=== PATIENT | female | born 1950 ===

== ENCOUNTER → 2020-07-04 12:29 | Outpatient (BNVA) | payer MEDICARE, SELFPAY | PROVIDERS: PCP Family Medicine; Visit Provider Internal Medicine Cardiovascular Disease | DX: I10 Essential (primary) hypertension (principal); Z79.899 Other long term (current) drug therapy | CPT/HCPCS: 99212 ==

== ENCOUNTER 2020-10-15 10:47 | Outpatient (REF) | payer MEDICARE, SELFPAY ==
--- NOTE | ~2020-10-15 | US_ITS ---
EXAMINATION: PELVIC ULTRASOUND CLINICAL INFORMATION: Pelvic pain COMPARISON: Previous CT of the abdomen and pelvis most recent March 2019 TECHNIQUE: Transabdominal and transvaginal pelvic ultrasound was performed. Transvaginal exam was performed for better visualization of the uterus and ovaries. FINDINGS: The uterus is anteverted and measures 5.1 x 2.7 x 3.9 cm in dimension. No focal uterine lesion is seen. There is fluid in the endometrial cavity and endocervical canal. The endometrium does not appear thickened. Endometrial thickness measures 0.2 cm. No focal uterine lesion is seen. The ovaries are not seen. There is no fluid in the pelvis. US/US transvaginal IMPRESSION: Fluid in the endometrial and endocervical canal. The endometrium does not appear thickened. The ovaries are not seen.
--- NOTE | ~2020-10-15 | US_ITS ---
EXAMINATION: PELVIC ULTRASOUND CLINICAL INFORMATION: Pelvic pain COMPARISON: Previous CT of the abdomen and pelvis most recent March 2019 TECHNIQUE: Transabdominal and transvaginal pelvic ultrasound was performed. Transvaginal exam was performed for better visualization of the uterus and ovaries. FINDINGS: The uterus is anteverted and measures 5.1 x 2.7 x 3.9 cm in dimension. No focal uterine lesion is seen. There is fluid in the endometrial cavity and endocervical canal. The endometrium does not appear thickened. Endometrial thickness measures 0.2 cm. No focal uterine lesion is seen. The ovaries are not seen. There is no fluid in the pelvis. US/US pelvic complete IMPRESSION: Fluid in the endometrial and endocervical canal. The endometrium does not appear thickened. The ovaries are not seen.
== END 2020-10-15 10:48 | disposition home or self-care (01) ==
LOC: HO.US 10:47
PROVIDERS: PCP Family Medicine; Visit Provider Family Medicine
DX: R10.2 Pelvic and perineal pain (principal)
CPT/HCPCS: 76830; 76856

== ENCOUNTER 2021-01-08 07:06 | Emergency (ER) | payer MEDICARE, SELFPAY ==
--- NOTE | ~2021-01-08 | CT_ITS ---
EXAMINATION: CT FACIAL BONES WITHOUT CONTRAST CLINICAL INFORMATION: Dental infection. COMPARISON: None TECHNIQUE: 3 mm thin axial and reformatted 1.5 mm thin sagittal and coronal images of facial bones were obtained. This CT examination was performed using dose optimization techniques as appropriate, variously including the following: *Automated exposure control *Adjustment of mA and/or kV according to patient size (this includes techniques or standardized protocols for targeted exams where dose is matched to indication/reason for exam; i.e. extremities or head) *Use of iterative reconstruction technique DLP: 407 mGy-cm FINDINGS: Patient is rotated to the right. There is no acute maxillofacial fracture. The pterygoid plates are intact. The zygomatic arches are intact. The lamina papyracea are intact. The orbital rims are intact. The paranasal sinuses are well-aerated. No air-fluid levels are seen. There is no deviation of the nasal septum. The ostiomeatal complexes are clear. The lamina papyracea are intact. The ethmoid roofs are symmetric. The carotid canals are normally covered by bone. There are no visible maxillary tooth visualized. Most of the mandibular teeth are visualized. There is minimal periapical cyst left proximal premolar teeth. No additional bony abnormality seen involving the mandible. Minimal left anterior buccal soft tissue swelling is suspected. This best visualized on axial image 19/4. The orbits are normal. The TMJs are unremarkable. The imaged portions of the brain demonstrate no acute abnormality. CT/CT facial bones wo con IMPRESSION: Small left mandibular premolar periapical cyst but no evidence of dental abscess or bony abnormality involving the maxilla and mandible. Minimal soft tissue swelling left mandibular buccal space is suspected. No gas visualized to suspect an abscess.
--- NOTE | 2021-01-08 07:13 | PC.NURSE ---
called for financial systems manager
[2021-01-08 07:26] VITALS: BP 148/80; BP 152/75; PULSE 110; PULSE 112; RESP 18; TEMP 36.6; O2SAT 96; BMI 32.8
--- NOTE | 2021-01-08 07:31 | ED.DENTAL ---
HPI - Dental/Oral General Chief complaint: Dental/Oral Stated complaint: facial pain Time Seen by Provider: 01/08/21 07:31 Source: patient Mode of arrival: EMS Limitations: language barrier History of Present Illness HPI Narrative: patient with dental infection and facial swelling. Patient states that she broke a tooth 2 weeks ago. Last night she started to develop swelling. No fever or chills Onset (ago): day(s) Duration: constant Severity: moderate Related Data Home Medications Medication Instructions Recorded Confirmed aspirin 81 mg chewable tablet 1 tab PO DAILY 07/04/20 07/04/20 atorvastatin 40 mg tablet mg PO 07/04/20 07/04/20 cholecalciferol (vitamin D3) 50 50 mcg PO DAILY 07/04/20 07/04/20 mcg (2,000 unit) capsule hydrochlorothiazide 25 mg tablet 25 mg PO DAILY 07/04/20 07/04/20 lorazepam 1 mg tablet 1 mg PO BID PRN 07/04/20 07/04/20 losartan 100 mg tablet 100 mg PO DAILY 07/04/20 07/04/20 metformin 500 mg tablet,extended 500 mg PO DAILY 07/04/20 07/04/20 release 24 hr metoprolol tartrate 50 mg tablet 50 mg PO BID 07/04/20 07/04/20 ranitidine HCl 150 mg tablet 150 mg PO BID PRN 07/04/20 07/04/20 Previous Rx's Medication Instructions Recorded amlodipine 10 mg tablet 10 mg PO DAILY #60 tab 07/04/20 amoxicillin-pot clavulanate 1 tab PO BID #20 tab 01/08/21 [Augmentin] Allergies Allergy/AdvReac Type Severity Reaction Status Date / Time codeine Allergy Unknown rash Verified 02/29/20 00:00 hydrocodone [HYDROCODONE] Allergy Unknown UNKNOWN Unverified 05/23/20 16:23 levofloxacin [LEVOFLOXACIN] Allergy Unknown UNKNOWN, Unverified 05/23/20 16:23 rash metronidazole [METRONIDAZOLE] Allergy Unknown UNK Unverified 05/23/20 16:23 promethazine [PROMETHAZINE] Allergy Unknown UNKNOWN, Unverified 05/23/20 16:23 rash Codeine Allergy Unknown swelling/ Uncoded 12/13/18 00:00 itching/ hives dye contrast Allergy Unknown red skin Uncoded 02/29/20 00:00 Hydrocodone-Acetaminophen Allergy Unknown rash Uncoded 02/29/20 00:00 [facility]LY [facility] Past Medical History Medical History (Updated 01/08/21 @ 09:50 by Doron Villalba MD) Hypertension Surgical History (Updated 07/04/20 @ 12:48 by DAVONTE Cast) H/O section Family History Family History (Updated 07/04/20 @ 12:48 by DAVONTE Cast) Father No problems noted. Mother CVD (cardiovascular disease) Social History Social History (Updated 07/04/20 @ 12:48 by DAVONTE Cast) Smoking Status: Never smoker Advance Directives: Yes Advance Directives Information Provided: Yes Advance Directives on File: No Physical Exam Vital Signs: Vital Signs: Last Vital Signs Temp 97.8 F 01/08/21 08:51 Pulse 95 01/08/21 08:51 Resp 19 01/08/21 08:51 BP 139/64 01/08/21 08:51 Pulse Ox 98 01/08/21 08:51 Body Mass Index 32.8 MDM - Dental/Oral MDM Narrative Medical decision making narrative: no evidence of deeper space infection. Will dc on augmentin Lab Data Result diagrams: 01/08/21 08:02 01/08/21 08:02 Labs: Lab Results 01/08/21 01/08/21 Range/Units 08:02 08:02 WBC 15.2 H (4.8-10.8) X10*3/uL RBC 4.19 L (4.20-5.50) X10*6/uL Hgb 13.2 (12.0-16.0) g/dl Hct 38.4 (37-47) % MCV 91.6 (80-98) fL MCH 31.5 (27.0-33.0) pg MCHC 34.4 (31.0-35.0) g/dl RDW 12.3 (11.0-16.0) % Plt Count 229 (160-400) X10*3/uL MPV 10.6 (9.4-12.3) fL Immature Gran % (Auto) 0.4 (0.0-0.4) % Neut % (Auto) 85.7 H (45-73) % Lymph % (Auto) 6.1 L (20-40) % [place] % (Auto) 7.5 (2-11) % Eos % (Auto) 0.1 (0-4) % Baso % (Auto) 0.2 (0-2) % Lymph # (Auto) 0.9 L (1.2-4.9) X10*3/uL [place] # (Auto) 1.1 (0.1-1.2) X10*3/uL Eos # (Auto) 0.0 (0.0-0.4) X10*3/uL Baso # (Auto) 0.0 (0.0-0.2) X10*3/uL Abs Immat Gran (auto) 0.06 H (0.00-0.03) X10*3/uL Absolute Neuts (auto) 13.0 H (2.0-8.3) X10*3/uL Absolute Nucleated RBC 0.000 (0.0-0.012) X10*3/uL Nucleated RBC % (auto) 0.0 (0.0-0.2) /100WBC Sodium 138 (135-145) mmol/L Potassium 3.6 (3.3-5.1) mmol/L Chloride 100 (96-108) mmol/L Carbon Dioxide 28 (22-29) mmol/L Anion Gap 14 (12-20) BUN 10 (9-16) mg/dL Creatinine 0.73 (0.5-1.4) mg/dL Estim Creat Clear Calc 69.1 Estimated GFR > 60 Random Glucose 162 H (60-115) mg/dL Calcium 9.4 (8.4-10.2) mg/dL Imaging Data facial CT: Radiologist's impression: IMPRESSION: Small left mandibular premolar periapical cyst but no evidence of dental abscess or bony abnormality involving the maxilla and mandible. Minimal soft tissue swelling left mandibular buccal space is suspected. No gas visualized to suspect an abscess. Discharge Plan Discharge Clinical Impression: Dental abscess, Dental caries Patient Disposition: Home, Self-Care Instructions: Dental Abscess (ED), Mouth Care (ED) Prescriptions: New amoxicillin-pot clavulanate [Augmentin] 875-125 mg tablet 1 tab PO BID Qty: 20 RF: 0 No Action ranitidine HCl 150 mg tablet 150 mg PO BID PRN (Reason: gas) RF: 0 metformin 500 mg tablet extended release 24 hr 500 mg PO DAILY RF: 0 metoprolol tartrate 50 mg tablet 50 mg PO BID RF: 0 losartan 100 mg tablet 100 mg PO DAILY RF: 0 lorazepam 1 mg tablet 1 mg PO BID PRN (Reason: anxiety) RF: 0 cholecalciferol (vitamin D3) 50 mcg (2,000 unit) capsule 50 mcg PO DAILY RF: 0 atorvastatin 40 mg tablet PO RF: 0 hydrochlorothiazide 25 mg tablet 25 mg PO DAILY RF: 0 aspirin 81 mg tablet,chewable 1 tab PO DAILY RF: 0 amlodipine 10 mg tablet 10 mg PO DAILY Qty: 60 RF: 3 Referrals: Physician,Unknown [Primary Care Provider] - 2 days
--- NOTE | 2021-01-08 07:36 | PC.NURSE ---
dr snow at bedside waiting for nursing staff development coordinator
[2021-01-08] MEDS: Ampicillin Sodium/Sulbactam Na 3 GM in 0.9 % Sodium Chloride 100 ML IV (08:16)
[2021-01-08 08:32] LABS: MANUAL DIFF FLAG NO
[2021-01-08 08:41] LABS: Basophils Percent Auto 0.2 % (0-2); Eosinophils Percent Auto 0.1 % (0-4); Hematocrit 38.4 % (37-47); Hemoglobin 13.2 g/dl (12.0-16.0); Imm Gran Abs Auto 0.06 X10*3/uL (0.00-0.03); Imm Gran Pct Auto 0.4 % (0.0-0.4); Lymphocytes Absolute Auto 0.9 X10*3/uL (1.2-4.9); Lymphocytes Percent Auto 6.1 % (20-40); Mean Corpuscular HGB Conc 34.4 g/dl (31.0-35.0); Mean Corpuscular Hemoglobin 31.5 pg (27.0-33.0); Mean Corpuscular Volume 91.6 fL (80-98); Mean Platelet Volume 10.6 fL (9.4-12.3); Monocytes Absolute Auto 1.1 X10*3/uL (0.1-1.2); Monocytes Percent Auto 7.5 % (2-11); Neutrophils Percent Auto 85.7 % (45-73); Platelet Count 229 X10*3/uL (160-400); Red Blood Count 4.19 X10*6/uL (4.20-5.50); Red Cell Distribution Width 12.3 % (11.0-16.0); White Blood Count 15.2 X10*3/uL (4.8-10.8)
[2021-01-08 08:51] VITALS: BP 139/64; PULSE 95; RESP 19; TEMP 36.6; O2SAT 98
[2021-01-08 09:03] LABS: Anion Gap 14 (12-20); Blood Urea Nitrogen 10 mg/dL (9-16); Calcium 9.4 mg/dL (8.4-10.2); Carbon Dioxide 28 mmol/L (22-29); Chloride 100 mmol/L (96-108); Creatinine Clr Calc Pharmacy 69.1; Estimated Glomerular Filt Rate > 60; Glucose Random 162 mg/dL (60-115); Potassium 3.6 mmol/L (3.3-5.1); Sodium 138 mmol/L (135-145)
[2021-01-08 10:07] VITALS: BP 151/63; PULSE 119; RESP 19; TEMP 36.9; O2SAT 98
== END 2021-01-08 10:20 | disposition home or self-care (01) ==
PROVIDERS: Emergency Provider Emergency Medicine
DX: K04.7 Periapical abscess without sinus (principal); K02.9 Dental caries, unspecified; K03.81 Cracked tooth; Z79.899 Other long term (current) drug therapy
CPT/HCPCS: 36415; 70486; 80048; 85025; 87040; 99284; J0295

== ENCOUNTER 2021-02-19 14:39 | Emergency (ER) | payer MEDICARE, SELFPAY ==
--- NOTE | ~2021-02-19 | XR_ITS ---
EXAMINATION: CHEST AND RIGHT RIB X-RAYS CLINICAL INFORMATION: Right posterior rib pain COMPARISON: Previous chest x-ray most recent June 2010 TECHNIQUE: 2 views of the chest and 3 views of the right ribs FINDINGS: Chest: The cardiac silhouette is upper normal in size. Hilar and mediastinal contours are stable. The lungs are clear. There is no pleural effusion or pneumothorax. There are degenerative changes of the thoracic spine. No rib fracture or bone lesion is seen. There are soft tissue calcifications adjacent to the right and tortuosity arthritis at the acromioclavicular joint. XR/XR ribs RT 2V IMPRESSION: No evidence for acute disease in the chest. Upper normal-size cardiac silhouette. No rib fracture.
--- NOTE | ~2021-02-19 | XR_ITS ---
EXAMINATION: CHEST AND RIGHT RIB X-RAYS CLINICAL INFORMATION: Right posterior rib pain COMPARISON: Previous chest x-ray most recent June 2010 TECHNIQUE: 2 views of the chest and 3 views of the right ribs FINDINGS: Chest: The cardiac silhouette is upper normal in size. Hilar and mediastinal contours are stable. The lungs are clear. There is no pleural effusion or pneumothorax. There are degenerative changes of the thoracic spine. No rib fracture or bone lesion is seen. There are soft tissue calcifications adjacent to the right and tortuosity arthritis at the acromioclavicular joint. XR/XR chest 2V IMPRESSION: No evidence for acute disease in the chest. Upper normal-size cardiac silhouette. No rib fracture.
[2021-02-19 14:53] VITALS: BP 186/83; PULSE 86; RESP 18; TEMP 36.6; O2SAT 97; BMI 33.7
--- NOTE | 2021-02-19 15:11 | ECG_ITS ---
Test Reason : R UPPER RIB PAIN Blood Pressure : / mmHG Vent. Rate : 079 BPM Atrial Rate : 079 BPM P-R Int : 150 ms QRS Dur : 102 ms QT Int : 396 ms P-R-T Axes : 062 014 056 degrees QTc Int : 454 ms Normal sinus rhythm Possible Left atrial enlargement Non-specific intra-ventricular conduction block Borderline ECG When compared with ECG of 02-DEC-2019 00:55, No significant changes seen Referred By: Uriel Cunningham Electronically Signed By:LAWANAD KEEN
--- NOTE | 2021-02-19 15:18 | ED_ITS ---
HPI - General Adult General Chief complaint: General Medical Stated complaint: back pain Time Seen by Provider: 02/19/21 15:10 Source: patient Mode of arrival: ambulatory Limitations: no limitations History of Present Illness HPI narrative: Patient presents to the ED for right posterior upper back/rib pain for the past 5 days. Patient denies any trauma. Patient states pain on range of motion. Patient denies any abdominal pain, nausea, vomiting, fever, chills, dysuria, hematuria, or any recent trauma. Related Data Home Medications Medication Instructions Recorded Confirmed aspirin 81 mg chewable tablet 1 tab PO DAILY 07/04/20 07/04/20 atorvastatin 40 mg tablet mg PO 07/04/20 07/04/20 cholecalciferol (vitamin D3) 50 50 mcg PO DAILY 07/04/20 07/04/20 mcg (2,000 unit) capsule hydrochlorothiazide 25 mg tablet 25 mg PO DAILY 07/04/20 07/04/20 lorazepam 1 mg tablet 1 mg PO BID PRN 07/04/20 07/04/20 losartan 100 mg tablet 100 mg PO DAILY 07/04/20 07/04/20 metformin 500 mg tablet,extended 500 mg PO DAILY 07/04/20 07/04/20 release 24 hr metoprolol tartrate 50 mg tablet 50 mg PO BID 07/04/20 07/04/20 ranitidine HCl 150 mg tablet 150 mg PO BID PRN 07/04/20 07/04/20 Previous Rx's Medication Instructions Recorded amlodipine 10 mg tablet 10 mg PO DAILY #60 tab 07/04/20 amoxicillin-pot clavulanate 1 tab PO BID #20 tab 01/08/21 [Augmentin] cyclobenzaprine 10 mg PO TID PRN #18 tab 02/19/21 naproxen 500 mg PO BID PRN #20 tab 02/19/21 Allergies Allergy/AdvReac Type Severity Reaction Status Date / Time codeine Allergy Unknown rash Verified 02/19/21 15:00 hydrocodone [HYDROCODONE] Allergy Unknown UNKNOWN Verified 02/19/21 15:00 levofloxacin [LEVOFLOXACIN] Allergy Unknown UNKNOWN, Verified 02/19/21 15:00 rash metronidazole [METRONIDAZOLE] Allergy Unknown UNK Verified 02/19/21 15:00 promethazine [PROMETHAZINE] Allergy Unknown UNKNOWN, Verified 02/19/21 15:00 rash Codeine Allergy Unknown swelling/ Uncoded 12/13/18 00:00 itching/ hives dye contrast Allergy Unknown red skin Uncoded 02/29/20 00:00 Hydrocodone-Acetaminophen Allergy Unknown rash Uncoded 02/29/20 00:00 Review of Systems Review of Systems: Yes all other systems are reviewed and are negative Constitutional: Constitutional: Reports as per HPI and Reports no additional constitutional complaints Eyes: Eyes: Reports as per HPI and Reports no additional eye complaints ENT: Reports system reviewed and no additional complaints, except as documented and Reports as per HPI Cardiovascular: Cardiovascular: Reports as per HPI, Reports no additional cardiovascular complaints, Denies dyspnea and Denies dyspnea on exertion Comments: Right posterior rib pain Respiratory: Respiratory: Reports as per HPI, Reports no additional respiratory complaints, Reports pain on inspiration, Denies dyspnea and Denies dyspnea on exertion Gastrointestinal: Gastrointestinal: Reports as per HPI, Reports no additional gastrointestinal complaints, Denies abdominal pain, Denies nausea and Denies vomiting Genitourinary: Genitourinary: Reports no additional female genitourinary complaints and Reports as per HPI Musculoskeletal: Musculoskeletal: Reports no additional musculoskeletal complaints and Reports as per HPI Neurologic: Reports system reviewed and no additional complaints, except as documented and Reports as per HPI Psychiatric: Psychiatric: Reports no additional psychiatric complaints and Reports as per HPI [facility] Past Medical History Medical History (Updated 02/19/21 @ 17:27 by CAM Jimenez) Hypertension Surgical History (Updated 07/04/20 @ 12:48 by DAVONTE Cast) H/O section Family History Family History (Updated 07/04/20 @ 12:48 by DAVONTE Cast) Father No problems noted. Mother CVD (cardiovascular disease) Social History Social History (Updated 07/04/20 @ 12:48 by DAVONTE Cast) Advance Directives: No Advance Directives Information Provided: Yes Physical Exam Vital Signs: Vital Signs: Last Vital Signs Temp 97.8 F 02/19/21 17:56 Pulse 81 02/19/21 17:56 Resp 16 02/19/21 17:56 BP 168/78 H 02/19/21 17:56 Pulse Ox 97 02/19/21 17:56 Body Mass Index 33.7 Const: General: cooperative, healthy appearing and acute distress Orientation/consciousness: patient oriented x3 HENMT: Head: Yes normal to inspection, Yes No palpable skull fracture present, Yes normocephalic and Yes atraumatic Eyes: General: appearance normal, both eyes and all related structures Neck: Neck: Yes normal visual inspection, Yes full ROM, Yes no lymphadenopathy, Yes no meningeal signs, Yes trachea midline, Yes supple and No tender Chest: Other: Positive for right posterior rib tenderness on palpation. Chest palpation & inspection: normal inspection of the chest Resp: Effort & Inspection: normal respiratory effort and able to speak in complete sentences Auscultation: clear to auscultation bilaterally Cardio: Jugular venous distension: no JVD Heart sounds: S1 normal heart sound present and S2 normal heart sound present GI: Inspection: Yes normal to inspection and No abdominal wall ecchymosis Palpation (GI): Soft to palpation, not firm, nontender, no guarding and not rigid : General: No CVA tenderness and Yes no CVA tenderness Back/Spine/Pelvis: Back: no CVA tenderness, No CVA tenderness and No back tenderness Skin: General skin exam: no rashes or lesions noted and elasticity normal Neuro: General: patient oriented x3, gait normal, no meningeal signs and CN's II-XI intact bilaterally Cranial nerves: Yes CN's II-XII intact bilaterally Extrem: Other: Lower extremities negative for swelling, pitting edema, calf tenderness Psych: Appearance: grossly normal, well kempt and not disheveled Course Course Course Narrative: And seems muscular but due to ag will do labs, EKG, and D- dimer. Toradol and Flexeril ordered. Reevaluation(s) Reevaluation #1: EKG negative STEMI. Troponin negative. Checks and rib x-ray negative for any fractures or pneumonia. D-dimer negative. Wells score criteria 0. Once again right upper posterior rib pain worse only on movement. UA normal. Negative for CVA of flanks or flank pain. Patient is safe for discharge. Patient feeling better after meds Time: 17:24 Medical Decision Making [facility] Narrative Medical decision making narrative: Back strain/sprain Lab Data Result diagrams: 02/19/21 15:52 02/19/21 15:52 Labs: Lab Results 02/19/21 02/19/21 02/19/21 Range/Units 15:38 15:51 15:52 WBC 7.5 (4.8-10.8) X10*3/uL RBC 3.97 L (4.20-5.50) X10*6/uL Hgb 12.5 (12.0-16.0) g/dl Hct 36.5 L (37-47) % MCV 91.9 (80-98) fL MCH 31.5 (27.0-33.0) pg MCHC 34.2 (31.0-35.0) g/dl RDW 12.7 (11.0-16.0) % Plt Count 221 (160-400) X10*3/uL MPV 10.5 (9.4-12.3) fL Immature Gran % (Auto) 0.3 (0.0-0.4) % Neut % (Auto) 74.1 H (45-73) % Lymph % (Auto) 15.7 L (20-40) % [place] % (Auto) 7.6 (2-11) % Eos % (Auto) 1.9 (0-4) % Baso % (Auto) 0.4 (0-2) % Lymph # (Auto) 1.2 (1.2-4.9) X10*3/uL [place] # (Auto) 0.6 (0.1-1.2) X10*3/uL Eos # (Auto) 0.1 (0.0-0.4) X10*3/uL Baso # (Auto) 0.0 (0.0-0.2) X10*3/uL Abs Immat Gran (auto) 0.02 (0.00-0.03) X10*3/uL Absolute Neuts (auto) 5.6 (2.0-8.3) X10*3/uL Absolute Nucleated RBC 0.000 (0.0-0.012) X10*3/uL Nucleated RBC % (auto) 0.0 (0.0-0.2) /100WBC PT (10.8-13.0) SEC INR (0.9-1.1) APTT (24.1-38.0) SEC D-Dimer NG/ML Sodium (135-145) mmol/L Potassium (3.3-5.1) mmol/L Chloride (96-108) mmol/L Carbon Dioxide (22-29) mmol/L Anion Gap (12-20) BUN (9-16) mg/dL Creatinine (0.5-1.4) mg/dL Estim Creat Clear Calc Estimated GFR Random Glucose (60-115) mg/dL Calcium (8.4-10.2) mg/dL Total Bilirubin (0.0-1.0) mg/dL AST (5-31) U/L ALT (0-31) U/L Alkaline Phosphatase (39-117) U/L Troponin I High Sens < 3.5 (<3.5-17.0) ng/L Total Protein (6.5-8.0) g/dL Albumin (3.5-5.0) g/dL Urine Color YELLOW Urine Appearance HAZY Urine pH 5.5 (5.0-8.0) Ur Specific [place] 1.025 (1.005-1.025) Urine Protein NEG (NEG-TRACE) MG/DL Urine Glucose (UA) NEG (NEG) MG/DL Urine Ketones NEG (NEG) MG/DL Urine Blood TRACE (NEG) Urine Nitrite NEG (NEG) Ur Leukocyte Esterase NEG (NEG) Urine RBC 1-4 (0) /HPF Urine WBC 0-2 (0-4) /HPF Ur Squamous Epith Cells 2+ /LPF Urine Bacteria 1+ /LPF 02/19/21 02/19/21 02/19/21 Range/Units 15:52 15:52 16:47 WBC (4.8-10.8) X10*3/uL RBC (4.20-5.50) X10*6/uL Hgb (12.0-16.0) g/dl Hct (37-47) % MCV (80-98) fL MCH (27.0-33.0) pg MCHC (31.0-35.0) g/dl RDW (11.0-16.0) % Plt Count (160-400) X10*3/uL MPV (9.4-12.3) fL Immature Gran % (Auto) (0.0-0.4) % Neut % (Auto) (45-73) % Lymph % (Auto) (20-40) % [place] % (Auto) (2-11) % Eos % (Auto) (0-4) % Baso % (Auto) (0-2) % Lymph # (Auto) (1.2-4.9) X10*3/uL [place] # (Auto) (0.1-1.2) X10*3/uL Eos # (Auto) (0.0-0.4) X10*3/uL Baso # (Auto) (0.0-0.2) X10*3/uL Abs Immat Gran (auto) (0.00-0.03) X10*3/uL Absolute Neuts (auto) (2.0-8.3) X10*3/uL Absolute Nucleated RBC (0.0-0.012) X10*3/uL Nucleated RBC % (auto) (0.0-0.2) /100WBC PT 12.0 (10.8-13.0) SEC INR 1.0 (0.9-1.1) APTT 32.4 (24.1-38.0) SEC D-Dimer < 200 NG/ML Sodium 137 (135-145) mmol/L Potassium 4.4 D (3.3-5.1) mmol/L Chloride 101 (96-108) mmol/L Carbon Dioxide 25 (22-29) mmol/L Anion Gap 15 (12-20) BUN 19 H D (9-16) mg/dL Creatinine 0.94 (0.5-1.4) mg/dL Estim Creat Clear Calc 54.4 Estimated GFR 59 Random Glucose 147 H (60-115) mg/dL Calcium 9.3 (8.4-10.2) mg/dL Total Bilirubin 0.5 (0.0-1.0) mg/dL AST 30 (5-31) U/L ALT 28 (0-31) U/L Alkaline Phosphatase 57 (39-117) U/L Troponin I High Sens (<3.5-17.0) ng/L Total Protein 7.0 (6.5-8.0) g/dL Albumin 4.4 (3.5-5.0) g/dL Urine Color Urine Appearance Urine pH (5.0-8.0) Ur Specific [place] (1.005-1.025) Urine Protein (NEG-TRACE) MG/DL Urine Glucose (UA) (NEG) MG/DL Urine Ketones (NEG) MG/DL Urine Blood (NEG) Urine Nitrite (NEG) Ur Leukocyte Esterase (NEG) Urine RBC (0) /HPF Urine WBC (0-4) /HPF Ur Squamous Epith Cells /LPF Urine Bacteria /LPF ECG Data Interpretation: Normal sinus rhythm. Possible left atrial enlargement. Ventricular rate 79. Pr interval 150. QRS 102. QTC 454. Negative STEMI Discharge Plan Discharge Clinical Impression: Muscle strain Patient Disposition: Home, Self-Care Instructions: Muscle Strain (ED), Thoracic Back Strain (ED) Additional Instructions: [place] an?lisis de miller result? negativo para un ataque card?aco o riesgo de co?gulos de miller. La radiograf?a de t?rax y la radiograf?a de costillas resultaron negativas para fracturas. [place] an?lisis de miller mostr? un recuento normal de c?lulas sangu?neas, electrolitos normales, funci?n renal normal. An?lisis de orina negativo para UTI. Regrese al servicio de urgencias de inmediato si tiene dolor de pecho, dificultad para respirar, fiebre, escalofr?os, tos con miller, dolor de pantorrilla, hinchaz?n de las piernas, dolor de columna, par?lisis de las extremidades inferiores, incontinencia urinaria / intestinal o cualquier otro s?ntoma preocupante. Prescriptions: New naproxen 500 mg tablet 500 mg PO BID PRN (Reason: pain) Qty: 20 RF: 0 cyclobenzaprine 10 mg tablet 10 mg PO TID PRN (Reason: pain) Qty: 18 RF: 0 No Action amoxicillin-pot clavulanate [Augmentin] 875-125 mg tablet 1 tab PO BID Qty: 20 RF: 0 ranitidine HCl 150 mg tablet 150 mg PO BID PRN (Reason: gas) RF: 0 metformin 500 mg tablet extended release 24 hr 500 mg PO DAILY RF: 0 metoprolol tartrate 50 mg tablet 50 mg PO BID RF: 0 losartan 100 mg tablet 100 mg PO DAILY RF: 0 lorazepam 1 mg tablet 1 mg PO BID PRN (Reason: anxiety) RF: 0 cholecalciferol (vitamin D3) 50 mcg (2,000 unit) capsule 50 mcg PO DAILY RF: 0 atorvastatin 40 mg tablet PO RF: 0 hydrochlorothiazide 25 mg tablet 25 mg PO DAILY RF: 0 aspirin 81 mg tablet,chewable 1 tab PO DAILY RF: 0 amlodipine 10 mg tablet 10 mg PO DAILY Qty: 60 RF: 3 Referrals: Xuan Mckeon MD [Primary Care Provider] - 2 days (See the ED for right posterior rib chest pain that is worse on movement. Rib and chest x-ray negative for pneumonia or fracture. D-dimer negative. Troponin negative. Labs were normal. EKG negative for STEMI. Urine clean.) Interventions: ED Discharge Assessment Last Done: 02/19/21 17:40 Discharge Date/Time: 02/19/21 17:45 Print Language: [place]
[2021-02-19] MEDS: Cyclobenzaprine HCl 10 MG TABLET PO (15:19)
[2021-02-19] MEDS: Ketorolac Tromethamine 30 MG/ML VIAL IM (15:56)
[2021-02-19 15:58] LABS: MANUAL DIFF FLAG NO
[2021-02-19 16:01] LABS: Basophils Percent Auto 0.4 % (0-2); Eosinophils Absolute Auto 0.1 X10*3/uL (0.0-0.4); Eosinophils Percent Auto 1.9 % (0-4); Hematocrit 36.5 % (37-47); Hemoglobin 12.5 g/dl (12.0-16.0); Imm Gran Abs Auto 0.02 X10*3/uL (0.00-0.03); Imm Gran Pct Auto 0.3 % (0.0-0.4); Lymphocytes Absolute Auto 1.2 X10*3/uL (1.2-4.9); Lymphocytes Percent Auto 15.7 % (20-40); Mean Corpuscular HGB Conc 34.2 g/dl (31.0-35.0); Mean Corpuscular Hemoglobin 31.5 pg (27.0-33.0); Mean Corpuscular Volume 91.9 fL (80-98); Mean Platelet Volume 10.5 fL (9.4-12.3); Monocytes Absolute Auto 0.6 X10*3/uL (0.1-1.2); Monocytes Percent Auto 7.6 % (2-11); Neutrophils Absolute Auto 5.6 X10*3/uL (2.0-8.3); Neutrophils Percent Auto 74.1 % (45-73); Platelet Count 221 X10*3/uL (160-400); Red Blood Count 3.97 X10*6/uL (4.20-5.50); Red Cell Distribution Width 12.7 % (11.0-16.0); White Blood Count 7.5 X10*3/uL (4.8-10.8)
[2021-02-19 16:12] LABS: Glucose Urine UA NEG (NEG); Leukocyte Esterase Urine NEG (NEG); Nitrite Urine NEG (NEG); PH 5.5 (5.0-8.0); Specific Gravity - Urine 1.025 (1.005-1.025); Urine Blood TRACE (NEG); Urine Ketones NEG (NEG); Urine Protein NEG (NEG-TRACE)
[2021-02-19 16:26] LABS: Partial Thromboplastin Time 32.4 SEC (24.1-38.0)
[2021-02-19 16:33] LABS: Troponin-I High Sensitivity < 3.5 ng/L (<3.5-17.0)
[2021-02-19 16:35] LABS: Alanine Aminotransferase 28 U/L (0-31); Albumin Level 4.4 g/dL (3.5-5.0); Alkaline Phosphatase 57 U/L (39-117); Anion Gap 15 (12-20); Aspartate Amino Transferase 30 U/L (5-31); Bilirubin Total 0.5 mg/dL (0.0-1.0); Blood Urea Nitrogen 19 mg/dL (9-16); Calcium 9.3 mg/dL (8.4-10.2); Carbon Dioxide 25 mmol/L (22-29); Chloride 101 mmol/L (96-108); Creatinine Clr Calc Pharmacy 54.4; Estimated Glomerular Filt Rate 59; Glucose Random 147 mg/dL (60-115); Potassium 4.4 mmol/L (3.3-5.1); Sodium 137 mmol/L (135-145)
[2021-02-19 16:36] LABS: Color Urine YELLOW
[2021-02-19 16:37] LABS: Appearance Urine HAZY
[2021-02-19 16:59] LABS: WBC Urine 0-2 /HPF (0-4)
[2021-02-19 17:00] LABS: Bacteria Urine 1+ /LPF; Squamous Epithelial Cell Urine 2+ /LPF
[2021-02-19 17:06] LABS: D Dimer < 200 NG/ML
[2021-02-19 17:56] VITALS: BP 168/78; PULSE 81; RESP 16; TEMP 36.6; O2SAT 97
== END 2021-02-19 17:45 | disposition home or self-care (01) ==
PROVIDERS: Physician Assistant; Emergency Provider Emergency Medicine Emergency Medical Services; PCP Family Medicine
DX: S29.012A Strain of muscle and tendon of back wall of thorax, initial encounter (principal); I10 Essential (primary) hypertension; X58.XXXA Exposure to other specified factors, initial encounter; Y93.9 Activity, unspecified; Y92.9 Unspecified place or not applicable; Y99.9 Unspecified external cause status; Z79.899 Other long term (current) drug therapy
CPT/HCPCS: 36415; 71046; 71100; 80053; 81001; 81003; 84484; 85025; 85379; 85610; 85730; 93005; 96372; 99284; 99285; J1885

== ENCOUNTER → 2021-06-18 12:39 | Outpatient (BNVA) | payer MEDICARE, SELFPAY | PROVIDERS: PCP Family Medicine; Referring Provider Family Medicine; Visit Provider Nurse Practitioner Family | DX: R00.2 Palpitations (principal); R06.02 Shortness of breath; I10 Essential (primary) hypertension | CPT/HCPCS: 99212 ==

== ENCOUNTER 2021-10-17 12:24 | Emergency (ER) | payer MEDICARE, SELFPAY ==
[2021-10-17 14:20] VITALS: BP 140/56; PULSE 72; RESP 16; TEMP 36.7; O2SAT 98; BMI 33.5
[2021-10-17 14:45] LABS: MANUAL DIFF FLAG NO
[2021-10-17 14:46] LABS: Basophils Percent Auto 0.5 % (0-2); Eosinophils Absolute Auto 0.1 X10*3/uL (0.0-0.4); Eosinophils Percent Auto 0.9 % (0-4); Hematocrit 37.5 % (37.0-47.0); Hemoglobin 12.9 g/dl (12.0-16.0); Imm Gran Abs Auto 0.03 X10*3/uL (0.00-0.03); Imm Gran Pct Auto 0.4 % (0.0-0.4); Lymphocytes Absolute Auto 1.6 X10*3/uL (1.2-4.9); Lymphocytes Percent Auto 19.5 % (20-40); Mean Corpuscular HGB Conc 34.4 g/dl (31.0-35.0); Mean Corpuscular Hemoglobin 30.8 pg (27.0-33.0); Mean Corpuscular Volume 89.5 fL (80.0-98.0); Monocytes Absolute Auto 0.9 X10*3/uL (0.1-1.2); Monocytes Percent Auto 10.2 % (2-11); Neutrophils Absolute Auto 5.8 x10*3/uL (2.0-8.3); Neutrophils Percent Auto 68.5 % (45-73); Platelet Count 244 X10*3/uL (160-400); Red Blood Count 4.19 X10*6/uL (4.20-5.50); Red Cell Distribution Width 12.3 % (11.0-16.0); White Blood Count 8.4 X10*3/uL (4.8-10.8)
[2021-10-17 15:05] LABS: Alanine Aminotransferase 20 U/L (0-31); Albumin Level 4.5 g/dL (3.5-5.0); Alkaline Phosphatase 61 U/L (39-117); Anion Gap 10 (12-20); Aspartate Amino Transferase 18 U/L (5-31); Bilirubin Total 0.6 mg/dL (0.0-1.0); Blood Urea Nitrogen 13 mg/dL (9-16); Carbon Dioxide 32 mmol/L (22-29); Chloride 96 mmol/L (96-108); Creatinine Clr Calc Pharmacy 66.2; Estimated Glomerular Filt Rate > 60; Glucose Random 101 mg/dL (60-115); Potassium 4.1 mmol/L (3.3-5.1); Sodium 134 mmol/L (135-145); Total Protein 6.9 g/dL (6.5-8.0)
[2021-10-17 15:39] LABS: Appearance Urine CLEAR; Color Urine YELLOW; Glucose Urine UA NEG (NEG); Leukocyte Esterase Urine NEG (NEG); Nitrite Urine NEG (NEG); PH 6.5 (5.0-8.0); Specific Gravity - Urine <= 1.005 (1.005-1.025); Urine Blood NEG (NEG); Urine Ketones NEG (NEG); Urine Protein NEG (NEG-TRACE)
[2021-10-17 18:20] VITALS: BP 186/72; PULSE 96; RESP 16; O2SAT 99
[2021-10-17 21:06] LABS: Glucose, Whole Blood 141 mg/dL (60-115)
== END 2021-10-17 22:16 | disposition left against medical advice (07) ==
PROVIDERS: Emergency Provider Emergency Medicine
DX: R10.9 Unspecified abdominal pain (principal)
CPT/HCPCS: 36415; 80053; 81003; 82947; 85025; 99283

== ENCOUNTER 2021-11-27 10:57 | Outpatient (REF) | payer OTHER, SELFPAY ==
--- NOTE | ~2021-11-27 | MM_ITS ---
EXAMINATION: MM SCREENING DIGITAL BREAST TOMOSYNTHESIS, BILATERAL CLINICAL INFORMATION: Screening. Asymptomatic. The lifetime risk of breast cancer based on the Tyrer-Cuzick Model is 4.0%. COMPARISON: Mammography: May 18, 2019 and studies dating back to March 20, 2008 TECHNIQUE: Digital breast tomosynthesis is performed in both the craniocaudal and mediolateral oblique views along with computer-aided detection (CAD). Synthesized 2D images are generated from the tomosynthesis. FINDINGS: There are scattered areas of fibroglandular density (ACR BI-RADS breast composition Category b). There are no significant masses, abnormal calcifications, or other abnormalities. MM/MM tomosynthesis screening BI IMPRESSION: There are no significant changes from prior study. ASSESSMENT: BI-RADS 1: Negative RECOMMENDATION: Routine annual mammography screening. This patient's information was entered into a reminder system with a target due date for their next mammogram.
== END 2021-11-27 10:58 | disposition home or self-care (01) ==
LOC: HO.MAMMO 10:57
PROVIDERS: PCP Family Medicine; Visit Provider Emergency Medicine
DX: Z12.31 Encounter for screening mammogram for malignant neoplasm of breast (principal)
CPT/HCPCS: 77063; 77067

== ENCOUNTER → 2021-12-17 14:07 | Outpatient (BNVA) | payer OTHER, SELFPAY | PROVIDERS: PCP Family Medicine; Referring Provider Family Medicine; Visit Provider Nurse Practitioner Family | DX: I10 Essential (primary) hypertension (principal); R00.2 Palpitations; R06.02 Shortness of breath; R07.89 Other chest pain; M79.7 Fibromyalgia; Z88.8 Allergy status to other drugs, medicaments and biological substances; Z88.6 Allergy status to analgesic agent; Z88.1 Allergy status to other antibiotic agents; Z91.041 Radiographic dye allergy status; Z79.82 Long term (current) use of aspirin; Z79.84 Long term (current) use of oral hypoglycemic drugs; Z79.899 Other long term (current) drug therapy | CPT/HCPCS: 93005; 99212 ==

== ENCOUNTER 2022-01-22 08:49 | Outpatient (REF) | payer OTHER, SELFPAY ==
--- NOTE | ~2022-01-22 | US_ITS ---
EXAMINATION: US ABDOMEN COMPLETE CLINICAL INFORMATION: Right upper quadrant pain. COMPARISON: CT abdomen and pelvis 03/07/2019. TECHNIQUE: Real-time imaging of the abdominal viscera. FINDINGS: PANCREAS: Normal. ABDOMINAL AORTA: The proximal, mid, and distal segments are normal in caliber. INFERIOR VENA CAVA: Visualized portions are normal. LIVER: The liver is normal in size. The liver contour is normal. There is increased liver echogenicity. There is an anechoic left hepatic lobe cyst measuring 1.4 x 1.1 x 1.3 cm. There is no intrahepatic biliary duct dilatation seen. GALLBLADDER: Surgically absent. COMMON BILE DUCT: Normal in caliber measuring 0.4 cm in diameter. RIGHT KIDNEY: No renal calculi or focal parenchymal lesions. The kidney measures 10.0 cm in maximum dimension. There is mild right hydronephrosis. LEFT KIDNEY: There is an anechoic cyst measuring 2.9 x 2.1 x 2.1 cm in the midpole. There is mild renal pelvic fullness. No echogenic stones or solid mass is seen. The kidney measures 12.1 cm in maximum dimension. SPLEEN: Normal. The spleen measures 8.6 cm in maximum dimension. FREE FLUID: None. US/US abdomen complete IMPRESSION: Left hepatic lobe cyst. Mild hepatic steatosis. Mild right hydronephrosis with no obstructive etiology seen. Small midpole left renal cyst with mild pelvic fullness.
== END 2022-01-22 08:50 | disposition home or self-care (01) ==
LOC: HO.US 08:49
PROVIDERS: Visit Provider Family Medicine
DX: R10.11 Right upper quadrant pain (principal); Z90.49 Acquired absence of other specified parts of digestive tract
CPT/HCPCS: 76700

== ENCOUNTER 2022-03-03 08:12 | Emergency (ER) | payer OTHER, SELFPAY ==
--- NOTE | ~2022-03-03 | CT_ITS ---
EXAMINATION: CT ABDOMEN AND PELVIS WITHOUT CONTRAST CLINICAL INFORMATION: Lower back/right flank/right hip pain. COMPARISON: Ultrasound abdomen 01/22/2022 TECHNIQUE: Multidetector volumetric imaging was performed from the superior aspect of the liver through the pubic symphysis. Sagittal and coronal reformatted images were obtained on the technologist's workstation. This CT examination was performed using dose optimization techniques as appropriate, variously including the following: *Automated exposure control *Adjustment of mA and/or kV according to patient size (this includes techniques or standardized protocols for targeted exams where dose is matched to indication/reason for exam; i.e. extremities or head) *Use of iterative reconstruction technique DLP: 592 mGy-cm FINDINGS: LUNG BASES: The heart size is enlarged. There is lingular atelectasis. LIVER, GALLBLADDER, AND BILIARY TREE: The liver is normal in size, shape, and attenuation. There is a 1.1 cm hypodensity left hepatic lobe axial image 20/3. No additional lesions seen. There is no intrahepatic ductal dilatation.. The gallbladder has been surgically removed. PANCREAS: Unremarkable. SPLEEN: Unremarkable. ADRENAL GLANDS: There is a left adrenal nodule measuring 1.5 x 1.2 cm. It measures 10 Hounsfield units and likely benign. The right adrenal gland is normal. KIDNEYS AND URETERS: Both kidneys are normal size, shape and position. No radiopaque renal calculi seen. There are bilateral extrarenal kidney pelvises with bilateral perinephric stranding. BLADDER: Unremarkable. GASTROINTESTINAL TRACT: There is scattered stool, gas and diverticuli seen throughout the colon without distention.. The small bowel loops are normal caliber. Appendix is normal caliber. No free air or free fluid is seen. ABDOMINAL WALL: No significant hernia is appreciated. LYMPH NODES: Normal. VASCULAR: Bilateral sclerotic calcification abdominal aorta is noted without aneurysmal dilatation. PELVIC VISCERA: The uterus is anteverted and appears unremarkable. No adnexal mass or free fluid seen. OSSEOUS STRUCTURES: Mild degenerative disc changes with vacuum disc phenomena is seen virtually at every lumbar disc levels with spondylosis. No aggressive lytic or sclerotic process seen. There is posterior spondylosis resulting in mild canal narrowing at L1-L2 disc level. The hip joints are symmetrical and unremarkable. The pelvic bones are unremarkable. CT/CT abdomen pelvis wo con IMPRESSION: No acute intra-abdominal process seen. Moderate constipation with colonic diverticulosis but no diverticulitis. Bilateral extrarenal kidney pelvises and bilateral perinephric stranding but no obstructive radiopaque calculi seen. Benign left adrenal lesion. Left hepatic lobe cyst. Fleischner guidelines were followed.
[2022-03-03 08:45] VITALS: BP 166/63; PULSE 88; RESP 18; TEMP 36.9; O2SAT 96; BMI 32.5
--- NOTE | 2022-03-03 09:50 | ED.GENADULT ---
HPI - General Adult General Chief complaint: General Medical Stated complaint: Fall 1 month ago/R hip pain Time Seen by Provider: 03/03/22 09:05 Source: patient Mode of arrival: ambulatory Limitations: language barrier ([place]i-speaking) History of Present Illness HPI narrative: 71-year-old female with a past medical history of type 2 diabetes, vitamin B12 deficiency, diverticulosis, chronic gastritis, adrenal incidentaloma, heart palpitations, fibromyalgia, dyslipidemia, arthritis of bilateral knees, cirrhosis, varicose veins, obstructive sleep apnea and glaucoma presenting to the ED with complaints of right back/flank/right hip pain intermittent for the past month after she had a near fall in her house although she was able to grab onto the washing machine and she did not actually fall. She denies any other injuries, fevers, dizziness, headaches, neck pain/stiffness/injury, chest pain or shortness of breath, dyspnea on exertion, nausea/vomiting/diarrhea, urinary bowel incontinence or retention, constipation, black or bloody stools, dysuria, hematuria, abnormal vaginal discharge, rashes, recent travel or sick contacts, history of IV drug use, history of cancer, paresthesias or palpitations at this time or any other symptoms complaints or concerns at this time. MD complaint: Right back/flank/hip pain Onset (ago): month(s) (1) Location: back, right and lower extremity (hip) Radiation: non-radiation Severity: mild Quality: aching Pain Consistency: intermittent Relieving factors: none Exacerbating factors: none (Patient reports it just comes on suddenly) Associated symptoms: denies other symptoms Treatments prior to arrival: none Related Data Home Medications Medication Instructions Recorded Confirmed aspirin 81 mg chewable tablet 1 tab PO DAILY 07/04/20 12/18/21 atorvastatin 40 mg tablet mg PO 07/04/20 12/18/21 cholecalciferol (vitamin D3) 50 50 mcg PO DAILY 07/04/20 12/18/21 mcg (2,000 unit) capsule hydrochlorothiazide 25 mg tablet 25 mg PO DAILY 07/04/20 12/18/21 lorazepam 1 mg tablet 1 mg PO BID PRN anxiety 07/04/20 12/18/21 losartan 100 mg tablet 100 mg PO DAILY 07/04/20 12/18/21 metformin 500 mg tablet,extended 500 mg PO DAILY 07/04/20 12/18/21 release 24 hr metoprolol tartrate 50 mg tablet 50 mg PO BID 07/04/20 12/18/21 ranitidine HCl 150 mg tablet 150 mg PO BID PRN gas 07/04/20 12/18/21 omeprazole 20 mg capsule,delayed 20 mg PO DAILY 12/17/21 12/18/21 release tizanidine 4 mg tablet 4 mg PO BEDTIME 12/17/21 12/18/21 Previous Rx's Medication Instructions Recorded amoxicillin 875 mg-potassium 1 tab PO BID #20 tabs 01/08/21 clavulanate 125 mg tablet (Augmentin) cyclobenzaprine 10 mg tablet 10 mg PO TID PRN pain #18 tabs 02/19/21 naproxen 500 mg tablet 500 mg PO BID PRN pain #20 tabs 02/19/21 amlodipine 10 mg tablet 10 mg PO DAILY 30 days #30 tabs 03/18/21 cyclobenzaprine 10 mg tablet 10 mg PO Q8H PRN Muscle spasm #14 03/03/22 tabs docusate sodium 100 mg capsule 100 mg PO BID PRN Constipation #14 03/03/22 (Colace) caps naproxen 500 mg tablet 500 mg PO BID PRN pain #14 tabs 03/03/22 Allergies Allergy/AdvReac Type Severity Reaction Status Date / Time codeine Allergy Unknown rash Verified 12/17/21 14:23 hydrocodone [HYDROCODONE] Allergy Unknown UNKNOWN Verified 12/17/21 14:23 levofloxacin [LEVOFLOXACIN] Allergy Unknown UNKNOWN, Verified 12/17/21 14:23 rash metronidazole [METRONIDAZOLE] Allergy Unknown UNK Verified 12/17/21 14:23 promethazine [PROMETHAZINE] Allergy Unknown UNKNOWN, Verified 12/17/21 14:23 rash Codeine Allergy Unknown swelling/ Uncoded 12/17/21 14:23 itching/ hives dye contrast Allergy Unknown red skin Uncoded 12/17/21 14:23 Hydrocodone-Acetaminophen Allergy Unknown rash Uncoded 12/17/21 14:23 Review of Systems Review of Systems: Constitutional : No trauma, No Weight loss, No Fever, No Chills, ENT/Mouth : No Hearing loss, No Ear Pain, No Nasal Congestion, No Sinus Pain, No Hoarseness, No sore throat, No Rhinorrhea, No Swallowing Difficulty Cardiovascular : No Chest Pain, No SOB Respiratory : No Cough, No Dyspnea Gastrointestinal : No Nausea, No Vomiting, No Diarrhea, No abdominal Pain, No Hematochezia, No Melena Genitourinary : + Right flank pain, No Dysuria, No Urinary Frequency, No Hematuria, No Urinary or Bowel Incontinence/retention Musculoskeletal : + right Back/hip pain, No neck pain, No joint stiffness, No joint swelling Skin : No Skin Lesions, No rash or signs of infection Neuro : No Weakness, No radiation, No Numbness, No Paresthesias, No headache, no loss of bowel or bladder incontinence, no saddle anesthesia, Focal weakness, No radiation Denies history of IV drug usage. Yes all other systems are reviewed and are negative PMFSH Past Medical History Attestation statement: The following information was validated with the patient. Source: old records reviewed, obtained from family and nursing notes reviewed Medical History (Updated 03/03/22 @ 11:31 by CAM Mitchell) Diverticulitis Surgical History H/O section Family History Family History Father No problems noted. Mother CVD (cardiovascular disease) Social History Social History Advance Directives: No Advance Directives Information Provided: Yes Physical Exam ED Vital Signs: Vital Signs - 24 hr 03/03/22 08:45 Temperature 98.5 F Pulse Rate 88 Respiratory Rate 18 Blood Pressure 166/63 H Pulse Oximetry 96 Oxygen Delivery Method Room Air BMI result Body Mass Index 32.5 vital signs have been reviewed as normal and appeared to be correct. Blood pressure 166/63. Heart rate normal. Respiration rate normal. Temperature normal. Oxygen saturation normal. Appearance: Alert. Oriented X3. No acute distress. Head: Normal external exam. Normocephalic. Atraumatic. Eyes: PERRLA. EOMI. Conjunctiva and sclera normal. Eyelids normal. ENT: Pharynx normal. Uvula midline. Moist mucous membranes. Normal voice. No trismus noted. No drooling noted. No muffled voice noted. Neck: Normal inspection. Neck supple. FROM. No adenopathy. Thyroid Normal. No meningeal signs. CVS: Normal heart rate and rhythm. Heart sound normal. Pulses normal throughout. No murmurs/rales/gallops. Respiratory: No respiratory distress. Painless inspiration. Breath sounds normal. No wheezes/rales/rhonchi noted. Chest nontender. No crepitus is noted. No signs of trauma noted. No accessory muscle usage noted or decreased air movement noted. No signs of trauma. Abdomen: Soft and nontender. Bowel sounds normal in all 4 quadrants. No distention noted. No organomegaly noted. No visible injury noted. Back: + right CVA tenderness. No left CVA tenderness noted. Full range of motion noted. Patient mild tenderness palpation to bilateral air musculature to the lumbar region. No mid lumbar tenderness step-offs or deformities noted. No signs of trauma. Patient neuro intact bilaterally and distally on all 4 extremities. Patient's reflexes intact bilaterally and distally on all 4 extremities. No rashes/lesion/induration/fluctuance or signs of infection noted. Skin: Skin warm and dry. Normal skin color. Normal skin turgor. No rashes/lesions/lacerations noted. Extremities: No lower extremity edema. No calf tenderness is noted. Extremities exhibit normal range of motion and nontender. Neuro: Oriented X 3. No motor deficit. No sensory deficit. Reflexes normal. Normal steady gait. No focal neuro deficits noted. CN's II-XII intact bilaterally? Vascular: + radial pulses/+ 2 distal pedal pulses/+2 dorsalis pedis b/l. Normal cap refill. No cyanosis noted to upper extremity nails and lower extremity toes nails. Course Course Course Narrative: 9:15am - Pt c likely muscular pain, but could be herniated disc. Neuro exam shows no deficits. Not c/w AAA/epidural abscess/dissection.No high risk Hx (Incont, fever, immunosupp, recent surgery/LP, coag, signif trauma, wt loss, puls mass, hx/o Ca, TB, or IVDU) to warrant MRI today. Not c/w Pyelospinal fx. Not cauda equina syndrome. Although due to patient having right flank pain will obtain a UA and a CT scan abdomen pelvis without IV contrast to evaluate for possible UTI versus kidney stones and re-evaluate. Reevaluation(s) Reevaluation #1: UA within normal limits no evidence of UTI. CT scan abdomen pelvis revealed mild constipation with colonic diverticulosis no acute diverticulitis and other chronic changes no acute processes. Will DC home with treatment for musculoskeletal treatment and instructions return if any new or worsening symptoms follow up with primary care provider. Patient understands agrees with this plan. Time: 11:29 Medical Decision Making Medical Records Medical records reviewed: Yes I reviewed the patient's medical records. Lab Data Lab results reviewed: Yes I reviewed the patient's lab results. Labs: Lab Results 03/03/22 Range/Units 09:45 Urine Color YELLOW Urine Appearance CLEAR Urine pH 6.5 (5.0-8.0) Ur Specific [place] 1.015 (1.005-1.025) Urine Protein NEG (NEG-TRACE) MG/DL Urine Glucose (UA) NEG (NEG) MG/DL Urine Ketones NEG (NEG) MG/DL Urine Blood NEG (NEG) Urine Nitrite NEG (NEG) Ur Leukocyte Esterase NEG (NEG) Imaging Data CT scan of lumbar spine without contrast: Attestation: I personally reviewed and interpreted this imaging study as follows: Radiologist's impression: FINDINGS: LUNG BASES: The heart size is enlarged. There is lingular atelectasis. LIVER, GALLBLADDER, AND BILIARY TREE: The liver is normal in size, shape, and attenuation. There is a 1.1 cm hypodensity left hepatic lobe axial image 20/3. No additional lesions seen. There is no intrahepatic ductal dilatation.. The gallbladder has been surgically removed.? PANCREAS: Unremarkable.? SPLEEN: Unremarkable.? ADRENAL GLANDS: There is a left adrenal nodule measuring 1.5 x 1.2 cm. It measures 10 Hounsfield units and likely benign. The right adrenal gland is normal. KIDNEYS AND URETERS: Both kidneys are normal size, shape and position. No radiopaque renal calculi seen. There are bilateral extrarenal kidney pelvises with bilateral perinephric stranding.? BLADDER: Unremarkable.? GASTROINTESTINAL TRACT: There is scattered stool, gas and diverticuli seen throughout the colon without distention.. The small bowel loops are normal caliber. Appendix is normal caliber. No free air or free fluid is seen.? ABDOMINAL WALL: No significant hernia is appreciated.? LYMPH NODES: Normal. VASCULAR: Bilateral sclerotic calcification abdominal aorta is noted without aneurysmal dilatation. PELVIC VISCERA: The uterus is anteverted and appears unremarkable. No adnexal mass or free fluid seen.? OSSEOUS STRUCTURES: Mild degenerative disc changes with vacuum disc phenomena is seen virtually at every lumbar disc levels with spondylosis. No aggressive lytic or sclerotic process seen. There is posterior spondylosis resulting in mild canal narrowing at L1-L2 disc level.? The hip joints are symmetrical and unremarkable. The pelvic bones are unremarkable. CT/CT abdomen pelvis wo con IMPRESSION: No acute intra-abdominal process seen. ? Moderate constipation with colonic diverticulosis but no diverticulitis. ? Bilateral extrarenal kidney pelvises and bilateral perinephric stranding but no obstructive radiopaque calculi seen. ? ? Benign left adrenal lesion. ? Left hepatic lobe cyst. ? Fleischner guidelines were followed. Discharge Plan Discharge Clinical Impression: Lumbar strain, Strain of muscle of right hip, Constipation, Benign liver cyst Patient Disposition: Home, Self-Care Instructions: Constipation (ED), Muscle Strain (ED) Prescriptions: New naproxen 500 mg tablet 500 mg PO BID PRN (Reason: pain) Qty: 14 0RF cyclobenzaprine 10 mg tablet 10 mg PO Q8H PRN (Reason: Muscle spasm) Qty: 14 0RF docusate sodium [Colace] 100 mg capsule 100 mg PO BID PRN (Reason: Constipation) Qty: 14 0RF No Action amlodipine 10 mg tablet 10 mg PO DAILY 30 Days Qty: 30 1RF Rx Instructions: Please call and schedule a cardiology appointment - overdue naproxen 500 mg tablet 500 mg PO BID PRN (Reason: pain) Qty: 20 0RF cyclobenzaprine 10 mg tablet 10 mg PO TID PRN (Reason: pain) Qty: 18 0RF Rx Instructions: El efecto secundario es la somnolencia. No lo tome en el trabajo o mientras conduce. amoxicillin-pot clavulanate [Augmentin] 875-125 mg tablet 1 tab PO BID Qty: 20 0RF ranitidine HCl 150 mg tablet 150 mg PO BID PRN (Reason: gas) metformin 500 mg tablet extended release 24 hr 500 mg PO DAILY metoprolol tartrate 50 mg tablet 50 mg PO BID losartan 100 mg tablet 100 mg PO DAILY lorazepam 1 mg tablet 1 mg PO BID PRN (Reason: anxiety) cholecalciferol (vitamin D3) 50 mcg (2,000 unit) capsule 50 mcg PO DAILY atorvastatin 40 mg tablet PO hydrochlorothiazide 25 mg tablet 25 mg PO DAILY aspirin 81 mg tablet,chewable 1 tab PO DAILY tizanidine 4 mg tablet 4 mg PO BEDTIME omeprazole 20 mg capsule,delayed release(DR/EC) 20 mg PO DAILY Referrals: Xuan Mckeon MD [Primary Care Provider] - 2 days Print Language: [place]i
[2022-03-03 09:57] LABS: Appearance Urine CLEAR; Color Urine YELLOW; Glucose Urine UA NEG (NEG); Leukocyte Esterase Urine NEG (NEG); Nitrite Urine NEG (NEG); PH 6.5 (5.0-8.0); Specific Gravity - Urine 1.015 (1.005-1.025); Urine Blood NEG (NEG); Urine Ketones NEG (NEG); Urine Protein NEG (NEG-TRACE)
== END 2022-03-03 11:39 | disposition home or self-care (01) ==
PROVIDERS: Physician Assistant Medical; Emergency Provider Emergency Medicine; PCP Family Medicine
DX: S39.012A Strain of muscle, fascia and tendon of lower back, initial encounter (principal); S76.011A Strain of muscle, fascia and tendon of right hip, initial encounter; K59.00 Constipation, unspecified; K76.89 Other specified diseases of liver; E11.9 Type 2 diabetes mellitus without complications; X58.XXXA Exposure to other specified factors, initial encounter; Y93.9 Activity, unspecified; Y92.009 Unspecified place in unspecified non-institutional (private) residence as the place of occurrence of the external cause; Y99.9 Unspecified external cause status
CPT/HCPCS: 74176; 81003; 99283; 99284

== ENCOUNTER 2022-03-16 08:48 | Outpatient (REF) | payer OTHER, SELFPAY ==
--- NOTE | ~2022-03-16 | XR_ITS ---
EXAMINATION: XR HIP, RIGHT CLINICAL INFORMATION: Right hip pain. COMPARISON: None TECHNIQUE: AP and frog-leg lateral views of the right hip. FINDINGS: Bony alignment and mineralization are normal. The right acetabular joint space is well-maintained. There is mild subchondral sclerosis and peripheral osteophyte formation of the right acetabular roof. The right femoral head appears smooth. There is no fracture or dislocation. No soft tissue calcifications are seen. XR/XR hip RT min 2V IMPRESSION: There is mild osteoarthritic change of the right hip. No fracture or dislocation is seen.
== END 2022-03-16 08:49 | disposition home or self-care (01) ==
LOC: HO.XRAY 08:48
PROVIDERS: PCP Family Medicine; Visit Provider Family Medicine
DX: M25.551 Pain in right hip (principal)
CPT/HCPCS: 73502

== ENCOUNTER 2022-04-22 10:00 | Outpatient (RCR) | payer OTHER, SELFPAY | END 2022-05-08 15:00 | disposition home or self-care (01) | LOC: HO.PT 10:00 | PROVIDERS: PCP Family Medicine; Visit Provider Family Medicine | DX: M54.50 Low back pain, unspecified (principal) | CPT/HCPCS: 97110; 97162 ==

== ENCOUNTER 2022-05-05 09:32 | Emergency (ER) | payer OTHER, SELFPAY ==
[2022-05-05 09:44] VITALS: BP 143/82; PULSE 101; RESP 18; TEMP 36.4; O2SAT 97
--- NOTE | 2022-05-05 10:08 | ED.EXTPRO ---
HPI - Extremity Problem General Chief complaint: Extremity Injury, Upper Stated complaint: L side arm pain Time Seen by Provider: 05/05/22 10:00 Source: patient Mode of arrival: ambulatory Limitations: no limitations History of Present Illness HPI Narrative: 71-year-old female with history of fibromyalgia, arthritis, depression, anxiety, psoriasis, diabetes, KRIS, and HTN who presents to the ER for evaluation of 4 days of left upper back and left arm pain. She states she woke up with the pain. She denies any injury or trauma. She states she has a history of chronic neck pain and neck issues, she reports having a CT scan and x-ray 2 months ago. She reports shooting pain coming from the neck and down into the left arm that comes and goes. She reports upper left back pain with muscle spasms. She has been using topical lidocaine patches in taking Flexeril without improvement in her pain. She denies any chest pain or shortness of breath. MD Complaint: extremity pain and other (Back pain and neck pain) Onset (ago): day(s) (4) Pain Consistency: constant Location: left and upper extremity Severity scale (1-10): 7 Quality: aching and sharp Radiation: distal Relieving factors: nothing Exacerbating factors: range of motion and palpation Associated symptoms: myalgias and arthralgias Related Data Home Medications Medication Instructions Recorded Confirmed aspirin 81 mg chewable tablet 1 tab PO DAILY 07/04/20 12/18/21 atorvastatin 40 mg tablet mg PO 07/04/20 12/18/21 cholecalciferol (vitamin D3) 50 50 mcg PO DAILY 07/04/20 12/18/21 mcg (2,000 unit) capsule hydrochlorothiazide 25 mg tablet 25 mg PO DAILY 07/04/20 12/18/21 lorazepam 1 mg tablet 1 mg PO BID PRN anxiety 07/04/20 12/18/21 losartan 100 mg tablet 100 mg PO DAILY 07/04/20 12/18/21 metformin 500 mg tablet,extended 500 mg PO DAILY 07/04/20 12/18/21 release 24 hr metoprolol tartrate 50 mg tablet 50 mg PO BID 07/04/20 12/18/21 ranitidine HCl 150 mg tablet 150 mg PO BID PRN gas 07/04/20 12/18/21 omeprazole 20 mg capsule,delayed 20 mg PO DAILY 12/17/21 12/18/21 release tizanidine 4 mg tablet 4 mg PO BEDTIME 12/17/21 12/18/21 Previous Rx's Medication Instructions Recorded amoxicillin 875 mg-potassium 1 tab PO BID #20 tabs 01/08/21 clavulanate 125 mg tablet (Augmentin) cyclobenzaprine 10 mg tablet 10 mg PO TID PRN pain #18 tabs 02/19/21 naproxen 500 mg tablet 500 mg PO BID PRN pain #20 tabs 02/19/21 amlodipine 10 mg tablet 10 mg PO DAILY 30 days #30 tabs 03/18/21 cyclobenzaprine 10 mg tablet 10 mg PO Q8H PRN Muscle spasm #14 03/03/22 tabs docusate sodium 100 mg capsule 100 mg PO BID PRN Constipation #14 03/03/22 (Colace) caps naproxen 500 mg tablet 500 mg PO BID PRN pain #14 tabs 03/03/22 ibuprofen 600 mg tablet 600 mg PO Q8H PRN pain #14 tabs 05/05/22 tramadol 50 mg tablet 50 mg PO BID PRN severe pain 05/05/22 (scale score 7-10) #6 tabs Allergies Allergy/AdvReac Type Severity Reaction Status Date / Time codeine Allergy Unknown rash Verified 12/17/21 14:23 hydrocodone [HYDROCODONE] Allergy Unknown UNKNOWN Verified 12/17/21 14:23 levofloxacin [LEVOFLOXACIN] Allergy Unknown UNKNOWN, Verified 12/17/21 14:23 rash metronidazole [METRONIDAZOLE] Allergy Unknown UNK Verified 12/17/21 14:23 promethazine [PROMETHAZINE] Allergy Unknown UNKNOWN, Verified 12/17/21 14:23 rash Codeine Allergy Unknown swelling/ Uncoded 12/17/21 14:23 itching/ hives dye contrast Allergy Unknown red skin Uncoded 12/17/21 14:23 Hydrocodone-Acetaminophen Allergy Unknown rash Uncoded 12/17/21 14:23 Review of Systems Review of Systems: Constitutional: No Fever, No Chills ENT/Mouth: No sore throat, No Rhinorrhea, No Swallowing Difficulty Cardiovascular: No Chest Pain, No SOB, No Orthopnea, No Edema Respiratory: No Cough, No Sputum Gastrointestinal: No Nausea, No Vomiting, No Diarrhea, No abdominal Pain Musculoskeletal: + joint pain, + Myalgias Skin: No Skin Lesions, No rash Neuro: No Weakness, No Numbness, No Dizziness, No Headache Psych: No Anxiety/Panic, No Depression Heme/Lymph: No Bruising, No Lymphadenopathy PMFSH Past Medical History Medical History (Updated 05/05/22 @ 12:08 by CAM Lee) Diverticulitis Hypertension Surgical History H/O section Family History Family History Father No problems noted. Mother CVD (cardiovascular disease) Social History Social History Advance Directives: No Advance Directives Information Provided: Yes Physical Exam Vital Signs: Vital Signs: Last Vital Signs Temp 97.5 F 05/05/22 09:44 Pulse 80 05/05/22 11:16 Resp 14 05/05/22 11:16 BP 141/60 H 05/05/22 11:16 Pulse Ox 98 05/05/22 11:16 O2 Del Method 05/05/22 11:16 BMI result Body Mass Index 0.0 Appearance: Alert. Oriented X3. No acute distress. HEENT: normal inspection Neck: normal inspection, no midline tenderness. normal ROM with discomfort with rotation to the right CVS: Normal heart rate and rhythm. Pulses normal. Respiratory: No respiratory distress. Lungs clear throughout. Back: lidocaine patch on left upper back. soft tissue tenderness and palpable spasm of the upper trapezius. no midline tenderness. Skin: Skin warm and dry. Normal skin color. Normal skin turgor. No rashes. Extremities: normal inspection. normal ROM x4. Neuro: Oriented X 3. No motor deficit. No sensory deficit. CN II-XII intact. 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 Course Course Course Narrative: 8-year-old female with history of fibromyalgia, chronic neck issues, diabetes, HTN who presents to the ER for evaluation of 4 days of left upper back, neck and arm pain, nontraumatic. No known injury. She has some soft tissue tenderness and spasm in her left upper back. She has shooting pains down the left arm. This could be consistent with cervical radiculopathy. No imaging in our system but she reports a recent CT scan with disc problems. She last saw her PCP earlier this month, but they did not discuss her neck pain. No emergent need for imaging today. Her exam reveals she is neurologically intact. Will treat with anti-inflammatory and pain medication and re-evaluate. Reevaluation(s) Reevaluation #1: Patient reports significant improvement in her pain. She feels much better. At this time she is stable for discharge home with short course of tramadol as well as follow-up with her outpatient provider. She agrees with plan. Stable for DC. Discharge Plan Discharge Clinical Impression: Cervical radiculopathy, Muscle spasm Patient Disposition: Home, Self-Care Instructions: Cervical Radiculopathy (ED), Muscle Spasm (ED) Additional Instructions: No bending, lifting or twisting. Use ice several times per day for 20 minutes at a time for the next 48 hours and then change to heat. Take medications as prescribed to help with pain and discomfort. Follow up with your Primary Care Doctor this week. If you develop new or worsening symptoms call 911 or come back to the ER for further evaluation. Prescriptions: New tramadol 50 mg tablet 50 mg PO BID PRN (Reason: severe pain (scale score 7-10)) Qty: 6 0RF Rx Instructions: partial fill upon patient request ibuprofen 600 mg tablet 600 mg PO Q8H PRN (Reason: pain) Qty: 14 0RF No Action amlodipine 10 mg tablet 10 mg PO DAILY 30 Days Qty: 30 1RF Rx Instructions: Please call and schedule a cardiology appointment - overdue naproxen 500 mg tablet 500 mg PO BID PRN (Reason: pain) Qty: 20 0RF cyclobenzaprine 10 mg tablet 10 mg PO TID PRN (Reason: pain) Qty: 18 0RF Rx Instructions: El efecto secundario es la somnolencia. No lo tome en el trabajo o mientras conduce. amoxicillin-pot clavulanate [Augmentin] 875-125 mg tablet 1 tab PO BID Qty: 20 0RF naproxen 500 mg tablet 500 mg PO BID PRN (Reason: pain) Qty: 14 0RF cyclobenzaprine 10 mg tablet 10 mg PO Q8H PRN (Reason: Muscle spasm) Qty: 14 0RF docusate sodium [Colace] 100 mg capsule 100 mg PO BID PRN (Reason: Constipation) Qty: 14 0RF ranitidine HCl 150 mg tablet 150 mg PO BID PRN (Reason: gas) metformin 500 mg tablet extended release 24 hr 500 mg PO DAILY metoprolol tartrate 50 mg tablet 50 mg PO BID losartan 100 mg tablet 100 mg PO DAILY lorazepam 1 mg tablet 1 mg PO BID PRN (Reason: anxiety) cholecalciferol (vitamin D3) 50 mcg (2,000 unit) capsule 50 mcg PO DAILY atorvastatin 40 mg tablet PO hydrochlorothiazide 25 mg tablet 25 mg PO DAILY aspirin 81 mg tablet,chewable 1 tab PO DAILY tizanidine 4 mg tablet 4 mg PO BEDTIME omeprazole 20 mg capsule,delayed release(DR/EC) 20 mg PO DAILY Print Language: Micronesian
[2022-05-05 11:16] VITALS: BP 141/60; PULSE 80; RESP 14; O2SAT 98
[2022-05-05] MEDS: Ketorolac Tromethamine 30 MG/ML VIAL IM (11:27)
[2022-05-05] MEDS: traMADoL HCL 50 MG TABLET 25 MG PO (11:28)
== END 2022-05-05 12:36 | disposition home or self-care (01) ==
PROVIDERS: Emergency Provider Emergency Medicine; PCP Family Medicine
DX: M54.12 Radiculopathy, cervical region (principal); M62.830 Muscle spasm of back; E11.9 Type 2 diabetes mellitus without complications; I10 Essential (primary) hypertension; Z79.82 Long term (current) use of aspirin; Z79.02 Long term (current) use of antithrombotics/antiplatelets; Z79.84 Long term (current) use of oral hypoglycemic drugs; Z79.899 Other long term (current) drug therapy
CPT/HCPCS: 96372; 99283; 99284; J1885

== ENCOUNTER 2022-07-03 23:27 | Emergency (ER) | payer OTHER, SELFPAY ==
--- NOTE | ~2022-07-03 | CT_ITS ---
EXAMINATION: CT HEAD WITHOUT CONTRAST CLINICAL INFORMATION: Left-sided paresthesia COMPARISON: 07/03/2010 TECHNIQUE: Contiguous axial imaging was performed from the skull base to vertex without intravenous contrast. This CT examination was performed using dose optimization techniques as appropriate, variously including the following: * Automated exposure control * Adjustment of mA and/or kV according to patient size (this includes techniques or standardized protocols for targeted exams where dose is matched to indication/reason for exam; i.e. extremities or head) Use of iterative reconstruction technique DLP: 623 mGy-cm. FINDINGS: There is no evidence of acute intracranial hemorrhage or territorial infarction. No abnormal mass effect or midline shift is seen. Cheek to white matter differentiation is well preserved. No extra-axial fluid collections are identified. No hydrocephalus. No significant volume loss. There is no abnormal attenuation within the brain parenchyma. Empty sella. The osseous structures and soft tissues are normal. The mastoid air cells and visualized portions of the paranasal sinuses are well aerated. CT/CT head/brain wo IV con IMPRESSION: No acute intracranial pathology. This critical result was discussed with Jose Villa MD by telephone at 07/03/2022 11:50 PM and it was ascertained that the content and urgency of the report was understood at the time of direct communication.
[2022-07-03 23:30] VITALS: BP 155/98; PULSE 88; RESP 17; TEMP 36.8; O2SAT 97; BMI 29.9
[2022-07-03 23:34] VITALS: BP 184/83; PULSE 79; O2SAT 97
--- NOTE | 2022-07-03 23:50 | PC.NURSE ---
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
--- NOTE | 2022-07-03 23:55 | ECG_ITS ---
Test Reason : STROKE Blood Pressure : / mmHG Vent. Rate : 072 BPM Atrial Rate : 072 BPM P-R Int : 154 ms QRS Dur : 106 ms QT Int : 410 ms P-R-T Axes : 058 007 048 degrees QTc Int : 448 ms Sinus rhythm with Premature atrial complexes Possible Left atrial enlargement Intra-ventricular conduction delay Abnormal ECG When compared with ECG of 19-FEB-2021 15:45, Premature atrial complexes are now Present Referred By: Jose Villa Electronically Signed By:CARRINGTON PARHAM MD
[2022-07-03 23:57] VITALS: BP 150/72; PULSE 74; RESP 17; TEMP 36.7; O2SAT 99
[2022-07-04 00:04] LABS: Glucose, Whole Blood 160 mg/dL (60-115)
--- OUTSIDE RECORDS SUMMARY | 2022-07-04 00:09 | XMS_ITS ---
:1950 Author Organization [facility] Address [address] [place] [address] Care Team Providers Name Role Phone Clayton Casanova Jr Unavailable Unavailable PROBLEMS Type Condition ICD9-CM [id number] Onset Condition SNOMED Cod e Code Code Dates Status Problem intermediate Z79.82 Active [id number] (current) use of aspirin Problem Colon cancer Z12.11 Active 3452042 04 screening Problem intermediate Z79.84 Active 507306112 (current) use of oral hypoglycemic drugs ALLERGIES Substance Reaction Event Type Date Status Levofloxacin Unknown Drug Allergy Jun, Active Promethazine HCl Unknown Drug Allergy Jun, Active Metronidazole Unknown Drug Allergy Jun, Active Codeine Sulfate Unknown Drug Allergy Jun, Active Hydrocodone-Acetaminophen Unknown Drug Allergy Jun, Ac tive ENCOUNTERS Encounter Location Date Diagnosis [place] [address] [facility] [address] [address] [place] [address] [facility] [address] [phone] [place] [address], [place] cancer screening [facility] [address] Z12.11 [place] [id number] (current) use of aspirin Z79.82 and termite inspector (current) use of oral hypoglycemic philip gs Z79.84 [place] [address] Sep, [place] term (current) use [facility] [address] of aspirin Z79.8 2 ; Colon [id number] cancer screening Z12.11 and intermediate (c urrent) use of oral hypo glycemic drugs Z79.84 [facility] ER [address] Apr, [place] [id number] [facility] Outpatient [address] [facility] Aug, [place] [id number] [facility] ER [address] January, [place] [id number] IMMUNIZATIONS Vaccine Route Administration Date Status Influenza Unknown Jun 02, 2022 Administered Influenza Unknown Jun 21, 2018 Administered SOCIAL HISTORY Qualifiers Date Never Smoker REASON FOR REFERRAL FUNCTIONAL STATUS PLAN OF CARE Activity Details Follow Up prn Reason: Future/Pending Procedure COLONOSCOPY [id number] Future/Pending Procedure COLONOSCOPY [id number] VITAL SIGNS Weight 172 lbs 2022-06-04 Weight 161 lbs 2018-09-07 Height 61 in 2022-06-04 Height 61 in 2018-09-07 BMI 32.50 kg/m2 2022-06-04 BMI 30.42 kg/m2 2018-09-07 Heart Rate 68 /min 2018-09-07 Temperature 98.1 degrees Fahrenheit 2022-06-04 Blood pressure systolic 000 mm Hg 2022-06-04 Blood pressure diastolic 00 mm Hg 2022-06-04 MEDICATIONS Medication Instructions Dosage Frequency Start End Duration Statu s Date Date Metoprolol Tartrate Orally Twice a 1 tablet 12h 30 d ay(s) Active 50 MG day with food Losartan Potassium Orally Once a 1 tablet 24h 30 day (s) Active 100 MG day Acetaminophen ER 650 Orally every 6 1 tablets Active MG hrs/prn as needed MiraLax (colon prep) Orally begin mixed with May, d ay Active 17 GM/SCOOP at 5:00 p.m. Gatorade 2021 the day before or Crystal the procedure Light LORazepam 1 MG Orally Once a 1 tablet 24h Ac tive day at bedtime as needed Colyte with Flavor Orally Over As Sep, day(s) Active Packs 240 GM the specified directed 2018 time. hydroCHLOROthiazide Orally Once a 1 tablet 24h 30 da y(s) Active 25 MG day in the morning metFORMIN HCl 500 MG Orally Once a 1 tablet 24h 30 d ay(s) Active day with a meal Vitamin D3 2000 UNIT Orally Once a 1 capsule 24h 30 day(s) Active day Ranitidine HCl 150 MG Orally Once a 1 capsule 24h 30 day(s) Active day at bedtime Aspir-81 81 MG Orally Once a 1 tablet 24h 30 day(s) Active day Atorvastatin Calcium Orally Once a 1 tablet 24h 30 d ay(s) Active 20 MG day PROCEDURES Procedure Date Ordered Result Body Site DOC MEDS VERIFIED W/PT OR RE Sep 07, 2018 BMI >=30 CALCUATE W/FOLLOWUP Sep 07, 2018 PATIENT NOT ELIG D/T ACTIVE DX HTN Jun 04, 2022 COLORECTAL CA SCREEN DOC REV Sep 07, 2018 Pt scrn tbco id as non user Jun 04, 2022 FLU IMMUNIZE ORDER/ADMIN Sep 07, 2018 DOC MEDS VERIFIED W/PT OR RE Jun 04, 2022 COLORECTAL CA SCREEN DOC REV Jun 04, 2022 BP SCR PRFRM RCMDD DEFIND SCR INTVL Sep 07, 2018 PRES/ABSN URINE INCON ASSESS Sep 07, 2018 TOBACCO NON-USER Sep 07, 2018 RESULTS No Results REASON FOR VISIT colonoscopy, screening, Please lock 06-04-2022 office note, Patient presents today for a colon screening, screening colonoscopy, Patient presents today for screening colonoscopy Insurance Providers [facility] Health Member Patient Patient Patient Patient Patient Subscriber Subscriber Subscriber Group Insurance Plan Plan Plan Plan ID Relationship Address Phone Name Date of ID Name Date of No Type Insurance Insurance Insurance Coverage to Subscriber Address Phone Name Dates [employer] [phone] [employer] self FRANCISC [id number] [facility] [address] [facility] [place] [facility] [id number] [phone] MEDICAID self FRANCISC [id number] [place] [id number] [facility] [address] [facility] [id number]
--- NOTE | 2022-07-04 00:10 | ED.NEUROSD ---
HPI - Neuro Symptoms/Deficit General Chief Complaint: Stroke Stated Complaint: Stroke Alert Time Seen by Provider: 07/03/22 23:34 Source: patient and EMS Mode of arrival: EMS Limitations: no limitations History of Present Illness HPI Narrative: Patient has history of fibromyalgia ,arthritis ,depression ,anxiety, hypertension took a lorazepam 1 mg and other p.m. medications noticed around 1999 feels tongue is heavy and left arm and left leg tingling no weakness noticed by the time patient came to the ER tingling in the left leg was better speech was normal normal comprehension and articulation no headache no nausea no vomiting no chest pain . Related Data Home Medications Medication Instructions Recorded Confirmed aspirin 81 mg chewable tablet 1 tab PO DAILY 07/04/20 12/18/21 atorvastatin 40 mg tablet mg PO 07/04/20 12/18/21 cholecalciferol (vitamin D3) 50 50 mcg PO DAILY 07/04/20 12/18/21 mcg (2,000 unit) capsule hydrochlorothiazide 25 mg tablet 25 mg PO DAILY 07/04/20 12/18/21 lorazepam 1 mg tablet 1 mg PO BID PRN anxiety 07/04/20 12/18/21 losartan 100 mg tablet 100 mg PO DAILY 07/04/20 12/18/21 metformin 500 mg tablet,extended 500 mg PO DAILY 07/04/20 12/18/21 release 24 hr metoprolol tartrate 50 mg tablet 50 mg PO BID 07/04/20 12/18/21 ranitidine HCl 150 mg tablet 150 mg PO BID PRN gas 07/04/20 12/18/21 omeprazole 20 mg capsule,delayed 20 mg PO DAILY 12/17/21 12/18/21 release tizanidine 4 mg tablet 4 mg PO BEDTIME 12/17/21 12/18/21 Previous Rx's Medication Instructions Recorded amoxicillin 875 mg-potassium 1 tab PO BID #20 tabs 01/08/21 clavulanate 125 mg tablet (Augmentin) cyclobenzaprine 10 mg tablet 10 mg PO TID PRN pain #18 tabs 02/19/21 naproxen 500 mg tablet 500 mg PO BID PRN pain #20 tabs 02/19/21 amlodipine 10 mg tablet 10 mg PO DAILY 30 days #30 tabs 03/18/21 cyclobenzaprine 10 mg tablet 10 mg PO Q8H PRN Muscle spasm #14 03/03/22 tabs docusate sodium 100 mg capsule 100 mg PO BID PRN Constipation #14 03/03/22 (Colace) caps naproxen 500 mg tablet 500 mg PO BID PRN pain #14 tabs 03/03/22 ibuprofen 600 mg tablet 600 mg PO Q8H PRN pain #14 tabs 05/05/22 tramadol 50 mg tablet 50 mg PO BID PRN severe pain 05/05/22 (scale score 7-10) #6 tabs Allergies Allergy/AdvReac Type Severity Reaction Status Date / Time hydrocodone [HYDROCODONE] Allergy Unknown UNKNOWN Verified 12/17/21 14:23 levofloxacin [LEVOFLOXACIN] Allergy Unknown Rash Verified 06/18/22 09:19 metronidazole [METRONIDAZOLE] Allergy Unknown UNK Verified 12/17/21 14:23 promethazine [PROMETHAZINE] Allergy Unknown Rash Verified 06/18/22 09:19 Codeine Allergy Unknown swelling/ Uncoded 12/17/21 14:23 itching/ hives dye contrast Allergy Unknown red skin Uncoded 12/17/21 14:23 Hydrocodone-Acetaminophen Allergy Unknown rash Uncoded 12/17/21 14:23 Review of Systems Review of Systems: Yes all other systems are reviewed and are negative PMFSH Past Medical History Medical History Diverticulitis Hypertension Surgical History H/O section Family History Family History Father No problems noted. Mother CVD (cardiovascular disease) Social History Social History Alcohol intake: never Patient Tobacco Use Status: Never used Tobacco Use of substances other than those prescribed or required for medical reasons: No Advance Directives: No Advance Directives Information Provided: Yes Physical Exam Vital Signs: Vital Signs: Last Vital Signs Temp 98.1 F 07/04/22 04:00 Pulse 86 07/04/22 06:00 Resp 16 07/04/22 06:00 BP 142/74 H 07/04/22 06:00 Pulse Ox 96 07/04/22 06:00 O2 Del Method 07/04/22 06:00 BMI result Body Mass Index 29.9 Appearance: Alert. Oriented X3. No acute distress. Eyes: PERRLA, No Nystagmus ENT: Pharynx normal. Oral Mucosa moist Neck: Normal inspection. Neck supple. CVS: Normal heart rate and rhythm. Pulses normal. Respiratory: No respiratory distress. Equal air entry bilateral, no wheezing/rales/rhonchi Abdomen: Soft and nontender. Bowel sounds are present, no mass palpable, no CVA tenderness Skin: Skin warm and dry. Normal skin color. Normal skin turgor. Extremities: No lower extremity edema. No calf tenderness Neuro: Oriented X 3. No motor deficit. No sensory deficit.No cerebellar signs , cranial nerves II-XII intact NIHSS score 0 MDM - Neuro Symptoms/Deficit MDM Narrative Medical decision making narrative: Patient nonspecific numbness no focal deficit CT head negative patient took lorazepam prior to that likely with history of fibromyalgia likely the cause patient back to normal discharge patient home patient on aspirin which will continue Differential Diagnosis Differential diagnosis: Likely peripheral neuropathy and cerebrovascular accident Medical Records Attestation: I reviewed the patient's medical records. Lab Data Attestation: I reviewed the patient's lab results. Result diagrams: 07/04/22 00:08 07/04/22 00:08 Labs: Lab Results 07/03/22 07/04/22 07/04/22 Range/Units 23:57 00:03 00:08 WBC 8.2 (4.8-10.8) X10*3/uL RBC 3.95 L (4.20-5.50) X10*6/uL Hgb 12.2 (12.0-16.0) g/dl Hct 35.3 L (37.0-47.0) % MCV 89.4 (80.0-98.0) fL MCH 30.9 (27.0-33.0) pg MCHC 34.6 (31.0-35.0) g/dl RDW 12.4 (11.0-16.0) % Plt Count 219 (160-400) X10*3/uL MPV 9.9 (9.4-12.3) fL Immature Gran % (Auto) 0.2 (0.0-0.4) % Neut % (Auto) 75.9 H (45-73) % Lymph % (Auto) 13.9 L (20-40) % Sherman % (Auto) 7.9 (2-11) % Eos % (Auto) 1.6 (0-4) % Baso % (Auto) 0.5 (0-2) % Lymph # (Auto) 1.1 L (1.2-4.9) X10*3/uL Sherman # (Auto) 0.7 (0.1-1.2) X10*3/uL Eos # (Auto) 0.1 (0.0-0.4) X10*3/uL Baso # (Auto) 0.0 (0.0-0.2) X10*3/uL Abs Immat Gran (auto) 0.02 (0.00-0.03) X10*3/uL Absolute Neuts (auto) 6.2 (2.0-8.3) x10*3/uL Absolute Nucleated RBC 0.000 (0.0-0.012) X10*3/uL Nucleated RBC % (auto) 0.0 (0.0-0.2) /100WBC Sodium (135-145) mmol/L Potassium (3.3-5.1) mmol/L Chloride (96-108) mmol/L Carbon Dioxide (22-29) mmol/L Anion Gap (12-20) BUN (9-16) mg/dL Creatinine (0.5-1.4) mg/dL Estim Creat Clear Calc Estimated GFR POC Glucose 160 H (60-115) mg/dL Random Glucose (60-115) mg/dL Calcium (8.4-10.2) mg/dL Magnesium (1.6-2.6) mg/dL Total Bilirubin (0.0-1.0) mg/dL AST (5-31) U/L ALT (0-31) U/L Alkaline Phosphatase (39-117) U/L Total Protein (6.5-8.0) g/dL Albumin (3.5-5.0) g/dL COVID-19 (CON[facility]) Negative (Negative) COVID-19 Clin Com See Note 07/04/22 Range/Units 00:08 WBC (4.8-10.8) X10*3/uL RBC (4.20-5.50) X10*6/uL Hgb (12.0-16.0) g/dl Hct (37.0-47.0) % MCV (80.0-98.0) fL MCH (27.0-33.0) pg MCHC (31.0-35.0) g/dl RDW (11.0-16.0) % Plt Count (160-400) X10*3/uL MPV (9.4-12.3) fL Immature Gran % (Auto) (0.0-0.4) % Neut % (Auto) (45-73) % Lymph % (Auto) (20-40) % Sherman % (Auto) (2-11) % Eos % (Auto) (0-4) % Baso % (Auto) (0-2) % Lymph # (Auto) (1.2-4.9) X10*3/uL Sherman # (Auto) (0.1-1.2) X10*3/uL Eos # (Auto) (0.0-0.4) X10*3/uL Baso # (Auto) (0.0-0.2) X10*3/uL Abs Immat Gran (auto) (0.00-0.03) X10*3/uL Absolute Neuts (auto) (2.0-8.3) x10*3/uL Absolute Nucleated RBC (0.0-0.012) X10*3/uL Nucleated RBC % (auto) (0.0-0.2) /100WBC Sodium 137 (135-145) mmol/L Potassium 3.3 (3.3-5.1) mmol/L Chloride 98 (96-108) mmol/L Carbon Dioxide 28 (22-29) mmol/L Anion Gap 14 (12-20) BUN 17 H (9-16) mg/dL Creatinine 0.76 (0.5-1.4) mg/dL Estim Creat Clear Calc TNP Estimated GFR > 60 POC Glucose (60-115) mg/dL Random Glucose 169 H (60-115) mg/dL Calcium 9.2 D (8.4-10.2) mg/dL Magnesium 1.7 (1.6-2.6) mg/dL Total Bilirubin 0.5 (0.0-1.0) mg/dL AST 18 (5-31) U/L ALT 21 (0-31) U/L Alkaline Phosphatase 53 (39-117) U/L Total Protein 6.4 L (6.5-8.0) g/dL Albumin 4.2 (3.5-5.0) g/dL COVID-19 ([facility]) (Negative) COVID-19 Clin Com ECG Data Attestation: I personally reviewed and interpreted this ECG as follows: Interpretation: Normal sinus rhythm heart rate 72 beats per minute PACs no acute ST-T changes no acute ischemia NIH Stroke Scale Internal: Initial- Upon Arrival Time: 23:30 Level of Consciousness: Alert Level of Consciousness Questions: Answers both questions correctly Level of Consciousness Commands: Performs both tasks correctly Visual: No visual loss Facial Palsy: Normal Motor Arm (Right): No drift Motor Arm (Left): No drift Motor Leg (Right): No drift Motor Leg (Left): No drift Limb Ataxia: Absent Sensory: Normal Best Language: No aphasia Dysarthia: Normal Extinction and Inattention: No abnormality Discharge Plan Discharge Clinical Impression: Fibromyalgia, Paresthesia Patient Disposition: Home, Self-Care Instructions: Fibromyalgia (ED), Paresthesia (ED) Additional Instructions: Follow with PCP if any concern paresthesia is likely from the fibromyalgia/pinched nerve Prescriptions: No Action amlodipine 10 mg tablet 10 mg PO DAILY 30 Days Qty: 30 1RF Rx Instructions: Please call and schedule a cardiology appointment - overdue naproxen 500 mg tablet 500 mg PO BID PRN (Reason: pain) Qty: 20 0RF cyclobenzaprine 10 mg tablet 10 mg PO TID PRN (Reason: pain) Qty: 18 0RF Rx Instructions: El efecto secundario es la somnolencia. No lo tome en el trabajo o mientras conduce. amoxicillin-pot clavulanate [Augmentin] 875-125 mg tablet 1 tab PO BID Qty: 20 0RF naproxen 500 mg tablet 500 mg PO BID PRN (Reason: pain) Qty: 14 0RF cyclobenzaprine 10 mg tablet 10 mg PO Q8H PRN (Reason: Muscle spasm) Qty: 14 0RF docusate sodium [Colace] 100 mg capsule 100 mg PO BID PRN (Reason: Constipation) Qty: 14 0RF tramadol 50 mg tablet 50 mg PO BID PRN (Reason: severe pain (scale score 7-10)) Qty: 6 0RF Rx Instructions: partial fill upon patient request ibuprofen 600 mg tablet 600 mg PO Q8H PRN (Reason: pain) Qty: 14 0RF ranitidine HCl 150 mg tablet 150 mg PO BID PRN (Reason: gas) metformin 500 mg tablet extended release 24 hr 500 mg PO DAILY metoprolol tartrate 50 mg tablet 50 mg PO BID losartan 100 mg tablet 100 mg PO DAILY lorazepam 1 mg tablet 1 mg PO BID PRN (Reason: anxiety) cholecalciferol (vitamin D3) 50 mcg (2,000 unit) capsule 50 mcg PO DAILY atorvastatin 40 mg tablet PO hydrochlorothiazide 25 mg tablet 25 mg PO DAILY aspirin 81 mg tablet,chewable 1 tab PO DAILY tizanidine 4 mg tablet 4 mg PO BEDTIME omeprazole 20 mg capsule,delayed release(DR/EC) 20 mg PO DAILY Print Language: Indonesian
[2022-07-04 00:12] LABS: MANUAL DIFF FLAG NO
--- NOTE | 2022-07-04 00:12 | PC.NURSE ---
COVID swab and labs collected and sent as ordered
[2022-07-04 00:13] LABS: Basophils Percent Auto 0.5 % (0-2); Eosinophils Absolute Auto 0.1 X10*3/uL (0.0-0.4); Eosinophils Percent Auto 1.6 % (0-4); Hematocrit 35.3 % (37.0-47.0); Hemoglobin 12.2 g/dl (12.0-16.0); Imm Gran Abs Auto 0.02 X10*3/uL (0.00-0.03); Imm Gran Pct Auto 0.2 % (0.0-0.4); Lymphocytes Absolute Auto 1.1 X10*3/uL (1.2-4.9); Lymphocytes Percent Auto 13.9 % (20-40); Mean Corpuscular HGB Conc 34.6 g/dl (31.0-35.0); Mean Corpuscular Hemoglobin 30.9 pg (27.0-33.0); Mean Corpuscular Volume 89.4 fL (80.0-98.0); Mean Platelet Volume 9.9 fL (9.4-12.3); Monocytes Absolute Auto 0.7 X10*3/uL (0.1-1.2); Monocytes Percent Auto 7.9 % (2-11); Neutrophils Absolute Auto 6.2 x10*3/uL (2.0-8.3); Neutrophils Percent Auto 75.9 % (45-73); Platelet Count 219 X10*3/uL (160-400); Red Blood Count 3.95 X10*6/uL (4.20-5.50); Red Cell Distribution Width 12.4 % (11.0-16.0); White Blood Count 8.2 X10*3/uL (4.8-10.8)
[2022-07-04 00:14] VITALS: BP 157/73; PULSE 76; RESP 20; TEMP 36.7; O2SAT 97
[2022-07-04 00:27] LABS: COVID-19 Test Negative (Negative)
[2022-07-04 00:30] LABS: Alanine Aminotransferase 21 U/L (0-31); Albumin Level 4.2 g/dL (3.5-5.0); Alkaline Phosphatase 53 U/L (39-117); Anion Gap 14 (12-20); Aspartate Amino Transferase 18 U/L (5-31); Bilirubin Total 0.5 mg/dL (0.0-1.0); Blood Urea Nitrogen 17 mg/dL (9-16); Calcium 9.2 mg/dL (8.4-10.2); Carbon Dioxide 28 mmol/L (22-29); Chloride 98 mmol/L (96-108); Estimated Glomerular Filt Rate > 60; Glucose Random 169 mg/dL (60-115); Magnesium 1.7 mg/dL (1.6-2.6); Potassium 3.3 mmol/L (3.3-5.1); Sodium 137 mmol/L (135-145); Total Protein 6.4 g/dL (6.5-8.0)
[2022-07-04 04:00] VITALS: BP 119/61; PULSE 78; RESP 16; TEMP 36.7; O2SAT 97
--- NOTE | 2022-07-04 05:53 | PC.NURSE ---
Awaiting machine overhauler for discharge
[2022-07-04 06:00] VITALS: BP 142/74; PULSE 86; RESP 16; O2SAT 96
[2022-07-04 06:55] LABS: Glucose, Whole Blood 152 mg/dL (60-115)
== END 2022-07-04 07:44 | disposition home or self-care (01) ==
PROVIDERS: Emergency Provider Internal Medicine
DX: R42 Dizziness and giddiness (principal); M79.7 Fibromyalgia; R20.2 Paresthesia of skin; Z20.822 Contact with and (suspected) exposure to COVID-19; Z79.899 Other long term (current) drug therapy
CPT/HCPCS: 70450; 80053; 82947; 83735; 85025; 87635; 93005; 99284; 99285

== ENCOUNTER → 2022-07-06 13:01 | Outpatient (BNVA) | payer OTHER, SELFPAY | PROVIDERS: PCP Family Medicine; Referring Provider Family Medicine; Visit Provider Internal Medicine Cardiovascular Disease | DX: R00.2 Palpitations (principal); G45.9 Transient cerebral ischemic attack, unspecified; I10 Essential (primary) hypertension; R06.02 Shortness of breath | CPT/HCPCS: 99212 ==

== ENCOUNTER → 2022-11-26 14:35 | Outpatient (BNVA) | payer OTHER, SELFPAY | PROVIDERS: PCP Family Medicine; Referring Provider Family Medicine; Visit Provider Internal Medicine Cardiovascular Disease | DX: R07.9 Chest pain, unspecified (principal); I10 Essential (primary) hypertension; M79.7 Fibromyalgia; R20.2 Paresthesia of skin | CPT/HCPCS: 99212 ==

== ENCOUNTER → 2022-12-31 08:36 | Outpatient (REF) | payer OTHER, SELFPAY ==
--- NOTE | ~2022-12-31 | NM_ITS ---
Lexiscan Myocardial perfusion study Indication: Chest pain, assess for coronary disease and ischemia Technique: The patient was brought in for a Lexiscan perfusion study on 12/31/2022 and was injected 0.4 mg of Lexiscan intravenously. Within a minute of this injection 25 mCi of sestamibi was given intravenously. Images were obtained using the SPECT gamma camera interlaced with the gating device. Images were obtained in supine position. Resting perfusion study was performed on 01/06/2023. Patient was administered 25 mCi of sestamibi intravenously at rest. Images were then obtained in supine position. Images were processed with the software and compared side to side in short axis, horizontal long axis and vertical long axis views. Total DLP 162mGy-cm. Findings: Raw acquisition reviewed. The stress perfusion study showed diminished tracer uptake along the mid to distal inferolateral wall. There is significant improvement with CT attenuation correction suggestive of diaphragmatic attenuation artifact. The gated study shows normal LV systolic function with calculated LVEF of 65%. LV cavity is normal in size. The gated study shows reduced contractility in the distal part of inferolateral wall. Resting study shows tracer uptake in the distal part of inferolateral wall. There is improvement with CT attenuation correction suggestive of diaphragmatic attenuation artifact. Gating at rest reveals normal wall motion with ejection fraction at 74%. The findings are consistent with mid to distal inferolateral defect with reversible and fixed components but normalizing with CT attenuation correction. Probably diaphragmatic attenuation artifact, NM/NM cardiolite stress test Impression: 1. Myocardial perfusion imaging study shows probably normal perfusion. Suspected diaphragmatic attenuation artifact causing inferolateral perfusion defect. Less likely circumflex/RCA territory ischemia/infarct. 2. Gated LVEF is 62% during stress and 74% during rest. 3. Transient ischemic dilatation not present. EKG component of the test reported separately.
--- NOTE | 2022-12-31 08:40 | CA_ITS ---
Acquisition Time: 2022-12-31 09:18:51 Total Exercise Time: 00:02:00 Test Indications: CP, SOB Medications: SEE H Protocol: LEXISCAN Max HR: 098 BPM 65% of Pred: 149 BPM Max BP: 132/074 mmHG Max Work Load: 1.0 METS Pharmacoloigcal stress test with Lexiscan injection while sitting and kicking her legs, without anginal symptoms, without arrythmia, with normotensive response to injection, without EKG changes. Aminophylline 75mg IVP given to reverse Lexiscan. Nuclear images pending. Test reviewed with Dr. Karimi. Note: Patient ambulated with cane and reported inability to walk on treadmill. Test order changed from exercise nuclear to pharmacological nuclear stress test. Referred By: Hieu Karimi Overread By: MATT ORTA
== END ==
LOC: HO.CARD 08:36
PROVIDERS: PCP Family Medicine; Visit Provider Internal Medicine Cardiovascular Disease
DX: R07.89 Other chest pain (principal)
CPT/HCPCS: 78452; 93017; A9500; J0280; J2785

== ENCOUNTER → 2023-01-18 15:41 | Outpatient (BNVA) | payer OTHER, SELFPAY | PROVIDERS: PCP Family Medicine; Referring Provider Family Medicine; Visit Provider Nurse Practitioner Family | DX: R07.9 Chest pain, unspecified (principal); I10 Essential (primary) hypertension; M79.7 Fibromyalgia; G45.9 Transient cerebral ischemic attack, unspecified | CPT/HCPCS: 99212 ==

== ENCOUNTER 2023-05-07 09:24 | Outpatient (REF) | payer OTHER, SELFPAY ==
[2023-05-07 12:17] LABS: Anion Gap 14 (12-20); Blood Urea Nitrogen 15 mg/dL (9-16); Calcium 9.9 mg/dL (8.4-10.2); Carbon Dioxide 28 mmol/L (22-29); Chloride 97 mmol/L (96-108); Estimated Glomerular Filt Rate > 60; Glucose Random 126 mg/dL (60-115); Potassium 3.8 mmol/L (3.3-5.1); Sodium 135 mmol/L (135-145)
== END 2023-05-07 09:25 | disposition home or self-care (01) ==
LOC: HO.HHCL 09:24
PROVIDERS: Visit Provider Family Medicine
DX: I10 Essential (primary) hypertension (principal)
CPT/HCPCS: 36415; 80048

== ENCOUNTER 2023-06-16 09:18 | Outpatient (REF) | payer OTHER, SELFPAY ==
[2023-06-16 12:19] LABS: Alanine Aminotransferase 25 U/L (0-31); Albumin Level 4.3 g/dL (3.5-5.0); Alkaline Phosphatase 47 U/L (39-117); Anion Gap 15 (12-20); Aspartate Amino Transferase 20 U/L (5-31); Bilirubin Total 0.6 mg/dL (0.0-1.0); Blood Urea Nitrogen 11 mg/dL (9-16); Calcium 9.5 mg/dL (8.4-10.2); Carbon Dioxide 26 mmol/L (22-29); Chloride 100 mmol/L (96-108); Estimated Glomerular Filt Rate > 60; Glucose Random 187 mg/dL (60-115); Potassium 3.5 mmol/L (3.3-5.1); Sodium 137 mmol/L (135-145); Total Protein 6.8 g/dL (6.5-8.0)
[2023-06-16 12:36] LABS: TSH reflex Free T4 1.46 uIU/mL (0.32-4.0)
== END 2023-06-16 09:19 | disposition home or self-care (01) ==
LOC: HO.HHCL 09:18
PROVIDERS: Visit Provider Family Medicine
DX: E11.9 Type 2 diabetes mellitus without complications (principal)
CPT/HCPCS: 36415; 80053; 80061; 82043; 82570; 82607; 82746; 84443

== ENCOUNTER 2023-06-23 09:41 | Outpatient (AMB) | payer OTHER, SELFPAY ==
[2023-06-23 09:49] VITALS: BP 140/80; BMI 28.8
--- NOTE | 2023-06-23 09:49 | A.OFFVIS_ITS ---
Intake Vital Signs 06/23/23 09:49 Height 5 ft 4 in Weight 167 lb 8.821 oz BMI 28.8 BP 140/80 H Blood Pressure Location Lt brachial Position Sitting Intake Visit Reasons: follow up Intake Note: follow-up with ekg feeling good Industrial Engineering Technician Required: Yes Industrial Engineering Technician Name: Elroy yanez Renewable Energy Consultant: Renewable Energy Consultant Present Accompanied by: Family/Other Allergies hydrocodone [HYDROCODONE] Allergy (Unknown, Verified 01/18/23 15:49) UNKNOWN levofloxacin [LEVOFLOXACIN] Allergy (Unknown, Verified 01/18/23 15:49) Rash metronidazole [METRONIDAZOLE] Allergy (Unknown, Verified 01/18/23 15:49) UNK promethazine [PROMETHAZINE] Allergy (Unknown, Verified 01/18/23 15:49) Rash Codeine Allergy (Unknown, Uncoded 11/26/22 14:53) swelling/ itching/ hives dye contrast Allergy (Unknown, Uncoded 11/26/22 14:53) red skin Hydrocodone-Acetaminophen Allergy (Unknown, Uncoded 11/26/22 14:53) rash Medication List - Last Reconciled 06/23/23 by Hieu Karimi MD atorvastatin 40 mg PO DAILY chlorthalidone 25 mg PO DAILY cholecalciferol (vitamin D3) 50 mcg PO DAILY clopidogrel 75 mg PO DAILY cyanocobalamin (vitamin B-12) 500 mcg PO DAILY cyclobenzaprine 10 mg PO TID PRN lorazepam 1 mg PO BID PRN losartan 100 mg PO DAILY metformin ER 500 mg PO DAILY metoprolol tartrate 50 mg PO BID omeprazole 20 mg PO DAILY pantoprazole (Protonix) 40 mg PO DAILY HPI HPI Comments History of Present Illness Details Pleasant 72-year-old lady here for follow-up. She is accompa nikia by her DAIRY FEED WORKER who acted as the translator and interpreter. Patient was originally seen for dyspnea and palpitations. She underwent echocardiography which showed grade 1 diastolic dysfunction but did not show any significant valvular issues or LV or RV dysfunction. She underwent cardiac event monitoring which was unremarkable and did not show any significant arrhythmia. She returns for follow-up today. She was in the emergency department on 07/04/2022 with left-sided paresthesias as well as numbness of her tongue. She was unable to speak. She was sent home with a diagnosis of fibromyalgia and paresthesia. She is saying she has been doing well since then. She has been taking baby aspirin before and no changes in medications were made. Denying any chest discomfort or palpitations. Blood pressure control is good currently. Her aspirin was stopped and she was started on Plavix. Today she returns for follow-up and is complaining of chest discomfort which has been happening for the last few weeks. This happens when she does activities and improves that she rest. Pattern is concerning for angina. Her blood pressure control is good. Do not have any ischemic evaluation recently. 06/23/23: She returns for follow-up. S he is denying any chest discomfort. She previously had Lexiscan performed because she could not exercise on treadmill. Lexiscan showed probably normal perfusion with suspected diaphragmatic attenuation artifact causing inferolateral perfusion defect. This was felt to be more likely to be artifact than ischemia. As mentioned she is denying any symptoms on follow-up. Her blood pressure is elevated and had a discussion with her that we should titrate medications or add amlodipine 2.5 mg once a day. She is saying that her blood pressure is elevated due to anxiety and whenever she gets it checked at her pharmacy does normal. I had long discussion with her and we have decided to keep a log of blood pressure for 2 weeks and bring it on follow-up next time. [facility] Medical History Diverticulitis Hypertension Surgical History H/O section Family History Father No problems noted. Mother CVD (cardiovascular disease) Social History Alcohol intake: never Patient Tobacco Use Status: Never used Tobacco Review of Systems Const Denies chills, Denies fatigue, Denies fever(s), Denies frequent falls, Denies weakness, Denies weight gain and Denies weight loss ENT Denies dizziness Card Denies chest pain, Denies leg edema, Denies lightheadedness, Denies palpitations, Denies dyspnea, Denies dyspnea on exertion, Denies orthopnea and Denies other (loss of consciousness) Resp Denies cough, Denies dyspnea and Denies dyspnea on exertion GI Denies hematochezia and Denies change in stool character Musc Denies abnormal gait, Denies muscle weakness, Denies numbness, Denies radiating pain into limb and Denies tingling Neuro Denies abnormal gait, Denies dizziness, Denies frequent falls, Denies numbness, Denies tingling and Denies weakness Endo Denies fatigue and Denies palpitations Physical Exam Vital Signs: Last Vital Signs BP 140/80 H 06/23/23 09:49 BMI result Body Mass Index 28.8 GENERAL APPEARANCE: in no acute distress, well developed, well nourished. NECK/THYROID: no carotid bruit, no jugular venous distention. SKIN: normal, no rashes. HEART: no murmurs, regular rate and rhythm, S1, S2 normal. LUNGS: clear to auscultation bilaterally. ABDOMEN: normal, bowel sounds present, soft, nontender, nondistended. EXTREMITIES: no edema. PERIPHERAL PULSES: equal. NEUROLOGIC: nonfocal, motor strength normal upper and lower extremities, sensory exam intact. PSYCH: mood/affect full range. Office Procedures EKG Details: Sinus rhythm 76 beats per minute, normal axis, normal ECG, QTC 441 milliseconds. [id number], Complete Assessment & Plan Assessment & Plan (1) Chest pain: Code(s): R07.9 - Chest pain, unspecified (2) Hypertension: Code(s): I10 - Essential (primary) hypertension Plan [age] year female who is here for follow-up. She was complaining of chest pain previously and had Lexiscan performed. This showed inferolateral perfusion defect which was felt to be at admission artifact from diaphragm. On follow-up she is denying chest discomfort. I think currently we do not need to further testing. It appears she also has a contrast dye allergy. Her blood pressure is elevated but she is saying this is due to anxiety. Her blood pressure previously was also elevated on 01/18/2023 visit. I have advised her to start low-dose amlodipine. She is reluctant and after long discussion we have decided to give a blood pressure log at home and bring it next time. She will follow-up with us in 2-3 months. Coding Level of Care Code Est Pt Level 3 (54542) Diagnoses Chest pain R07.9 Hypertension I10 CPT Codes EKG - CPT: 64000-[id number], Complete ([id number])
== END 2023-06-23 10:39 | disposition home or self-care (01) ==
PROVIDERS: PCP Family Medicine; Visit Provider Internal Medicine Cardiovascular Disease
DX: R07.9 Chest pain, unspecified (principal); I10 Essential (primary) hypertension
CPT/HCPCS: 93010; 99213

== ENCOUNTER → 2023-06-23 09:41 | Outpatient (BNVA) | payer OTHER, SELFPAY | PROVIDERS: PCP Family Medicine; Visit Provider Internal Medicine Cardiovascular Disease | DX: R07.9 Chest pain, unspecified (principal); I10 Essential (primary) hypertension | CPT/HCPCS: 93005; 99212 ==

== ENCOUNTER 2023-07-14 08:56 | Outpatient (REF) | payer OTHER, SELFPAY ==
--- NOTE | ~2023-07-14 | US_ITS ---
EXAMINATION: US ABDOMEN COMPLETE CLINICAL INFORMATION: Hepatic cyst, left adrenal cyst, hydronephrosis. COMPARISON: CT abdomen and pelvis without contrast 03/03/2022. Ultrasound abdomen complete 01/22/2022. TECHNIQUE: Real-time imaging of the abdominal viscera. FINDINGS: PANCREAS: Mostly obscured. ABDOMINAL AORTA: The proximal, mid, and distal segments are normal in caliber. INFERIOR VENA CAVA: Visualized portions are normal. LIVER: The liver is normal in size. The liver contour is normal. There is diffuse increased liver parenchymal echogenicity, consistent with hepatic steatosis. Stable left hepatic cyst measures 1.2 x 1.2 x 1.2 cm. There is no intrahepatic biliary duct dilatation seen. GALLBLADDER: Surgically absent. COMMON BILE DUCT: Normal in caliber measuring 0.6 cm in diameter. RIGHT KIDNEY: No hydronephrosis. No renal calculi or focal parenchymal lesions. The kidney measures 9.5 cm in maximum dimension. LEFT KIDNEY: Parapelvic cyst measures 2.9 x 2.7 x 3.3 cm. No further imaging follow-up is needed. No hydronephrosis or renal calculi. The kidney measures 11.5 cm in maximum dimension. SPLEEN: The spleen measures 8.6 cm in maximum dimension. FREE FLUID: None. US/US abdomen complete IMPRESSION: Hepatic steatosis. No hydronephrosis.
== END 2023-07-14 08:57 | disposition home or self-care (01) ==
LOC: HO.US 08:56
PROVIDERS: PCP Family Medicine; Visit Provider Family Medicine
DX: K76.89 Other specified diseases of liver (principal)
CPT/HCPCS: 76700

== ENCOUNTER 2023-10-07 09:12 | Outpatient (AMB) | payer OTHER, SELFPAY ==
--- NOTE | 2023-10-07 09:13 | MHC.OFFVIS ---
Intake Vital Signs 10/07/23 09:14 Height 5 ft 4 in Weight 172 lb 13.478 oz BMI 29.7 BP 140/82 H Blood Pressure Location Lt brachial Position Sitting Pulse 80 Pulse Source Pulse Oximeter Intake Visit Reasons: 2 month f/u KM Dry Cans Operator Required: Yes Allergies hydrocodone [HYDROCODONE] Allergy (Unknown, Verified 10/07/23 09:19) UNKNOWN levofloxacin [LEVOFLOXACIN] Allergy (Unknown, Verified 10/07/23 09:19) Rash metronidazole [METRONIDAZOLE] Allergy (Unknown, Verified 10/07/23 09:19) UNK promethazine [PROMETHAZINE] Allergy (Unknown, Verified 10/07/23 09:19) Rash Codeine Allergy (Unknown, Uncoded 11/26/22 14:53) swelling/ itching/ hives dye contrast Allergy (Unknown, Uncoded 11/26/22 14:53) red skin Hydrocodone-Acetaminophen Allergy (Unknown, Uncoded 11/26/22 14:53) rash Medication List - Last Reconciled 10/07/23 by ALISIA Lynn atorvastatin 40 mg PO DAILY chlorthalidone 25 mg PO DAILY cholecalciferol (vitamin D3) 50 mcg PO DAILY clopidogrel 75 mg PO DAILY cyanocobalamin (vitamin B-12) 500 mcg PO DAILY cyclobenzaprine 10 mg PO TID PRN lorazepam 1 mg PO BID PRN losartan 100 mg PO DAILY metformin ER 500 mg PO DAILY metoprolol tartrate 50 mg PO BID omeprazole 20 mg PO DAILY pantoprazole (Protonix) 40 mg PO DAILY HPI 2 month f/u KM HPI Details Che is a 73-year-old female past medical history of hypertension, diabetes, fibromyalgia, possible TIA in the past who was previously evaluated for shortness of breath and heart palpitations without significant findings. Last spring she reported chest discomfort and underwent nuclear stress test which was normal. On last visit she had elevated blood pressure readings and now presents for follow-up. Today she reports that she does notice intermittent lightheadedness at times. She has not had any presyncope, syncope, falls. She has been checking her blood pressure at home but does not recall the readings. No recent chest discomfort at rest or with activity. She does have some shortness of breath with activity which is not new or worsening. No PND, orthopnea. She does get trace ankle edema. She takes all meds as directed. Family member is present. Certified bilingual interpreter used. [facility] Medical History Diverticulitis Hypertension Surgical History H/O section Family History Father No problems noted. Mother CVD (cardiovascular disease) Social History Alcohol intake: never Patient Tobacco Use Status: Never used Tobacco Review of Systems Const All systems reviewed & are unremarkable except as noted in HPI and below ENT Reports dizziness Card Denies chest pain, Denies chest pain at rest, Denies chest pain with activity, Denies rapid heart rate, Denies pedal edema, Denies edema, Denies leg edema, Denies lightheadedness, Denies palpitations, Denies dyspnea, Denies dyspnea on exertion and Denies orthopnea Resp Denies cough, Denies dyspnea and Denies dyspnea on exertion GI Denies hematochezia and Denies change in stool character Musc Denies abnormal gait, Denies limited range of motion, Denies muscle cramps, Denies muscle weakness, Denies numbness, Denies radiating pain into limb, Denies stiffness and Denies tingling Neuro Denies abnormal gait, Reports dizziness, Denies numbness and Denies tingling Endo Denies palpitations Physical Exam Vital Signs: Last Vital Signs Pulse 80 10/07/23 09:14 BP 140/82 H 10/07/23 09:14 BMI result Body Mass Index 29.7 Const General: cooperative, healthy appearing, comfortable and no acute distress Orientation/consciousness: patient oriented x3 Neck Neck: Yes normal visual inspection and Yes no JVD Resp Effort & Inspection: normal respiratory effort Auscultation: clear to auscultation bilaterally, no crackles, no rales, no rhonchi and no wheezes Cardio Jugular venous distension: no JVD Rate: regular rate Rhythm: regular rhythm Heart sounds: S1 normal heart sound present, S2 normal heart sound present, no murmurs and no rubs Neuro General: patient oriented x3 Extrem General: Yes normal to inspection Psych Appearance: grossly normal Mental Status: mental status grossly normal Speech and movement: Normal speech and movement present Assessment & Plan Assessment & Plan (1) Chest pain: Code(s): R07.9 - Chest pain, unspecified Plan: Prior reports of chest discomfort. Cardiac risk factors of hypertension, diabetes, age, mild obesity. Nuclear stress test done on 12/31/2022 showed probable normal, inferior lateral defect most likely related to diaphragm attenuation, less likely to be circumflex or RCA ischemia. A diagnostic cardiac catheterization was considered on her however she declined. At this time she is denying any concerning chest discomfort. She does have some shortness of breath with activity which is unchanged recently. Spent time reviewing signs and symptoms of angina in detail. At this time will have her continue on metoprolol and atorvastatin. She is on Plavix due to prior concerns for TIA. Cardiology follow-up in 6 months, sooner if needed (2) TIA (transient ischemic attack): Code(s): G45.9 - Transient cerebral ischemic attack, unspecified Plan: ER visit 07/04/2022 with report of tingling in her left arm and left leg and numbness along the left side of her tongue. They documented no weakness or speech disturbance. CT scan of the head at that time showed no acute findings. She believe she has followed up with Neurology since then. She had previously been on aspirin and is now on Plavix. She has had no recurrent neurological events. Pulse is very regular on examination. She denies issues with heart palpitations at this visit. (3) Dizziness: Code(s): R42 - Dizziness and giddiness Plan: Reports of intermittent dizziness, no falls, presyncope, syncope. She has not orthostatic on blood pressure check today. Reviewed need for good hydration, use caution with position changes, especially sitting to standing. If she has ongoing symptoms can further discuss with PCP. (4) Hypertension: Code(s): I10 - Essential (primary) hypertension Plan: Mild elevation today initially, improved on recheck. Has been elevated in the past. She does check home blood pressures but is not able to tell me the numbers. Recheck blood pressure done by me, 112/56 sitting. Current meds include chlorthalidone, losartan and metoprolol. Labs done 06/16/2023 showed potassium 3.5, creatinine 0.76. Continue current meds without change. Plan Time spent on chart review, documentation, interview and assessment Coding Level of Care Code Est Pt Level 4 (94533) Diagnoses Chest pain R07.9 TIA (transient ischemic attack) G45.9 Dizziness R42 Hypertension I10 Time Spent (min) 28
[2023-10-07 09:14] VITALS: BP 140/82; PULSE 80; BMI 29.7
== END 2023-10-07 09:42 | disposition home or self-care (01) ==
PROVIDERS: PCP Family Medicine; Visit Provider Nurse Practitioner Family
DX: R07.9 Chest pain, unspecified (principal); G45.9 Transient cerebral ischemic attack, unspecified; R42 Dizziness and giddiness; I10 Essential (primary) hypertension
CPT/HCPCS: 99214

== ENCOUNTER → 2023-10-07 09:12 | Outpatient (BNVA) | payer OTHER, SELFPAY | PROVIDERS: PCP Family Medicine; Visit Provider Nurse Practitioner Family | DX: R07.9 Chest pain, unspecified (principal); G45.9 Transient cerebral ischemic attack, unspecified; R42 Dizziness and giddiness; I10 Essential (primary) hypertension | CPT/HCPCS: 99212 ==

== ENCOUNTER 2023-11-30 09:50 | Outpatient (REF) | payer OTHER, SELFPAY ==
--- NOTE | ~2023-11-30 | XR_ITS ---
EXAMINATION: XR FINGER, LEFT CLINICAL INFORMATION: Left thumb pain of one week's duration. COMPARISON: None available. TECHNIQUE: Frontal, oblique and lateral views of the left thumb are submitted. FINDINGS: Bony alignment and mineralization are normal. There is a neutral ulnar variance. There is degenerative change of the interphalangeal joint of the thumb, with exuberant peripheral osteophyte formation. In particular, a large exuberant osteophyte is seen at the dorsal aspect of the interphalangeal joint, possibly avulsed. This can be correlated clinically. Mild degenerative change is seen of the second through fifth distal interphalangeal joints and of the third metacarpophalangeal joint. There is mild osteoarthritic change of the first carpometacarpal joint. The proximal and distal carpal rows are intact. No abnormal bone erosion is seen. There is no focal soft tissue swelling, gas or foreign body. XR/XR finger LT min 2V IMPRESSION: There are degenerative changes of the hand and wrist, as detailed. In particular, there are exuberant osteophytes at the interphalangeal joint of the thumb, one particularly pronounced dorsally, which may be avulsed. Please correlate clinically.
== END 2023-11-30 09:51 | disposition home or self-care (01) ==
LOC: HO.HHCX 09:50
PROVIDERS: Visit Provider Family Medicine
DX: M79.645 Pain in left finger(s) (principal); G89.29 Other chronic pain
CPT/HCPCS: 73140

== ENCOUNTER 2024-01-05 14:32 | Outpatient (AMB) | payer OTHER, SELFPAY ==
[2024-01-05 14:38] VITALS: BP 128/8; PULSE 83; O2SAT 97
--- NOTE | 2024-01-05 14:38 | HO.NEPHOV_ITS ---
Vital Signs 01/05/24 14:38 01/05/24 15:00 Height 5 ft 4 in BP 128/8 L 120/80 Blood Pressure Location Rt brachial Lt brachial Position Sitting Left Lateral Pulse 83 Pulse Source Pulse Oximeter Pulse Oximetry (%) 97 Oxygen Delivery Method Room Air Intake Visit Reasons: Hypertension/ Confirmed Application Penetration Tester Required: Yes Application Penetration Tester Name: Debora [id number] Accompanied by: Self / Same As Patient Allergies hydrocodone [HYDROCODONE] Allergy (Unknown, Verified 01/05/24 14:42) UNKNOWN levofloxacin [LEVOFLOXACIN] Allergy (Unknown, Verified 01/05/24 14:42) Rash metronidazole [METRONIDAZOLE] Allergy (Unknown, Verified 01/05/24 14:42) UNK promethazine [PROMETHAZINE] Allergy (Unknown, Verified 01/05/24 14:42) Rash Codeine Allergy (Unknown, Uncoded 11/26/22 14:53) swelling/ itching/ hives dye contrast Allergy (Unknown, Uncoded 11/26/22 14:53) red skin Hydrocodone-Acetaminophen Allergy (Unknown, Uncoded 11/26/22 14:53) rash HPI Comments Details: Che is a pleasant 73-year-old woman with a history of hypertension requiring 3 antihypertensive agents. She has a left adrenal adenoma. She was seen by Dr. Flores in 2020 for the same issue. As per records ,MRI of the abdomen 03/31/2005 showed: MRI of the abdomen is consistent with 1.5 cm left adrenal cortical adenoma probably nonhyperfunctioning adenoma. CT abdomen from 04/18/2007 revealed: 1.5 cm left adrenal mass. She tells me that initially the adenoma was noted in 1995 in [place]. This size has been holding steady, over the past 25 years. It is unclear if she underwent any biochemical workup. Today she has no new complaints. She has generalized body pain which she attributes to fibromyalgia. No shortness of breath. No palpitations. No unexplained sweating. No weight loss or weight gain. No urinary symptoms. All other systems were reviewed [facility] Medical History Diverticulitis Hypertension Surgical History H/O section Family History Father No problems noted. Mother CVD (cardiovascular disease) Social History Alcohol intake: never Patient Tobacco Use Status: Never used Tobacco Physical Exam Vital Signs: Last Vital Signs Pulse 83 01/05/24 14:38 BP 120/80 01/05/24 15:00 Pulse Ox 97 01/05/24 14:38 Oxygen Delivery Method Room Air 01/05/24 14:38 Const General: comfortable Nutritional Appearance: well nourished Orientation/consciousness: patient oriented x3 HEENT Head: No normal to inspection Mouth: moist mucous membranes Neck Neck: Yes supple and Yes no JVD Resp Auscultation: clear to auscultation bilaterally, no rales and rub present Cardio Jugular venous distension: no JVD Palpation: no palpable S3 and no palpable S4 Heart sounds: no rubs GI Palpation (GI): Soft to palpation and nontender Percussion: No Fluid wave present General: Yes no CVA tenderness Back/Spine/Pelvis Back: no CVA tenderness Skin General skin exam: no rashes or lesions noted Neuro General: patient oriented x3 Extrem General: Yes no pedal edema and No clubbing Results Reviewed Nephrology Results: Sodium 137 mmol/L (135-145) 06/16/23 Potassium 3.5 mmol/L (3.3-5.1) 06/16/23 Chloride 100 mmol/L (96-108) 06/16/23 Carbon Dioxide 26 mmol/L (22-29) 06/16/23 BUN 11 mg/dL (9-16) 06/16/23 Creatinine 0.76 mg/dL (0.5-1.4) 06/16/23 Calcium 9.5 mg/dL (8.4-10.2) 06/16/23 Urine Creatinine 190.10 mg/dL 06/16/23 Assessment & Plan Assessment & Plan (1) Hypertension: Code(s): I10 - Essential (primary) hypertension Category: Medical (2) 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 Based on the prior imaging studies it appears that this cyst has been reasonably stable. No biochemical workup has been done from what I can see. The blood pressure is well controlled this time. Renal function is stable. She has no significant alkalosis or hypokalemia. I will order biochemical panel including plasma aldosterone plasma renin activity and catecholamines. If these results remain normal and if the blood pressure continues to remain well controlled I do not think she requires any further workup. We discussed importance of weight loss. She should stay on low-sodium diet. No changes were made to medication today. Application Penetration Tester service was used. Orders: Orders Total Protein Urine Random Today D35.02 - Benign neoplasm of left adrenal gland, E27.8 - Other specified disorders of adrenal gland, I10 - Essential (primary) hypertension Aldost/Renin Today D35.02 - Benign neoplasm of left adrenal gland, E27.8 - Other specified disorders of adrenal gland, I10 - Essential (primary) hypertension Aldosterone Today D35.02 - Benign neoplasm of left adrenal gland, E27.8 - Other specified disorders of adrenal gland, I10 - Essential (primary) hypertension Renin Today D35.02 - Benign neoplasm of left adrenal gland, E27.8 - Other specified disorders of adrenal gland, I10 - Essential (primary) hypertension Catecholamines, Frac., Plasma Today D35.02 - Benign neoplasm of left adrenal gland, E27.8 - Other specified disorders of adrenal gland, I10 - Essential (primary) hypertension Cortisol, Free Today I10 - Essential (primary) hypertension Coding Level of Care Code New Pt Level 4 (73214) Diagnoses Hypertension I10 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
[2024-01-05 15:00] VITALS: BP 120/80
== END 2024-01-05 15:18 | disposition home or self-care (01) ==
LOC: HO.HKAM 14:32
PROVIDERS: PCP Family Medicine; Referring Provider Family Medicine; Visit Provider Internal Medicine Hypertension Specialist
DX: I10 Essential (primary) hypertension (principal); D35.02 Benign neoplasm of left adrenal gland
CPT/HCPCS: 99204

== ENCOUNTER → 2024-01-05 14:32 | Outpatient (BNVA) | payer OTHER, SELFPAY | PROVIDERS: PCP Family Medicine; Referring Provider Family Medicine; Visit Provider Internal Medicine Hypertension Specialist | DX: I10 Essential (primary) hypertension (principal); D35.02 Benign neoplasm of left adrenal gland | CPT/HCPCS: 99202 ==

== ENCOUNTER 2024-01-10 09:47 | Outpatient (REF) | payer OTHER, SELFPAY ==
[2024-01-14 13:44] LABS: Renin 0.79 ng/mL/h (0.25-5.82)
[2024-01-14 17:48] LABS: Plasma Renin Activity 0.75 ng/mL/h (0.25-5.82)
[2024-01-17 03:49] LABS: Cortisol, Free 0.51 mcg/dL
== END 2024-01-10 09:48 | disposition home or self-care (01) ==
LOC: HO.HHCL 09:47
PROVIDERS: Visit Provider Internal Medicine Hypertension Specialist
DX: E27.8 Other specified disorders of adrenal gland (principal); D35.02 Benign neoplasm of left adrenal gland; I10 Essential (primary) hypertension
CPT/HCPCS: 36415; 82088; 82530; 84244

== ENCOUNTER 2024-01-11 07:55 | Outpatient (REF) | payer OTHER, SELFPAY ==
[2024-01-11 09:57] LABS: Total Protein Urine Random 10 mg/dL (<12)
[2024-02-01 16:09] LABS: Catecholamine Frac, Total 736 pg/mL
== END 2024-01-11 07:56 | disposition home or self-care (01) ==
LOC: HO.LAB 07:55
PROVIDERS: PCP Family Medicine; Visit Provider Internal Medicine Hypertension Specialist
DX: E27.8 Other specified disorders of adrenal gland (principal); D35.02 Benign neoplasm of left adrenal gland; I10 Essential (primary) hypertension
CPT/HCPCS: 36415; 82384; 84156

== ENCOUNTER 2024-02-09 14:16 | Outpatient (AMB) | payer OTHER, SELFPAY ==
[2024-02-09 14:18] VITALS: BP 126/86; PULSE 94; O2SAT 98
--- NOTE | 2024-02-09 14:18 | HO.NEPHOV_ITS ---
Vital Signs 02/09/24 14:18 Height 5 ft 4 in BP 126/86 Blood Pressure Location Lt brachial Position Sitting Pulse 94 Pulse Source Pulse Oximeter Pulse Oximetry (%) 98 Oxygen Delivery Method Room Air Intake Visit Reasons: 5w f/u labs/ Confirmed Glass Lined Tank Repairer Required: Yes Glass Lined Tank Repairer Name: Aniceto [id number] Accompanied by: Self / Same As Patient Allergies hydrocodone [HYDROCODONE] Allergy (Unknown, Verified 02/09/24 14:26) UNKNOWN levofloxacin [LEVOFLOXACIN] Allergy (Unknown, Verified 02/09/24 14:26) Rash metronidazole [METRONIDAZOLE] Allergy (Unknown, Verified 02/09/24 14:26) UNK promethazine [PROMETHAZINE] Allergy (Unknown, Verified 02/09/24 14:26) Rash Codeine Allergy (Unknown, Uncoded 11/26/22 14:53) swelling/ itching/ hives dye contrast Allergy (Unknown, Uncoded 11/26/22 14:53) red skin Hydrocodone-Acetaminophen Allergy (Unknown, Uncoded 11/26/22 14:53) rash HPI Comments Details: Che is a pleasant 73-year-old woman with a history of hypertension requiring 3 antihypertensive agents. She has a left adrenal adenoma. She was seen by Dr. Flores in 2020 for the same issue. As per records ,MRI of the abdomen 03/31/2005 showed: MRI of the abdomen is consistent with 1.5 cm left adrenal cortical adenoma probably nonhyperfunctioning adenoma. CT abdomen from 04/18/2007 revealed: 1.5 cm left adrenal mass. She tells me that initially the adenoma was noted in 1995 in [place]. This size has been holding steady, over the past 25 years. It is unclear if she underwent any biochemical workup. Today she has no new complaints. She has generalized body pain which she attributes to fibromyalgia. No shortness of breath. No palpitations. No unexplained sweating. No weight loss or weight gain. No urinary symptoms. All other systems were reviewed 02/09/2024. She underwent workup as outlined. She is having burning sensation in her epigastric region on and off. She is waiting to see oil well fishing tool operator [facility] Medical History Diverticulitis Hypertension Surgical History H/O section Family History Father No problems noted. Mother CVD (cardiovascular disease) Social History Alcohol intake: never Patient Tobacco Use Status: Never used Tobacco Physical Exam Vital Signs: Last Vital Signs Pulse 94 02/09/24 14:18 BP 126/86 02/09/24 14:18 Pulse Ox 98 02/09/24 14:18 Oxygen Delivery Method Room Air 02/09/24 14:18 Const General: comfortable Nutritional Appearance: well nourished Orientation/consciousness: patient oriented x3 HEENT Head: No normal to inspection Mouth: moist mucous membranes Neck Neck: Yes supple and Yes no JVD Resp Auscultation: clear to auscultation bilaterally, no rales and No rub present Cardio Jugular venous distension: no JVD Palpation: no palpable S3 and no palpable S4 Heart sounds: no rubs GI Palpation (GI): Soft to palpation and nontender Percussion: No Fluid wave present General: Yes no CVA tenderness Back/Spine/Pelvis Back: no CVA tenderness Skin General skin exam: no rashes or lesions noted Neuro General: patient oriented x3 Extrem General: Yes no pedal edema and No clubbing Results Reviewed Results Reviewed: . 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 Based on the prior imaging studies it appears that this cyst has been reasonably stable. Biochemical workup - including plasma renin activity, aldosterone, dopamine, total catecholamines, epinephrine and norepinephrine are in the normal range. The blood pressure is well controlled this time. Renal function is stable. She has no significant alkalosis or hypokalemia. We will continue to monitor the adrenal adenoma. Follow-up CT scan I ordered prior to next visit. We discussed importance of weight loss. She should stay on low-sodium diet. No changes were made to medication today. Encouraged to follow up with her oil well fishing tool operator. Glass Lined Tank Repairer service was used. 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
== END 2024-02-09 14:57 | disposition home or self-care (01) ==
LOC: HO.HKAM 14:16
PROVIDERS: PCP Family Medicine; Visit Provider Internal Medicine Hypertension Specialist
DX: I10 Essential (primary) hypertension (principal); D35.02 Benign neoplasm of left adrenal gland
CPT/HCPCS: 99214

== ENCOUNTER → 2024-02-09 14:16 | Outpatient (BNVA) | payer OTHER, SELFPAY | PROVIDERS: PCP Family Medicine; Visit Provider Internal Medicine Hypertension Specialist | DX: D35.02 Benign neoplasm of left adrenal gland (principal); I10 Essential (primary) hypertension | CPT/HCPCS: 99212 ==

== ENCOUNTER 2024-04-10 10:22 | Outpatient (AMB) | payer OTHER, SELFPAY ==
[2024-04-10 10:37] VITALS: BP 130/70; PULSE 73; BMI 29.2
--- NOTE | 2024-04-10 10:37 | MHC.OFFVIS ---
Vital Signs 04/10/24 10:37 Height 5 ft 4 in Weight 170 lb BMI 29.2 BP 130/70 Blood Pressure Location Lt brachial Position Sitting Pulse 73 Pulse Source Pulse Oximeter Intake Visit Reasons: 6 mo f/u Intake Note: 6 mth f/up Chemical Analytical Sampler Required: Yes Chemical Analytical Sampler Name: Raúl/renata/turkmen Accompanied by: Self / Same As Patient Allergies hydrocodone [HYDROCODONE] Allergy (Unknown, Verified 02/09/24 14:26) UNKNOWN levofloxacin [LEVOFLOXACIN] Allergy (Unknown, Verified 02/09/24 14:26) Rash metronidazole [METRONIDAZOLE] Allergy (Unknown, Verified 02/09/24 14:26) UNK promethazine [PROMETHAZINE] Allergy (Unknown, Verified 02/09/24 14:26) Rash Codeine Allergy (Unknown, Uncoded 11/26/22 14:53) swelling/ itching/ hives dye contrast Allergy (Unknown, Uncoded 11/26/22 14:53) red skin Hydrocodone-Acetaminophen Allergy (Unknown, Uncoded 11/26/22 14:53) rash Medication List - Last Reconciled 04/10/24 by Hieu Karimi MD atorvastatin 40 mg PO DAILY chlorthalidone 25 mg PO DAILY clopidogrel 75 mg PO DAILY cyanocobalamin (vitamin B-12) 500 mcg PO DAILY cyclobenzaprine 10 mg PO TID PRN lorazepam 1 mg PO BID PRN losartan 100 mg PO DAILY metformin ER 500 mg PO DAILY metoprolol tartrate 50 mg PO BID pantoprazole (Protonix) 40 mg PO DAILY HPI Comments Details: Pleasant 73-year-old lady here for follow-up. She is accompanied by her FEED CRUSHER OPERATOR who acted as the patient access director. Patient was originally seen for dyspnea and palpitations. She underwent echocardiography which showed grade 1 diastolic dysfunction but did not show any significant valvular issues or LV or RV dysfunction. She underwent cardiac event monitoring which was unremarkable and did not show any significant arrhythmia. She returns for follow-up today. She was in the emergency department on 07/04/2022 with left-sided paresthesias as well as numbness of her tongue. She was unable to speak. She was sent home with a diagnosis of fibromyalgia and paresthesia. She is saying she has been doing well since then. She has been taking baby aspirin before and no changes in medications were made. Denying any chest discomfort or palpitations. Blood pressure control is good currently. Her aspirin was stopped and she was started on Plavix. Today she returns for follow-up and is complaining of chest discomfort which has been happening for the last few weeks. This happens when she does activities and improves that she rest. Pattern is concerning for angina. Her blood pressure control is good. Do not have any ischemic evaluation recently. 06/23/23: She returns for follow-up. She is denying any chest discomfort. She previously had Lexiscan performed because she could not exercise on treadmill. Lexiscan showed probably normal perfusion with suspected diaphragmatic attenuation artifact causing inferolateral perfusion defect. This was felt to be more likely to be artifact than ischemia. As mentioned she is denying any symptoms on follow-up. Her blood pressure is elevated and had a discussion with her that we should titrate medications or add amlodipine 2.5 mg once a day. She is saying that her blood pressure is elevated due to anxiety and whenever she gets it checked at her pharmacy does normal. I had long discussion with her and we have decided to keep a log of blood pressure for 2 weeks and bring it on follow-up next time. 04/10/2024: She is here for follow-up. Blood pressure is well controlled on follow-up. She is getting some atypical chest pains. She has not been physically active. Taking medications regularly. [facility] Medical History Diverticulitis Hypertension Surgical History H/O section Family History Father No problems noted. Mother CVD (cardiovascular disease) Social History Alcohol intake: never Patient Tobacco Use Status: Never used Tobacco Physical Exam Vital Signs: Last Vital Signs Pulse 73 04/10/24 10:37 BP 130/70 04/10/24 10:37 BMI result Body Mass Index 29.2 GENERAL APPEARANCE: in no acute distress, well developed, well nourished. NECK/THYROID: no carotid bruit, no jugular venous distention. SKIN: normal, no rashes. HEART: no murmurs, regular rate and rhythm, S1, S2 normal. LUNGS: clear to auscultation bilaterally. ABDOMEN: normal, bowel sounds present, soft, nontender, nondistended. EXTREMITIES: no edema. PERIPHERAL PULSES: equal. NEUROLOGIC: nonfocal, motor strength normal upper and lower extremities, sensory exam intact. PSYCH: mood/affect full range. Assessment & Plan Assessment & Plan (1) Hypertension: Code(s): I10 - Essential (primary) hypertension Category: Medical Plan [age] year female who is here for follow-up. She was complaining of chest pain previously and had Lexiscan performed. This showed inferolateral perfusion defect which was felt to be attenuation artifact from diaphragm. She continues to have off and on chest discomfort but clinical story is quite atypical. I have advised her to increase her physical activity. Obviously with activity for chest discomfort is more frequent then we may have to do further testing and in that case I will pursue a coronary CTA. She does have a contrast dye allergy and will need preparation in that situation. Blood pressure is well controlled. She has see us back in few months. Thank you for allowing me to participate in the care of your patient. Please feel free to contact me if you have any questions. Coding Level of Care Code Est Pt Level 4 (04821) Diagnoses Hypertension I10
== END 2024-04-10 11:08 | disposition home or self-care (01) ==
PROVIDERS: PCP Family Medicine; Visit Provider Internal Medicine Cardiovascular Disease
DX: I10 Essential (primary) hypertension (principal)
CPT/HCPCS: 99214

== ENCOUNTER → 2024-04-10 10:22 | Outpatient (BNVA) | payer OTHER, SELFPAY | PROVIDERS: PCP Family Medicine; Visit Provider Internal Medicine Cardiovascular Disease | DX: I10 Essential (primary) hypertension (principal); R07.89 Other chest pain | CPT/HCPCS: 99212 ==

== ENCOUNTER → 2024-05-16 10:59 | Outpatient (RCR) | payer MEDICARE, SELFPAY ==
[2021-06-05 10:26] LABS: MANUAL DIFF FLAG NO
--- NOTE | 2021-06-05 10:27 | PM.HEMONCPN ---
Medical Summary - Medical Summary Date of Service: 06/05/21 Chief complaint: Follow-up for: Left adrenal adenoma. Medical Summary: DIAGNOSIS: LEFT ADRENAL ADENOMA. Interval History Interval history: This is a pleasant 70 year-old lady, here for a follow-up visit, after a long hiatus. She said she did not come in because of COVID epidemic. Energy level is up and down. She denies headache no dizziness. No chest pain or trouble breathing. She has noted some discomfort on the right side of her trunk. It is not even a pain she says. It occurs when she is moving getting up from the toilet etc. She has been using local cream and Tylenol. These take the edge off. Denies abdominal pain nausea vomiting heartburn indigestion. Her bowels are working without any gross blood in it. She enjoys a good appetite. She has lost some weight. She will be scheduled for a colonoscopy with Dr. Casanova in the near future. She denies any other major complaints. She is in good spirits. Rest of the review of systems is unremarkable. Review of Systems - Constitutional Reports system reviewed and no additional complaints, except as documented, Reports lack of energy, Reports malaise, Reports weakness, Reports weight loss - Eyes Reports system reviewed and no additional complaints, except as documented - ENT Reports system reviewed and no additional complaints, except as documented - Cardiovascular Reports system reviewed and no additional complaints, except as documented - Respiratory Reports no additional respiratory complaints - Gastrointestinal Reports system reviewed and no additional complaints, except as documented - Genitourinary Reports no additional female genitourinary complaints - Musculoskeletal Reports system reviewed and no additional complaints, except as documented Comments: Pain right side of trunk - Integumentary/Breasts Skin/Breast: Reports no additional skin complaints - Neurologic Reports system reviewed and no additional complaints, except as documented - Psychiatric Reports system reviewed and no additional complaints, except as documented - Endocrine Reports no additional endocrine complaints - Hematologic/Lymphatic Reports system reviewed and no additional complaints, except as documented - Allergic/Immunologic Reports system reviewed and no additional complaints, except as documented PMFSH Medical History: Medical History (Last Reviewed 06/05/21 @ 10:32 by Kirill Wellington) Hypertension Functional capacity: independent ambulation Patient : No Family History: Family History (Last Reviewed 06/05/21 @ 10:32 by Kirill Wellington) Father No problems noted. Mother CVD (cardiovascular disease) Surgical History: Surgical History (Last Reviewed 06/05/21 @ 10:32 by Kirill Wellington) H/O section Social History: Social History (Last Updated 07/04/20 @ 12:48 by Shannon Frey [facility]) Nutrition Assessment: Patient : No Oncology Screenings - ECOG Performance Status ECOG Performance Status: 0 Home Medications and Allergies Home Medications Medication Instructions Recorded Confirmed Type aspirin 81 mg chewable tablet 1 tab PO DAILY 07/04/20 07/04/20 History atorvastatin 40 mg tablet mg PO 07/04/20 07/04/20 History cholecalciferol (vitamin D3) 50 50 mcg PO DAILY 07/04/20 07/04/20 History mcg (2,000 unit) capsule hydrochlorothiazide 25 mg tablet 25 mg PO DAILY 07/04/20 07/04/20 History lorazepam 1 mg tablet 1 mg PO BID PRN 07/04/20 07/04/20 History losartan 100 mg tablet 100 mg PO DAILY 07/04/20 07/04/20 History metformin 500 mg tablet,extended 500 mg PO DAILY 07/04/20 07/04/20 History release 24 hr metoprolol tartrate 50 mg tablet 50 mg PO BID 07/04/20 07/04/20 History ranitidine HCl 150 mg tablet 150 mg PO BID PRN 07/04/20 07/04/20 History Allergies Allergy/AdvReac Type Severity Reaction Status Date / Time codeine Allergy Unknown rash Verified 02/19/21 15:00 hydrocodone [HYDROCODONE] Allergy Unknown UNKNOWN Verified 02/19/21 15:00 levofloxacin [LEVOFLOXACIN] Allergy Unknown UNKNOWN, Verified 02/19/21 15:00 rash metronidazole [METRONIDAZOLE] Allergy Unknown UNK Verified 02/19/21 15:00 promethazine [PROMETHAZINE] Allergy Unknown UNKNOWN, Verified 02/19/21 15:00 rash Codeine Allergy Unknown swelling/ Uncoded 12/13/18 00:00 itching/ hives dye contrast Allergy Unknown red skin Uncoded 02/29/20 00:00 Hydrocodone-Acetaminophen Allergy Unknown rash Uncoded 02/29/20 00:00 Exam - Constitutional Present: no acute distress - Routine HEENT Exam Head: Present: normal inspection Eye: Present: normal appearance ENT: Present: mucous membranes moist - Routine Neck Exam Present: full ROM - Routine Respiratory Exam Present: CTAB - Routine Cardiovascular Exam Cardiovascular: Present: RRR, S1, S2 - Routine Abdominal Exam Present: soft, nontender - Routine Rectal Exam Patient deferred: digital exam - Routine Extremities Exam Present: nontender - Routine Back/Spine/Pelvis Exam Back/Spine: Present: full ROM - Routine Skin Exam Present: intact - Routine Neurological Exam Present: alert, oriented X3 - Routine Psychiatric Exam Present: normal affect Data - Labs CBC & Chem 7: 06/05/21 10:15 06/05/21 10:15 Assessment and Plan Patient Active problem list reviewed?: Yes (1) 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 This was noted in November. It was noted to be stable in March. Actually, review of previous imaging in the computer revealed: MRI of the abdomen 03/31/2005 showed: MRI of the abdomen is consistent with 1.5 cm left adrenal cortical adenoma probably nonhyperfunctioning adenoma. CT abdomen from 04/18/2007 revealed: 1.5 cm left adrenal mass. Comparison to prior studies, if available, would be recommended. An MRI may be helpful in determining whether this is an adenoma. She tells me that initially the adenoma was noted in 1995 in [place]. All this is reassuring. This size has been holding steady, over the past 25 years. She does not have any symptoms suggestive of secreting adenoma. I reviewed the imaging with the radiologist, to confirm. She was lost to follow-up but is now here. She said she had in come due to COVID. She has pain in her right side. Likely muscular. She was advised to call her primary. PLAN: The patient does not need to undergo any further evaluation. I would continue to monitor her, clinically. She will actually continue to follow-up with her primary doctor. If she has any symptoms or complaints, the daughter will get back in touch with us. Thank you, CC: Dr. Mckeon. - Time Spent With Patient Time Spent with Patient (in minutes): 25
[2021-06-05 10:31] VITALS: BP 155/81; PULSE 93; RESP 18; TEMP 36.8; O2SAT 98; BMI 32.7
[2021-06-05 10:31] LABS: Basophils Percent Auto 0.4 % (0-2); Eosinophils Absolute Auto 0.1 X10*3/uL (0.0-0.4); Eosinophils Percent Auto 1.5 % (0-4); Hematocrit 37.4 % (37-47); Hemoglobin 12.8 g/dl (12.0-16.0); Imm Gran Abs Auto 0.02 X10*3/uL (0.00-0.03); Imm Gran Pct Auto 0.4 % (0.0-0.4); Lymphocytes Absolute Auto 1.1 X10*3/uL (1.2-4.9); Mean Corpuscular HGB Conc 34.2 g/dl (31.0-35.0); Mean Corpuscular Hemoglobin 31.2 pg (27.0-33.0); Mean Corpuscular Volume 91.2 fL (80-98); Mean Platelet Volume 10.1 fL (9.4-12.3); Monocytes Absolute Auto 0.6 X10*3/uL (0.1-1.2); Monocytes Percent Auto 11.4 % (2-11); Neutrophils Absolute Auto 3.3 X10*3/uL (2.0-8.3); Neutrophils Percent Auto 64.3 % (45-73); Platelet Count 215 X10*3/uL (160-400); Red Cell Distribution Width 12.4 % (11.0-16.0); White Blood Count 5.2 X10*3/uL (4.8-10.8)
[2021-06-05 10:51] LABS: Alanine Aminotransferase 23 U/L (0-31); Albumin Level 4.4 g/dL (3.5-5.0); Alkaline Phosphatase 54 U/L (39-117); Anion Gap 10 (12-20); Aspartate Amino Transferase 17 U/L (5-31); Bilirubin Total 0.5 mg/dL (0.0-1.0); Blood Urea Nitrogen 10 mg/dL (9-16); Calcium 9.2 mg/dL (8.4-10.2); Carbon Dioxide 27 mmol/L (22-29); Chloride 102 mmol/L (96-108); Creatinine Clr Calc Pharmacy 66.3; Estimated Glomerular Filt Rate > 60; Glucose Random 148 mg/dL (60-115); Potassium 4.1 mmol/L (3.3-5.1); Sodium 135 mmol/L (135-145); Total Protein 6.6 g/dL (6.5-8.0)
== END | disposition home or self-care (01) ==
LOC: HO.ONC 06-05 09:53
PROVIDERS: Visit Provider Internal Medicine Medical Oncology
DX: D35.02 Benign neoplasm of left adrenal gland (principal)
CPT/HCPCS: 36415; 80053; 85025; 99213

== ENCOUNTER 2024-06-05 | Outpatient (REF) | payer OTHER, SELFPAY ==
--- NOTE | ~2024-06-05 | XR_ITS ---
EXAMINATION: XR ANKLE, LEFT CLINICAL INFORMATION: Left ankle pain and swelling. No injury. COMPARISON: None available. TECHNIQUE: AP, lateral, and mortise views of the left ankle. FINDINGS: No fracture identified. Alignment is anatomic. Plantar and Achilles calcaneal spurs. No erosions appreciated. Joint spaces appear maintained. Mild diffuse soft tissue swelling about the left ankle, nonspecific. XR/XR ankle LT min 3V IMPRESSION: Findings as above. Electronically signed by: Mason Jolley MD 06/05/2024 10:55 AM EDT
== END 2024-06-05 00:01 | disposition home or self-care (01) ==
LOC: HO.XRAY
PROVIDERS: PCP Family Medicine; Visit Provider Family Medicine
DX: M25.472 Effusion, left ankle (principal)
CPT/HCPCS: 73610

== ENCOUNTER 2024-06-06 08:59 | Outpatient (REF) | payer OTHER, SELFPAY ==
--- NOTE | ~2024-06-06 | MM_ITS ---
EXAMINATION: MM SCREENING DIGITAL BREAST TOMOSYNTHESIS, BILATERAL CLINICAL INFORMATION: Screening. Asymptomatic. COMPARISON: Mammography: Comparison is made with available priors TECHNIQUE: Digital breast mammography with tomosynthesis is performed in both the craniocaudal and mediolateral oblique views along with computer-aided detection (CAD). FINDINGS: There are scattered areas of fibroglandular density (ACR BI-RADS breast composition Category b). There are no significant masses, abnormal calcifications, or other abnormalities. MM/MM tomosynthesis screening BI IMPRESSION: No mammographic evidence of malignancy. ASSESSMENT: BI-RADS BI-RADS 1 - Negative RECOMMENDATION: Routine annual mammography screening. 1 year F/U This examination should not preclude the clinical evaluation of a suspicious palpable abnormality. This patient's information was entered into a reminder system with a target due date for their next mammogram. Electronically signed by: Urvashi Blanton DO 06/15/2024 07:10 PM EDT
== END 2024-06-06 09:00 | disposition home or self-care (01) ==
LOC: HO.MAMMO 08:59
PROVIDERS: PCP Family Medicine; Visit Provider Family Medicine
DX: Z12.31 Encounter for screening mammogram for malignant neoplasm of breast (principal)
CPT/HCPCS: 77063; 77067

== ENCOUNTER → 2024-06-06 09:15 | Outpatient (BNV) | payer OTHER, SELFPAY | PROVIDERS: PCP Family Medicine; Visit Provider Internal Medicine | DX: Z12.31 Encounter for screening mammogram for malignant neoplasm of breast (principal) | CPT/HCPCS: 77063; 77067 ==

== ENCOUNTER 2024-06-08 06:50 | Outpatient (REF) | payer OTHER, SELFPAY ==
[2024-06-08 07:11] LABS: MANUAL DIFF FLAG NO
[2024-06-08 07:38] LABS: Basophils Percent Auto 0.6 % (0-2); Eosinophils Absolute Auto 0.1 X10*3/uL (0.0-0.4); Eosinophils Percent Auto 1.8 % (0-4); Hematocrit 36.7 % (37.0-47.0); Hemoglobin 12.9 g/dl (12.0-16.0); Imm Gran Abs Auto 0.04 X10*3/uL (0.00-0.03); Imm Gran Pct Auto 0.6 % (0.0-0.4); Lymphocytes Absolute Auto 1.4 X10*3/uL (1.2-4.9); Lymphocytes Percent Auto 20.1 % (20-40); Mean Corpuscular HGB Conc 35.1 g/dl (31.0-35.0); Mean Corpuscular Hemoglobin 31.6 pg (27.0-33.0); Mean Platelet Volume 10.4 fL (9.4-12.3); Monocytes Absolute Auto 0.6 X10*3/uL (0.1-1.2); Neutrophils Absolute Auto 4.9 x10*3/uL (2.0-8.3); Neutrophils Percent Auto 67.9 % (45-73); Platelet Count 226 X10*3/uL (160-400); Red Blood Count 4.08 X10*6/uL (4.20-5.50); Red Cell Distribution Width 12.6 % (11.0-16.0); White Blood Count 7.2 X10*3/uL (4.8-10.8)
[2024-06-08 08:11] LABS: Creatinine Urine 105.61 mg/dL; Microalbumin Urine < 5.0 mg/L
[2024-06-08 08:20] LABS: Alanine Aminotransferase 19 U/L (0-31); Albumin Level 4.3 g/dL (3.5-5.0); Alkaline Phosphatase 53 U/L (39-117); Anion Gap 12 (12-20); Aspartate Amino Transferase 15 U/L (5-31); Bilirubin Total 0.6 mg/dL (0.0-1.0); Blood Urea Nitrogen 12 mg/dL (9-16); C Reactive Protein 0.72 mg/dL (< or = 0.50); Calcium 9.8 mg/dL (8.4-10.2); Carbon Dioxide 29 mmol/L (22-29); Chloride 100 mmol/L (96-108); Cholesterol 166 mg/dL (<200); Estimated Glomerular Filt Rate > 60; Glucose Random 161 mg/dL (60-115); HDL Cholesterol 38 mg/dL (>40); LDL Cholesterol Calculated 74 mg/dL (<100); Potassium 3.8 mmol/L (3.3-5.1); Sodium 137 mmol/L (135-145); Total Protein 6.8 g/dL (6.5-8.0); Triglycerides 273 mg/dL (<150); Uric Acid 5.2 mg/dL (2.4-5.7)
[2024-06-08 08:28] LABS: Erythrocyte Sedimentation Rate 13 MM/HR (0-20); TSH reflex Free T4 2.09 uIU/mL (0.32-4.0)
[2024-06-08 08:43] LABS: Folate 12.6 ng/mL (> or = 4.0); Vitamin B12 730 pg/mL (200-900)
[2024-06-08 10:38] LABS: Reflex LDLD? No
== END 2024-06-08 06:51 | disposition home or self-care (01) ==
LOC: HO.LAB 06:50
PROVIDERS: PCP Family Medicine; Visit Provider Internal Medicine Hypertension Specialist
DX: E11.9 Type 2 diabetes mellitus without complications (principal); M25.472 Effusion, left ankle; E78.5 Hyperlipidemia, unspecified; I10 Essential (primary) hypertension; D35.02 Benign neoplasm of left adrenal gland; M25.742 Osteophyte, left hand
CPT/HCPCS: 36415; 80053; 80061; 82043; 82570; 82607; 82746; 84443; 84550; 85025; 85027; 85652; 86140

== ENCOUNTER 2024-06-13 09:49 | Outpatient (REF) | payer OTHER, SELFPAY | END 2024-06-13 09:50 | disposition home or self-care (01) | LOC: HO.CT 09:49 | PROVIDERS: PCP Family Medicine; Visit Provider Internal Medicine Hypertension Specialist | DX: Z13.89 Encounter for screening for other disorder (principal) ==

== ENCOUNTER 2024-06-14 12:14 | Emergency (ER) | payer OTHER, SELFPAY ==
--- NOTE | ~2024-06-14 | CT_ITS ---
EXAMINATION: CT ABDOMEN AND PELVIS WITHOUT CONTRAST CLINICAL INFORMATION: Left lower quadrant pain. History of diverticulitis. COMPARISON: CT scan abdomen and pelvis March 03, 2022 TECHNIQUE: Multidetector volumetric imaging was performed from the superior aspect of the liver through the pubic symphysis. Sagittal and coronal reformatted images were obtained on the technologist's workstation. This CT examination was performed using dose optimization techniques as appropriate, variously including the following: *Automated exposure control *Adjustment of mA and/or kV according to patient size (this includes techniques or standardized protocols for targeted exams where dose is matched to indication/reason for exam; i.e. extremities or head) *Use of iterative reconstruction technique DLP: 537 mGy-cm FINDINGS: LUNG BASES: The visualized lung bases are unremarkable. LIVER, GALLBLADDER, AND BILIARY TREE: The liver is normal in size, shape, and attenuation. No suspicious focal hepatic lesion or biliary ductal dilatation is present. Stable hepatic cyst left lobe of liver. Status post cholecystectomy PANCREAS: Unremarkable. SPLEEN: Unremarkable. ADRENAL GLANDS: Unremarkable. KIDNEYS AND URETERS: Fullness of the right and left renal pelvis without hydroureter. This is similar to the prior CAT scan March 03, 2022. No renal or ureteral calculi. BLADDER: Unremarkable. GASTROINTESTINAL TRACT: Numerous diverticula of the colon. Focal diverticulitis in the descending colon distally. There is edema in the pericolonic fat. No perforation or abscess. No bowel obstruction. Moderate to large volume of stool throughout the colon. The appendix is normal. Small bowel loops and stomach are unremarkable. ABDOMINAL WALL: No significant hernia is appreciated. LYMPH NODES: Normal. VASCULAR: Small volume of scattered vascular wall calcifications of aorta and iliac arteries. There is no aneurysm. PELVIC VISCERA: Unremarkable. OSSEOUS STRUCTURES: Multilevel degenerative spondylosis spine. CT/CT abdomen pelvis wo IV con IMPRESSION: Diverticulitis of the descending colon. No perforation or abscess. Fleischner guidelines were followed. Electronically signed by: David Magaña MD 06/14/2024 11:20 PM EDT
[2024-06-14 12:56] VITALS: BP 127/76; PULSE 123; RESP 16; TEMP 37.3; O2SAT 97; BMI 32.9
--- NOTE | 2024-06-14 13:08 | ED.GENADULT ---
HPI - General Adult General Chief complaint: Abdominal Pain Stated complaint: ABd pain-hx diverticulitis Time Seen by Provider: 06/14/24 18:07 Source: patient Mode of arrival: ambulatory Limitations: no limitations History of Present Illness ED Provider: francisco j VOSS narrative: Patient with history of remote diverticulitis comes here for pain in left lower abdomen for last 2 days no nausea no vomiting no diarrhea no blood in his stool no fever patient feels hungry no urinary complaints no history of kidney stone no fever or chills Related Data Home Medications ?Medication ?Instructions ?Recorded ?Confirmed lorazepam 1 mg tablet 1 mg PO BID PRN anxiety 07/04/20 04/10/24 losartan 100 mg tablet 100 mg PO DAILY 07/04/20 04/10/24 metformin 500 mg tablet,extended 500 mg PO DAILY 07/04/20 04/10/24 release 24 hr metoprolol tartrate 50 mg tablet 50 mg PO BID 07/04/20 04/10/24 atorvastatin 40 mg tablet 40 mg PO DAILY 07/06/22 04/10/24 cyanocobalamin (vitamin B-12) 500 500 mcg PO DAILY 07/06/22 04/10/24 mcg tablet chlorthalidone 25 mg tablet 25 mg PO DAILY 07/17/22 04/10/24 pantoprazole 40 mg tablet,delayed 40 mg PO DAILY 07/17/22 04/10/24 release (Protonix) Previous Rx's ?Medication ?Instructions ?Recorded cyclobenzaprine 10 mg tablet 10 mg PO TID PRN pain #18 tabs 02/19/21 clopidogrel 75 mg tablet 75 mg PO DAILY #90 tabs 05/01/24 amoxicillin 875 mg-potassium 1 tab PO BID #20 tabs 06/14/24 clavulanate 125 mg tablet tramadol 50 mg tablet 50 mg PO Q6H PRN pain #20 tabs 06/14/24 Allergies Allergy/AdvReac Type Severity Reaction Status Date / Time hydrocodone [HYDROCODONE] Allergy Unknown UNKNOWN Verified 06/14/24 12:59 levofloxacin [LEVOFLOXACIN] Allergy Unknown Rash Verified 06/14/24 12:59 metronidazole [METRONIDAZOLE] Allergy Unknown UNK Verified 06/14/24 12:59 promethazine [PROMETHAZINE] Allergy Unknown Rash Verified 06/14/24 12:59 Codeine Allergy Unknown swelling/ Uncoded 11/26/22 14:53 itching/ hives dye contrast Allergy Unknown red skin Uncoded 11/26/22 14:53 Hydrocodone-Acetaminophen Allergy Unknown rash Uncoded 11/26/22 14:53 Review of Systems Review of Systems: Yes all other systems are reviewed and are negative [facility] Past Medical History Medical History Diverticulitis Hypertension Surgical History H/O section Family History Family History Father No problems noted. Mother CVD (cardiovascular disease) Social History Social History Alcohol intake: never Patient Tobacco Use Status: Never used Tobacco Use of substances other than those prescribed or required for medical reasons: No Advance Directives: No Advance Directives Information Provided: No Do you have a plan to hurt others: No Plan Physical Exam ED Vital Signs: Vital Signs - 24 hr 06/14/24 12:56 06/14/24 18:16 06/14/24 21:26 Temperature 99.1 F 98.4 F Pulse Rate 123 H 105 H 77 Respiratory Rate 16 18 18 Blood Pressure 127/76 156/72 H 126/54 L Pulse Oximetry 97 97 98 Oxygen Delivery Method Room Air Room Air Room Air 06/14/24 23:48 06/15/24 00:03 Temperature 98.4 F 98.4 F Pulse Rate 84 84 Respiratory Rate 16 16 Blood Pressure 147/70 H 147/70 H Pulse Oximetry 99 99 Oxygen Delivery Method Room Air Room Air BMI result Body Mass Index 32.9 Appearance: Alert. Oriented X3. No acute distress. Eyes: No pallor or icterus ENT: Pharynx normal. Oral Mucosa moist Neck: Normal inspection. Neck supple. CVS: Normal heart rate and rhythm. Pulses normal. Respiratory: No respiratory distress. Equal air entry bilateral, no wheezing/rales/rhonchi Abdomen: Soft and deep tenderness LLQ Bowel sounds are present, no mass palpable, no CVA tenderness Skin: Skin warm and dry. Normal skin color. Normal skin turgor. Extremities: No lower extremity edema. No calf tenderness Neuro: Oriented X 3. No motor deficit. Course Course Course Narrative: RME: Done by CAM Bucio. 74-year-old female presents to ED for left lower quadrant abdominal pain with history of diverticulitis. Patient denies any nausea vomiting. Patient states pain radiating to the umbilicus. Patient states positive for diverticulitis in the past. Positive for left lower quadrant tenderness on palpation. Patient has tacky. Medications Administered Discontinued Medications Generic Name Dose Route Start Last Admin Trade Name Freq PRN Reason Stop Dose Admin Amoxicillin/Clavulanate Potassium 875 mg 06/14/24 23:28 06/14/24 23:47 Amoxicillin/Potassium Clav 875 Mg Tablet PO 06/14/24 23:29 875 mg ONCE ONE Administration Tramadol HCl 50 mg 06/14/24 23:30 06/14/24 23:47 Tramadol Hcl 50 Mg Tablet PO 06/14/24 23:31 Not Given ONCE ONE Medical Decision Making Medical Decision Making MDM Narrative: Patient's uncomplicated diverticulitis with lower abdominal pain vitals stable will discharge patient home on Augmentin and tramadol for pain Differential Diagnosis Differential Diagnoses: The differential diagnosis associated with the presentation includes Diverticulitis/constipation/colitis Admission/Observation Consideration of admission/observation: Escalation of care including admission/observation considered Lab Data [facility] Lab Attestation statement: I reviewed the patient's lab results. 06/14/24 14:45 06/14/24 14:45 Labs: Lab Results 06/14/24 06/14/24 06/14/24 Range/Units 14:45 14:50 23:16 WBC 11.4 H (4.8-10.8) X10*3/uL RBC 4.12 L (4.20-5.50) X10*6/uL Hgb 12.9 (12.0-16.0) g/dl Hct 36.9 L (37.0-47.0) % MCV 89.6 (80.0-98.0) fL MCH 31.3 (27.0-33.0) pg MCHC 35.0 (31.0-35.0) g/dl RDW 12.5 (11.0-16.0) % Plt Count 213 (160-400) X10*3/uL MPV 10.2 (9.4-12.3) fL Immature Gran % (Auto) 0.4 (0.0-0.4) % Neut % (Auto) 72.4 (45-73) % Lymph % (Auto) 14.8 L (20-40) % [place] % (Auto) 11.4 H (2-11) % Eos % (Auto) 0.6 (0-4) % Baso % (Auto) 0.4 (0-2) % Lymph # (Auto) 1.7 (1.2-4.9) X10*3/uL [place] # (Auto) 1.3 H (0.1-1.2) X10*3/uL Eos # (Auto) 0.1 (0.0-0.4) X10*3/uL Baso # (Auto) 0.0 (0.0-0.2) X10*3/uL Abs Immat Gran (auto) 0.04 H (0.00-0.03) X10*3/uL Absolute Neuts (auto) 8.3 (2.0-8.3) x10*3/uL Absolute Nucleated RBC 0.000 (0.0-0.012) X10*3/uL Nucleated RBC % (auto) 0.0 (0.0-0.2) /100WBC PT 12.6 H (10.9-12.4) SEC INR 1.1 (0.9-1.1) APTT 29.8 (26.0-36.8) SEC Sodium 138 (135-145) mmol/L Potassium 3.3 (3.3-5.1) mmol/L Chloride 100 (96-108) mmol/L Carbon Dioxide 32 H (22-29) mmol/L Anion Gap 9 L (12-20) BUN 10 (9-16) mg/dL Creatinine 0.71 (0.5-1.4) mg/dL Estim Creat Clear Calc 67.1 Estimated GFR > 60 POC Glucose 126 H (60-115) mg/dL Random Glucose 106 (60-115) mg/dL Calcium 9.6 (8.4-10.2) mg/dL Total Bilirubin 0.8 (0.0-1.0) mg/dL AST 13 (5-31) U/L ALT 14 (0-31) U/L Alkaline Phosphatase 59 (39-117) U/L Total Protein 7.2 (6.5-8.0) g/dL Albumin 4.4 (3.5-5.0) g/dL Urine Color Yellow Urine Appearance Clear Urine pH 8.0 (5.0-9.0) Ur Specific Bypro <= 1.005 (1.005-1.025) Urine Protein Negative (Neg-Trace) mg/dL Urine Glucose (UA) Negative (Negative) mg/dL Urine Ketones Negative (Negative) mg/dL Urine Blood Negative (Negative) Urine Nitrite Negative (Negative) Ur Leukocyte Esterase Negative (Negative) Discharge Plan Discharge Clinical Impression: Diverticulitis Patient Disposition: Home, Self-Care Instructions: Diverticulitis (ED), Diverticulitis Diet (ED) Additional Instructions: Take antibiotics as prescribed Clear liquids advanced slowly as tolerated Pain medication as prescribed Report to ER if increased pain/fever/vomiting/blood in stool Prescriptions: New tramadol 50 mg tablet 50 mg PO Q6H PRN (Reason: pain) Qty: 20 0RF amoxicillin-pot clavulanate 875-125 mg tablet 1 tab PO BID Qty: 20 0RF No Action pantoprazole [Protonix] 40 mg tablet,delayed release (DR/EC) 40 mg PO DAILY chlorthalidone 25 mg tablet 25 mg PO DAILY clopidogrel 75 mg tablet 75 mg PO DAILY Qty: 90 3RF cyclobenzaprine 10 mg tablet 10 mg PO TID PRN (Reason: pain) Qty: 18 0RF Rx Instructions: El efecto secundario es la somnolencia. No lo tome en el trabajo o mientras conduce. metformin 500 mg tablet extended release 24 hr 500 mg PO DAILY metoprolol tartrate 50 mg tablet 50 mg PO BID losartan 100 mg tablet 100 mg PO DAILY lorazepam 1 mg tablet 1 mg PO BID PRN (Reason: anxiety) atorvastatin 40 mg tablet 40 mg PO DAILY cyanocobalamin (vitamin B-12) 500 mcg tablet 500 mcg PO DAILY Interventions: ED Discharge Assessment Last Done: 06/15/24 00:03 Discharge Date/Time: 06/15/24 00:06 Print Language: Turkmen
[2024-06-14 14:55] LABS: MANUAL DIFF FLAG NO
[2024-06-14 14:58] LABS: Appearance Urine Clear; Color Urine Yellow; Glucose Urine UA Negative (Negative); Leukocyte Esterase Urine Negative (Negative); Nitrite Urine Negative (Negative); Specific Gravity - Urine <= 1.005 (1.005-1.025); Urine Blood Negative (Negative); Urine Ketones Negative (Negative); Urine Protein Negative (Neg-Trace)
[2024-06-14 14:59] LABS: Basophils Percent Auto 0.4 % (0-2); Eosinophils Absolute Auto 0.1 X10*3/uL (0.0-0.4); Eosinophils Percent Auto 0.6 % (0-4); Hematocrit 36.9 % (37.0-47.0); Hemoglobin 12.9 g/dl (12.0-16.0); Imm Gran Abs Auto 0.04 X10*3/uL (0.00-0.03); Imm Gran Pct Auto 0.4 % (0.0-0.4); Lymphocytes Absolute Auto 1.7 X10*3/uL (1.2-4.9); Lymphocytes Percent Auto 14.8 % (20-40); Mean Corpuscular Hemoglobin 31.3 pg (27.0-33.0); Mean Corpuscular Volume 89.6 fL (80.0-98.0); Mean Platelet Volume 10.2 fL (9.4-12.3); Monocytes Absolute Auto 1.3 X10*3/uL (0.1-1.2); Monocytes Percent Auto 11.4 % (2-11); Neutrophils Absolute Auto 8.3 x10*3/uL (2.0-8.3); Neutrophils Percent Auto 72.4 % (45-73); Platelet Count 213 X10*3/uL (160-400); Red Blood Count 4.12 X10*6/uL (4.20-5.50); Red Cell Distribution Width 12.5 % (11.0-16.0); White Blood Count 11.4 X10*3/uL (4.8-10.8)
[2024-06-14 15:04] LABS: INTERNATIONAL NORM RATIO 1.1 (0.9-1.1); Prothrombin Time 12.6 SEC (10.9-12.4)
[2024-06-14 15:06] LABS: Partial Thromboplastin Time 29.8 SEC (26.0-36.8)
[2024-06-14 15:09] LABS: Alanine Aminotransferase 14 U/L (0-31); Albumin Level 4.4 g/dL (3.5-5.0); Alkaline Phosphatase 59 U/L (39-117); Anion Gap 9 (12-20); Aspartate Amino Transferase 13 U/L (5-31); Bilirubin Total 0.8 mg/dL (0.0-1.0); Blood Urea Nitrogen 10 mg/dL (9-16); Calcium 9.6 mg/dL (8.4-10.2); Carbon Dioxide 32 mmol/L (22-29); Chloride 100 mmol/L (96-108); Creatinine Clr Calc Pharmacy 67.1; Estimated Glomerular Filt Rate > 60; Glucose Random 106 mg/dL (60-115); Potassium 3.3 mmol/L (3.3-5.1); Sodium 138 mmol/L (135-145); Total Protein 7.2 g/dL (6.5-8.0)
[2024-06-14 18:16] VITALS: BP 156/72; PULSE 105; RESP 18; O2SAT 97
[2024-06-14 21:26] VITALS: BP 126/54; PULSE 77; RESP 18; TEMP 36.9; O2SAT 98
[2024-06-14 23:21] LABS: Glucose, Whole Blood 126 mg/dL (60-115)
[2024-06-14] MEDS: Amoxicillin/Potassium Clav 875 MG TABLET PO (23:47)
[2024-06-14 23:48] VITALS: BP 147/70; PULSE 84; RESP 16; TEMP 36.9; O2SAT 99
--- NOTE | 2024-06-15 00:02 | PC.NURSE ---
tramadol held as pt denies pain at this time. educated meds were sent to pharmacy if pt develops pain.
[2024-06-15 00:03] VITALS: BP 147/70; PULSE 84; RESP 16; TEMP 36.9; O2SAT 99
== END 2024-06-15 00:06 | disposition home or self-care (01) ==
PROVIDERS: Physician Assistant; Emergency Provider Internal Medicine; PCP Family Medicine
DX: K57.32 Diverticulitis of large intestine without perforation or abscess without bleeding (principal); R10.32 Left lower quadrant pain; E11.9 Type 2 diabetes mellitus without complications; I10 Essential (primary) hypertension; Z79.84 Long term (current) use of oral hypoglycemic drugs; Z79.899 Other long term (current) drug therapy
CPT/HCPCS: 36415; 74176; 80053; 81003; 82947; 85025; 85610; 85730; 99284; 99285

== ENCOUNTER 2024-06-23 10:06 | Outpatient (REF) | payer OTHER, SELFPAY ==
[2024-06-23 12:48] LABS: Anion Gap 11 (12-20); Blood Urea Nitrogen 13 mg/dL (9-16); Calcium 9.4 mg/dL (8.4-10.2); Carbon Dioxide 28 mmol/L (22-29); Chloride 100 mmol/L (96-108); Estimated Glomerular Filt Rate > 60; Glucose Random 193 mg/dL (60-115); Sodium 135 mmol/L (135-145)
== END 2024-06-23 10:07 | disposition home or self-care (01) ==
LOC: HO.HHCL 10:06
PROVIDERS: Visit Provider Internal Medicine Hypertension Specialist
DX: I10 Essential (primary) hypertension (principal); D35.02 Benign neoplasm of left adrenal gland
CPT/HCPCS: 36415; 80048

== ENCOUNTER 2024-07-25 11:20 | Outpatient (AMB) | payer OTHER, SELFPAY ==
[2024-07-25 11:25] VITALS: BP 152/92; PULSE 97; O2SAT 97; BMI 31.9
--- NOTE | 2024-07-25 11:25 | HO.NEPHOV_ITS ---
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 Ground Equipment Mechanic Required: Yes Ground Equipment Mechanic Name: Andrzej [id number] Accompanied by: ABLE BODIED WATCHMAN Allergies hydrocodone [HYDROCODONE] Allergy (Unknown, Verified 07/25/24 11:28) UNKNOWN levofloxacin [LEVOFLOXACIN] Allergy (Unknown, Verified 07/25/24 11:28) Rash metronidazole [METRONIDAZOLE] Allergy (Unknown, Verified 07/25/24 11:28) UNK promethazine [PROMETHAZINE] Allergy (Unknown, Verified 07/25/24 11:28) Rash Codeine Allergy (Unknown, Uncoded 11/26/22 14:53) swelling/ itching/ hives dye contrast Allergy (Unknown, Uncoded 11/26/22 14:53) red skin Hydrocodone-Acetaminophen Allergy (Unknown, Uncoded 11/26/22 14:53) rash Medication List - Last Reconciled 07/25/24 by Tate Gracia MD amoxicillin-pot clavulanate 875-125 mg 1 tab PO BID atorvastatin 40 mg PO DAILY chlorthalidone 25 mg PO DAILY clopidogrel 75 mg PO DAILY cyanocobalamin (vitamin B-12) 500 mcg PO DAILY cyclobenzaprine 10 mg PO TID PRN hydroxyzine pamoate 25 mg PO DAILY PRN lorazepam 1 mg PO BID PRN losartan 100 mg PO DAILY metformin ER 500 mg PO DAILY metoprolol succinate ER 100 mg PO DAILY pantoprazole (Protonix) 40 mg PO DAILY tramadol 50 mg PO Q6H PRN HPI Comments Details: Che is a pleasant 73-year-old woman with a history of hypertension requiring 3 antihypertensive agents. She has a left adrenal adenoma. She was seen by Dr. Flores in 2020 for the same issue. As per records ,MRI of the abdomen 03/31/2005 showed: MRI of the abdomen is consistent with 1.5 cm left adrenal cortical adenoma probably nonhyperfunctioning adenoma. CT abdomen from 04/18/2007 revealed: 1.5 cm left adrenal mass. She tells me that initially the adenoma was noted in 1995 in [place]. This size has been holding steady, over the past 25 years. It is unclear if she underwent any biochemical workup. Today she has no new complaints. She has generalized body pain which she attributes to fibromyalgia. No shortness of breath. No palpitations. No unexplained sweating. No weight loss or weight gain. No urinary symptoms. All other systems were reviewed 02/09/2024. She underwent workup as outlined. She is having burning sensation in her epigastric region on and off. She is waiting to see ip/mosaic technician [facility] Medical History Diverticulitis Hypertension Surgical History H/O section Family History Father No problems noted. Mother CVD (cardiovascular disease) Social History Alcohol intake: never Patient Tobacco Use Status: Never used Tobacco Physical Exam Vital Signs: Last Vital Signs Pulse 97 07/25/24 11:25 BP 152/92 H 07/25/24 11:25 Pulse Ox 97 07/25/24 11:25 Oxygen Delivery Method Room Air 07/25/24 11:25 BMI result Body Mass Index 31.9 Results Reviewed Nephrology Results: Hgb 12.9 g/dl (12.0-16.0) 06/14/24 WBC 11.4 X10*3/uL (4.8-10.8) H 06/14/24 Plt Count 213 X10*3/uL (160-400) 06/14/24 Sodium 135 mmol/L (135-145) 06/23/24 Potassium 4.0 mmol/L (3.3-5.1) 06/23/24 Chloride 100 mmol/L (96-108) 06/23/24 Carbon Dioxide 28 mmol/L (22-29) 06/23/24 BUN 13 mg/dL (9-16) 06/23/24 Creatinine 0.80 mg/dL (0.5-1.4) 06/23/24 Calcium 9.4 mg/dL (8.4-10.2) 06/23/24 Urine Protein Negative mg/dL (Neg-Trace) 06/14/24 Urine Creatinine 105.61 mg/dL 06/08/24 Assessment & Plan Assessment & Plan (1) Hypertension: Code(s): I10 - Essential (primary) hypertension Category: Medical (2) 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 Based on the prior imaging studies it appears that this cyst has been reasonably stable. Biochemical workup - including plasma renin activity, aldosterone, dopamine, total catecholamines, epinephrine and norepinephrine are in the normal range. The blood pressure is well controlled this time. Renal function is stable. She has no significant alkalosis or hypokalemia. We will continue to monitor the adrenal adenoma. Follow-up CT scan was done on 06/24/24 But radiologist has reported as Normal Adrenals' Need to have the images re-read again We discussed importance of weight loss. She should stay on low-sodium diet. No changes were made to medication today. Encouraged to follow up with her ip/mosaic technician. Ground Equipment Mechanic service was used. 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
[2024-07-25 11:39] VITALS: BP 140/80
== END 2024-07-25 11:45 | disposition home or self-care (01) ==
PROVIDERS: PCP Family Medicine; Visit Provider Internal Medicine Hypertension Specialist
DX: I10 Essential (primary) hypertension (principal); D35.02 Benign neoplasm of left adrenal gland
CPT/HCPCS: 99214

== ENCOUNTER 2024-07-25 12:02 | Outpatient (REF) | payer OTHER, SELFPAY ==
[2024-07-25 13:59] LABS: Appearance Urine Cloudy; Color Urine Yellow; Glucose Urine UA Negative (Negative); Leukocyte Esterase Urine Large (3+) (Negative); Nitrite Urine Negative (Negative); Specific Gravity - Urine <= 1.005 (1.005-1.025); UMIC TRIGGER UA YES; Urine Blood Trace (Negative); Urine Ketones Negative (Negative); Urine Protein Negative (Neg-Trace)
[2024-07-25 14:04] LABS: Bacteria Urine Trace (None Seen); Hyaline Casts Urine 0-2 /LPF (0-2); RBC Urine 0-2 /HPF (0-2); Squamous Epithelial Cell Urine 0-2 /HPF (0-2); WBC Urine >50 /HPF (0-5)
== END 2024-07-25 12:03 | disposition home or self-care (01) ==
LOC: HO.10HDLNP 12:02
PROVIDERS: Visit Provider Internal Medicine Hypertension Specialist
DX: R30.0 Dysuria (principal); I10 Essential (primary) hypertension; D35.02 Benign neoplasm of left adrenal gland; R82.79 Other abnormal findings on microbiological examination of urine
CPT/HCPCS: 81001; 87086; 87088; 87186; 99212

== ENCOUNTER → 2024-09-14 07:26 | Outpatient (BNV) | payer OTHER, SELFPAY | PROVIDERS: Emergency Provider Emergency Medicine; Visit Provider Internal Medicine | DX: R00.2 Palpitations (principal); R94.31 Abnormal electrocardiogram [ECG] [EKG] | CPT/HCPCS: 93010 ==

== ENCOUNTER 2024-11-08 09:09 | Outpatient (REF) | payer OTHER, SELFPAY ==
--- OUTSIDE RECORDS SUMMARY | 2024-11-08 10:04 | XMS_ITS | Encounter Summary ---
Author Organization [facility] Address [address] [place] [address] Care Team Providers Care Diesel Bus Mechanic Name Role Phone Xuan Mckeon MD Primary Care Provider [phone] Yariel Schmid PharmD Unavailable [phone] Encounter Details Date Type Department Care Team (Latest Contact Info) Description 10/10/2024 11:30 AM EST Office Visit [facility] [address], [place] [phone] Xuan Mckeon MD [address], [place] [phone] Primary hypertension (Primary Dx); Type 2 diabetes mellitus without complication, without long-term current use of insulin ([facility]); Dietary counseling; Exercise counseling; Class 1 obesity due to excess calories with serious comorbidity and body mass index (BMI) of 31.0 to 31.9 in adult; Hypokalemia; Anxiety; Dyslipidemia; Allergic reaction, subsequent encounter; History of diverticulitis Social History Tobacco Use Types Packs/Day Years Used Date Smoking Tobacco: Never Passive Smoke Exposure: Never Smokeless Tobacco: Never Alcohol Use Standard Drinks/Week Comments Never 0 (1 standard drink = 0.6 oz pur e alcohol) Depression Answer Date Recorded Patient Health Questionnaire-9 Score 11 05/30/2024 Patient Health Questionnaire-9 Score 11 05/30/2024 Last PHQ-9: Questionnaire Data Not on file 0 05/30/2024 Housing Stability Answer Date Recorded What is your housing situation today? I have jennifer yao 05/30/[address] you li ve. Do you have problems with any of the following? None of the above 05/30/2024 Food Insecurity Answer Date Recorded Within the past 12 months, y ou worried that your food would run out before you got money to buy more: Never True 05/30/2024 Within the past 12 months,th e food you bought just didn't last and you didn't have enough money to get more: Never True Transportation Answer Date Recorded In the past 12 months, has l ack of transportation kept you from medical appts, meetings, work or from getting things needed for daily living? No 05/30/2024 Utilities Answer Date Recorded In the past 12 months, has t he electric, gas, oil or water company threatened to shut off services in your home? No 05/30/2024 Depression Answer Date Recorded Patient Health Questionnaire-2 Score 2 05/30/2024 Internet Access Answer Date Recorded Internet Access Q1 Yes 05/30/2024 Internet Access Q2 Not on file 05/30/2024 Comments Unknown Sex and Gender Information Value Date Recorded Sex Assigned at Female 07/06/2022 10:14 AM EDT Legal Sex Female 10:14 AM EDT Gender Identity Female 07/06/2022 10:14 AM EDT Sexual Orientation Choose not to disclose 2021 10:14 AM EDT documented as of this encounter Last Filed Vital Signs Vital Sign Reading Time Taken Comments Blood Pressure 156/90 10/10/2024 11:57 AM EST Pulse 113 10/10/2024 11:45 AM EST Temperature 36.4 ??C (97.5 ??F) 10/10/2024 11:[address] Respiratory Rate 22 10/10/2024 11:45 AM EST Oxygen Saturation 98% 10/10/2024 11:45 AM EST Inhaled Oxygen Concentration - - Weight 76 kg (167 lb 9.6 oz) 10/10/2024 11:45 AM EST Height - - Body Mass Index 31.67 06/27/2024 11:20 AM EDT documented in this encounter Progress Notes * Xuan Mckeon MD - 10/10/2024 11:30 AM EST Subjective Che Weaver is a 74 y.o. female who has diabetes mellitus type 2, hypertension, and hypersensitivity, and patient presents for follow up of chronic conditions. Background: Our last encounter was 09/18/2024. Follow up of ED visit. Patient had nausea, vomiting, and diarrhea. Hypokalemia with K 2.3 mmol/L. Rx KCl 20 mEq bid upon discharge. Patient developed urticaria during the visit, which she attributed to BP monitor cuff. Follow up in 2 days, the urticaria had resolved. Today: Pt reports she took her BP medication this morning. She reports her BP is usually between 140 to sometimes 119. Pt has been experiencing a lot of stress due to taking care of young kids. Pt's A1c was6.9 this morning. She believes she has lost control of her BP due to the anxiety of taking care of her grand kids. Pt rash has not been itching but her hands become discolored. Pt saw an clean out driller and they gave heran EpiPen because she is allergic to maple syrup. Pt notes she does not eat much salt or sugar, butlast night she ate half a migue. The most sugar she gets is from fruits. 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 Pt has been taking potassium supplements. Patient is here with her CHEMICAL TREATMENT OPERATOR. Patient ad her CHEMICAL TREATMENT OPERATOR are discussing about V-care enrollment. Review of Systems Constitutional: Negative for activity change, appetite change and fever. Respiratory: Negative for shortness of breath. Cardiovascular: Negative for chest pain. Objective Vitals: 10/10/24 1145 10/10/24 1157 BP: (!) 163/88 (!) 156/90 Pulse: (!) 113 Resp: 22 Temp: 97.5 ??F (36.4 ??C) TempSrc: Temporal SpO2: 98% Weight: 167 lb 9.6 oz (76 kg) Physical Exam Constitutional: General: She is not in acute distress. Appearance: Normal appearance. She is not ill-appearing. HENT: Head: Normocephalic and atraumatic. Mouth/Throat: Mouth: Mucous membranes are moist. Eyes: Extraocular Movements: Extraocular movements intact. Pupils: Pupils are equal, round, and reactive to light. Cardiovascular: Rate and Rhythm: Normal rate and regular rhythm. Heart sounds: No murmur heard. Pulmonary: Effort: Pulmonary effort is normal. No respiratory distress. Breath sounds: Normal breath sounds. No wheezing or rhonchi. Skin: General: Skin is warm. Neurological: Mental Status: She is alert. Mental status is at baseline. Psychiatric: Mood and Affect: Mood normal. Results: Lab Results Component Value Date NA 135 09/21/2024 K 3.9 09/21/2024 CL 101 09/21/2024 CO2 25 09/21/2024 BUN 10 09/21/2024 CREATININE 0.74 09/21/2024 CRCLCALCPH 67.1 06/14/2024 EGFR >60 09/21/2024 GLUCOSE 205 (H) 09/21/2024 TOTALBILIRUB 0.8 06/14/2024 AST 13 06/14/2024 ALT 14 06/14/2024 TOTPROTEIN 7.2 06/14/2024 ALB 4.4 06/14/2024 ALP 59 06/14/2024 Lab Results Component Value Date TRIG 273 (H) 06/08/2024 CHOL 166 06/08/2024 LDLCHOLCAL 74 06/08/2024 HDL 38 (L) 06/08/2024 Lab Results Component Value Date HGBA1C 6.9 (A) 10/10/2024 MICROALBUR <5.0 06/08/2024 CREATUR 105.61 06/08/2024 MICROALBCREU TNP 06/08/2024 Lab Results Component Value Date WBC 6.2 09/21/2024 HGB 12.4 09/21/2024 HCT 36.3 (L) 09/21/2024 PLT 288 09/21/2024 MCV 91.0 09/21/2024 The 10-year ASCVD risk score (Homer CEBALLOS, et al., 2019) is: 41.7% Values used to calculate the score: Age: 74 years Sex: Female Is Non- : No Diabetic: Yes Tobacco smoker: No Systolic Blood Pressure: 156 mmHg Is BP treated: Yes HDL Cholesterol: 38 mg/dL Total Cholesterol: 166 mg/dL Screening and Health Care Maintenance: PHQ-2/9 Score: Patient Health Questionnaire-9 Score: 11 (05/30/2024 10:30 AM) Patient Health Questionnaire-2 Score: 2 (05/30/2024 10:30 AM) Thoughts that you would be better off or hurting yourself in some way: Not at all (05/30/2024 10:30 AM) TIERA-7 Score: No data recorded Health Maintenance Due Topic Date Due Hepatitis A Vaccines (1 of 2 - Risk 2-dose series) Never done Zoster Vaccines (1 of 2) Never done RSV Patients and Patients Aged 60 years or older (1 - Risk 60-74 years 1-dose series) Never done Hepatitis B Vaccines (1 of 3 - Risk 3-dose series) Never done DTaP/Tdap/Td Vaccines (2 - Td or Tdap) 09/25/2023 COVID-19 Vaccine (3 - 2023- season) 2024 Depression Monitoring (PHQ-9) 11/27/2024 Assessment/Plan Problem List Items Addressed This Visit Anxiety - continue judicious use of lorazepam Dyslipidemia Current medication: Atorvastatin 40 mg at bedtime Last lipid profile: 06/08/24 Pt is recommended to be on high-intensity statin therapy according to guideline. Pt is hesitant to increasing its dose because of its potential side effect. Continue working on lifestyle modifications Check lipid profile and liver function test at least once a year Type 2 diabetes mellitus (CMS/[facility]) - A1C 6.9% on 10/10/24 -continue metformin ER 500 mg daily, consider increasing if glycemic control does not improve with lifestyle modifications. -continue working on lifestyle modifications -Last lipid profile: 06/08/24 -Last microalbumin test: 06/08/24, no microalbuminuria -Last foot exam: 05/30/24 -Last comprehensive eye exam: -IZ: due for COVID booster & Influenza for the season - Ordered Lipid Panel with Reflex to Direct LDL - Ordered Albumin, Random Urine W/Creatinine Relevant Orders POCT glucose manually resulted (Completed) POCT glycosylated hemoglobin (Hgb A1c) (Completed) Lipid Panel with Reflex to Direct LDL Albumin, Random Urine W/Creatinine Primary hypertension - Primary -Goal BP <140/90 per JNC-8, < 130/80 per ACC/AHA -BP not at goal today -Co-managed with property field inspector and PharmD. -pt advised to continue checking BP at home -property field inspector: Dr. Karimi, last visit in 11/26/22; exertional CP. Stress test scheduled -normal Holter monitor and echo -continue working on lifestyle modifications -continue losartan 100 mg daily -continue chlorthalidone 25mg. Consider lowering its dose if recurrent hypokalemia. Or consider KClsupplementation. -continue metoprolol succinate 100 mg daily Previous Treatment: -discontinued HCTZ and replaced chlorthalidone. -d/c Amlodipine d/t leg swelling -Followed by CDTM Program w/ Pharmacist -Will consider 24hr BP monitoring if fluctuating BP -Will check BP in 2 days at the clinic -Pt was advised to monitor her BP at home Obesity Hypokalemia - in a setting of nausea, vomiting, and diarrhea on 09/28/24. K 2.3 mmol/L - on chlorthalidone - completed replacement in Sep 2024 - most recent K was normal Relevant Orders Basic Metabolic Panel Magnesium Allergic reaction -Pt had history of multiple allergies -Pt developed left arm redness, swelling, itchiness, and urticarial rash on her neck and chest on 09/18/24 after her BP was checked with a machine -Pt described itchiness and most likely allergic reaction -Offending agent is unknown -Pt takes benadryl as she usually does for allergic reactions -Patient likely has chronic urticaria. Patient has already been seen and treated by emergency management program specialist. She states she could not complete immunotherapy due to severe allergic reaction. History of diverticulitis - recurrent - most recent episode in Jun 2024. Presented with LLQ pain. CT showed diverticulitis of descending colon. - continue maintaining a good, protective gut microbiome Other Visit Diagnoses Dietary counseling Exercise counseling Allergies Allergen Reactions Ioversol Anaphylaxis Bactrim [Sulfamethoxazole-Trimethoprim] Fluconazole Metronidazole Penicillin G Current Outpatient Medications Medication Instructions Alcohol Swabs (Alcohol Prep) 70 % pads USE TWICE DAILY atorvastatin (Lipitor) 40 MG tablet TAKE 1 TABLET BY MOUTH AT BEDTIME Blood Glucose Monitoring Suppl (ONE TOUCH ULTRA 2) w/Device kit TEST BLOOD SUGAR TWICE DAILY chlorthalidone (HYGROTON) 25 mg, Oral, Every morning clopidogrel (PLAVIX) 75 mg, Oral, Daily cyanocobalamin (Vitamin B-12) 500 MCG tablet TAKE 1 TABLET BY MOUTH EVERY MORNING cyclobenzaprine (Flexeril) 10 MG tablet TAKE 1 TABLET BY MOUTH ONE OR TWO TIMES DAILY DAILY NEEDED FOR MUSCLE SPASMS D3 Super Strength 50 MCG (2000 UT) capsule TAKE 1 CAPSULE BY MOUTH EVERY MORNING fexofenadine (Tanisha) 180 MG tablet TAKE 1 TABLET BY MOUTH EVERY DAY NEEDED FOR ALLERGIES FREESTYLE LITE test strip TEST BLOOD SUGAR TWICE DAILY hydrOXYzine pamoate (Vistaril) 25 MG capsule TAKE 1 CAPSULE BY MOUTH AT BEDTIME NEEDED FOR ITCHING LORazepam (Ativan) 1 MG tablet TAKE 1 TABLET BY MOUTH TWICE DAILY NEEDED FOR ANXIETY losartan (Cozaar) 100 MG tablet TAKE 1 TABLET BY MOUTH EVERY MORNING metFORMIN XR (GLUCOPHAGE-XR) 500 mg, Oral, Every morning metoprolol succinate XL (Toprol XL) 100 MG 24 hr tablet Take 1 tablet by mouth once daily at bedtime pantoprazole (PROTONIX) 40 mg, Oral, Daily Systane 0.4-0.3 % solution INSTILL 1 DROP IN EACH EYE NEEDED TRUEplus Lancets 33G misc TEST BLOOD SUGAR TWICE DAILY Follow-up: 3 months or sooner if any problem arises. Scribe Attestation: IShannon, am serving as a scribe to document services personally performed by Xuan Mckeon MD, based on the patient's response to questions by provider and provides statements to me. documented in this encounter Miscellaneous Notes * Assessment & Plan Note - Xuan Mckeon MD - 10/17/2024 10:47 AM ESTAssociated Problem(s): History of diverticulitis - recurrent - most recent episode in Jun 2024. Presented with LLQ pain. CT showed diverticulitis of descending colon. - continue maintaining a good, protective gut microbiome * Assessment & Plan Note - Xuan Mckeon MD - 10/17/2024 10:44 AM ESTAssociated Problem(s): Allergic reaction -Pt had history of multiple allergies -Pt developed left arm redness, swelling, itchiness, and urticarial rash on her neck and chest on 09/18/24 after her BP was checked with a machine -Pt described itchiness and most likely allergic reaction -Offending agent is unknown -Pt takes benadryl as she usually does for allergic reactions -Patient likely has chronic urticaria. Patient has already been seen and treated by emergency management program specialist. She states she could not complete immunotherapy due to severe allergic reaction. * Assessment & Plan Note - Xuan Mckeon MD - 10/17/2024 10:41 AM ESTAssociated Problem(s): Dyslipidemia Current medication: Atorvastatin 40 mg at bedtime Last lipid profile: 06/08/24 Pt is recommended to be on high-intensity statin therapy according to guideline. Pt is hesitant to increasing its dose because of its potential side effect. Continue working on lifestyle modifications Check lipid profile and liver function test at least once a year * Assessment & Plan Note - Xuan Mckeon MD - 10/17/2024 10:37 AM ESTAssociated Problem(s): Anxiety - continue judicious use of lorazepam * Assessment & Plan Note - Shannon Lambert MA - 10/10/2024 7:01 PM ESTAssociated Problem(s): Hypokalemia - in a setting of nausea, vomiting, and diarrhea on 09/28/24. K 2.3 mmol/L - on chlorthalidone - completed replacement in Sep 2024 - most recent K was normal * Assessment & Plan Note - Shannon Lambert MA - 10/10/2024 7:00 PM ESTAssociated Problem(s): Primary hypertension -Goal BP <140/90 per JNC-8, < 130/80 per ACC/AHA -BP not at goal today -Co-managed with property field inspector and PharmD. -pt advised to continue checking BP at home -property field inspector: Dr. Karimi, last visit in 11/26/22; exertional CP. Stress test scheduled -normal Holter monitor and echo -continue working on lifestyle modifications -continue losartan 100 mg daily -continue chlorthalidone 25mg. Consider lowering its dose if recurrent hypokalemia. Or consider KClsupplementation. -continue metoprolol succinate 100 mg daily Previous Treatment: -discontinued HCTZ and replaced chlorthalidone. -d/c Amlodipine d/t leg swelling -Followed by CDTM Program w/ Pharmacist -Will consider 24hr BP monitoring if fluctuating BP -Will check BP in 2 days at the clinic -Pt was advised to monitor her BP at home * Assessment & Plan Note - Shannon Lambert MA - 10/10/2024 7:00 PM ESTAssociated Problem(s): Type 2 diabetes mellitus ([facility]) - A1C 6.9% on 10/10/24 -continue metformin ER 500 mg daily, consider increasing if glycemic control does not improve with lifestyle modifications. -continue working on lifestyle modifications -Last lipid profile: 06/08/24 -Last microalbumin test: 06/08/24, no microalbuminuria -Last foot exam: 05/30/24 -Last comprehensive eye exam: -IZ: due for COVID booster & Influenza for the season - Ordered Lipid Panel with Reflex to Direct LDL - Ordered Albumin, Random Urine W/Creatinine documented in this encounter Plan of Treatment Upcoming Encounters Date Type Department Care Team (Late st Contact Info) Description 12/05/2024 1:30 PM EDT Office Visit [facility] [address] [place] [address] Rodrigo Perez DDS [address] [place] [address] 01/11/2025 10:15 AM EDT Office Visit [facility] [address] [place] [address] Xuan Mckeon MD [address] [place] [address] 02/02/2025 11:30 AM EDT Medication Management [facility] [address] [place] [address] Yariel Schmid PharmD [address] [place] [address] Scheduled Orders Name Type Priority Associated Diagnoses Orde r Schedule Basic Metabolic Panel Lab Routine Hypokalemia Expected: 10/10/2024 (Approximate), Expires: 10/10/2025 Magnesium Lab Routine Hypokalemia Expected: 10/10/2024 (Approximate), Expires: 10/10/2025 Lipid Panel with Reflex to Direct LDL Lab Routine Type 2 diabetes mellitus without complication, without long-term current use of insulin ([facility]) Ordered: 10/10/2024 Albumin, Random Urine W/Creatinine Lab Routine Type 2 diabetes mellitus without complication, without long-term current use of insulin (CMS/HCC) Expected: 10/10/2024 (Approximate), Expires: 10/10/2025 documented as of this encounter Goals Goal Patient Goal Type Associated Problems Recent Progress Patient-Stated? Author Blood Pressure < 140/90 Blood Pressure 156/90( 025 11:57 AM EST) No Yariel Schmid, Leelee documented as of this encounter Procedures Procedure Name Priority Date/Time Associated Diagnosis Comments POCT GLYCOSYLATED HEMOGLOBIN (HGB A1C) Routine 10/10/2024 11:58 AM EST Type 2 diabetes mellitus without complication, without long-term current use of insulin ([facility]) POCT GLUCOSE Routine 10/10/2024 11:46 AM EST Type 2 diabetes mellitus without complication, without long-term current use of insulin ([facility]) documented in this encounter Results * (ABNORMAL) POCT glycosylated hemoglobin (Hgb A1c) (10/10/2024 11:58 AM EST) Hemoglobin A1C 6.9(A) 4.0 - 6.0 % QC Media Lot # [id number] Lot# Expiration Date , 6 Blood Capillary blood specimen / Unknown 10/10/2024 11:58 AM EST Xuan Mckeon MD POINT OF CARE TEST ENTER/EDIT OR DERABLES Final Result * POCT glucose manually resulted (10/10/2024 11:46 AM EST) Glucose Blood, POC 158 60 - 200 mg/dL QC Media Lot # [id number] Lot# Expiration Date Blood Capillary blood specimen / Unknown 10/10/2024 11:46 AM EST Xuan Mckeon MD POINT OF CARE TEST ENTER/EDIT OR DERABLES Final Result documented in this encounter Visit Diagnoses Diagnosis Primary hypertension- Primary Unspecified essential hypertension Type 2 diabetes mellitus without complication, without long-term current use of insulin ([facility]) Dietary counseling Dietary surveillance and counseling Exercise counseling Class 1 obesity due to excess calories with serious comorbidity and body mass index (BMI) of 31.0 to 31.9 in adult Hypokalemia Hypopotassemia Anxiety Anxiety state, unspecified Dyslipidemia Other and unspecified hyperlipidemia Allergic reaction, subsequent encounter History of diverticulitis documented in this encounter Additional Health Concerns Assessment Noted Time PHQ-9 Depression Total Score: 11 024 10:30 AM EDT documented as of this encounter Care Teams Diesel Bus Mechanic Relationship Specialty Start Date End Date Xuan Mckeon MD [address] [place] [address] PCP - General Family Medicine 09/20/20 Yariel Schmid, CristóbalD [address] [place] [address] Pharmacist Internal Medicine 11/23/22 documented as of this encounter
--- OUTSIDE RECORDS SUMMARY | 2024-11-08 10:04 | XMS_ITS | Encounter Summary ---
Author Organization [facility] Address [address] [facility] [place] [address] Care Team Providers Care Abalone Sheller Name Role Phone Xuan Mckeon MD Primary Care Provider [phone] Yariel Schmid PharmD Unavailable [phone] Reason for Referral * Consultation (Routine) - Closed Specialty Diagnoses / Procedures Referred By Contac t Referred To Contact Family Medicine Diagnoses Dermatitis Xuan Mckeon MD [address] [place] [address] Phone: tel: fax: Referral ID Status Reason Start Date Expiration Date V isits Requested Visits Authorized [id number] Closed Specialty Services Required 12/24/2023 12/23/2024 1 1 Encounter Details Date Type Department Care Team (Late st Contact Info) Description 12/24/2023 Orders Only [facility] [address] [place], [place] [phone] Xuan Mckeon MD [address] [place], [place] [phone] Dermatitis (Primary Dx) Social History Tobacco Use Types Packs/Day Years Used Date Smoking Tobacco: Never Passive Smoke Exposure: Never Smokeless Tobacco: Never Alcohol Use Standard Drinks/Week Comments Never 0 (1 standard drink = 0.6 oz pur e alcohol) Depression Answer Date Recorded Patient Health Questionnaire-9 Score 4 12/17/2022 Housing Stability Answer Date Recorded What is your housing situation today? I have jennifer yao 06/23/[address] you li ve. Do you have problems with any of the following? None of the above 06/23/2023 Food Insecurity Answer Date Recorded Within the past 12 months, y ou worried that your food would run out before you got money to buy more: Never True 06/23/2023 Within the past 12 months,th e food you bought just didn't last and you didn't have enough money to get more: Never True Transportation Answer Date Recorded In the past 12 months, has l ack of transportation kept you from medical appts, meetings, work or from getting things needed for daily living? No 06/23/2023 Utilities Answer Date Recorded In the past 12 months, has t he electric, gas, oil or water company threatened to shut off services in your home? No 06/23/2023 Depression Answer Date Recorded Patient Health Questionnaire-2 Score 2 12/17/2022 Comments Unknown Sex and Gender Information Value Date Recorded Sex Assigned at Female 07/06/2022 10:14 AM EDT Legal Sex Female 10:14 AM EDT Gender Identity Female 07/06/2022 10:14 AM EDT Sexual Orientation Choose not to disclose 2021 10:14 AM EDT documented as of this encounter Plan of Treatment Upcoming Encounters Date Type Department Care Team (Late st Contact Info) Description 12/05/2024 1:30 PM EDT Office Visit [facility] [address] [place] [phone] Rodrigo Perez DDS [address] [place] [phone] 01/11/2025 10:15 AM EDT Office Visit [facility] [address] [place] [phone] Xuan Mckeon MD [address] [place] [phone] 02/02/2025 11:30 AM EDT Medication Management [facility] [address] [place] [phone] Yariel Schmid, PharmD [address] [place] [phone] Scheduled Referrals Name Type Priority Associated Diagnoses Orde r Schedule Referral to [facility] Adult Outpatient Referral Routine Dermatitis Expected: 12/24/2023 (Approximate), Expires: 12/23/2024 documented as of this encounter Goals Goal Patient Goal Type Associated Problems Recent Progress Patient-Stated? Author Blood Pressure < 140/90 Blood Pressure 156/90( 025 11:57 AM EST) No Yariel Schmid, PharmD documented as of this encounter Visit Diagnoses Diagnosis Dermatitis- Primary Contact dermatitis and other eczema, due to unspecified cause documented in this encounter Additional Health Concerns Assessment Noted Time PHQ-9 Depression Total Score: 4 12/18/19 23 10:48 AM EDT documented as of this encounter Care Teams Abalone Sheller Relationship Specialty Start Date End Date Xuan Mckeon MD [address] [place] [address] PCP - General Family Medicine 09/20/20 Yariel Schmid, PharmD [address] [place] [address] Pharmacist Internal Medicine 11/23/22 documented as of this encounter
--- OUTSIDE RECORDS SUMMARY | 2024-11-08 10:04 | XMS_ITS | Encounter Summary ---
Author Organization [employer] Address [address] [place] [address] Care Team Providers Care Dipper And Baker Name Role Phone Xuan Mckeon MD Primary Care Provider [phone] Yariel Schmid PharmD Unavailable [phone] Encounter Details Date Type Department Care Team (Late st Contact Info) Description 12/06/2023 Orders Only [facility] [address] [place], [place] [phone] Xuan Mckeon MD [address] [place], [place] [phone] Social History Tobacco Use Types Packs/Day Years [...] Description 12/05/2024 1:30 PM EDT Office Visit [facility] [address] [place] [phone] Rodrigo Perez DDS [address] [place] [phone] 01/11/2025 10:15 AM EDT Office Visit [facility] [address] [place] [phone] Xuan Mckeon MD [address] [place] [phone] 02/02/2025 11:30 AM EDT Medication Management [facility] [address] [place] [phone] Yariel Schmid PharmD [address] [place] [phone] documented as of this encounter Goals Goal Patient Goal Type Associated Problems Recent Progress Patient-Stated? Author Blood Pressure < 140/90 Blood Pressure 156/90( 025 11:57 AM EST) No Yariel Schmid PharmSydnee documented as of this encounter Visit Diagnoses Not on filedocumented in this encounter Additional Health Concerns Assessment Noted Time PHQ-9 Depression Total Score: 4 12/18/19 23 10:48 AM EDT documented as of this encounter Care Teams Dipper And Baker Relationship Specialty Start Date End Date Xuan Mckeon MD [address] [place] [phone] PCP - General Family Medicine 09/20/20 Yariel Schmid, CristóbalD [address] [place] [phone] Pharmacist Internal Medicine 11/23/22 documented as of this encounter
--- OUTSIDE RECORDS SUMMARY | 2024-11-08 10:04 | XMS_ITS | Clinical Summary ---
Author Organization [employer] Address [address] [facility] [address] [place] [address] Care Team Providers Care Infection Prevention Specialist Name Role Phone Xuan Mckeon MD Primary Care Provider [phone] Yariel Schmid PharmD Unavailable [phone] Allergies Active Allergy Reactions Criticality Noted Date Comments Sulfamethoxazole-Trimethoprim 2022 Fluconazole 12/29/2018 Ioversol Anaphylaxis High 07/15/2022 Metronidazole 12/30/2018 Penicillin G 01/15/2021 Medications Blood Glucose Monitoring Suppl (ONE TOUCH ULTRA 2) w/Device kit TEST BLOOD SUGAR TWICE DAILY 01/03/20 22 Active clopidogrel (Plavix) 75 MG tablet Take 75 mg by mouth in the morning. 07/07/20 22 Active Systane 0.4-0.3 % solution INSTILL 1 DROP IN EACH EYE NEEDED 03/29/20 23 Active Alcohol Swabs (Alcohol Prep) 70 % padsIndications: Type 2 diabetes mellitus without complication, without long-term current use of insulin ([facility]) USE TWICE DAILY 100 each 11 10/18/19 24 Active losartan (Cozaar) 100 MG tablet TAKE 1 TABLET BY MOUTH EVERY MORNING 90 tablet 3 11/25/19 24 Active metFORMIN XR (Glucophage-XR) 500 MG 24 hr tablet TAKE 1 TABLET BY MOUTH EVERY MORNING 90 tablet 3 06/05/20 24 Active metoprolol succinate XL (Toprol XL) 100 MG 24 hr tabletIndication s:Primary hypertension Take 1 tablet by mouth once daily at bedtime 90 tablet 3 06/28/20 24 Active pantoprazole (ProtoNix) 40 MG EC tablet TAKE 1 TABLET BY MOUTH EVERY DAY 90 tablet 07/04/20 24 Active fexofenadine (Tanisha) 180 MG tabletIndication s:Urticaria TAKE 1 TABLET BY MOUTH EVERY DAY NEEDED FOR ALLERGIES 90 tablet 07/06/20 24 Active chlorthalidone (Hygroton) 25 MG tabletIndication s:Primary hypertension TAKE 1 TABLET BY MOUTH EVERY MORNING 90 tablet 3 08/28/20 24 Active FREESTYLE LITE test stripIndications :Type 2 diabetes mellitus without complication, without long-term current use of insulin ([facility]) TEST BLOOD SUGAR TWICE DAILY 100 strip 11 08/29/20 24 Active LORazepam (Ativan) 1 MG tabletIndication s:Other specified anxiety disorders TAKE 1 TABLET BY MOUTH TWICE DAILY NEEDED FOR ANXIETY Do not start before September 11, 2024. 56 tablet 5 09/11/19 25 Active TRUEplus Lancets 33G misc TEST BLOOD SUGAR TWICE DAILY 100 each 11 09/15/19 25 Active cyclobenzaprine (Flexeril) 10 MG tabletIndication s:Fibromyalgia TAKE 1 TABLET BY MOUTH ONE OR TWO TIMES DAILY DAILY NEEDED FOR MUSCLE SPASMS 30 tablet 1 09/18/19 25 Active cyanocobalamin (Vitamin B-12) 500 MCG tabletIndication s:Vitamin B12 deficiency TAKE 1 TABLET BY MOUTH EVERY MORNING 90 tablet 3 09/26/19 25 Active atorvastatin (Lipitor) 40 MG tabletIndication s:Dyslipidemia TAKE 1 TABLET BY MOUTH AT BEDTIME 90 tablet 3 10/24/19 25 Active D3 Super Strength 50 MCG (2000 UT) capsuleIndicatio ns:Vitamin deficiency TAKE 1 CAPSULE BY MOUTH EVERY MORNING 90 capsule 3 10/24/19 25 Active hydrOXYzine pamoate (Vistaril) 25 MG capsuleIndicatio ns:Urticaria TAKE 1 CAPSULE BY MOUTH AT BEDTIME NEEDED FOR ITCHING 30 capsule 1 11/03/19 25 Active atorvastatin (Lipitor) 40 MG tabletIndication s:Dyslipidemia TAKE 1 TABLET BY MOUTH AT BEDTIME 90 tablet 3 10/01/19 24 025 Discontinued D3 Super Strength 50 MCG (2000 UT) capsuleIndicatio ns:Vitamin deficiency TAKE 1 CAPSULE BY MOUTH EVERY MORNING 90 capsule 3 10/28/19 24 025 Discontinued hydrOXYzine pamoate (Vistaril) 25 MG capsuleIndicatio ns:Urticaria TAKE 1 CAPSULE BY MOUTH AT BEDTIME NEEDED FOR ITCHING 30 capsule 1 08/28/20 24 025 Discontinued azithromycin (Zithromax) 250 MG tablet Take two tablets on day one followed by one tablet from day two until gone. 6 tablet 10/31/19 25 025 Active Problems Problem Noted Date Diagnosed Date Stroke 10/31/2024 Hypokalemia 09/18/2024 Assessment & Plan (10/17/2024 10:40 AM EST): - in a setting of nausea, vomiting, and diarrhea on 09/28/24. K 2.3 mmol/L - on chlorthalidone - completed replacement in Sep 2024 - most recent K was normal Assessment & Plan (09/18/2024 4:52 PM EST): -Pt has not been taking medication as prescribed -We reviewed the correct instruction -After she completes Potassium Chloride, we will check lab Allergic reaction 09/18/2024 Assessment & Plan (10/17/2024 10:44 AM EST): -Pt had history of multiple allergies -Pt [...] has already been seen and treated by automotive parts specialist. She states she could not complete immunotherapy due to severe allergic reaction. 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 - 07/14/23 Abdominal US hepatic steatosis, stable left hepatic cyst 1.2 x. 1.2 x 1.2 cm. Assessment & Plan (06/14/2023 3:14 PM EDT): - last CT scan in January 2023 showed: No acute intra-abdominal process seen; Moderate constipation with colonic diverticulosis but no diverticulitis; Bilateral extrarenal kidney pelvises and bilateral perinephric stranding but no obstructive radiopaque calculi seen; Benign left adrenal lesion; Left hepatic lobe cyst. - Will repeat US Other hydronephrosis 06/14/2023 Assessment & Plan (11/30/2023 5:12 AM EDT): Abdominal US in January 2022 showed: Left hepatic lobe cyst; Mild hepatic steatosis; Mild right hydronephrosis with no obstructive etiology seen; Small midpole left renal cyst with mild pelvic fullness. Abd/pelvis CT in February 2022 showed: Moderate constipation with colonic diverticulosis but no diverticulitis; Bilateral extrarenal kidney pelvises and bilateral perinephric stranding but no obstructive radiopaque calculi seen; Benign left adrenal lesion; Left hepatic lobe cyst. 07/14/23 Abdominal US hepatic steatosis, stable left hepatic cyst 1.2 x. 1.2 x 1.2 cm. Assessment & Plan (06/14/2023 3:19 PM EDT): Abdominal US in January 2022 showed: Left hepatic lobe cyst; Mild hepatic steatosis; Mild right hydronephrosis with no obstructive etiology seen; Small midpole left renal cyst with mild pelvic fullness. Abd/pelvis CT in February 2023 showed: Moderate constipation with colonic diverticulosis but no diverticulitis; Bilateral extrarenal kidney pelvises and bilateral perinephric stranding but no obstructive radiopaque calculi seen; Benign left adrenal lesion; Left hepatic lobe cyst. Will repeat US to clarify pt's confusion Obesity 06/14/2023 Exertional chest pain 12/17/2022 Assessment & Plan (12/17/2022 11:27 AM EDT): Seen by Medical [employer]ation Professional, Dr. Karimi, on 11/26/22. Reported exertional Cheat Pain Stress Test was ordered -will check status Chronic low back pain 10/04/2022 Assessment & Plan (10/04/2022 5:48 AM EST): Continue judicious use of APAP and cyclobenzaprine Strain of trapezius muscle 09/29/2022 Primary hypertension 09/29/2022 Assessment & Plan (10/10/2024 7:00 PM EST): -Goal BP <140/90 per JNC-8, < 130/80 per ACC/AHA -BP not at goal today -Co-managed with supervisory it specialist and PharmD. -pt advised to continue checking BP at home -supervisory it specialist: Dr. Karimi, last visit in 11/26/22; exertional CP. Stress test scheduled -normal Holter monitor and echo -continue working on lifestyle modifications -continue losartan 100 mg daily -continue chlorthalidone 25mg. Consider lowering its dose if recurrent hypokalemia. Or consider KCl supplementation. -continue metoprolol succinate 100 mg daily Previous Treatment: -discontinued HCTZ and replaced chlorthalidone. -d/c Amlodipine d/t leg swelling -Followed by [facility] w/ Pharmacist -Will consider 24hr BP monitoring if fluctuating BP -Will check BP in 2 days at the clinic -Pt was advised to monitor her BP at home Assessment & Plan (09/19/2024 5:45 PM EST): -Goal BP <140/90 per JNC-8, < 130/80 per ACC/AHA -BP not at goal today -Co-managed with supervisory it specialist and PharmD. -pt advised to continue checking BP at home -supervisory it specialist: Dr. Karimi, last visit in 11/26/22; exertional CP. Stress test scheduled -normal Holter monitor and echo -continue working on lifestyle modifications -continue losartan 100 mg daily -continue chlorthalidone 25mg. Consider lowering its dose if recurrent hypokalemia. Or consider KCl supplementation. -continue metoprolol succinate 100 mg daily Previous Treatment: -discontinued HCTZ and replaced chlorthalidone. -d/c Amlodipine d/t leg swelling -Followed by [facility] Program w/ Pharmacist -Will consider 24hr BP monitoring if fluctuating BP -Will check BP in 2 days at the clinic -Pt was advised to monitor her BP at home Assessment & Plan (05/30/2024 11:02 AM EDT): -Goal BP <140/90 per JNC-8, < 130/80 per ACC/AHA -BP not at goal today -Co-managed with supervisory it specialist and PharmD. -pt advised to continue checking BP at home -supervisory it specialist: Dr. Karimi, last visit in 11/26/22; exertional CP. Stress test scheduled -normal Holter monitor and echo -continue working on lifestyle modifications -continue losartan 100 mg daily -cont chlorthalidone 25mg. -continue metoprolol tartrate 50 mg bid, recommended to switch to succinate if BP is still elevated. Patient home BP is seemingly normal. Will not change at this time. -continue Plavix 75 mg daily Prev Treatment: -discontinued HCTZ and replaced chlorthalidone. -d/c Amlodipine d/t leg swelling -Followed by [facility] Program w/ Pharmacist -Will consider 24hr BP monitoring if fluctuating BP Assessment & Plan (11/30/2023 4:38 AM EDT): - Goal BP <140/90 per JNC-8, < 130/80 per ACC/AHA - co-managed with supervisory it specialist and PharmD. -pt advised to continue checking BP at home -supervisory it specialist: Dr. Karimi, last visit in 11/26/22; exertional CP. Stress test scheduled -normal Holter monitor and echo -continue working on lifestyle modifications -continue losartan 100 mg daily -cont chlorthalidone 25mg. -continue metoprolol tartrate 50 mg bid -continue Plavix 75 mg daily Prev Treatment: -discontinued HCTZ and replaced chlorthalidone. -d/c Amlodipine d/t leg swelling -Followed by [facility] Program w/ Pharmacist -Will consider 24hr BP monitoring if fluctuating BP Assessment & Plan (06/14/2023 3:30 PM EDT): - Goal BP <140/90 per JNC-8, < 130/80 per ACC/AHA - co-managed with supervisory it specialist and PharmD. -pt advised to continue checking BP at home -supervisory it specialist: Dr. Karimi, last visit in 11/26/22; exertional CP. Stress test scheduled -normal Holter monitor and echo -continue working on lifestyle modifications -continue losartan 100 mg daily -cont chlorthalidone 25mg. -continue metoprolol tartrate 50 mg bid -continue Plavix 75 mg daily ?? Prev Treatment: -discontinued HCTZ and replaced chlorthalidone. -d/c Amlodipine d/t leg swelling ?? -Followed by [facility] Program w/ Pharmacist -Will consider 24hr BP monitoring if fluctuating BP Assessment & Plan (12/17/2022 1:58 PM EDT): - Goal BP <140/90 per JNC-8, < 130/80 per ACC/AHA Attributes elevated BP reading to waiting in clinic for a long-period of time -pt advised to continue checking BP at home -supervisory it specialist: Dr. Karimi, last visit in 11/26/22; exertional CP. Stress test scheduled -normal Holter monitor and echo -continue working on lifestyle modifications -continue losartan 100 mg daily -cont chlorthalidone 25mg. -continue metoprolol tartrate 50 mg bid -continue Plavix 75 mg daily Prev Treatment: -discontinued HCTZ and replaced chlorthalidone. -d/c Amlodipine d/t leg swelling -Followed by [facility] Program w/ Pharmacist -Will consider 24hr BP monitoring if fluctuating BP Assessment & Plan (10/04/2022 5:53 AM EST): - Goal BP <140/90 per JNC-8, < 130/80 per ACC/AHA -pt advised to continue checking BP at home -supervisory it specialist: Dr. Karimi, last visit in 07/06/22; concerns for TIA. Prescribed Plavix -normal Holter monitor and echo -continue working on lifestyle modifications -continue losartan 100 mg daily -cont chlorthalidone 25mg. -continue metoprolol tartrate 50 mg bid -continue Plavix 75 mg daily Prev Treatment: -discontinued HCTZ and replaced chlorthalidone. -d/c Amlodipine d/t leg swelling -Followed by [facility] Program w/ Pharmacist -Will consider 24hr BP monitoring if fluctuating BP TIA (transient ischemic attack) 09/29/2022 Assessment & Plan (05/30/2024 11:03 AM EDT): - seen in ED on 07/03/22 - Started on Plavix by supervisory it specialist; ASA was discontinued due to GI bleed - Continue statin, clopidogrel, and losartan - Continue working on lifestyle modification / risk factor management Assessment & Plan (11/30/2023 4:38 AM EDT): - seen in ED on 07/03/22 - Started on Plavix by supervisory it specialist; ASA was discontinued due to GI bleed - Continue statin, clopidogrel, and losartan - Continue working on lifestyle modification / risk factor management Assessment & Plan (12/17/2022 11:23 AM EDT): - seen in ED on 07/03/22 - Started on Plavix by supervisory it specialist; ASA was discontinued due to GI bleed - Continue statin, clopidogrel, and losartan - Continue working on lifestyle modification / risk factor management Assessment & Plan (10/04/2022 5:51 AM EST): - seen in ED on 07/03/22 - Started on Plavix by supervisory it specialist; ASA was discontinued due to GI bleed - Continue statin, clopidogrel, and losartan - Continue working on lifestyle modification / risk factor management Type 2 diabetes mellitus 03/28/2020 Assessment & Plan (10/10/2024 7:00 PM EST): - A1C 6.9% on 10/10/24 -continue metformin [...] LDL - Ordered Albumin, Random Urine W/Creatinine Assessment & Plan (09/19/2024 5:49 PM EST): - A1C 6.9% on 09/18/24 -continue metformin ER 500 mg daily, consider increasing if glycemic control does not improve with lifestyle modifications. -continue working on lifestyle modifications -Last lipid profile: 06/08/24 -Last microalbumin test: 06/08/24, no microalbuminuria -Last foot exam: 05/30/24 -Last comprehensive eye exam: -IZ: due for COVID booster & Influenza for the season Assessment & Plan (05/30/2024 10:49 AM EDT): - A1C 6.9% on 04/26/24 -continue metformin ER 500 mg daily, consider increasing if glycemic control does not improve with lifestyle modifications. -continue working on lifestyle modifications -Last lipid profile: 06/16/23 TC 134; TG 196; HDL 41; LDL 54 -Last microalbumin test: 06/16/23 UACR 5.2 -Last foot exam: 05/30/24 -Last comprehensive eye exam: 07/21/22 No diabetic retinopathy -IZ: due for COVID booster & Influenza for the season Assessment & Plan (11/30/2023 4:43 AM EDT): - A1C 6.5% on 09/29/22,6.9% today, trending up. -continue metformin ER 500 mg daily, consider increasing if glycemic control does not improve with lifestyle modifications. -continue working on lifestyle modifications -Last lipid profile: 06/16/23 TC 134; TG 196; HDL 41; LDL 54 -Last microalbumin test: 06/16/23 UACR 5.2 -Last foot exam: 11/19/21 -Last comprehensive eye exam: 07/21/22 No diabetic retinopathy -IZ: due for COVID booster & Influenza for the season Assessment & Plan (06/14/2023 3:27 PM EDT): - A1C 6.5% on 09/29/22,6.9% today, trending up. -continue metformin ER 500 mg daily, consider increasing if glycemic control does not improve with lifestyle modifications. -continue working on lifestyle modifications ?? -Last lipid profile: 07/13/22 TC 156; TG 241; HDL 41; LDL 82 -Last microalbumin test: 07/13/22 UACR 3 -Last foot exam: 11/19/21 -Last comprehensive eye exam: 07/21/22 No diabetic retinopathy -IZ: due for COVID booster & Influenza for the season Assessment & Plan (12/17/2022 11:23 AM EDT): A1C 6.5% on 09/29/22, improving from 6.8% on 06/29/22 -continue metformin ER 500 mg daily -continue working on lifestyle modifications -Last lipid profile: 07/13/22 TC 156; TG 241; HDL 41; LDL 82 -Last microalbumin test: 07/13/22 UACR 3 -Last foot exam: 11/19/21 -Last comprehensive eye exam: 07/21/22 No diabetic retinopathy -IZ: due for COVID booster & Influenza for the season Assessment & Plan (10/04/2022 5:45 AM EST): A1C 6.5% on 09/29/22, improving from 6.8% on 06/29/22 -continue metformin ER 500 mg daily -continue working on lifestyle modifications -Last lipid profile: 07/13/22 TC 156; TG 241; HDL 41; LDL 82 -Last microalbumin test: 07/13/22 UACR 3 -Last foot exam: 11/19/21 -Last comprehensive eye exam: 07/21/22 No diabetic retinopathy -IZ: due for COVID booster & Influenza for the season Vitamin B12 deficiency (non anemic) 03/28/2020 Varicose veins of both lower extremities 020 Seborrheic psoriasis 09/17/2019 Adrenal incidentaloma 12/28/2018 Assessment & Plan (06/14/2023 3:20 PM EDT): - most recent imaging in February 2023 - benign-appearing left adrenal cyst Glaucoma 11/18/2018 Arthritis of knee 09/01/2018 Assessment & Plan (05/30/2024 11:04 AM EDT): - patient received synvisc x3 to each knee - patient was evaluated by orthopedist and was informed that she is not a surgical candidate Obstructive sleep apnea syndrome 06/16/2018 Anxiety 05/06/2018 Assessment & Plan (10/17/2024 10:37 AM EST): - continue judicious use of lorazepam Assessment & Plan (05/30/2024 10:37 AM EDT): - continue judicious use of lorazepam- continue judicious use of lorazepam Assessment & Plan (11/30/2023 4:45 AM EDT): - continue judicious use of lorazepam- continue judicious use of lorazepam Assessment & Plan (06/14/2023 3:29 PM EDT): - continue judicious use of lorazepam Dyslipidemia 05/06/2018 Assessment & Plan (10/17/2024 10:41 AM EST): Current medication: Atorvastatin 40 mg at bedtime Last lipid profile: 06/08/24 Pt is recommended to be on high-intensity statin therapy according to guideline. Pt is hesitant to increasing its dose because of its potential side effect. Continue working on lifestyle modifications Check lipid profile and liver function test at least once a year Assessment & Plan (05/30/2024 10:37 AM EDT): Current medication: Atorvastatin 40 mg at bedtime Last lipid profile: 06/16/23 TC 134; TG 196; HDL 41; LDL 54 Pt is recommended to be on high-intensity statin therapy according to guideline. Pt is hesitant to increasing its dose because of its potential side effect. Continue working on lifestyle modifications Check lipid profile and liver function test at least once a year Assessment & Plan (11/30/2023 4:44 AM EDT): Current medication: Atorvastatin 40 mg at bedtime Last lipid profile: 06/16/23 TC 134; TG 196; HDL 41; LDL 54 Pt is recommended to be on high-intensity statin therapy according to guideline. Pt is hesitant to increasing its dose because of its potential side effect. Continue working on lifestyle modifications Check lipid profile and liver function test at least once a year Assessment & Plan (06/14/2023 3:28 PM EDT): Current medication: Atorvastatin 40 mg at bedtime Last lipid profile: 07/13/22 TC 156; TG 241; HDL 41; LDL 82 Pt is recommended to be on high-intensity statin therapy according to guideline. Pt is hesitant to increasing its dose because of its potential side effect. Continue working on lifestyle modifications Check lipid profile and liver function test at least once a year Assessment & Plan (01/04/2023 7:13 PM EDT): Current medication: Atorvastatin 40 mg at bedtime Last lipid profile: 07/13/22 TC 156; TG 241; HDL 41; LDL 82 On high-intensity statin therapy Continue working on lifestyle modifications Check lipid profile and liver function test at least once a year Assessment & Plan (10/04/2022 5:47 AM EST): Current medication: Atorvastatin 40 mg at bedtime Last lipid profile: 07/13/22 TC 156; TG 241; HDL 41; LDL 82 On high-intensity statin therapy Continue working on lifestyle modifications Check lipid profile and liver function test at least once a year Fibromyalgia 05/06/2018 Assessment & Plan (05/30/2024 10:37 AM EDT): continue judicious use of cyclobenzaprine -continue diclofenac gel -encourage trying home exercise program Assessment & Plan (11/30/2023 4:42 AM EDT): continue judicious use of cyclobenzaprine -continue diclofenac gel -encourage trying home exercise program Assessment & Plan (06/14/2023 3:21 PM EDT): continue judicious use of cyclobenzaprine -continue diclofenac gel -encourage trying home exercise program Assessment & Plan (12/17/2022 11:22 AM EDT): -continue judicious use of cyclobenzaprine -continue diclofenac gel -encourage trying home exercise program Assessment & Plan (10/04/2022 5:49 AM EST): -continue judicious use of cyclobenzaprine -continue diclofenac gel -encourage trying home exercise program GERD (gastroesophageal reflux disease) 8 Assessment & Plan (10/04/2022 5:55 AM EST): - continue pantoprazole - pt is on Plavix, and omeprazole has a drug interaction. History of diverticulitis 06/22/2011 Overview (10/17/2024): Patient describes 3 episodes, last on treated at [facility] on 04/2012 Assessment & Plan (10/17/2024 10:49 AM EST): - recurrent - most recent episode in Jun 2024. Presented with LLQ pain. CT showed diverticulitis of descending colon. - continue maintaining a good, protective gut microbiome Resolved Problems Problem Noted Date Diagnosed Date Resolved Date History of kidney stones 06/14/202305/2023 Pruritus 12/17/2022 11/30/2023 Assessment & Plan (12/17/2022 1:59 PM EDT): Patient attributes change in the Vitamin B12 tablets -will ask Pharmacist if other B12 tablets is available. Palpitations 05/06/2018 11/30/2023 Encounters Date Type Department Care Team Description 11/02/2024 Refill [facility] [address] [place] [address] Xuan Mckeon MD Urticaria 11/01/2024 Telephone [facility] [address] [facility] [place] [address] Meliza Cleveland RN Paperwork/Forms 10/31/2024 1:00 PM EST Office Visit [facility] [address] [place] [id number] Rodrigo Perez DDS Cerebrovascular accident (CVA), unspecified mechanism (CMS/HCC) (Primary Dx) 10/24/2024 Refill [facility] [address] [place] [address] Xuan Mckeon MD Dyslipidemia; Vitamin deficiency 10/18/2024 Refill [facility] [address] [facility] [place] [address] Xuan Mckeon MD Fibromyalgia 10/10/2024 11:30 AM EST Office Visit [facility] [address] [facility] [place] [address] Xuan Mckeon MD Primary hypertension (Primary Dx); Type 2 diabetes mellitus without complication, without long-term current use of insulin (CMS/HCC); Dietary counseling; Exercise counseling; Class 1 obesity due to excess calories with serious comorbidity and body mass index (BMI) of 31.0 to 31.9 in adult; Hypokalemia; Anxiety; Dyslipidemia; Allergic reaction, subsequent encounter; History of diverticulitis 10/10/2024 Travel 10/05/2024 Telephone [facility] [place] [address] Carla Judge MA chart prep 09/25/2024 Refill [facility] [address] [facility] [place] [address] Xuan Mckeon MD Vitamin B12 deficiency 09/21/2024 Telephone [facility] [place] [address] Nydia Bartlett RN Results 09/20/2024 2:30 PM EST Clinical Support [facility] [address] [facility] [place] [address] Jocelyn Guthrie RN Primary hypertension 09/20/2024 Orders Only [facility] [address] [facility] [place] [address] Xuan Mckeon MD Left lower quadrant abdominal pain (Primary Dx); Diverticulitis 09/20/2024 Travel 09/20/2024 Telephone [facility] [address] [facility] [place] [address] Jocelyn Guthrie, NILDA Appointment Request 09/18/2024 3:30 PM EST Office Visit [facility] [place] [address] Xuan Mckeon MD Primary hypertension (Primary Dx); Hypokalemia; Type 2 diabetes mellitus without complication, without long-term current use of insulin (CMS/HCC); Allergic reaction, initial encounter; Fibromyalgia 09/18/2024 Travel 09/18/2024 Telephone [facility] [place] [address] Meliza Cleveland, RETAIL ADVERTISING ACCOUNT EXECUTIVE Follow-up 09/15/2024 Refill [facility] [address], [place] [address] Xuan Mckeon MD 09/04/2024 Refill [facility] [address], [place] [address] Xuan Mckeon MD Other specified anxiety disorders 09/04/2024 Refill [facility] [address], [place] [address] Xuan Mckeon MD Other specified anxiety disorders 08/28/2024 Refill [facility] [address], [place] [address] Xuan Mckeon MD Type 2 diabetes mellitus without complication, without long-term current use of insulin ([facility]) 08/28/2024 Travel 08/28/2024 Refill [facility] [address] [place] [address] Xuan Mckeon MD Primary hypertension 08/25/2024 Refill [facility] [address] [place] [address] Xuan Mckeon MD Urticaria 08/23/2024 Telephone [facility] [address] [place] [address] Xuan Mckeon MD Appointment Request 08/16/2024 10:00 AM EST Office Visit [facility] [address], [place] [address] Abraham Ferrera DDS Edentulous maxilla (Primary Dx) 08/15/2024 10:30 AM EST Office Visit [facility] [address] [place] [address] Abraham Ferrera DDS Edentulous maxilla (Primary Dx) 08/14/2024 Telephone [facility] [address], [place] [address] Charity Pierce MD No Show 08/10/2024 Telephone [facility] [address] [place] [address] Clotilde Richardson MA DME from [facility] from Last 3 Months Immunizations Name Administration Dates Next Due Influenza High-dose Quadriva lent Preservative Free 06/25/2023,06/01/2022,06/02/2021,05/31 Influenza injectable quadriv alent IIV4 with preservative 06/13/2019,06/01/2018 Influenza, High Dose Seasona l, Preservative Free 05/30/2024 Influenza, IIV3, injectable 07/26/2015,1 09/24/2013,05/19/2013,05/12,08/24/2011 Pneumococcal Conjugate PCV 13 05/04/2019, 016 Pneumococcal Polysaccharide PPSV23 05/31/2020, TD (adult), 2 Lf tetanus tox oid, preservative free, adsorbed 11/05/2001 Tdap 09/25/2013 Social History Tobacco Use Types Packs/Day Years Used Date Smoking Tobacco: Never Passive Smoke Exposure: Never Smokeless Tobacco: Never Tobacco Cessation:Counseling Given: Not Answered Alcohol Use Standard Drinks/Week Comments Never 0 [...] not to disclose 2021 10:14 AM EDT Last Filed Vital Signs Vital Sign Reading [...] 9.6 oz) 10/10/2024 11:45 AM EST Height 154.9 cm (5' 1 ) 06/27/2024 11:20 AM EDT Body Mass Index 31.67 06/27/2024 11:20 AM EDT Plan of Treatment Upcoming Encounters Date Type Department Care Team (Late st Contact Info) Description 12/05/2024 1:30 PM EDT Office Visit [facility] [address] [place] [phone] Rodrigo Perez DDS [address] [place] [address] 01/11/2025 10:15 AM EDT Office Visit [facility] [address] [place] [address] Xuan Mckeon MD [address] [place] [address] 02/02/2025 11:30 AM EDT Medication Management [facility] [address] [place] [address] Yariel Schmid, PharmD [address] [place] [address] Health Maintenance Due Date Last Done Comments CT Colonography 1950 Colonoscopy 1950 Dental X-Ray: Bitewings 1950 FIT 1950 Sigmoidoscopy 1950 Hepatitis A Vaccines (1 of 2 - Risk 2-dose series) 1970 Zoster Vaccines (1 of 2) 2001 Hepatitis B Vaccines (1 of 3 - Risk 3-dose series) 2011 RSV Patients and Patients Aged 60 years or older (1 - Risk 60-74 years 1-dose series) 2011 Dental Oral Exam 07/18/2022 01/14/2022 Dental Prophylaxis 07/27/2022 01/23/2022 DTaP/Tdap/Td Vaccines (2 - Td or Tdap) 09/25/2023 09/25/2013, 11/05/2001 Dental X-Ray: Full Mouth 01/11/2024 01/09/2021 COVID-19 Vaccine ( season) 2024 07/23/2021, 12/18/2020 Depression Monitoring (PHQ-9) 11/27/2024 05/30/2024, 05/30/2024 FOBT 01/11/2025 01/12/2024 Eye Exam 02/23/2025 02/23/2023 Diabetes: Hemoglobin A1C 04/09/2025 0204 025, 09/18/2024, 04/26/2024, Additional history exists Depression Screening 05/30/2025 05/30/2024, 05/30/20 Diabetes: Foot Exam 05/30/2025 05/30/2024, 05/30/2024, 05/30/2024, Additional history exists SDOH Screening 05/30/2025 05/30/2024 Diabetes: Urine Protein Screening 06/08/2025 06/08/2024, 06/16/2023, 07/13/2022, Additional history exists Lipid Panel 06/08/2025 06/08/2024, 06/06, 07/13/2022, Additional history exists Alcohol/Substance Use Screening 09/18/2025 09/18/2024 Tobacco Screening 10/10/2025 10/10/2024 Mammogram 2026 2024, 03/2 12/2021, 05/19/2019, Additional history exists Colorectal Cancer Screening 01/11/2027 FIT DNA/Cologuard 01/11/2027 01/12/2024, 01/03/2024 Pneumococcal Vaccine: 50+ Years Completed 05/31/2020, 05/04/2019, 06/23/2016, Additional history exists Hepatitis C Screening Completed 10/23/2020 Influenza Vaccine Completed 05/30/2024, , 06/01/2022, Additional history exists HIB Vaccines Aged Out No longer eligi ble based on patient's age to complete this topic HPV Vaccines Aged Out No longer eligi ble based on patient's age to complete this topic IPV Vaccines Aged Out No longer eligi ble based on patient's age to complete this topic Meningococcal Vaccine Aged Out No jacqueline natalya eligible based on patient's age to complete this topic RSV under 20 months Aged Out No longe r eligible based on patient's age to complete this topic Rotavirus Vaccines Aged Out No longer eligible based on patient's age to complete this topic Goals Goal Patient Goal Type Associated Problems Recent Progress Patient-Stated? Author Blood Pressure < 140/90 Blood Pressure 156/90( 025 11:57 AM EST) No Yariel Schmid, Leelee Procedures Procedure Name Priority Date/Time Associated Diagnosis Comments CASE PRESENTATION, DETAILED AND EXTENSIVE TREATMENT PLANNING Routine 10/31/2024 1:00 PM EST INTRAORAL - PERIAPICAL FIRST RADIOGRAPHIC IMAGE Routine 10/31/2024 1:00 PM EST PALLIATIVE (EMERGENCY) TREATMENT OF DENTAL PAIN - MINOR PROCEDURE Routine 10/31/2024 1:00 PM EST POCT GLYCOSYLATED HEMOGLOBIN (HGB A1C) Routine 10/10/2024 11:58 AM EST Type 2 diabetes mellitus without complication, without long-term current use of insulin (CMS/HCC) POCT GLUCOSE Routine 10/10/2024 11:46 AM EST Type 2 diabetes mellitus without complication, without long-term current use of insulin (CMS/HCC) SED RATE BY MODIFIED WESTERGREN Routine 09/21/2024 9:16 AM EST Left lower quadrant abdominal pain Diverticulitis C-REACTIVE PROTEIN Routine 09/21/2024 9: 16 AM EST Left lower quadrant abdominal pain Diverticulitis CBC WITH AUTO DIFFERENTIAL Routine 09/21/2024 9:16 AM EST Left lower quadrant abdominal pain Diverticulitis MAGNESIUM Routine 09/21/2024 9:16 AM EST Hypokalemia BASIC METABOLIC PANEL Routine 09/21/2024 9:16 AM EST Hypokalemia POCT GLYCOSYLATED HEMOGLOBIN (HGB A1C) Routine 09/18/2024 4:09 PM EST Type 2 diabetes mellitus without complication, without long-term current use of insulin (CMS/HCC) POCT GLUCOSE Routine 09/18/2024 4:08 PM EST Type 2 diabetes mellitus without complication, without long-term current use of insulin (CMS/HCC) CASE PRESENTATION, DETAILED AND EXTENSIVE TREATMENT PLANNING Routine 08/16/2024 10:00 AM EST 9 REPLACE MISSING OR BROKEN TEETH - COMPLETE DENTURE (EACH TOOTH) Routine 08/16/2024 10:00 AM EST NO CHARGE VISIT Routine 08/15/2024 10:30 AM EST LIPID PANEL WITH REFLEX TO DIRECT LDL Routine 06/08/2024 7:10 AM EDT Dyslipidemia ALBUMIN, RANDOM URINE W/CREATININE Routine 06/08/2024 6:58 AM EDT Type 2 diabetes mellitus without complication, without long-term current use of insulin (CMS/HCC) BI MAMMOGRAM SCREENING TOMOSYNTHESIS BILATERAL Routine 2024 9:15 AM EDT HM FIT DNA/COLOGUARD CANCER SCREENING Routine 01/12/2024 DIABETES EYE EXAM Routine 02/23/2023 PROPHYLAXIS - ADULT Routine 01/23/2022 1 2:00 AM EDT COMPREHENSIVE ORAL EVALUATION - NEW OR ESTABLISHED PATIENT Routine 01/14/2022 12:00 AM EDT PANORAMIC RADIOGRAPHIC IMAGE Routine 01/09/2021 12:00 AM EDT ZZZ HISTORICAL HEPATITIS C AB W/REFL TO HCV RNA, QN, PCR Routine 10/23/2020 8:55 AM EST from Last 3 Months or Most Recently Relevant to Health Maintenance Results * (ABNORMAL) POCT glycosylated hemoglobin (Hgb A1c) (10/10/2024 11:58 AM EST) Only the most recent of2 resultswithin the time period is included. Hemoglobin A1C 6.9(A) 4.0 - 6.0 % QC Media Lot # [id number] Lot# Expiration Date , 6 Blood Capillary blood specimen / Unknown 10/10/2024 11:58 AM EST Xuan Mckeon MD POINT OF CARE TEST ENTER/EDIT OR DERABLES Final Result * POCT glucose manually resulted (10/10/2024 11:46 AM EST) Only the most recent of2 resultswithin the time period is included. Glucose Blood, POC 158 60 - 200 mg/dL QC Media Lot # [id number] Lot# Expiration Date Blood Capillary blood specimen / Unknown 10/10/2024 11:46 AM EST us Xuan Mckeon MD POINT OF CARE TEST ENTER/EDIT OR DERABLES Final Result * (ABNORMAL) CBC auto differential (09/21/2024 9:16 AM EST) White Blood Count 6.2 4.8 - 10.8 X10*3/uL [facility] Red Blood Count 3.99(L) 4.20 - 5.50 X10*6/uL [facility] Hemoglobin 12.4 12.0 - 16.0 g/dl [facility] Hematocrit 36.3(L) 37.0 - 47.0 % [facility] Mean Corpuscular Volume 91.0 80.0 - 98.0 fL [facility] Mean Corpuscular Hemoglobin 31.1 27.0 - 33.0 pg [facility] Mean Corpuscular HGB Conc 34.2 31.0 - 35.0 g/dl [facility] Red Cell Distribution Width 12.5 11.0 - 16.0 % [facility] Platelet Count 288 160 - 400 X10*3/uL [facility] Mean Platelet Volume 10.5 9.4 - 12.3 fL [facility] Neutrophils Percent Auto 70.5 45 - 73 % [facility] Imm Gran Pct Auto 0.3 0.0 - 0.4 % [facility] Lymphocytes Percent Auto 20.0 20 - 40 % [facility] Monocytes Percent Auto 7.1 2 - 11 % [facility] Eosinophils Percent Auto 1.6 0 - 4 % [facility] Basophils Percent Auto 0.5 0 - 2 % [facility] NRBC Pct Auto 0.0 0.0 - 0.2 /100WBC [facility] Neutrophils Absolute Auto 4.3 2.0 - 8.3 x10*3/uL [facility] Imm Gran Abs Auto 0.02 0.00 - 0.03 X10*3/uL [facility] Lymphocytes Absolute Auto 1.2 1.2 - 4.9 X10*3/uL [facility] Monocytes Absolute Auto 0.4 0.1 - 1.2 X10*3/uL [facility] Eosinophils Absolute Auto 0.1 0.0 - 0.4 X10*3/uL [facility] Basophils Absolute Auto 0.0 0.0 - 0.2 X10*3/uL [facility] NRBC Abs Auto 0.000 0.0 - 0.012 X10*3/uL [facility] Blood Venous blood specimen / Unknown 09/21/2024 9:16 AM EST 09/21/2024 11:12 AM EST us Xuan Mckeon MD LAB BLOOD ORDERABLES Final Resul t [facility] [address] [place] [phone] [phone] * (ABNORMAL) Sed Rate by Modified Westergren (09/21/2024 9:16 AM EST) Erythrocyte Sedimentation Rate 25(H) 0 - 20 MM/HR [facility] Comment:Patients with polycy themia and many hemoglobin abnormalitiesmay have depressed sed rates whereas patients with anemiamay have elevated sed rates. Blood Venous blood specimen / Unknown 09/21/2024 9:16 AM EST 09/21/2024 11:12 AM EST us Xuan Mckeon MD LAB BLOOD ORDERABLES Final Resul t Performing Organization Address [facility] Co de Phone Number [facility] [address] [place] [phone] * (ABNORMAL) C-reactive Protein (09/21/2024 9:16 AM EST) C Reactive Protein 0.96(H) < or = 0.50 mg/dL [facility] Blood Venous blood specimen / Unknown 09/21/2024 9:16 AM EST 09/21/2024 11:12 AM EST us Xuan Mckeon MD LAB BLOOD ORDERABLES Final Resul t Performing Organization Address City/[facility] Co de Phone Number [facility] [address] [place] [phone] [phone] * Magnesium (09/21/2024 9:16 AM EST) Magnesium 1.7 1.6 - 2.6 mg/dL [facility] Blood Venous blood specimen / Unknown 09/21/2024 9:16 AM EST 09/21/2024 11:12 AM EST us Xuan Mckeon MD LAB BLOOD ORDERABLES Final Resul t [facility] [address] [place] [phone] * (ABNORMAL) Basic Metabolic Panel (09/21/2024 9:16 AM EST) Sodium 135 135 - 145 mmol/L [facility] Potassium 3.9 3.3 - 5.1 mmol/L [facility] Chloride 101 96 - 108 mmol/L [facility] Carbon Dioxide 25 22 - 29 mmol/L [facility] Anion Gap 13 12 - 20 [facility] Urea Nitrogen (BUN) 10 9 - 16 mg/dL [facility] Creatinine, Serum 0.74 0.5 - 1.4 mg/dL [facility] Estimated Glomerular Filt Rate >60 [facility] Comment:Chronic Kidney Disea se: Estimated GFR < 60 mL/min/[id number] Kidney Disease: Estimated GFR < 15 mL/min/1.73m2 Glucose 205(H) 60 - 115 mg/dL [facility] Calcium 9.3 8.4 - 10.2 mg/dL [facility] Blood Venous blood specimen / Unknown 09/21/2024 9:16 AM EST 09/21/2024 11:12 AM EST us Xuan Mckeon MD LAB BLOOD ORDERABLES Final Resul t [facility] [address] [place] [phone] * (ABNORMAL) Lipid Panel with Reflex to Direct LDL (06/08/2024 7:10 AM EDT) Triglycerides 273(H) <150 mg/dL [facility] Comment:Desirable Triglyceri de: less than 150 mg/dLBorderline High Triglyceride 150-199 mg/dLHigh Triglyceride: 200-499 mg/dLVery High Triglyceride: greater than or equal to 5OO mg/dL Cholesterol 166 <200 mg/dL [facility] Comment:Desirable Cholestero l: less than 200 mg/dLBorderline High Cholesterol: 200-239 mg/dLHigh Cholesterol: greater than 239 mg/dL LDL Cholesterol Calculated 74 <100 mg/dL [facility] Comment:Desirable LDL: less than 100 mg/dLNear Optimal/Above Optimal LDL: 110- 129 mg/dLBorderline High LDL: 130-159 mg/dLHigh LDL: 160-189 mg/dLVery High LDL: greater than or equal to 190 mg/dL HDL Cholesterol 38(L) >40 mg/dL [facility] Comment:Desirable HDL: great er than 40 mg/dL Note: This HDL assay may give artificially low results in patients with liver disease. Blood 06/08/2024 7:10 AM EDT 06/08/2024 7:10 AM EDT Xuan Mckeon MD LAB BLOOD ORDERABLES Final Resul t Performing Organization Address [facility] de Phone Number [facility] [address] [place] [phone] * Albumin, Random Urine W/Creatinine (06/08/2024 6:58 AM EDT) Creatinine, Urine 105.61 mg/dL [facility] Microalbumin Urine <5.0 mg/L [facility] Microalbum Creatinine Ratio Ur TNP <30 ug/mg cr [facility] Comment:Unable to calculate albumin/creatinine ratio due to lowmicroalbumin or creatinine result. Urine 06/08/2024 6:58 AM EDT 06/08/2024 7:29 AM EDT Xuan Mckeon MD LAB URINE ORDERABLES Final Resul t Performing Organization Address [facility] Co de Phone Number [facility] [address] [place] [address] [phone] * BI Mammogram Screening Tomosynthesis Bilateral (2024 9:15 AM EDT) Anatomical Region Laterality Modality Breast Bilateral Mammography 2024 9:15 AM EDT Narrative 06/15/2024 7:13 PM EDT ? [facility] ? [address] ?[place] [address] ? Mammography Report ? Signed ? Patient: Gabyerica Weaver,Che ?MR ?? #: [id number] ? : 1950 ?Acct:[id number] ? Age/Sex: 74 / F ?ADM Date: 06/06/24 ? Loc: HO.MAMMO ? Attending Dr: Xuan Mckeon MD ? Ordering Physician: Xuan Mckeon MD ?Results: 1Negative ? Date of Service: 06/06/24 ?Follow Up: 1 Year From Orig ?? inal Mammogram ? Procedure(s): MM tomosynthesis screening BI ?? Accession Number(s): [id number] ? cc: Xuan Mckeon MD ? EXAMINATION: ?? MM SCREENING DIGITAL BREAST TOMOSYNTHESIS, BILATERAL ? CLINICAL INFORMATION: ? Screening. Asymptomatic. ? COMPARISON: ?? Mammography: Comparison is made with available priors ? TECHNIQUE: ?? Digital breast mammography with tomosynthesis is performed in both the ?? craniocaudal and mediolateral oblique views along with computer-aided ?? detection (CAD). ? FINDINGS: ?? There are scattered areas of fibroglandular density (ACR BI-RADS breast ?? composition Category b). ? There are no significant masses, abnormal calcifications, or other ?? abnormalities. ? MM/MM tomosynthesis screening BI ?? IMPRESSION: ?? No mammographic evidence of malignancy. ? ASSESSMENT: ? BI-RADS BI-RADS 1 - Negative ? RECOMMENDATION: ?? Routine annual mammography screening. ? 1 year F/U ? This examination should not preclude the clinical evaluation of a ?? suspicious palpable abnormality. ? This patient's information was entered into a reminder system with a ?? target due date for their next mammogram. ? Electronically signed by: ??Urvashi Blanton DO ??06/15/2024 07:10 PM EDT ? Dictated By: ?Urvashi Blanton DO ? Signed By: ?<Electronically signed by Urvashi Blanton, DO in OV> ? /06/290 ? DD/ 4 ? TD/TT: 06/06/24919 ? Junior Sales Assistant: ? Procedure Note Yuri, Image - 06/15/2024 [facility] [address] [place] [address] Mammography Report Signed Patient: Jamal PersoncaMR #: [id number] : 1950cct:[id number] Age/Sex: 74 / FADM Date: 06/06/24 Loc: [facility] Attending Dr: Xuan Mckeon MD Ordering Physician: Xuan Mckeon MDResults: 1Negative Date of Service: 06/06/24Follow Up: 1 Year From Orig inal Mammogram Procedure(s): MM tomosynthesis screening BI Accession Number(s): [id number] cc: Xuan Mckeon MD EXAMINATION: MM SCREENING DIGITAL BREAST TOMOSYNTHESIS, BILATERAL CLINICAL INFORMATION: Screening. Asymptomatic. COMPARISON: Mammography: Comparison is made with available priors TECHNIQUE: Digital breast mammography with tomosynthesis is performed in both the craniocaudal and mediolateral oblique views along with computer-aided detection (CAD). FINDINGS: There are scattered areas of fibroglandular density (ACR BI-RADS breast composition Category b). There are no significant masses, abnormal calcifications, or other abnormalities. MM/MM tomosynthesis screening BI IMPRESSION: No mammographic evidence of malignancy. ASSESSMENT: BI-RADS BI-RADS 1 - Negative RECOMMENDATION: Routine annual mammography screening. 1 year F/U This examination should not preclude the clinical evaluation of a suspicious palpable abnormality. This patient's information was entered into a reminder system with a target due date for their next mammogram. Electronically signed by: Urvashi Blanton DO 06/15/2024 07:10 PM EDT Dictated By: Urvashi Blanton DO Signed By: <Electronically signed by Urvashi Blanton DO in OV> 06/15/241909 DD/ 4 TD/TT: 06/06/24919 Junior Sales Assistant: Xuan Mckeon MD IM BI PROCEDURES Edited Result - Final * FIT DNA/Cologuard Cancer Screening (01/12/2024) Cologuard Cancer Screen Negative Stool Historical Provider HEALTH MAINTENANCE Final Result * Hm Diabetes Eye Exam (02/23/2023) Pathologist [facility] Eye Exam Normal Normal, BIRADS 0 , BIRADS 1 , BIRADS 2, BIRADS 3 , BIRADS 4+ 02/23/2023 Historical Provider HEALTH MAINTENANCE Final Result * HEPATITIS C AB W/REFL TO HCV RNA, QN, PCR (10/23/2020 8:55 AM EST) HEPATITIS C ANTIBODY NON-REACT ADAMA NON-REACT ADAMA [facility] INDEX 0.01 <1.00 [facility] Comment: ?? HCV antibody was non-reactive. There is no laboratory ?? evidence of HCV infection. ?? In most cases, no further action is required. However, if recent HCV exposure is suspected, a test for HCV RNA (test code 24483) is suggested. ?? For additional information please refer to http://education.Aureliant/faq/CCN20s8 (This link is being provided for informational/ educational purposes only.) ?? 10/23/2020 8:55 AM EST us Xuan Mckeon MD HISTORICAL/NON ORDERABLE LABS Fi nal Result [facility] [address] from Last 3 Months or Most Recently Relevant to Health Maintenance Insurance [facility] - [facility] Care Teams Infection Prevention Specialist Relationship Specialty Start Date End Date Xuan Mckeon MD [address] [place] [phone] PCP - General Family Medicine 09/20/20 Yariel Schmid, PharmD [address] [place] [phone] Pharmacist Internal Medicine 11/23/22
--- OUTSIDE RECORDS SUMMARY | 2024-11-08 10:04 | XMS_ITS | Encounter Summary ---
Author Organization [employer] Address [address] [place] [address] Care Team Providers Care Preschool Assistant Director Name Role Phone Xuan Mckeon MD Primary Care Provider Yariel Schmid PharmD Unavailable [phone] Reason for Visit * Reason Comments Med Refill Encounter Details Date Type Department Care Team ([facility] st Contact Info) Description 09/08/2023 Refill [facility] [address] [place], [place] [phone] Xuan Mckeon MD [address] [place], [place] [phone] Other specified anxiety disorders Social History Tobacco Use Types Packs/Day Years [...] Description 12/05/2024 1:30 PM EDT Office Visit [facility] [address] [place] [phone] Rodrigo Perez DDS [address] [place] [phone] 01/11/2025 10:15 AM EDT Office Visit [facility] [address] [place] [phone] Xuan Mckeon MD [address] [place] [phone] 02/02/2025 11:30 AM EDT Medication Management [facility] [address] [place] [phone] Yariel Schmid PharmD [address] [place] [phone] documented as of this encounter Goals Goal Patient Goal Type Associated Problems Recent Progress Patient-Stated? Author Blood Pressure < 140/90 Blood Pressure 156/90( 025 11:57 AM EST) No Yariel Schmid, Leelee documented as of this encounter Visit Diagnoses Diagnosis Other specified anxiety disorders documented in this encounter Additional Health Concerns Assessment Noted Time PHQ-9 Depression Total Score: 4 12/18/19 23 10:48 AM EDT documented as of this encounter Care Teams Preschool Assistant Director Relationship Specialty Start Date End Date Xuan Mckeon MD [address] [place] [address] PCP - General Family Medicine 09/20/20 Yariel Schmid, CristóbalD [address] [place] [address] Pharmacist Internal Medicine 11/23/22 documented as of this encounter
--- OUTSIDE RECORDS SUMMARY | 2024-11-08 10:04 | XMS_ITS | Encounter Summary ---
Author Organization [email or web address] Address [address] 7t [place] [address] Care Team Providers Care Bar Supervisor Name Role Phone Xuan Mckeon MD Primary Care Provider [phone] Yariel Schmid PharmD Unavailable [phone] Reason for Visit * Reason Comments Med Refill Encounter Details Date Type Department Care Team ([facility] st Contact Info) Description 03/06/2024 Refill [facility] [address] [place], [place] [phone] Ofelia Akhtar ANP [address] [place], [place] [phone] Other specified anxiety disorders Social History Tobacco [...] Description 12/05/2024 1:30 PM EDT Office Visit [facility] ADULT [facility] [address] [place] [address] Rodrigo Perez DDS 230 [place] [address] 01/11/2025 10:15 AM EDT Office Visit [facility] [address] [place] [address] Xuan Mckeon MD [address] [place] [address] 02/02/2025 11:30 AM EDT Medication Management [facility] [address] [place] [address] Yariel Schmid PharmD [address] [place] [address] documented as of this encounter Goals Goal Patient Goal Type Associated Problems Recent Progress Patient-Stated? Author Blood Pressure < 140/90 Blood Pressure 156/90( 025 11:57 AM EST) No Yariel Schmid, PharmSydnee documented as of this encounter Visit Diagnoses Diagnosis Other specified anxiety disorders documented in this encounter Additional Health Concerns Assessment Noted Time PHQ-9 Depression Total Score: 4 12/18/19 23 10:48 AM EDT documented as of this encounter Care Teams Bar Supervisor Relationship Specialty Start Date End Date Xuan Mckeon MD 230 [place] [address] PCP - General Family Medicine 09/20/20 Yariel Schmid, CristóbalD 230 [place] [address] Pharmacist Internal Medicine 11/23/22 documented as of this encounter
--- OUTSIDE RECORDS SUMMARY | 2024-11-08 10:04 | XMS_ITS | Encounter Summary ---
Author Organization [employer] Address [address] 7[address] [place] [address] Care Team Providers Care Layaway Clerk Name Role Phone Xuan Mckeon MD Primary Care Provider [phone] Yariel Schmid PharmD Unavailable [phone] Reason for Visit * Reason Onset Date Comments Paperwork/Forms 11/01/2024 Encounter Details Date Type Department Care Team ([facility] st Contact Info) Description 11/01/2024 Telephone [facility] 230 [place] [address] Meliza Cleveland, RN 230 [place] [address] Paperwork/Forms Social History Tobacco Use Types Packs/Day Years [...] is your housing situation today? I have jenniferregulo yao 05/30/[address] you [...] AM EDT documented as of this encounter Miscellaneous Notes * Telephone Encounter - Meliza Cleveland RN - 11/01/2024 12:52 PM EST Received form from pt's dental office requesting PCP consult on POC and signature for dental procedures. Placed on PCP's desk, pending signature. documented in this encounter Plan of Treatment Upcoming Encounters Date Type Department Care Team (Late st Contact Info) Description 12/05/2024 1:30 PM EDT Office Visit [facility] ADULT [facility] [address] [place] [address] Rodrigo Perez DDS [address] [place] [address] 01/11/2025 10:15 AM EDT Office Visit [facility] [address] [place] [address] Xuan Mckeon MD [address] [place] [address] 02/02/2025 11:30 AM EDT Medication Management [facility] [address] [place] [address] Yariel Schmid, Leelee [address] [place] [address] documented as of this encounter Goals Goal [...] documented as of this encounter Care Teams Layaway Clerk Relationship Specialty Start Date End Date Xuan Mckeon MD [address] [place] [address] PCP - General Family Medicine 09/20/20 Yariel Schmid, PharmD [address] [place] [address] Pharmacist Internal Medicine 11/23/22 documented as of this encounter
--- OUTSIDE RECORDS SUMMARY | 2024-11-08 10:04 | XMS_ITS | Encounter Summary ---
Author Organization [employer] Address [address] 7[address] [place] [address] Care Team Providers Care Labeling Specialist Name Role Phone Xuan Mckeon MD Primary Care Provider [phone] Yariel Schmid PharmD Unavailable [phone] Encounter Details Date Type Department Care Team (Late st Contact Info) Description 10/22/2023 Orders Only [facility] 230 [place], [place] [phone] Xuan Mckeon MD 230 [place], [place] [phone] Social History Tobacco Use Types Packs/Day Years [...] Description 12/05/2024 1:30 PM EDT Office Visit [facility]ULT [facility] [address] [place] [address] Rodrigo Perez DDS [address] [place] [address] 01/11/2025 10:15 AM EDT Office Visit [facility] [address] [place] [address] Xuan Mckeon MD [address] [place] [address] 02/02/2025 11:30 AM EDT Medication Management [facility] [address] [place] [address] Yariel Schmid PharmD [address] [place] [address] documented as of this encounter Goals Goal [...] documented as of this encounter Care Teams Labeling Specialist Relationship Specialty Start Date End Date Xuan Mckeon MD 230 [place] [address] PCP - General Family Medicine 09/20/20 Yariel Schmid, CristóbalD 230 [place] [address] Pharmacist Internal Medicine 11/23/22 documented as of this encounter
--- OUTSIDE RECORDS SUMMARY | 2024-11-08 10:04 | XMS_ITS | Encounter Summary ---
Author Organization [employer] Address [address] 7[address] [place] [address] Care Team Providers Care Hog Confinement System Manager Name Role Phone Xuan Mckeon MD Primary Care Provider [phone] Yariel Schmid PharmD Unavailable [phone] Reason for Visit * Reason Comments Dental Pain Lower left Encounter Details Date Type Department Care Team (Latest Contact Info) Description 10/31/2024 1:00 PM EST Office Visit [facility] ADULT D[facility] 230 [place] [address] Rodrigo Perez DDS [address] [place], [place] [phone] Cerebrovascular accident (CVA), unspecified mechanism (CMS/HCC) (Primary Dx) Social History Tobacco Use Types [...] AM EDT documented as of this encounter Progress Notes * Rodrigo Perez DDS - 10/31/2024 1:00 PM EST Dental procedures in this visit D9110 - PALLIATIVE (EMERGENCY) TREATMENT OF DENTAL PAIN - MINOR PROCEDURE (Completed) Service provider: Rodrigo Perez DDS Billing provider: Rodrigo Perez DDS [id number] - INTRAORAL - PERIAPICAL FIRST RADIOGRAPHIC IMAGE (Completed) Service provider: Rodrigo Perez DDS Billing provider: Rodrigo Perez DDS [id number] - CASE PRESENTATION, DETAILED AND EXTENSIVE TREATMENT PLANNING (Completed) Service provider: Rodrigo Perez DDS Billing provider: Rodrigo Perez DDS Patient ID: Che Weaver is a 74 y.o. female. Time Out: No data recorded Location: [facility] Tooth: #22 Procedure: Exam Verified the above with patient, pediatric physician assistant, and provider. Confirmed via patient's chart, intraorally and by radiographs. Retail Pos Specialist: not applicable Chief Complaint Patient presents with Dental Pain Lower left Medical Hx: Vitals: There were no vitals taken for this visit. Past Medical History: Diagnosis Date Diabetes mellitus ([facility]/HCC) Exertional chest pain 12/17/2022 Hypertension Palpitations 05/06/2018 Pruritus 12/17/2022 Medications: Outpatient Encounter Medications as of 10/31/2024 Medication Sig Dispense Refill Alcohol Swabs (Alcohol Prep) 70 % pads USE TWICE DAILY 100 each 11 atorvastatin (Lipitor) 40 MG tablet TAKE 1 TABLET BY MOUTH AT BEDTIME 90 tablet 3 Blood Glucose Monitoring Suppl (ONE TOUCH ULTRA 2) w/Device kit TEST BLOOD SUGAR TWICE DAILY cyanocobalamin (Vitamin B-12) 500 MCG tablet TAKE 1 TABLET BY MOUTH EVERY MORNING 90 tablet 3 cyclobenzaprine (Flexeril) 10 MG tablet TAKE 1 TABLET BY MOUTH ONE OR TWO TIMES DAILY DAILY NEEDED FOR MUSCLE SPASMS 30 tablet 1 D3 Super Strength 50 MCG (2000 UT) capsule TAKE 1 CAPSULE BY MOUTH EVERY MORNING 90 capsule 3 fexofenadine (Tanisha) 180 MG tablet TAKE 1 TABLET BY MOUTH EVERY DAY NEEDED FOR ALLERGIES 90 tablet 0 FREESTYLE LITE test strip TEST BLOOD SUGAR TWICE DAILY 100 strip 11 hydrOXYzine pamoate (Vistaril) 25 MG capsule TAKE 1 CAPSULE BY MOUTH AT BEDTIME NEEDED FOR ITCHING 30 capsule 1 LORazepam (Ativan) 1 MG tablet TAKE 1 TABLET BY MOUTH TWICE DAILY NEEDED FOR ANXIETY Do not start before September 11, 2024. 56 tablet 5 Systane 0.4-0.3 % solution INSTILL 1 DROP IN EACH EYE NEEDED azithromycin (Zithromax) 250 MG tablet Take two tablets on day one followed by one tablet from day two until gone. 6 tablet 0 chlorthalidone (Hygroton) 25 MG tablet TAKE 1 TABLET BY MOUTH EVERY MORNING 90 tablet 3 clopidogrel (Plavix) 75 MG tablet Take 75 mg by mouth in the morning. losartan (Cozaar) 100 MG tablet TAKE 1 TABLET BY MOUTH EVERY MORNING 90 tablet 3 metFORMIN XR (Glucophage-XR) 500 MG 24 hr tablet TAKE 1 TABLET BY MOUTH EVERY MORNING 90 tablet 3 metoprolol succinate XL (Toprol XL) 100 MG 24 hr tablet Take 1 tablet by mouth once daily at bedtime 90 tablet 3 pantoprazole (ProtoNix) 40 MG EC tablet TAKE 1 TABLET BY MOUTH EVERY DAY 90 tablet 0 TRUEplus Lancets 33G misc TEST BLOOD SUGAR TWICE DAILY 100 each 11 No facility-administered encounter medications on file as of 10/31/2024. Subjective: Pain: mild Duration: 3 days Objective: Tooth: #22 Radiographs Taken: PA(s) Radiographic Findings: Decay, Fractured/Broken Tooth, and Fractured/Missing Filling Clinical Findings: Deep distal caries extending sub-gingivally #22 Swelling: No swelling Endo Testing: N/A Perio: N/A Other Findings: N/A Diagnosis: Asymptomatic apical periodontitis Assessment/Plan: Patient is on Plavix (she was placed on it when she suffered a mild stroke). Requested medical clearance. Prescriptions: Zithromax 250mg Pt tolerated procedure well, all questions answered. Dismissed in good condition. NV: Extraction after receiving medical clearance Casino Gaming Worker: Zunilda Miller Dentist: Rodrigo Perez DDS documented in this encounter Plan of Treatment Upcoming Encounters Date Type Department Care Team (Late st Contact Info) Description 12/05/2024 1:30 PM EDT Office Visit [facility] D[facility] [address] [place] [address] Rodrigo Perez DDS 230 [place] [address] 01/11/2025 10:15 AM EDT Office Visit [facility] [address] [place] [address] Xuan Mckeon MD 230 [place] [address] 02/02/2025 11:30 AM EDT Medication Management [facility] [address] [place] [address] Yariel Schmid, PharmD [address] [place] [address] Scheduled Orders Name Type Priority Associated Diagnoses Orde r Schedule 22 22 EXTRACTION, ERUPTED TOOTH OR EXPOSED ROOT (ELEVATION/FORCEPS REMOVAL) Dental Routine [address] arting 10/31/2024 documented as of this encounter Goals Goal Patient Goal Type Associated Problems Recent Progress Patient-Stated? Author Blood Pressure < 140/90 Blood Pressure 156/90( 025 11:57 AM EST) No Yariel Schmid, Leelee documented as of this encounter Procedures Procedure Name Priority Date/Time Associated Diagnosis Comments PALLIATIVE (EMERGENCY) TREATMENT OF DENTAL PAIN - MINOR PROCEDURE Routine 10/31/2024 1:00 PM EST INTRAORAL - PERIAPICAL FIRST RADIOGRAPHIC IMAGE Routine 10/31/2024 1:00 PM EST CASE PRESENTATION, DETAILED AND EXTENSIVE TREATMENT PLANNING Routine 10/31/2024 1:00 PM EST documented in this encounter Visit Diagnoses Diagnosis Cerebrovascular accident (CVA), unspecified mechanism (CMS/HCC)- Primary documented in this encounter Additional Health Concerns Assessment Noted Time PHQ-9 Depression Total Score: 11 024 10:30 AM EDT documented as of this encounter Care Teams Hog Confinement System Manager Relationship Specialty Start Date End Date Xuan Mckeon MD [address] [place] [address] PCP - General Family Medicine 09/20/20 Yariel Schmid, CristóbalD [address] [place] [address] Pharmacist Internal Medicine 11/23/22 documented as of this encounter
--- OUTSIDE RECORDS SUMMARY | 2024-11-08 10:04 | XMS_ITS | Clinical Summary ---
Author Organization [facility] Address [address] [place] [address] Care Team Providers Care Barrer And Tacker Name Role Phone Unavailable Primary Care Provider Unavailabl e Social History Tobacco Use Types Packs/Day Years Used Date Smoking Tobacco: Never Assessed Comments Unknown Sex and Gender Information Value Date Recorded Sex Assigned at Not on file Legal Sex Female 9:37 AM EST Gender Identity Not on file Sexual Orientation Not on file Last Filed Vital Signs Vital Sign Reading Time Taken Comments Blood Pressure - - Pulse 76 05/29/2022 8:22 AM EDT Temperature - - Respiratory Rate - - Oxygen Saturation - - Inhaled Oxygen Concentration - - Weight 78.5 kg (173 lb 1.6 oz) 05/29/2022 8:22 A M EDT Height 154.9 cm (5' 1 ) 05/29/2022 8:22 AM EDT Body Mass Index 32.71 05/29/2022 8:22 AM EDT Plan of Treatment Health Maintenance Due Date Last Done Comments Breast Cancer Screening 1951 Diabetes: Annual GFR (Glomerular Filtration Rate) 1951 Diabetes: Annual Foot Exam 1961 Diabetes: Annual Retina Eye Exam 1961 Hepatitis A Vaccines (1 of 2 - Risk 2-dose series) 1970 Zoster Vaccines (1 of 2) 2001 Hepatitis B Vaccines (1 of 3 - Risk 3-dose series) 2011 RSV Immunization Patients 60+ Years Old (1 - Risk 60-74 years 1-dose series) 2011 Pneumococcal Vaccine: 50+ Years (3 of 3 - PCV20 or PCV21) 06/23/2021 06/23/2016, 07/03/2010 Cholesterol Screening (Lipid Panel) 08/04/2022 Colorectal Cancer Screening: Colonoscopy 08/04/2022 Depression Screening 08/04/2022 Falls Risk Assessment 08/04/2022 Hepatitis C Screening 08/04/2022 Osteoporosis Screening (Bone Density Screening) 08/04/2022 Social Influencers of Health Screening 08/04/2022 Diabetes: Annual Urine Albumin-Creatinine Ratio (uACR) 08/21/2022 Diabetes: Blood Sugar Control Test (HGBA1C) 08/21/2022 Hypertension/CHF/CAD Annual BMP Blood Test 08/21/2022 DTaP,Tdap,and Td Vaccines (3 - Td or Tdap) 09/25/2023 09/25/2013, 11/05/2001 COVID-19 Vaccine (1 - season) 2024 Influenza Vaccine (#1) 2024 5, 07/25/2014, 05/19/2013, Additional history exists HIB Vaccines Aged Out No longer eligi ble based on patient's age to complete this topic HPV Vaccines Aged Out No longer eligi ble based on patient's age to complete this topic IPV Vaccines Aged Out No longer eligi ble based on patient's age to complete this topic MMR Vaccines Aged Out No longer eligi ble based on patient's age to complete this topic Meningococcal ACWY Vaccine Aged Out N o longer eligible based on patient's age to complete this topic Meningococcal B Vacine Aged Out No lo nger eligible based on patient's age to complete this topic RSV Immunization Patients Under 20 months Aged Out No longer eligible based on patient's age to complete this topic Varicella Vaccines Aged Out No longer eligible based on patient's age to complete this topic
--- OUTSIDE RECORDS SUMMARY | 2024-11-08 10:04 | XMS_ITS | Encounter Summary ---
Author Organization [employer] Address [address] 7t [place] [address] Care Team Providers Care Transportation Job Titles Name Role Phone Xuan Mckeon MD Primary Care Provider [phone] Yariel Schmid PharmD Unavailable Reason for Visit * Reason Onset Date Comments Appointment Request 08/23/2024 Encounter Details Date Type Department Care Team ([facility] st Contact Info) Description 08/23/2024 Telephone [facility] 230 [place] [address] Xuan Mckeon MD 230 [place] [address] Appointment Request Social History Tobacco Use Types Packs/Day Years [...] your housing situation today? I have jennifer maximilian 05/30/[address] you li [...] encounter Miscellaneous Notes * Telephone Encounter - Orville Sweeney - 08/23/2024 8:48 AM EST Tc from pt requesting to reschedule today's CDTM visit. Please contact pt at [phone]. (Vietnamese Speaker) documented in this encounter Plan of Treatment Upcoming Encounters Date Type Department Care Team ([facility] st Contact Info) Description 12/05/2024 1:30 PM EDT Office Visit [facility] ADULT DENTAL [address] [place] [address] Rodrigo Perez DDS 230 [place] [address] 01/11/2025 10:15 AM EDT Office Visit [facility] [address] [place] [address] Xuan Mckeon MD 230 [place] [address] 02/02/2025 11:30 AM EDT Medication Management [facility] [address] [place] [address] Yariel Schmid, Leelee [address] [place] [address] documented as of this encounter Goals Goal [...] documented as of this encounter Care Teams Transportation Job Titles Relationship Specialty Start Date End Date Xuan Mckeon MD [address] [place] [address] PCP - General Family Medicine 09/20/20 Yariel Schmid, PharmD [address] [place] [address] Pharmacist Internal Medicine 11/23/22 documented as of this encounter
--- OUTSIDE RECORDS SUMMARY | 2024-11-08 10:04 | XMS_ITS | Encounter Summary ---
Author Organization [employer] Address [address] 7[address] [place] [address] Care Team Providers Care Cost Control Analyst Name Role Phone Xuan Mckeon MD Primary Care Provider [phone] Yariel Schmid PharmD Unavailable [phone] Reason for Visit * Reason Comments Med Refill Encounter Details Date Type Department Care Team ([facility] st Contact Info) Description 10/05/2023 Refill [facility] 230 [place], [place] [phone] Xuan Mckeon MD [address] [place], [place] [phone] Vitamin B12 deficiency Social History Tobacco Use Types Packs/Day Years [...] Description 12/05/2024 1:30 PM EDT Office Visit [facility] ADULT DENTAL [address] [place] [address] Rodrigo Perez DDS [address] [place] [address] 01/11/2025 10:15 AM EDT Office Visit [facility] [address] [place] [address] Xuan Mckeon MD [address] [place] [address] 02/02/2025 11:30 AM EDT Medication Management [facility] [address] [place] [address] Yariel Schmid, CristóbalD [address] [place] [address] documented as of this encounter Goals Goal Patient Goal Type Associated Problems Recent Progress Patient-Stated? Author Blood Pressure < 140/90 Blood Pressure 156/90( 025 11:57 AM EST) No Yariel Schmid, PharmD documented as of this encounter Visit Diagnoses Diagnosis Vitamin B12 deficiency Other B-complex deficiencies documented in this encounter Additional Health Concerns Assessment Noted Time PHQ-9 Depression Total Score: 4 12/18/19 23 10:48 AM EDT documented as of this encounter Care Teams Cost Control Analyst Relationship Specialty Start Date End Date Xuan Mckeon MD [address] [place], [place] [phone] PCP - General Family Medicine 09/20/20 Yariel Schmid, CristóbalD [address] [place] [address] Pharmacist Internal Medicine 11/23/22 documented as of this encounter
--- OUTSIDE RECORDS SUMMARY | 2024-11-08 10:04 | XMS_ITS | Encounter Summary ---
Author Organization [employer] Address [address] 7t [place] [address] Care Team Providers Care Pipe Organ Mechanic Apprentice Name Role Phone Xuan Mckeon MD Primary Care Provider [phone] Yariel Schmid PharmD Unavailable [phone] Reason for Visit * Reason Comments Med Refill Encounter Details Date Type Department Care Team ([facility] st Contact Info) Description 10/24/2024 Refill [facility] 230 [place], [place] [phone] Xuan Mckeon MD [address] [place], [place] [phone] Dyslipidemia; Vitamin deficiency Social History Tobacco Use Types Packs/Day [...] Description 12/05/2024 1:30 PM EDT Office Visit [facility] ADULT DENTAL [address] [place] [address] Rodrigo Perez DDS [address] [place] [address] 01/11/2025 10:15 AM EDT Office Visit [facility] [address] [place] [address] uXan Mckeon MD [address] [place] [address] 02/02/2025 11:30 AM EDT Medication Management [facility] [address] [place] [address] Yariel Schmid, Leelee [address] [place] [address] documented as of this encounter Goals Goal Patient Goal Type Associated Problems Recent Progress Patient-Stated? Author Blood Pressure < 140/90 Blood Pressure 156/90( 025 11:57 AM EST) No Yariel Schmid, Leelee documented as of this encounter Visit Diagnoses Diagnosis Dyslipidemia Other and unspecified hyperlipidemia Vitamin deficiency Unspecified vitamin deficiency documented in this encounter Additional Health Concerns Assessment Noted Time PHQ-9 Depression Total Score: 11 024 10:30 AM EDT documented as of this encounter Care Teams Pipe Organ Mechanic Apprentice Relationship Specialty Start Date End Date Xuan Mckeon MD [address] [place] [address] PCP - General Family Medicine 09/20/20 Yariel Schmid, Leelee [address] [place] [address] Pharmacist Internal Medicine 11/23/22 documented as of this encounter
--- OUTSIDE RECORDS SUMMARY | 2024-11-08 10:04 | XMS_ITS | Encounter Summary ---
Author Organization [employer] Address [address] [facility] [address] 7t [place] [address] Care Team Providers Care Spinneret Person Name Role Phone Xuan Mckeon MD Primary Care Provider [phone] Yariel Schmid PharmD Unavailable [phone] Encounter Details Date Type Department Care Team (Late st Contact Info) Description 09/20/2024 Orders Only [facility] MEDICINE [address] [place], [place] [phone] Xuan Mckeon MD [address] [place], [place] [phone] Left lower quadrant abdominal pain (Primary Dx); Diverticulitis Social History Tobacco Use Types Packs/Day Years [...] Description 12/05/2024 1:30 PM EDT Office Visit [facility] ADULT DENTAL [address] [place] [phone] Rodrigo Perez DDS [address] [place] [address] 01/11/2025 10:15 AM EDT Office Visit [facility] MEDICINE [address] [place] [address] Xuan Mckeon MD [address] [place] [address] 02/02/2025 11:30 AM EDT Medication Management [facility] MEDICINE [address] [place] [address] Yariel Schmid, Leelee [address] [place] [address] documented as of this encounter Goals Goal Patient Goal Type Associated Problems Recent Progress Patient-Stated? Author Blood Pressure < 140/90 Blood Pressure 156/90( 025 11:57 AM EST) No Yariel Schmid, Leelee documented as of this encounter Procedures Procedure Name Priority Date/Time Associated Diagnosis Comments CBC WITH AUTO DIFFERENTIAL Routine 09/21/2024 9:16 AM EST Left lower quadrant abdominal pain Diverticulitis SED RATE BY MODIFIED WESTERGREN Routine 09/21/2024 9:16 AM EST Left lower quadrant abdominal pain Diverticulitis C-REACTIVE PROTEIN Routine 09/21/2024 9: 16 AM EST Left lower quadrant abdominal pain Diverticulitis documented in this encounter Results * (ABNORMAL) Sed Rate by Modified Westergren (09/21/2024 9:16 AM EST) Erythrocyte Sedimentation Rate 25(H) 0 - 20 MM/HR [facility] Comment:Patients with polycy themia and many hemoglobin abnormalitiesmay have depressed sed rates whereas patients with anemiamay have elevated sed rates. Blood Venous blood specimen / Unknown 09/21/2024 9:16 AM EST 09/21/2024 11:12 AM EST us Xuan Mckeon MD LAB BLOOD ORDERABLES Final Resul t Performing Organization Address City/[facility]/ZIP Co de Phone Number [facility] [address] [place] [phone] * (ABNORMAL) C-reactive Protein (09/21/2024 9:16 AM EST) C Reactive Protein 0.96(H) < or = 0.50 mg/dL [facility] Blood Venous blood specimen / Unknown 09/21/2024 9:16 AM EST 09/21/2024 11:12 AM EST us Xuan Mckeon MD LAB BLOOD ORDERABLES Final Resul t Performing Organization Address City/[facility]/ZIP Co de Phone Number [facility] [address] [place] [phone] * (ABNORMAL) CBC auto differential (09/21/2024 9:16 AM EST) White Blood Count 6.2 4.8 - 10.8 X10*3/uL [facility] Red Blood Count 3.99(L) 4.20 - 5.50 X10*6/uL [facility] Hemoglobin 12.4 12.0 - 16.0 g/dl [facility] Hematocrit 36.3(L) 37.0 - 47.0 % [facility] Mean Corpuscular Volume 91.0 80.0 - 98.0 fL [facility] Mean Corpuscular Hemoglobin 31.1 27.0 - 33.0 pg [facility] Mean Corpuscular HGB Conc 34.2 31.0 - 35.0 g/dl [facility] Red Cell Distribution Width 12.5 11.0 - 16.0 % [facility] Platelet Count 288 160 - 400 X10*3/uL [facility] Mean Platelet Volume 10.5 9.4 - 12.3 fL [facility] Neutrophils Percent Auto 70.5 45 - 73 % [facility] Imm Gran Pct Auto 0.3 0.0 - 0.4 % [facility] Lymphocytes Percent Auto 20.0 20 - 40 % [facility] Monocytes Percent Auto 7.1 2 - 11 % [facility] Eosinophils Percent Auto 1.6 0 - 4 % [facility] Basophils Percent Auto 0.5 0 - 2 % [facility] NRBC Pct Auto 0.0 0.0 - 0.2 /100WBC [facility] Neutrophils Absolute Auto 4.3 2.0 - 8.3 x10*3/uL [facility] Imm Gran Abs Auto 0.02 0.00 - 0.03 X10*3/uL [facility] Lymphocytes Absolute Auto 1.2 1.2 - 4.9 X10*3/uL [facility] Monocytes Absolute Auto 0.4 0.1 - 1.2 X10*3/uL [facility] Eosinophils Absolute Auto 0.1 0.0 - 0.4 X10*3/uL [facility] Basophils Absolute Auto 0.0 0.0 - 0.2 X10*3/uL [facility] NRBC Abs Auto 0.000 0.0 - 0.012 X10*3/uL [facility] Blood Venous blood specimen / Unknown 09/21/2024 9:16 AM EST 09/21/2024 11:12 AM EST Xuan Mckeon MD LAB BLOOD ORDERABLES Final Resul t [facility] [address] [place] [phone] documented in this encounter Visit Diagnoses Diagnosis Left lower quadrant abdominal pain- Primary Diverticulitis Diverticulitis of colon (without mention of hemorrhage) documented in this encounter Additional Health Concerns Assessment Noted Time PHQ-9 Depression Total Score: 11 024 10:30 AM EDT documented as of this encounter Care Teams Spinneret Person Relationship Specialty Start Date End Date Xuan Mckeon MD [address] [place] [address] PCP - General Family Medicine 09/20/20 Yariel Schmid, PharmD [address] [place] [address] Pharmacist Internal Medicine 11/23/22 documented as of this encounter
--- OUTSIDE RECORDS SUMMARY | 2024-11-08 10:04 | XMS_ITS | Encounter Summary ---
Author Organization [employer] [facility] Address [address] [facility] 7t [place] [address] Care Team Providers Care Gem Technician Name Role Phone Xuan Mckeon MD Primary Care Provider [phone] Yariel Schmid PharmD Unavailable [phone] Reason for Referral * Consultation (Routine) - Authorized Specialty Diagnoses / Procedures Referred By Contac t Referred To Contact Pharmacy Diagnoses Primary hypertension Type 2 diabetes mellitus without complication, without long-term current use of insulin (CMS/HCC) Xuan Mckeon MD [address] [place] [address] Phone: tel: fax: Referral ID Status Reason Start Date Expiration Date Visits Requested Visits Authorized [id number] Authorized Consult and Treat 07/18/2024 07/18/2025 6 6 Encounter Details Date Type Department Care Team (Late st Contact Info) Description 07/18/2024 Orders Only [facility] MEDICINE [address] [place] [address] [phone] Xuan Mckeon MD [address] [place], [place] [phone] Primary hypertension (Primary Dx); Type 2 diabetes mellitus without complication, without long-term current use of insulin (CMS/HCC) Social History Tobacco Use Types Packs/Day Years [...] Description 12/05/2024 1:30 PM EDT Office Visit [facility] ADULT DENTAL [address] [place] [address] Rodrigo Perez DDS [address] [place] [address] 01/11/2025 10:15 AM EDT Office Visit [facility] MEDICINE [address] [place] [address] Xuan Mckeon MD [address] [place] [address] 02/02/2025 11:30 AM EDT Medication Management [facility] MEDICINE [address] [place] [address] Yariel Schmid, Leelee [address] [place] [address] Scheduled Referrals Name Type Priority Associated Diagnoses Orde r Schedule Referral to Pharmacy CDTM Outpatient Referral Routine Primary hypertension Type 2 diabetes mellitus without complication, without long-term current use of insulin ([facility]) Ordered: 07/18/2024 documented as of this encounter Goals Goal Patient Goal Type Associated Problems Recent Progress Patient-Stated? Author Blood Pressure < 140/90 Blood Pressure 156/90( 025 11:57 AM EST) No Yariel Schmid PharmD documented as of this encounter Visit Diagnoses Diagnosis Primary hypertension- Primary Unspecified essential hypertension Type 2 diabetes mellitus without complication, without long-term current use of insulin ([facility]) documented in this encounter Additional Health Concerns Assessment Noted Time PHQ-9 Depression Total Score: 11 024 10:30 AM EDT documented as of this encounter Care Teams Gem Technician Relationship Specialty Start Date End Date Xuan Mckeno MD [address] [place] [address] PCP - General Family Medicine 09/20/20 Yariel Schmid, Leelee [address] [place] [address] Pharmacist Internal Medicine 11/23/22 documented as of this encounter
--- OUTSIDE RECORDS SUMMARY | 2024-11-08 10:04 | XMS_ITS | Encounter Summary ---
Author Organization [employer] Address [address] [facility] [address] 7t [place] [address] Care Team Providers Care Sales Account Executive Name Role Phone Xuan Mckeon MD Primary Care Provider [phone] Yariel Schmid PharmD Unavailable [phone] Reason for Visit * Reason Comments Med Refill Encounter Details Date Type Department Care Team ([facility] st Contact Info) Description 10/18/2024 Refill [facility] MEDICINE [address] [place], [place] [phone] Xuan Mckeon MD [address] [place], [place] [phone] Fibromyalgia Social History Tobacco Use Types Packs/Day Years [...] Description 12/05/2024 1:30 PM EDT Office Visit [facility] ADULT DENTAL [address] [place] [address] Rodrigo Perez DDS [address] [place] [address] 01/11/2025 10:15 AM EDT Office Visit [facility] MEDICINE [address] [place] [address] Xuan Mckeon MD [address] [place] [address] 02/02/2025 11:30 AM EDT Medication Management [facility] MED[facility] [address] [place] [address] Yariel Schmid PharmD [address] [place] [address] documented as of this encounter Goals Goal Patient Goal Type Associated Problems Recent Progress Patient-Stated? Author Blood Pressure < 140/90 Blood Pressure 156/90( 025 11:57 AM EST) No Schmid, Yariel, PharmD documented as of this encounter Visit Diagnoses Diagnosis Fibromyalgia Unspecified myalgia and myositis documented in this encounter Additional Health Concerns Assessment Noted Time PHQ-9 Depression Total Score: 11 024 10:30 AM EDT documented as of this encounter Care Teams Sales Account Executive Relationship Specialty Start Date End Date Xuan Mckeon MD [address] [place] [address] PCP - General Family Medicine 09/20/20 Yariel Schmid, CristóbalD [address] [place] [address] Pharmacist Internal Medicine 11/23/22 documented as of this encounter
--- OUTSIDE RECORDS SUMMARY | 2024-11-08 10:04 | XMS_ITS | Encounter Summary ---
Author Organization [employer] Address [address] [facility] [address] [facility] [address] 7t [place] [address] Care Team Providers Care Poultry Inspector Name Role Phone Xuan Mckeon MD Primary Care Provider [phone] Yariel Schmid PharmD Unavailable [phone] Reason for Visit * Reason Comments Med Refill Encounter Details Date Type Department Care Team ([facility] Contact Info) Description 10/06/2022 Refill [facility] CHC MED & PEDS [address] [place], [place] [phone] Ofelia Akhtar ANP [address] [place], [place] [phone] Other specified anxiety disorders Social History Tobacco Use Types Packs/Day Years Used Date Smoking Tobacco: Never Assessed Comments Unknown Sex and Gender Information Value Date Recorded Sex Assigned at Female 07/06/2022 10:14 AM EDT Legal Sex Female 10:14 AM EDT Gender Identity Female 07/06/2022 10:14 AM EDT Sexual Orientation Choose not to disclose 2021 10:14 AM EDT COVID-19 Exposure Response Date Recorded In the last 10 days, have yo u been in contact with someone who was confirmed or suspected to have Coronavirus/COVID-19? No / Unsure 10/02/2022 11:34 AM EST documented as of this encounter Plan of Treatment Upcoming Encounters Date Type Department Care Team ([facility] Contact Info) Description 12/05/2024 1:30 PM EDT Office Visit [facility] ADULT DENTAL [address] [place], [place] [phone] Rodrigo Perez DDS 230 [place] [address] 01/11/2025 10:15 AM EDT Office Visit [facility] MEDICINE [address] [place] [address] [place] [address] Xuan Mckeon MD Olivia [facility] [place] 02/02/2025 11:30 AM EDT Medication Management [address] [address] Yariel Schmid, [place] [address] documented as of this encounter Visit Diagnoses Diagnosis Other specified anxiety disorders documented in this encounter Care Teams Poultry Inspector Relationship Specialty Start Date End Date Xuan Mckeon MD [address] [place], [place] [phone] PCP - General Family Medicine 09/20/20 Yariel Schmid, PharmD [address] [place] [address] [phone] Pharmacist Internal Medicine 11/23/22 documented as of this encounter
--- OUTSIDE RECORDS SUMMARY | 2024-11-08 10:04 | XMS_ITS | Encounter Summary ---
Author Organization [employer] [facility] Address [address] [facility] 7t [place] [address] Care Team Providers Care Methods Specialist Name Role Phone Xuan Mckeon MD Primary Care Provider [phone] Yariel Schmid PharmD Unavailable [phone] Encounter Details Date Type Department Care Team (Latest Contact Info) Description 01/23/2022 Abstract [facility] CONVERSIONS Dental, Provider, DDS Social History Tobacco Use Types Packs/Day Years [...] Description 12/05/2024 1:30 PM EDT Office Visit [facility] ADULT DENTAL [address] [place] [address] Rodrigo Perez DDS [address] [place] [address] 01/11/2025 10:15 AM EDT Office Visit [facility] MEDICINE [address] [place] [address] Xuan Mckeon MD [address] [place] [address] 02/02/2025 11:30 AM EDT Medication Management [facility] MEDICINE [address] [place] [address] Yariel Schmid, PharmD [address] [place] [address] documented as of this encounter Visit Diagnoses Not on filedocumented in this encounter Care Teams Methods Specialist Relationship Specialty Start Date End Date Xuan Mckeon MD [address] [place] [address] PCP - General Family Medicine 09/20/20 Yariel Schmid, PharmD [address] [place] [address] Pharmacist Internal Medicine 11/23/22 documented as of this encounter
--- OUTSIDE RECORDS SUMMARY | 2024-11-08 10:04 | XMS_ITS | Encounter Summary ---
Author Organization [employer] Address [address] [facility] [address] 7t [place] [address] Care Team Providers Care Gardening Instructor Name Role Phone Xuan Mckeon MD Primary Care Provider [phone] Yariel Schmid PharmD Unavailable [phone] Reason for Visit * Reason Comments Med Refill Encounter Details Date Type Department Care Team ([facility] st Contact Info) Description 11/02/2024 Refill [facility] MEDICINE 230 [place], [place] [phone] Xuan Mckeon MD [address] [place], [place] [phone] Urticaria Social History Tobacco Use Types Packs/Day Years [...] 12/05/2024 1:30 PM EDT Office Visit [facility] ADULT DENTAL [address] [place] [address] Rodrigo Perez DDS [address] [place] [address] 01/11/2025 10:15 AM EDT Office Visit [facility] MEDICINE [address] [place] [address] Xuan Mckeon MD [address] [place] [address] 02/02/2025 11:30 AM EDT Medication Management [facility] MEDICINE [address] [place] [address] Yariel Schmid PharmD [address] [place] [address] documented as of this encounter Goals Goal Patient Goal Type Associated Problems Recent Progress Patient-Stated? Author Blood Pressure < 140/90 Blood Pressure 156/90( 025 11:57 AM EST) No Yariel SchmidLeelee documented as of this encounter Visit Diagnoses Diagnosis Urticaria Unspecified urticaria documented in this encounter Additional Health Concerns Assessment Noted Time PHQ-9 Depression Total Score: 11 024 10:30 AM EDT documented as of this encounter Care Teams Gardening Instructor Relationship Specialty Start Date End Date Xuan Mckeon MD [address] [place] [address] PCP - General Family Medicine 09/20/20 Yariel Schmid, CristóbalD 230 [place] [address] Pharmacist Internal Medicine 11/23/22 documented as of this encounter
--- OUTSIDE RECORDS SUMMARY | 2024-11-08 10:04 | XMS_ITS | Encounter Summary ---
Author Organization [employer] Address [address] [facility] [address] 7t [place] [address] Care Team Providers Care Drug Safety Specialist Name Role Phone Xuan Mckeon MD Primary Care Provider [phone] Yariel Schmid PharmD Unavailable [phone] Encounter Details Date Type Department Care Team (Late st Contact Info) Description 09/23/2022 Orders Only [facility] CHC MED & PEDS [address] [place] [address] Shannon Rich LPN Social History Tobacco Use Types Packs/Day Years [...] Description 12/05/2024 1:30 PM EDT Office Visit [facility] ADULT DENTAL [address] [place] [address] Rodrigo Perez DDS [address] [place], [place] [phone] 01/11/2025 10:15 AM EDT Office Visit [facility] MEDICINE [address] [place] [address] Xuan Mckeon MD 230 [place], [place] [phone] 02/02/2025 11:30 AM EDT Medication Management [facility] MEDICINE [address] [place], [place] [phone] Yariel Schmid, PharmSydnee [address] [place] [address] documented as of this encounter Visit Diagnoses Not on filedocumented in this encounter Care Teams Drug Safety Specialist Relationship Specialty Start Date End Date Xuan Mckeon MD [address] [place] [address] [phone] PCP - General Family Medicine 09/20/20 Yariel Schmid, CristóbalD [address] [place] [address] [phone] Pharmacist Internal Medicine 11/23/22 documented as of this encounter
--- OUTSIDE RECORDS SUMMARY | 2024-11-08 10:04 | XMS_ITS | Encounter Summary ---
Author Organization [employer] Address [address] [facility] [facility] [address] 7t [place] [address] Care Team Providers Care Asphalt Roller Operator Name Role Phone Xuan Mckeon MD Primary Care Provider [phone] Yariel Schmid PharmD Unavailable [phone] Reason for Visit * Reason Comments Med Refill Encounter Details Date Type Department Care Team ([facility] st Contact Info) Description 10/05/2023 Refill [facility] MEDICINE 230 [place], [place] [phone] Xuan Mckeon MD [address] [place], [place] [phone] Vitamin B12 deficiency Social History Tobacco Use [...] Description 12/05/2024 1:30 PM EDT Office Visit [facility] ADULT DENTAL [address] [place] [address] Rodrigo Perez DDS [address] [place] [address] 01/11/2025 10:15 AM EDT Office Visit [facility] MEDICINE [address] [place] [address] Xuan Mckeon MD [address] [place] [address] 02/02/2025 11:30 AM EDT Medication Management [facility] MEDICINE [address] [place] [address] Yariel Schmid, CristóbalD [address] [place] [address] documented as of this encounter Goals Goal [...] documented as of this encounter Care Teams Asphalt Roller Operator Relationship Specialty Start Date End Date Xuan Mckeon MD [address] [place], [place] [phone] PCP - General Family Medicine 09/20/20 Yariel Schmid, CristóbalD 230 [place] [address] Pharmacist Internal Medicine 11/23/22 documented as of this encounter
--- OUTSIDE RECORDS SUMMARY | 2024-11-08 10:04 | XMS_ITS | Encounter Summary ---
Author Organization [employer] Address [address] [facility] [facility] [address] 7t [place] [address] Care Team Providers Care Test Puller Name Role Phone Xuan Mckeon MD Primary Care Provider [phone] Yariel cShmid PharmD Unavailable [phone] Encounter Details Date Type Department Care Team (Latest Contact Info) Description 10/10/2024 Travel Social History Tobacco Use Types Packs/Day Years [...] your housing situation today? I have jennifer sing 05/30/[address] you li [...] Description 12/05/2024 1:30 PM EDT Office Visit [facility] ADULT DENTAL [address] [place] [address] Rodrigo Perez DDS [address] [place] [address] 01/11/2025 10:15 AM EDT Office Visit [facility] MEDICINE [address] [place] [address] Xuan Mckeon MD [address] [place] [address] 02/02/2025 11:30 AM EDT Medication Management [facility] MEDICINE [address] [place] [address] Yariel Schmid PharmD [address] [place] [address] documented as of this encounter Goals Goal [...] documented as of this encounter Care Teams Test Puller Relationship Specialty Start Date End Date Xuan Mckeon MD 230 [place] [address] PCP - General Family Medicine 09/20/20 Yariel Schmid, CristóbalD [address] [place] [address] Pharmacist Internal Medicine 11/23/22 documented as of this encounter
--- OUTSIDE RECORDS SUMMARY | 2024-11-08 10:05 | XMS_ITS | Encounter Summary ---
Author Organization [employer] Address [address] [facility] 7t [place] [address] Care Team Providers Care Brush Cutter Name Role Phone Xuan Mckeon MD Primary Care Provider [phone] Yariel Schmid PharmD Unavailable [phone] Reason for Visit * Reason Comments Med Refill Encounter Details Date Type Department Care Team (Late Contact Info) Description 03/18/2023 Refill [facility] CHC MED & PEDS [address] [place], [place] [phone] Xuan Mckeon MD [address] [place] [address] Other specified anxiety disorders Social History Tobacco Use Types Packs/Day Years Used Date Smoking Tobacco: Never Passive Smoke Exposure: Never Smokeless Tobacco: Never Depression Answer Date Recorded Patient Health Questionnaire-9 Score 4 12/17/2022 Depression Answer Date Recorded Patient Health Questionnaire-2 [...] Encounters Date Type Department Care Team (Late Contact Info) Description 12/05/2024 1:30 PM EDT Office Visit [facility] ADULT DENTAL 230 [place], [place] [phone] Rodrigo Perez DDS 230 [place] [address] 01/11/2025 10:15 AM EDT Office Visit [address] [address] Xuan Mckeon MD [place] 02/02/2025 11:30 AM EDT Medication Management [address] [address] Yariel Schmid, Leelee [address] [place] [address] documented as of this encounter Goals Goal [...] documented as of this encounter Care Teams Brush Cutter Relationship Specialty Start Date End Date Xuan Mckeon MD [address] [place], [place] [phone] PCP - General Family Medicine 09/20/20 Yariel Schmid PharmD [address] [place] [address] [phone] Pharmacist Internal Medicine 11/23/22 documented as of this encounter
--- OUTSIDE RECORDS SUMMARY | 2024-11-08 10:05 | XMS_ITS | Encounter Summary ---
Author Organization [facility] Address [address] [facility] [address] [place] [address] Care Team Providers Care Automotive Upholsterer Name Role Phone Xuan Mckeon MD Primary Care Provider [phone] Yariel Schmid PharmD Unavailable [phone] Reason for Visit * Reason Comments Med Refill Encounter Details Date Type Department Care Team (Late st Contact Info) Description 04/07/2023 Refill [facility] MEDICINE [address] [place] [address] Xuan Mckeon MD [address] [place], [place] [phone] Vitamin B12 deficiency Social History Tobacco Use [...] Description 12/05/2024 1:30 PM EDT Office Visit [facility] ADULT DENTAL [address] [place], [place] [phone] Rodrigo Perez DDS [address] [place] [address] 01/11/2025 10:15 AM EDT Office Visit [address] [address] Xuan Mckeon MD [address] [place] [phone] 02/02/2025 11:30 AM EDT Medication Management [address] [address] Yariel Schmid, Leelee [address] [place] [phone] documented as of this encounter Goals Goal Patient Goal Type Associated Problems Recent Progress Patient-Stated? Author Blood Pressure < 140/90 Blood Pressure 156/90( 025 11:57 AM EST) No Yariel Schmid, Leelee documented as of this encounter Visit Diagnoses Diagnosis Vitamin B12 deficiency Other B-complex deficiencies documented in this encounter Additional Health Concerns Assessment Noted Time PHQ-9 Depression Total Score: 4 12/18/19 10:48 AM EDT documented as of this encounter Care Teams Automotive Upholsterer Relationship Specialty Start Date End Date Xuan Mckeon MD [address] [place] [phone] PCP - General Family Medicine 09/20/20 Yariel Schmid PharmD [address] [place] [phone] Pharmacist Internal Medicine 11/23/22 documented as of this encounter
[2024-11-08 11:37] LABS: Appearance Urine Clear; Color Urine Yellow; Glucose Urine UA Negative (Negative); Leukocyte Esterase Urine Trace (Negative); Nitrite Urine Negative (Negative); UMIC TRIGGER UA YES; Urine Blood Negative (Negative); Urine Ketones Negative (Negative); Urine Protein Negative (Neg-Trace)
[2024-11-08 11:40] LABS: Bacteria Urine 3+ (None Seen); Hyaline Casts Urine 0-2 /LPF (0-2); RBC Urine 0-2 /HPF (0-2); Squamous Epithelial Cell Urine 0-2 /HPF (0-2)
[2024-11-08 12:15] LABS: Creatinine Urine 161.01 mg/dL; Microalbum/Creatinine Ratio Ur 3.7 ug/mg cr (<30)
[2024-11-08 12:20] LABS: Anion Gap 9 (12-20); Blood Urea Nitrogen 12 mg/dL (9-16); Calcium 9.4 mg/dL (8.4-10.2); Carbon Dioxide 31 mmol/L (22-29); Chloride 102 mmol/L (96-108); Cholesterol 166 mg/dL (<200); Estimated Glomerular Filt Rate > 60; Glucose Random 111 mg/dL (60-115); HDL Cholesterol 38 mg/dL (>40); LDL Cholesterol Calculated 83 mg/dL (<100); Potassium 3.9 mmol/L (3.3-5.1); Sodium 138 mmol/L (135-145); Triglycerides 229 mg/dL (<150)
[2024-11-08 12:21] LABS: Anion Gap 9 (12-20); Blood Urea Nitrogen 12 mg/dL (9-16); Calcium 9.3 mg/dL (8.4-10.2); Carbon Dioxide 31 mmol/L (22-29); Chloride 103 mmol/L (96-108); Estimated Glomerular Filt Rate > 60; Glucose Random 112 mg/dL (60-115); Magnesium 1.8 mg/dL (1.6-2.6); Potassium 3.8 mmol/L (3.3-5.1); Sodium 139 mmol/L (135-145)
[2024-11-08 12:47] LABS: Reflex LDLD? No
== END 2024-11-08 09:10 | disposition home or self-care (01) ==
LOC: HO.HHCL 09:09
PROVIDERS: Internal Medicine Hypertension Specialist; Visit Provider Family Medicine
DX: I10 Essential (primary) hypertension (principal); E87.6 Hypokalemia; E11.9 Type 2 diabetes mellitus without complications
CPT/HCPCS: 36415; 80048; 80061; 81001; 82043; 82570; 83735

== ENCOUNTER 2024-12-06 09:38 | Outpatient (AMB) | payer OTHER, SELFPAY ==
--- NOTE | 2024-12-06 09:42 | A.OFFVIS_ITS ---
Vital Signs 12/06/24 09:45 Height 5 ft 1 in Weight 166 lb 10.711 oz BMI 31.5 BP 132/64 Blood Pressure Location Lt brachial Position Sitting Pulse 77 Pulse Source Monitor Intake Visit Reasons: r/s /8-5 mth f/up Intake Note: r/s 5 mth f/up Supervisor Yard Required: Yes Supervisor Yard Language: Operating Room Manager Name: [id number] Accompanied by: Employee Allergies hydrocodone [HYDROCODONE] Allergy (Unknown, Verified 09/14/24 03:00) UNKNOWN levofloxacin [LEVOFLOXACIN] Allergy (Unknown, Verified 09/14/24 03:00) Rash metronidazole [METRONIDAZOLE] Allergy (Unknown, Verified 09/14/24 03:00) UNK promethazine [PROMETHAZINE] Allergy (Unknown, Verified 09/14/24 03:00) Rash Codeine Allergy (Unknown, Uncoded 09/14/24 03:00) swelling/ itching/ hives dye contrast Allergy (Unknown, Uncoded 09/14/24 03:00) red skin Hydrocodone-Acetaminophen Allergy (Unknown, Uncoded 09/14/24 03:00) rash Medication List - Last Reconciled 12/06/24 by Hieu Karimi MD atorvastatin 40 mg PO DAILY chlorthalidone 25 mg PO DAILY clopidogrel 75 mg PO DAILY cyanocobalamin (vitamin B-12) 500 mcg PO DAILY cyclobenzaprine 10 mg PO TID PRN hydroxyzine pamoate 25 mg PO DAILY PRN lorazepam 1 mg PO BID PRN losartan 100 mg PO DAILY metformin ER 500 mg PO DAILY metoprolol succinate ER 100 mg PO DAILY ondansetron 4 mg PO Q6H PRN pantoprazole (Protonix) 40 mg PO DAILY potassium chloride ER 20 mEq (2 x 10 mEq) PO BID 7 days tramadol 50 mg PO Q6H PRN HPI Comments Details: Pleasant 74-year-old lady here for follow-up. She is accompanied by her [employer] who acted as the agriculturist. Patient was originally seen for dyspnea and palpitations. She underwent echocardiography which showed grade 1 diastolic dysfunction but did not show any significant valvular issues or LV or RV dysfunction. She underwent cardiac event monitoring which was unremarkable and did not show any significant arrhythmia. She returns for follow-up today. She was in the emergency department on 07/04/2022 with left-sided paresthesias as well as numbness of her tongue. She was unable to speak. She was sent home with a diagnosis of fibromyalgia and paresthesia. She is saying she has been doing well since then. She has been taking baby aspirin before and no changes in medications were made. Denying any chest discomfort or palpitations. Blood pressure control is good currently. Her aspirin was stopped and she was started on Plavix. Today she returns for follow-up and is complaining of chest discomfort which has been happening for the last few weeks. This happens when she does activities and improves that she rest. Pattern is concerning for angina. Her blood pressure control is good. Do not have any ischemic evaluation recently. 06/23/23: She returns for follow-up. She is denying any chest discomfort. She previously had Lexiscan performed because she could not exercise on treadmill. Lexiscan showed probably normal perfusion with suspected diaphragmatic attenuation artifact causing inferolateral perfusion defect. This was felt to be more likely to be artifact than ischemia. As mentioned she is denying any symptoms on follow-up. Her blood pressure is elevated and had a discussion with her that we should titrate medications or add amlodipine 2.5 mg once a day. [place] is saying that her blood pressure is elevated due to anxiety and whenever she gets it checked at her pharmacy does normal. I had long discussion with her and we have decided to keep a log of blood pressure for 2 weeks and bring it on follow-up next time. 04/10/2024: She is here for follow-up. Blood pressure is well controlled on follow-up. She is getting some atypical chest pains. She has not been physically active. Taking medications regularly. 12/06/2024: She is here for follow-up. Blood pressure is well controlled. She is denying any chest pressure. Left-sided breast tenderness and pain. Previously was getting some pressure-like feeling but denying that now. She has some dyspnea with exertion but has not been physically active more recently. I have advised her to start exercising regularly as the weather is changing. [facility] Medical History Diverticulitis Hypertension Surgical History H/O section Family History Father No problems noted. Mother CVD (cardiovascular disease) Social History Alcohol intake: never Patient Tobacco Use Status: Never used Tobacco Review of Systems Const Denies chills, Denies fatigue, Denies fever(s), Denies frequent falls, Denies weakness, Denies weight gain and Denies weight loss ENT Denies dizziness Card Denies chest pain, Denies leg edema, Denies lightheadedness, Denies palpitations, Denies dyspnea and Denies dyspnea on exertion Resp Denies cough, Denies dyspnea and Denies dyspnea on exertion GI Denies hematochezia Musc Denies abnormal gait, Denies muscle weakness, Denies numbness, Denies radiating pain into limb and Denies tingling Neuro Denies abnormal gait, Denies dizziness, Denies frequent falls, Denies numbness, Denies tingling and Denies weakness Endo Denies fatigue and Denies palpitations Physical Exam Vital Signs: Last Vital Signs Pulse 77 12/06/24 09:45 BP 132/64 12/06/24 09:45 BMI result Body Mass Index 31.5 GENERAL APPEARANCE: in no acute distress, well developed, well nourished. NECK/THYROID: no carotid bruit, no jugular venous distention. SKIN: normal, no rashes. HEART: no murmurs, regular rate and rhythm, S1, S2 normal. LUNGS: clear to auscultation bilaterally. ABDOMEN: normal, bowel sounds present, soft, nontender, nondistended. EXTREMITIES: no edema. PERIPHERAL PULSES: equal. NEUROLOGIC: nonfocal, motor strength normal upper and lower extremities, sensory exam intact. PSYCH: mood/affect full range. Office Procedures EKG Details: Sinus rhythm 77 beats per minute, normal axis, poor R-wave progression and can not rule out anterior infarct, QTC 426 milliseconds. [id number], Complete Assessment & Plan Assessment & Plan (1) Chest pain: Code(s): R07.9 - Chest pain, unspecified Category: Medical (2) TIA (transient ischemic attack): Code(s): G45.9 - Transient cerebral ischemic attack, unspecified Category: Medical (3) Hypertension: Code(s): I10 - Essential (primary) hypertension Category: Medical Plan [age] year female who is here for follow-up. She has background history of abnormal Lexiscan which showed inferolateral perfusion defect. She was complaining of some chest discomfort but is denying any pressure-like feeling anymore. She has left-sided breast tenderness and is saying that she had mammography done. In terms of her breathing she has dyspnea on exertion but has not been exercising regularly. I have advised her to start exercising again. We discuss ed in detail that if she continues to get symptoms then we will do further testing. She does have contrast dye allergy and any further testing we will require contrast exposure whether it was CTA or coronary angiography. She will see us back in few months. Thank you for allowing me to participate in the care of your patient. Please feel free to contact me if you have any questions. Coding Level of Care Code Est Pt Level 4 (05816) Complex EM visit Add On G2211 Diagnoses Chest pain R07.9 TIA (transient ischemic attack) G45.9 Hypertension I10 CPT Codes EKG - CPT: 20701-[id number], Complete ([id number])
[2024-12-06 09:45] VITALS: BP 132/64; PULSE 77; BMI 31.5
--- OUTSIDE RECORDS SUMMARY | 2024-12-06 10:51 | XMS_ITS | Encounter Summary ---
Author Organization [employer] Address [address] [facility] [place] [address] Care Team Providers Care Academic Records Specialist Name Role Phone Xuan Mckeon MD Primary Care Provider Yariel Schmid PharmD Unavailable [phone] Reason for Visit * Reason Comments Med Refill Encounter Details Date Type Department Care Team ([facility] st Contact Info) Description 10/05/[address] [facility] MEDICINE [address] [place], [place] [phone] Xuna Mckeon MD [address] [place], [place] [phone] Vitamin B12 deficiency Social History Tobacco Use [...] Care Team (Late st Contact Info) Description 01/11/2025 10:15 AM EDT Office Visit [facility] MEDICINE [address] [place] [phone] Xuan Mckeon MD [address] [place] [phone] 02/02/2025 11:30 AM EDT Medication Management [facility] MED[facility]INE [address] [place] [phone] Yariel Schmid PharmD [address] [place] [phone] documented as of this encounter Goals Goal [...] documented as of this encounter Care Teams Academic Records Specialist Relationship Specialty Start Date End Date Xuan Mckeon MD [address] [place] [phone] PCP - General Family Medicine 09/20/20 Yariel Schmid, PharmD [address] [place] [phone] Pharmacist Internal Medicine 11/23/22 documented as of this encounter
--- OUTSIDE RECORDS SUMMARY | 2024-12-06 10:52 | XMS_ITS | Clinical Summary ---
Author Organization [employer] Address [address] [facility] [address] [place] [address] Care Team Providers Care Piano Professor Name Role Phone Xuan Mckeon MD Primary Care Provider [phone] Yariel Schmid PharmD Unavailable [phone] Allergies Active Allergy Reactions Criticality Noted Date [...] complication, without long-term current use of insulin ([facility]) USE TWICE DAILY 100 each 11 10/18/19 24 Active metFORMIN XR (Glucophage-XR) 500 MG [...] complication, without long-term current use of insulin ([facility]) TEST BLOOD SUGAR TWICE DAILY 100 strip 11 08/29/20 24 Active LORazepam (Ativan) 1 MG tabletIndication s:Other specified anxiety disorders TAKE 1 TABLET BY MOUTH TWICE DAILY NEEDED FOR ANXIETY Do not start before September 11, 2024. 56 tablet 5 09/11/19 25 Active TRUEplus Lancets 33G misc TEST BLOOD SUGAR TWICE DAILY 100 each 11 09/15/19 25 Active cyanocobalamin (Vitamin B-12) 500 MCG tabletIndication s:Vitamin B12 deficiency TAKE 1 TABLET BY MOUTH EVERY MORNING 90 tablet 3 09/26/19 25 Active atorvastatin (Lipitor) 40 MG tabletIndication s:Dyslipidemia TAKE 1 TABLET BY MOUTH AT BEDTIME 90 tablet 3 10/24/19 25 Active D3 Super Strength 50 MCG (1999 UT) capsuleIndicatio ns:Vitamin deficiency TAKE 1 CAPSULE BY MOUTH EVERY MORNING 90 capsule 3 10/24/19 25 Active hydrOXYzine pamoate (Vistaril) 25 MG capsuleIndicatio ns:Urticaria TAKE 1 CAPSULE BY MOUTH AT BEDTIME NEEDED FOR ITCHING 30 capsule 1 11/03/19 25 Active cyclobenzaprine (Flexeril) 10 MG tabletIndication s:Fibromyalgia TAKE 1 TABLET BY MOUTH ONE OR TWO TIMES DAILY NEEDED FOR MUSCLE SPASMS 30 tablet 1 11/16/19 25 Active losartan (Cozaar) 100 MG tablet TAKE 1 TABLET BY MOUTH EVERY MORNING 90 tablet 3 11/24/19 25 Active losartan (Cozaar) 100 MG tablet TAKE 1 TABLET BY MOUTH EVERY MORNING 90 tablet 3 11/25/19 24 025 Discontinued cyclobenzaprine (Flexeril) 10 MG tabletIndication s:Fibromyalgia TAKE 1 TABLET BY MOUTH ONE OR TWO TIMES DAILY DAILY NEEDED FOR MUSCLE SPASMS 30 tablet 1 09/18/19 25 025 Discontinued Active Problems Problem Noted Date Diagnosed Date [...] has already been seen and treated by clinic specialist. She states she could not complete [...] Plan (12/17/2022 11:27 AM EDT): Seen by Supervisor [employer], Dr. Karimi, on 11/26/22. Reported exertional Cheat [...] -BP not at goal today -Co-managed with liquid loader and PharmD. -pt advised to continue checking BP at home -liquid loader: Dr. Karimi, last visit in 11/26/22; exertional [...] -BP not at goal today -Co-managed with liquid loader and PharmD. -pt advised to continue checking BP at home -liquid loader: Dr. Karimi, last visit in 11/26/22; exertional [...] -BP not at goal today -Co-managed with liquid loader and PharmD. -pt advised to continue checking BP at home -liquid loader: Dr. Karimi, last visit in 11/26/22; exertional [...] < 130/80 per ACC/AHA - co-managed with liquid loader and PharmD. -pt advised to continue checking BP at home -liquid loader: Dr. Karimi, last visit in 11/26/22; exertional [...] < 130/80 per ACC/AHA - co-managed with liquid loader and PharmD. -pt advised to continue checking BP at home -liquid loader: Dr. Karimi, last visit in 11/26/22; exertional [...] advised to continue checking BP at home -liquid loader: Dr. Karimi, last visit in 11/26/22; exertional [...] advised to continue checking BP at home -liquid loader: Dr. Karimi, last visit in 07/06/22; concerns [...] on 07/03/22 - Started on Plavix by liquid loader; ASA was discontinued due to GI bleed - Continue statin, clopidogrel, and losartan - Continue working on lifestyle modification / risk factor management Assessment & Plan (11/30/2023 4:38 AM EDT): - seen in ED on 07/03/22 - Started on Plavix by liquid loader; ASA was discontinued due to GI bleed - Continue statin, clopidogrel, and losartan - Continue working on lifestyle modification / risk factor management Assessment & Plan (12/17/2022 11:23 AM EDT): - seen in ED on 07/03/22 - Started on Plavix by liquid loader; ASA was discontinued due to GI bleed - Continue statin, clopidogrel, and losartan - Continue working on lifestyle modification / risk factor management Assessment & Plan (10/04/2022 5:51 AM EST): - seen in ED on 07/03/22 - Started on Plavix by liquid loader; ASA was discontinued due to GI bleed [...] describes 3 episodes, last on treated at [facility] on 04/2012 Assessment & Plan (10/17/2024 10:49 [...] Encounters Date Type Department Care Team Description 12/05/2024 1:30 PM EDT Office Visit [facility] [address] [facility] [place] [address] Rodrigo Perez DDS 12/05/2024 Telephone [facility] [address] [facility] [place] [address] Xuan Mckeon MD medical clearance for dental question 11/23/2024 Refill [facility] [address] [facility] [place] [address] Xuan Mckeon MD 11/14/2024 Refill [facility] MED[facility] [address] [facility] [place] [address] Xuan Mckoen MD Fibromyalgia 11/09/2024 Telephone [facility] [address] [facility] [place] [address] Nydia Bartlett RN Results 11/08/2024 Orders Only GENERIC EXTERNAL DATA DEPARTMENT Provider, Generic External Data 11/02/2024 Refill [facility] [address] [facility] [place] [address] Xuan Mckeon MD Urticaria 11/01/2024 Telephone [facility] MEDICINE [address] [place] [address] Meliza Cleveland, NILDA Paperwork/Forms 10/31/2024 1:00 PM EST Office Visit [facility] ADULT [facility] [address] [facility] [place] [address] Chris Rodrgio, SUNIL Cerebrovascular accident (CVA), unspecified mechanism (CMS/HCC) (Primary Dx) 10/24/2024 Refill [facility] [address] [facility] [place] [address] Xuan Mckeon MD Dyslipidemia; Vitamin deficiency 10/18/2024 Refill [facility] MED[facility] [address] [place] [address] Xuan Mckeon MD Fibromyalgia 10/10/2024 11:30 AM EST Office Visit [facility] [address] [place] [address] Xuan Mckeon MD Primary hypertension (Primary Dx); Type 2 diabetes mellitus without complication, without long-term current use of insulin (CMS/HCC); Dietary counseling; Exercise counseling; Class 1 obesity due to excess calories with serious comorbidity and body mass index (BMI) of 31.0 to 31.9 in adult; Hypokalemia; Anxiety; Dyslipidemia; Allergic reaction, subsequent encounter; History of diverticulitis 10/10/2024 Travel 10/05/2024 Telephone [facility] MEDICINE [address] [place] [phone] Carla Judge MA chart prep 09/25/2024 Refill [facility] [place] [address] Xuan Mckeon MD Vitamin B12 deficiency 09/21/[address] [address] Nydia Bartlett RN Results 09/20/2024 2:30 PM EST Clinical Support [facility] [place] [address] Jocelyn Chung, NILDA Primary hypertension 09/20/2024 Orders Only [address] [address] Xuan Mckeon MD Left lower quadrant abdominal pain (Primary Dx); Diverticulitis 09/20/2024 Travel 09/20/[address] [address] Jocelyn Chung, RN Appointment Request 09/18/2024 3:30 PM EST Office Visit [facility] MED[facility]INE [address] [place] [address] Xuan Mckeon MD Primary hypertension (Primary Dx); Hypokalemia; Type 2 diabetes mellitus without complication, without long-term current use of insulin ([facility]); Allergic reaction, initial encounter; Fibromyalgia 09/18/2024 Travel 09/18/2024 Telephone [facility] MEDICINE [address] [place] [address] Meliza Cleveland RN ER Follow-up 09/15/2024 Refill [facility] MED[facility]INE [address] [place], [place] [phone] Xuan Mckeon MD from Last 3 Months Immunizations Name Administration [...] Description 01/11/2025 10:15 AM EDT Office Visit [facility] MEDICINE [address] [place] [address] Xuan Mckeon MD [address] [place], [place] [phone] 02/02/2025 11:30 AM EDT Medication Management [facility] MEDICINE [address] [place], [place] [phone] Yariel Schmid, PharmD [address] [place], [place] [phone] Health Maintenance Due Date Last Done Comments [...] Exam 02/23/2025 02/23/2023 Diabetes: Hemoglobin A1C 04/09/2025 02/04/2 025, 09/18/2024, 04/26/2024, Additional history exists Depression Screening 05/30/2025 05/30/2024, 05/30/20 Diabetes: Foot Exam 05/30/2025 05/30/2024, 05/30/2024, 05/30/2024, Additional history exists SDOH Screening 05/30/2025 05/30/2024 Alcohol/Substance Use Screening 09/18/2025 09/18/2024 Tobacco Screening 10/10/2025 10/10/2024 Diabetes: Urine Protein Screening 11/08/2025 11/08/2024, 06/08/2024, 06/16/2023, Additional history exists Lipid Panel 11/08/2025 11/08/2024, 11/2023, 06/16/2023, Additional history exists Mammogram 2026 2024, 11/05, 05/19/2019, Additional history exists Colorectal Cancer Screening [...] Blood Pressure 156/90( 025 11:57 AM EST) Yariel Campa, Leelee Procedures Procedure Name Priority Date/Time Associated Diagnosis Comments NO CHARGE VISIT Routine 12/05/2024 1:30 PM EDT BASIC METABOLIC PANEL Routine 11/08/2024 9:12 AM EST URINALYSIS, COMPLETE Routine 11/08/2024 9:12 AM EST ALBUMIN, RANDOM URINE W/CREATININE Routine 11/08/2024 9:12 AM EST Type 2 diabetes mellitus without complication, without long-term current use of insulin (CMS/HCC) LIPID PANEL WITH REFLEX TO DIRECT LDL Routine 11/08/2024 9:12 AM EST Type 2 diabetes mellitus without complication, without long-term current use of insulin (CMS/HCC) MAGNESIUM Routine 11/08/2024 9:12 AM EST Hypokalemia BASIC METABOLIC PANEL Routine 11/08/2024 9:12 AM EST Hypokalemia CASE PRESENTATION, DETAILED AND EXTENSIVE TREATMENT PLANNING Routine 10/31/2024 1:00 PM EST INTRAORAL - PERIAPICAL FIRST RADIOGRAPHIC IMAGE Routine 10/31/2024 1:00 PM EST PALLIATIVE (EMERGENCY) TREATMENT OF DENTAL PAIN - MINOR PROCEDURE Routine 10/31/2024 1:00 PM EST POCT GLYCOSYLATED HEMOGLOBIN (HGB A1C) Routine 10/10/2024 11:58 AM EST Type 2 diabetes mellitus without complication, without long-term current use of insulin ([facility]) POCT GLUCOSE Routine 10/10/2024 11:46 AM EST [...] TOMOSYNTHESIS BILATERAL Routine 2024 9:15 AM EDT FIT DNA/COLOGUARD CANCER SCREENING Routine 01/12/2024 DIABETES [...] Relevant to Health Maintenance Results * (ABNORMAL) Lipid Panel with Reflex to Direct LDL (11/08/2024 9:12 AM EST) Triglycerides 229(H) <150 mg/dL [facility] Comment:Desirable Triglyceri de: less than 150 mg/dLBorderline High Triglyceride 150-199 mg/dLHigh Triglyceride: 200-499 mg/dLVery High Triglyceride: greater than or equal to 5OO mg/dL Cholesterol 166 <200 mg/dL [facility] Comment:Desirable Cholestero l: less than 200 mg/dLBorderline High Cholesterol: 200-239 mg/dLHigh Cholesterol: greater than 239 mg/dL LDL Cholesterol Calculated 83 <100 mg/dL [facility] Comment:Desirable LDL: less than 100 mg/dLNear Optimal/Above Optimal LDL: 110- 129 mg/dLBorderline High LDL: 130-159 mg/dLHigh LDL: 160-189 mg/dLVery High LDL: greater than or equal to 190 mg/dL HDL Cholesterol 38(L) >40 mg/dL [facility] Comment:Desirable HDL: great er than 40 mg/dL Note: This HDL assay may give artificially low results in patients with liver disease. Blood 11/08/2024 9:12 AM EST 11/08/2024 11:25 AM EST Xuan Mckeon MD LAB BLOOD ORDERABLES Final Resul t Performing Organization Address [facility] de Phone Number [facility] [address] [place] [phone] * Albumin, Random Urine W/Creatinine (11/08/2024 9:12 AM EST) Creatinine, Urine 161.01 mg/dL [facility] Microalbumin Urine 6.0 mg/L [facility] Microalbum Creatinine Ratio Ur 3.7 <30 ug/mg cr [facility] Comment:Albumin/Creatinine R atio Reference Ranges: Normal: < 30 ug/mg creatinine Microalbuminuria: 30 - 300 ug/mg creatinineClinical Albuminuria: > 300 ug/mg creatinine Urine 11/08/2024 9:12 AM EST 11/08/2024 11:25 AM EST us Xuan Mckeon MD LAB URINE ORDERABLES Final Resul t Performing Organization Address [facility] de Phone Number [facility] [address] [place] [phone] * (ABNORMAL) Urinalysis Complete (11/08/2024 9:12 AM EST) Color Urine Yellow [facility] Appearance Urine Clear [facility] PH 6.0 5.0 - 9.0 [facility] Glucose Urine UA Negative Negative mg/dL [facility] Urine Blood Negative Negative [facility] Specific [place] - Urine 1.020 1.005 - 1.025 [facility] Urine Protein Negative Neg-Trace mg/dL [facility] Urine Ketones Negative Negative mg/dL [facility] Nitrite Urine Negative Negative [facility] Leukocyte Esterase Urine Trace(A) Negative [facility] RBC Urine 0-2 0 - 2 /HPF [facility] Urine WBC 11-20(A) 0 - 5 /HPF [facility] Urine Squamous Epithelial Cell 0-2 0 - 2 /HPF [facility] Urine Bacteria 3+ None Seen [facility] Hyaline Casts, Urine 0-2 0 - 2 /LPF [facility] 11/08/2024 9:12 AM EST 11/08/2024 11:25 AM EST us Generic External Data Provider LAB URINE ORDERAB LES Final Result Performing Organization Address [facility] de Phone Number [facility] [address] [place] [phone] * Magnesium (11/08/2024 9:12 AM EST) Only the most recent of2 resultswithin the time period is included. Magnesium 1.8 1.6 - 2.6 mg/dL [facility] Blood Venous blood specimen / Unknown 11/08/2024 9:12 AM EST 11/08/2024 11:25 AM EST us Xuan Mckeon MD LAB BLOOD ORDERABLES Final Resul t Performing Organization Address [facility] Co de Phone Number [facility] [address] [place] [phone] * (ABNORMAL) Basic Metabolic Panel (11/08/2024 9:12 AM EST) Only the most recent of3 resultswithin the time period is included. Sodium 139 135 - 145 mmol/L [facility] Potassium 3.8 3.3 - 5.1 mmol/L [facility] Chloride 103 96 - 108 mmol/L [facility] Carbon Dioxide 31(H) 22 - 29 mmol/L [facility] Anion Gap 9(L) 12 - 20 [facility] Urea Nitrogen (BUN) 12 9 - 16 mg/dL [facility] Creatinine, Serum 0.73 0.5 - 1.4 mg/dL [facility] Estimated Glomerular Filt Rate >60 [facility] Comment:Chronic Kidney Disea se: Estimated GFR < 60 mL/min/1.20w4Pahsms Kidney Disease: Estimated GFR < 15 mL/min/1.73m2 Glucose 112 60 - 115 mg/dL [facility] Calcium 9.3 8.4 - 10.2 mg/dL [facility] 11/08/2024 9:12 AM EST 11/08/2024 11:25 AM EST Generic External Data Provider LAB BLOOD ORDERAB LES Final Result [facility] [address] [place] [phone] * (ABNORMAL) POCT glycosylated hemoglobin (Hgb A1c) (10/10/2024 11:58 AM EST) Only the most recent of2 resultswithin the time period is included. Hemoglobin A1C 6.9(A) 4.0 - 6.0 % QC Media Lot # [id number] Lot# Expiration Date 101182,02 6 Blood Capillary blood specimen / Unknown 10/10/2024 11:58 AM EST Xuan Mckeon MD POINT OF CARE TEST ENTER/EDIT OR DERABLES Final Result * POCT glucose manually resulted (10/10/2024 11:46 AM EST) Only the most recent of2 resultswithin the time period is included. Glucose Blood, POC 158 60 - 200 mg/dL [employer] Media Lot # [id number] Lot# Expiration Date ,025 Blood Capillary blood specimen / Unknown 10/10/2024 11:46 AM EST Xuan Mckeon MD POINT OF CARE TEST ENTER/EDIT OR DERABLES Final Result * (ABNORMAL) CBC auto differential (09/21/2024 9:16 AM EST) White Blood Count 6.2 4.8 - 10.8 X10*3/uL [facility] Red Blood Count 3.99(L) 4.20 - 5.50 X10*6/uL [facility] Hemoglobin 12.4 12.0 - 16.0 g/dl [facility] Hematocrit 36.3(L) 37.0 - 47.0 % [facility] Mean Corpuscular Volume 91.0 80.0 - 98.0 fL [facility] Mean Corpuscular Hemoglobin 31.1 27.0 - 33.0 pg [facility] Mean Corpuscular HGB Conc 34.2 31.0 - 35.0 g/dl [facility] Red Cell Distribution Width 12.5 11.0 - 16.0 % [facility] Platelet Count 288 160 - 400 X10*3/uL [facility] Mean Platelet Volume 10.5 9.4 - 12.3 fL [facility] Neutrophils Percent Auto 70.5 45 - 73 % [facility] Imm Gran Pct Auto 0.3 0.0 - 0.4 % [facility] Lymphocytes Percent Auto 20.0 20 - 40 % [facility] Monocytes Percent Auto 7.1 2 - 11 % [facility] Eosinophils Percent Auto 1.6 0 - 4 % [facility] Basophils Percent Auto 0.5 0 - 2 % [facility] NRBC Pct Auto 0.0 0.0 - 0.2 /100WBC [facility] Neutrophils Absolute Auto 4.3 2.0 - 8.3 x10*3/uL [facility] Imm Gran Abs Auto 0.02 0.00 - 0.03 X10*3/uL [facility] Lymphocytes Absolute Auto 1.2 1.2 - 4.9 X10*3/uL [facility] Monocytes Absolute Auto 0.4 0.1 - 1.2 X10*3/uL [facility] Eosinophils Absolute Auto 0.1 0.0 - 0.4 X10*3/uL [facility] Basophils Absolute Auto 0.0 0.0 - 0.2 X10*3/uL [facility] NRBC Abs Auto 0.000 0.0 - 0.012 X10*3/uL [facility] Blood Venous blood specimen / Unknown 09/21/2024 9:16 AM EST 09/21/2024 11:12 AM EST us Xuan Mckeon MD LAB BLOOD ORDERABLES Final Resul t Performing Organization Address [facility] Co de Phone Number [facility] [address] [place] [phone] * (ABNORMAL) Sed Rate by Modified Westergren (09/21/2024 9:16 AM EST) Erythrocyte Sedimentation Rate 25(H) 0 - 20 MM/HR [facility] Comment:Patients with polycy themia and many hemoglobin abnormalitiesmay have depressed sed rates whereas patients with anemiamay have elevated sed rates. Blood Venous blood specimen / Unknown 09/21/2024 9:16 AM EST 09/21/2024 11:12 AM EST us Xuan Mckeon MD LAB BLOOD ORDERABLES Final Resul t Performing Organization Address [facility] Co de Phone Number [facility] [address] [place] [phone] * (ABNORMAL) C-reactive Protein (09/21/2024 9:16 AM EST) C Reactive Protein 0.96(H) < or = 0.50 mg/dL [facility] Blood Venous blood specimen / Unknown 09/21/2024 9:16 AM EST 09/21/2024 11:12 AM EST us Xuan Mckeon MD LAB BLOOD ORDERABLES Final Resul t Performing Organization Address [facility] Co de Phone Number [facility] [address] [place] [phone] * BI Mammogram Screening Tomosynthesis Bilateral (2024 9:15 AM EDT) Anatomical Region Laterality Modality Breast Bilateral Mammography 2024 9:15 AM EDT Narrative 06/15/2024 7:13 PM EDT ? [facility] [place] ? [address] ?[place] [address] ? Mammography Report ? Signed ? Patient: Che Person ?MR ?? #: [id number] ? : 1950 ?Acct:[id number] ? Age/Sex: 74 / F ?ADM Date: 06/06/24 ? Loc: HO.MAMMO ? Attending Dr: Xuan Mckeon MD ? Ordering Physician: Xuan Mckeon MD ?Results: 1Negative ? Date of Service: 06/06/24 ?Follow Up: 1 Year From Orig ?? inal Mammogram ? Procedure(s): MM tomosynthesis screening BI ?? Accession Number(s): [id number] ? cc: Xuan Mckeon MD ? EXAMINATION: [...] by Urvashi Blanton, DO in OV> ? 06/15/24 1910 ? DD/ ? TD/TT: 06/06/24919 ? Trucking Manager: ? Procedure Note Joeyalesiakathrynmary, Image - 06/15/2024 [facility] [address] [place] [address] Mammography Report Signed Patient: Gaby WeaverJamalBridgette #: [id number] : 1950cct:[id number] Age/Sex: 74 / FADM Date: 06/06/24 Loc: [facility] Attending Dr: Xuan Mckeon MD Ordering Physician: Xuan Mckeon MDResults: 1Negative Date of Service: 06/06/24Follow Up: 1 Year From Orig inal Mammogram Procedure(s): MM tomosynthesis screening BI Accession Number(s): [id number] cc: Xuan Mckeon MD EXAMINATION: MM SCREENING [...] Urvashi Blanton DO 06/15/2024 07:10 PM EDT RP Dictated By: Urvashi Blanton DO Signed By: <Electronically signed by Urvashi Blanton DO in OV> 06/15/24 1910 DD/ 4 TD/TT: 06/06/24919 Trucking Manager: Xuan Mckeon MD IMG BI PROCEDURES Edited Result - Final * FIT DNA/Cologuard Cancer Screening (01/12/2024) Pathologist [facility] Cologuard Cancer Screen Negative Stool Historical Provider HEALTH MAINTENANCE Final Result * Hm Diabetes Eye Exam (02/23/2023) Pathologist [facility] Eye Exam Normal Normal, BIRADS 0 , BIRADS 1 , BIRADS 2, BIRADS 3 , BIRADS 4+ 02/23/2023 Historical Provider HEALTH MAINTENANCE Final Result * HEPATITIS C AB W/REFL TO HCV RNA, QN, PCR (10/23/2020 8:55 AM EST) Pathologist [facility] HEPATITIS C ANTIBODY NON-REACT ADAMA NON-REACT ADAMA [facility] INDEX 0.01 <1.00 [facility] Comment: ?? HCV antibody was non-reactive. There is no laboratory ?? evidence of HCV infection. ?? In most cases, no further action is required. However, if recent HCV exposure is suspected, a test for HCV RNA (test code 63762) is suggested. ?? For additional information please refer to [email or web address]/[email or web address] (This link is being provided for informational/ educational purposes only.) ?? 10/23/2020 8:55 AM EST us Xuan Mckeon MD HISTORICAL/NON ORDERABLE LABS Fi nal Result [facility] [address] from Last 3 Months or Most Recently Relevant to Health Maintenance Insurance [facility] - [facility] Care Teams Piano Professor Relationship Specialty Start Date End Date Xuan Mckeon MD [address] [place] [address] PCP - General Family Medicine 09/20/20 Yariel Schmid, CristóbalD [address] [place] [address] Pharmacist Internal Medicine 11/23/22
--- OUTSIDE RECORDS SUMMARY | 2024-12-06 10:52 | XMS_ITS | Encounter Summary ---
Author Organization [employer] Address 75 [facility] 7t [place] [address] Care Team Providers Care Escapement Matcher Name Role Phone Xuan Mckeon MD Primary Care Provider [phone] Yariel Schmid PharmD Unavailable [phone] Reason for Referral * Consultation (Routine) - Closed Specialty Diagnoses / Procedures Referred By Contac t Referred To Contact Family Medicine Diagnoses Dermatitis Xuan Mckeon MD 230 [place] [address] Phone: tel: fax: Referral ID Status Reason Start Date Expiration Date V isits Requested Visits Authorized [id number] Closed Specialty Services Required 12/24/2023 12/23/2024 1 1 Encounter Details Date Type Department Care Team (Late st Contact Info) Description 12/24/2023 Orders Only [facility] MEDICINE [address] [place], [place] [phone] Xuan Mckeon MD [address] [place], [place] [phone] Dermatitis (Primary Dx) Social History Tobacco Use [...] Description 01/11/2025 10:15 AM EDT Office Visit [facility] MEDICINE [address] [place] [address] Xuan Mckeon MD [address] [place] [address] 02/02/2025 11:30 AM EDT Medication Management [facility] MEDICINE [address] [place] [address] Yariel Schmid, CristóbalD [address] [place] [address] Scheduled Referrals Name Type Priority Associated Diagnoses Orde r Schedule Referral to [facility] Derm Skin Adult Outpatient Referral Routine Dermatitis [...] documented as of this encounter Care Teams Escapement Matcher Relationship Specialty Start Date End Date Xuan Mckeon MD [address] [place] [address] PCP - General Family Medicine 09/20/20 Yariel Schmid, PharmD [address] [place] [address] Pharmacist Internal Medicine 11/23/22 documented as of this encounter
--- OUTSIDE RECORDS SUMMARY | 2024-12-06 10:52 | XMS_ITS | Encounter Summary ---
Author Organization [email or web address] Address [address] [facility] [address] 7t [place] [address] Care Team Providers Care Environmental Science Instructor Name Role Phone Xuan Mckeon MD Primary Care Provider [phone] Yariel Schmid PharmD Unavailable [phone] Reason for Visit * Reason Onset Date Comments Appointment Request 08/23/2024 Encounter Details Date Type Department Care Team ([facility] st Contact Info) Description 08/23/2024 Telephone [facility] MEDICINE 230 [place] [address] Xuan Mckeon MD [address] [place] [address] Appointment Request Social History Tobacco Use Types [...] today's CDTM visit. Please contact pt at [phone]. (Czech Speaker) documented in this encounter Plan of Treatment Upcoming Encounters Date Type Department Care Team ([facility] st Contact Info) Description 01/11/2025 10:15 AM EDT Office Visit [facility] MEDICINE [address] [place] [address] Xuan Mckeon MD [address] [place] [address] 02/02/2025 11:30 AM EDT Medication Management [facility] MEDICINE [address] [place] [address] Yariel Schmid, PharmD [address] [place] [address] documented as of this encounter Goals Goal [...] documented as of this encounter Care Teams Environmental Science Instructor Relationship Specialty Start Date End Date Xuan Mckeon MD [address] [place] [address] PCP - General Family Medicine 09/20/20 Yariel Schmid, PharmD [address] [place] [address] Pharmacist Internal Medicine 11/23/22 documented as of this encounter
--- OUTSIDE RECORDS SUMMARY | 2024-12-06 10:52 | XMS_ITS | Encounter Summary ---
Author Organization [employer] Address [address] [facility] [address] 7t [place] [address] Care Team Providers Care Driver'S License Examiner Name Role Phone Xuan Mckeon MD Primary Care Provider [phone] Yariel Schmid PharmD Unavailable [phone] Reason for Visit * Reason Comments Med Refill Encounter Details Date Type Department Care Team ([facility] st Contact Info) Description 10/05/2023 Refill [facility] MEDICINE 230 [place], [place] [phone] Xuan Mckeon MD 230 [place], [place] [phone] Vitamin B12 deficiency Social History Tobacco Use [...] [facility] [address] [place] [address] Xuan Mckeon MD [address] [place] [address] 02/02/2025 11:30 AM EDT Medication Management [facility] MEDICINE [address] [place] [address] Yariel Schmid PharmD [address] [place] [address] documented as of this encounter Goals Goal [...] documented as of this encounter Care Teams Driver'S License Examiner Relationship Specialty Start Date End Date Xuan Mckeon MD [address] [place] [address] PCP - General Family Medicine 09/20/20 Yariel Schmid, PharmD [address] [place] [address] Pharmacist Internal Medicine 11/23/22 documented as of this encounter
--- OUTSIDE RECORDS SUMMARY | 2024-12-06 10:52 | XMS_ITS | Encounter Summary ---
Author Organization [employer] [facility] Address 75 [facility] 7t [place] [address] Care Team Providers Care Bar Assistant Name Role Phone Xuan Mckeon MD Primary Care Provider [phone] Yariel Schmid PharmD Unavailable [phone] Encounter Details Date Type Department Care Team (Latest Contact Info) Description 01/23/2022 Abstract [facility] CONVERSIONS Dental, Provider, DDS Social History Tobacco [...] Upcoming Encounters Date Type Department Care Team ( st Contact Info) Description 01/11/2025 10:15 AM EDT Office Visit [facility] MEDICINE [address] [place] [address] Xuan Mckeon MD 230 [place] [address] 02/02/2025 11:30 AM EDT Medication Management [facility] MEDICINE [address] [place] [address] Yariel Schmid, PharmD 230 [place] [address] documented as of this encounter Visit Diagnoses Not on filedocumented in this encounter Care Teams Bar Assistant Relationship Specialty Start Date End Date Xuan Mckeon MD 230 [place] [address] PCP - General Family Medicine 09/20/20 Yariel Schmid, CristóbalD 230 [place] [address] Pharmacist Internal Medicine 11/23/22 documented as of this encounter
--- OUTSIDE RECORDS SUMMARY | 2024-12-06 10:52 | XMS_ITS | Encounter Summary ---
Author Organization [employer] Address [address] [facility] [address] 7t [place] [address] Care Team Providers Care Drilling Engineering Manager Name Role Phone Xuan Mckeon MD Primary Care Provider [phone] Yariel Schmid PharmD Unavailable [phone] Encounter Details Date Type Department Care Team (Late st Contact Info) Description 10/22/2023 Orders Only [facility] MEDICINE 230 [place], [place] [phone] Xuan Mckeon MD 230 [place], [place] [phone] Social History Tobacco Use Types Packs/Day Years [...] Description 01/11/2025 10:15 AM EDT Office Visit [facility] MEDICINE [address] [place] [address] Xuan Mckeon MD [address] [place] [address] 02/02/2025 11:30 AM EDT Medication Management [address] [address] Yariel Schmid, PharmD [address] [place] [address] documented as of this encounter Goals Goal [...] documented as of this encounter Care Teams Drilling Engineering Manager Relationship Specialty Start Date End Date Xuan Mckeon MD [address] [place] [address] [phone] PCP - General Family Medicine 09/20/20 Yariel Schmid PharmD [address] [place] [address] [phone] Pharmacist Internal Medicine 11/23/22 documented as of this encounter
--- OUTSIDE RECORDS SUMMARY | 2024-12-06 10:52 | XMS_ITS | Encounter Summary ---
Author Organization [employer] Address [address] [facility] [address] 7t [place] [address] Care Team Providers Care Correctional Substance Abuse Counselor Name Role Phone Xuan Mckeon MD Primary Care Provider [phone] Yariel Schmid PharmD Unavailable [phone] Reason for Visit * Reason Comments Med Refill Encounter Details Date Type Department Care Team ([facility] st Contact Info) Description 10/18/2024 Refill [facility] MEDICINE 230 [place], [place] [phone] Xuan Mckeon MD 230 [place], [place] [phone] Fibromyalgia Social History Tobacco Use Types Packs/Day [...] Description 01/11/2025 10:15 AM EDT Office Visit [address] [address] Xuan Mckeon MD [address] [place] [address] 02/02/2025 11:30 AM EDT Medication Management [address] [address] Yariel Schmid PharmD [address] [place] [address] documented as of this encounter Goals Goal [...] documented as of this encounter Care Teams Correctional Substance Abuse Counselor Relationship Specialty Start Date End Date Xuan Mckeon MD [address] [place] [address] PCP - General Family Medicine 09/20/20 Yariel Schmid, Leelee [address] [place] [address] Pharmacist Internal Medicine 11/23/22 documented as of this encounter
--- OUTSIDE RECORDS SUMMARY | 2024-12-06 10:52 | XMS_ITS | Encounter Summary ---
Author Organization [employer] Address 75 [facility] 7t [place] [address] Care Team Providers Care Senior Bi Developer Name Role Phone Xuan Mckeon MD Primary Care Provider [phone] Yariel Schmid PharmD Unavailable [phone] Reason for Visit * Reason Comments Med Refill Encounter Details Date Type Department Care Team ([facility] Contact Info) Description 10/06/2022 Refill [facility] MED & PEDS [address] [place], [place] [phone] Ofelia Akhtar ANP 230 [place] [address] Other specified anxiety disorders Social History Tobacco [...] Upcoming Encounters Date Type Department Care Team ([facility] Contact Info) Description 01/11/2025 10:15 AM EDT Office Visit [facility] MEDICINE 230 [place], [place] [phone] Xuan Mckeon MD 230 [place] [address] 02/02/2025 11:30 AM EDT Medication Management [facility] MEDICINE [address] [place], [place] [phone] Yariel Schmid, PharmD 230 [place] [address] documented as of this encounter Visit Diagnoses Diagnosis Other specified anxiety disorders documented in this encounter Care Teams Senior Bi Developer Relationship Specialty Start Date End Date Xuan Mckeon MD [address] [place] [address] [phone] PCP - General Family Medicine 09/20/20 Yariel Schmid, PharmD [address] [place] [address] [phone] Pharmacist Internal Medicine 11/23/22 documented as of this encounter
--- OUTSIDE RECORDS SUMMARY | 2024-12-06 10:52 | XMS_ITS | Encounter Summary ---
Author Organization [employer] Address [address] [facility] [address] 7t [place] [address] Care Team Providers Care Lap Hand Tool Name Role Phone Xuan Mckeon MD Primary Care Provider [phone] Yariel Schmid PharmD Unavailable [phone] Reason for Visit * Reason Comments Dental Pain Encounter Details Date Type Department Care Team (Late st Contact Info) Description 12/05/2024 1:30 PM EDT Office Visit [facility] D[facility]AL 230 [place] [address] Rodrigo Perez DDS [address] [place], [place] [phone] Social History Tobacco Use Types Packs/Day Years [...] Progress Notes * Rodrigo Perez DDS - 12/05/2024 1:30 PM EDT Patient presented for the extraction of #22. Medical clearance was reviewed with the patient. Her physician advised that medication should be discontinued five days in advance if a complex surgical procedure with significant bleeding is planned. Since only a single tooth (#22) is scheduled for extraction today, the patient was informed that discontinuation of her medication is not necessary. However, she reported a history of prolonged bleeding even from minor skin injuries and expressed a desire to speak with her physician for reassurance before proceeding. She is currently asymptomatic and will contact our office after consulting with her doctor. documented in this encounter Plan of Treatment Upcoming Encounters Date Type Department Care Team (Late st Contact Info) Description 01/11/2025 10:15 AM EDT Office Visit [facility] MEDICINE [address] [place] [address] Xuan Mckeon MD [address] [place] [address] 02/02/2025 11:30 AM EDT Medication Management [facility] MEDICINE 230 [place] [address] Yariel Schmid, PharmD 230 [place] [address] Scheduled Orders Name Type Priority Associated Diagnoses Orde r Schedule 22 22 EXTRACTION, ERUPTED TOOTH OR EXPOSED ROOT (ELEVATION/FORCEPS REMOVAL) Dental Routine [address] arting 12/05/2024 documented as of this encounter Goals Goal Patient Goal Type Associated Problems Recent Progress Patient-Stated? Author Blood Pressure < 140/90 Blood Pressure 156/90( 025 11:57 AM EST) No Yariel Schmid, rCistóbalD documented as of this encounter Procedures Procedure Name Priority Date/Time Associated Diagnosis Comments NO CHARGE VISIT Routine 12/05/2024 1:30 PM EDT documented in this encounter Visit Diagnoses Not on filedocumented in this encounter Additional Health Concerns Assessment Noted Time PHQ-9 Depression Total Score: 11 024 10:30 AM EDT documented as of this encounter Care Teams Lap Hand Tool Relationship Specialty Start Date End Date Xuan Mckeon MD [address] [place] [address] PCP - General Family Medicine 09/20/20 Yariel Schmid, CristóbalD [address] [place] [address] Pharmacist Internal Medicine 11/23/22 documented as of this encounter
--- OUTSIDE RECORDS SUMMARY | 2024-12-06 10:52 | XMS_ITS | Encounter Summary ---
Author Organization [employer] Address [address] [facility] [address] 7t [place] [address] Care Team Providers Care Warp Clamper Name Role Phone Xuan Mckeon MD Primary Care Provider [phone] Yariel Schmid PharmD Unavailable [phone] Reason for Visit * Reason Comments Med Refill Encounter Details Date Type Department Care Team ([facility] st Contact Info) Description 09/08/2023 Refill [facility] MEDICINE 230 [place], [place] [phone] Xuan Mckeon MD 230 [place], [place] [phone] Other specified anxiety disorders Social History Tobacco [...] Description 01/11/2025 10:15 AM EDT Office Visit [facility] MEDICINE [address] [place] [address] Xuan Mckeon MD [address] [place] [address] 02/02/2025 11:30 AM EDT Medication Management [facility] MEDICINE [address] [place] [address] Yariel Schmid PharmD [address] [place] [address] documented as of this encounter Goals Goal [...] documented as of this encounter Care Teams Warp Clamper Relationship Specialty Start Date End Date Xuan Mckeon MD [address] [place] [address] PCP - General Family Medicine 09/20/20 Yariel Schmid PharmD [address] [place] [address] Pharmacist Internal Medicine 11/23/22 documented as of this encounter
--- OUTSIDE RECORDS SUMMARY | 2024-12-06 10:52 | XMS_ITS | Encounter Summary ---
Author Organization [employer] Address 75 [facility] 7t [place] [address] Care Team Providers Care Supervisor Screen Printing Name Role Phone Xuan Mckeon MD Primary Care Provider [phone] Yariel Schmid PharmD Unavailable [phone] Reason for Visit * Reason Comments Med Refill Encounter Details Date Type Department Care Team (Late Contact Info) Description 03/18/2023 Refill [facility] MED [facility] PEDS 505 [place], [place] [phone] Xuan Mckeon MD 230 [place], [place] [phone] Other specified anxiety disorders Social History Tobacco [...] Department Care Team (Late Contact Info) Description 01/11/2025 10:15 AM EDT Office Visit [facility] MEDICINE 230 [place], [place] [phone] Xuan Mckeon MD [address] [place], [place] [phone] 02/02/2025 11:30 AM EDT Medication Management [facility] MEDICINE 230 [place] [address] Yariel Schmid, PharmD [address] [place] [address] documented as of this encounter Goals Goal [...] documented as of this encounter Care Teams Supervisor Screen Printing Relationship Specialty Start Date End Date Xuan Mckeon MD [address] [place] [address] PCP - General Family Medicine 09/20/20 Yariel Schmid, PharmD [address] [place] [address] Pharmacist Internal Medicine 11/23/22 documented as of this encounter
--- OUTSIDE RECORDS SUMMARY | 2024-12-06 10:52 | XMS_ITS | Encounter Summary ---
Author Organization [employer] Address [address] [facility] [address] 7t [place] [address] Care Team Providers Care Failure Analysis Technician Name Role Phone Xuan Mckeon MD Primary Care Provider [phone] Yariel Schmid PharmD Unavailable [phone] Encounter Details Date Type Department Care Team (Late st Contact Info) Description 12/06/2023 Orders Only [facility] MEDICINE 230 [place], [place] [phone] Xuan Mckeon MD 230 [place], [place] [phone] Social History Tobacco Use Types Packs/Day Years [...] Description 01/11/2025 10:15 AM EDT Office Visit [facility] MEDICINE [address] [place] [address] Xuan Mckeon MD [address] [place] [address] 02/02/2025 11:30 AM EDT Medication Management [address] [address] Yariel Schmid, PharmD [address] [place] [address] documented as of this encounter Goals Goal [...] documented as of this encounter Care Teams Failure Analysis Technician Relationship Specialty Start Date End Date Xuan Mckeon MD [address] [place] [address] [phone] PCP - General Family Medicine 09/20/20 Yariel Schmid PharmD [address] [place] [address] [phone] Pharmacist Internal Medicine 11/23/22 documented as of this encounter
--- OUTSIDE RECORDS SUMMARY | 2024-12-06 10:52 | XMS_ITS | Encounter Summary ---
Author Organization [employer] [facility] Address 75 [facility] 7t [place] [address] Care Team Providers Care Grain Grader Name Role Phone Xuan Mckeon MD Primary Care Provider [phone] Yariel Schmid PharmD Unavailable [phone] Reason for Referral * Consultation (Routine) - Authorized Specialty Diagnoses / Procedures Referred By Contac t Referred To Contact Pharmacy Diagnoses Primary hypertension Type 2 diabetes mellitus without complication, without long-term current use of insulin (CMS/HCC) Xuan Mckeon MD 230 [place] [address] Phone: tel: fax: Referral ID Status Reason Start Date Expiration Date Visits Requested Visits Authorized [id number] Authorized Consult and Treat 07/18/2024 07/18/2025 6 6 Encounter Details Date Type Department Care Team (Late st Contact Info) Description 07/18/2024 Orders Only [facility] [facility] MEDICINE [address] [place] [address] [phone] Xuan Mckeon MD [address] [place], [place] [phone] Primary hypertension (Primary Dx); Type 2 diabetes [...] is your housing situation today? I have jennifre yao 05/30/[address] you [...] Description 01/11/2025 10:15 AM EDT Office Visit [facility] MEDICINE [address] [place] [address] Xuan Mckeon MD [address] [place] [address] 02/02/2025 11:30 AM EDT Medication Management [facility] MEDICINE [address] [place] [address] Yariel Schmid, PharmD [address] [place] [address] Scheduled Referrals Name Type Priority Associated Diagnoses Orde r Schedule Referral to Pharmacy CDTM Outpatient Referral Routine Primary hypertension Type 2 diabetes mellitus without complication, without long-term current use of insulin ([facility]) Ordered: 07/18/2024 documented as of this encounter Goals Goal Patient Goal Type Associated Problems Recent Progress Patient-Stated? Author Blood Pressure < 140/90 Blood Pressure 156/90( 025 11:57 AM EST) No Yariel Schmid, Leelee documented as of this encounter Visit Diagnoses Diagnosis Primary hypertension- Primary Unspecified essential hypertension Type 2 diabetes mellitus without complication, without long-term current use of insulin ([facility]) documented in this encounter Additional Health Concerns Assessment Noted Time PHQ-9 Depression Total Score: 11 024 10:30 AM EDT documented as of this encounter Care Teams Grain Grader Relationship Specialty Start Date End Date Xuan Mckeon MD 230 [place] [address] PCP - General Family Medicine 09/20/20 Yariel Schmid, CristóbalD [address] [place] [address] Pharmacist Internal Medicine 11/23/22 documented as of this encounter
--- OUTSIDE RECORDS SUMMARY | 2024-12-06 10:52 | XMS_ITS | Encounter Summary ---
Author Organization [employer] Address [address] [facility] [address] 7t [place] [address] Care Team Providers Care Air Defense Control Officer Name Role Phone Xuan Mckeon MD Primary Care Provider [phone] Yariel Schmid PharmD Unavailable [phone] Reason for Visit * Reason Onset Date Comments medical clearance for dental question 12/05/2024 Encounter Details Date Type Department Care Team (Late st Contact Info) Description 12/05/2024 Telephone [facility] MEDICINE 230 [place], [place] [phone] Xuan Mckeon MD 230 [place], [place] [phone] medical clearance for dental question Social History Tobacco Use Types Packs/Day Years [...] encounter Miscellaneous Notes * Telephone Encounter - Jagruti Rios - 12/05/2024 2:53 PM EDT Patient walked in requesting call back, said PCP fill out a medical clearance for dental (is havingan extraction) and on the document PCP put that she should stop one of her medications for at least5 days. Patient question is why? And if she really needs to wait the 5 day...(Patient asking if itsa blood thinner?) Patient unsure of medication name. documented in this encounter Plan of Treatment Upcoming Encounters Date Type Department Care Team (Late st Contact Info) Description 01/11/2025 10:15 AM EDT Office Visit [facility] MED[facility]INE [address] [place] [address] Xuan Mckeon MD 230 [place] [address] 02/02/2025 11:30 AM EDT Medication Management [facility] MEDICINE [address] [place] [address] Yariel Schmid, CristóbalD 230 [place] [address] documented as of this encounter Goals Goal [...] documented as of this encounter Care Teams Air Defense Control Officer Relationship Specialty Start Date End Date Xuan Mckeon MD 230 [place] [address] PCP - General Family Medicine 09/20/20 Yariel Schmid, PharmD 230 [place] [address] Pharmacist Internal Medicine 11/23/22 documented as of this encounter
--- OUTSIDE RECORDS SUMMARY | 2024-12-06 10:52 | XMS_ITS | Encounter Summary ---
Author Organization [employer] Address [address] [facility] [address] [place] [address] Care Team Providers Care Server Name Role Phone Xuan Mckeon MD Primary Care Provider [phone] Yariel Schmid PharmD Unavailable [phone] Reason for Visit * Reason Comments Med Refill Encounter Details Date Type Department Care Team ([facility] st Contact Info) Description 03/06/2024 Refill [facility] [address] [place], [place] [phone] Ofelia Akhtar ANP [address] [place], [place] [phone] Other specified anxiety disorders Social History Tobacco [...] Description 01/11/2025 10:15 AM EDT Office Visit [facility] [address] [place] [address] Xuan Mckeon MD [address] [place] [address] 02/02/2025 11:30 AM EDT Medication Management [facility] [address] [place] [address] Yariel Schmid PharmD [address] [place] [address] documented as of this encounter Goals Goal [...] documented as of this encounter Care Teams Server Relationship Specialty Start Date End Date Xuan Mckeon MD [address] [place] [phone] PCP - General Family Medicine 09/20/20 Yariel Schmid PharmD [address] [place] [phone] Pharmacist Internal Medicine 11/23/22 documented as of this encounter
--- OUTSIDE RECORDS SUMMARY | 2024-12-06 10:52 | XMS_ITS | Clinical Summary ---
Author Organization [facility] Address [id number] [place] [id number] Care Team Providers Care Hadoop Architect Name Role Phone Unavailable Primary Care Provider [...] - Risk 3-dose series) 2011 RSV Immunization Adult Patients (1 - Risk 60-74 years 1-dose series) [...] or Tdap) 09/25/2023 09/25/2013, 11/05/2001 COVID-19 Vaccine ( season) 2024 Influenza Vaccine (Season Ended) 2025 07/26/2015, 07/25/2014, 05/19/2013, Additional history exists HIB Vaccines [...]
--- OUTSIDE RECORDS SUMMARY | 2024-12-06 10:52 | XMS_ITS | Encounter Summary ---
Author Organization [employer] Address 75 [facility] [address] [place] [address] Care Team Providers Care Extracorporeal Technician Name Role Phone Xuan Mckeon MD Primary Care Provider [phone] Yariel Schmid PharmD Unavailable [phone] Encounter Details Date Type Department Care Team (Late st Contact Info) Description 09/20/2024 Orders Only [facility] 230 [place], [place] [phone] Xuan Mckeon MD [address] [place], [place] [phone] Left lower quadrant abdominal pain (Primary Dx); [...] Description 01/11/2025 10:15 AM EDT Office Visit [facility] [address] [place] [address] Xuan Mckeon MD [address] [place] [address] 02/02/2025 11:30 AM EDT Medication Management [facility] [address] [place] [address] Yariel Schmid PharmD [address] [place] [address] documented as of this encounter Goals Goal Patient Goal Type Associated Problems Recent Progress Patient-Stated? Author Blood Pressure < 140/90 Blood Pressure 156/90( 025 11:57 AM EST) No Yariel cShmid, Leelee documented as of this encounter Procedures [...] Results * (ABNORMAL) Sed Rate by Modified [place] (09/21/2024 9:16 AM EST) Erythrocyte Sedimentation Rate 25(H) 0 - 20 MM/HR [facility] Comment:Patients with polycy themia and many hemoglobin abnormalitiesmay have depressed sed rates whereas patients with anemiamay have elevated sed rates. Blood Venous blood specimen / Unknown 09/21/2024 9:16 AM EST 09/21/2024 11:12 AM EST Xuan Mckeon MD LAB BLOOD ORDERABLES Final Resul t Performing Organization Address [facility]/ZIP Co de Phone Number [facility] [address] [place] [phone] * (ABNORMAL) C-reactive Protein (09/21/2024 9:16 AM EST) Pathologist [facility] C Reactive Protein 0.96(H) < or = 0.50 mg/dL [facility] Blood Venous blood specimen / Unknown 09/21/2024 9:16 AM EST 09/21/2024 11:12 AM EST Xuan Mckeon MD LAB BLOOD ORDERABLES Final Resul t [facility] [address] [place] [address] [phone] * (ABNORMAL) CBC auto differential (09/21/2024 9:16 AM EST) White Blood Count 6.2 4.8 - 10.8 X10*3/uL [facility] Red Blood Count 3.99(L) 4.20 - 5.50 X10*6/uL [facility] Hemoglobin 12.4 12.0 - 16.0 g/dl [facility] Hematocrit 36.3(L) 37.0 - 47.0 % [facility] Mean Corpuscular Volume 91.0 80.0 - 98.0 fL [facility] Mean Corpuscular Hemoglobin 31.1 27.0 - 33.0 pg [facility] Mean Corpuscular HGB Conc 34.2 31.0 - 35.0 g/dl [facility] Red Cell Distribution Width 12.5 11.0 - 16.0 % [facility] Platelet Count 288 160 - 400 X10*3/uL [facility] Mean Platelet Volume 10.5 9.4 - 12.3 fL [facility] Neutrophils Percent Auto 70.5 45 - 73 % [facility] Imm Gran Pct Auto 0.3 0.0 - 0.4 % [facility] Lymphocytes Percent Auto 20.0 20 - 40 % [facility] Monocytes Percent Auto 7.1 2 - 11 % [facility] Eosinophils Percent Auto 1.6 0 - 4 % [facility] Basophils Percent Auto 0.5 0 - 2 % [facility] NRBC Pct Auto 0.0 0.0 - 0.2 /100WBC [facility] Neutrophils Absolute Auto 4.3 2.0 - 8.3 x10*3/uL [facility] Imm Gran Abs Auto 0.02 0.00 - 0.03 X10*3/uL [facility] Lymphocytes Absolute Auto 1.2 1.2 - 4.9 X10*3/uL [facility] Monocytes Absolute Auto 0.4 0.1 - 1.2 X10*3/uL [facility] Eosinophils Absolute Auto 0.1 0.0 - 0.4 X10*3/uL [facility] Basophils Absolute Auto 0.0 0.0 - 0.2 X10*3/uL [facility] NRBC Abs Auto 0.000 0.0 - 0.012 X10*3/uL [facility] Blood Venous blood specimen / Unknown 09/21/2024 9:16 AM EST 09/21/2024 11:12 AM EST Xuan Mckeon MD LAB BLOOD ORDERABLES Final Resul t [facility] [address] [place] [phone] documented in this encounter Visit Diagnoses Diagnosis Left lower quadrant abdominal pain- Primary Diverticulitis Diverticulitis of colon (without mention of hemorrhage) documented in this encounter Additional Health Concerns Assessment Noted Time PHQ-9 Depression Total Score: 11 024 10:30 AM EDT documented as of this encounter Care Teams Extracorporeal Technician Relationship Specialty Start Date End Date uXan Mckeon MD [address] [place] [address] PCP - General Family Medicine 09/20/20 Yariel Schmid, CristóbalD [address] [place] [address] Pharmacist Internal Medicine 11/23/22 documented as of this encounter
--- OUTSIDE RECORDS SUMMARY | 2024-12-06 10:52 | XMS_ITS | Encounter Summary ---
Author Organization [employer] Address 75 [facility] 7t [place] [address] Care Team Providers Care Customs Port Director Name Role Phone Xuan Mckeon MD Primary Care Provider [phone] Yariel Schmid PharmD Unavailable [phone] Encounter Details Date Type Department Care Team (Late st Contact Info) Description 09/23/2022 Orders Only [facility] [address] [place] [address] Shannon Rich LPN Social History Tobacco Use [...] Description 01/11/2025 10:15 AM EDT Office Visit [facility] [address] [place] [address] 20526 Xuan Mckeon MD [address] [place] [address] [phone] 02/02/2025 11:30 AM EDT Medication Management [facility] [address] [place] [address] [phone] Yariel Schmid, PharmD [address] [place], [place] [phone] documented as of this encounter Visit Diagnoses Not on filedocumented in this encounter Care Teams Customs Port Director Relationship Specialty Start Date End Date Xuan Mckeon MD [address] [place], [place] [phone] PCP - General Family Medicine 09/20/20 Yariel Schmid, Leelee [address] [place] [address] Pharmacist Internal Medicine 11/23/22 documented as of this encounter
--- OUTSIDE RECORDS SUMMARY | 2024-12-06 10:52 | XMS_ITS | Encounter Summary ---
Author Organization [employer] [facility] Address [address] [facility] 7t [place] [address] Care Team Providers Care Director Account Management Name Role Phone Xuan Mckeon MD Primary Care Provider [phone] Yariel Schmid PharmD Unavailable [phone] Reason for Visit * Reason Comments Med Refill Encounter Details Date Type Department Care Team (Late st Contact Info) Description 04/07/2023 Refill [facility] [address] [place] [address] [phone] Xuan Mckeon MD [address] [place] [address] [phone] Vitamin B12 deficiency Social History Tobacco Use [...] 10:15 AM EDT Office Visit [facility] [address] [place] [address] [phone] Xuan Mckeon MD [address] [place] [address] [phone] 02/02/2025 11:30 AM EDT Medication Management [facility] 230 [place] [address] Yariel Schmid, PharmD [address] [place] [address] documented as of this encounter Goals Goal [...] documented as of this encounter Care Teams Director Account Management Relationship Specialty Start Date End Date Xuan Mckeon MD [address] [place] [address] PCP - General Family Medicine 09/20/20 Yariel Schmid, PharmD [address] [place] [phone] Pharmacist Internal Medicine 11/23/22 documented as of this encounter
== END 2024-12-06 10:22 | disposition home or self-care (01) ==
LOC: HO.HCS 09:39
PROVIDERS: PCP Family Medicine; Visit Provider Internal Medicine Cardiovascular Disease
DX: R07.9 Chest pain, unspecified (principal); G45.9 Transient cerebral ischemic attack, unspecified; I10 Essential (primary) hypertension
CPT/HCPCS: 93010; 99214; G2211

== ENCOUNTER → 2024-12-06 09:38 | Outpatient (BNVA) | payer OTHER, SELFPAY | PROVIDERS: PCP Family Medicine; Visit Provider Internal Medicine Cardiovascular Disease | DX: R07.9 Chest pain, unspecified (principal); I10 Essential (primary) hypertension; Z86.73 Personal history of transient ischemic attack (TIA), and cerebral infarction without residual deficits | CPT/HCPCS: 93005; 99212 ==

== ENCOUNTER 2024-12-28 01:32 | Emergency (ER) | payer OTHER, SELFPAY ==
--- NOTE | 2024-12-28 | ECG_ITS ---
Test Reason : palpatations Blood Pressure : */* mmHG Vent. Rate : 109 BPM Atrial Rate : 109 BPM P-R Int : 182 ms QRS Dur : 92 ms QT Int : 342 ms P-R-T Axes : 59 4 46 degrees QTcB Int : 460 ms Sinus tachycardia Low voltage QRS Inferior infarct (cited on or before 03-Jul-2022) Cannot rule out Anterior infarct (cited on or before 14-Sep-2024) Abnormal ECG When compared with ECG of 14-Sep-2024 08:14, No significant changes seen Referred By: Generic ED Physician Electronically Signed By: LAWANDA KEEN
[2024-12-28 01:43] VITALS: BP 159/84; PULSE 116; RESP 16; TEMP 36.3; O2SAT 98; BMI 31.6
[2024-12-28 02:14] LABS: Basophils Percent Auto 0.4 % (0-2); Eosinophils Absolute Auto 0.1 X10*3/uL (0.0-0.4); Eosinophils Percent Auto 1.9 % (0-4); Hematocrit 39.1 % (37.0-47.0); Hemoglobin 14.1 g/dl (12.0-16.0); Imm Gran Abs Auto 0.01 X10*3/uL (0.00-0.03); Imm Gran Pct Auto 0.1 % (0.0-0.4); Lymphocytes Absolute Auto 2.2 X10*3/uL (1.2-4.9); Lymphocytes Percent Auto 31.5 % (20-40); MANUAL DIFF FLAG NO; Mean Corpuscular HGB Conc 36.1 g/dl (31.0-35.0); Mean Corpuscular Hemoglobin 31.8 pg (27.0-33.0); Mean Corpuscular Volume 88.1 fL (80.0-98.0); Mean Platelet Volume 9.5 fL (9.4-12.3); Monocytes Absolute Auto 0.6 X10*3/uL (0.1-1.2); Monocytes Percent Auto 8.1 % (2-11); Platelet Count 232 X10*3/uL (160-400); Red Blood Count 4.44 X10*6/uL (4.20-5.50); Red Cell Distribution Width 12.7 % (11.0-16.0); White Blood Count 6.9 X10*3/uL (4.8-10.8)
[2024-12-28 02:15] VITALS: BP 155/82; PULSE 80; RESP 12; TEMP 36.8; O2SAT 99
--- OUTSIDE RECORDS SUMMARY | 2024-12-28 02:16 | XMS_ITS | Encounter Summary ---
Author Organization [facility] Address 75 [facility] 7t [place] [address] Care Team Providers Care Rn Disease Management Name Role Phone Xuan Mckeon MD Primary Care Provider [phone] Yariel Schmid PharmD Unavailable [phone] Reason for Referral * Consultation (Routine) - Authorized Specialty Diagnoses / Procedures Referred By Contac t Referred To Contact Pharmacy Diagnoses Primary hypertension Type 2 diabetes mellitus without complication, without long-term current use of insulin (CMS/HCC) Xuan Mckeon MD [address] [place] [address] Phone: tel: fax: Referral ID Status Reason Start Date Expiration Date Visits Requested Visits Authorized [id number] Authorized Consult and Treat 07/18/2024 07/18/2025 6 6 Encounter Details Date Type Department Care Team (Late st Contact Info) Description 07/18/2024 Orders Only [facility] [address] [place] [address] [phone] Xuan Mckeon MD [address] [place], [place] [phone] Primary hypertension (Primary Dx); Type 2 diabetes [...] 01/11/2025 10:15 AM EDT Office Visit [facility] [address] [place] [phone] Xuan Mckeon MD [address] [place] [address] 02/02/2025 11:30 AM EDT Medication Management [facility] [address] [place] [address] [phone] Yariel Schmid, PharmD 230 [place] [address] Scheduled Referrals Name Type Priority Associated Diagnoses Orde r Schedule Referral to Pharmacy CDTM Outpatient Referral Routine Primary hypertension Type 2 diabetes mellitus without complication, without long-term current use of insulin ([facility]) Ordered: 07/18/2024 documented as of this encounter Goals Goal Patient Goal Type Associated Problems Recent Progress Patient-Stated? Author Blood Pressure < 140/90 Blood Pressure 156/90( 025 11:57 AM EST) No Yariel Schmid, Leelee documented as of this encounter Visit Diagnoses Diagnosis Primary hypertension- Primary Unspecified essential hypertension Type 2 diabetes mellitus without complication, without long-term current use of insulin ([facility]) documented in this encounter Additional Health Concerns Assessment Noted Time PHQ-9 Depression Total Score: 11 024 10:30 AM EDT documented as of this encounter Care Teams Rn Disease Management Relationship Specialty Start Date End Date Xuan Mckeon MD 230 [place] [address] PCP - General Family Medicine 09/20/20 Yairel Schmid, CristóbalD [address] [place] [phone] Pharmacist Internal Medicine 11/23/22 documented as of this encounter
--- OUTSIDE RECORDS SUMMARY | 2024-12-28 02:16 | XMS_ITS | Encounter Summary ---
Author Organization [employer] Address [address] [facility] [address] 7t [place] [address] Care Team Providers Care Structural Test Engineer Name Role Phone Xuan Mckeon MD Primary Care Provider [phone] Yariel Schmid PharmD Unavailable [phone] Reason for Visit * Reason Comments Med Refill Encounter Details Date Type Department Care Team ([facility] st Contact Info) Description 09/08/2023 Refill [facility]INE 230 [place], [place] [phone] Xuan Mckeon MD 230 [place], [place] [phone] Other specified anxiety disorders Social History Tobacco [...] Description 01/11/2025 10:15 AM EDT Office Visit [facility] MEDICINE [address] [place] [address] 27965 Xuan Mckeon MD [address] [place] [address] 02/02/2025 11:30 AM EDT Medication Management [facility] [address] [place] [address] Yariel Schmid PharmD [address] [place] [phone] documented as of this encounter Goals Goal [...] documented as of this encounter Care Teams Structural Test Engineer Relationship Specialty Start Date End Date Xuan Mckeon MD [address] [place] [phone] PCP - General Family Medicine 09/20/20 Yariel Schmid PharmD [address] [place] [address] Pharmacist Internal Medicine 11/23/22 documented as of this encounter
--- OUTSIDE RECORDS SUMMARY | 2024-12-28 02:16 | XMS_ITS | Encounter Summary ---
Author Organization [employer] Address [address] [facility] [address] 7[address] [place] [address] Care Team Providers Care Ice Cream Truck Driver Name Role Phone Xuan Mckeon MD Primary Care Provider [phone] Yariel Schmid PharmD Unavailable [phone] Reason for Visit * Reason Onset Date Comments Appointment Request 08/23/2024 Encounter Details Date Type Department Care Team ([facility] st Contact Info) Description 08/23/2024 Telephone [facility] MED[facility]INE 230 [place] [address] Xuan Mckeon MD [address] [place] [address] Appointment Request Social History Tobacco Use Types [...] today's CDTM visit. Please contact pt at [phone]. (Beninese Speaker) documented in this encounter Plan of Treatment Upcoming Encounters Date Type Department Care Team ([facility] st Contact Info) Description 01/11/2025 10:15 AM EDT Office Visit [facility] MED[facility] [address] [place] [phone] Xuan Mckeon MD [address] [place] [address] 02/02/2025 11:30 AM EDT Medication Management [facility] [address] [place] [phone] Yariel Schmid, PharmD [address] [place] [phone] documented as of this encounter Goals Goal [...] documented as of this encounter Care Teams Ice Cream Truck Driver Relationship Specialty Start Date End Date Xuan Mckeon MD [address] [place] [address] PCP - General Family Medicine 09/20/20 Yariel Schmid, PharmD [address] [place] [address] Pharmacist Internal Medicine 11/23/22 documented as of this encounter
--- OUTSIDE RECORDS SUMMARY | 2024-12-28 02:16 | XMS_ITS | Encounter Summary ---
Author Organization [employer] Address 75 [facility] 7t [place] [address] Care Team Providers Care Medical Collections Name Role Phone Xaun Mckeon MD Primary Care Provider [phone] Yariel Schmid PharmD Unavailable Reason for Referral * Consultation (Routine) - Closed Specialty Diagnoses / Procedures Referred By Contac t Referred To Contact Family Medicine Diagnoses Dermatitis Xuan Mckeon MD [address] [place] [address] Phone: tel: fax: Referral ID Status Reason Start Date Expiration Date V isits Requested Visits Authorized [id number] Closed Specialty Services Required 12/24/2023 12/23/2024 1 1 Encounter Details Date Type Department Care Team (Late st Contact Info) Description 12/24/2023 Orders Only [facility] MED[facility] 230 [place], [place] [phone] Xuan Mckeon MD [address] [place], [place] [phone] Dermatitis (Primary Dx) Social History Tobacco Use [...] EDT Office Visit [facility] MED[facility]INE [address] [place] [address] Xuan Mckeon MD [address] [place] [address] 02/02/2025 11:30 AM EDT Medication Management [facility] [address] [place] [place] [address] Yariel Schmid, CristóbalD [address] [place] [address] Scheduled Referrals Name Type Priority Associated Diagnoses Orde r Schedule Referral to [facility] Derm Skin Adult Outpatient Referral Routine Dermatitis [...] documented as of this encounter Care Teams Medical Collections Relationship Specialty Start Date End Date Xuan Mckeon MD [address] [place] [address] PCP - General Family Medicine 09/20/20 Yariel Schmid, PharmD [address] [place] [address] Pharmacist Internal Medicine 11/23/22 documented as of this encounter
--- OUTSIDE RECORDS SUMMARY | 2024-12-28 02:16 | XMS_ITS | Clinical Summary ---
Author Organization [facility] Address [id number] [place] [phone] Care Team Providers Care Sole Scraper Name Role Phone Unavailable Primary Care Provider [...] age to complete this topic Meningococcal B Vaccine Aged Out No l onger eligible based on patient's age to complete this topic RSV Immunization Patients Under 20 months Aged Out No longer eligible based on patient's age to complete this topic Varicella Vaccines Aged Out No longer eligible based on patient's age to complete this topic
--- OUTSIDE RECORDS SUMMARY | 2024-12-28 02:16 | XMS_ITS | Clinical Summary ---
Author Organization [employer] Address [address] [facility] 7t [place] [address] Care Team Providers Care Charge Aide Name Role Phone Xuan Mckeon MD Primary Care Provider [phone] Yariel Schmid PharmD Unavailable [phone] Allergies Active Allergy Reactions Criticality Noted Date [...] complication, without long-term current use of insulin ([facility]) USE TWICE DAILY 100 each 11 [...] complication, without long-term current use of insulin ([facility]) TEST BLOOD SUGAR TWICE DAILY 100 [...] ITCHING 30 capsule 1 11/03/19 25 Active losartan (Cozaar) 100 MG tablet TAKE 1 TABLET BY MOUTH EVERY MORNING 90 tablet 3 11/24/19 25 Active cyclobenzaprine (Flexeril) 10 MG tabletIndication s:Fibromyalgia TAKE 1 TABLET BY MOUTH ONE OR TWO TIMES DAILY NEEDED FOR MUSCLE SPASMS 30 tablet 1 12/21/19 25 Active cyclobenzaprine (Flexeril) 10 MG tabletIndication s:Fibromyalgia TAKE 1 TABLET BY MOUTH ONE OR TWO TIMES DAILY NEEDED FOR MUSCLE SPASMS 30 tablet 1 11/16/19 25 025 Discontinued Active Problems Problem Noted [...] has already been seen and treated by extension specialist. She states she could not complete [...] Plan (12/17/2022 11:27 AM EDT): Seen by Flight Deck Officer, Dr. Karimi, on 11/26/22. Reported exertional Cheat [...] -BP not at goal today -Co-managed with pharmacy manager and PharmD. -pt advised to continue checking BP at home -pharmacy manager: Dr. Karimi, last visit in 11/26/22; exertional [...] -BP not at goal today -Co-managed with pharmacy manager and PharmD. -pt advised to continue checking BP at home -pharmacy manager: Dr. Karimi, last visit in 11/26/22; exertional [...] -BP not at goal today -Co-managed with pharmacy manager and PharmD. -pt advised to continue checking BP at home -pharmacy manager: Dr. Karimi, last visit in 11/26/22; exertional [...] < 130/80 per ACC/AHA - co-managed with pharmacy manager and PharmD. -pt advised to continue checking BP at home -pharmacy manager: Dr. Karimi, last visit in 11/26/22; exertional [...] < 130/80 per ACC/AHA - co-managed with pharmacy manager and PharmD. -pt advised to continue checking BP at home -pharmacy manager: Dr. Karimi, last visit in 11/26/22; exertional [...] advised to continue checking BP at home -pharmacy manager: Dr. Karimi, last visit in 11/26/22; exertional [...] advised to continue checking BP at home -pharmacy manager: Dr. Karimi, last visit in 07/06/22; concerns [...] on 07/03/22 - Started on Plavix by pharmacy manager; ASA was discontinued due to GI bleed - Continue statin, clopidogrel, and losartan - Continue working on lifestyle modification / risk factor management Assessment & Plan (11/30/2023 4:38 AM EDT): - seen in ED on 07/03/22 - Started on Plavix by pharmacy manager; ASA was discontinued due to GI bleed - Continue statin, clopidogrel, and losartan - Continue working on lifestyle modification / risk factor management Assessment & Plan (12/17/2022 11:23 AM EDT): - seen in ED on 07/03/22 - Started on Plavix by pharmacy manager; ASA was discontinued due to GI bleed - Continue statin, clopidogrel, and losartan - Continue working on lifestyle modification / risk factor management Assessment & Plan (10/04/2022 5:51 AM EST): - seen in ED on 07/03/22 - Started on Plavix by pharmacy manager; ASA was discontinued due to GI bleed [...] describes 3 episodes, last on treated at [facility] on 04/2012 Assessment & Plan [...] Encounters Date Type Department Care Team Description 12/20/2024 Refill [facility] [address] [facility] [place] [address] Xuan Mckeon MD Fibromyalgia 12/13/2024 Telephone [facility] MEDICINE [address] [facility] [address] Xuan Mckeon MD Prior Authorization ([facility]: cyclobenzaprine (Flexeril) 10 MG tablet) 12/13/2024 Telephone [facility] MED[facility] [address] [facility] [place] [address] Xuan Mckeon MD Prior Authorization ([facility] Request: hydrOXYzine Pamoate 25MG capsules) 12/05/2024 1:30 PM EDT Office Visit [facility] ADULT DENTAL [address] [place] [address] Rodrigo Perez DDS 12/05/2024 Telephone [facility] MEDICINE [address] [place] [address] Xuan Mckeon MD medical clearance for dental question 11/23/2024 Refill [facility] [address] [facility] [place] [address] Xuan Mckeon MD 11/14/2024 Refill [facility] MEDICINE 230 [facility] [address] Xuan Mckeon MD Fibromyalgia 11/09/2024 Telephone [facility] MEDICINE [address] [facility] [address] Nydia Bartlett NILDA Results 11/08/2024 Orders Only GENERIC EXTERNAL DATA DEPARTMENT Provider, Generic External Data 11/02/2024 Refill [facility] MEDICINE [address] [place] [address] Xuan Mckeon MD Urticaria 11/01/[address] [address] Meliza Cleveland RN Paperwork/Forms 10/31/2024 1:00 PM EST Office Visit [facility] ADULT DENTAL [address] [place] [address] Rodrigo Perez, SUNIL Cerebrovascular accident (CVA), unspecified mechanism (CMS/HCC) (Primary Dx) 10/24/2024 Refill [facility] MEDICINE [address] [place] [address] Xuan Mckeon MD Dyslipidemia; Vitamin deficiency 10/18/2024 Refill [facility] MEDICINE [address] [place] [address] Xuan Mckeon MD Fibromyalgia 10/10/2024 11:30 AM EST Office Visit [facility] MEDICINE [address] [place] [address] Xuan Mckeon MD Primary hypertension (Primary Dx); Type 2 diabetes mellitus without complication, without long-term current use of insulin (CMS/HCC); Dietary counseling; Exercise counseling; Class 1 obesity due to excess calories with serious comorbidity and body mass index (BMI) of 31.0 to 31.9 in adult; Hypokalemia; Anxiety; Dyslipidemia; Allergic reaction, subsequent encounter; History of diverticulitis 10/10/2024 Travel 10/05/2024 Telephone [facility] MEDICINE [address] [place] [address] [phone] Carla Judge MA chart prep from Last 3 Months Immunizations Name Administration [...] Description 01/11/2025 10:15 AM EDT Office Visit [facility] MEDICINE [address] [place] [address] Xuan Mckeon MD 230 [place] [address] 02/02/2025 11:30 AM EDT Medication Management [address] [address] Yariel Schmid, PharmD [address] [place] [address] Health Maintenance Due Date Last Done Comments [...] ( season) 2024 07/23/2021, 12/18/2020 Depression Monitoring 11/27/2024 05/30/2024, 024 FOBT 01/11/2025 01/12/2024 Eye Exam 02/23/2025 02/23/2023 Diabetes: Hemoglobin A1C 04/09/2025 025, 09/18/2024, 04/26/2024, Additional history exists Depression Screening 05/30/2025 05/30/2024, 05/30/20 Diabetes: Foot Exam 05/30/2025 05/30/2024, 05/30/2024, 05/30/2024, Additional history exists SDOH Screening 05/30/2025 05/30/2024 Alcohol/Substance Use Screening 09/18/2025 09/18/2024 Tobacco Screening 10/10/2025 10/10/2024 Diabetes: Urine Protein Screening 11/08/2025 11/08/2024, 06/08/2024, 06/16/2023, Additional history exists Lipid Panel 11/08/2025 11/08/2024, 1011/2023, 06/16/2023, Additional history exists Mammogram 2026 2024, [...] complication, without long-term current use of insulin ([facility]) LIPID PANEL WITH REFLEX TO DIRECT LDL Routine 11/08/2024 9:12 AM EST Type 2 diabetes mellitus without complication, without long-term current use of insulin ([facility]) MAGNESIUM Routine 11/08/2024 9:12 AM EST Hypokalemia [...] complication, without long-term current use of insulin ([facility]) POCT GLUCOSE Routine 10/10/2024 11:46 [...] 9:12 AM EST) Triglycerides 229(H) <150 mg/dL [facility] Comment:Desirable Triglyceri de: less than 150 mg/dLBorderline High Triglyceride 150-199 mg/dLHigh Triglyceride: 200-499 mg/dLVery High Triglyceride: greater than or equal to 5OO mg/dL Cholesterol 166 <200 mg/dL [facility] Comment:Desirable Cholestero l: less than 200 mg/dLBorderline High Cholesterol: 200-239 mg/dLHigh Cholesterol: greater than 239 mg/dL LDL Cholesterol Calculated 83 <100 mg/dL [facility] Comment:Desirable LDL: less than 100 mg/dLNear Optimal/Above Optimal LDL: 110- 129 mg/dLBorderline High LDL: 130-159 mg/dLHigh LDL: 160-189 mg/dLVery High LDL: greater than or equal to 190 mg/dL HDL Cholesterol 38(L) >40 mg/dL [facility] Comment:Desirable HDL: great er than 40 mg/dL Note: This HDL assay may give artificially low results in patients with liver disease. Blood 11/08/2024 9:12 AM EST 11/08/2024 11:25 AM EST us Xuan Mckeon MD LAB BLOOD ORDERABLES Final Resul t Performing Organization Address [facility] de Phone Number [facility] [address] [place] [phone] * Albumin, Random Urine W/Creatinine (11/08/2024 9:12 AM EST) Creatinine, Urine 161.01 mg/dL [facility] Microalbumin Urine 6.0 mg/L [facility] Microalbum Creatinine Ratio Ur 3.7 <30 ug/mg cr [facility] Comment:Albumin/Creatinine R atio Reference Ranges: Normal: < 30 ug/mg creatinine Microalbuminuria: 30 - 300 ug/mg creatinineClinical Albuminuria: > 300 ug/mg creatinine Urine 11/08/2024 9:12 AM EST 11/08/2024 11:25 AM EST us Xuan Mckeon MD LAB URINE ORDERABLES Final Resul t Performing Organization Address [facility] Co de Phone Number [facility] [address] [place] [phone] * (ABNORMAL) Urinalysis Complete (11/08/2024 9:12 AM EST) Color Urine Yellow [facility] Appearance Urine Clear [facility] PH 6.0 5.0 - 9.0 [facility] Glucose Urine UA Negative Negative mg/dL [facility] Urine Blood Negative Negative [facility] Specific [place] - Urine 1.020 1.005 - 1.025 [facility] Urine Protein Negative Neg-Trace mg/dL [facility] Urine Ketones Negative Negative mg/dL [facility] Nitrite Urine Negative Negative [facility] Leukocyte Esterase Urine Trace(A) Negative [facility] RBC Urine 0-2 0 - 2 /HPF [facility] Urine WBC 11-20(A) 0 - 5 /HPF [facility] Urine Squamous Epithelial Cell 0-2 0 - 2 /HPF [facility] Urine Bacteria 3+ None Seen [facility] Hyaline Casts, Urine 0-2 0 - 2 /LPF [facility] 11/08/2024 9:12 AM EST 11/08/2024 11:25 AM EST us Generic External Data Provider LAB URINE ORDERAB LES Final Result Performing Organization Address [facility]/ZIP Co de Phone Number [facility] [address] [place] [phone] * Magnesium (11/08/2024 9:12 AM EST) Pathologist [facility] Magnesium 1.8 1.6 - 2.6 mg/dL [facility] Blood Venous blood specimen / Unknown 11/08/2024 9:12 AM EST 11/08/2024 11:25 AM EST us Xuan Mckeon MD LAB BLOOD ORDERABLES Final Resul t Performing Organization Address [facility] Co de Phone Number [facility] [address] [place] [phone] * (ABNORMAL) Basic Metabolic Panel (11/08/2024 9:12 AM EST) Only the most recent of2 resultswithin the time period is included. Sodium 139 135 - 145 mmol/L [facility] Potassium 3.8 3.3 - 5.1 mmol/L [facility] Chloride 103 96 - 108 mmol/L [facility] Carbon Dioxide 31(H) 22 - 29 mmol/L [facility] Anion Gap 9(L) 12 - 20 [facility] Urea Nitrogen (BUN) 12 9 - 16 mg/dL [facility] Creatinine, Serum 0.73 0.5 - 1.4 mg/dL [facility] Estimated Glomerular Filt Rate >60 [facility] Comment:Chronic Kidney Disea se: Estimated GFR < 60 mL/min/1.55n3Afgngt Kidney Disease: Estimated GFR < 15 mL/min/1.73m2 Glucose 112 60 - 115 mg/dL [facility] Calcium 9.3 8.4 - 10.2 mg/dL [facility] 11/08/2024 9:12 AM EST 11/08/2024 11:25 AM EST Generic External Data Provider LAB BLOOD ORDERAB LES Final Result [facility] [address] [place] [phone] * (ABNORMAL) POCT glycosylated hemoglobin (Hgb A1c) [...] TEST ENTER/EDIT OR DERABLES Final Result * BI Mammogram Screening Tomosynthesis Bilateral (2024 9:15 AM EDT) Anatomical Region Laterality Modality Breast Bilateral Mammography 2024 9:15 AM EDT Narrative 06/15/2024 7:13 PM EDT ? [facility] ? [address] ?[place] [address] ? Mammography Report ? Signed ? Patient: Gaby Owen,Che ?MR ?? #: [id number] ? : 1950 ?Acct:[id number] ? Age/Sex: 74 / F ?ADM Date: 06/06/24 ? Loc: HO.MAMMO ? Attending Dr: Xuan Mckeon MD ? Ordering Physician: Xuan Mckeon MD ?Results: 1Negative ? Date of Service: 06/06/24 ?Follow Up: 1 Year From Orig ?? inal Mammogram ? Procedure(s): MM tomosynthesis screening BI ?? Accession Number(s): [id number] ? cc: Xuan Mckeon MD ? EXAMINATION: [...] by Urvashi Blanton, DO in OV> ? /06/29 1910 ? DD/ ? TD/TT: 06/06/24919 ? Core Inserter: ? Procedure Note Donarmidater, Image - 06/15/2024 [facility] [address] [place], [place] [address] Mammography Report Signed Patient: Jamal PersoncaMR #: [id number] : 1950cct:[id number] Age/Sex: 74 / FADM Date: 06/06/24 Loc: [facility] Attending Dr: Xuan Mckeon MD Ordering Physician: Xuan Mckeon MDResults: 1Negative Date of Service: 06/06/24Follow Up: 1 Year From Orig inal Mammogram Procedure(s): MM tomosynthesis screening BI Accession Number(s): [id number] cc: Xuan Mckeon MD EXAMINATION: MM SCREENING [...] in OV> 06/15/241909 DD/ 4 TD/TT: 06/06/24919 Core Inserter: Xuan Mckeon MD IM BI PROCEDURES Edited Result - Final * FIT DNA/Cologuard Cancer Screening (01/12/2024) Cologuard Cancer Screen Negative Stool Historical Provider HEALTH MAINTENANCE Final Result * Hm Diabetes Eye Exam (02/23/2023) Pathologist [facility] Eye Exam Normal Normal, BIRADS 0 , BIRADS 1 , BIRADS 2, BIRADS 3 , BIRADS 4+ 02/23/2023 Historical Provider HEALTH MAINTENANCE Final Result * HEPATITIS C AB W/REFL TO HCV RNA, QN, PCR (10/23/2020 8:55 AM EST) HEPATITIS C ANTIBODY NON-REACT [facility] NON-REACT [facility] INDEX 0.01 <1.00 [facility] Comment: ?? HCV antibody was non-reactive. There is no laboratory ?? evidence of HCV infection. ?? In most cases, no further action is required. However, if recent HCV exposure is suspected, a test for HCV RNA (test code 41462) is suggested. ?? For additional information please refer to http://education.Fixetude/faq/ZMT93j4 (This link is being provided for informational/ educational purposes only.) ?? 10/23/2020 8:55 AM EST us Xuan Mckeon MD HISTORICAL/NON ORDERABLE LABS Fi nal Result [facility] [address] [place] [address], from Last 3 Months or Most Recently Relevant to Health Maintenance Insurance [facility] Member Subscriber Plan / Payer (Ef fective 2018-Present) Name:Che Person Relation to Subscriber:Self Name:Che Person Payer ID:Not on file Group ID:[id number] Type:Not on file Address: [place] [id number] DENTAL - [facility] Care Teams Charge Aide Relationship Specialty Start Date End Date Xuan Mckeon MD [address] [place] [phone] PCP - General Family Medicine 09/20/20 Yariel Schmid, PharmD [address] [place] [phone] Pharmacist Internal Medicine 11/23/22
--- OUTSIDE RECORDS SUMMARY | 2024-12-28 02:16 | XMS_ITS | Encounter Summary ---
Author Organization [employer] Address [address] 7[address] [place] [address] Care Team Providers Care Environmental Field Team Member Name Role Phone Xuan Mckeon MD Primary Care Provider [phone] Yariel Schmid PharmD Unavailable [phone] Encounter Details Date Type Department Care Team (Late st Contact Info) Description 10/22/2023 Orders Only [facility] MEDICINE [address] [place], [place] [phone] Xuan Mckeon MD 230 [place], [place] [phone] Social History Tobacco Use Types Packs/Day Years [...] Description 01/11/2025 10:15 AM EDT Office Visit [facility] MEDICINE [address] [place] [phone] Xuan Mckeon MD [address] [place] [phone] 02/02/2025 11:30 AM EDT Medication Management [address] [address] Yariel Schmid, PharmD [address] [place] [phone] documented as of this encounter Goals Goal [...] as of this encounter Care Teams Environmental Field Team Member Relationship Specialty Start Date End Date Xuan Mckeon MD [address] [place] [address] [phone] PCP - General Family Medicine 09/20/20 Yariel Schmid PharmD [address] [place] [address] [phone] Pharmacist Internal Medicine 11/23/22 documented as of this encounter
--- OUTSIDE RECORDS SUMMARY | 2024-12-28 02:16 | XMS_ITS | Encounter Summary ---
Author Organization [employer] Address [address] 7[address] [place] [address] Care Team Providers Care Client Insights Consultant Name Role Phone Xuan Mckeon MD Primary Care Provider [phone] Yariel Schmid PharmD Unavailable [phone] Reason for Visit * Reason Comments Med Refill Encounter Details Date Type Department Care Team ([facility] st Contact Info) Description 10/18/2024 Refill [facility] MEDICINE 230 [place], [place] [phone] Xuan Mckeon MD 230 [place], [place] [phone] Fibromyalgia Social History Tobacco Use Types Packs/Day [...] Description 01/11/2025 10:15 AM EDT Office Visit [address] [address] Xuan Mckeon MD [address] [place] [phone] 02/02/2025 11:30 AM EDT Medication Management [address] [address] Yariel Schmid PharmD [address] [place] [phone] documented as of this encounter Goals Goal [...] documented as of this encounter Care Teams Client Insights Consultant Relationship Specialty Start Date End Date Xuan Mckeon MD [address] [place] [phone] PCP - General Family Medicine 09/20/20 Yariel Schmid, Leelee [address] [place] [phone] Pharmacist Internal Medicine 11/23/22 documented as of this encounter
--- OUTSIDE RECORDS SUMMARY | 2024-12-28 02:16 | XMS_ITS | Encounter Summary ---
Author Organization [employer] Address [address] [place] [address] Care Team Providers Care Service Inspector Name Role Phone Xuan Mckeon MD Primary Care Provider [phone] Yariel Schmid PharmD Unavailable [phone] Encounter Details Date Type Department Care Team (Late st Contact Info) Description 12/06/[address] [facility] MEDICINE 230 [place], [place] [phone] Xuan Mckeon MD 230 [place], [place] [phone] Social History Tobacco Use Types Packs/Day Years [...] Description 01/11/2025 10:15 AM EDT Office [address] [facility] MED[facility] [address] [place] [phone] Xuan Mckeon MD [address] [place] [phone] 02/02/2025 11:30 AM EDT Medication Management [address] [address] Yariel Schmid, PharmD [address] [place] [phone] documented as of this encounter Goals Goal [...] documented as of this encounter Care Teams Service Inspector Relationship Specialty Start Date End Date Xuan Mckeon MD [address] [place] [address] [phone] PCP - General Family Medicine 09/20/20 Yariel Schmid PharmD [address] [place] [address] [phone] Pharmacist Internal Medicine 11/23/22 documented as of this encounter
--- OUTSIDE RECORDS SUMMARY | 2024-12-28 02:16 | XMS_ITS | Encounter Summary ---
Author Organization [employer] [facility] Address [address] [facility] 7t [place] [address] Care Team Providers Care [employer] Name Role Phone Xuan Mckeon MD Primary Care Provider [phone] Yariel Schmid PharmD Unavailable [phone] Reason for Visit * Reason Comments Med Refill Encounter Details Date Type Department Care Team (Late st Contact Info) Description 04/07/2023 Refill [facility] MEDICINE [address] [place] [address] [phone] Xuan Mckeon MD [address] [place] [address] [phone] Vitamin B12 deficiency Social History Tobacco Use [...] 10:15 AM EDT Office Visit [facility] [address] [place] [address] [phone] Xuan Mckeon MD [address] [place] [address] [phone] 02/02/2025 11:30 AM EDT Medication Management [facility] [address] [place] [address] Yariel Schmid, PharmD 230 [place] [address] documented as of this encounter Goals Goal [...] documented as of this encounter Care Teams [employer] Relationship Specialty Start Date End Date Xuan Mckeon MD 230 [place] [address] PCP - General Family Medicine 09/20/20 Yariel Schmid, PharmD [address] [place] [phone] Pharmacist Internal Medicine 11/23/22 documented as of this encounter
--- OUTSIDE RECORDS SUMMARY | 2024-12-28 02:16 | XMS_ITS | Encounter Summary ---
Author Organization [employer] Address [address] [facility] 7t [place] [address] Care Team Providers Care Marker Delivery Name Role Phone Xuan Mckeon MD Primary Care Provider [phone] Yariel Schmid PharmD Unavailable [phone] Reason for Visit * Reason Comments Med Refill Encounter Details Date Type Department Care Team ([facility] Contact Info) Description 10/06/2022 Refill [facility] MED & PEDS [address] [place], [place] [phone] Ofelia Akhtar ANP [address] [place] [address] Other specified anxiety disorders Social History Tobacco [...] Upcoming Encounters Date Type Department Care Team ([facility] Contact Info) Description 01/11/2025 10:15 AM EDT Office Visit [facility] MEDICINE 230 [place], [place] [phone] Xuan Mckeon MD [address] [place] [address] 02/02/2025 11:30 AM EDT Medication Management [facility] MEDICINE 230 [place], [place] [phone] Yariel Schmid, PharmD [address] [place] [address] documented as of this encounter Visit Diagnoses Diagnosis Other specified anxiety disorders documented in this encounter Care Teams Marker Delivery Relationship Specialty Start Date End Date Xuan Mckeon MD [address] [place] [address] [phone] PCP - General Family Medicine 09/20/20 Yariel Schmid, PharmD [address] [place] [address] [phone] Pharmacist Internal Medicine 11/23/22 documented as of this encounter
--- OUTSIDE RECORDS SUMMARY | 2024-12-28 02:16 | XMS_ITS | Encounter Summary ---
Author Organization [employer] Address [address] 7[address] [place] [address] Care Team Providers Care Automatic Print Developer Name Role Phone Xuan Mckeon MD Primary Care Provider [phone] Yariel Schmid PharmD Unavailable [phone] Reason for Visit * Reason Comments Med Refill Encounter Details Date Type Department Care Team ([facility] st Contact Info) Description 10/05/2023 Refill [facility] [address] [place], [place] [phone] Xuan Mckeon MD [address] [place], [place] [phone] Vitamin B12 deficiency Social History Tobacco Use [...] Description 01/11/2025 10:15 AM EDT Office Visit [facility] [address] [place] [phone] Xuan Mckeon MD [address] [place] [address] 02/02/2025 11:30 AM EDT Medication Management [facility] [address] [place] [phone] Yariel Schmid PharmD [address] [place] [phone] documented as of this encounter Goals Goal [...] documented as of this encounter Care Teams Automatic Print Developer Relationship Specialty Start Date End Date Xuan Mckeon MD [address] [place] [phone] PCP - General Family Medicine 09/20/20 Yariel Schmid, PharmD [address] [place] [phone] Pharmacist Internal Medicine 11/23/22 documented as of this encounter
--- OUTSIDE RECORDS SUMMARY | 2024-12-28 02:16 | XMS_ITS | Encounter Summary ---
Author Organization [employer] Address [address] [facility] 7t [place] [address] Care Team Providers Care White [employer]wall T[employer] Buffer Name Role Phone Xuan Mckeon MD Primary Care Provider [phone] Yariel Schmid PharmD Unavailable [phone] Reason for Visit * Reason Comments Med Refill Encounter Details Date Type Department Care Team (Late Contact Info) Description 03/18/2023 Refill [facility] [address] [place], [place] [phone] Xuan Mckeon MD [address] [place], [place] [phone] Other specified anxiety disorders Social History Tobacco [...] Description 01/11/2025 10:15 AM EDT Office Visit [facility] [address] [place], [place] [phone] Xuan Mckeon MD [address] [place], [place] [phone] 02/02/2025 11:30 AM EDT Medication Management [facility] [address] [place] [address] Yariel Schmid, PharmD [address] [place] [address] documented as of this encounter Goals Goal [...] documented as of this encounter Care Teams [employer] Buffer Relationship Specialty Start Date End Date Xuan Mckeon MD [address] [place] [address] PCP - General Family Medicine 09/20/20 Yariel Schmid, PharmD [address] [place] [phone] Pharmacist Internal Medicine 11/23/22 documented as of this encounter
--- OUTSIDE RECORDS SUMMARY | 2024-12-28 02:16 | XMS_ITS | Encounter Summary ---
Author Organization [employer] [facility] Address [address] [facility] 7t [place] [address] Care Team Providers Care Senior Rd Engineer Name Role Phone Xuan Mckeon MD Primary Care Provider [phone] Yariel Schmid PharmD Unavailable [phone] Encounter Details Date Type Department Care Team (Latest Contact Info) Description 01/23/2022 Abstract [facility] Dental, Provider, DDS Social History [...] Description 01/11/2025 10:15 AM EDT Office Visit [facility] [address] [place] [phone] Xuan Mckeon MD [address] [place] [address] 02/02/2025 11:30 AM EDT Medication Management [facility] [address] [place] [phone] Yariel Schmid, PharmD [address] [place] [address] documented as of this encounter Visit Diagnoses Not on filedocumented in this encounter Care Teams Senior Rd Engineer Relationship Specialty Start Date End Date Xuan Mckeon MD [address] [place] [phone] PCP - General Family Medicine 09/20/20 Yariel Schmid, CristóbalD [address] [place] [phone] Pharmacist Internal Medicine 11/23/22 documented as of this encounter
--- OUTSIDE RECORDS SUMMARY | 2024-12-28 02:16 | XMS_ITS | Encounter Summary ---
Author Organization [employer] Address [address] [facility] [address] 7[address] [place] [address] Care Team Providers Care Credit Advisor Name Role Phone Xuan Mckeon MD Primary Care Provider [phone] Yariel Schmid PharmD Unavailable [phone] Encounter Details Date Type Department Care Team (Late st Contact Info) Description 09/20/2024 Orders Only [facility] [address] [place], [place] [phone] Xuan Mckeon MD [address] [place], [place] [phone] Left lower quadrant abdominal pain (Primary Dx); [...] Office Visit [facility] [address] [place] [phone] Xuan Mckeon MD [address] [place] [address] 26[address] 02/02/2025 11:30 AM EDT Medication Management [facility] [address] [place] [phone] Yariel Schmid PharmD [address] [place] [address] [phone] documented as of this encounter Goals Goal [...] Sedimentation Rate 25(H) 0 - 20 MM/HR [facility] Comment:Patients with polycy themia and many hemoglobin abnormalitiesmay have depressed sed rates whereas patients with anemiamay have elevated sed rates. Blood Venous blood specimen / Unknown 09/21/2024 9:16 AM EST 09/21/2024 11:12 AM EST Xuan Mckeon MD LAB BLOOD ORDERABLES Final Resul t Performing Organization Address [facility]/ZIP Co de Phone Number [facility] [address] [place] [phone] * (ABNORMAL) C-reactive Protein (09/21/2024 9:16 AM EST) Pathologist [facility] C Reactive Protein 0.96(H) < or = 0.50 mg/dL [facility] Blood Venous blood specimen / Unknown 09/21/2024 9:16 AM EST 09/21/2024 11:12 AM EST Xuan Mckeon MD LAB BLOOD ORDERABLES Final Resul t [facility] [address] [place] [phone] * (ABNORMAL) CBC auto differential (09/21/2024 9:16 AM EST) White Blood Count 6.2 4.8 - 10.8 X10*3/uL [facility] Red Blood Count 3.99(L) 4.20 - 5.50 X10*6/uL [facility] Hemoglobin 12.4 12.0 - 16.0 g/dl [facility] Hematocrit 36.3(L) 37.0 - 47.0 % [facility] Mean Corpuscular Volume 91.0 80.0 - 98.0 fL [facility] Mean Corpuscular Hemoglobin 31.1 27.0 - 33.0 pg [facility] Mean Corpuscular HGB Conc 34.2 31.0 - 35.0 g/dl [facility] Red Cell Distribution Width 12.5 11.0 - 16.0 % [facility] Platelet Count 288 160 - 400 X10*3/uL [facility] Mean Platelet Volume 10.5 9.4 - 12.3 fL [facility] Neutrophils Percent Auto 70.5 45 - 73 % [facility] Imm Gran Pct Auto 0.3 0.0 - 0.4 % [facility] Lymphocytes Percent Auto 20.0 20 - 40 % [facility] Monocytes Percent Auto 7.1 2 - 11 % [facility] Eosinophils Percent Auto 1.6 0 - 4 % [facility] Basophils Percent Auto 0.5 0 - 2 % [facility] NRBC Pct Auto 0.0 0.0 - 0.2 /100WBC [facility] Neutrophils Absolute Auto 4.3 2.0 - 8.3 x10*3/uL [facility] Imm Gran Abs Auto 0.02 0.00 - 0.03 X10*3/uL [facility] Lymphocytes Absolute Auto 1.2 1.2 - 4.9 X10*3/uL [facility] Monocytes Absolute Auto 0.4 0.1 - 1.2 X10*3/uL [facility] Eosinophils Absolute Auto 0.1 0.0 - 0.4 X10*3/uL [facility] Basophils Absolute Auto 0.0 0.0 - 0.2 X10*3/uL [facility] NRBC Abs Auto 0.000 0.0 - 0.012 X10*3/uL [facility] Blood Venous blood specimen / Unknown 09/21/2024 9:16 AM EST 09/21/2024 11:12 AM EST Xuan Mckeon MD LAB BLOOD ORDERABLES Final Resul t [facility] [address] [place] [phone] documented in this encounter Visit Diagnoses Diagnosis Left lower quadrant abdominal pain- Primary Diverticulitis Diverticulitis of colon (without mention of hemorrhage) documented in this encounter Additional Health Concerns Assessment Noted Time PHQ-9 Depression Total Score: 11 024 10:30 AM EDT documented as of this encounter Care Teams Credit Advisor Relationship Specialty Start Date End Date Xuan Mckeon MD [address] [place] [address] PCP - General Family Medicine 09/20/20 Yariel Schmid, CristóbalD [address] [place] [phone] Pharmacist Internal Medicine 11/23/22 documented as of this encounter
--- OUTSIDE RECORDS SUMMARY | 2024-12-28 02:16 | XMS_ITS | Encounter Summary ---
Author Organization [employer] Address [address] [facility] 7t [place] [address] Care Team Providers Care Protein Chemist Name Role Phone Xuan Mckeon MD Primary Care Provider [phone] Yariel Schmid PharmD Unavailable [phone] Encounter Details Date Type Department Care Team (Late st Contact Info) Description 09/23/2022 Orders Only [facility] [address] [place] [address] Shannon Rich LPN Social History Tobacco Use [...] Description 01/11/2025 10:15 AM EDT Office Visit [facility] [address] [place] [address] [phone] Xuan Mckeon MD [address] [place] [address] [phone] 02/02/2025 11:30 AM EDT Medication Management [facility] [address] [place] [address] [phone] Yariel Schmid, PharmD [address] [place], [place] [phone] documented as of this encounter Visit Diagnoses Not on filedocumented in this encounter Care Teams Protein Chemist Relationship Specialty Start Date End Date Xuan Mckeon MD [address] [place], [place] [phone] PCP - General Family Medicine 09/20/20 Yariel Schmid, Leelee [address] [place] [phone] Pharmacist Internal Medicine 11/23/22 documented as of this encounter
--- OUTSIDE RECORDS SUMMARY | 2024-12-28 02:16 | XMS_ITS | Encounter Summary ---
Author Organization [employer] Address [address] 7[address] [place] [address] Care Team Providers Care Shredder Tender Name Role Phone Xuan Mckeon MD Primary Care Provider [phone] Yariel Schmid PharmD Unavailable [phone] Reason for Visit * Reason Comments Med Refill Encounter Details Date Type Department Care Team ([facility] st Contact Info) Description 03/06/2024 Refill [facility] [address] [place], [place] [phone] Ofelia Akhtar ANP [address] [place], [place] [phone] Other specified anxiety disorders Social History Tobacco [...] 10:15 AM EDT Office Visit [facility] [address] [place] [address] [phone] Xuan Mckeon MD [address] [place] [address] 02/02/2025 11:30 AM EDT Medication Management [facility] [address] [place] [address] [phone] Yariel Schmid PharmD [address] [place] [address] [phone] documented as of this encounter Goals Goal [...] documented as of this encounter Care Teams Shredder Tender Relationship Specialty Start Date End Date Xuan Mckeon MD [address] [place] [address] [phone] PCP - General Family Medicine 09/20/20 Yariel Schmid PharmD [address] [place] [address] [phone] Pharmacist Internal Medicine 11/23/22 documented as of this encounter
[2024-12-28 02:33] LABS: Troponin-I High Sensitivity 7.1 ng/L (<3.5-17.0)
[2024-12-28 02:35] LABS: Alanine Aminotransferase 16 U/L (0-31); Albumin Level 4.2 g/dL (3.5-5.0); Alkaline Phosphatase 47 U/L (39-117); Anion Gap 16 (12-20); Aspartate Amino Transferase 22 U/L (5-31); Bilirubin Total 0.4 mg/dL (0.0-1.0); Blood Urea Nitrogen 16 mg/dL (9-16); Calcium 9.4 mg/dL (8.4-10.2); Carbon Dioxide 25 mmol/L (22-29); Chloride 100 mmol/L (96-108); Creatinine Clr Calc Pharmacy 61.4; Estimated Glomerular Filt Rate > 60; Glucose Random 154 mg/dL (60-115); Potassium 3.5 mmol/L (3.3-5.1); Sodium 137 mmol/L (135-145); Total Protein 6.5 g/dL (6.5-8.0)
[2024-12-28 02:52] LABS: Influenza A PCR NEGATIVE (Negative); Influenza B PCR NEGATIVE (Negative); Resp Syncy Virus RNA Qual PCR NEGATIVE (Negative); SARS COV2 PCR INHOUSE NEGATIVE (Negative)
--- NOTE | 2024-12-28 03:09 | ED_ITS ---
HPI - General Adult General Chief complaint: Arrhythmia/Palpitations Stated complaint: Rash All Over Body Time Seen by Provider: 12/28/24 02:32 Source: patient, RN notes reviewed and old records reviewed Mode of arrival: ambulatory Limitations: no limitations History of Present Illness ED Provider: Luisito HPI narrative: 74-year-old female past medical history significant for diabetes, palpitations, hypertension, gastritis, presents for evaluation of multiple complaints. Patient reports that she woke up around 1:00 a.m. and she ?felt hot all over her my arms up into my face. ? She reports that she looked in the mirror and she had a red rash to her arms, face and back When she had looking in the mirror and saw the rash she reports that she started to feel palpitations and some shortness of breath She reports that she took Plavix, Benadryl, and Ativan and her symptoms resolved She did not have any chest pain takes Denied any slurred speech or weakness She has no symptoms Related Data Home Medications ?Medication ?Instructions ?Recorded ?Confirmed lorazepam 1 mg tablet 1 mg PO BID PRN anxiety 07/04/20 12/06/24 losartan 100 mg tablet 100 mg PO DAILY 07/04/20 12/06/24 metformin 500 mg tablet,extended 500 mg PO DAILY 07/04/20 12/06/24 release 24 hr atorvastatin 40 mg tablet 40 mg PO DAILY 07/06/22 12/06/24 cyanocobalamin (vitamin B-12) 500 500 mcg PO DAILY 07/06/22 12/06/24 mcg tablet chlorthalidone 25 mg tablet 25 mg PO DAILY 07/17/22 12/06/24 pantoprazole 40 mg tablet,delayed 40 mg PO DAILY 07/17/22 12/06/24 release (Protonix) hydroxyzine pamoate 25 mg capsule 25 mg PO DAILY PRN 07/25/24 12/06/24 metoprolol succinate 100 mg 100 mg PO DAILY 07/25/24 12/06/24 tablet,extended release 24 hr Previous Rx's ?Medication ?Instructions ?Recorded cyclobenzaprine 10 mg tablet 10 mg PO TID PRN pain #18 tabs 02/19/21 clopidogrel 75 mg tablet 75 mg PO DAILY #90 tabs 05/01/24 tramadol 50 mg tablet 50 mg PO Q6H PRN pain #20 tabs 10/09/24 ondansetron 4 mg disintegrating 4 mg PO Q6H PRN nausea and 09/14/24 tablet vomiting #10 tabs potassium chloride 10 mEq 20 meq (2 x 10 mEq) PO BID 7 days 09/14/24 capsule,extended release #28 caps Allergies Allergy/AdvReac Type Severity Reaction Status Date / Time hydrocodone [HYDROCODONE] Allergy Unknown UNKNOWN Verified 12/28/24 01:49 levofloxacin [LEVOFLOXACIN] Allergy Unknown Rash Verified 12/28/24 01:49 metronidazole [METRONIDAZOLE] Allergy Unknown UNK Verified 12/28/24 01:49 promethazine [PROMETHAZINE] Allergy Unknown Rash Verified 12/28/24 01:49 Codeine Allergy Unknown swelling/ Uncoded 12/28/24 01:49 itching/ hives dye contrast Allergy Unknown red skin Uncoded 12/28/24 01:49 Hydrocodone-Acetaminophen Allergy Unknown rash Uncoded 12/28/24 01:49 Review of Systems 2 Constitutional: Constitutional: Denies body ache(s), Denies chills, Denies fever(s) and Denies headache(s) Eyes: Eyes: Denies blurry vision ENT: Denies vertigo, Denies dizziness and Denies headache(s) Cardiovascular: Cardiovascular: Denies chest pain, Reports rapid heart rate, Reports palpitations and Reports dyspnea Respiratory: Respiratory: Denies cough and Reports dyspnea Gastrointestinal: Gastrointestinal: Denies abdominal pain, Denies nausea and Denies vomiting Musculoskeletal: Musculoskeletal: Denies back pain Integumentary/Breasts: Skin/Breast: Denies rash Neurologic: Denies vertigo, Denies dizziness and Denies headache(s) Psychiatric: Psychiatric: Reports anxiety Endocrine: Endocrine: Reports flushing and Reports palpitations PMFSH Past Medical History Medical History Diverticulitis Hypertension Surgical History H/O section Family History Family History Father No problems noted. Mother CVD (cardiovascular disease) Social History Social History Alcohol intake: never Patient Tobacco Use Status: Never used Tobacco Smoked in Last 30 Days: No Use of substances other than those prescribed or required for medical reasons: No Advance Directives: No Advance Directives Information Provided: Yes Do you have a plan to hurt others: No Plan Physical Exam ED Vital Signs: Vital Signs - 24 hr 12/28/24 01:43 12/28/24 02:15 12/28/24 03:15 Temperature 97.4 F 98.2 F 98.2 F Pulse Rate 116 H 80 80 Respiratory Rate 16 12 12 Blood Pressure 159/84 H 155/82 H 155/82 H Pulse Oximetry 98 99 99 Oxygen Delivery Method Room Air Room Air Room Air BMI result Body Mass Index 31.6 Const General: healthy appearing, comfortable, no acute distress, alert and awake Nutritional Appearance: well nourished Orientation/consciousness: patient oriented x3 HENMT Head: Yes normocephalic and Yes atraumatic Eyes Eyelids: Yes eyelids normal Conjunctivae: conjunctivae normal Sclerae: sclerae normal Corneas: corneas normal Pupils: Equal, round and reactive pupils present EOM: EOMs intact bilaterally Neck Neck: Yes full ROM Resp Effort & Inspection: normal respiratory effort, able to speak in complete sentences, no audible wheezes and not labored Auscultation: clear to auscultation bilaterally Cardio Rate: regular rate Rhythm: regular rhythm GI Inspection: No distended Palpation (GI): Soft to palpation, not firm, nontender, no guarding and not rigid Skin General skin exam: no rashes or lesions noted and elasticity normal Neuro General: patient oriented x3 Cranial nerves: Yes CN's II-XII intact bilaterally, Yes Equal, round and reactive pupils present and Yes Bilaterally intact EOM present Cognition (Neuro): normal cognition Extrem Other: Moving all extremities well without any obvious deformities Medical Decision Making Medical Decision Making MDM Narrative: 74-year-old female with a past medical history as above presents for evaluation of a flushing sensation, palpitations and a reported rash. On exam, she currently has no rash. It was unclear if this improved due to the Benadryl that she took pre-hospital. She never had any chest pain, she was her EKG was initially sinus tachycardia at [address] segment elevation HI. troponin within normal limits. Heart score of 3. Tachycardia has resolved, she would not hypoxic or tachypneic, less likely PE. She had a CT scan about 5 months ago that did not show any abnormality to the adrenal glands bilaterally, less likely pheochromocytoma. I feel that her symptoms are most consistent with anxiety as they improve he was Benadryl and Ativan. The patient will be discharged to follow up with her outpatient providers. She was encouraged to take a picture of any rash that this happens again in the future Differential Diagnosis Differential Diagnoses: The differential diagnosis associated with the presentation includes Anxiety Palpitations ACS Pheochromocytoma Arrhythmia SVT Admission/Observation Consideration of admission/observation: Escalation of care including admission/observation considered Lab Data MDM Lab Attestation statement: I reviewed the patient's lab results. Accepted the patient leukocytosis or anemia. Normal platelet count. No electrolyte abnormalities. Troponin Within normal limits. 12/28/24 02:06 12/28/24 02:06 Labs: Lab Results 12/28/24 Range/Units 02:06 WBC 6.9 (4.8-10.8) X10*3/uL RBC 4.44 (4.20-5.50) X10*6/uL Hgb 14.1 (12.0-16.0) g/dl Hct 39.1 (37.0-47.0) % MCV 88.1 (80.0-98.0) fL MCH 31.8 (27.0-33.0) pg MCHC 36.1 H (31.0-35.0) g/dl RDW 12.7 (11.0-16.0) % Plt Count 232 (160-400) X10*3/uL MPV 9.5 (9.4-12.3) fL Immature Gran % (Auto) 0.1 (0.0-0.4) % Neut % (Auto) 58.0 (45-73) % Lymph % (Auto) 31.5 (20-40) % [place] % (Auto) 8.1 (2-11) % Eos % (Auto) 1.9 (0-4) % Baso % (Auto) 0.4 (0-2) % Lymph # (Auto) 2.2 (1.2-4.9) X10*3/uL [place] # (Auto) 0.6 (0.1-1.2) X10*3/uL Eos # (Auto) 0.1 (0.0-0.4) X10*3/uL Baso # (Auto) 0.0 (0.0-0.2) X10*3/uL Abs Immat Gran (auto) 0.01 (0.00-0.03) X10*3/uL Absolute Neuts (auto) 4.0 (2.0-8.3) x10*3/uL Absolute Nucleated RBC 0.000 (0.0-0.012) X10*3/uL Nucleated RBC % (auto) 0.0 (0.0-0.2) /100WBC Sodium 137 (135-145) mmol/L Potassium 3.5 (3.3-5.1) mmol/L Chloride 100 (96-108) mmol/L Carbon Dioxide 25 (22-29) mmol/L Anion Gap 16 (12-20) BUN 16 (9-16) mg/dL Creatinine 0.76 (0.5-1.4) mg/dL Estim Creat Clear Calc 61.4 Estimated GFR > 60 Random Glucose 154 H (60-115) mg/dL Calcium 9.4 (8.4-10.2) mg/dL Total Bilirubin 0.4 (0.0-1.0) mg/dL AST 22 (5-31) U/L ALT 16 (0-31) U/L Alkaline Phosphatase 47 (39-117) U/L Troponin I High Sens 7.1 (<3.5-17.0) ng/L Total Protein 6.5 (6.5-8.0) g/dL Albumin 4.2 (3.5-5.0) g/dL Influenza Type A (PCR) NEGATIVE (Negative) Influenza Type B (PCR) NEGATIVE (Negative) RSV RNA Qual (PCR) NEGATIVE (Negative) SARS-CoV-2 RNA (RT-PCR) NEGATIVE (Negative) Independent Interpretation I performed an independent interpretation of an: EKG (Sinus tachycardia rate 109 beats per minute.) Tests considered The following testing was considered but not selected: Consider chest x-ray, but the patient's oxygen saturation is stable, lungs are clear to auscultation, she was not having any shortness of breath currently. Discharge Plan Discharge Clinical Impression: Anxiety, Palpitations Patient Disposition: Home, Self-Care Instructions: Heart Palpitations (ED), Anxiety (ED) Additional Instructions: Your workup in the ER today was reassuring. This includes your blood work, EKG and viral swabs. If you have a rash again, try to take a picture to show us what it looks like Follow-up with your primary doctor Return for new or worsening symptoms Prescriptions: No Action pantoprazole [Protonix] 40 mg tablet,delayed release (DR/EC) 40 mg PO DAILY chlorthalidone 25 mg tablet 25 mg PO DAILY clopidogrel 75 mg tablet 75 mg PO DAILY Qty: 90 3RF cyclobenzaprine 10 mg tablet 10 mg PO TID PRN (Reason: pain) Qty: 18 0RF Rx Instructions: El efecto secundario es la somnolencia. No lo tome en el trabajo o mientras conduce. tramadol 50 mg tablet 50 mg PO Q6H PRN (Reason: pain) Qty: 20 0RF potassium chloride 10 mEq capsule, extended release 20 meq PO BID 7 Days Qty: 28 0RF ondansetron 4 mg tablet,disintegrating 4 mg PO Q6H PRN (Reason: nausea and vomiting) Qty: 10 0RF metformin 500 mg tablet extended release 24 hr 500 mg PO DAILY losartan 100 mg tablet 100 mg PO DAILY lorazepam 1 mg tablet 1 mg PO BID PRN (Reason: anxiety) atorvastatin 40 mg tablet 40 mg PO DAILY cyanocobalamin (vitamin B-12) 500 mcg tablet 500 mcg PO DAILY hydroxyzine pamoate 25 mg capsule 25 mg PO DAILY PRN metoprolol succinate 100 mg tablet extended release 24 hr 100 mg PO DAILY Interventions: ED Discharge Assessment Last Done: 12/28/24 03:15 Print Language: Slovak
[2024-12-28 03:15] VITALS: BP 155/82; PULSE 80; RESP 12; TEMP 36.8; O2SAT 99
== END 2024-12-28 03:35 | disposition home or self-care (01) ==
PROVIDERS: Emergency Provider Emergency Medicine; PCP Family Medicine
DX: R00.2 Palpitations (principal); F41.9 Anxiety disorder, unspecified; R21 Rash and other nonspecific skin eruption; E11.9 Type 2 diabetes mellitus without complications; I10 Essential (primary) hypertension; Z03.818 Encounter for observation for suspected exposure to other biological agents ruled out; Z79.899 Other long term (current) drug therapy
CPT/HCPCS: 0241U; 80053; 84484; 85025; 93005; 99283; 99284

== ENCOUNTER → 2024-12-28 01:57 | Outpatient (BNV) | payer OTHER, SELFPAY | PROVIDERS: Emergency Provider Emergency Medicine; PCP Family Medicine; Visit Provider Internal Medicine | DX: I25.2 Old myocardial infarction (principal); R00.0 Tachycardia, unspecified | CPT/HCPCS: 93010 ==

== ENCOUNTER 2025-01-08 11:48 | Outpatient (AMB) | payer OTHER, SELFPAY ==
[2025-01-08 11:51] VITALS: BP 160/74; PULSE 75; O2SAT 96; BMI 31.8
--- NOTE | 2025-01-08 11:51 | HO.NEPHOV_ITS ---
Vital Signs 01/08/25 11:51 Height 5 ft 1 in Weight 168 lb 2 oz BMI 31.8 BP 160/74 H Blood Pressure Location Lt brachial Position Sitting Pulse 75 Pulse Source Pulse Oximeter Pulse Oximetry (%) 96 Oxygen Delivery Method Room Air Intake Visit Reasons: Rscng Mailroom Courier Required: Yes Mailroom Courier Language: Robotype Operator Name: [id number] Angelika Accompanied by: Other Relationship Allergies hydrocodone [HYDROCODONE] Allergy (Unknown, Verified 01/08/25 11:54) UNKNOWN levofloxacin [LEVOFLOXACIN] Allergy (Unknown, Verified 01/08/25 11:54) Rash metronidazole [METRONIDAZOLE] Allergy (Unknown, Verified 01/08/25 11:54) UNK promethazine [PROMETHAZINE] Allergy (Unknown, Verified 01/08/25 11:54) Rash Codeine Allergy (Unknown, Uncoded 12/28/24 01:49) swelling/ itching/ hives dye contrast Allergy (Unknown, Uncoded 12/28/24 01:49) red skin Hydrocodone-Acetaminophen Allergy (Unknown, Uncoded 12/28/24 01:49) rash Medication List - Last Reconciled 01/08/25 by Tate Gracia MD atorvastatin 40 mg PO DAILY chlorthalidone 25 mg PO DAILY clopidogrel 75 mg PO DAILY cyanocobalamin (vitamin B-12) 500 mcg PO DAILY cyclobenzaprine 10 mg PO TID PRN hydroxyzine pamoate 25 mg PO DAILY PRN lorazepam 1 mg PO BID PRN losartan 100 mg PO DAILY metformin ER 500 mg PO DAILY metoprolol succinate ER 100 mg PO DAILY ondansetron 4 mg PO Q6H PRN pantoprazole (Protonix) 40 mg PO DAILY potassium chloride ER 20 mEq (2 x 10 mEq) PO BID 7 days tramadol 50 mg PO Q6H PRN Do you need a note to return to daycare/school/sports/work: No HPI Comments Details: Che is a pleasant 73-year-old woman with a history of hypertension requiring 3 antihypertensive agents. She has a left adrenal adenoma. She was seen by Dr. Flores in 2020 for the same issue. As per records ,MRI of the abdomen 03/31/2005 showed: MRI of the abdomen is consistent with 1.5 cm left adrenal cortical adenoma probably nonhyperfunctioning adenoma. CT abdomen from 04/18/2007 revealed: 1.5 cm left adrenal mass. She tells me that initially the adenoma was noted in 1995 in [place]. This size has been holding steady, over the past 25 years. It is unclear if she underwent any biochemical workup. Today she has no new complaints. She has generalized body pain which she attributes to fibromyalgia. No shortness of breath. No palpitations. No unexplained sweating. No weight loss or weight gain. No urinary symptoms. All other systems were reviewed 02/09/2024. She underwent workup as outlined. She is having burning sensation in her epigastric region on and off. She is waiting to see unemployment benefits claims taker 01/08/25 Interpretor service was used Overall she is doing well. No new issues. Seen by cardiology BP is sub optimal [facility] Medical History Diverticulitis Hypertension Surgical History H/O section Family History Father No problems noted. Mother CVD (cardiovascular disease) Social History Alcohol intake: never Patient Tobacco Use Status: Never used Tobacco Physical Exam Vital Signs: Last Vital Signs Pulse 75 01/08/25 11:51 BP 160/74 H 01/08/25 11:51 Pulse Ox 96 01/08/25 11:51 Oxygen Delivery Method Room Air 01/08/25 11:51 BMI result Body Mass Index 31.8 Const General: comfortable Nutritional Appearance: well nourished Orientation/consciousness: patient oriented x3 HEENT Head: No normal to inspection Mouth: moist mucous membranes Neck Neck: Yes supple and Yes no JVD Resp Auscultation: clear to auscultation bilaterally, no rales and No rub present Cardio Jugular venous distension: no JVD Palpation: no palpable S3 and no palpable S4 Heart sounds: no rubs GI Palpation (GI): Soft to palpation and nontender Percussion: No Fluid wave present General: Yes no CVA tenderness Back/Spine/Pelvis Back: no CVA tenderness Skin General skin exam: no rashes or lesions noted Neuro General: patient oriented x3 Extrem General: Yes no pedal edema and No clubbing Results Reviewed Nephrology Results: Hgb 14.1 g/dl (12.0-16.0) 12/28/24 WBC 6.9 X10*3/uL (4.8-10.8) 12/28/24 Plt Count 232 X10*3/uL (160-400) 12/28/24 Sodium 137 mmol/L (135-145) 12/28/24 Potassium 3.5 mmol/L (3.3-5.1) 12/28/24 Chloride 100 mmol/L (96-108) 12/28/24 Carbon Dioxide 25 mmol/L (22-29) 12/28/24 BUN 16 mg/dL (9-16) 12/28/24 Creatinine 0.76 mg/dL (0.5-1.4) 12/28/24 Calcium 9.4 mg/dL (8.4-10.2) 12/28/24 Urine Protein Negative mg/dL (Neg-Trace) 11/08/24 Urine Creatinine 161.01 mg/dL 11/08/24 Assessment & Plan Assessment & Plan (1) Hypertension: Code(s): I10 - Essential (primary) hypertension Category: Medical (2) 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 Based on the prior imaging studies it appears that this cyst has been reasonably stable. Biochemical workup - including plasma renin activity, aldosterone, dopamine, total catecholamines, epinephrine and norepinephrine are in the normal range. The blood pressure is Sub optimal. Renal function is stable. She has no significant alkalosis or hypokalemia. DC CHlrothalidone Start Aldactazide QD ( 01/08/25) We will continue to monitor the adrenal adenoma. Follow-up CT scan was done on 06/24/24 But radiologist has reported as Normal Adrenals' In 2022, it was reported as benign. Follow up CT ordered We discussed importance of weight loss. She should stay on low-sodium diet. No changes were made to medication today. Encouraged to follow up with her unemployment benefits claims taker. Mailroom Courier service was used. 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
--- OUTSIDE RECORDS SUMMARY | 2025-01-08 13:33 | XMS_ITS | Encounter Summary ---
Author Organization [facility] Address [address] [facility] 7t [place] [address] Care Team Providers Care Pet Counselor Name Role Phone Xuan Mckeon MD Primary Care Provider [phone] Yariel Schmid PharmD Unavailable [phone] Reason for Referral * Consultation (Routine) - Authorized Specialty Diagnoses / Procedures Referred By Contac t Referred To Contact Pharmacy Diagnoses Primary hypertension Type 2 diabetes mellitus without complication, without long-term current use of insulin (CMS/HCC) Xuan Mckeon MD [address] [place] [address] Phone: tel: fax: Referral ID Status Reason Start Date Expiration Date Visits Requested Visits Authorized [id number] Authorized Consult and Treat 07/18/2024 07/18/2025 6 6 Encounter Details Date Type Department Care Team (Late st Contact Info) Description 07/18/2024 Orders Only [facility] [address] [place] [address] [phone] Xuan Mckeon MD [address] [place], [place] [phone] Primary hypertension (Primary Dx); Type 2 diabetes [...] Description 01/11/2025 10:15 AM EDT Office Visit [facility] [address] [place] [phone] Xuan Mckeon MD [address] [place] [phone] 02/02/2025 11:30 AM EDT Medication Management [facility] [address] [place] [phone] Yariel Schmid, PharmD [address] [place] [address] Scheduled Referrals Name Type Priority Associated Diagnoses Orde r Schedule Referral to Pharmacy CDTM Outpatient Referral Routine Primary hypertension Type 2 diabetes mellitus without complication, without long-term current use of insulin ([facility]) Ordered: 07/18/2024 documented as of this encounter Goals Goal Patient Goal Type Associated Problems Recent Progress Patient-Stated? Author Blood Pressure < 140/90 Blood Pressure 156/90( 025 11:57 AM EST) No Yariel Schmid, Leelee documented as of this encounter Visit Diagnoses Diagnosis Primary hypertension- Primary Unspecified essential hypertension Type 2 diabetes mellitus without complication, without long-term current use of insulin ([facility]) documented in this encounter Additional Health Concerns Assessment Noted Time PHQ-9 Depression Total Score: 11 024 10:30 AM EDT documented as of this encounter Care Teams Pet Counselor Relationship Specialty Start Date End Date Xuan Mckeon MD [address] [place] [address] PCP - General Family Medicine 09/20/20 Yariel Schmid, CristóbalD [address] [place] [phone] Pharmacist Internal Medicine 11/23/22 documented as of this encounter
--- OUTSIDE RECORDS SUMMARY | 2025-01-08 13:33 | XMS_ITS | Clinical Summary ---
Author Organization [facility] Address [id number] [place] [id number] Care Team Providers Care Sugar Grinder Name Role Phone Unavailable Primary Care Provider [...]
--- OUTSIDE RECORDS SUMMARY | 2025-01-08 13:33 | XMS_ITS | Encounter Summary ---
Author Organization [employer] Address [address] [facility] [address] 7t [place] [address] Care Team Providers Care Chiropractic Doctor Name Role Phone Xuan Mckeon MD Primary Care Provider [phone] Yariel Schmid PharmD Unavailable [phone] Reason for Visit * Reason Comments Med Refill Encounter Details Date Type Department Care Team ([facility] st Contact Info) Description 10/18/2024 Refill [facility] [address] [place], [place] [phone] Xuan Mckeon MD [address] [place], [place] [phone] Fibromyalgia Social History Tobacco Use Types Packs/Day [...] Description 01/11/2025 10:15 AM EDT Office Visit [address] [address] Xuan Mckeon MD [address] [place] [address] 02/02/2025 11:30 AM EDT Medication Management [address] [address] Yariel Schmid PharmD [address] [place] [address] documented as of this encounter Goals Goal [...] documented as of this encounter Care Teams Chiropractic Doctor Relationship Specialty Start Date End Date Xuan Mckeon MD [address] [place] [address] PCP - General Family Medicine 09/20/20 Yariel Schmid, Leelee [address] [place] [address] Pharmacist Internal Medicine 11/23/22 documented as of this encounter
--- OUTSIDE RECORDS SUMMARY | 2025-01-08 13:33 | XMS_ITS | Encounter Summary ---
Author Organization [facility] Address [address] [facility] 7t [place] [address] Care Team Providers Care Mobile Home Laborer Name Role Phone Xuan Mckeon MD Primary Care Provider [phone] Yariel Schmid PharmD Unavailable [phone] Reason for Visit * Reason Comments Med Refill Encounter Details Date Type Department Care Team (Late st Contact Info) Description 04/07/2023 Refill [facility] [address] [place] [address] [phone] Xuan Mckeon MD [address] [place] [address] [phone] Vitamin B12 deficiency Social History Tobacco Use [...] 01/11/2025 10:15 AM EDT Office Visit [facility] [address] [place] [address] [phone] Xuan Mckeon MD [address] [place] [address] [phone] 02/02/2025 11:30 AM EDT Medication Management [facility] [address] [place] [address] Yariel Schmid, PharmD [address] [place] [address] documented as of this encounter Goals Goal [...] documented as of this encounter Care Teams Mobile Home Laborer Relationship Specialty Start Date End Date Xuan Mckeon MD [address] [place] [address] PCP - General Family Medicine 09/20/20 Yariel Schmid, PharmD [address] [place] [phone] Pharmacist Internal Medicine 11/23/22 documented as of this encounter
--- OUTSIDE RECORDS SUMMARY | 2025-01-08 13:33 | XMS_ITS | Encounter Summary ---
Author Organization [employer] Address [address] [facility] 7t [place] [address] Care Team Providers Care Bolt Man Name Role Phone Xuan Mckeon MD Primary Care Provider [phone] Yariel Schmid PharmD Unavailable [phone] Encounter Details Date Type Department Care Team (Late st Contact Info) Description 09/23/2022 Orders Only [facility] [address] [place] [address] Shannon Rich LPN Social History Tobacco Use [...] Description 01/11/2025 10:15 AM EDT Office Visit [facility] [address] [place] [address] Xuan Mckeon MD [address] [place] [address] [phone] 02/02/2025 11:30 AM EDT Medication Management [facility] [address] [place] [address] [phone] Yariel Schmid, PharmD [address] [place], [place] [phone] documented as of this encounter Visit Diagnoses Not on filedocumented in this encounter Care Teams Bolt Man Relationship Specialty Start Date End Date Xuan Mckeon MD [address] [place], [place] [phone] PCP - General Family Medicine 09/20/20 Yariel Schmid, Leelee [address] [place] [phone] Pharmacist Internal Medicine 11/23/22 documented as of this encounter
--- OUTSIDE RECORDS SUMMARY | 2025-01-08 13:33 | XMS_ITS | Encounter Summary ---
Author Organization [employer] Address [address] [facility] 7t [place] [address] Care Team Providers Care Publishing Editor Name Role Phone Xuan Mckeon MD Primary Care Provider [phone] Yariel Schmid PharmD Unavailable [phone] Reason for Visit * Reason Comments Med Refill Encounter Details Date Type Department Care Team ([facility] Contact Info) Description 10/06/2022 Refill [facility] [address] [place], [place] [phone] Ofelia Akhtar ANP [address] [place] [address] Other specified anxiety disorders Social History Tobacco [...] Upcoming Encounters Date Type Department Care Team ([facility] Contact Info) Description 01/11/2025 10:15 AM EDT Office Visit [facility] [address] [place], [place] [phone] Xuan Mckeon MD [address] [place] [address] 02/02/2025 11:30 AM EDT Medication Management [facility] [address] [place], [place] [phone] Yariel Schmid, PharmD [address] [place] [address] documented as of this encounter Visit Diagnoses Diagnosis Other specified anxiety disorders documented in this encounter Care Teams Publishing Editor Relationship Specialty Start Date End Date Xuan Mckeon MD [address] [place] [address] [phone] PCP - General Family Medicine 09/20/20 Yariel Schmid, PharmD [address] [place] [address] [phone] Pharmacist Internal Medicine 11/23/22 documented as of this encounter
--- OUTSIDE RECORDS SUMMARY | 2025-01-08 13:33 | XMS_ITS | Encounter Summary ---
Author Organization [employer] Address [address] [facility] 7t [place] [address] Care Team Providers Care Clinical Resource Director Name Role Phone Xuan Mckeon MD Primary Care Provider [phone] Yariel Schmid PharmD Unavailable [phone] Reason for Visit * Reason Comments Med Refill Encounter Details Date Type Department Care Team (Late Contact Info) Description 03/18/2023 Refill [facility] [address] [place], [place] [phone] Xuan Mckeon MD [address] [place], [place] [phone] Other specified anxiety disorders Social History Tobacco [...] Description 01/11/2025 10:15 AM EDT Office Visit [facility] [address] [place], [place] [phone] Xuan Mckeon MD [address] [place], [place] [phone] 02/02/2025 11:30 AM EDT Medication Management [facility] [address] [place] [address] Yariel Schmid, PharmD [address] [place] [address] documented as of this encounter Goals Goal [...] documented as of this encounter Care Teams Clinical Resource Director Relationship Specialty Start Date End Date Xuan Mckeon MD [address] [place] [address] PCP - General Family Medicine 09/20/20 Yariel Schmid, PharmD [address] [place] [phone] Pharmacist Internal Medicine 11/23/22 documented as of this encounter
--- OUTSIDE RECORDS SUMMARY | 2025-01-08 13:33 | XMS_ITS | Encounter Summary ---
Author Organization [employer] Address [address] [facility] [address] 7[address] [place] [address] Care Team Providers Care Tea Room Manager Name Role Phone Xuan Mckeon MD Primary Care Provider [phone] Yariel Schmid PharmD Unavailable [phone] Reason for Visit * Reason Onset Date Comments Appointment Request 08/23/2024 Encounter Details Date Type Department Care Team ([facility] st Contact Info) Description 08/23/2024 Telephone [facility] [address] [place] [address] Xuan Mckeon MD [address] [place] [address] Appointment Request Social History Tobacco Use Types [...] today's CDTM visit. Please contact pt at [phone]. ([place] Islander Speaker) documented in this encounter Plan of Treatment Upcoming Encounters Date Type Department Care Team ([facility] st Contact Info) Description 01/11/2025 10:15 AM EDT Office Visit [facility] [address] [place] [phone] Xuan Mckeon MD [address] [place] [address] 02/02/2025 11:30 AM EDT Medication Management [facility] [address] [place] [address] Yariel Schmid, PharmD [address] [place] [address] documented as of this encounter Goals Goal [...] documented as of this encounter Care Teams Tea Room Manager Relationship Specialty Start Date End Date Xuan Mckeon MD [address] [place] [address] PCP - General Family Medicine 09/20/20 Yariel Schmid, PharmD [address] [place] [address] Pharmacist Internal Medicine 11/23/22 documented as of this encounter
--- OUTSIDE RECORDS SUMMARY | 2025-01-08 13:33 | XMS_ITS | Encounter Summary ---
Author Organization [employer] [facility] Address [address] [facility] 7t [place] [address] Care Team Providers Care Igniter Capper Name Role Phone Xuan Mckeon MD Primary Care Provider [phone] Yariel Schmid PharmD Unavailable [phone] Encounter Details Date Type Department Care Team (Latest Contact Info) Description 01/23/2022 Abstract [facility] CONVERSIONS Dental, Provider, DDS Social History Tobacco [...] 10:15 AM EDT Office Visit [facility] [address] [place] [phone] Xuan Mckeon MD [address] [place] [address] 02/02/2025 11:30 AM EDT Medication Management [facility] [address] [place] [phone] Yariel Schmid, PharmD [address] [place] [address] documented as of this encounter Visit Diagnoses Not on filedocumented in this encounter Care Teams Igniter Capper Relationship Specialty Start Date End Date Xuan Mckeon MD [address] [place] [address] PCP - General Family Medicine 09/20/20 Yariel Schmid, CristóbalD [address] [place] [address] Pharmacist Internal Medicine 11/23/22 documented as of this encounter
--- OUTSIDE RECORDS SUMMARY | 2025-01-08 13:33 | XMS_ITS | Encounter Summary ---
Author Organization [employer] Address [address] [place] [facility] [address] 7[address] [place] [address] Care Team Providers Care Adjunct Political Science Instructor Name Role Phone Xuan Mckeon MD Primary Care Provider [phone] Yariel Schmid PharmD Unavailable [phone] Encounter Details Date Type Department Care Team (Late st Contact Info) Description 12/06/2023 Orders Only [facility] [address] [place], [place] [phone] Xuan Mckeon MD [address] [place], [place] [phone] Social History Tobacco Use Types Packs/Day Years [...] AM EDT Office Visit [facility] [address] [place] [address] Xuan Mckeon MD [address] [place] [address] 02/02/2025 11:30 AM EDT Medication Management [address] [address] Yariel Schmid, PharmD [address] [place] [address] documented as of this encounter Goals Goal [...] documented as of this encounter Care Teams Adjunct Political Science Instructor Relationship Specialty Start Date End Date Xuan Mckeon MD [address] [place] [address] [phone] PCP - General Family Medicine 09/20/20 Yariel Schmid PharmD [address] [place] [address] [phone] Pharmacist Internal Medicine 11/23/22 documented as of this encounter
--- OUTSIDE RECORDS SUMMARY | 2025-01-08 13:33 | XMS_ITS | Encounter Summary ---
Author Organization [employer] Address [address] [facility] [address] 7t [place] [address] Care Team Providers Care Pipelines Superintendent Name Role Phone Xuan Mckeon MD Primary Care Provider [phone] Yariel Schmid PharmD Unavailable [phone] Encounter Details Date Type Department Care Team (Late st Contact Info) Description 10/22/2023 Orders Only [facility] [address] [place], [place] [phone] Xuan Mckeon MD [address] [place], [place] [phone] Social History Tobacco Use Types Packs/Day Years [...] EDT Office Visit [facility] [address] [place] [address] Xuan Mckeon MD [address] [place] [address] 02/02/2025 11:30 AM EDT Medication Management [address] [address] Yariel Schmid, PharmD [address] [place] [address] documented as of this encounter Goals Goal [...] documented as of this encounter Care Teams Pipelines Superintendent Relationship Specialty Start Date End Date Xuan Mckeon MD [address] [place] [address] [phone] PCP - General Family Medicine 09/20/20 Yariel Schmid PharmD [address] [place] [address] [phone] Pharmacist Internal Medicine 11/23/22 documented as of this encounter
--- OUTSIDE RECORDS SUMMARY | 2025-01-08 13:33 | XMS_ITS | Encounter Summary ---
Author Organization [employer] Address [address] [place] [address] Care Team Providers Care Commercial Banker Name Role Phone Xuan Mckeon MD Primary Care Provider [phone] Yariel Schmid PharmD Unavailable [phone] Encounter Details Date Type Department Care Team (Late st Contact Info) Description 09/20/2024 Orders Only [facility] [address] [place], [place] [phone] Xuan Mckeon MD [address] [place], [place] [phone] Left lower quadrant abdominal pain (Primary Dx); [...] Description 01/11/2025 10:15 AM EDT Office Visit [facility] [address] [place] [phone] Xuan Mckeon MD [address] [place] [address] 02/02/2025 11:30 AM EDT Medication Management [facility] [address] [place] [phone] Yariel Schmid PharmD [address] [place] [phone] documented as of this encounter Goals Goal [...] Sedimentation Rate 25(H) 0 - 20 MM/HR [facility] Comment:Patients with polycy themia and many hemoglobin abnormalitiesmay have depressed sed rates whereas patients with anemiamay have elevated sed rates. Blood Venous blood specimen / Unknown 09/21/2024 9:16 AM EST 09/21/2024 11:12 AM EST Xuan Mckeon MD LAB BLOOD ORDERABLES Final Resul t Performing Organization Address [facility]/ZIP Co de Phone Number [facility] [address] [place] [phone] * (ABNORMAL) C-reactive Protein (09/21/2024 9:16 AM EST) Pathologist [facility] C Reactive Protein 0.96(H) < or = 0.50 mg/dL [facility] Blood Venous blood specimen / Unknown 09/21/2024 9:16 AM EST 09/21/2024 11:12 AM EST Xuan Mckeon MD LAB BLOOD ORDERABLES Final Resul t [facility] [address] [place] [phone] * (ABNORMAL) CBC auto differential (09/21/2024 9:16 AM EST) White Blood Count 6.2 4.8 - 10.8 X10*3/uL [facility] Red Blood Count 3.99(L) 4.20 - 5.50 X10*6/uL [facility] Hemoglobin 12.4 12.0 - 16.0 g/dl [facility] Hematocrit 36.3(L) 37.0 - 47.0 % [facility] Mean Corpuscular Volume 91.0 80.0 - 98.0 fL [facility] Mean Corpuscular Hemoglobin 31.1 27.0 - 33.0 pg [facility] Mean Corpuscular HGB Conc 34.2 31.0 - 35.0 g/dl [facility] Red Cell Distribution Width 12.5 11.0 - 16.0 % [facility] Platelet Count 288 160 - 400 X10*3/uL [facility] Mean Platelet Volume 10.5 9.4 - 12.3 fL [facility] Neutrophils Percent Auto 70.5 45 - 73 % [facility] Imm Gran Pct Auto 0.3 0.0 - 0.4 % [facility] Lymphocytes Percent Auto 20.0 20 - 40 % [facility] Monocytes Percent Auto 7.1 2 - 11 % [facility] Eosinophils Percent Auto 1.6 0 - 4 % [facility] Basophils Percent Auto 0.5 0 - 2 % [facility] NRBC Pct Auto 0.0 0.0 - 0.2 /100WBC [facility] Neutrophils Absolute Auto 4.3 2.0 - 8.3 x10*3/uL [facility] Imm Gran Abs Auto 0.02 0.00 - 0.03 X10*3/uL [facility] Lymphocytes Absolute Auto 1.2 1.2 - 4.9 X10*3/uL [facility] Monocytes Absolute Auto 0.4 0.1 - 1.2 X10*3/uL [facility] Eosinophils Absolute Auto 0.1 0.0 - 0.4 X10*3/uL [facility] Basophils Absolute Auto 0.0 0.0 - 0.2 X10*3/uL [facility] NRBC Abs Auto 0.000 0.0 - 0.012 X10*3/uL [facility] Blood Venous blood specimen / Unknown 09/21/2024 9:16 AM EST 09/21/2024 11:12 AM EST Xuan Mckeon MD LAB BLOOD ORDERABLES Final Resul t [facility] [address] [place] [phone] documented in this encounter Visit Diagnoses Diagnosis Left lower quadrant abdominal pain- Primary Diverticulitis Diverticulitis of colon (without mention of hemorrhage) documented in this encounter Additional Health Concerns Assessment Noted Time PHQ-9 Depression Total Score: 11 024 10:30 AM EDT documented as of this encounter Care Teams Commercial Banker Relationship Specialty Start Date End Date Xuan Mckeon MD [address] [place] [phone] PCP - General Family Medicine 09/20/20 Yariel Schmid, CristóbalD [address] [place] [phone] Pharmacist Internal Medicine 11/23/22 documented as of this encounter
--- OUTSIDE RECORDS SUMMARY | 2025-01-08 13:33 | XMS_ITS | Encounter Summary ---
Author Organization [employer] Address [address] [place] [address] Care Team Providers Care Wet Process Miller Head Assistant Name Role Phone Xuan Mckeon MD Primary Care Provider [phone] Yariel Schmid PharmD Unavailable [phone] Encounter Details Date Type Department Care Team (Late st Contact Info) Description 12/24/2023 Orders Only [facility] [address] [place], [place] [phone] Xuan Mckeon MD [address] [place], [place] [phone] Dermatitis (Primary Dx) Social History Tobacco Use [...] Upcoming Encounters Date Type Department Care Team ([facility] st Contact Info) Description 01/11/2025 10:15 AM EDT Office Visit [facility] [address] [place] [phone] Xuan Mckeon MD [address] [place] [phone] 02/02/2025 11:30 AM EDT Medication Management [facility] [address] [place] [phone] Yariel Schmid PharmD [address] [place] [phone] documented as of this encounter Goals Goal Patient Goal Type Associated Problems Recent Progress Patient-Stated? Author Blood Pressure < 140/90 Blood Pressure 156/90( 025 11:57 AM EST) No Yariel Schmid, CristóbalD documented as of this encounter Visit Diagnoses Diagnosis Dermatitis- Primary Contact dermatitis and other eczema, due to unspecified cause documented in this encounter Additional Health Concerns Assessment Noted Time PHQ-9 Depression Total Score: 4 12/18/19 23 10:48 AM EDT documented as of this encounter Care Teams Wet Process Miller Head Assistant Relationship Specialty Start Date End Date Xuan Mckeon MD [address] [place] [phone] PCP - General Family Medicine 09/20/20 Yariel Schmid, PharmD [address] [place] [phone] Pharmacist Internal Medicine 11/23/22 documented as of this encounter
--- OUTSIDE RECORDS SUMMARY | 2025-01-08 13:33 | XMS_ITS | Encounter Summary ---
Author Organization [employer] Address [address] [place] [address] Care Team Providers Care Turpentine Distiller Name Role Phone Xuan Mckeon MD Primary Care Provider [phone] Yariel Schmid PharmD Unavailable [phone] Reason for Visit * Reason Comments Med Refill Encounter Details Date Type Department Care Team ([facility] st Contact Info) Description 10/05/2023 Refill [facility] [address] [place], [place] [phone] Xuan Mckeon MD [address] [place], [place] [phone] Vitamin B12 deficiency Social History Tobacco Use [...] 10:15 AM EDT Office Visit [facility] [address] [place] [phone] Xuan Mckeon MD [address] [place] [phone] 02/02/2025 11:30 AM EDT Medication Management [facility] [address] [place] [phone] Yariel Schmid PharmD [address] [place] [phone] documented as of this encounter Goals Goal [...] documented as of this encounter Care Teams Turpentine Distiller Relationship Specialty Start Date End Date Xuan Mckeon MD [address] [place] [phone] PCP - General Family Medicine 09/20/20 Yariel Schmid, PharmD [address] [place] [phone] Pharmacist Internal Medicine 11/23/22 documented as of this encounter
--- OUTSIDE RECORDS SUMMARY | 2025-01-08 13:33 | XMS_ITS | Clinical Summary ---
Author Organization [employer] Address [address] [facility] [address] [facility] [address] [place] [address] Care Team Providers Care Pattern Changer Name Role Phone Xuan Mckeon MD Primary Care Provider [phone] Yariel Schmid PharmD Unavailable [phone] Allergies Active Allergy Reactions Criticality Noted Date [...] complication, without long-term current use of insulin ([facility]) USE TWICE DAILY 100 each [...] complication, without long-term current use of insulin ([facility]) TEST BLOOD SUGAR TWICE DAILY [...] has already been seen and treated by design engineering specialist. She states she could not complete [...] Plan (12/17/2022 11:27 AM EDT): Seen by [place] Burner Operator, Dr. Karimi, on 11/26/22. Reported exertional Cheat [...] -BP not at goal today -Co-managed with food service driver and PharmD. -pt advised to continue checking BP at home -food service driver: Dr. Karimi, last visit in 11/26/22; exertional [...] -BP not at goal today -Co-managed with food service driver and PharmD. -pt advised to continue checking BP at home -food service driver: Dr. Karimi, last visit in 11/26/22; exertional [...] -BP not at goal today -Co-managed with food service driver and PharmD. -pt advised to continue checking BP at home -food service driver: Dr. Karimi, last visit in 11/26/22; exertional [...] < 130/80 per ACC/AHA - co-managed with food service driver and PharmD. -pt advised to continue checking BP at home -food service driver: Dr. Karimi, last visit in 11/26/22; exertional [...] < 130/80 per ACC/AHA - co-managed with food service driver and PharmD. -pt advised to continue checking BP at home -food service driver: Dr. Karimi, last visit in 11/26/22; exertional [...] advised to continue checking BP at home -food service driver: Dr. Karimi, last visit in 11/26/22; exertional [...] advised to continue checking BP at home -food service driver: Dr. Karimi, last visit in 07/06/22; concerns [...] on 07/03/22 - Started on Plavix by food service driver; ASA was discontinued due to GI bleed - Continue statin, clopidogrel, and losartan - Continue working on lifestyle modification / risk factor management Assessment & Plan (11/30/2023 4:38 AM EDT): - seen in ED on 07/03/22 - Started on Plavix by food service driver; ASA was discontinued due to GI bleed - Continue statin, clopidogrel, and losartan - Continue working on lifestyle modification / risk factor management Assessment & Plan (12/17/2022 11:23 AM EDT): - seen in ED on 07/03/22 - Started on Plavix by food service driver; ASA was discontinued due to GI bleed - Continue statin, clopidogrel, and losartan - Continue working on lifestyle modification / risk factor management Assessment & Plan (10/04/2022 5:51 AM EST): - seen in ED on 07/03/22 - Started on Plavix by food service driver; ASA was discontinued due to GI bleed [...] describes 3 episodes, last on treated at [facility] on 04/2012 Assessment & Plan (10/17/2024 [...] Encounters Date Type Department Care Team Description 12/28/2024 Orders Only GENERIC EXTERNAL DATA DEPARTMENT Provider, Generic External Data 12/20/2024 Refill [facility] [address] [place] [address] Xuan Mckeon MD Fibromyalgia 12/13/2024 Telephone [facility] [address] [place] [address] Xuan Mckeon MD Prior Authorization ([employer] [facility]: cyclobenzaprine (Flexeril) 10 MG tablet) 12/13/2024 Telephone [facility] [address] [place] [place] [address] Xuan Mckeon MD Prior Authorization ([facility] Request: hydrOXYzine Pamoate 25MG capsules) 12/05/2024 1:30 PM EDT Office Visit [facility] [address] [place] [address] Rodrigo Perez DDS 12/05/2024 Telephone [facility] [address] [place] [phone] Xuan Mckeon MD medical clearance for dental question 11/23/2024 Refill [facility] [address] [place] [address] Xuan Mckeon MD 11/14/2024 Refill [facility] [address] [facility] [place] [address] Xuan Mckeon MD Fibromyalgia 11/09/2024 Telephone [facility] [address] [place] [address] Nydia Bartlett, NILDA Results 11/08/2024 Orders Only GENERIC EXTERNAL DATA DEPARTMENT Provider, Generic External Data 11/02/2024 Refill [facility] [address] [place] [address] Xuan Mckeon MD Urticaria 11/01/2024 Telephone [facility] [address] [place], [place] [phone] Meliza Cleveland, NILDA Paperwork/Forms 10/31/2024 1:00 PM EST Office Visit [facility] ADULT DENTAL [address] [place] [address] Rodrigo Perez DDS Cerebrovascular accident (CVA), unspecified mechanism (CMS/HCC) (Primary Dx) 10/24/2024 Refill [facility] [address] [place], [place] [phone] Xuan Mckeon MD Dyslipidemia; Vitamin deficiency 10/18/2024 Refill [facility] [address] [place], [place] [phone] Xuan Mckeon MD Fibromyalgia from Last 3 Months Immunizations Name Administration [...] 10:15 AM EDT Office Visit [facility] [address] [place] [address] Xuan Mckeon MD [address] [place], [place] [phone] 02/02/2025 11:30 AM EDT Medication Management [facility] [address] [place], [place] [phone] Yariel Schmid, CristóbalD [address] [place], [place] [phone] Health Maintenance Due Date Last Done Comments [...] COVID-19 Vaccine ( season) 2024 07/23/2021, 12/18/2020 FOBT 01/11/2025 01/12/2024 Eye Exam 02/23/2025 02/23/2023 Diabetes: Hemoglobin A1C 04/09/202510/10/ 025, 09/18/2024, 04/26/2024, Additional history exists Depression [...] 11:57 AM EST) No Yariel Schmid, PharmD Procedures Procedure Name Priority Date/Time Associated Diagnosis Comments COMPREHENSIVE METABOLIC PANEL Routine 12/28/2024 2:06 AM EDT HIGH SENSITIVITY TROPONIN I Routine 12/28/2024 2:06 AM EDT CBC WITH AUTO DIFFERENTIAL Routine 12/28/2024 2:06 AM EDT SARS COV2/INFLUENZA A/B AND RSV RNA QL NAAT Routine 12/28/2024 2:06 AM EDT NO CHARGE VISIT Routine 12/05/2024 1:30 PM [...] HM FIT DNA/COLOGUARD CANCER SCREENING Routine 01/12/2024 HM DIABETES EYE EXAM Routine 02/23/2023 PROPHYLAXIS - [...] Recently Relevant to Health Maintenance Results * High Sensitivity Troponin I (12/28/2024 2:06 AM EDT) Pathologist [facility] TROPONIN I HIGH SENSITIVITY 7.1 <3.5 - 17.0 ng/L [facility] Comment:The [place] high sens itivity Troponin-I results should beused in conjunction with other diagnostic information suchas ECG, clinical observations and information, and patientsymptoms to aid in the diagnosis of [place]. 12/28/2024 2:06 AM EDT 12/28/2024 2:13 AM EDT us Generic External Data Provider LAB BLOOD ORDERAB LES Final Result [facility] [address] [place] [phone] * SARS-CoV-2 RNA, Influenza A/B, and RSV RNA, Ql NAAT (12/28/2024 2:06 AM EDT) Pathologist [facility] Influenza A PCR NEGATIVE Negative [facility] Influenza B PCR NEGATIVE Negative [facility] Resp Syncy Virus RNA Qual PCR NEGATIVE Negative [facility] SARS COV2 PCR NEGATIVE Negative [facility] Comment:All test results mus t be correlated with clinical findings.Negative results do not preclude SARS-CoV2, influenza Avirus, influenza B virus and/or RSV infectionand should not be used as the sole basis for treatment orother patient management decisions. Negative results must becombined with clinical observations, patient history, andepidemiological information.This test has not been evaluated for monitoring treatment ofinfection.This test has been authorized by the FDA under an EmergencyUse Authorization (EUA) for use by authorized laboratories.Testing performed on the [employer] GeneXpert utilizingreal-time RT-PCR.All SARS CoV2 and positive influenza A/B results arereported to [facility]. 12/28/2024 2:06 AM EDT 12/28/2024 2:13 AM EDT us Generic External Data Provider LAB MICROBIOLOGY - GENERAL ORDERABLES Final Result [facility] [address] [place] [phone] * (ABNORMAL) CBC auto differential (12/28/2024 2:06 AM EDT) White Blood Count 6.9 4.8 - 10.8 X10*3/uL [facility] Red Blood Count 4.44 4.20 - 5.50 X10*6/uL [facility] Hemoglobin 14.1 12.0 - 16.0 g/dl [facility] Hematocrit 39.1 37.0 - 47.0 % [facility] Mean Corpuscular Volume 88.1 80.0 - 98.0 fL [facility] Mean Corpuscular Hemoglobin 31.8 27.0 - 33.0 pg [facility] Mean Corpuscular HGB Conc 36.1(H) 31.0 - 35.0 g/dl [facility] Red Cell Distribution Width 12.7 11.0 - 16.0 % [facility] Platelet Count 232 160 - 400 X10*3/uL [facility] Mean Platelet Volume 9.5 9.4 - 12.3 fL [facility] Neutrophils Percent Auto 58.0 45 - 73 % [facility] Imm Gran Pct Auto 0.1 0.0 - 0.4 % [facility] Lymphocytes Percent Auto 31.5 20 - 40 % [facility] Monocytes Percent Auto 8.1 2 - 11 % [facility] Eosinophils Percent Auto 1.9 0 - 4 % [facility] Basophils Percent Auto 0.4 0 - 2 % [facility] NRBC Pct Auto 0.0 0.0 - 0.2 /100WBC [facility] Neutrophils Absolute Auto 4.0 2.0 - 8.3 x10*3/uL [facility] Imm Gran Abs Auto 0.01 0.00 - 0.03 X10*3/uL [facility] Lymphocytes Absolute Auto 2.2 1.2 - 4.9 X10*3/uL [facility] Monocytes Absolute Auto 0.6 0.1 - 1.2 X10*3/uL [facility] Eosinophils Absolute Auto 0.1 0.0 - 0.4 X10*3/uL [facility] Basophils Absolute Auto 0.0 0.0 - 0.2 X10*3/uL [facility] NRBC Abs Auto 0.000 0.0 - 0.012 X10*3/uL [facility] 12/28/2024 2:06 AM EDT 12/28/2024 2:13 AM EDT us Generic External Data Provider LAB BLOOD ORDERAB LES Final Result [facility] [address] [place], [place] [phone] * (ABNORMAL) Comprehensive Metabolic Panel (12/28/2024 2:06 AM EDT) Sodium 137 135 - 145 mmol/L [facility] Potassium 3.5 3.3 - 5.1 mmol/L [facility] Chloride 100 96 - 108 mmol/L [facility] Carbon Dioxide 25 22 - 29 mmol/L [facility] Anion Gap 16 12 - 20 [facility] Urea Nitrogen (BUN) 16 9 - 16 mg/dL [facility] Creatinine, Serum 0.76 0.5 - 1.4 mg/dL [facility] Creatinine Clr Calc Pharmacy 61.4 [facility] Comment:Provided height and weight: 154.94 cm,75.8 kg.eGFR (calculated from the MDRD study equation) and eCrCl(calculated from the Cockcroft-Gault equation) are based ondifferent parameters and may not yield comparable results.If eCrCl result is absurd, please check patient'sheight/weight. Estimated Glomerular Filt Rate >60 [facility] Comment:Chronic Kidney Disea se: Estimated GFR < 60 mL/min/1.83r7Mlufag Kidney Disease: Estimated GFR < 15 mL/min/1.73m2 Glucose 154(H) 60 - 115 mg/dL [facility] Calcium 9.4 8.4 - 10.2 mg/dL [facility] Bilirubin, Total 0.4 0.0 - 1.0 mg/dL [facility] Aspartate Amino Transferase 22 5 - 31 U/L [facility] Alanine Aminotransferase 16 0 - 31 U/L [facility] Total Protein 6.5 6.5 - 8.0 g/dL [facility] Albumin Level 4.2 3.5 - 5.0 g/dL [facility] Alkaline Phosphatase 47 39 - 117 U/L [facility] 12/28/2024 2:06 AM EDT 12/28/2024 2:13 AM EDT us Generic External Data Provider LAB BLOOD ORDERAB LES Final Result [facility] [address] [place] [phone] * (ABNORMAL) Lipid Panel with Reflex to Direct LDL (11/08/2024 9:12 AM EST) Triglycerides 229(H) <150 mg/dL [facility] Comment:Desirable Triglyceri de: less than 150 mg/dLBorderline High Triglyceride 150-199 mg/dLHigh Triglyceride: 200-499 mg/dLVery High Triglyceride: greater than or equal to 5OO mg/dL Cholesterol 166 <200 mg/dL [facility] Comment:Desirable Cholestero l: less than 200 mg/dLBorderline High Cholesterol: 200-239 mg/dLHigh Cholesterol: greater than 239 mg/dL LDL Cholesterol Calculated 83 <100 mg/dL [facility] Comment:Desirable LDL: less than 100 mg/dLNear Optimal/Above Optimal LDL: 110- 129 mg/dLBorderline High LDL: 130-159 mg/dLHigh LDL: 160-189 mg/dLVery High LDL: greater than or equal to 190 mg/dL HDL Cholesterol 38(L) >40 mg/dL [facility] Comment:Desirable HDL: great er than 40 mg/dL Note: This HDL assay may give artificially low results in patients with liver disease. Blood 11/08/2024 9:12 AM EST 11/08/2024 11:25 AM EST us Xuan Mckeon MD LAB BLOOD ORDERABLES Final Resul t Performing Organization Address [facility] Co de Phone Number [facility] [address] [place] [phone] * Albumin, Random Urine W/Creatinine (11/08/2024 9:12 AM EST) Creatinine, Urine 161.01 mg/dL [facility] Microalbumin Urine 6.0 mg/L [facility] Microalbum Creatinine Ratio Ur 3.7 <30 ug/mg cr [facility] Comment:Albumin/Creatinine R atio Reference Ranges: Normal: < 30 ug/mg creatinine Microalbuminuria: 30 - 300 ug/mg creatinineClinical Albuminuria: > 300 ug/mg creatinine Urine 11/08/2024 9:12 AM EST 11/08/2024 11:25 AM EST us Xuan Mckeon MD LAB URINE ORDERABLES Final Resul t Performing Organization Address [facility] Co de Phone Number [facility] [address] [place] [phone] * (ABNORMAL) Urinalysis Complete (11/08/2024 9:12 AM EST) Color Urine Yellow [facility] Appearance Urine Clear [facility] PH 6.0 5.0 - 9.0 [facility] Glucose Urine UA Negative Negative mg/dL [facility] Urine Blood Negative Negative [facility] Specific [place] - Urine 1.020 1.005 - 1.025 [facility] Urine Protein Negative Neg-Trace mg/dL [facility] Urine Ketones Negative Negative mg/dL [facility] Nitrite Urine Negative Negative [facility] Leukocyte Esterase Urine Trace(A) Negative [facility] RBC Urine 0-2 0 - 2 /HPF [facility] Urine WBC 11-20(A) 0 - 5 /HPF [facility] Urine Squamous Epithelial Cell 0-2 0 - 2 /HPF [facility] Urine Bacteria 3+ None Seen [facility] Hyaline Casts, Urine 0-2 0 - 2 /LPF [facility] 11/08/2024 9:12 AM EST 11/08/2024 11:25 AM EST us Generic External Data Provider LAB URINE ORDERAB LES Final Result Performing Organization Address [facility]/ZIP Co de Phone Number [facility] [address] [place] [phone] * Magnesium (11/08/2024 9:12 AM EST) Magnesium 1.8 1.6 - 2.6 mg/dL [facility] Blood Venous blood specimen / Unknown 11/08/2024 9:12 AM EST 11/08/2024 11:25 AM EST us Xuan Mckeon MD LAB BLOOD ORDERABLES Final Resul t Performing Organization Address [facility] Co de Phone Number [facility] [address] [place] [address] [phone] * (ABNORMAL) Basic Metabolic Panel (11/08/2024 9:12 AM EST) Only the most recent of2 resultswithin the time period is included. Sodium 139 135 - 145 mmol/L [facility] Potassium 3.8 3.3 - 5.1 mmol/L [facility] Chloride 103 96 - 108 mmol/L [facility] Carbon Dioxide 31(H) 22 - 29 mmol/L [facility] Anion Gap 9(L) 12 - 20 [facility] Urea Nitrogen (BUN) 12 9 - 16 mg/dL [facility] Creatinine, Serum 0.73 0.5 - 1.4 mg/dL [facility] Estimated Glomerular Filt Rate >60 [facility] Comment:Chronic Kidney Disea se: Estimated GFR < 60 mL/min/1.95a3Qskckn Kidney Disease: Estimated GFR < 15 mL/min/1.73m2 Glucose 112 60 - 115 mg/dL [facility] Calcium 9.3 8.4 - 10.2 mg/dL [facility] 11/08/2024 9:12 AM EST 11/08/2024 11:25 AM EST us Generic External Data Provider LAB BLOOD ORDERAB LES Final Result Performing Organization Address City/State/[facility] Co de Phone Number [facility] [address] [place] [phone] * (ABNORMAL) POCT glycosylated hemoglobin (Hgb A1c) (10/10/2024 11:58 AM EST) Hemoglobin A1C 6.9(A) 4.0 - 6.0 % QC Media Lot # [id number] Lot# Expiration Date ,02 6 Blood Capillary blood specimen / Unknown 10/10/2024 11:58 AM EST Xuan Mckeon MD POINT OF CARE TEST ENTER/EDIT OR DERABLES Final Result * BI Mammogram Screening Tomosynthesis Bilateral (2024 9:15 AM EDT) Anatomical Region Laterality Modality Breast Bilateral Mammography 2024 9:15 AM EDT Narrative 06/15/2024 7:13 PM EDT ? [facility] ? [address] ?[place] [address] ? Mammography Report ? Signed ? Patient: Gaby Owen,Che ?MR ?? #: [id number] ? : 1950 ?Acct:[id number] ? Age/Sex: 74 / F ?ADM Date: 06/06/24 ? Loc: HO.MAMMO ? Attending Dr: Xuan Mckeon MD ? Ordering Physician: Xuan Mckeon MD ?Results: 1Negative ? Date of Service: 06/06/24 ?Follow Up: 1 Year From Orig ?? inal Mammogram ? Procedure(s): MM tomosynthesis screening BI ?? Accession Number(s): [id number] ? cc: Xuan Mckeon MD ? EXAMINATION: [...] by Urvashi Blanton, DO in OV> ? 06/15/241909 ? DD/ 4 ? TD/TT: 06/06/24919 ? Specialist Physicians: ? Procedure Note Yuri, Cheo - 06/15/2024 Boris [facility] [address] [place], [place] [address] Mammography Report Signed Patient: Alexis Person #: [id number] : 1950cct:[id number] Age/Sex: 74 / FADM Date: 06/06/24 Loc: [facility] Attending Dr: Xuan Mckeon MD Ordering Physician: Xuan Mckeon MDResults: 1Negative Date of Service: 06/06/24Follow Up: 1 Year From Orig inal Mammogram Procedure(s): MM tomosynthesis screening BI Accession Number(s): [id number] cc: Xuan Mckeon MD EXAMINATION: MM SCREENING [...] in OV> 06/15/241909 DD/ 4 TD/TT: 06/06/24919 Specialist Physicians: Xuan Mckeon MD IM BI PROCEDURES Edited Result - Final * FIT DNA/Cologuard Cancer Screening (01/12/2024) Pathologist [facility] Cologuard Cancer Screen Negative Stool Historical Provider HEALTH MAINTENANCE Final Result * Hm Diabetes Eye Exam (02/23/2023) Pathologist [facility] Eye Exam Normal Normal, BIRADS 0 , BIRADS 1 , BIRADS 2, BIRADS 3 , BIRADS 4+ 02/23/2023 Historical Provider HEALTH MAINTENANCE Final Result * HEPATITIS C AB W/REFL TO HCV RNA, QN, PCR (10/23/2020 8:55 AM EST) HEPATITIS C ANTIBODY NON-REACT [facility] NON-REACT [facility] INDEX 0.01 <1.00 [facility] Comment: ?? HCV antibody was non-reactive. There is no laboratory ?? evidence of HCV infection. ?? In most cases, no further action is required. However, if recent HCV exposure is suspected, a test for HCV RNA (test code 46013) is suggested. ?? For additional information please refer to http://education.[employer]/faq/AEO92v3 (This link is being provided for informational/ educational purposes only.) ?? 10/23/2020 8:55 AM EST us uXan Mckeon MD HISTORICAL/NON ORDERABLE LABS Fi nal Result [facility] [address] from Last 3 Months or Most Recently Relevant to Health Maintenance Insurance [facility] [employer] (O D-SNP) [address] [place] [address] [facility] [address] [place] [phone] Care Teams Pattern Changer Relationship Specialty Start Date End Date Xuan Mckeon MD [address] [place] [address] PCP - General Family Medicine 09/20/20 Yariel Schmid, CristóbalD [address] [place] [phone] Pharmacist Internal Medicine 11/23/22
--- OUTSIDE RECORDS SUMMARY | 2025-01-08 13:33 | XMS_ITS | Encounter Summary ---
Author Organization [employer] Address [address] [address] [facility] [facility] [address] [place] [address] Care Team Providers Care Carpenter Helper Maintenance Name Role Phone Xuan Mckeon MD Primary Care Provider [phone] Yariel Schmid PharmD Unavailable [phone] Reason for Visit * Reason Comments Med Refill Encounter Details Date Type Department Care Team ([facility] st Contact Info) Description 10/05/2023 Refill [facility] MEDICINE [address] [place], [place] [phone] Xuan Mckeon MD [address] [place], [place] [phone] Vitamin B12 deficiency Social History Tobacco Use [...] 01/11/2025 10:15 AM EDT Office Visit [facility] MEDICINE [address] [place] [phone] Xuan Mckeon MD [address] [place] [phone] 02/02/2025 11:30 AM EDT Medication Management [facility] [address] [place] [phone] Yariel Schmid PharmD [address] [place] [phone] documented as of this encounter Goals Goal [...] documented as of this encounter Care Teams Carpenter Helper Maintenance Relationship Specialty Start Date End Date Xuan Mckeon MD [address] [place] [phone] PCP - General Family Medicine 09/20/20 Yariel Schmid, PharmD [address] [place] [phone] Pharmacist Internal Medicine 11/23/22 documented as of this encounter
--- OUTSIDE RECORDS SUMMARY | 2025-01-08 13:33 | XMS_ITS | Encounter Summary ---
Author Organization [employer] Address [address] [facility] [address] [place] [address] Care Team Providers Care Center Director Lead Teacher Name Role Phone Xuan Mckeon MD Primary Care Provider [phone] Yariel Schmid PharmD Unavailable [phone] Reason for Visit * Reason Comments Med Refill Encounter Details Date Type Department Care Team ([facility] st Contact Info) Description 09/08/2023 Refill [facility] MEDICINE [address] [place], [place] [phone] Xuan Mckeon MD [address] [place], [place] [phone] Other specified anxiety disorders Social History Tobacco [...] 10:15 AM EDT Office Visit [facility] MEDICINE [address] [place] [phone] Xuan Mckeon MD [address] [place] [phone] 02/02/2025 11:30 AM EDT Medication Management [facility] [address] [place] [phone] Yariel Schmid PharmD [address] [place] [phone] documented as of this encounter Goals Goal [...] documented as of this encounter Care Teams Center Director Lead Teacher Relationship Specialty Start Date End Date Xuan Mckeon MD [address] [place] [phone] PCP - General Family Medicine 09/20/20 Yariel Schmid PharmD [address] [place] [address] [phone] Pharmacist Internal Medicine 11/23/22 documented as of this encounter
--- OUTSIDE RECORDS SUMMARY | 2025-01-08 13:33 | XMS_ITS | Encounter Summary ---
Author Organization [employer] Address [address] [facility] [address] [place] [address] Care Team Providers Care Remelter Name Role Phone Xuan Mckeon MD Primary Care Provider [phone] Yariel Schmid PharmD Unavailable [phone] Reason for Visit * Reason Comments Med Refill Encounter Details Date Type Department Care Team ([facility] st Contact Info) Description 03/06/2024 Refill [facility] [address] [place], [place] [phone] Ofelia kAhtar ANP [address] [place], [place] [phone] Other specified anxiety disorders Social History Tobacco [...] Description 01/11/2025 10:15 AM EDT Office Visit [facility] [address] [place] [phone] Xuan Mckeon MD [address] [place] [phone] 02/02/2025 11:30 AM EDT Medication Management [facility] [address] [place] [phone] Yariel Schmid PharmD [address] [place] [phone] documented as of this encounter Goals Goal [...] documented as of this encounter Care Teams Remelter Relationship Specialty Start Date End Date Xuan Mckeon MD [address] [place] [phone] PCP - General Family Medicine 09/20/20 Yariel Schmid PharmD [address] [place] [phone] Pharmacist Internal Medicine 11/23/22 documented as of this encounter
== END 2025-01-08 12:16 | disposition home or self-care (01) ==
LOC: HO.HKA 11:48
PROVIDERS: PCP Family Medicine; Visit Provider Internal Medicine Hypertension Specialist
DX: I10 Essential (primary) hypertension (principal); D35.02 Benign neoplasm of left adrenal gland
CPT/HCPCS: 99214

== ENCOUNTER → 2025-01-08 11:48 | Outpatient (BNVA) | payer OTHER, SELFPAY | PROVIDERS: PCP Family Medicine; Visit Provider Internal Medicine Hypertension Specialist | DX: I10 Essential (primary) hypertension (principal); D35.02 Benign neoplasm of left adrenal gland; Z79.899 Other long term (current) drug therapy | CPT/HCPCS: 99212 ==

== ENCOUNTER 2025-02-06 08:24 | Outpatient (REF) | payer OTHER, SELFPAY ==
--- OUTSIDE RECORDS SUMMARY | 2025-02-06 08:39 | XMS_ITS | Encounter Summary ---
Author Organization [employer] Address [address] [facility] 7t [place] [address] Care Team Providers Care Intake Rn Name Role Phone Xuan Mckeon MD Primary Care Provider [phone] Yariel Schmid PharmD Unavailable [phone] Reason for Visit * Reason Comments Med Refill Encounter Details Date Type Department Care Team ([facility] st Contact Info) Description 10/05/2023 Refill [facility] [address] [place], [place] [phone] Xuan Mckeon MD [address] [place], [place] [phone] Vitamin B12 deficiency Social History Tobacco Use [...] Care Team (Late st Contact Info) Description 05/04/2025 11:30 AM EDT Medication Management [facility] [address] [place] [address] Yariel Schmid, Leelee [address] [place] [address] documented as of this encounter Goals Goal Patient Goal Type Associated Problems Recent Progress Patient-Stated? Author Blood Pressure < 140/90 Blood Pressure 138/84( 025 11:48 AM EDT) No Yariel Schmid, Leelee documented as of this encounter Visit Diagnoses Diagnosis Vitamin B12 deficiency Other B-complex deficiencies documented in this encounter Additional Health Concerns Assessment Noted Time PHQ-9 Depression Total Score: 4 12/18/19 23 10:48 AM EDT documented as of this encounter Care Teams Intake Rn Relationship Specialty Start Date End Date Xuan Mckeon MD [address] [place] [phone] PCP - General Family Medicine 09/20/20 Yariel Schmid, CristóbalD [address] [place] [address] [phone] Pharmacist Internal Medicine 11/23/22 documented as of this encounter
[2025-02-06 08:48] LABS: Appearance Urine Cloudy; Color Urine Yellow; Glucose Urine UA Negative (Negative); Leukocyte Esterase Urine Moderate (2+) (Negative); Nitrite Urine Positive (Negative); UMIC TRIGGER UA YES; Urine Blood Negative (Negative); Urine Ketones Negative (Negative); Urine Protein Negative (Neg-Trace)
[2025-02-06 08:52] LABS: Bacteria Urine 4+ (None Seen); Hyaline Casts Urine 0-2 /LPF (0-2); RBC Urine 0-2 /HPF (0-2); WBC Urine 21-50 /HPF (0-5)
[2025-02-06 09:08] LABS: Anion Gap 10 (12-20); Blood Urea Nitrogen 19 mg/dL (9-16); Calcium 9.4 mg/dL (8.4-10.2); Carbon Dioxide 31 mmol/L (22-29); Chloride 102 mmol/L (96-108); Estimated Glomerular Filt Rate > 60; Glucose Random 133 mg/dL (60-115); Potassium 4.6 mmol/L (3.3-5.1); Sodium 138 mmol/L (135-145)
== END 2025-02-06 08:25 | disposition home or self-care (01) ==
LOC: HO.LAB 08:24
PROVIDERS: PCP Family Medicine; Visit Provider Internal Medicine Hypertension Specialist
DX: D35.02 Benign neoplasm of left adrenal gland (principal); I10 Essential (primary) hypertension
CPT/HCPCS: 36415; 80048; 81001

== ENCOUNTER 2025-03-08 12:15 | Outpatient (REF) | payer OTHER, SELFPAY ==
--- NOTE | ~2025-03-08 | CT_ITS ---
EXAMINATION: CT ABDOMEN WITHOUT IV CONTRAST HISTORY: D35.02 - Benign neoplasm of left adrenal gland COMPARISON: Comparison is made with prior examinations dated 06/14/2024 and 02/23/2022. TECHNIQUE: CT scan of the abdomen was performed without contrast using standard departmental protocol. Coronal and sagittal reformatted images were generated and reviewed. Oral contrast material was not administered per department protocol. This CT exam was performed with one or more of the following dose reduction techniques: automated exposure control, adjustment of the mA and/or kV according to patient size, use of iterative reconstruction technique. DLP: 293 mGy-cm FINDINGS: LOWER CHEST: The visualized lung bases are clear. There is no pleural effusion. CARDIOVASCULATURE: The heart is normal in size. There is no pericardial effusion. LIVER: The liver is normal in size and contour. Again seen is a 1.4 cm hypodensity in the left lobe which likely represents a cyst or hemangioma. GALLBLADDER / BILE DUCTS: The gallbladder is surgically absent. There is no intra or extrahepatic biliary ductal dilatation. SPLEEN: The spleen is normal in size and has an unremarkable unenhanced appearance. PANCREAS: The pancreas has an unremarkable unenhanced appearance. ADRENAL GLANDS: The right adrenal gland is unremarkable. Again seen is a left adrenal nodule measuring 1.5 cm in size. This measures 8 8 Hathaway density, compatible with an adenoma. KIDNEYS/RETROPERITONEUM: No renal calculi are identified. There are bilateral extrarenal pelves without change. There is no hydronephrosis. LYMPH NODES: No retroperitoneal lymphadenopathy is identified in the abdomen or pelvis. VASCULATURE: The abdominal aorta demonstrates atherosclerotic calcification, but is normal in caliber. MESENTERY/PERITONEUM: No free fluid. No masses. There is no free intraperitoneal gas. STOMACH: The stomach is collapsed, limiting evaluation. SMALL BOWEL: The visualized small bowel is normal in caliber. COLON: The visualized portion of the colon is unremarkable. APPENDIX: Normal. BONES / SOFT TISSUES: There is degenerative disc disease of the spine. CT/CT abdomen wo IV con IMPRESSION: 1.5 cm left adrenal adenoma without change. Electronically signed by: Teddy Corona MD 03/08/2025 01:54 PM EDT
--- OUTSIDE RECORDS SUMMARY | 2025-03-08 12:38 | XMS_ITS | Encounter Summary ---
Author Organization [employer] Address 75 [facility] 7t [place] [address] Care Team Providers Care Printer Assistant Name Role Phone Xuan Mckeon MD Primary Care Provider [phone] Yariel Schmid PharmD Unavailable [phone] Reason for Visit * Reason Comments Med Refill Encounter Details Date Type Department Care Team ([facility] st Contact Info) Description 10/05/2023 Refill [facility] 230 [place], [place] [phone] Xuan Mckeon MD [address] [place], [place] [phone] Vitamin B12 deficiency Social History Tobacco Use [...] Description 05/04/2025 11:30 AM EDT Medication Management [facility] [address] [place] [address] Yariel Schmid, Leelee [address] [place] [address] documented as of this encounter Goals Goal [...] documented as of this encounter Care Teams Printer Assistant Relationship Specialty Start Date End Date Xuan Mckeon MD [address] [place] [phone] PCP - General Family Medicine 09/20/20 Yariel Schmid, CristóbalD [address] [place] [address] [phone] Pharmacist Internal Medicine 11/23/22 documented as of this encounter
--- OUTSIDE RECORDS SUMMARY | 2025-03-08 12:38 | XMS_ITS | Clinical Summary ---
Author Organization [facility] Address [address] [place] [phone] Care Team Providers Care Reinforcing Steel Placer Name Role Phone Unavailable Primary Care Provider [...]
== END 2025-03-08 12:16 | disposition home or self-care (01) ==
LOC: HO.CT 12:15
PROVIDERS: PCP Family Medicine; Visit Provider Internal Medicine Hypertension Specialist
DX: D35.02 Benign neoplasm of left adrenal gland (principal)
CPT/HCPCS: 74150

== ENCOUNTER → 2025-03-08 12:22 | Outpatient (BNV) | payer OTHER, SELFPAY | PROVIDERS: PCP Family Medicine; Visit Provider Radiology Diagnostic Radiology | DX: D35.02 Benign neoplasm of left adrenal gland (principal) | CPT/HCPCS: 74150 ==

== ENCOUNTER 2025-04-02 11:21 | Outpatient (AMB) | payer OTHER, SELFPAY ==
--- NOTE | 2025-04-02 11:23 | HO.NEPHOV ---
Vital Signs 04/02/25 11:24 04/02/25 11:37 Height 5 ft 1 in Weight 171 lb BMI 32.3 BP 148/80 H 140/80 H Blood Pressure Location Rt brachial Rt brachial Position Sitting Sitting Pulse 85 Pulse Source Pulse Oximeter Pulse Oximetry (%) 97 Oxygen Delivery Method Room Air Intake Visit Reasons: FU-Conf Turn Down Attendant Required: Yes Turn Down Attendant Name: [email or web address] [id number] Allergies hydrocodone (HYDROCODONE) Allergy (Unknown, Verified 04/02/25 11:27) UNKNOWN levofloxacin (LEVOFLOXACIN) Allergy (Unknown, Verified 04/02/25 11:27) Rash metronidazole (METRONIDAZOLE) Allergy (Unknown, Verified 04/02/25 11:27) UNK promethazine (PROMETHAZINE) Allergy (Unknown, Verified 04/02/25 11:27) Rash Codeine Allergy (Unknown, Uncoded 12/28/24 01:49) swelling/ itching/ hives dye contrast Allergy (Unknown, Uncoded 12/28/24 01:49) red skin Hydrocodone-Acetaminophen Allergy (Unknown, Uncoded 12/28/24 01:49) rash Medication List - Last Reconciled 04/02/25 by Tate Gracia MD atorvastatin 40 mg PO DAILY cetirizine 10 mg PO DAILY PRN clopidogrel 75 mg PO DAILY cyanocobalamin (vitamin B-12) 500 mcg PO DAILY cyclobenzaprine 10 mg PO TID PRN hydroxyzine pamoate 25 mg PO DAILY PRN lorazepam 1 mg PO BID PRN losartan 100 mg PO DAILY metformin ER 500 mg PO DAILY metoprolol succinate ER 100 mg PO DAILY ondansetron 4 mg PO Q6H PRN pantoprazole (Protonix) 40 mg PO DAILY spironolacton-hydrochlorothiaz 25-25 mg 1 tab PO DAILY tramadol 50 mg PO Q6H PRN HPI Comments Details: Che is a pleasant 74-year-old woman with a history of hypertension requiring 3 antihypertensive agents. She has a left adrenal adenoma. She was seen by Dr. Flores in 2020 for the same issue. As per records ,MRI of the abdomen 03/31/2005 showed: MRI of the abdomen is consistent with 1.5 cm left adrenal cortical adenoma probably nonhyperfunctioning adenoma. CT abdomen from 04/18/2007 revealed: 1.5 cm left adrenal mass. She tells me that initially the adenoma was noted in 1995 in [place]. This size has been holding steady, over the past 25 years. It is unclear if she underwent any biochemical workup. Today she has no new complaints. She has generalized body pain which she attributes to fibromyalgia. No shortness of breath. No palpitations. No unexplained sweating. No weight loss or weight gain. No urinary symptoms. All other systems were reviewed 02/09/2024. She underwent workup as outlined. She is having burning sensation in her epigastric region on and off. She is waiting to see workforce management coordinator 01/08/25 Interpretor service was used Overall she is doing well. No new issues. Seen by cardiology BP is sub optimal 04/02/25 Home BP this morning 135/77 PFSH Medical History Diverticulitis Hypertension Surgical History H/O section Family History Father No problems noted. Mother CVD (cardiovascular disease) Social History Alcohol intake: never Patient Tobacco Use Status: Never used Tobacco Physical Exam Vital Signs: Last Vital Signs Pulse 85 04/02/25 11:24 BP 148/80 H 04/02/25 11:24 Pulse Ox 97 04/02/25 11:24 Oxygen Delivery Method Room Air 04/02/25 11:24 BMI result Body Mass Index 32.3 Const General: comfortable Nutritional Appearance: well nourished Orientation/consciousness: patient oriented x3 HEENT Head: No normal to inspection Mouth: moist mucous membranes Neck Neck: Yes supple and Yes no JVD Resp Auscultation: clear to auscultation bilaterally, no rales and No rub present Cardio Jugular venous distension: no JVD Palpation: no palpable S3 and no palpable S4 Heart sounds: no rubs GI Palpation (GI): Soft to palpation and nontender Percussion: No Fluid wave present General: Yes no CVA tenderness Back/Spine/Pelvis Back: no CVA tenderness Skin General skin exam: no rashes or lesions noted Neuro General: patient oriented x3 Extrem General: Yes no pedal edema and No clubbing Results Reviewed Nephrology Results: Hgb, (12.0-16.0) 14.1 g/dl 12/28/24 WBC, (4.8-10.8) 6.9 X10*3/uL 12/28/24 Plt Count, (160-400) 232 X10*3/uL 12/28/24 Sodium, (135-145) 138 mmol/L 02/06/25 Potassium, (3.3-5.1) 4.6 mmol/L Δ 02/06/25 Chloride, (96-108) 102 mmol/L 02/06/25 Carbon Dioxide, (22-29) 31 mmol/L H 02/06/25 BUN, (9-16) 19 mg/dL H 02/06/25 Creatinine, (0.5-1.4) 0.80 mg/dL 02/06/25 Calcium, (8.4-10.2) 9.4 mg/dL 02/06/25 Urine Protein, (Neg-Trace) Negative mg/dL 02/06/25 Urine Creatinine 161.01 mg/dL 11/08/24 Assessment & Plan Assessment & Plan (1) Hypertension: Code(s): I10 - Essential (primary) hypertension Category: Medical (2) 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 Based on the prior imaging studies it appears that this cyst has been reasonably stable. Biochemical workup - including plasma renin activity, aldosterone, dopamine, total catecholamines, epinephrine and norepinephrine are in the normal range. The blood pressure is Sub optimal. Renal function is stable. She has no significant alkalosis or hypokalemia. Contibue to avoid Chlrothalidone Keep Aldactazide 25/25 QD ( 01/08/25) We will continue to monitor the adrenal adenoma. Initially seen in 2004 on MRI and adenoma measured 1.5 cm Follow-up CT scan was done on 06/24/24 But radiologist has reported as Normal Adrenals' In 2022, it was reported as benign. Follow up CT in 2024 shows 1.5 cm left adrenal adenoma- unchanged from 2021 Overall , remains stable/unchanged over 20 years We discussed importance of weight loss. She should stay on low-sodium diet. No changes were made to medication today. Encouraged to follow up with her workforce management coordinator. Turn Down Attendant service was used. 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
[2025-04-02 11:24] VITALS: BP 148/80; PULSE 85; O2SAT 97; BMI 32.3
[2025-04-02 11:37] VITALS: BP 140/80
--- OUTSIDE RECORDS SUMMARY | 2025-04-02 12:37 | XMS_ITS | Encounter Summary ---
Author Organization [employer] Address 75 [facility] 7t [place] [address] Care Team Providers Care L D Rn Name Role Phone Xuan Mckeon MD Primary Care Provider [phone] Yariel Schmid PharmD Unavailable [phone] Reason for Visit * Reason Comments Med Refill Encounter Details Date Type Department Care Team ([facility] st Contact Info) Description 10/05/2023 Refill [facility] [address] [place], [place] [phone] Xuan Mckeon MD [address] [place], [place] [phone] Vitamin B12 deficiency Social History Tobacco Use [...] Description 05/04/2025 11:30 AM EDT Medication Management [facility] [address] [place] [phone] Yariel Schmid, PharmD [address] [place] [phone] 05/08/2025 10:00 AM EDT Office Visit [facility] [address] [place] [phone] Rodrigo Perez DDS [address] [place] [address] 05/15/2025 10:30 AM EDT Office Visit [facility] [address] [place] [phone] Xuan Mckeon MD [address] [place] [phone] documented as of this encounter Goals Goal Patient Goal Type Associated Problems Recent Progress Patient-Stated? Author Blood Pressure < 140/90 Blood Pressure 138/84( 025 11:48 AM EDT) No Yariel Schmid, PharmD documented as of this encounter Visit Diagnoses Diagnosis Vitamin B12 deficiency Other B-complex deficiencies documented in this encounter Additional Health Concerns Assessment Noted Time PHQ-9 Depression Total Score: 4 12/18/19 23 10:48 AM EDT documented as of this encounter Care Teams L D Rn Relationship Specialty Start Date End Date Xuan Mckeon MD [address] [place], [place] [phone] PCP - General Family Medicine 09/20/20 Yariel Schmid, CristóbalD [address] [place] [address] Pharmacist Internal Medicine 11/23/22 documented as of this encounter
--- OUTSIDE RECORDS SUMMARY | 2025-04-02 12:37 | XMS_ITS | Clinical Summary ---
Author Organization [facility] Address [address] [place] [phone] Care Team Providers Care Security Guard Name Role Phone Unavailable Primary Care Provider [...] Panel) 08/04/2022 Colorectal Cancer Screening: Colonoscopy 08/04/2022 Falls Risk Assessment 08/04/2022 Hepatitis C Screening 08/04/2022 Osteoporosis Screening (Bone Density Screening) 08/04/2022 Social Influencers of Health Screening 08/04/2022 Diabetes: Annual Urine Albumin-Creatinine Ratio (uACR) 08/21/2022 Diabetes: Blood Sugar Control Test (HGBA1C) 08/21/2022 Hypertension/CHF/CAD Annual BMP Blood Test 08/21/2022 DTaP,Tdap,and Td Vaccines (3 - Td or Tdap) 09/25/2023 09/25/2013, 11/05/2001 COVID-19 Vaccine (1 - season) 2024 Depression Screening 09/06/2024 Influenza Vaccine (#1) 2025 5, 07/25/2014, 05/19/2013, Additional history exists HIB [...]
== END 2025-04-02 11:42 | disposition home or self-care (01) ==
LOC: HO.HKA 11:21
PROVIDERS: PCP Family Medicine; Visit Provider Internal Medicine Hypertension Specialist
DX: I10 Essential (primary) hypertension (principal); D35.02 Benign neoplasm of left adrenal gland
CPT/HCPCS: 99214

== ENCOUNTER → 2025-04-02 11:21 | Outpatient (BNVA) | payer OTHER, SELFPAY | PROVIDERS: PCP Family Medicine; Visit Provider Internal Medicine Hypertension Specialist | DX: I10 Essential (primary) hypertension (principal); D35.02 Benign neoplasm of left adrenal gland | CPT/HCPCS: 99212 ==

== ENCOUNTER 2025-04-23 11:08 | Outpatient (AMB) | payer OTHER, SELFPAY ==
--- NOTE | 2025-04-23 11:11 | MHC.OFFVIS ---
Vital Signs 04/23/25 11:15 Height 5 ft 1 in Weight 171 lb 15.369 oz BMI 32.5 BP 140/80 H Blood Pressure Location Lt brachial Position Sitting Pulse 88 Pulse Source Monitor Intake Visit Reasons: 3m follow up Intake Note: 3 mth f/up Cardiac Nurse Specialist Required: Yes Cardiac Nurse Specialist Name: [email or web address] Accompanied by: Self / Same As Patient Allergies hydrocodone (HYDROCODONE) Allergy (Unknown, Verified 04/02/25 11:27) UNKNOWN levofloxacin (LEVOFLOXACIN) Allergy (Unknown, Verified 04/02/25 11:27) Rash metronidazole (METRONIDAZOLE) Allergy (Unknown, Verified 04/02/25 11:27) UNK promethazine (PROMETHAZINE) Allergy (Unknown, Verified 04/02/25 11:27) Rash Codeine Allergy (Unknown, Uncoded 12/28/24 01:49) swelling/ itching/ hives dye contrast Allergy (Unknown, Uncoded 12/28/24 01:49) red skin Hydrocodone-Acetaminophen Allergy (Unknown, Uncoded 12/28/24 01:49) rash Medication List - Last Reconciled 04/23/25 by Hieu Karimi MD atorvastatin 40 mg PO DAILY cetirizine 10 mg PO DAILY PRN clopidogrel 75 mg PO DAILY cyanocobalamin (vitamin B-12) 500 mcg PO DAILY cyclobenzaprine 10 mg PO TID PRN hydroxyzine pamoate 25 mg PO DAILY PRN lorazepam 1 mg PO BID PRN losartan 100 mg PO DAILY metformin ER 500 mg PO DAILY metoprolol succinate ER 100 mg PO DAILY ondansetron 4 mg PO Q6H PRN pantoprazole (Protonix) 40 mg PO DAILY spironolacton-hydrochlorothiaz 25-25 mg 1 tab PO DAILY tramadol 50 mg PO Q6H PRN HPI Comments Details: Pleasant 74-year-old lady here for follow-up. She is accompanied by her ASP NET C DEVELOPER who acted as the business office manager. Patient was originally seen for dyspnea and palpitations. She underwent echocardiography which showed grade 1 diastolic dysfunction but did not show any significant valvular issues or LV or RV dysfunction. She underwent cardiac event monitoring which was unremarkable and did not show any significant arrhythmia. She returns for follow-up today. She was in the emergency department on 07/04/2022 with left-sided paresthesias as well as numbness of her tongue. She was unable to speak. She was sent home with a diagnosis of fibromyalgia and paresthesia. She is saying she has been doing well since then. She has been taking baby aspirin before and no changes in medications were made. Denying any chest discomfort or palpitations. Blood pressure control is good currently. Her aspirin was stopped and she was started on Plavix. Today she returns for follow-up and is complaining of chest discomfort which has been happening for the last few weeks. This happens when she does activities and improves that she rest. Pattern is concerning for angina. Her blood pressure control is good. Do not have any ischemic evaluation recently. 06/23/23: She returns for follow-up. She is denying any chest discomfort. She previously had Lexiscan performed because she could not exercise on treadmill. Lexiscan showed probably normal perfusion with suspected diaphragmatic attenuation artifact causing inferolateral perfusion defect. This was felt to be more likely to be artifact than ischemia. As mentioned she is denying any symptoms on follow-up. Her blood pressure is elevated and had a discussion with her that we should titrate medications or add amlodipine 2.5 mg once a day. She is saying that her blood pressure is elevated due to anxiety and whenever she gets it checked at her pharmacy does normal. I had long discussion with her and we have decided to keep a log of blood pressure for 2 weeks and bring it on follow-up next time. 04/10/2024: She is here for follow-up. Blood pressure is well controlled on follow-up. She is getting some atypical chest pains. She has not been physically active. Taking medications regularly. 12/06/2024: She is here for follow-up. Blood pressure is well controlled. She is denying any chest pressure. Left-sided breast tenderness and pain. Previously was getting some pressure-like feeling but denying that now. She has some dyspnea with exertion but has not been physically active more recently. I have advised her to start exercising regularly as the weather is changing. It 182: She is here for follow-up. She is denying any chest discomfort but does get some dyspnea with activities. She is complaining of numbness in her left hand as well as toes on both feet. Blood pressure is elevated. [facility] Medical History Diverticulitis Hypertension Surgical History H/O section Family History Father No problems noted. Mother CVD (cardiovascular disease) Social History Alcohol intake: never Patient Tobacco Use Status: Never used Tobacco Review of Systems Const Denies chills, Denies fatigue, Denies fever(s), Denies frequent falls, Denies weakness, Denies weight gain and Denies weight loss ENT Denies dizziness Card Denies chest pain, Denies leg edema, Denies lightheadedness, Denies palpitations, Denies dyspnea and Denies dyspnea on exertion Resp Denies cough, Denies dyspnea and Denies dyspnea on exertion GI Denies hematochezia Musc Denies abnormal gait, Denies muscle weakness, Denies numbness, Denies radiating pain into limb and Denies tingling Neuro Denies abnormal gait, Denies dizziness, Denies frequent falls, Denies numbness, Denies tingling and Denies weakness Endo Denies fatigue and Denies palpitations Physical Exam Vital Signs: Last Vital Signs Pulse 88 04/23/25 11:15 BP 140/80 H 04/23/25 11:15 BMI result Body Mass Index 32.5 GENERAL APPEARANCE: in no acute distress, well developed, well nourished. NECK/THYROID: no carotid bruit, no jugular venous distention. SKIN: normal, no rashes. HEART: no murmurs, regular rate and rhythm, S1, S2 normal. LUNGS: clear to auscultation bilaterally. ABDOMEN: normal, bowel sounds present, soft, nontender, nondistended. EXTREMITIES: no edema. PERIPHERAL PULSES: equal. NEUROLOGIC: nonfocal, motor strength normal upper and lower extremities, sensory exam intact. PSYCH: mood/affect full range. Office Procedures EKG Details: Sinus rhythm 88 beats per minute, low voltage, poor R-wave progression, QTC 467 milliseconds. [id number], Complete Assessment & Plan Assessment & Plan (1) Hypertension: Code(s): I10 - Essential (primary) hypertension Category: Medical (2) SOB (shortness of breath): Code(s): R06.02 - Shortness of breath Category: Medical Plan Pleasant 74 year female who is here for follow-up. She had abnormal Lexiscan in the past showing inferolateral perfusion defect. She has not complained of further chest discomfort since then. Off and on she gets some dyspnea with activities. Clinically not in heart failure. Blood pressure is elevated and I think it needs better control. Would add amlodipine 5 mg daily. She will continue her losartan and metoprolol along with spironolactone and hydrochlorothiazide as before. She is complaining of numbness in her left hand at nighttime. She is also complaining of bilateral feet paresthesias. She wishes to see Neurology and we will refer her. She will see us back in few months. Thank you for allowing me to participate in the care of your patient. Please feel free to contact me if you have any questions. Orders: Referrals Neurology Referral R20.0 - Anesthesia of skin, R20.2 - Paresthesia of skin Medications: New amlodipine 5 mg PO DAILY 60 tabs 3RF I10 - Essential (primary) hypertension Coding Level of Care Code Est Pt Level 4 (99550) Diagnoses Hypertension I10 SOB (shortness of breath) R06.02 CPT Codes EKG - CPT: 61415-[id number], Complete ([id number])
[2025-04-23 11:15] VITALS: BP 140/80; PULSE 88; BMI 32.5
--- OUTSIDE RECORDS SUMMARY | 2025-04-23 12:20 | XMS_ITS | Clinical Summary ---
Author Organization [facility] Address [address] [place] [phone] Care Team Providers Care Culinary Instructor Name Role Phone Unavailable Primary Care Provider [...]
--- OUTSIDE RECORDS SUMMARY | 2025-04-23 12:20 | XMS_ITS | Encounter Summary ---
Author Organization [employer] Address 75 [facility] 7t [place] [address] Care Team Providers Care Electronics Engineering Professor Name Role Phone Xuan Mckeon MD Primary Care Provider [phone] Yariel Schmid PharmD Unavailable [phone] Reason for Visit * Reason Comments Med Refill Encounter Details Date Type Department Care Team ([facility] st Contact Info) Description 10/05/2023 Refill [facility] MEDICINE [address] [place], [place] [phone] Xuan Mckeon MD [address] [place], [place] [phone] Vitamin B12 deficiency Social History Tobacco Use [...] Care Team (Late st Contact Info) Description 05/08/2025 10:00 AM EDT Office Visit [facility] ADULT DENTAL [address] [place] [phone] Rodrigo Perez DDS [address] [place] [address] 05/09/2025 10:00 AM EDT Medication Management [facility] MEDICINE [address] [place] [address] Yariel Schmid, PharmD [address] [place] [address] 05/15/2025 10:30 AM EDT Office Visit [facility] MEDICINE [address] [place] [address] Xuan Mckeon MD [address] [place] [address] documented as of this encounter Goals Goal [...] documented as of this encounter Care Teams Electronics Engineering Professor Relationship Specialty Start Date End Date Xuan Mckeon MD [address] [place], [place] [phone] PCP - General Family Medicine 09/20/20 Yariel Schmid, CristóbalD [address] [place] [address] Pharmacist Internal Medicine 11/23/22 documented as of this encounter
== END 2025-04-23 12:03 | disposition home or self-care (01) ==
LOC: HO.HCS 11:09
PROVIDERS: PCP Family Medicine; Visit Provider Internal Medicine Cardiovascular Disease
DX: I10 Essential (primary) hypertension (principal); R06.02 Shortness of breath
CPT/HCPCS: 93010; 99214

== ENCOUNTER → 2025-04-23 11:08 | Outpatient (BNVA) | payer OTHER, SELFPAY | PROVIDERS: PCP Family Medicine; Visit Provider Internal Medicine Cardiovascular Disease | DX: I10 Essential (primary) hypertension (principal); R06.02 Shortness of breath; R20.0 Anesthesia of skin; Z79.899 Other long term (current) drug therapy | CPT/HCPCS: 93005; 99212 ==

== ENCOUNTER 2025-04-25 13:51 | Outpatient (AMB) | payer OTHER, SELFPAY ==
--- NOTE | 2025-04-25 14:03 | MHC.OFFVIS ---
Vital Signs 04/25/25 14:04 Height 5 ft 1 in Weight 172 lb BMI 32.5 BP 138/84 Blood Pressure Location Rt brachial Position Sitting Pulse 71 Pulse Source Pulse Oximeter Pulse Oximetry (%) 97 Oxygen Delivery Method Room Air Intake Visit Reasons: INP-Anesthesia of skin Intake Note: Anesthesia of skin Aircraft Fueler Required: Yes Accompanied by: SPECIAL CRIMES INVESTIGATOR Allergies hydrocodone (HYDROCODONE) Allergy (Unknown, Verified 04/25/25 14:12) UNKNOWN levofloxacin (LEVOFLOXACIN) Allergy (Unknown, Verified 04/25/25 14:12) Rash metronidazole (METRONIDAZOLE) Allergy (Unknown, Verified 04/25/25 14:12) UNK promethazine (PROMETHAZINE) Allergy (Unknown, Verified 04/25/25 14:12) Rash Codeine Allergy (Unknown, Uncoded 12/28/24 01:49) swelling/ itching/ hives dye contrast Allergy (Unknown, Uncoded 12/28/24 01:49) red skin Hydrocodone-Acetaminophen Allergy (Unknown, Uncoded 12/28/24 01:49) rash HPI Comments Details: Bankruptcy Legal Assistant-[id number] Kavita 74y/o female comes for evaluation of pain and numbness in her hands. Symptom son her left hand is worse than Right. The symptoms started about 1 week ago, she woke up with left hand pain and numbness . The episodes are intermittent and wakes up ( 1-2 times )in the middle of the night with numbness and pain. she also has the symptoms in her right hand intermittently. sometimes she feels like her hand is weak She has neck pain and has stiffness. [facility] Medical History Diverticulitis Hypertension Surgical History H/O section Family History Father No problems noted. Mother CVD (cardiovascular disease) Social History Alcohol intake: never Patient Tobacco Use Status: Never used Tobacco Physical Exam Vital Signs: Last Vital Signs Pulse 71 04/25/25 14:04 BP 138/84 04/25/25 14:04 Pulse Ox 97 04/25/25 14:04 Oxygen Delivery Method Room Air 04/25/25 14:04 BMI result Body Mass Index 32.5 Const General: cooperative, healthy appearing, comfortable and no acute distress Nutritional Appearance: overweight Orientation/consciousness: patient oriented x3 Eyes Pupils: Equal, round and reactive pupils present Neuro General: patient oriented x3, tone normal, moves all extremities and no focal motor deficits Cranial nerves: Yes Equal, round and reactive pupils present, Yes Bilaterally intact EOM present, Yes Nystagmus not present, Yes Normal facial strength present, Yes Midline tongue present, Yes Symmetric palate elevation present and Yes Ability to bilaterally elevate shoulders present Cognition (Neuro): normal cognition Gait exam (Neuro): Antalgic gait present Motor exam (neuro): 5/5 motor strength present throughout and Normal motor muscle tone present throughout Deep tendon reflexes (DTR's): Right triceps reflex intensity grade: 1+, Left triceps reflex intensity grade: 1+, Rt Biceps (C5, C6): 1+, Left biceps reflex intensity grade: 1+, Right brachioradialis reflex intensity grade: 1+, Left brachioradialis reflex intensity grade: 1+, Right patellar reflex intensity grade: 2+ and Left patellar reflex intensity grade: 2+ Coordination: [id number] test normal Assessment & Plan Assessment & Plan (1) Numbness and tingling in both hands: Comment: likely carpal tunnel Code(s): R20.0 - Anesthesia of skin; R20.2 - Paresthesia of skin Category: Medical Plan EMG NCS Left UE Wrist splint - to be worn at night and daytime - as needed . Orders: Orders NE electromyogram (EMG) Today R20.0 - Anesthesia of skin, R20.2 - Paresthesia of skin NE nerve conduction velocity Today R20.0 - Anesthesia of skin, R20.2 - Paresthesia of skin Medications: New [left wrist splint] As directed 1 ea 0RF G56.02 - Carpal tunnel syndrome, left upper limb Coding Level of Care Code New Pt Level 4 (46432) Diagnoses Numbness and tingling in both hands R20.0; R20.2
[2025-04-25 14:04] VITALS: BP 138/84; PULSE 71; O2SAT 97; BMI 32.5
--- OUTSIDE RECORDS SUMMARY | 2025-04-25 14:48 | XMS_ITS | Clinical Summary ---
Author Organization [facility] Address [id number] [place] [phone] Care Team Providers Care Olive Packer Name Role Phone Unavailable Primary Care Provider [...]
--- OUTSIDE RECORDS SUMMARY | 2025-04-25 14:48 | XMS_ITS | Encounter Summary ---
Author Organization [employer] Address [address] [facility] [address] 7t [place] [address] Care Team Providers Care Manager Technical Name Role Phone Xuan Mckeon MD Primary Care Provider [phone] Yariel Schmid PharmD Unavailable [phone] Reason for Visit * Reason Comments Med Refill Encounter Details Date Type Department Care Team ([facility] st Contact Info) Description 10/05/2023 Refill [facility] MEDICINE [address] [place], [place] [phone] Xuan Mckeon MD [address] [place], [place] [phone] Vitamin B12 deficiency Social History Tobacco Use [...] Description 05/08/2025 10:00 AM EDT Office Visit [facility] ADULT DENTAL [address] [place] [address] Rodrigo Perez DDS [address] [place] [address] 05/09/2025 10:00 AM EDT Medication Management [facility] MEDICINE [address] [place] [address] Yariel Schmid, PharmD [address] [place] [address] 05/15/2025 10:30 AM EDT Office Visit [facility] MEDICINE [address] [place] [address] Xuan Mckeon MD [address] [place] [address] documented as of this encounter Goals Goal [...] documented as of this encounter Care Teams Manager Technical Relationship Specialty Start Date End Date Xuan Mckeon MD [address] [place], [place] [phone] PCP - General Family Medicine 09/20/20 Yariel Schmid, CristóbalD [address] [place] [address] Pharmacist Internal Medicine 11/23/22 documented as of this encounter
== END 2025-04-25 15:06 | disposition home or self-care (01) ==
LOC: HO.HSMS 13:51
PROVIDERS: PCP Family Medicine; Visit Provider Psychiatry & Neurology Neurology
DX: R20.0 Anesthesia of skin (principal); R20.2 Paresthesia of skin
CPT/HCPCS: 99204

== ENCOUNTER → 2025-04-25 13:51 | Outpatient (BNVA) | payer OTHER, SELFPAY | PROVIDERS: PCP Family Medicine; Visit Provider Psychiatry & Neurology Neurology | DX: R20.0 Anesthesia of skin (principal); R20.2 Paresthesia of skin | CPT/HCPCS: 99202 ==

== ENCOUNTER 2025-05-08 23:52 | Emergency (ER) | payer OTHER, SELFPAY ==
--- NOTE | ~2025-05-08 | XR_ITS ---
CLINICAL HISTORY: dyspnea EXAM: One view chest x-ray COMPARISON: None FINDINGS: Normal cardiac, mediastinal, and hilar contours. Normal heart size. No pleural effusion or pneumothorax. Lungs are clear. No acute bone finding. IMPRESSION: 1. No acute cardiopulmonary process demonstrated. This document has been electronically signed by: Seth Greco MD on 05/09/2025 01:13:18
[2025-05-09 00:02] VITALS: BP 129/61; BP 150/80; PULSE 87; PULSE 99; RESP 22; TEMP 36.7; O2SAT 97; O2SAT 99; BMI 33.3
--- NOTE | 2025-05-09 00:10 | ECG_ITS ---
Test Reason : SOB Blood Pressure : */* mmHG Vent. Rate : 87 BPM Atrial Rate : 87 BPM P-R Int : 160 ms QRS Dur : 92 ms QT Int : 370 ms P-R-T Axes : 49 11 45 degrees QTcB Int : 445 ms Normal sinus rhythm Normal ECG When compared with ECG of 28-Dec-2024 01:57, Nonspecific T wave abnormality has replaced inverted T waves in Inferior leads Referred By: Generic ED Physician Electronically Signed By: Hieu Karimi
[2025-05-09 00:22] VITALS: BP 129/61; PULSE 92; RESP 17; TEMP 36.7; O2SAT 95
[2025-05-09 00:43] LABS: Hematocrit 33.0 % (37.0-47.0); Hemoglobin 11.8 g/dl (12.0-16.0); Imm Gran Abs Auto 0.03 X10*3/uL (0.00-0.03); Imm Gran Pct Auto 0.3 % (0.0-0.4); Lymphocytes Absolute Auto 1.2 X10*3/uL (1.2-4.9); MANUAL DIFF FLAG NO; Mean Corpuscular HGB Conc 35.8 g/dl (31.0-35.0); Mean Corpuscular Hemoglobin 32.1 pg (27.0-33.0); Mean Corpuscular Volume 89.7 fL (80.0-98.0); NRBC Abs Auto 0.000 X10*3/uL (0.0-0.012); NRBC Pct Auto 0.0 /100WBC (0.0-0.2); Platelet Count 215 X10*3/uL (160-400); Red Blood Count 3.68 X10*6/uL (4.20-5.50); White Blood Count 9.7 X10*3/uL (4.8-10.8)
[2025-05-09 00:56] LABS: Alanine Aminotransferase 22 U/L (0-31); Albumin Level 4.3 g/dL (3.5-5.0); Alkaline Phosphatase 50 U/L (39-117); Anion Gap 13 (12-20); Aspartate Amino Transferase 21 U/L (5-31); Blood Urea Nitrogen 19 mg/dL (9-16); Calcium 8.9 mg/dL (8.4-10.2); Carbon Dioxide 25 mmol/L (22-29); Chloride 102 mmol/L (96-108); Creatinine Clr Calc Pharmacy 53.2; Estimated Glomerular Filt Rate > 60; Potassium 4.3 mmol/L (3.3-5.1); Sodium 136 mmol/L (135-145); Total Protein 6.4 g/dL (6.5-8.0)
--- OUTSIDE RECORDS SUMMARY | 2025-05-09 01:02 | XMS_ITS | Encounter Summary ---
Author Organization [employer] Address 75 [facility] 7t [place] [address] Care Team Providers Care Gandy Dancer Name Role Phone Xuan Mckeon MD Primary Care Provider [phone] Yariel Schmid PharmD Unavailable [phone] Reason for Visit * Reason Comments Med Refill Encounter Details Date Type Department Care Team ([facility] st Contact Info) Description 10/05/2023 Refill [facility] MEDICINE 230 [place], [place] [phone] Xuan Mckeon MD 230 [place], [place] [phone] Vitamin B12 deficiency Social History Tobacco Use [...] Care Team (Late st Contact Info) Description 05/09/2025 10:00 AM EDT Medication Management [facility] MEDICINE [address] [place] [phone] Yariel Schmid, PharmD [address] [place] [address] 05/15/2025 10:30 AM EDT Office Visit [facility] MEDICINE [address] [place] [address] Xuan Mckeon MD [address] [place] [address] documented as of this encounter Goals Goal [...] documented as of this encounter Care Teams Gandy Dancer Relationship Specialty Start Date End Date Xuan Mckeon MD [address] [place] [address] PCP - General Family Medicine 09/20/20 Yariel Schmid, PharmD [address] [place] [address] Pharmacist Internal Medicine 11/23/22 documented as of this encounter
[2025-05-09 01:03] LABS: Troponin-I High Sensitivity 14.7 ng/L (<3.5-17.0)
--- OUTSIDE RECORDS SUMMARY | 2025-05-09 01:04 | XMS_ITS | Encounter Summary ---
Author Organization [employer] Address [address] [facility] 7t [place] [address] Care Team Providers Care Piece Maker Name Role Phone Xuan Mckeon MD Primary Care Provider [phone] Yariel Schmid PharmD Unavailable [phone] Reason for Visit * Reason Comments Med Refill Encounter Details Date Type Department Care Team ([facility] Contact Info) Description 10/06/2022 Refill [facility] CHC MED & PEDS [address] [place], [place] [phone] Ofelia Akhtar ANP 230 [place] [address] Other specified anxiety disorders Social History Tobacco [...] Upcoming Encounters Date Type Department Care Team ([facility] Contact Info) Description 05/09/2025 10:00 AM EDT Medication Management [facility] MEDICINE 230 [place], [place] [phone] Yariel Schmid, PharmD 230 [place] [address] 05/15/2025 10:30 AM EDT Office Visit [facility] MEDICINE [address] [place], [place] [phone] Xuan Mckeon MD [address] [place], [place] [phone] documented as of this encounter Visit Diagnoses Diagnosis Other specified anxiety disorders documented in this encounter Care Teams Piece Maker Relationship Specialty Start Date End Date Xuan Mckeon MD [address] [place] [address] [phone] PCP - General Family Medicine 09/20/20 Yariel Schmid, PharmD [address] [place] [address] [phone] Pharmacist Internal Medicine 11/23/22 documented as of this encounter
--- OUTSIDE RECORDS SUMMARY | 2025-05-09 01:04 | XMS_ITS | Encounter Summary ---
Author Organization [employer] Address [address] [facility] 7t [place] [address] Care Team Providers Care Manager Video Name Role Phone Xuan Mckeon MD Primary Care Provider [phone] Yariel Schmid PharmD Unavailable [phone] Encounter Details Date Type Department Care Team ([facility] st Contact Info) Description 10/22/2023 Orders Only [facility] MEDICINE [address] [place], [place] [phone] Xuan Mckeon MD 230 [place], [place] [phone] Social History Tobacco Use Types Packs/Day Years [...] Description 05/09/2025 10:00 AM EDT Medication Management [facility] MEDICINE [address] [place] [address] Yariel Schmid PharmD [address] [place] [address] 05/15/2025 10:30 AM EDT Office Visit [facility] MEDICINE [address] [place] [address] Xuan Mckeon MD [address] [place] [address] documented as of this encounter Goals Goal Patient Goal Type Associated Problems Recent Progress Patient-Stated? Author Blood Pressure < 140/90 Blood Pressure 138/84( 025 11:48 AM EDT) No Yariel Schmid PharmD documented as of this encounter Visit Diagnoses Not on filedocumented in this encounter Additional Health Concerns Assessment Noted Time PHQ-9 Depression Total Score: 4 12/18/19 23 10:48 AM EDT documented as of this encounter Care Teams Manager Video Relationship Specialty Start Date End Date Xuan Mckeon MD [address] [place] [address] PCP - General Family Medicine 09/20/20 Yariel Schmid PharmD [address] [place] [address] Pharmacist Internal Medicine 11/23/22 documented as of this encounter
--- OUTSIDE RECORDS SUMMARY | 2025-05-09 01:05 | XMS_ITS | Encounter Summary ---
Author Organization [employer] Address 75 [facility] 7t [place] [address] Care Team Providers Care Sorting Livestock Worker Name Role Phone Xuan Mckeon MD Primary Care Provider [phone] Yariel Schmid PharmD Unavailable [phone] Reason for Visit * Reason Comments Med Refill Encounter Details Date Type Department Care Team ([facility] st Contact Info) Description 09/08/2023 Refill [facility] MEDICINE 230 [place], [place] [phone] Xuan Mckeon MD 230 [place], [place] [phone] Other specified anxiety disorders Social History Tobacco [...] Description 05/09/2025 10:00 AM EDT Medication Management [facility] MEDICINE [address] [place] [phone] Yariel Schmid PharmD [address] [place] [address] 05/15/2025 10:30 AM EDT Office Visit [facility] MEDICINE [address] [place] [address] Xuan Mckeon MD [address] [place] [address] documented as of this encounter Goals Goal [...] documented as of this encounter Care Teams Sorting Livestock Worker Relationship Specialty Start Date End Date Xuan Mckeon MD [address] [place] [address] PCP - General Family Medicine 09/20/20 Yariel Schmid PharmD [address] [place] [address] Pharmacist Internal Medicine 11/23/22 documented as of this encounter
--- OUTSIDE RECORDS SUMMARY | 2025-05-09 01:05 | XMS_ITS | Encounter Summary ---
Author Organization [employer] Address [address] [facility] [address] 7t [place] [address] Care Team Providers Care Goat Herder Name Role Phone Xuan Mckeon MD Primary Care Provider [phone] Yariel Schmid PharmD Unavailable [phone] Encounter Details Date Type Department Care Team ([facility] st Contact Info) Description 09/20/2024 Orders Only [facility] MEDICINE 230 [place], [place] [phone] Xuan Mckeon MD [address] [place], [place] [phone] Left lower quadrant abdominal pain (Primary Dx); [...] Description 05/09/2025 10:00 AM EDT Medication Management [facility] MEDICINE [address] [place] [address] Yariel Schmid, PharmD [address] [place] [address] 05/15/2025 10:30 AM EDT Office Visit [facility] MEDICINE [address] [place] [address] Xuan Mckeon MD [address] [place] [address] documented as of this encounter Goals Goal Patient Goal Type Associated Problems Recent Progress Patient-Stated? Author Blood Pressure < 140/90 Blood Pressure 138/84( 025 11:48 AM EDT) No Yariel Schmid, PharmD documented as of this encounter Procedures Procedure [...] Sedimentation Rate 25(H) 0 - 20 MM/HR [facility] Comment:Patients with polycy themia and many hemoglobin abnormalitiesmay have depressed sed rates whereas patients with anemiamay have elevated sed rates. Blood Venous blood specimen / Unknown 09/21/2024 9:16 AM EST 09/21/2024 11:12 AM EST Xuan Mckeon MD LAB BLOOD ORDERABLES Final Resul t Performing Organization Address [facility]/ZIP Co de Phone Number [facility] [address] [place] [phone] * (ABNORMAL) C-reactive Protein (09/21/2024 9:16 AM EST) Pathologist [facility] C Reactive Protein 0.96(H) < or = 0.50 mg/dL [facility] Blood Venous blood specimen / Unknown 09/21/2024 9:16 AM EST 09/21/2024 11:12 AM EST Xuan Mckeon MD LAB BLOOD ORDERABLES Final Resul t [facility] [address] [place] [phone] * (ABNORMAL) CBC auto differential (09/21/2024 9:16 AM EST) White Blood Count 6.2 4.8 - 10.8 X10*3/uL [facility] Red Blood Count 3.99(L) 4.20 - 5.50 X10*6/uL [facility] Hemoglobin 12.4 12.0 - 16.0 g/dl [facility] Hematocrit 36.3(L) 37.0 - 47.0 % [facility] Mean Corpuscular Volume 91.0 80.0 - 98.0 fL [facility] Mean Corpuscular Hemoglobin 31.1 27.0 - 33.0 pg [facility] Mean Corpuscular HGB Conc 34.2 31.0 - 35.0 g/dl [facility] Red Cell Distribution Width 12.5 11.0 - 16.0 % [facility] Platelet Count 288 160 - 400 X10*3/uL [facility] Mean Platelet Volume 10.5 9.4 - 12.3 fL [facility] Neutrophils Percent Auto 70.5 45 - 73 % [facility] Imm Gran Pct Auto 0.3 0.0 - 0.4 % [facility] Lymphocytes Percent Auto 20.0 20 - 40 % [facility] Monocytes Percent Auto 7.1 2 - 11 % [facility] Eosinophils Percent Auto 1.6 0 - 4 % [facility] Basophils Percent Auto 0.5 0 - 2 % [facility] NRBC Pct Auto 0.0 0.0 - 0.2 /100WBC [facility] Neutrophils Absolute Auto 4.3 2.0 - 8.3 x10*3/uL [facility] Imm Gran Abs Auto 0.02 0.00 - 0.03 X10*3/uL [facility] Lymphocytes Absolute Auto 1.2 1.2 - 4.9 X10*3/uL [facility] Monocytes Absolute Auto 0.4 0.1 - 1.2 X10*3/uL [facility] Eosinophils Absolute Auto 0.1 0.0 - 0.4 X10*3/uL [facility] Basophils Absolute Auto 0.0 0.0 - 0.2 X10*3/uL [facility] NRBC Abs Auto 0.000 0.0 - 0.012 X10*3/uL [facility] Blood Venous blood specimen / Unknown 09/21/2024 9:16 AM EST 09/21/2024 11:12 AM EST Xuan Mckeon MD LAB BLOOD ORDERABLES Final Resul t [facility] [address] [place] [phone] documented in this encounter Visit Diagnoses Diagnosis Left lower quadrant abdominal pain- Primary Diverticulitis Diverticulitis of colon (without mention of hemorrhage) documented in this encounter Additional Health Concerns Assessment Noted Time PHQ-9 Depression Total Score: 11 024 10:30 AM EDT documented as of this encounter Care Teams Goat Herder Relationship Specialty Start Date End Date Xuan Mckeon MD [address] [place] [address] PCP - General Family Medicine 09/20/20 Yariel Schmid, CristóbalD [address] [place] [address] Pharmacist Internal Medicine 11/23/22 documented as of this encounter
--- OUTSIDE RECORDS SUMMARY | 2025-05-09 01:05 | XMS_ITS | Encounter Summary ---
Author Organization [employer] Address 75 [facility] 7t [place] [address] Care Team Providers Care Production Assembler Name Role Phone Xuan Mckeon MD Primary Care Provider [phone] Yariel Schmid PharmD Unavailable [phone] Reason for Visit * Reason Comments Med Refill Encounter Details Date Type Department Care Team ([facility] st Contact Info) Description 10/05/2023 Refill [facility] MEDICINE 230 [place], [place] [phone] Xuan Mckeon MD 230 [place], [place] [phone] Vitamin B12 deficiency Social History Tobacco Use [...] Description 05/09/2025 10:00 AM EDT Medication Management [facility] MEDICINE [address] [place] [address] Yariel Schmid, PharmD [address] [place] [address] 05/15/2025 10:30 AM EDT Office Visit [facility] MEDICINE [address] [place] [address] Xuan Mckeon MD [address] [place] [address] documented as of this encounter Goals Goal [...] documented as of this encounter Care Teams Production Assembler Relationship Specialty Start Date End Date Xuan Mckeon MD [address] [place] [address] PCP - General Family Medicine 09/20/20 Yariel Schmid, PharmD [address] [place] [address] Pharmacist Internal Medicine 11/23/22 documented as of this encounter
--- OUTSIDE RECORDS SUMMARY | 2025-05-09 01:05 | XMS_ITS | Encounter Summary ---
Author Organization [employer] Address 75 [facility] 7t [place] [address] Care Team Providers Care Fish Bin Tender Name Role Phone Xuan Mckeon MD Primary Care Provider [phone] Yariel Schmid PharmD Unavailable [phone] Encounter Details Date Type Department Care Team (Late st Contact Info) Description 09/23/2022 Orders Only [facility] CHC MED & PEDS [address] [place] [address] Shannon Rich LPN Social History Tobacco Use [...] Description 05/09/2025 10:00 AM EDT Medication Management [facility] MEDICINE [address] [place] [phone] Yariel Schmid, PharmD [address] [place], [place] [phone] 05/15/2025 10:30 AM EDT Office Visit [facility] MEDICINE [address] [place] [address] Xuan Mckeon MD [address] [place], [place] [phone] documented as of this encounter Visit Diagnoses Not on filedocumented in this encounter Care Teams Fish Bin Tender Relationship Specialty Start Date End Date Xuan Mckeon MD [address] [place], [place] [phone] PCP - General Family Medicine 09/20/20 Yariel Schmid PharmD [address] [place] [address] Pharmacist Internal Medicine 11/23/22 documented as of this encounter
--- OUTSIDE RECORDS SUMMARY | 2025-05-09 01:05 | XMS_ITS | Encounter Summary ---
Author Organization [employer] [facility] Address 75 [facility] 7t [place] [address] Care Team Providers Care Travel Registered Nurse Oncology Name Role Phone Xuan Mckeon MD Primary Care Provider [phone] Yariel Schmid PharmD Unavailable [phone] Encounter Details Date Type Department Care Team (Latest Contact Info) Description 01/23/2022 Abstract [facility] CONVERSIONS Dental, Provider, DDS Social History [...] Care Team ( st Contact Info) Description 05/09/2025 10:00 AM EDT Medication Management [facility] MEDICINE [address] [place] [phone] Yariel Schmid, PharmD 230 [place] [address] 05/15/2025 10:30 AM EDT Office Visit [facility] MEDICINE [address] [place] [address] Xuan Mckeon MD [address] [place] [address] documented as of this encounter Visit Diagnoses Not on filedocumented in this encounter Care Teams Travel Registered Nurse Oncology Relationship Specialty Start Date End Date Xuan Mckeon MD [address] [place] [address] PCP - General Family Medicine 09/20/20 Yariel Schmid, CristóbalD [address] [place] [address] Pharmacist Internal Medicine 11/23/22 documented as of this encounter
--- OUTSIDE RECORDS SUMMARY | 2025-05-09 01:06 | XMS_ITS | Clinical Summary ---
Author Organization [facility] Address [address] [facility] [address] [place] [address] Care Team Providers Care Ash Pit Worker Name Role Phone Xuan Mckeon MD Primary Care Provider [phone] Yariel Schmid PharmD Unavailable [phone] Allergies Active Allergy Reactions Criticality Noted Date [...] complication, without long-term current use of insulin ([facility]) USE TWICE DAILY 100 each 11 10/18/19 24 Active metFORMIN XR (Glucophage-XR) 500 MG 24 hr tablet TAKE 1 TABLET BY MOUTH EVERY MORNING 90 tablet 3 06/05/20 24 Active metoprolol succinate XL (Toprol XL) 100 MG 24 hr tabletIndication s:Primary hypertension Take 1 tablet by mouth once daily at bedtime 90 tablet 3 06/28/20 24 Active fexofenadine (Tanisha) 180 MG tabletIndication s:Urticaria TAKE 1 TABLET BY MOUTH EVERY DAY NEEDED FOR ALLERGIES 90 tablet 07/06/20 24 Active FREESTYLE LITE test stripIndications :Type 2 diabetes mellitus without complication, without long-term current use of insulin ([facility]) TEST BLOOD SUGAR TWICE DAILY 100 strip 11 08/29/20 24 Active TRUEplus Lancets 33G misc TEST BLOOD SUGAR TWICE DAILY 100 each 11 09/15/19 25 Active cyanocobalamin (Vitamin B-12) 500 MCG tabletIndication s:Vitamin B12 deficiency TAKE 1 TABLET BY MOUTH EVERY MORNING 90 tablet 3 09/26/19 25 Active atorvastatin (Lipitor) 40 MG tabletIndication s:Dyslipidemia TAKE 1 TABLET BY MOUTH AT BEDTIME 90 tablet 3 10/24/19 25 Active D3 Super Strength 50 MCG (1999) capsuleIndicatio ns:Vitamin deficiency TAKE 1 CAPSULE BY MOUTH EVERY MORNING 90 capsule 3 10/24/19 25 Active hydrOXYzine pamoate (Vistaril) 25 MG capsuleIndicatio ns:Urticaria TAKE 1 CAPSULE BY MOUTH AT BEDTIME NEEDED FOR ITCHING 30 capsule 1 11/03/19 25 Active losartan (Cozaar) 100 MG tablet TAKE 1 TABLET BY MOUTH EVERY MORNING 90 tablet 3 11/24/19 25 Active spironolactone-h ydroCHLOROthiazi de (Aldactazide) 25-25 MG tablet Take 1 tablet by mouth Once per day. 01/11/20 25 Active cyclobenzaprine (Flexeril) 10 MG tabletIndication s:Fibromyalgia TAKE 1 TABLET BY MOUTH ONE OR TWO TIMES DAILY NEEDED FOR MUSCLE SPASMS 30 tablet 1 01/15/20 25 Active LORazepam (Ativan) 1 MG tabletIndication s:Other specified anxiety disorders Take 1 tablet (1 mg) by mouth if needed in the morning and at bedtime for anxiety. Do not start before March 06, 2025. 56 tablet 5 03/06/20 25 Active pantoprazole (ProtoNix) 40 MG EC tablet TAKE 1 TABLET BY MOUTH EVERY DAY 90 tablet 05/02/20 25 Active pantoprazole (ProtoNix) 40 MG EC tablet TAKE 1 TABLET BY MOUTH EVERY DAY 90 tablet 07/04/20 24 025 Discontinued Active Problems Problem Noted Date Diagnosed Date Hypokalemia 09/18/2024 Assessment & Plan (01/14/2025 5:15 PM EDT): - in a setting of nausea, vomiting, and diarrhea on 09/28/24. K 2.3 mmol/L - previously on chlorthalidone; discontinued due to starting spironolactone - hctz. Assessment & Plan (10/17/2024 10:40 AM EST): [...] lab Allergic reaction 09/18/2024 Assessment & Plan (01/14/2025 5:16 PM EDT): -Pt had history of multiple allergies -Pt [...] has already been seen and treated by senior it specialist. She states she could not complete immunotherapy due to severe allergic reaction. Assessment & Plan (10/17/2024 10:44 AM EST): [...] has already been seen and treated by senior it specialist. She states she could not complete [...] Plan (12/17/2022 11:27 AM EDT): Seen by Band Master, Dr. Karimi, on 11/26/22. Reported exertional Cheat Pain Stress Test was ordered -will check status Chronic low back pain 10/04/2022 Assessment & Plan (10/04/2022 5:48 AM EST): Continue judicious use of APAP and cyclobenzaprine Strain of trapezius muscle 09/29/2022 Primary hypertension 09/29/2022 Assessment & Plan (01/14/2025 5:13 PM EDT): -Goal BP <140/90 per JNC-8, < 130/80 per ACC/AHA -BP not at goal today -Co-managed with revolving field assembler and PharmD. -pt advised to continue checking BP at home -revolving field assembler: Dr. Karimi, last visit in 12/06/24; exertional dyspnea. Possible evaluation with CTA or coronary angiography -normal Holter monitor and echo -continue working on lifestyle modifications -continue losartan 100 mg daily -continue metoprolol succinate 100 mg daily - start spironolactone - hctz 25-25 mg daily (history of hypokalemia on KCl supplement) as prescribed by wood milling machine operator Previous Treatment: -discontinued HCTZ and replaced chlorthalidone. -d/c Amlodipine d/t leg swelling - continue monitoring home BP -Return for BP check in 3 weeks. If SBP > 140 at home and SBP > 150 at clinic, consider adding isosorbide mononitrate 30 mg daily or nifedipine 30 mg daily. Assessment & Plan (10/10/2024 7:00 PM EST): -Goal BP <140/90 per JNC-8, < 130/80 per ACC/AHA -BP not at goal today -Co-managed with revolving field assembler and PharmD. -pt advised to continue checking BP at home -revolving field assembler: Dr. Karimi, last visit in 11/26/22; exertional [...] -BP not at goal today -Co-managed with revolving field assembler and PharmD. -pt advised to continue checking BP at home -revolving field assembler: Dr. Karimi, last visit in 11/26/22; exertional [...] -BP not at goal today -Co-managed with revolving field assembler and PharmD. -pt advised to continue checking BP at home -revolving field assembler: Dr. Karimi, last visit in 11/26/22; exertional [...] < 130/80 per ACC/AHA - co-managed with revolving field assembler and PharmD. -pt advised to continue checking BP at home -revolving field assembler: Dr. Karimi, last visit in 11/26/22; exertional [...] < 130/80 per ACC/AHA - co-managed with revolving field assembler and PharmD. -pt advised to continue checking BP at home -revolving field assembler: Dr. Karimi, last visit in 11/26/22; exertional [...] advised to continue checking BP at home -revolving field assembler: Dr. Karimi, last visit in 11/26/22; exertional [...] advised to continue checking BP at home -revolving field assembler: Dr. Karimi, last visit in 07/06/22; concerns [...] (transient ischemic attack) 09/29/2022 Assessment & Plan (01/14/2025 5:04 PM EDT): - seen in ED on 07/03/22 - Started on Plavix by revolving field assembler; ASA was discontinued due to GI bleed - Continue statin, clopidogrel, and losartan - Continue working on lifestyle modification / risk factor management Assessment & Plan (05/30/2024 11:03 AM EDT): - seen in ED on 07/03/22 - Started on Plavix by revolving field assembler; ASA was discontinued due to GI bleed - Continue statin, clopidogrel, and losartan - Continue working on lifestyle modification / risk factor management Assessment & Plan (11/30/2023 4:38 AM EDT): - seen in ED on 07/03/22 - Started on Plavix by revolving field assembler; ASA was discontinued due to GI bleed - Continue statin, clopidogrel, and losartan - Continue working on lifestyle modification / risk factor management Assessment & Plan (12/17/2022 11:23 AM EDT): - seen in ED on 07/03/22 - Started on Plavix by revolving field assembler; ASA was discontinued due to GI bleed - Continue statin, clopidogrel, and losartan - Continue working on lifestyle modification / risk factor management Assessment & Plan (10/04/2022 5:51 AM EST): - seen in ED on 07/03/22 - Started on Plavix by revolving field assembler; ASA was discontinued due to GI bleed - Continue statin, clopidogrel, and losartan - Continue working on lifestyle modification / risk factor management Type 2 diabetes mellitus 03/28/2020 Assessment & Plan (01/14/2025 5:15 PM EDT): - A1C 6.4% on 01/11/25, improving from 6.9% on 10/10/24 -continue metformin ER 500 mg daily, consider increasing if glycemic control does not improve with lifestyle modifications. -continue working on lifestyle modifications -Last lipid profile: 06/08/24 -Last microalbumin test: 06/08/24, no microalbuminuria -Last foot exam: 05/30/24 -Last comprehensive eye exam: -IZ: due for COVID booster & Influenza for the season Assessment & Plan (10/10/2024 7:00 PM EST): [...] 09/17/2019 Adrenal incidentaloma 12/28/2018 Assessment & Plan (01/14/2025 5:14 PM EDT): - most recent imaging in February 2023 - benign-appearing left adrenal cyst - repeating CT by wood milling machine operator Assessment & Plan (06/14/2023 3:20 PM EDT): [...] of lorazepam Dyslipidemia 05/06/2018 Assessment & Plan (01/14/2025 5:16 PM EDT): Current medication: Atorvastatin 40 mg at bedtime Last lipid profile: 06/08/24 Pt is recommended to be on high-intensity statin therapy according to guideline. Pt is hesitant to increasing its dose because of its potential side effect. Continue working on lifestyle modifications Check lipid profile and liver function test at least once a year Assessment & Plan (10/17/2024 10:41 AM EST): [...] describes 3 episodes, last on treated at [facility] on 04/2012 Assessment & Plan [...] Encounters Date Type Department Care Team Description 05/01/2025 Refill [facility] MEDICINE [address] [place] [address] Xuan Mckeon MD 03/21/2025 Telephone [facility] MEDICINE [address] [place] [address] Xuan Mckeon MD may recall 03/02/2025 Refill [facility] [address] [facility] [place] [address] Xuan Mckeon MD Other specified anxiety disorders 02/23/2025 Refill [facility] [address] [facility] [address] [place] [address] Xuan Mckeon MD Other specified anxiety disorders 02/20/2025 Telephone [facility] [address] [place] [address] Xuan Mckeon MD April recall 02/06/2025 Orders Only GENERIC EXTERNAL DATA DEPARTMENT Provider, Generic External Data from Last 3 Months Immunizations Immunization Administration Dates Next Due Influenza High-dose Quadriva [...] Sign Reading Time Taken Comments Blood Pressure 138/84 02/02/2025 11:48 AM EDT Pulse 79 02/02/2025 11:43 AM EDT Temperature 36.1 C (97 F) 01/11/2025 10:16 AM EDT Respiratory Rate 20 01/11/2025 10:16 AM EDT Oxygen Saturation 98% 01/11/2025 10:16 AM EDT Inhaled Oxygen Concentration - - Weight 76.7 kg (169 lb) 01/11/2025 10:16 AM EDT Height 154.9 cm (5' 1 ) 01/11/2025 10:16 AM EDT Body Mass Index 31.93 01/11/2025 10:16 AM EDT Plan of Treatment Upcoming Encounters Date Type Department Care Team (Late st Contact Info) Description 05/09/2025 10:00 AM EDT Medication Management [facility] MEDICINE [address] [place] [address] Yariel Schmid, PharmD [address] [place] [address] 05/15/2025 10:30 AM EDT Office Visit [facility] [address], [place] [phone] Xuan Mckeon MD [address] [place], [place] [phone] Health Maintenance Due Date Last Done Comments CT Colonography 1950 Colonoscopy 1950 Dental X-Ray: Bitewings 1950 FIT 1950 FOBT 1950 Sigmoidoscopy 1950 Hepatitis A Vaccines (1 [...] 11/05/2001 Dental X-Ray: Full Mouth 01/11/2024 01/09/2021 Depression Monitoring 11/27/2024 05/30/2024, 024 Eye Exam 02/23/2025 02/23/2023, 06/10/2015, 01/31/2015, Additional history exists COVID-19 Vaccine ( season) 2025 07/23/2021, 12/18/2020 Influenza Vaccine (#1) 2025 , 06/25/2023, 06/01/2022, Additional history exists Diabetes: Foot Exam 05/30/2025 05/30/2024, 05/30/2024, 05/30/2024, Additional history exists SDOH Screening 05/30/2025 05/30/2024 Diabetes: Hemoglobin A1C 07/14/2025 025, 10/10/2024, 09/18/2024, Additional history exists Alcohol/Substance Use Screening 09/18/2025 09/18/2024 Diabetes: Urine Protein Screening 11/08/2025 11/08/2024, 06/08/2024, 06/16/2023, Additional history exists Lipid Panel 11/08/2025 11/08/2024, 1011/2023, 06/16/2023, Additional history exists Tobacco Screening 01/11/2026 01/11/2025 Mammogram 2026 2024, 11/05, 05/19/2019, Additional history exists Colorectal Cancer Screening 01/11/2027 FIT DNA/Cologuard 01/11/2027 01/12/2024, 01/03/2024 Pneumococcal Vaccine: 50+ Years Completed 05/31/2020, 05/04/2019, 06/23/2016, Additional history exists Hepatitis C Screening Completed 10/23/2020 HIB Vaccines Aged Out No longer eligi [...] 11:48 AM EDT) No Yariel Schmid, Leelee Procedures Procedure Name Priority Date/Time Associated Diagnosis Comments CT ABDOMEN WO CONTRAST Routine 12:38 PM EDT BASIC METABOLIC PANEL Routine 02/06/2025 8:33 AM EDT URINALYSIS, COMPLETE Routine 02/06/2025 8:30 AM EDT POCT GLYCATED HEMOGLOBIN, TOTAL Routine 01/11/2025 10:46 AM EDT Type 2 diabetes mellitus without complication, without long-term current use of insulin (CMS/HCC) ALBUMIN, RANDOM URINE W/CREATININE Routine 11/08/2024 9:12 [...] Recently Relevant to Health Maintenance Results * CT abdomen w/o Contrast (03/08/2025 12:38 PM EDT) Anatomical Region Laterality Modality Body, Abdomen Computed Tomogra phy 03/08/2025 12:3 8 PM EDT Narrative 03/08/2025 1:57 PM EDT [address] [address] [address] Scan Report Signed Patient: Che Person MR #: [id number] : 1950 Acct:[id number] Age/Sex: 74 / F ADM Date: 03/08/25 Loc: HO.CT Attending Dr: Tate Gracia MD Ordering Physician: Tate Gracia MD Date of Service: 03/08/25 Procedure(s): CT abdomen wo IV con Accession Number(s): [id number] cc: Tate Gracia MD; Xuan Mckeon MD Report Number: [id number]: Total DLP = 293.00 mGy-cm EXAMINATION: CT ABDOMEN WITHOUT IV CONTRAST HISTORY: D35.02 - Benign neoplasm of left adrenal gland COMPARISON: Comparison is made with prior examinations dated 06/14/2024 and 02/23/2022. TECHNIQUE: CT scan of the abdomen was performed without contrast using standard departmental protocol. Coronal and sagittal reformatted images were generated and reviewed. Oral contrast material was not administered per department protocol. This CT exam was performed with one or more of the following dose reduction techniques: automated exposure control, adjustment of the mA and/or kV according to patient size, use of iterative reconstruction technique. DLP: 293 mGy-cm FINDINGS: LOWER CHEST: The visualized lung bases are clear. There is no pleural effusion. CARDIOVASCULATURE: The heart is normal in size. There is no pericardial effusion. LIVER: The liver is normal in size and contour. Again seen is a 1.4 cm hypodensity in the left lobe which likely represents a cyst or hemangioma. GALLBLADDER / BILE DUCTS: The gallbladder is surgically absent. There is no intra or extrahepatic biliary ductal dilatation. SPLEEN: The spleen is normal in size and has an unremarkable unenhanced appearance. PANCREAS: The pancreas has an unremarkable unenhanced appearance. ADRENAL GLANDS: The right adrenal gland is unremarkable. Again seen is a left adrenal nodule measuring 1.5 cm in size. This measures 8 8 Hathaway density, compatible with an adenoma. KIDNEYS/RETROPERITONEUM: No renal calculi are identified. There are bilateral extrarenal pelves without change. There is no hydronephrosis. LYMPH NODES: No retroperitoneal lymphadenopathy is identified in the abdomen or pelvis. VASCULATURE: The abdominal aorta demonstrates atherosclerotic calcification, but is normal in caliber. MESENTERY/PERITONEUM: No free fluid. No masses. There is no free intraperitoneal gas. STOMACH: The stomach is collapsed, limiting evaluation. SMALL BOWEL: The visualized small bowel is normal in caliber. COLON: The visualized portion of the colon is unremarkable. APPENDIX: Normal. BONES / SOFT TISSUES: There is degenerative disc disease of the spine. CT/CT abdomen wo IV con IMPRESSION: 1.5 cm left adrenal adenoma without change. Electronically signed by: Teddy Corona MD 03/08/2025 01:54 PM EDT RP Dictated By: Teddy Corona MD Signed By: <Electronically signed by Teddy Corona MD in OV> 03/08/25 1354 DD/ 1238 TD/TT: 03/08/25 1300 Arc Welding Machine Operator: Procedure Note Donotuseinterpreter, Image - 03/08/[address] [place] [address] [address] Scan Report Signed Patient: Alexis Person #: [id number] : 1950cct:[id number] Age/Sex: 74 / FADM Date: 03/08/25 Loc: HO.CT Attending Dr: Tate Gracia MD Ordering Physician: Tate Gracia MD Date of Service: 03/08/25 Procedure(s): CT abdomen wo IV con Accession Number(s): [id number] cc: Tate Gracia MD; Xuan Mckeon MD Report Number: [id number]: Total DLP = 293.00 mGy-cm EXAMINATION: CT ABDOMEN WITHOUT IV CONTRAST HISTORY: D35.02 - Benign neoplasm of left adrenal gland COMPARISON: Comparison is made with prior examinations dated 06/14/2024 and 02/23/2022. TECHNIQUE: CT scan of the abdomen was performed without contrast using standard departmental protocol. Coronal and sagittal reformatted images were generated and reviewed. Oral contrast material was not administered per department protocol. This CT exam was performed with one or more of the following dose reduction techniques: automated exposure control, adjustment of the mA and/or kV according to patient size, use of iterative reconstruction technique. DLP: 293 mGy-cm FINDINGS: LOWER CHEST: The visualized lung bases are clear. There is no pleural effusion. CARDIOVASCULATURE: The heart is normal in size. There is no pericardial effusion. LIVER: The liver is normal in size and contour. Again seen is a 1.4 cm hypodensity in the left lobe which likely represents a cyst or hemangioma. GALLBLADDER / BILE DUCTS: The gallbladder is surgically absent. There is no intra or extrahepatic biliary ductal dilatation. SPLEEN: The spleen is normal in size and has an unremarkable unenhanced appearance. PANCREAS: The pancreas has an unremarkable unenhanced appearance. ADRENAL GLANDS: The right adrenal gland is unremarkable. Again seen is a left adrenal nodule measuring 1.5 cm in size. This measures 8 8 Hathaway density, compatible with an adenoma. KIDNEYS/RETROPERITONEUM: No renal calculi are identified. There are bilateral extrarenal pelves without change. There is no hydronephrosis. LYMPH NODES: No retroperitoneal lymphadenopathy is identified in the abdomen or pelvis. VASCULATURE: The abdominal aorta demonstrates atherosclerotic calcification, but is normal in caliber. MESENTERY/PERITONEUM: No free fluid. No masses. There is no free intraperitoneal gas. STOMACH: The stomach is collapsed, limiting evaluation. SMALL BOWEL: The visualized small bowel is normal in caliber. COLON: The visualized portion of the colon is unremarkable. APPENDIX: Normal. BONES / SOFT TISSUES: There is degenerative disc disease of the spine. CT/CT abdomen wo IV con IMPRESSION: 1.5 cm left adrenal adenoma without change. Electronically signed by: Teddy Corona MD 03/08/2025 01:54 PM EDT Dictated By: Teddy Corona MD Signed By: <Electronically signed by Teddy Corona MD in OV> 03/08/25 1354 DD/ 1238 TD/TT: 03/08/25 1300 Arc Welding Machine Operator: [facility] External Provider IMG CT PROCEDURES Edited Result - Final * (ABNORMAL) Basic Metabolic Panel (02/06/2025 8:33 AM EDT) Sodium 138 135 - 145 mmol/L [facility] Potassium 4.6 3.3 - 5.1 mmol/L [facility] Chloride 102 96 - 108 mmol/L [facility] Carbon Dioxide 31(H) 22 - 29 mmol/L [facility] Anion Gap 10(L) 12 - 20 [facility] Urea Nitrogen (BUN) 19(H) 9 - 16 mg/dL [facility] Creatinine, Serum 0.80 0.5 - 1.4 mg/dL [facility] Estimated Glomerular Filt Rate >60 [facility] Comment:Chronic Kidney Disea se: Estimated GFR < 60 mL/min/1.90w7Clrqzf Kidney Disease: Estimated GFR < 15 mL/min/1.73m2 Glucose 133(H) 60 - 115 mg/dL [facility] Calcium 9.4 8.4 - 10.2 mg/dL [facility] 02/06/2025 8:33 AM EDT 02/06/2025 8:33 AM EDT us Generic External Data Provider LAB BLOOD ORDERAB LES Final Result [facility] [address] [place] [phone] * (ABNORMAL) Urinalysis Complete (02/06/2025 8:30 AM EDT) Color Urine Yellow [facility] Appearance Urine Cloudy [facility] PH 6.0 5.0 - 9.0 [facility] Glucose Urine UA Negative Negative mg/dL [facility] Urine Blood Negative Negative [facility] Specific [place] - Urine 1.020 1.005 - 1.025 [facility] Urine Protein Negative Neg-Trace mg/dL [facility] Urine Ketones Negative Negative mg/dL [facility] Nitrite Urine Positive(A) Negative [facility] Leukocyte Esterase Urine Moderate (2+)(A) Negative [facility] RBC Urine 0-2 0 - 2 /HPF [facility] Urine WBC 21-50(A) 0 - 5 /HPF [facility] Urine Squamous Epithelial Cell 6-10 0 - 2 /HPF [facility] Urine Bacteria 4+ None Seen [facility] Hyaline Casts, Urine 0-2 0 - 2 /LPF [facility] 02/06/2025 8:30 AM EDT 02/06/2025 8:38 AM EDT us Generic External Data Provider LAB URINE ORDERAB LES Final Result [facility] [address] [place] [address] [phone] * (ABNORMAL) POCT HGB A1C (01/11/2025 10:46 AM EDT) Hemoglobin A1C 6.4(A) 4.0 - 6.0 % QC Media Lot # [id number] Lot# Expiration Date Blood 01/11/2025 10:4 6 AM EDT us Xuan Mckeon MD POINT OF CARE TEST ENTER/EDIT OR DERABLES Final Result * (ABNORMAL) Lipid Panel with Reflex to Direct LDL (11/08/2024 9:12 AM EST) Triglycerides 229(H) <150 mg/dL [facility] Comment:Desirable Triglyceri de: less than 150 mg/dLBorderline High Triglyceride 150-199 mg/dLHigh Triglyceride: 200-499 mg/dLVery High Triglyceride: greater than or equal to 5OO mg/dL Cholesterol 166 <200 mg/dL [facility] Comment:Desirable Cholestero l: less than 200 mg/dLBorderline High Cholesterol: 200-239 mg/dLHigh Cholesterol: greater than 239 mg/dL LDL Cholesterol Calculated 83 <100 mg/dL [facility] Comment:Desirable LDL: less than 100 mg/dLNear Optimal/Above Optimal LDL: 110- 129 mg/dLBorderline High LDL: 130-159 mg/dLHigh LDL: 160-189 mg/dLVery High LDL: greater than or equal to 190 mg/dL HDL Cholesterol 38(L) >40 mg/dL [facility] Comment:Desirable HDL: great er than 40 mg/dL Note: This HDL assay may give artificially low results in patients with liver disease. Blood 11/08/2024 9:12 AM EST 11/08/2024 11:25 AM EST us Xuan Mckeon MD LAB BLOOD ORDERABLES Final Resul t Performing Organization Address [facility] de Phone Number [facility] [address] [place] [phone] * Albumin, Random Urine W/Creatinine (11/08/2024 9:12 AM EST) Creatinine, Urine 161.01 mg/dL [facility] Microalbumin Urine 6.0 mg/L [facility] Microalbum Creatinine Ratio Ur 3.7 <30 ug/mg cr [facility] Comment:Albumin/Creatinine R atio Reference Ranges: Normal: < 30 ug/mg creatinine Microalbuminuria: 30 - 300 ug/mg creatinineClinical Albuminuria: > 300 ug/mg creatinine Urine 11/08/2024 9:12 AM EST 11/08/2024 11:25 AM EST us Xuan Mckeon MD LAB URINE ORDERABLES Final Resul t Performing Organization Address [facility] Co de Phone Number [facility] [address] [place] [phone] * BI Mammogram Screening Tomosynthesis Bilateral (2024 9:15 AM EDT) Anatomical Region Laterality Modality Breast Bilateral Mammography 2024 9:15 AM EDT Narrative 06/15/2024 7:13 PM EDT [facility] [address] [place] [address] Mammography Report Signed Patient: Che Person MR #: [id number] : 1950 Acct:[id number] Age/Sex: 74 / F ADM Date: 06/06/24 Loc: [facility] Attending Dr: Xuan Mckeon MD Ordering Physician: Xuan Mckeon MD Results: 1Negative Date of Service: 06/06/24 Follow Up: 1 Year From [facility] ina Mammogram Procedure(s): MM tomosynthesis screening BI Accession Number(s): [id number] cc: Xuan Mckeon MD EXAMINATION: MM SCREENING [...] in OV> 06/15/241909 DD/ 4 TD/TT: 06/06/24919 Arc Welding Machine Operator: Procedure Note Donotuseinterpreter, Image - 06/15/2024 [facility] [address] [place] [address] Mammography Report Signed Patient: Alexis Person #: [id number] : [id number] Age/Sex: 74 / FADM Date: 06/06/24 Loc: [facility] Attending Dr: Xuan Mckeon MD Ordering Physician: Xuan Mckeon MDResults: 1Negative Date of Service: 06/06/24Follow Up: 1 Year From Orig ina Mammogram Procedure(s): MM tomosynthesis screening BI Accession Number(s): [id number] cc: Xuan Mckeon MD EXAMINATION: MM SCREENING [...] Urvashi Blanton DO in OV> 06/15/241909 DD/ TD/TT: 06/06/24919 Arc Welding Machine Operator: Xuan [facility]keon [facility] PROCED[facility] Edited Result - Final * FIT DNA/Cologuard Cancer Screening (01/12/2024) Cologuard Cancer Screen Negative Stool Historical Provider HEALTH MAINTENANCE Final Result * Hm Diabetes Eye Exam (02/23/2023) Eye Exam Normal Normal, BIRADS 0 , BIRADS 1 , BIRADS 2, BIRADS 3 , BIRADS 4+ 02/23/2023 Historical Provider HEALTH MAINTENANCE Final Result * HEPATITIS C AB W/REFL TO HCV RNA, QN, PCR (10/23/2020 8:55 AM EST) HEPATITIS C ANTIBODY NON-REACT ADAMA NON-REACT ADAMA [facility] INDEX 0.01 <1.00 [facility] Comment: HCV antibody was non-reactive. There is no laboratory evidence of HCV infection. In most cases, no further action is required. However, if recent HCV exposure is suspected, a test for HCV RNA (test code 97399) is suggested. For additional information please refer to http://education.Postini/faq/DPJ57h2 (This link is being provided for informational/ educational purposes only.) 10/23/2020 8:55 AM EST Xuan Mckeon MD HISTORICAL/NON ORDERABLE LABS Fi nal Result [facility] [address] from Last 3 Months or Most Recently Relevant to Health Maintenance Insurance [facility] [employer] OPTIONS (O D-SNP) Member Subscriber Plan / Payer (Ef fective 2024-Present) Name:Che Person Relation to Subscriber:Self Name:Che Person Payer ID:Not on file Group ID:[facility] [place] Type:Medicare Address: [place] [address] [address] [address] DENTAL - [facility] Care Teams Ash Pit Worker Relationship Specialty Start Date End Date Xuan Mckeon MD [address] [place] [address] PCP - General Family Medicine 09/20/20 Yariel Schmid, PharmD [address] [place] [address] Pharmacist Internal Medicine 11/23/22
--- OUTSIDE RECORDS SUMMARY | 2025-05-09 01:07 | XMS_ITS | Encounter Summary ---
Author Organization [employer] Address 75 [facility] 7t [place] [address] Care Team Providers Care Panel Machine Operator Name Role Phone Xuan Mckeon MD Primary Care Provider [phone] Yariel Schmid PharmD Unavailable [phone] Reason for Visit * Reason Comments Med Refill Encounter Details Date Type Department Care Team ([facility] st Contact Info) Description 10/18/2024 Refill [facility] [address] [place], [place] [phone] Xuan Mckeon MD [address] [place], [place] [phone] Fibromyalgia Social History Tobacco Use Types Packs/Day [...] Upcoming Encounters Date Type Department Care Team ([facility] st Contact Info) Description 05/09/2025 10:00 AM EDT Medication Management [facility] [address] [place] [address] Yariel Schmid, PharmD [address] [place] [address] 05/15/2025 10:30 AM EDT Office Visit [facility] [address] [place] [address] Xuan Mckeon MD [address] [place] [address] documented as of this encounter Goals Goal [...] documented as of this encounter Care Teams Panel Machine Operator Relationship Specialty Start Date End Date Xuan Mckeon MD [address] [place] [address] PCP - General Family Medicine 09/20/20 Yariel Schmid, Leelee [address] [place] [address] Pharmacist Internal Medicine 11/23/22 documented as of this encounter
--- OUTSIDE RECORDS SUMMARY | 2025-05-09 01:07 | XMS_ITS | Encounter Summary ---
Author Organization [employer] Address [address] [facility] [address] 7t [place] [address] Care Team Providers Care Single Needle Tufting Machine Operator Name Role Phone Xuan Mckeon MD Primary Care Provider [phone] Yariel Schmid PharmD Unavailable [phone] Reason for Visit * Reason Onset Date Comments Appointment Request 08/23/2024 Encounter Details Date Type Department Care Team ([facility] st Contact Info) Description 08/23/2024 Telephone [facility] [address] [place] [address] Xuan Mckeon MD [address] [place] [address] Appointment Request Social History Tobacco Use Types [...] today's CDTM visit. Please contact pt at [phone]. (Australian Speaker) documented in this encounter Plan of Treatment Upcoming Encounters Date Type Department Care Team ([facility] st Contact Info) Description 05/09/2025 10:00 AM EDT Medication Management [facility] [address] [place] [phone] Yariel Schmid, PharmD [address] [place] [address] 05/15/2025 10:30 AM EDT Office Visit [facility] [address] [place] [address] [phone] Xuan Mckeon MD [address] [place] [address] documented as of this encounter Goals Goal [...] documented as of this encounter Care Teams Single Needle Tufting Machine Operator Relationship Specialty Start Date End Date Xuan Mckeon MD [address] [place] [address] PCP - General Family Medicine 09/20/20 Yariel Schmid, PharmD [address] [place] [address] Pharmacist Internal Medicine 11/23/22 documented as of this encounter
--- OUTSIDE RECORDS SUMMARY | 2025-05-09 01:07 | XMS_ITS | Encounter Summary ---
Author Organization [employer] Address 75 [facility] 7t [place] [address] Care Team Providers Care Per Diem Nurse Name Role Phone Xuan Mckeon MD Primary Care Provider Yariel Schmid PharmD Unavailable [phone] Reason for Referral * Consultation (Routine) - Authorized Specialty Diagnoses / Procedures Referred By Contac t Referred To Contact Pharmacy Diagnoses Primary hypertension Type 2 diabetes mellitus without complication, without long-term current use of insulin (CMS/HCC) Xuan Mckeon MD [address] [place] [address] Phone: tel: fax: Referral ID Status Reason Start Date Expiration Date Visits Requested Visits Authorized [id number] Authorized Consult and Treat 07/18/2024 07/18/2025 6 6 Encounter Details Date Type Department Care Team (Late st Contact Info) Description 07/18/2024 Orders Only [facility] [address] [place] [address] [phone] Xuan Mckeon MD [address] [place], [place] [phone] Primary hypertension (Primary Dx); Type 2 diabetes [...] Description 05/09/2025 10:00 AM EDT Medication Management [facility] [address] [place] [phone] Yariel Schmid, CristóbalD [address] [place] [address] 05/15/2025 10:30 AM EDT Office Visit [facility] [address] [place] [address] Xuan Mckeon MD [address] [place] [address] Scheduled Referrals Name Type Priority Associated Diagnoses Orde r Schedule Referral to Pharmacy CDTM Outpatient Referral Routine Primary hypertension Type 2 diabetes mellitus without complication, without long-term current use of insulin ([facility]) Ordered: 07/18/2024 documented as of this encounter Goals Goal Patient Goal Type Associated Problems Recent Progress Patient-Stated? Author Blood Pressure < 140/90 Blood Pressure 138/84( 025 11:48 AM EDT) No Yariel Schmid, Leelee documented as of this encounter Visit Diagnoses Diagnosis Primary hypertension- Primary Unspecified essential hypertension Type 2 diabetes mellitus without complication, without long-term current use of insulin ([facility]) documented in this encounter Additional Health Concerns Assessment Noted Time PHQ-9 Depression Total Score: 11 024 10:30 AM EDT documented as of this encounter Care Teams Per Diem Nurse Relationship Specialty Start Date End Date Xuan Mckeon MD [address] [place] [address] PCP - General Family Medicine 09/20/20 Yariel Schmid, CristóbalD [address] [place] [address] Pharmacist Internal Medicine 11/23/22 documented as of this encounter
--- OUTSIDE RECORDS SUMMARY | 2025-05-09 01:07 | XMS_ITS | Clinical Summary ---
Author Organization [facility] Address [address] [place] [id number] Care Team Providers Care Strap Buckler Machine Name Role Phone Unavailable Primary Care Provider [...]
--- OUTSIDE RECORDS SUMMARY | 2025-05-09 01:07 | XMS_ITS | Encounter Summary ---
Author Organization [email or web address] Address [address] [facility] [address] 7t [place] [address] Care Team Providers Care Rn Physician Office Name Role Phone Xuan Mckeon MD Primary Care Provider [phone] Yariel Schmid PharmD Unavailable [phone] Reason for Visit * Reason Comments Med Refill Encounter Details Date Type Department Care Team ([facility] st Contact Info) Description 03/06/2024 Refill [facility] 230 [place], [place] [phone] Ofelia Akhtar, ANP [address] [place], [place] [phone] Other specified anxiety disorders Social History Tobacco [...] Description 05/09/2025 10:00 AM EDT Medication Management [facility] [address] [place] [address] Yariel Schmid PharmD [address] [place] [address] 05/15/2025 10:30 AM EDT Office Visit [facility] [address] [place] [address] Xuan Mckeon MD [address] [place] [address] documented as of this encounter Goals Goal [...] as of this encounter Care Teams Rn Physician Office Relationship Specialty Start Date End Date Xuan Mckeon MD [address] [place] [address] PCP - General Family Medicine 09/20/20 Yariel Schmid PharmD [address] [place] [address] Pharmacist Internal Medicine 11/23/22 documented as of this encounter
--- OUTSIDE RECORDS SUMMARY | 2025-05-09 01:08 | XMS_ITS | Encounter Summary ---
Author Organization [employer] [facility] Address [address] [place] [address] 7t [place] [address] Care Team Providers Care Surgery Nurse Name Role Phone Xuan Mckeon MD Primary Care Provider [phone] Yariel Schmid PharmD Unavailable [phone] Reason for Visit * Reason Comments Med Refill Encounter Details Date Type Department Care Team (Late Contact Info) Description 04/07/2023 Refill [facility] [address] [place] [address] [phone] Xuan Mckeon MD [address] [place] [address] [phone] Vitamin B12 deficiency Social History Tobacco Use [...] Department Care Team (Late Contact Info) Description 05/09/2025 10:00 AM EDT Medication Management [facility] [address] [place], [place] [phone] Yariel Schmid, PharmD [address] [place], [place] [phone] 05/15/2025 10:30 AM EDT Office Visit [facility] [address] [place] [address] Xuan Mckeon MD [address] [place] [address] documented as of this encounter Goals Goal [...] documented as of this encounter Care Teams Surgery Nurse Relationship Specialty Start Date End Date Xuan Mckeon MD [address] [place] [address] PCP - General Family Medicine 09/20/20 Yariel Schmid, PharmD [address] [place] [address] Pharmacist Internal Medicine 11/23/22 documented as of this encounter
--- OUTSIDE RECORDS SUMMARY | 2025-05-09 01:08 | XMS_ITS | Encounter Summary ---
Author Organization [employer] Address 75 [facility] 7t [place] [address] Care Team Providers Care Allergy And Immunology Chief Name Role Phone Xuan Mckeon MD Primary Care Provider [phone] Yariel Schmid PharmD Unavailable [phone] Reason for Visit * Reason Comments Med Refill Encounter Details Date Type Department Care Team ([facility] st Contact Info) Description 02/23/2025 Refill [facility] 230 [place], [place] [phone] Xuan Mckeon MD [address] [place], [place] [phone] Other specified anxiety disorders Social History Tobacco [...] Description 05/09/2025 10:00 AM EDT Medication Management [address] [address] Yariel Schmid, PharmD [address] [place] [address] 05/15/2025 10:30 AM EDT Office Visit [facility] [address] [place] [address] Xuan Mckeon MD [address] [place] [address] documented as of this encounter Goals Goal [...] documented as of this encounter Care Teams Allergy And Immunology Chief Relationship Specialty Start Date End Date Xuan Mckeon MD [address] [place] [address], [place] [address] PCP - General Family Medicine 09/20/20 Yariel Schmid, Leelee [address] [place] [address] Pharmacist Internal Medicine 11/23/22 documented as of this encounter
--- OUTSIDE RECORDS SUMMARY | 2025-05-09 01:08 | XMS_ITS | Encounter Summary ---
Author Organization [employer] Address [address] [facility] [address] 7t [place] [address] Care Team Providers Care Medication Care Manager Name Role Phone Xuan Mckeon MD Primary Care Provider Yariel Schmid PharmD Unavailable Encounter Details Date Type Department Care Team ([facility] st Contact Info) Description 12/06/2023 Orders Only [facility] 230 [place], [place] [phone] Xuan Mckeon MD 230 [place], [place] [phone] Social History Tobacco Use Types Packs/Day Years [...] 05/09/2025 10:00 AM EDT Medication Management [facility] [address] [place] [address] Yariel Schmid PharmD [address] [place] [address] 05/15/2025 10:30 AM EDT Office Visit [facility] [address] [place] [address] Xuan Mckeon MD [address] [place] [address] documented as of this encounter Goals Goal [...] documented as of this encounter Care Teams Medication Care Manager Relationship Specialty Start Date End Date Xuan Mckeon MD [address] [place] [address] PCP - General Family Medicine 09/20/20 Yariel Schmid PharmD [address] [place] [address] Pharmacist Internal Medicine 11/23/22 documented as of this encounter
--- OUTSIDE RECORDS SUMMARY | 2025-05-09 01:08 | XMS_ITS | Encounter Summary ---
Author Organization [employer] Address 75 [facility] 7t [place] [address] Care Team Providers Care Web Programmer Name Role Phone Xuan Mckeon MD Primary Care Provider [phone] Yariel Schmid PharmD Unavailable [phone] Reason for Visit * Reason Comments Med Refill Encounter Details Date Type Department Care Team (Late Contact Info) Description 03/18/2023 Refill [facility] [address] [place], [place] [phone] Xuan Mckeon MD [address] [place] [address] Other specified anxiety disorders Social History Tobacco [...] Description 05/09/2025 10:00 AM EDT Medication Management [facility] 230 [place], [place] [phone] Yariel Schmid, PharmD [address] [place], [place] [phone] 05/15/2025 10:30 AM EDT Office Visit [facility] 230 [facility] [place] [address] Xuan Mckeon MD [address] [place] [address] documented as of this encounter Goals Goal [...] documented as of this encounter Care Teams Web Programmer Relationship Specialty Start Date End Date Xuan Mckeon MD [address] [place] [address] PCP - General Family Medicine 09/20/20 Yariel Schmid, PharmD [address] [place] [address] Pharmacist Internal Medicine 11/23/22 documented as of this encounter
--- OUTSIDE RECORDS SUMMARY | 2025-05-09 01:08 | XMS_ITS | Encounter Summary ---
Author Organization [employer] Address [address] [facility] [address] 7t [place] [address] Care Team Providers Care Patient Account Liaison Name Role Phone Xuan Mckeon MD Primary Care Provider [phone] Yariel Schmid PharmD Unavailable [phone] Encounter Details Date Type Department Care Team ([facility] st Contact Info) Description 12/24/2023 Orders Only [facility] [address] [place], [place] [phone] Xuan Mckeon MD 230 [place], [place] [phone] Dermatitis (Primary Dx) Social History Tobacco Use [...] Upcoming Encounters Date Type Department Care Team ([facility] Contact Info) Description 05/09/2025 10:00 AM EDT Medication Management [facility] [address] [place] [address] Yariel Schmid, PharmD [address] [place] [address] 05/15/2025 10:30 AM EDT Office Visit [facility] [address] [place] [address] Xuan Mckeon MD [address] [place] [address] documented as of this encounter Goals Goal [...] documented as of this encounter Care Teams Patient Account Liaison Relationship Specialty Start Date End Date Xuan Mckeon MD [address] [place] [address] PCP - General Family Medicine 09/20/20 Yariel Schmdi, PharmD [address] [place] [address] Pharmacist Internal Medicine 11/23/22 documented as of this encounter
[2025-05-09 03:28] LABS: COVID-19 Test Negative (Negative); IDNOW Serial# 55D5AD1C; IDNOW Serial# 58CA691E; Influenza B2 Negative (Negative)
[2025-05-09 04:00] VITALS: BP 139/55; PULSE 78; RESP 16; TEMP 36.5; O2SAT 96
[2025-05-09 06:00] VITALS: BP 142/64; PULSE 79; RESP 19; TEMP 36.5; O2SAT 98
--- NOTE | 2025-05-09 06:16 | ED.SOB ---
HPI - SOB/Dyspnea General Chief Complaint: Dyspnea Stated Complaint: SOB Time Seen by Provider: 05/09/25 01:29 Source: patient and conference interpreter Mode of arrival: EMS Limitations: language barrier History of Present Illness ED Provider: Dr. Morenita Lee HPI Narrative: 74-year-old female with history of arthritis, depression, diabetes, hypertension, presenting with abdominal bloating, choking sensation when she laid down tonight. States she became very anxious and went to her neighbor's house who gave her of possible of her inhaler. Admits that it did help her breathing and she called 911. Admits that she went to bed feeling somewhat sick. Had been having some rib pain on the right side that she thought might be from sitting too long. The sensation of shortness of breath woke her from sleep. Denies associated fever, cough, vomiting, bowel changes, urinary complaints. She has no asthma or COPD history. She is a nonsmoker. Related Data Home Medications ?Medication ?Instructions ?Recorded ?Confirmed lorazepam 1 mg tablet 1 mg PO BID PRN anxiety 07/04/20 04/23/25 losartan 100 mg tablet 100 mg PO DAILY 07/04/20 04/23/25 metformin 500 mg tablet,extended 500 mg PO DAILY 07/04/20 04/23/25 release 24 hr atorvastatin 40 mg tablet 40 mg PO DAILY 07/06/22 04/23/25 cyanocobalamin (vitamin B-12) 500 500 mcg PO DAILY 07/06/22 04/23/25 mcg tablet metoprolol succinate 100 mg 100 mg PO DAILY 07/25/24 04/23/25 tablet,extended release 24 hr cetirizine 10 mg tablet 10 mg PO DAILY PRN itch 04/02/25 04/23/25 cholecalciferol (vitamin D3) 50 50 mcg PO DAILY 04/25/25 mcg (2,000 unit) capsule multivitamin 1 tab PO DAILY 04/25/25 Previous Rx's ?Medication ?Instructions ?Recorded tramadol 50 mg tablet 50 mg PO Q6H PRN pain #20 tabs 06/14/24 spironolactone 25 1 tab PO DAILY #90 tabs 04/03/25 mg-hydrochlorothiazide 25 mg tablet left wrist splint #1 ea 04/25/25 clopidogrel 75 mg tablet 75 mg PO DAILY #90 tabs 04/26/25 albuterol sulfate 90 mcg/actuation 2 inh inhalation Q4H PRN shortness 05/09/25 breath activated powder inhaler of breath #1 ea dicyclomine 20 mg tablet 20 mg PO TID #10 tabs 05/09/25 Allergies Allergy/AdvReac Type Severity Reaction Status Date / Time hydrocodone (HYDROCODONE) Allergy Unknown UNKNOWN Verified 05/09/25 00:10 levofloxacin (LEVOFLOXACIN) Allergy Unknown Rash Verified 05/09/25 00:10 metronidazole (METRONIDAZOLE) Allergy Unknown UNK Verified 05/09/25 00:10 promethazine (PROMETHAZINE) Allergy Unknown Rash Verified 05/09/25 00:10 Codeine Allergy Unknown swelling/ Uncoded 05/09/25 00:10 itching/ hives dye contrast Allergy Unknown red skin Uncoded 05/09/25 00:10 Hydrocodone-Acetaminophen Allergy Unknown rash Uncoded 05/09/25 00:10 Review of Systems Review of Systems: as per HPI, full review of systems performed and negative but for the above mentioned pertinent positives and negatives. [facility] Past Medical History Medical History Numbness and tingling in both hands Carpal tunnel syndrome on left Diverticulitis Hypertension Surgical History H/O section Family History Family History Father No problems noted. Mother CVD (cardiovascular disease) Social History Social History Alcohol intake: never Patient Tobacco Use Status: Never used Tobacco Smoked in Last 30 Days: No Use of substances other than those prescribed or required for medical reasons: No Advance Directives: No Advance Directives Information Provided: Yes Do you have a plan to hurt others: No Plan Physical Exam Exam: Exam: GENERAL: Ill-Appearing, appears uncomfortable. SKIN: Normal skin color for ethnicity, warm, dry, no rashes noted. HEENT:? Normocephalic, atraumatic, no stridor, dry mucous membranes, dentition intact, EOMI. NECK: Soft, supple, full ROM, midline structures nontender, no step-offs, no deformities, no lymphadenopathy. CHEST: Heart regular rhythm, no murmurs, symmetric chest rise and fall. PULMONARY: Clear to auscultation bilaterally, diminished at the bases, no labored breathing, no wheezes/rhales/rhonchi. ABDOMINAL: Softly distended, nontender, positive bowel sounds in all quadrants. : Deferred. MUSCULOSKELETAL: Normal tone, full range of motion, no deformities, no peripheral edema. NEURO: Alert and oriented x3, CN II through XII intact, equal strength and sensation bilateral upper and lower extremities, no focal neurologic deficits.? PSYCHIATRIC: Flat affect, fluid speech, good eye contact and appropriate demeanor. Vital Signs: Vital Signs: Last Vital Signs Temp 97.7 F 05/09/25 06:34 Pulse 79 05/09/25 06:34 Resp 19 05/09/25 06:34 BP 142/64 H 05/09/25 06:34 Pulse Ox 98 05/09/25 06:34 O2 Del Method Room Air 05/09/25 06:34 BMI result Body Mass Index 33.3 Medical Decision Making Medical Decision Making [facility] Narrative: Patient presents today with chief complaint of shortness of breath. Differential diagnosis includes, but is not limited to, upper respiratory infection, pneumonia, COPD exacerbation, asthma exacerbation, CHF, pneumothorax, pleural effusion, pulmonary embolism, ACS. Broad-based work-up will be initiated to evaluate for etiology of patient's symptoms. Patient has no history of asthma but was feeling improved after the use of an inhaler today. Her oxygen levels and work of breathing have been normal. She has had a relatively normal workup including cardiac enzymes and flu and COVID testing. Symptoms are so consistent with dyspepsia and bloating. Going to give her some Bentyl for home as well as an inhaler if her symptoms are to return. Using shared decision making, plan for discharge home to follow-up with primary care and/or specialist. Patient understands and agrees with plan for discharge. Discharged home in stable condition. Differential Diagnosis Differential Diagnoses: The differential diagnosis associated with the presentation includes (as above) Admission/Observation Consideration of admission/observation: Escalation of care including admission/observation considered Lab Data [facility] Lab Attestation statement: I reviewed the patient's lab results. 05/09/25 00:38 05/09/25 00:38 Labs: Lab Results 05/09/25 05/09/25 Range/Units 00:38 03:07 WBC 9.7 (4.8-10.8) X10*3/uL RBC 3.68 L (4.20-5.50) X10*6/uL Hgb 11.8 L (12.0-16.0) g/dl Hct 33.0 L (37.0-47.0) % MCV 89.7 (80.0-98.0) fL MCH 32.1 (27.0-33.0) pg MCHC 35.8 H (31.0-35.0) g/dl RDW 12.7 (11.0-16.0) % Plt Count 215 (160-400) X10*3/uL MPV 9.9 (9.4-12.3) fL Immature Gran % (Auto) 0.3 (0.0-0.4) % Neut % (Auto) 77.2 H (45-73) % Lymph % (Auto) 12.8 L (20-40) % Centre % (Auto) 8.2 (2-11) % Eos % (Auto) 1.2 (0-4) % Baso % (Auto) 0.3 (0-2) % Lymph # (Auto) 1.2 (1.2-4.9) X10*3/uL Centre # (Auto) 0.8 (0.1-1.2) X10*3/uL Eos # (Auto) 0.1 (0.0-0.4) X10*3/uL Baso # (Auto) 0.0 (0.0-0.2) X10*3/uL Abs Immat Gran (auto) 0.03 (0.00-0.03) X10*3/uL Absolute Neuts (auto) 7.5 (2.0-8.3) x10*3/uL Absolute Nucleated RBC 0.000 (0.0-0.012) X10*3/uL Nucleated RBC % (auto) 0.0 (0.0-0.2) /100WBC Sodium 136 (135-145) mmol/L Potassium 4.3 (3.3-5.1) mmol/L Chloride 102 (96-108) mmol/L Carbon Dioxide 25 (22-29) mmol/L Anion Gap 13 (12-20) BUN 19 H (9-16) mg/dL Creatinine 0.90 (0.5-1.4) mg/dL Estim Creat Clear Calc 53.2 Estimated GFR > 60 Random Glucose 149 H (60-115) mg/dL Calcium 8.9 (8.4-10.2) mg/dL Total Bilirubin 0.4 (0.0-1.0) mg/dL AST 21 (5-31) U/L ALT 22 (0-31) U/L Alkaline Phosphatase 50 (39-117) U/L Troponin I High Sens 14.7 D (<3.5-17.0) ng/L Total Protein 6.4 L (6.5-8.0) g/dL Albumin 4.3 (3.5-5.0) g/dL COVID-19 (CONCHA) Negative (Negative) COVID-19 Clin Com See Note Influenza Type A (MEL) Negative (Negative) Influenza Type B (MEL) Negative (Negative) Influenza A & B Note See Note Independent Interpretation I performed an independent interpretation of an: EKG and Plain X-Ray Radiology Impression Discussion of test interpretation with radiology: I have reviewed the radiologist's reading. Independent Historian Clinical information obtained from an independent historian. History obtained from or confirmed by: EMS External Record Review External record reviewed: Inpatient record and Prior outpatient labs Prescription Management I considered prescription management with: Pain Medication and Other (albuterol inhaler) Chronic Conditions Patient?s care impacted by: Hypertension and Other (depression) Social Determinants Patient?s care significantly limited by Social Determinants of Health including: Problems related to primary support group Discharge Plan Discharge Clinical Impression: Acute dyspnea, Abdominal bloating with cramps Patient Disposition: Home, Self-Care Instructions: How to Avoid and Decrease Problems with Gas (DC), Dyspnea (ED) Additional Instructions: DIAGNOSIS & TREATMENT: You were seen in the Emergency Department for your chest discomfort. We performed an EKG, laboratory work and chest xray which did not reveal any acute abnormalities that would explain your symptoms. FURTHER CARE: We have not found any emergent physical exam or lab abnormalities that would require admission to the hospital today. Many people who come to the ER with chest discomfortn do not leave with a specific diagnosis at the end of their visit. In the Emergency Department we try to make sure that there is no emergent problem that needs admission to the hospital or antibiotics right now. This does not mean that your evaluation is complete--please be sure to follow up with your regular doctor as additional testing as an outpatient may be indicated. Please be certain to drink plenty of fluids over the next several days. WHEN YOU SHOULD BE SEEN NEXT: Please follow-up with your primary care provider within the next 2-3 days for reevaluation of your symptoms. WHEN TO RETURN TO THE ED: Monitor your symptoms closely and return to the emergency department immediately for any new/worsening symptoms including: Worsening chest pain, difficulty breathing, fevers greater than 100 degrees, passing out, any new symptom that concerns you. Call 911 with any medical emergency. Prescriptions: New dicyclomine 20 mg tablet 20 mg PO TID Qty: 10 0RF albuterol sulfate 90 mcg/actuation aerosol powdr breath activated 2 inh inhalation Q4H PRN (Reason: shortness of breath) Qty: 1 0RF No Action spironolacton-hydrochlorothiaz 25-25 mg tablet 1 tab PO DAILY Qty: 90 1RF clopidogrel 75 mg tablet 75 mg PO DAILY Qty: 90 3RF tramadol 50 mg tablet 50 mg PO Q6H PRN (Reason: pain) Qty: 20 0RF metformin 500 mg tablet extended release 24 hr 500 mg PO DAILY losartan 100 mg tablet 100 mg PO DAILY lorazepam 1 mg tablet 1 mg PO BID PRN (Reason: anxiety) atorvastatin 40 mg tablet 40 mg PO DAILY cyanocobalamin (vitamin B-12) 500 mcg tablet 500 mcg PO DAILY metoprolol succinate 100 mg tablet extended release 24 hr 100 mg PO DAILY cetirizine 10 mg tablet 10 mg PO DAILY PRN (Reason: itch) multivitamin Tablet 1 tab PO DAILY cholecalciferol (vitamin D3) 50 mcg (2,000 unit) capsule 50 mcg PO DAILY (DME) left wrist splint See Rx Instructions .Route .MEDSUPPLY Qty: 1 0RF Rx Instructions: As directed Interventions: ED Discharge Assessment Last Done: 05/09/25 06:34 Discharge Date/Time: 05/09/25 07:19 Print Language: Lao
[2025-05-09 06:34] VITALS: BP 142/64; PULSE 79; RESP 19; TEMP 36.5; O2SAT 98
== END 2025-05-09 07:19 | disposition home or self-care (01) ==
PROVIDERS: Emergency Provider Emergency Medicine; PCP Family Medicine
DX: R06.00 Dyspnea, unspecified (principal); R14.0 Abdominal distension (gaseous); I10 Essential (primary) hypertension; Z87.19 Personal history of other diseases of the digestive system; Z79.899 Other long term (current) drug therapy
CPT/HCPCS: 36415; 71045; 80053; 84484; 85025; 87502; 87635; 93005; 99283; 99285

== ENCOUNTER → 2025-05-09 00:10 | Outpatient (BNV) | payer OTHER, SELFPAY | PROVIDERS: Emergency Provider Emergency Medicine; PCP Family Medicine; Visit Provider Internal Medicine Cardiovascular Disease | DX: R06.02 Shortness of breath (principal) | CPT/HCPCS: 93010 ==

== ENCOUNTER → 2025-05-09 00:21 | Outpatient (BNV) | payer OTHER, SELFPAY | PROVIDERS: Emergency Provider Emergency Medicine; PCP Family Medicine; Visit Provider Radiology Diagnostic Radiology | DX: R06.00 Dyspnea, unspecified (principal) | CPT/HCPCS: 71045 ==

== ENCOUNTER 2025-05-23 08:37 | Outpatient (REF) | payer OTHER, SELFPAY ==
--- OUTSIDE RECORDS SUMMARY | 2025-05-23 10:00 | XMS_ITS | Encounter Summary ---
Author Organization [employer] Address [address] [facility] 7t [place] [address] Care Team Providers Care Animal Care Worker Name Role Phone Xuan Mckeon MD Primary Care Provider [phone] Yariel Schmid PharmD Unavailable [phone] Reason for Visit * Reason Onset Date Comments Lab Orders 05/22/2025 Encounter Details Date Type Department Care Team (Late st Contact Info) Description 05/22/2025 Telephone [facility] [address], [place] [phone] Xuan Mckeon MD [address] [place] [address] Lab Orders Social History Tobacco Use Types Packs/Day Years Used Date Smoking Tobacco: Never Passive Smoke Exposure: Never Smokeless Tobacco: Never Alcohol Use Standard Drinks/Week Comments Never 0 (1 standard drink = 0.6 oz pur e alcohol) Depression Answer Date Recorded Patient Health Questionnaire-9 Score 0 05/15/2025 Patient Health Questionnaire-9 Score 0 05/15/2025 Last PHQ-9: Questionnaire Data Not on file 0 05/15/2025 Housing Stability Answer Date Recorded What is [...] Answer Date Recorded Patient Health Questionnaire-2 Score 0 05/15/2025 Internet Access Answer Date Recorded Internet Access Q1 Yes 05/30/2024 Internet Access Q2 Not on file 05/30/2024 Comments No Sex and Gender Information Value Date Recorded Sex Assigned at Female 07/06/2022 10:14 AM EDT Legal Sex Female 10:14 AM EDT Gender Identity Female 07/06/2022 10:14 AM EDT Sexual Orientation Choose not to disclose 2021 10:14 AM EDT documented as of this encounter Miscellaneous Notes * Addendum Note - Babak Chung RN - 05/22/2025 1:17 PM EDTAddended by: BABAK CHUNG on: 05/22/2025 01:17 PM Modules accepted: Orders * Telephone Encounter - Babak Chung RN - 05/22/2025 1:14 PM EDT Telephone call to pt via [facility] [phone]. Pt needs [facility] for [facility] at [address] [place] [address]. Placed order per protocol. Pt verbalized understanding. * Telephone Encounter - Jagruti Rios - 05/22/2025 12:34 PM EDT Patient walked in requesting lab for TB - need for adult program documented in this encounter Plan of Treatment Upcoming Encounters Date Type Department Care Team ([facility] Contact Info) Description 05/30/2025 9:00 AM EDT Medication Management [facility] [address] [place] [address] [place] [address] Yariel Schmid, [place] [address] 06/28/2025 9:00 AM EDT Office Visit [facility] [address] [place] [address] Xuan Mckeon MD [address] [facility] [place] [address] Scheduled Orders Name Type Priority Associated Diagnoses Orde r Schedule T-SPOT .TB Lab Routine Screening for tuberculosis Expected: 05/22/2025 (Approximate), Expires: 05/22/2026 documented as of this encounter Goals Goal Patient Goal Type Associated Problems Recent Progress Patient-Stated? Author Blood Pressure < 140/90 Blood Pressure 120/84( 025 10:48 AM EDT) No Yariel Schmid, Leelee documented as of this encounter Visit Diagnoses Diagnosis Screening for tuberculosis Screening examination for pulmonary tuberculosis documented in this encounter Additional Health Concerns Assessment Noted Time PHQ-9 Depression Total Score: 0 05/15/20 25 10:49 AM EDT documented as of this encounter Care Teams Animal Care Worker Relationship Specialty Start Date End Date Xuan Mckeon MD [place] [address] PCP - General Family Medicine 09/20/20 Yariel Schmid, PharmD [facility] [place] [address] Pharmacist Internal Medicine 11/23/22 documented as of this encounter
--- OUTSIDE RECORDS SUMMARY | 2025-05-23 10:00 | XMS_ITS | Encounter Summary ---
Author Organization [employer] Address [address] [facility] 7t [place] [address] Care Team Providers Care Overedge Sewer Name Role Phone Xuan Mckeon MD Primary Care Provider [phone] Yariel Schmid PharmD Unavailable [phone] Reason for Visit * Reason Comments Med Refill Encounter Details Date Type Department Care Team ([facility] st Contact Info) Description 09/08/2023 Refill [facility] 230 [place], [place] [phone] Xuan Mckeon MD 230 [place], [place] [phone] Other specified anxiety disorders Social History Tobacco [...] Care Team (Late st Contact Info) Description 05/30/2025 9:00 AM EDT Medication Management [facility] [address] [place] [phone] Yariel Schmid PharmD [address] [place] [address] 06/28/2025 9:00 AM EDT Office Visit [facility] [address] [place] [address] Xuan Mckeon MD [address] [place] [address] documented as of this encounter Goals Goal Patient Goal Type Associated Problems Recent Progress Patient-Stated? Author Blood Pressure < 140/90 Blood Pressure 120/84( 025 10:48 AM EDT) No Yariel Schmid PharmD documented as of this encounter Visit Diagnoses Diagnosis Other specified anxiety disorders documented in this encounter Additional Health Concerns Assessment Noted Time PHQ-9 Depression Total Score: 4 12/18/19 23 10:48 AM EDT documented as of this encounter Care Teams Overedge Sewer Relationship Specialty Start Date End Date Xuan Mckeon MD [address] [place] [phone] PCP - General Family Medicine 09/20/20 Yariel Schmid PharmD [address] [place] [address] Pharmacist Internal Medicine 11/23/22 documented as of this encounter
--- OUTSIDE RECORDS SUMMARY | 2025-05-23 10:00 | XMS_ITS | Clinical Summary ---
Author Organization [facility] Address [id number] [place] [id number] Care Team Providers Care Awning Spreader Name Role Phone Unavailable Primary Care Provider [...] - Td or Tdap) 09/25/2023 09/25/2013, 11/05/2001 Depression Screening 09/06/2024 COVID-19 Vaccine ( season) 2025 Influenza Vaccine (#1) 2025 5, 07/25/2014, 05/19/2013, [...]
--- OUTSIDE RECORDS SUMMARY | 2025-05-23 10:00 | XMS_ITS | Encounter Summary ---
Author Organization [employer] Address [address] [facility] [address] 7t [place] [address] Care Team Providers Care Weight Clerk Name Role Phone Xuan Mckeon MD Primary Care Provider [phone] Yariel Schmid PharmD Unavailable [phone] Encounter Details Date Type Department Care Team ([facility] st Contact Info) Description 12/24/2023 Orders Only [facility] 230 [place], [place] [phone] Xuan Mckeon MD 230 [place], [place] [phone] Dermatitis (Primary Dx) Social History Tobacco Use [...] Team ([facility] Contact Info) Description 05/30/2025 9:00 AM EDT Medication Management [facility] [address] [place] [address] Yariel Schmid, PharmD [address] [place] [address] 06/28/2025 9:00 AM EDT Office Visit [facility] [address] [place] [address] Xuan Mckeon MD [address] [place] [address] documented as of this encounter Goals Goal Patient Goal Type Associated Problems Recent Progress Patient-Stated? Author Blood Pressure < 140/90 Blood Pressure 120/84( 025 10:48 AM EDT) No Yariel Schmid, PharmD documented as of this encounter Visit Diagnoses Diagnosis Dermatitis- Primary Contact dermatitis and other eczema, due to unspecified cause documented in this encounter Additional Health Concerns Assessment Noted Time PHQ-9 Depression Total Score: 4 12/18/19 23 10:48 AM EDT documented as of this encounter Care Teams Weight Clerk Relationship Specialty Start Date End Date Xuan Mckeon MD [address] [place] [address] PCP - General Family Medicine 09/20/20 Yariel Schmid, PharmD 230 [place] [address] Pharmacist Internal Medicine 11/23/22 documented as of this encounter
--- OUTSIDE RECORDS SUMMARY | 2025-05-23 10:00 | XMS_ITS | Encounter Summary ---
Author Organization [employer] Address [address] [facility] 7t [place] [address] Care Team Providers Care Harvest Supervisor Name Role Phone Xuan Mckeon MD Primary Care Provider [phone] Yariel Schmid PharmD Unavailable [phone] Reason for Visit * Reason Comments Med Refill Encounter Details Date Type Department Care Team ([facility] st Contact Info) Description 02/23/2025 Refill [facility] 230 [place], [place] [phone] Xuan Mckeon MD [address] [place], [place] [phone] Other specified anxiety disorders Social History Tobacco [...] Description 05/30/2025 9:00 AM EDT Medication Management [address] [address] Yariel Schmid, PharmD [address] [place] [address] 06/28/2025 9:00 AM EDT Office Visit [facility] [address] [place] [address] Xuan Mckeon MD [address] [place] [address] documented as of this encounter Goals Goal [...] documented as of this encounter Care Teams Harvest Supervisor Relationship Specialty Start Date End Date Xuan Mckeon MD [address] [place] [address], [place] [address] PCP - General Family Medicine 09/20/20 Yariel Schmid, Leelee [address] [place] [address] Pharmacist Internal Medicine 11/23/22 documented as of this encounter
--- OUTSIDE RECORDS SUMMARY | 2025-05-23 10:00 | XMS_ITS | Encounter Summary ---
Author Organization [employer] Address [address] [facility] 7t [place] [address] Care Team Providers Care Fisher Quahog Name Role Phone Xuan Mckeon MD Primary Care Provider [phone] Yariel Schmid PharmD Unavailable [phone] Reason for Visit * Reason Comments Med Refill Encounter Details Date Type Department Care Team ([facility] st Contact Info) Description 10/05/2023 Refill [facility] 230 [place], [place] [phone] Xuan Mckeon MD 230 [place], [place] [phone] Vitamin B12 deficiency Social History Tobacco Use [...] Description 05/30/2025 9:00 AM EDT Medication Management [facility] [address] [place] [address] Yariel Schmid, PharmD [address] [place] [address] 06/28/2025 9:00 AM EDT Office Visit [facility] [address] [place] [address] Xuan Mckeon MD [address] [place] [address] documented as of this encounter Goals Goal [...] documented as of this encounter Care Teams Fisher Quahog Relationship Specialty Start Date End Date Xuan Mckeon MD [address] [place] [address] PCP - General Family Medicine 09/20/20 Yariel Schmid, PharmD [address] [place] [address] Pharmacist Internal Medicine 11/23/22 documented as of this encounter
--- OUTSIDE RECORDS SUMMARY | 2025-05-23 10:00 | XMS_ITS | Encounter Summary ---
Author Organization [employer] Address [address] [facility] 7t [place] [address] Care Team Providers Care Assistant Professor Of Drama Name Role Phone Xuan Mckeon MD Primary Care Provider [phone] Yariel Schmid PharmD Unavailable [phone] Reason for Visit * Reason Comments Med Refill Encounter Details Date Type Department Care Team (Late Contact Info) Description 03/18/2023 Refill [facility] [address] [place], [place] [phone] Xuan Mckeon MD [address] [place] [address] Other specified anxiety disorders Social History Tobacco [...] Department Care Team (Late Contact Info) Description 05/30/2025 9:00 AM EDT Medication Management [facility] [address] [place], [place] [phone] Yariel Schmid, PharmD [address] [place], [place] [phone] 06/28/2025 9:00 AM EDT Office Visit [facility] [address] [facility] [address] Xuan Mckeon MD [address] [place] [address] documented as of this encounter Goals Goal [...] documented as of this encounter Care Teams Assistant Professor Of Drama Relationship Specialty Start Date End Date Xuan Mckeon MD [address] [place] [address] PCP - General Family Medicine 09/20/20 Yariel Schmid, PharmD [address] [place] [phone] Pharmacist Internal Medicine 11/23/22 documented as of this encounter
--- OUTSIDE RECORDS SUMMARY | 2025-05-23 10:00 | XMS_ITS | Encounter Summary ---
Author Organization [employer] Address [address] [place] [address] Care Team Providers Care Farm Or Ranch Animal Caretaker Name Role Phone Xuan Mckeon MD Primary Care Provider Yariel Schmid PharmD Unavailable [phone] Reason for Visit * Reason Onset Date Comments Appointment Request 08/23/2024 Encounter Details Date Type Department Care Team ([facility] st Contact Info) Description 08/23/2024 Telephone [facility] [address] [place] [address] Xuan Mckeon MD [address] [place] [address] Appointment Request Social History Tobacco Use Types [...] today's CDTM visit. Please contact pt at [phone]. (Maori Speaker) documented in this encounter Plan of Treatment Upcoming Encounters Date Type Department Care Team ([facility] st Contact Info) Description 05/30/2025 9:00 AM EDT Medication Management [facility] [address] [place] [phone] Yariel Schmid, PharmD [address] [place] [phone] 06/28/2025 9:00 AM EDT Office Visit [facility] [address] [place] [address] [phone] Xuan Mckeon MD [address] [place] [address] documented as of this encounter Goals Goal [...] documented as of this encounter Care Teams Farm Or Ranch Animal Caretaker Relationship Specialty Start Date End Date Xuan Mckeon MD [address] [place] [address] PCP - General Family Medicine 09/20/20 Yariel Schmid, PharmD [address] [place] [address] Pharmacist Internal Medicine 11/23/22 documented as of this encounter
--- OUTSIDE RECORDS SUMMARY | 2025-05-23 10:00 | XMS_ITS | Encounter Summary ---
Author Organization [employer] Address [address] [facility] [address] [place] [address] Care Team Providers Care Gyro Compass Tester Name Role Phone Xuan Mckeon MD Primary Care Provider [phone] Yariel Schmid PharmD Unavailable [phone] Reason for Visit * Reason Comments Med Refill Encounter Details Date Type Department Care Team ([facility] Contact Info) Description 10/06/2022 Refill [facility] [address] [place], [place] [phone] Ofelia Akhtar ANP [address] [place] [address] Other specified anxiety disorders Social History Tobacco [...] Upcoming Encounters Date Type Department Care Team ([facility] Contact Info) Description 05/30/2025 9:00 AM EDT Medication Management [facility] MED[facility]INE [address] [place], [place] [phone] Yariel Schmid, PharmD [address] [place] [address] 06/28/2025 9:00 AM EDT Office Visit [facility] MED[facility]INE [address] [place], [place] [phone] Xuan Mckeon MD [address] [place], [place] [phone] documented as of this encounter Visit Diagnoses Diagnosis Other specified anxiety disorders documented in this encounter Care Teams Gyro Compass Tester Relationship Specialty Start Date End Date Xuan Mckeon MD [address] [place] [address] [phone] PCP - General Family Medicine 09/20/20 Yariel Schmid, PharmD [address] [place] [address] [phone] Pharmacist Internal Medicine 11/23/22 documented as of this encounter
--- OUTSIDE RECORDS SUMMARY | 2025-05-23 10:00 | XMS_ITS | Encounter Summary ---
Author Organization [employer] Address [address] [facility] [address] [facility] [address] [place] [address] Care Team Providers Care Marble Setter Name Role Phone Xuan Mckeon MD Primary Care Provider [phone] Yariel Schmid PharmD Unavailable [phone] Encounter Details Date Type Department Care Team ([facility] st Contact Info) Description 10/22/2023 Orders Only [facility] [address] [place], [place] [phone] Xuan Mckeon MD [address] [place], [place] [phone] Social History Tobacco Use Types Packs/Day Years [...] Description 05/30/2025 9:00 AM EDT Medication Management [facility] [address] [place] [phone] Yariel Schmid PharmD [address] [place] [phone] 06/28/2025 9:00 AM EDT Office Visit [facility] [address] [place] [phone] Xuan Mckeon MD [address] [place] [phone] documented as of this encounter Goals Goal [...] documented as of this encounter Care Teams Marble Setter Relationship Specialty Start Date End Date Xuan Mckeon MD [address] [place] [phone] PCP - General Family Medicine 09/20/20 Yariel Schmid PharmD [address] [place] [phone] Pharmacist Internal Medicine 11/23/22 documented as of this encounter
--- OUTSIDE RECORDS SUMMARY | 2025-05-23 10:00 | XMS_ITS | Encounter Summary ---
Author Organization [employer] Address [address] [facility] [address] [facility] [address] [place] [address] Care Team Providers Care Media Coordinator Name Role Phone Xuan Mckeon MD Primary Care Provider [phone] Yariel Schmid PharmD Unavailable [phone] Reason for Visit * Reason Comments Med Refill Encounter Details Date Type Department Care Team ([facility] st Contact Info) Description 03/06/2024 Refill [facility] [address] [place], [place] [phone] Ofelia Akhtar, ANP [address] [place], [place] [phone] Other specified anxiety disorders Social History Tobacco [...] Description 05/30/2025 9:00 AM EDT Medication Management [facility] [address] [place] [phone] Yariel Schmid PharmD [address] [place] [address] 06/28/2025 9:00 AM EDT Office Visit [facility] [address] [place] [phone] Xuan Mckeon MD [address] [place] [address] documented as of this encounter Goals Goal [...] documented as of this encounter Care Teams Media Coordinator Relationship Specialty Start Date End Date Xuan Mckeon MD [address] [place] [phone] PCP - General Family Medicine 09/20/20 Yariel Schmid PharmD [address] [place] [phone] Pharmacist Internal Medicine 11/23/22 documented as of this encounter
--- OUTSIDE RECORDS SUMMARY | 2025-05-23 10:00 | XMS_ITS | Clinical Summary ---
Author Organization [employer] Address [address] [facility] [address] [place] [address] Care Team Providers Care Oil Heat Technician Name Role Phone Xuan Mckeon MD Primary Care Provider [phone] Yariel Schmid PharmD Unavailable [phone] Allergies Active Allergy Reactions Criticality Noted Date [...] Active Alcohol Swabs (Alcohol Prep) 70 % padsIndications :Type 2 diabetes mellitus without complication, without long-term current use of insulin ([facility]) USE TWICE DAILY 100 each 11 10/18/19 24 Active metFORMIN XR (Glucophage-XR) 500 MG 24 hr tablet TAKE 1 TABLET BY MOUTH EVERY MORNING 90 tablet 3 06/05/20 24 Active metoprolol succinate XL (Toprol XL) 100 MG 24 hr tabletIndicatio ns:Primary hypertension Take 1 tablet by mouth once daily at bedtime 90 tablet 3 06/28/20 24 Active fexofenadine (Tanisha) 180 MG tabletIndicatio ns:Urticaria TAKE 1 TABLET BY MOUTH EVERY DAY NEEDED FOR ALLERGIES 90 tablet 07/06/20 24 Active FREESTYLE LITE test stripIndication s:Type 2 diabetes mellitus without complication, without long-term current use of insulin ([facility]) TEST BLOOD SUGAR TWICE DAILY 100 strip 11 08/29/20 24 Active TRUEplus Lancets 33G misc TEST BLOOD SUGAR TWICE DAILY 100 each 11 09/15/19 25 Active cyanocobalamin (Vitamin B-12) 500 MCG tabletIndicatio ns:Vitamin B12 deficiency TAKE 1 TABLET BY MOUTH EVERY MORNING 90 tablet 3 09/26/19 25 Active atorvastatin (Lipitor) 40 MG tabletIndicatio ns:Dyslipidemia TAKE 1 TABLET BY MOUTH AT BEDTIME 90 tablet 3 10/24/19 25 Active D3 Super Strength 50 MCG (2000 UT) capsuleIndicati ons:Vitamin deficiency TAKE 1 CAPSULE BY MOUTH EVERY MORNING 90 capsule 3 10/24/19 25 Active hydrOXYzine pamoate (Vistaril) 25 MG capsuleIndicati ons:Urticaria TAKE 1 CAPSULE BY MOUTH AT BEDTIME NEEDED FOR ITCHING 30 capsule 1 11/03/19 25 Active losartan (Cozaar) 100 MG tablet TAKE 1 TABLET BY MOUTH EVERY MORNING 90 tablet 3 11/24/19 25 Active spironolactone- hydroCHLOROthia zide (Aldactazide) 25-25 MG tablet Take 1 tablet by mouth Once per day. 01/11/20 25 Active cyclobenzaprine (Flexeril) 10 MG tabletIndicatio ns:Fibromyalgia TAKE 1 TABLET BY MOUTH ONE OR TWO TIMES DAILY NEEDED FOR MUSCLE SPASMS 30 tablet 1 01/15/20 25 Active LORazepam (Ativan) 1 MG tabletIndicatio ns:Other specified anxiety disorders Take 1 tablet (1 mg) by mouth if needed in the morning and at bedtime for anxiety. Do not start before March 06, 2025. 56 tablet 5 03/06/20 25 Active pantoprazole (ProtoNix) 40 MG EC tablet TAKE 1 TABLET BY MOUTH EVERY DAY 90 tablet 05/02/20 25 Active albuterol 108 (90 Base) MCG/ACT inhaler Inhale 2 puffs every 4 (four) hours if needed for wheezing. 18 g 05/15/20 25 026 Active EPINEPHrine (Epipen) 0.3 MG/0.3ML injection syringe Inject 0.3 mL (0.3 mg) as directed 1 (one) time if needed for anaphylaxis for up to 1 dose. Inject into upper leg. Call 911 after use. 1 each 1 05/15/20 25 Active pantoprazole (ProtoNix) 40 MG EC [...] lab Allergic reaction 09/18/2024 Assessment & Plan (05/15/2025 12:41 PM EDT): -Pt had history of multiple [...] has already been seen and treated by risk specialist. She states she could not complete immunotherapy due to severe allergic reaction. Assessment & Plan (01/14/2025 5:16 PM EDT): [...] has already been seen and treated by risk specialist. She states she could not complete [...] has already been seen and treated by risk specialist. She states she could not complete [...] Plan (12/17/2022 11:27 AM EDT): Seen by Child And Adolescent Psychologist, Dr. Karimi, on 11/26/22. Reported exertional Cheat Pain Stress Test was ordered -will check status Chronic low back pain 10/04/2022 Assessment & Plan (10/04/2022 5:48 AM EST): Continue judicious use of APAP and cyclobenzaprine Strain of trapezius muscle 09/29/2022 Primary hypertension 09/29/2022 Assessment & Plan (05/15/2025 5:55 AM EDT): -Goal BP < 130/80 per ACC/AHA -BP not at goal today -Co-managed with senior customer service representative and PharmD. -pt advised to continue checking BP at home -senior customer service representative: Dr. Karimi, last visit in 12/06/24; exertional dyspnea. Possible evaluation with CTA or coronary angiography -normal Holter monitor and echo -continue working on lifestyle modifications -continue losartan 100 mg daily -continue metoprolol succinate 100 mg daily - start spironolactone - hctz 25-25 mg daily (history of hypokalemia on KCl supplement) as prescribed by sawyer cork slabs Previous Treatment: -discontinued HCTZ and replaced chlorthalidone. -d/c Amlodipine d/t leg swelling - continue monitoring home BP -Return for BP check in 3 weeks. If SBP > 140 at home and SBP > 150 at clinic, consider adding isosorbide mononitrate 30 mg daily or nifedipine 30 mg daily. Assessment & Plan (01/14/2025 5:13 PM EDT): -Goal BP <140/90 per JNC-8, < 130/80 per ACC/AHA -BP not at goal today -Co-managed with senior customer service representative and PharmD. -pt advised to continue checking BP at home -senior customer service representative: Dr. Karimi, last visit in 12/06/24; exertional dyspnea. Possible evaluation with CTA or coronary angiography -normal Holter monitor and echo -continue working on lifestyle modifications -continue losartan 100 mg daily -continue metoprolol succinate 100 mg daily - start spironolactone - hctz 25-25 mg daily (history of hypokalemia on KCl supplement) as prescribed by sawyer cork slabs Previous Treatment: -discontinued HCTZ and replaced chlorthalidone. [...] -BP not at goal today -Co-managed with senior customer service representative and PharmD. -pt advised to continue checking BP at home -senior customer service representative: Dr. Karimi, last visit in 11/26/22; exertional [...] -BP not at goal today -Co-managed with senior customer service representative and PharmD. -pt advised to continue checking BP at home -senior customer service representative: Dr. Karimi, last visit in 11/26/22; exertional [...] -BP not at goal today -Co-managed with senior customer service representative and PharmD. -pt advised to continue checking BP at home -senior customer service representative: Dr. Karimi, last visit in 11/26/22; exertional [...] < 130/80 per ACC/AHA - co-managed with senior customer service representative and PharmD. -pt advised to continue checking BP at home -senior customer service representative: Dr. Karimi, last visit in 11/26/22; exertional [...] < 130/80 per ACC/AHA - co-managed with senior customer service representative and PharmD. -pt advised to continue checking BP at home -senior customer service representative: Dr. Karimi, last visit in 11/26/22; exertional [...] advised to continue checking BP at home -senior customer service representative: Dr. Karimi, last visit in 11/26/22; exertional [...] advised to continue checking BP at home -senior customer service representative: Dr. Karimi, last visit in 07/06/22; concerns [...] (transient ischemic attack) 09/29/2022 Assessment & Plan (05/15/2025 12:44 PM EDT): - seen in ED on 07/03/22 - Started on Plavix by senior customer service representative; ASA was discontinued due to GI bleed - Continue statin, clopidogrel, and losartan - Continue working on lifestyle modification / risk factor management Assessment & Plan (01/14/2025 5:04 PM EDT): - seen in ED on 07/03/22 - Started on Plavix by senior customer service representative; ASA was discontinued due to GI bleed - Continue statin, clopidogrel, and losartan - Continue working on lifestyle modification / risk factor management Assessment & Plan (05/30/2024 11:03 AM EDT): - seen in ED on 07/03/22 - Started on Plavix by senior customer service representative; ASA was discontinued due to GI bleed - Continue statin, clopidogrel, and losartan - Continue working on lifestyle modification / risk factor management Assessment & Plan (11/30/2023 4:38 AM EDT): - seen in ED on 07/03/22 - Started on Plavix by senior customer service representative; ASA was discontinued due to GI bleed - Continue statin, clopidogrel, and losartan - Continue working on lifestyle modification / risk factor management Assessment & Plan (12/17/2022 11:23 AM EDT): - seen in ED on 07/03/22 - Started on Plavix by senior customer service representative; ASA was discontinued due to GI bleed - Continue statin, clopidogrel, and losartan - Continue working on lifestyle modification / risk factor management Assessment & Plan (10/04/2022 5:51 AM EST): - seen in ED on 07/03/22 - Started on Plavix by senior customer service representative; ASA was discontinued due to GI bleed - Continue statin, clopidogrel, and losartan - Continue working on lifestyle modification / risk factor management Type 2 diabetes mellitus 03/28/2020 Assessment & Plan (05/15/2025 12:50 PM EDT): - A1C 6.4% on 05/15/25, the same from 6.4% on 01/11/25 -continue metformin ER 500 mg daily, consider increasing if glycemic control does not improve with lifestyle modifications. -continue working on lifestyle modifications -Last lipid profile: 11/08/24 -Last microalbumin test: 06/08/24, no microalbuminuria -Last foot exam: 05/30/24 -Last comprehensive eye exam: -IZ: due for COVID booster & Influenza for the season Assessment & Plan (01/14/2025 5:15 PM EDT): [...] left adrenal cyst - repeating CT by sawyer cork slabs Assessment & Plan (06/14/2023 3:20 PM EDT): [...] of lorazepam Dyslipidemia 05/06/2018 Assessment & Plan (05/15/2025 12:51 PM EDT): Current medication: Atorvastatin 40 mg at bedtime Last lipid profile: 3/05/25 Pt is recommended to be on high-intensity statin therapy according to guideline. Pt is hesitant to increasing its dose because of its potential side effect. Continue working on lifestyle modifications Check lipid profile and liver function test at least once a year Assessment & Plan (01/14/2025 5:16 PM EDT): [...] describes 3 episodes, last on treated at [facility] on 04/2012 Assessment & Plan (10/17/2024 [...] Encounters Date Type Department Care Team Description 05/22/[address] [address] Xuan Mckeon MD Lab Orders 05/15/2025 10:30 AM EDT Office Visit [address] [address] Xuan Mckeon MD Type 2 diabetes mellitus without complication, without long-term current use of insulin ([facility]) (Primary Dx); Primary hypertension; Dyslipidemia; Obstructive sleep apnea syndrome; TIA (transient ischemic attack); Allergic reaction, sequela 05/15/2025 Travel 05/14/[address] [address] Xuan Mckeon MD chart prep 05/09/2025 Orders Only [facility] External Provider, [facility] 05/01/2025 Refill [facility] [address] [place] [address] Xuan Mckeon MD 03/21/[address] [address] Xuan Mckeon MD may recall 03/02/2025 Refill [facility] [address] [place] [address] Xuan Mckeon MD Other specified anxiety disorders 02/23/2025 Refill [facility] [address] [place] [address] Xuan Mckeon MD Other specified anxiety disorders 02/20/2025 Telephone [facility] [address] [place] [address] Xuan Mckeon MD April recall from Last 3 Months Immunizations Immunization Administration [...] Sign Reading Time Taken Comments Blood Pressure 120/84 05/15/2025 10:48 AM EDT Pulse 64 05/15/2025 10:48 AM EDT Temperature 36.1 C (96.9 F) 05/15/2025 10:48 AM EDT Respiratory Rate 15 05/15/2025 10:48 AM EDT Oxygen Saturation 99% 05/15/2025 10:48 AM EDT Inhaled Oxygen Concentration - - Weight 76.4 kg (168 lb 6.4 oz) 05/15/2025 10:48 AM EDT Height 154.9 cm (5' 1 ) 05/15/2025 10:48 AM EDT Body Mass Index 31.82 05/15/2025 10:48 AM EDT Plan of Treatment Upcoming Encounters Date Type Department Care Team (Late st Contact Info) Description 05/30/2025 9:00 AM EDT Medication Management [facility] [address] [place] [address] Yariel Schmid, PharmD [address] [place] [address] 06/28/2025 9:00 AM EDT Office Visit [facility] [address] [place] [address] Xuan Mckeon MD [address] [place] [address] Health Maintenance Due Date Last Done Comments [...] 11/05/2001 Dental X-Ray: Full Mouth 01/11/2024 01/09/2021 FOBT 01/11/2025 01/12/2024, 01/03/2024 Eye Exam 02/23/2025 02/23/2023, 06/10/2015, 01/31/2015, Additional history exists COVID-19 Vaccine ( season) 2025 07/23/2021, 12/18/2020 Influenza Vaccine (#1) 2025 , 06/25/2023, 06/01/2022, Additional history exists Diabetes: Foot Exam 05/30/2025 05/30/2024, 05/30/2024, 05/30/2024, Additional history exists Diabetes: Hemoglobin A1C 08/14/2025 025, 01/11/2025, 10/10/2024, Additional history exists Alcohol/Substance Use Screening 09/18/2025 09/18/2024 Diabetes: Urine Protein Screening 11/08/2025 11/08/2024, 06/08/2024, 06/16/2023, Additional history exists Lipid Panel 11/08/2025 11/08/2024, 1011/2023, 06/16/2023, Additional history exists Depression Screening 05/15/2026 05/15/2025, 05/15/20 SDOH Screening 05/15/2026 05/15/2025 Tobacco Screening 05/15/2026 05/15/2025 Mammogram 2026 2024, 11/05, 05/19/2019, Additional history [...] 025 10:48 AM EDT) No Yariel Schmid, CristóbalD Procedures Procedure Name Priority Date/Time Associated Diagnosis Comments POCT GLYCOSYLATED HEMOGLOBIN (HGB A1C) Routine 05/15/2025 10:49 AM EDT Type 2 diabetes mellitus without complication, without long-term current use of insulin ([facility]) POCT GLUCOSE Routine 05/15/2025 10:47 AM EDT Type 2 diabetes mellitus without complication, without long-term current use of insulin ([facility]) COVID-19 ID NOW (LOEA) Routine 05/09/2025 3:07 AM EDT INFLUENZA A B2 ID NOW (OLEA) Routine 05/09/2025 3:07 AM EDT XR CHEST 1 VIEW Routine 05/09/2025 1:[address] ABDOMEN WO CONTRAST Routine 12:38 PM EDT ALBUMIN, RANDOM URINE W/CREATININE Routine 11/08/2024 9:12 [...] * (ABNORMAL) POCT glycosylated hemoglobin (Hgb A1c) (05/15/2025 10:49 AM EDT) Hemoglobin A1C 6.4(A) 4.0 - 5.7 % QC Media Lot # [id number] Lot# Expiration Date ,884,032 Blood Capillary blood specimen / Unknown 05/15/2025 10:49 AM EDT Xuan Mckeon MD POINT OF CARE TEST ENTER/EDIT OR DERABLES Final Result * POCT glucose manually resulted (05/15/2025 10:47 AM EDT) Glucose Blood, POC 154 60 - 200 mg/dL QC Media Lot # [id number] Lot# Expiration Date 585,637 Blood Capillary blood specimen / Unknown 05/15/2025 10:47 AM EDT Xuan Mckeon MD POINT OF CARE TEST ENTER/EDIT OR DERABLES Final Result * Influenza A B2 ID NOW (Olea) (05/09/2025 3:07 AM EDT) IDNOW SERIAL# [id number] [facility] Influenza A Negative Negative [facility] Influenza B2 Negative Negative [facility] Influenza A B2 Note See Note [facility] Comment:The Olea ID NOW In fluenza A B2 test is used for thequalitative detection of influenza A and B from patientswith signs and symptoms of respiratory infection.Negative results do not preclude influenza virus infectionand should not be used as the sole basis for diagnosis,treatment or other patient management decisions.There is a risk of false negative results due to thepresence of variants in the viral targets of the assay, lowlevels of virus in the specimen and co- infection withRespiratory Syncytial Virus. 05/09/2025 3:07 AM EDT 05/09/2025 3:12 AM EDT Generic External Data Provider LAB MICROBIOLOGY - GENERAL ORDERABLES Final Result [facility] [address] [place] [phone] * COVID-19 ID NOW (OLEA) (05/09/2025 3:07 AM EDT) IDNOW SERIAL# [id number] [facility] COVID-19 TEST Negative Negative [facility] COVID-19 NOTE See Note [facility] Comment: Results are for the identification of SARS-CoV2 RNA. TheSARS-CoV2 RNA is generally detectable in respiratory samplesduring the acute phase of infection. Positive results areindicative of the presence of SARS-CoV-2 RNA; clinicalcorrelation with patient history and other diagnosticinformation is necessary to determine patient infectionstatus. Positive results do not rule out bacterial infectionor co- infection with other viruses.Testing facilities within the [facility] and itsterritories are required to report all positive results tothe appropriate public health authorities.Negative results should be treated as presumptive and, ifinconsistent with clinical signs and symptoms or necessaryfor patient management, should be tested with differentauthorized or cleared molecular tests. Negative results donot preclude SARS-CoV2 RNA infection and should not be usedas the sole basis for patient management decisions. Negativeresults should be considered in the context of a patient'srecent exposures, history and the presence of clinical signsand symptoms consistent with COVID-19.This test has been authorized by the FDA under an EmergencyUse Authorization (EUA) for use by authorized laboratories.Testing performed on the [employer] NOW utilizing NAAT. 05/09/2025 3:07 AM EDT 05/09/2025 3:12 AM EDT us Generic External Data Provider LAB MOLECULAR SHENA GNOSTICS ORDERABLES Final Result [facility] [address] [place] [phone] * XR Chest 1 View (05/09/2025 1:13 AM EDT) Anatomical Region Laterality Modality Chest Radiographic Tracie ging 05/09/2025 1:13 AM EDT Narrative 05/09/2025 1:15 AM EDT [address] [address] XRay Report Signed Patient: Che Person MR #: [id number] : 1950 Acct:[id number] Age/Sex: 74 / F ADM Date: 05/09/25 Loc: HO.ED Attending Dr: Ordering Physician: Generic ED Physician Date of Service: 05/09/25 Procedure(s): XR chest 1V Accession Number(s): [id number] cc: Generic ED Physician; Xuan Mckeon MD Reason for Exam: dyspnea CLINICAL HISTORY: dyspnea EXAM: One view chest x-ray COMPARISON: None FINDINGS: Normal cardiac, mediastinal, and hilar contours. Normal heart size. No pleural effusion or pneumothorax. Lungs are clear. No acute bone finding. IMPRESSION: 1. No acute cardiopulmonary process demonstrated. This document has been electronically signed by: Seth Greco MD on 05/09/2025 01:13:18 Dictated By: Seth Greco MD Signed By: <Electronically signed by Seth Greco MD in OV> 05/09/25113 DD/ 2 TD/TT: 05/09/25 011 Corporate Manager: Procedure Note Donotuseinterpreter, Image - 05/09/[address] [address] XRay Report Signed Patient: Greta PersonR #: [id number] : 1950cct:[id number] Age/Sex: 74 / FADM Date: 05/09/25 Loc: HO.ED Attending Dr: Ordering Physician: Generic ED Physician Date of Service: 05/09/25 Procedure(s): XR chest 1V Accession Number(s): [id number] cc: Generic ED Physician; Xuan Mckeon MD Reason for Exam: dyspnea CLINICAL HISTORY: dyspnea EXAM: One view chest x-ray COMPARISON: None FINDINGS: Normal cardiac, mediastinal, and hilar contours. Normal heart size. No pleural effusion or pneumothorax. Lungs are clear. No acute bone finding. IMPRESSION: 1. No acute cardiopulmonary process demonstrated. This document has been electronically signed by: Seth Greco MD on 05/09/2025 01:13:18 Dictated By: Seth Greco MD Signed By: <Electronically signed by Seth Greco MD in OV> 05/09/25113 DD/ 2 TD/TT: 05/09/25112 Corporate Manager: [facility] External Provider IMG XR PROCEDURES Edited Result - Final * CT abdomen w/o Contrast (03/08/2025 12:38 PM EDT) Anatomical Region Laterality Modality Body, Abdomen Computed Tomogra phy 03/08/2025 12:3 8 PM EDT Narrative 03/08/2025 1:57 PM EDT [address] [address] [address] Scan Report Signed Patient: Che ePrson MR #: [id number] : 1950 Acct:[id number] Age/Sex: 74 / F ADM Date: 03/08/25 Loc: HO.CT Attending Dr: Tate Gracia MD Ordering Physician: Tate Gracia MD Date of Service: 03/08/25 Procedure(s): CT abdomen wo IV con Accession Number(s): [id number] cc: Tate Gracia MD; Xuan Mckeon MD Report Number: [id number]: Total DLP = 293.00 mGy-cm EXAMINATION: CT [...] 03/08/25 1354 DD/ 1238 TD/TT: 03/08/25 1300 Corporate Manager: Procedure Note Donotuseinterpreter, Image - 03/08/[address] [address] [address] Scan Report Signed Patient: Jamal PersonBridgette #: [id number] : 1950cct:[id number] Age/Sex: 74 / FADM Date: 03/08/25 Loc: HO.CT Attending Dr: Tate Gracia MD Ordering Physician: Tate Gracia MD Date of Service: 03/08/25 Procedure(s): CT abdomen wo IV con Accession Number(s): [id number] cc: Tate Gracai MD; Xuan Mckeon MD Report Number: [id number]: Total DLP = 293.00 mGy-cm EXAMINATION: CT [...] 03/08/25 1354 DD/ 1238 TD/TT: 03/08/25 1300 Corporate Manager: [facility] External Provider IMG CT PROCEDURES Edited Result - Final * (ABNORMAL) Lipid Panel with Reflex to Direct LDL (11/08/2024 9:12 AM EST) Triglycerides 229(H) <150 mg/dL [facility] Comment:Desirable Triglyceri de: less than 150 mg/dLBorderline High Triglyceride 150-199 mg/dLHigh Triglyceride: 200-499 mg/dLVery High Triglyceride: greater than or equal to 5OO mg/dL Cholesterol 166 <200 mg/dL [facility] Comment:Desirable Cholestero l: less than 200 mg/dLBorderline High Cholesterol: 200-239 mg/dLHigh Cholesterol: greater than 239 mg/dL LDL Cholesterol Calculated 83 <100 mg/dL [facility] Comment:Desirable LDL: less than 100 mg/dLNear Optimal/Above Optimal LDL: 110- 129 mg/dLBorderline High LDL: 130-159 mg/dLHigh LDL: 160-189 mg/dLVery High LDL: greater than or equal to 190 mg/dL HDL Cholesterol 38(L) >40 mg/dL [facility] Comment:Desirable HDL: great er than 40 mg/dL Note: This HDL assay may give artificially low results in patients with liver disease. Blood 11/08/2024 9:12 AM EST 11/08/2024 11:25 AM EST Xuan Mckeon MD LAB BLOOD ORDERABLES Final Resul t Performing Organization Address [facility] de Phone Number [facility] [address] [place] [phone] * Albumin, Random Urine W/Creatinine (11/08/2024 9:12 AM EST) Creatinine, Urine 161.01 mg/dL [facility] Microalbumin Urine 6.0 mg/L [facility] Microalbum Creatinine Ratio Ur 3.7 <30 ug/mg cr [facility] Comment:Albumin/Creatinine R atio Reference Ranges: Normal: < 30 ug/mg creatinine Microalbuminuria: 30 - 300 ug/mg creatinineClinical Albuminuria: > 300 ug/mg creatinine Urine 11/08/2024 9:12 AM EST 11/08/2024 11:25 AM EST Xuan Mckeon MD LAB URINE ORDERABLES Final Resul t Performing Organization Address [facility] de Phone Number [facility] [address] [place] [phone] * BI Mammogram Screening Tomosynthesis Bilateral (2024 9:15 AM EDT) Anatomical Region Laterality Modality Breast Bilateral Mammography 2024 9:15 AM EDT Narrative 06/15/2024 7:13 PM EDT [facility] [address] [place] [address] Mammography Report Signed Patient: Che Person MR #: [id number] : 1950 Acct:[id number] Age/Sex: 74 / F ADM Date: 06/06/24 Loc: STEFFANIE Attending Dr: Xuan Mckeon MD Ordering Physician: Xuan Mckeon MD Results: 1Negative Date of Service: 06/06/24 Follow Up: 1 Year From Orig ina Mammogram Procedure(s): MM tomosynthesis screening BI Accession Number(s): [id number] cc: Xuan Mckeon MD EXAMINATION: MM SCREENING [...] in OV> 06/15/241909 DD/ 4 TD/TT: 06/06/24919 Corporate Manager: Procedure Note Donotuseinterpreter, Image - 06/15/2024 [facility] [address] [place] [address] Mammography Report Signed Patient: Jamal PersoncaMR #: [id number] : 1950cct:[id number] Age/Sex: 74 / FADM Date: 06/06/24 Loc: STEFFANIE Attending Dr: Xuan Mckeon MD Ordering Physician: Xuan Mckeon MDResults: 1Negative Date of Service: 06/06/24Follow Up: 1 Year From Orig inal Mammogram Procedure(s): MM tomosynthesis screening BI Accession Number(s): [id number] cc: Xuan Mckeon MD EXAMINATION: MM SCREENING [...] in OV> 06/15/241909 DD/ 4 TD/TT: 06/06/24919 Corporate Manager: Xuan Mckeon MD IMG BI PROCEDURES Edited Result - Final * FIT DNA/Cologuard Cancer Screening (01/12/2024) Pathologist [facility] Cologuard Cancer Screen Negative Stool Historical Provider HEALTH MAINTENANCE Final Result * Hm Diabetes Eye Exam (02/23/2023) [facility] Eye Exam Normal Normal, BIRADS 0 , BIRADS 1 , BIRADS 2, BIRADS 3 , BIRADS 4+ 02/23/2023 Historical Provider HEALTH MAINTENANCE Final Result * HEPATITIS C AB W/REFL TO HCV RNA, QN, PCR (10/23/2020 8:55 AM EST) HEPATITIS C ANTIBODY NON-REACT [facility] NON-REACT [facility] INDEX 0.01 <1.00 [facility] Comment: HCV antibody was non-reactive. There is no laboratory evidence of HCV infection. In most cases, no further action is required. However, if recent HCV exposure is suspected, a test for HCV RNA (test code 59594) is suggested. For additional information please refer to http://education.[employer].com/faq/SZJ85v4 (This link is being provided for informational/ educational purposes only.) 10/23/2020 8:55 AM EST us Xuan Mckeon MD HISTORICAL/NON ORDERABLE LABS Fi nal Result [facility] [address] from Last 3 Months or Most Recently Relevant to Health Maintenance Insurance [facility] USP OPTIONS [facility]O D-SNP[facility] Care Teams Oil Heat Technician Relationship Specialty Start Date End Date Xuan Mckeon MD [address] [place] [address] [phone] PCP - General Family Medicine 09/20/20 Yariel Schmid, PharmD [address] [place] [address] [phone] Pharmacist Internal Medicine 11/23/22
--- OUTSIDE RECORDS SUMMARY | 2025-05-23 10:00 | XMS_ITS | Encounter Summary ---
Author Organization [employer] Address [address] 7t [place] [address] Care Team Providers Care Digital Marketing Analyst Name Role Phone Xuan Mckeon MD Primary Care Provider [phone] Yariel Schmid PharmD Unavailable [phone] Encounter Details Date Type Department Care Team ([facility] st Contact Info) Description 09/20/2024 Orders Only [facility] [address] [place], [place] [phone] Xuan Mckeon MD [address] [place], [place] [phone] Left lower quadrant abdominal pain (Primary Dx); [...] Description 05/30/2025 9:00 AM EDT Medication Management [facility] [address] [place] [phone] Yariel Schmid, PharmD [address] [place] [address] 45[address] 06/28/2025 9:00 AM EDT Office Visit [facility] [address] [place] [address] 97[address] Xuan Mckeon MD [address] [place] [address] 24498 documented as of this encounter Goals Goal [...] Sedimentation Rate 25(H) 0 - 20 MM/HR [facility] Comment:Patients with polycy themia and many hemoglobin abnormalitiesmay have depressed sed rates whereas patients with anemiamay have elevated sed rates. Blood Venous blood specimen / Unknown 09/21/2024 9:16 AM EST 09/21/2024 11:12 AM EST Xuan Mckeon MD LAB BLOOD ORDERABLES Final Resul t Performing Organization Address [facility]/ZIP Co de Phone Number [facility] [address] [place] [address] [phone] * (ABNORMAL) C-reactive Protein (09/21/2024 9:16 AM EST) Pathologist [facility] C Reactive Protein 0.96(H) < or = 0.50 mg/dL [facility] Blood Venous blood specimen / Unknown 09/21/2024 9:16 AM EST 09/21/2024 11:12 AM EST Xuan Mkceon MD LAB BLOOD ORDERABLES Final Resul t [facility] [address] [place] [address] [phone] * (ABNORMAL) CBC auto differential (09/21/2024 9:16 AM EST) White Blood Count 6.2 4.8 - 10.8 X10*3/uL [facility] Red Blood Count 3.99(L) 4.20 - 5.50 X10*6/uL [facility] Hemoglobin 12.4 12.0 - 16.0 g/dl [facility] Hematocrit 36.3(L) 37.0 - 47.0 % [facility] Mean Corpuscular Volume 91.0 80.0 - 98.0 fL [facility] Mean Corpuscular Hemoglobin 31.1 27.0 - 33.0 pg [facility] Mean Corpuscular HGB Conc 34.2 31.0 - 35.0 g/dl [facility] Red Cell Distribution Width 12.5 11.0 - 16.0 % [facility] Platelet Count 288 160 - 400 X10*3/uL [facility] Mean Platelet Volume 10.5 9.4 - 12.3 fL [facility] Neutrophils Percent Auto 70.5 45 - 73 % [facility] Imm Gran Pct Auto 0.3 0.0 - 0.4 % [facility] Lymphocytes Percent Auto 20.0 20 - 40 % [facility] Monocytes Percent Auto 7.1 2 - 11 % [facility] Eosinophils Percent Auto 1.6 0 - 4 % [facility] Basophils Percent Auto 0.5 0 - 2 % [facility] NRBC Pct Auto 0.0 0.0 - 0.2 /100WBC [facility] Neutrophils Absolute Auto 4.3 2.0 - 8.3 x10*3/uL [facility] Imm Gran Abs Auto 0.02 0.00 - 0.03 X10*3/uL [facility] Lymphocytes Absolute Auto 1.2 1.2 - 4.9 X10*3/uL [facility] Monocytes Absolute Auto 0.4 0.1 - 1.2 X10*3/uL [facility] Eosinophils Absolute Auto 0.1 0.0 - 0.4 X10*3/uL [facility] Basophils Absolute Auto 0.0 0.0 - 0.2 X10*3/uL [facility] NRBC Abs Auto 0.000 0.0 - 0.012 X10*3/uL [facility] Blood Venous blood specimen / Unknown 09/21/2024 9:16 AM EST 09/21/2024 11:12 AM EST Xuan Mckeon MD LAB BLOOD ORDERABLES Final Resul t [facility] [address] [place] [phone] documented in this encounter Visit Diagnoses Diagnosis Left lower quadrant abdominal pain- Primary Diverticulitis Diverticulitis of colon (without mention of hemorrhage) documented in this encounter Additional Health Concerns Assessment Noted Time PHQ-9 Depression Total Score: 11 024 10:30 AM EDT documented as of this encounter Care Teams Digital Marketing Analyst Relationship Specialty Start Date End Date Xuan Mckeon MD [address] [place] [address] PCP - General Family Medicine 09/20/20 Yariel Schmid, CristóbalD [address] [place] [address] [phone] Pharmacist Internal Medicine 11/23/22 documented as of this encounter
--- OUTSIDE RECORDS SUMMARY | 2025-05-23 10:00 | XMS_ITS | Encounter Summary ---
Author Organization [employer] Address [address] [place] [address] Care Team Providers Care Appointment Setter Name Role Phone Xuan Mckeon MD Primary Care Provider Yariel Schmid PharmD Unavailable [phone] Encounter Details Date Type Department Care Team ([facility] st Contact Info) Description 12/06/2023 Orders Only [facility] [address] [place], [place] [phone] Xuan Mckeon MD [address] [place], [place] [phone] Social History Tobacco Use Types Packs/Day Years [...] Description 05/30/2025 9:00 AM EDT Medication Management [facility] [address] [place] [phone] Yariel Schmid PharmD [address] [place] [address] 360[address] 06/28/2025 9:00 AM EDT Office Visit [facility] [address] [place] [address] [phone] Xuan Mckeon MD [address] [place] [address] [phone] documented as of this encounter Goals Goal [...] documented as of this encounter Care Teams Appointment Setter Relationship Specialty Start Date End Date Xuan Mckeon MD [address] [place] [address] [phone] PCP - General Family Medicine 09/20/20 Yariel Schmid PharmD [address] [place] [address] [phone] Pharmacist Internal Medicine 11/23/22 documented as of this encounter
--- OUTSIDE RECORDS SUMMARY | 2025-05-23 10:00 | XMS_ITS | Encounter Summary ---
Author Organization [employer] Address [address] [facility] 7t [place] [address] Care Team Providers Care Dairy Farm Manager Name Role Phone Xuan Mckeon MD Primary Care Provider [phone] Yariel Schmid PharmD Unavailable [phone] Reason for Visit * Reason Comments Med Refill Encounter Details Date Type Department Care Team ([facility] st Contact Info) Description 10/05/2023 Refill [facility] [address] [place], [place] [phone] Xuan Mckeon MD [address] [place], [place] [phone] Vitamin B12 deficiency Social History Tobacco Use [...] Description 05/30/2025 9:00 AM EDT Medication Management [facility] [address] [place] [phone] Yariel Schmid, PharmD [address] [place] [phone] 06/28/2025 9:00 AM EDT Office Visit [facility] [address] [place] [phone] Xuan Mckeon MD [address] [place] [address] [phone] documented as of this encounter Goals Goal [...] documented as of this encounter Care Teams Dairy Farm Manager Relationship Specialty Start Date End Date Xuan Mckeon MD [address] [place] [phone] PCP - General Family Medicine 09/20/20 Yariel Schmid, PharmD [address] [place] [address] [phone] Pharmacist Internal Medicine 11/23/22 documented as of this encounter
--- OUTSIDE RECORDS SUMMARY | 2025-05-23 10:00 | XMS_ITS | Encounter Summary ---
Author Organization [employer] [facility] Address [address] [facility] 7t [place] [address] Care Team Providers Care Insurance Agency Manager Name Role Phone Xuan Mckeon MD Primary Care Provider Yariel Schmid PharmD Unavailable [phone] Encounter Details Date Type Department Care Team (Latest Contact Info) Description 01/23/2022 Abstract [facility] CONVERSIONS Dental, Provider, DDS Social History [...] Care Team ( st Contact Info) Description 05/30/2025 9:00 AM EDT Medication Management [facility] MEDICINE [address] [place] [phone] Yraiel Schmid, PharmD [address] [place] [address] 06/28/2025 9:00 AM EDT Office Visit [facility] [address] [place] [address]67 Xuan Mckeon MD [address] [place] [address] documented as of this encounter Visit Diagnoses Not on filedocumented in this encounter Care Teams Insurance Agency Manager Relationship Specialty Start Date End Date Xuan Mckeon MD [address] [place] [address] PCP - General Family Medicine 09/20/20 Yariel Schmid, CristóbalD [address] [place] [address] Pharmacist Internal Medicine 11/23/22 documented as of this encounter
--- OUTSIDE RECORDS SUMMARY | 2025-05-23 10:00 | XMS_ITS | Encounter Summary ---
Author Organization [employer] Address [address] [facility] 7t [place] [address] Care Team Providers Care Yarn Comber Name Role Phone Xuan Mckeon MD Primary Care Provider [phone] Yariel Schmid PharmD Unavailable [phone] Encounter Details Date Type Department Care Team (Late st Contact Info) Description 09/23/2022 Orders Only [facility] [address] [place] [address] Shannon Rich LPN Social History Tobacco Use [...] Description 05/30/2025 9:00 AM EDT Medication Management [facility]INE [address] [place] [phone] Yariel Schmid, PharmD [address] [place], [place] [phone] 06/28/2025 9:00 AM EDT Office Visit [facility] [address] [place] [address] [phone] Xuan Mckeon MD [address] [place], [place] [phone] documented as of this encounter Visit Diagnoses Not on filedocumented in this encounter Care Teams Yarn Comber Relationship Specialty Start Date End Date Xuan Mckeon MD [address] [place], [place] [phone] PCP - General Family Medicine 09/20/20 Yariel Schmid PharmD [address] [place] [address] Pharmacist Internal Medicine 11/23/22 documented as of this encounter
--- OUTSIDE RECORDS SUMMARY | 2025-05-23 10:00 | XMS_ITS | Encounter Summary ---
Author Organization [employer] Address [address] [facility] 7t [place] [address] Care Team Providers Care Military Science Instructor Name Role Phone Xuan Mckeon MD Primary Care Provider [phone] Yariel Schmid PharmD Unavailable [phone] Reason for Referral * Consultation (Routine) - Authorized Specialty Diagnoses / Procedures Referred By Contac t Referred To Contact Pharmacy Diagnoses Primary hypertension Type 2 diabetes mellitus without complication, without long-term current use of insulin (CMS/HCC) Xuan Mckeon MD [address] [place] [address] Phone: tel: fax: Referral ID Status Reason Start Date Expiration Date Visits Requested Visits Authorized [id number] Authorized Consult and Treat 07/18/2024 07/18/2025 6 6 Encounter Details Date Type Department Care Team (Late st Contact Info) Description 07/18/2024 Orders Only [facility] [address] [place] [address] [phone] Xuan Mckeon MD [address] [place], [place] [phone] Primary hypertension (Primary Dx); Type 2 diabetes [...] AM EDT Medication Management [facility] [address] [place] [phone] Yariel Schmid, CristóbalD [address] [place] [address] 06/28/2025 9:00 AM EDT Office Visit [facility] [address] [place] [phone] Xuan Mckeon MD [address] [place] [address] Scheduled Referrals Name Type Priority Associated Diagnoses Orde r Schedule Referral to Pharmacy CDTM Outpatient Referral Routine Primary hypertension Type 2 diabetes mellitus without complication, without long-term current use of insulin ([facility]) Ordered: 07/18/2024 documented as of this encounter Goals Goal Patient Goal Type Associated Problems Recent Progress Patient-Stated? Author Blood Pressure < 140/90 Blood Pressure 120/84( 025 10:48 AM EDT) No Yariel Schmid, Leelee documented as of this encounter Visit Diagnoses Diagnosis Primary hypertension- Primary Unspecified essential hypertension Type 2 diabetes mellitus without complication, without long-term current use of insulin ([facility]) documented in this encounter Additional Health Concerns Assessment Noted Time PHQ-9 Depression Total Score: 11 024 10:30 AM EDT documented as of this encounter Care Teams Military Science Instructor Relationship Specialty Start Date End Date Xuan Mckeon MD [address] [place] [address] PCP - General Family Medicine 09/20/20 Yariel Schmid, CristóbalD [address] [place] [phone] Pharmacist Internal Medicine 11/23/22 documented as of this encounter
--- OUTSIDE RECORDS SUMMARY | 2025-05-23 10:00 | XMS_ITS | Encounter Summary ---
Author Organization [employer] Address [address] [facility] 7t [place] [address] Care Team Providers Care Sulfate Drier Machine Operator Name Role Phone Xuan Mckeon MD Primary Care Provider [phone] Yariel Schmid PharmD Unavailable Reason for Visit * Reason Comments Med Refill Encounter Details Date Type Department Care Team ([facility] st Contact Info) Description 10/18/2024 Refill [facility] [address] [place], [place] [phone] Xuan Mckeon MD [address] [place], [place] [phone] Fibromyalgia Social History Tobacco Use Types Packs/Day [...] Upcoming Encounters Date Type Department Care Team ([facility] st Contact Info) Description 05/30/2025 9:00 AM EDT Medication Management [facility] [address] [place] [address] [phone] Yariel Schmid, PharmD [address] [place] [address] 479[address] 06/28/2025 9:00 AM EDT Office Visit [facility] [address] [place] [phone] Xuan Mckeon MD [address] [place] [address] 92492 documented as of this encounter Goals Goal [...] documented as of this encounter Care Teams Sulfate Drier Machine Operator Relationship Specialty Start Date End Date Xuan Mckeon MD [address] [place] [address] [phone] PCP - General Family Medicine 09/20/20 Yariel Schmid, Leelee [address] [place] [address] 76656 Pharmacist Internal Medicine 11/23/22 documented as of this encounter
--- OUTSIDE RECORDS SUMMARY | 2025-05-23 10:01 | XMS_ITS | Encounter Summary ---
Author Organization [employer] [facility] Address [address] [place] [address] 7t [place] [address] Care Team Providers Care Shale Planer Operator Helper Name Role Phone Xuan Mckeon MD Primary Care Provider [phone] Yariel Schmid PharmD Unavailable [phone] Reason for Visit * Reason Comments Med Refill Encounter Details Date Type Department Care Team (Late Contact Info) Description 04/07/2023 Refill [facility] [address] [place] [address] [phone] Xuan Mckeon MD [address] [place] [address] [phone] Vitamin B12 deficiency Social History Tobacco Use [...] Description 05/30/2025 9:00 AM EDT Medication Management [facility] [address] [place], [place] [phone] Yariel Schmid, PharmD [address] [place], [place] [phone] 06/28/2025 9:00 AM EDT Office Visit [facility] [address] [place] [address] Xuan Mckeon MD [address] [place] [address] documented as of this encounter Goals Goal [...] documented as of this encounter Care Teams Shale Planer Operator Helper Relationship Specialty Start Date End Date Xuan Mckeon MD [address] [place] [address] PCP - General Family Medicine 09/20/20 Yariel Schmid, PharmD [address] [place] [address] Pharmacist Internal Medicine 11/23/22 documented as of this encounter
[2025-05-23 11:36] LABS: Appearance Urine Cloudy; Glucose Urine UA Negative (Negative); PH 6.0 (5.0-9.0); Specific Gravity - Urine 1.020 (1.005-1.025); UMIC TRIGGER UA YES
[2025-05-23 12:03] LABS: Anion Gap 12 (12-20); Blood Urea Nitrogen 13 mg/dL (9-16); Calcium 9.5 mg/dL (8.4-10.2); Carbon Dioxide 28 mmol/L (22-29); Chloride 98 mmol/L (96-108); Estimated Glomerular Filt Rate > 60; Potassium 4.2 mmol/L (3.3-5.1); Sodium 134 mmol/L (135-145)
[2025-05-28 22:54] LABS: TS Negative Control Passed; TS Panel A 0; TS Panel B 0; TS Positive Control Passed; TSpotTB Negative (Negative)
== END 2025-05-23 08:38 | disposition home or self-care (01) ==
LOC: HO.HHCL 08:37
PROVIDERS: Internal Medicine Hypertension Specialist; PCP Family Medicine; Visit Provider Family Medicine
DX: D35.02 Benign neoplasm of left adrenal gland (principal); Z11.1 Encounter for screening for respiratory tuberculosis
CPT/HCPCS: 36415; 80048; 81001; 86481

== ENCOUNTER 2025-05-26 03:24 | Emergency (ER) | payer OTHER, SELFPAY ==
--- NOTE | ~2025-05-26 | XR_ITS ---
CLINICAL HISTORY: dyspnea 1 view chest x-ray Comparison: CR - XR CHEST 1V - 05/09/25 00:28 EDT Findings: No consolidation or effusion. Heart size is normal. No acute fracture. IMPRESSION: No acute cardiopulmonary abnormality. This document has been electronically signed by: Kathryn Fermin on 05/26/2025 07:17:13
--- NOTE | 2025-05-26 03:31 | ED.SOB ---
HPI - SOB/Dyspnea General Chief Complaint: Dyspnea Stated Complaint: SOB Time Seen by Provider: 05/26/25 03:31 Source: patient, EMS, old records reviewed and cushion gum applicator Mode of arrival: EMS Limitations: language barrier History of Present Illness ED Provider: Dr. Morenita Lee HPI Narrative: 75-year-old female with history of hypertension and fibromyalgia presenting with shortness of breath that has been ongoing for the last couple of weeks. Patient admits that she was recently seen in this emergency department and diagnosed with abdominal cramping and shortness of breath that improved with an inhaler. She was given a prescription for the inhaler as well as dicyclomine and admits that she has been using her inhaler at home. Tabatha used 2 puffs of her inhaler but felt like she was not improving. Called 911 for help. EMS reports her original oxygen level was 89% on room air. She received a DuoNeb EN route as well as supplemental oxygen and came up to 95%. Patient reports improvement in her symptoms since arriving in the emergency department. Admits that she has been dealing with a tight cough over the last 2 weeks since being hospitalized. Admits she has not really improved much over the last 2 weeks. No associated fever. No other known sick contacts. Her abdominal cramping got better. She has had no abdominal pain, vomiting or diarrhea. She denies associated chest pain with her difficulty breathing. No diagnosis of COPD or asthma. She is a nonsmoker. Related Data Home Medications ?Medication ?Instructions ?Recorded ?Confirmed lorazepam 1 mg tablet 1 mg PO BID PRN anxiety 07/04/20 04/23/25 losartan 100 mg tablet 100 mg PO DAILY 07/04/20 04/23/25 metformin 500 mg tablet,extended 500 mg PO DAILY 07/04/20 04/23/25 release 24 hr atorvastatin 40 mg tablet 40 mg PO DAILY 07/06/22 04/23/25 cyanocobalamin (vitamin B-12) 500 500 mcg PO DAILY 07/06/22 04/23/25 mcg tablet metoprolol succinate 100 mg 100 mg PO DAILY 07/25/24 04/23/25 tablet,extended release 24 hr cetirizine 10 mg tablet 10 mg PO DAILY PRN itch 04/02/25 04/23/25 cholecalciferol (vitamin D3) 50 50 mcg PO DAILY 08/20/25 mcg (2,000 unit) capsule multivitamin 1 tab PO DAILY 04/25/25 Previous Rx's ?Medication ?Instructions ?Recorded tramadol 50 mg tablet 50 mg PO Q6H PRN pain #20 tabs 06/14/24 spironolactone 25 1 tab PO DAILY #90 tabs 04/03/25 mg-hydrochlorothiazide 25 mg tablet left wrist splint #1 ea 04/25/25 clopidogrel 75 mg tablet 75 mg PO DAILY #90 tabs 04/26/25 albuterol sulfate 90 mcg/actuation 2 inh inhalation Q4H PRN shortness 05/09/25 breath activated powder inhaler of breath #1 ea dicyclomine 20 mg tablet 20 mg PO TID #10 tabs 05/09/25 prednisone 50 mg tablet 50 mg PO DAILY #5 tabs 05/26/25 prednisone 50 mg tablet 50 mg PO DAILY 5 days #5 tabs 05/26/25 Allergies Allergy/AdvReac Type Severity Reaction Status Date / Time hydrocodone (HYDROCODONE) Allergy Unknown UNKNOWN Verified 05/26/25 03:37 levofloxacin (LEVOFLOXACIN) Allergy Unknown Rash Verified 05/26/25 03:37 metronidazole (METRONIDAZOLE) Allergy Unknown UNK Verified 05/26/25 03:37 promethazine (PROMETHAZINE) Allergy Unknown Rash Verified 05/26/25 03:37 Codeine Allergy Unknown swelling/ Uncoded 05/26/25 03:37 itching/ hives dye contrast Allergy Unknown red skin Uncoded 05/26/25 03:37 Hydrocodone-Acetaminophen Allergy Unknown rash Uncoded 05/26/25 03:37 Review of Systems Review of Systems: as per HPI, full review of systems performed and negative but for the above mentioned pertinent positives and negatives.n PMFSH Past Medical History Medical History Numbness and tingling in both hands Carpal tunnel syndrome on left Diverticulitis Hypertension Surgical History H/O section Family History Family History Father No problems noted. Mother CVD (cardiovascular disease) Social History Social History Alcohol intake: never Patient Tobacco Use Status: Never used Tobacco Advance Directives: No Advance Directives Information Provided: Yes Physical Exam Exam: Exam: GENERAL: Ill-appearing, mild respiratory distress. SKIN: Normal skin color for ethnicity, warm, dry, no rashes noted. HEENT:? Normocephalic, atraumatic, no stridor, EOMI. NECK: Soft, supple, full ROM, midline structures nontender, no step-offs, no deformities, no lymphadenopathy. CHEST: Heart regular tachycardia, symmetric chest rise and fall. PULMONARY: Diffuse, faint, expiratory wheezes throughout, tachypnea, limited air movement bilaterally, mild respiratory distress. ABDOMINAL: Soft, nontender, quiet bowel sounds in all quadrants. : Deferred. MUSCULOSKELETAL: Normal tone, full range of motion, no deformities, no peripheral edema. NEURO: Alert and oriented to person, CN II through XII intact, no focal neurologic deficits.? PSYCHIATRIC: Anxious affect, appropriate demeanor. Vital Signs: Vital Signs: Last Vital Signs Temp 99.6 F 05/26/25 08:13 Pulse 84 05/26/25 08:13 Resp 18 05/26/25 08:13 BP 134/56 L 05/26/25 08:13 Pulse Ox 97 05/26/25 08:13 O2 Del Method Room Air 05/26/25 08:13 BMI result Body Mass Index 32.6 Medications Administered Discontinued Medications Generic Name Dose Route Start Last Admin Trade Name Freq PRN Reason Stop Dose Admin Albuterol/Ipratropium 3 ml 05/26/25 03:35 05/26/25 03:41 Albuterol/Iprat 2.5/0.5mg 3 Ml Ampul.Neb INHALE 05/26/25 03:36 3 ml ONCE ONE Administration Prednisone 50 mg 05/26/25 07:08 05/26/25 07:42 Prednisone 10 Mg Tablet PO 05/26/25 07:09 50 mg ONCE ONE Administration Medical Decision Making Medical Decision Making MDM Narrative: Patient presents today with chief complaint of shortness of breath. Differential diagnosis includes, but is not limited to, upper respiratory infection, pneumonia, COPD exacerbation, asthma exacerbation, CHF, pneumothorax, pleural effusion, pulmonary embolism, ACS. Broad-based work-up will be initiated to evaluate for etiology of patient's symptoms. Patient has felt significantly improved after breathing treatments and steroid administration. I suspect that she has reactive airway disease in the setting of an upper respiratory infection today. COVID and flu swabs are negative. Chest x-ray is clear. Will give another course of steroids and have her follow-up with her primary care doctor as an outpatient. We had an extensive discussion regarding the importance of follow-up as well as strict return precautions to the emergency department. Patient will be discharged home in stable, improved condition. Differential Diagnosis Differential Diagnoses: The differential diagnosis associated with the presentation includes (as above) Admission/Observation Consideration of admission/observation: Escalation of care including admission/observation considered Lab Data MDM Lab Attestation statement: I reviewed the patient's lab results. 05/26/25 03:46 05/26/25 03:46 Labs: Lab Results 05/26/25 05/26/25 05/26/25 Range/Units 03:41 03:46 03:51 WBC 13.0 H (4.8-10.8) X10*3/uL RBC 3.63 L (4.20-5.50) X10*6/uL Hgb 11.6 L (12.0-16.0) g/dl Hct 32.9 L (37.0-47.0) % MCV 90.6 (80.0-98.0) fL MCH 32.0 (27.0-33.0) pg MCHC 35.3 H (31.0-35.0) g/dl RDW 12.7 (11.0-16.0) % Plt Count 239 (160-400) X10*3/uL MPV 9.8 (9.4-12.3) fL Immature Gran % (Auto) 0.3 (0.0-0.4) % Neut % (Auto) 83.1 H (45-73) % Lymph % (Auto) 9.3 L (20-40) % Runnels % (Auto) 6.1 (2-11) % Eos % (Auto) 0.9 (0-4) % Baso % (Auto) 0.3 (0-2) % Lymph # (Auto) 1.2 (1.2-4.9) X10*3/uL Runnels # (Auto) 0.8 (0.1-1.2) X10*3/uL Eos # (Auto) 0.1 (0.0-0.4) X10*3/uL Baso # (Auto) 0.0 (0.0-0.2) X10*3/uL Abs Immat Gran (auto) 0.04 H (0.00-0.03) X10*3/uL Absolute Neuts (auto) 10.8 H (2.0-8.3) x10*3/uL Absolute Nucleated RBC 0.000 (0.0-0.012) X10*3/uL Nucleated RBC % (auto) 0.0 (0.0-0.2) /100WBC D-Dimer High Sensitivty NG/ML VBG pH 7.41 (7.32-7.43) VBG pCO2 43 mmHg VBG pO2 77 mmHg VBG HCO3 27 H (22-26) mmol/L VBG O2 Saturation 96.0 % VBG Base Excess 2.9 mmol/L Sodium 134 L (135-145) mmol/L Potassium 3.8 (3.3-5.1) mmol/L Chloride 100 (96-108) mmol/L Carbon Dioxide 27 (22-29) mmol/L Anion Gap 11 L (12-20) BUN 22 H (9-16) mg/dL Creatinine 0.89 (0.5-1.4) mg/dL Estim Creat Clear Calc 53.2 Estimated GFR > 60 Random Glucose 203 H (60-115) mg/dL Calcium 8.7 D (8.4-10.2) mg/dL Magnesium 1.8 (1.6-2.6) mg/dL Total Bilirubin 0.4 (0.0-1.0) mg/dL AST 35 H (5-31) U/L ALT 38 H (0-31) U/L Alkaline Phosphatase 55 (39-117) U/L Troponin I High Sens 4.1 D (<3.5-17.0) ng/L NT-Pro-B Natriuret Pep 150.8 (<300) pg/mL Total Protein 6.2 L (6.5-8.0) g/dL Albumin 4.1 (3.5-5.0) g/dL COVID-19 (CONCHA) Negative (Negative) COVID-19 Clin Com See Note Influenza Type A (MEL) Negative (Negative) Influenza Type B (MEL) Negative (Negative) Influenza A & B Note See Note 05/26/25 Range/Units 06:06 WBC (4.8-10.8) X10*3/uL RBC (4.20-5.50) X10*6/uL Hgb (12.0-16.0) g/dl Hct (37.0-47.0) % MCV (80.0-98.0) fL MCH (27.0-33.0) pg MCHC (31.0-35.0) g/dl RDW (11.0-16.0) % Plt Count (160-400) X10*3/uL MPV (9.4-12.3) fL Immature Gran % (Auto) (0.0-0.4) % Neut % (Auto) (45-73) % Lymph % (Auto) (20-40) % Runnels % (Auto) (2-11) % Eos % (Auto) (0-4) % Baso % (Auto) (0-2) % Lymph # (Auto) (1.2-4.9) X10*3/uL Runnels # (Auto) (0.1-1.2) X10*3/uL Eos # (Auto) (0.0-0.4) X10*3/uL Baso # (Auto) (0.0-0.2) X10*3/uL Abs Immat Gran (auto) (0.00-0.03) X10*3/uL Absolute Neuts (auto) (2.0-8.3) x10*3/uL Absolute Nucleated RBC (0.0-0.012) X10*3/uL Nucleated RBC % (auto) (0.0-0.2) /100WBC D-Dimer High Sensitivty 407 NG/ML VBG pH (7.32-7.43) VBG pCO2 mmHg VBG pO2 mmHg VBG HCO3 (22-26) mmol/L VBG O2 Saturation % VBG Base Excess mmol/L Sodium (135-145) mmol/L Potassium (3.3-5.1) mmol/L Chloride (96-108) mmol/L Carbon Dioxide (22-29) mmol/L Anion Gap (12-20) BUN (9-16) mg/dL Creatinine (0.5-1.4) mg/dL Estim Creat Clear Calc Estimated GFR Random Glucose (60-115) mg/dL Calcium (8.4-10.2) mg/dL Magnesium (1.6-2.6) mg/dL Total Bilirubin (0.0-1.0) mg/dL AST (5-31) U/L ALT (0-31) U/L Alkaline Phosphatase (39-117) U/L Troponin I High Sens 11.4 D (<3.5-17.0) ng/L NT-Pro-B Natriuret Pep (<300) pg/mL Total Protein (6.5-8.0) g/dL Albumin (3.5-5.0) g/dL COVID-19 (CONCHA) (Negative) COVID-19 Clin Com Influenza Type A (MEL) (Negative) Influenza Type B (MEL) (Negative) Influenza A & B Note Independent Interpretation I performed an independent interpretation of an: EKG and Plain X-Ray Radiology Impression Discussion of test interpretation with radiology: I have reviewed the radiologist's reading. Radiologist Impression: 1 view chest x-ray Comparison: CR - XR CHEST 1V - 05/09/25 00:28 EDT Findings: No consolidation or effusion. Heart size is normal. No acute fracture. IMPRESSION: No acute cardiopulmonary abnormality. This document has been electronically signed by: Kathryn Fermin on 05/26/2025 07:17:13 Independent Historian Clinical information obtained from an independent historian. History obtained from or confirmed by: Spouse and EMS External Record Review External record reviewed: Inpatient record Prescription Management I considered prescription management with: Other (steriods) Discharge Plan Discharge Clinical Impression: SOB (shortness of breath), Acute bronchitis with bronchospasm Patient Disposition: Home, Self-Care Instructions: Acute Bronchitis (ED) Additional Instructions: Take your steroids as prescribed for the next 5 days. Do not stop this early if you start to feel better. Return to the emergency department immediately if your symptoms do not improve. Follow up with your primary care doctor within the next 48 hours. Call 911 with any medical emergency. Prescriptions: New prednisone 50 mg tablet 50 mg PO DAILY 5 Days Qty: 5 0RF prednisone 50 mg tablet 50 mg PO DAILY Qty: 5 0RF No Action spironolacton-hydrochlorothiaz 25-25 mg tablet 1 tab PO DAILY Qty: 90 1RF clopidogrel 75 mg tablet 75 mg PO DAILY Qty: 90 3RF tramadol 50 mg tablet 50 mg PO Q6H PRN (Reason: pain) Qty: 20 0RF dicyclomine 20 mg tablet 20 mg PO TID Qty: 10 0RF albuterol sulfate 90 mcg/actuation aerosol powdr breath activated 2 inh inhalation Q4H PRN (Reason: shortness of breath) Qty: 1 0RF metformin 500 mg tablet extended release 24 hr 500 mg PO DAILY losartan 100 mg tablet 100 mg PO DAILY lorazepam 1 mg tablet 1 mg PO BID PRN (Reason: anxiety) atorvastatin 40 mg tablet 40 mg PO DAILY cyanocobalamin (vitamin B-12) 500 mcg tablet 500 mcg PO DAILY metoprolol succinate 100 mg tablet extended release 24 hr 100 mg PO DAILY cetirizine 10 mg tablet 10 mg PO DAILY PRN (Reason: itch) multivitamin Tablet 1 tab PO DAILY cholecalciferol (vitamin D3) 50 mcg (2,000 unit) capsule 50 mcg PO DAILY (DME) left wrist splint See Rx Instructions .Route .MEDSUPPLY Qty: 1 0RF Rx Instructions: As directed Interventions: ED Discharge Assessment Last Done: 05/26/25 08:13 Discharge Date/Time: 05/26/25 08:50 Print Language: Mohawk
[2025-05-26 03:34] VITALS: BP 111/54; BP 158/100; PULSE 83; PULSE 87; RESP 20; TEMP 36.6; O2SAT 94; O2SAT 98; BMI 32.6
--- NOTE | 2025-05-26 03:34 | PC.NURSE ---
pt denies chest pain
--- NOTE | 2025-05-26 03:35 | ECG_ITS ---
Test Reason : SOB Blood Pressure : */* mmHG Vent. Rate : 80 BPM Atrial Rate : 80 BPM P-R Int : 162 ms QRS Dur : 98 ms QT Int : 398 ms P-R-T Axes : 51 8 33 degrees QTcB Int : 459 ms Sinus rhythm with occasional Premature ventricular complexes Possible Left atrial enlargement Borderline ECG When compared with ECG of 09-May-2025 00:13, Premature ventricular complexes are now Present Referred By: Morenita Lee Electronically Signed By: LAWANDA KEEN
[2025-05-26 03:41] VITALS: PULSE 80; RESP 22; O2SAT 96
[2025-05-26] MEDS: Albuterol/Iprat 2.5/0.5MG 3 ML AMPUL.NEB INHALE (03:41)
[2025-05-26 03:52] LABS: Hematocrit 32.9 % (37.0-47.0); Hemoglobin 11.6 g/dl (12.0-16.0); Imm Gran Abs Auto 0.04 X10*3/uL (0.00-0.03); Imm Gran Pct Auto 0.3 % (0.0-0.4); Lymphocytes Absolute Auto 1.2 X10*3/uL (1.2-4.9); MANUAL DIFF FLAG NO; Mean Corpuscular HGB Conc 35.3 g/dl (31.0-35.0); Mean Corpuscular Hemoglobin 32.0 pg (27.0-33.0); Mean Corpuscular Volume 90.6 fL (80.0-98.0); NRBC Abs Auto 0.000 X10*3/uL (0.0-0.012); NRBC Pct Auto 0.0 /100WBC (0.0-0.2); Platelet Count 239 X10*3/uL (160-400); Red Blood Count 3.63 X10*6/uL (4.20-5.50); White Blood Count 13.0 X10*3/uL (4.8-10.8)
[2025-05-26 03:59] LABS: Venous Blood Gas Refer to POC result
[2025-05-26 04:00] LABS: VBG HCO3 27 mmol/L (22-26); VBG O2 % Saturation 96.0 %
--- OUTSIDE RECORDS SUMMARY | 2025-05-26 04:05 | XMS_ITS | Encounter Summary ---
Author Organization [employer] Address [address] [place] [address] Care Team Providers Care Thermal Cutting Tracer Machine Operator Name Role Phone Xuan Mckeon MD Primary Care Provider [phone] Yariel Schmid PharmD Unavailable [phone] Reason for Visit * Reason Comments Med Refill Encounter Details Date Type Department Care Team ([facility] st Contact Info) Description 10/05/2023 Refill [facility] [address] [place], [place] [phone] Xuan Mckeon MD [address] [place], [place] [phone] Vitamin B12 deficiency Social History Tobacco Use [...] 9:00 AM EDT Medication Management [facility] [address] [place] [phone] Yariel Schmid, PharmD [address] [place] [address] 06/28/2025 9:00 AM EDT Office Visit [facility] [address] [place] [phone] Xuan Mckeon MD [address] [place] [phone] documented as of this encounter Goals Goal [...] documented as of this encounter Care Teams Thermal Cutting Tracer Machine Operator Relationship Specialty Start Date End Date Xuan Mckeon MD [address] [place] [phone] PCP - General Family Medicine 09/20/20 Yariel Schmid, PharmD [address] [place] [address] 24483 Pharmacist Internal Medicine 11/23/22 documented as of this encounter
--- OUTSIDE RECORDS SUMMARY | 2025-05-26 04:05 | XMS_ITS | Encounter Summary ---
Author Organization [employer] [facility] Address [address] 7t [place] [address] Care Team Providers Care Emergency Crew Supervisor Name Role Phone Xuan Mckeon MD Primary Care Provider [phone] Yariel Schmid PharmD Unavailable [phone] Encounter Details Date Type Department Care Team (Latest Contact Info) Description 01/23/2022 Abstract [facility] CONVERSIONS Dental, Provider, DDS Social History Tobacco [...] 9:00 AM EDT Medication Management [facility] [address] [place] [phone] Yariel Schmid, PharmD [address] [place] [address] 06/28/2025 9:00 AM EDT Office Visit [facility] MED[facility]INE [address] [place] [phone] Xuan Mckeon MD [address] [place] [address] documented as of this encounter Visit Diagnoses Not on filedocumented in this encounter Care Teams Emergency Crew Supervisor Relationship Specialty Start Date End Date Xuan Mckeon MD [address] [place] [address] PCP - General Family Medicine 09/20/20 Yariel Schmid, CristóbalD [address] [place] [address] Pharmacist Internal Medicine 11/23/22 documented as of this encounter
--- OUTSIDE RECORDS SUMMARY | 2025-05-26 04:05 | XMS_ITS | Encounter Summary ---
Author Organization [employer] Address [address] [facility] 7t [place] [address] Care Team Providers Care International Sourcing Manager Name Role Phone Xuan Mckeon MD Primary Care Provider [phone] Yariel Schmid PharmD Unavailable [phone] Reason for Visit * Reason Comments Med Refill Encounter Details Date Type Department Care Team ([facility] Contact Info) Description 10/06/2022 Refill [facility]EDS [address] [place], [place] [phone] Ofelia Akhtar ANP [address] [place] [address] Other specified anxiety disorders Social History Tobacco [...] Upcoming Encounters Date Type Department Care Team ([facility] Contact Info) Description 05/30/2025 9:00 AM EDT Medication Management [facility] [address] [place], [place] [phone] Yariel Schmid, PharmD [address] [place] [address] 06/28/2025 9:00 AM EDT Office Visit [facility] [address] [place], [place] [phone] Xuan Mckeon MD [address] [place], [place] [phone] documented as of this encounter Visit Diagnoses Diagnosis Other specified anxiety disorders documented in this encounter Care Teams International Sourcing Manager Relationship Specialty Start Date End Date Xuan Mckeon MD [address] [place] [address] [phone] PCP - General Family Medicine 09/20/20 Yariel Schmid, PharmD [address] [place] [address] [phone] Pharmacist Internal Medicine 11/23/22 documented as of this encounter
--- OUTSIDE RECORDS SUMMARY | 2025-05-26 04:05 | XMS_ITS | Encounter Summary ---
Author Organization [employer] Address [address] [place] [address] Care Team Providers Care Steel Die Press Set Up Operator Name Role Phone Xuan Mckeon MD Primary Care Provider [phone] Yariel Schmid PharmD Unavailable [phone] Encounter Details Date Type Department Care Team ([facility] st Contact Info) Description 10/22/2023 Orders Only [facility] [address] [place], [place] [phone] Xuan Mckeon MD [address] [place], [place] [phone] Social History Tobacco Use Types Packs/Day Years [...] 9:00 AM EDT Medication Management [facility] [address] [place] [phone] Yariel Schmid PharmD [address] [place] [phone] 06/28/2025 9:00 AM EDT Office Visit [facility] [address] [place] [phone] Xuan Mckeon MD [address] [place] [address] 15[address] documented as of this encounter Goals Goal [...] documented as of this encounter Care Teams Steel Die Press Set Up Operator Relationship Specialty Start Date End Date Xuan Mckeon MD [address] [place] [phone] PCP - General Family Medicine 09/20/20 Yariel Schmid PharmD [address] [place] [address] Pharmacist Internal Medicine 11/23/22 documented as of this encounter
--- OUTSIDE RECORDS SUMMARY | 2025-05-26 04:05 | XMS_ITS | Encounter Summary ---
Author Organization [employer] Address [address] 7[address] [place] [address] Care Team Providers Care Media Manager Name Role Phone Xuan Mckeon MD Primary Care Provider [phone] Yariel Schmid PharmD Unavailable [phone] Reason for Visit * Reason Comments Med Refill Encounter Details Date Type Department Care Team ([facility] st Contact Info) Description 10/05/2023 Refill [facility] [address] [place], [place] [phone] Xuan Mckeon MD [address] [place], [place] [phone] Vitamin B12 deficiency Social History Tobacco Use [...] 9:00 AM EDT Medication Management [facility] [address] [place] [phone] Yariel Schmid, PharmD [address] [place] [phone] 06/28/2025 9:00 AM EDT Office Visit [facility] [address] [place] [phone] Xuan Mckeon MD [address] [place] [phone] documented as of this encounter Goals Goal [...] as of this encounter Care Teams Media Manager Relationship Specialty Start Date End Date Xuan Mckeon MD [address] [place] [phone] PCP - General Family Medicine 09/20/20 Yariel Schmid, PharmD [address] [place] [phone] Pharmacist Internal Medicine 11/23/22 documented as of this encounter
--- OUTSIDE RECORDS SUMMARY | 2025-05-26 04:05 | XMS_ITS | Encounter Summary ---
Author Organization [employer] Address [address] [facility] 7t [place] [address] Care Team Providers Care Lpn Cma Name Role Phone Xuan Mckeon MD Primary Care Provider [phone] Yariel Schmid PharmD Unavailable [phone] Encounter Details Date Type Department Care Team (Late st Contact Info) Description 09/23/2022 Orders Only [facility]EDS [address] [place] [address] Shannon Rich LPN Social History Tobacco Use [...] 9:00 AM EDT Medication Management [facility] [address] [place] [phone] Yariel Schmid, PharmD [address] [place], [place] [phone] 06/28/2025 9:00 AM EDT Office Visit [facility] [address] [place] [address] [phone] Xuan Mckeon MD [address] [place], [place] [phone] documented as of this encounter Visit Diagnoses Not on filedocumented in this encounter Care Teams Lpn Cma Relationship Specialty Start Date End Date Xuan Mckeon MD [address] [place], [place] [phone] PCP - General Family Medicine 09/20/20 Yariel Schmid PharmD [address] [place] [address] Pharmacist Internal Medicine 11/23/22 documented as of this encounter
--- OUTSIDE RECORDS SUMMARY | 2025-05-26 04:06 | XMS_ITS | Encounter Summary ---
Author Organization [employer] Address [address] [facility] 7t [place] [address] Care Team Providers Care Wheel Setter Name Role Phone Xuan Mckeon MD Primary Care Provider [phone] Yariel Schmid PharmD Unavailable [phone] Reason for Visit * Reason Comments Med Refill Encounter Details Date Type Department Care Team (Late Contact Info) Description 03/18/2023 Refill [facility] MED & PEDS [address] [place], [place] [phone] Xuan Mckeon MD [address] [place] [address] Other specified anxiety disorders Social History Tobacco [...] Description 05/30/2025 9:00 AM EDT Medication Management [facility] [address] [place], [place] [phone] Yariel Schmid, PharmD [address] [place], [place] [phone] 06/28/2025 9:00 AM EDT Office Visit [facility] [address] [facility] [place] [address] Xuan Mckeon MD [address] [place] [address] documented as of this encounter Goals Goal [...] documented as of this encounter Care Teams Wheel Setter Relationship Specialty Start Date End Date Xuan Mckeon MD [address] [place] [address] PCP - General Family Medicine 09/20/20 Yariel Schmid, PharmD [address] [place] [phone] Pharmacist Internal Medicine 11/23/22 documented as of this encounter
--- OUTSIDE RECORDS SUMMARY | 2025-05-26 04:06 | XMS_ITS | Encounter Summary ---
Author Organization [employer] Address [address] [facility] [address] 7t [place] [address] Care Team Providers Care Breakfast And Room Attendant Name Role Phone Xuan Mckeon MD Primary Care Provider [phone] Yariel Schmid PharmD Unavailable [phone] Reason for Visit * Reason Comments Med Refill Encounter Details Date Type Department Care Team ([facility] st Contact Info) Description 03/06/2024 Refill [facility] 230 [place], [place] [phone] Ofelia Akhtar, ANP [address] [place], [place] [phone] Other specified anxiety disorders Social History Tobacco [...] Management [facility] [address] [place] [address] Yariel Schmid PharmD [address] [place] [address] 06/28/2025 9:00 AM EDT Office Visit [facility] [address] [place] [address] Xuan Mckeon MD [address] [place] [address] documented as of this encounter Goals Goal [...] documented as of this encounter Care Teams Breakfast And Room Attendant Relationship Specialty Start Date End Date Xuan Mckeon MD [address] [place] [address] PCP - General Family Medicine 09/20/20 Yariel Schmid PharmD [address] [place] [address] Pharmacist Internal Medicine 11/23/22 documented as of this encounter
--- OUTSIDE RECORDS SUMMARY | 2025-05-26 04:06 | XMS_ITS | Encounter Summary ---
Author Organization [employer] Address [address] [facility] [address] [facility] [address] 7t [place] [address] Care Team Providers Care Key Punch Teacher Name Role Phone Xuan Mckeon MD Primary Care Provider [phone] Yariel Schmid PharmD Unavailable [phone] Encounter Details Date Type Department Care Team ([facility] st Contact Info) Description 12/06/2023 Orders Only [facility] MEDICINE 230 [place], [place] [phone] Xaun Mckeon MD 230 [place], [place] [phone] Social History Tobacco Use Types Packs/Day Years [...] Description 05/30/2025 9:00 AM EDT Medication Management [facility] MEDICINE [address] [place] [phone] Yariel Schmid PharmD [address] [place] [address] 06/28/2025 9:00 AM EDT Office Visit [facility] MED[facility]INE [address] [place] [address] 36[address] Xuan Mckeon MD [address] [place] [address] 12490 documented as of this encounter Goals Goal [...] documented as of this encounter Care Teams Key Punch Teacher Relationship Specialty Start Date End Date Xuan Mckeon MD [address] [place] [address] PCP - General Family Medicine 09/20/20 Yariel Schmid PharmD [address] [place] [address] 09209 Pharmacist Internal Medicine 11/23/22 documented as of this encounter
--- OUTSIDE RECORDS SUMMARY | 2025-05-26 04:06 | XMS_ITS | Encounter Summary ---
Author Organization [employer] Address [address] [facility] 7t [place] [address] Care Team Providers Care Stretcher Leveler Operator Helper Name Role Phone Xuan Mckeon MD Primary Care Provider [phone] Yariel Schmid PharmD Unavailable [phone] Reason for Visit * Reason Comments Med Refill Encounter Details Date Type Department Care Team ([facility] st Contact Info) Description 02/23/2025 Refill [facility] 230 [place], [place] [phone] Xuan Mckeon MD 230 [place], [place] [phone] Other specified anxiety disorders Social History Tobacco [...] Description 05/30/2025 9:00 AM EDT Medication Management [address] [address] Yariel Schmid, PharmD [address] [place] [address] 1985[address] 06/28/2025 9:00 AM EDT Office Visit [facility] [address] [place] [address] Xuan Mckeon MD [address] [place] [address] 8[address] documented as of this encounter Goals Goal [...] documented as of this encounter Care Teams Stretcher Leveler Operator Helper Relationship Specialty Start Date End Date Xuan Mckeon MD [address] [place] [address], [place] [address] PCP - General Family Medicine 09/20/20 Yariel Schmid, Leelee [address] [place] [address] Pharmacist Internal Medicine 11/23/22 documented as of this encounter
--- OUTSIDE RECORDS SUMMARY | 2025-05-26 04:06 | XMS_ITS | Encounter Summary ---
Author Organization [employer] [facility] Address [address] [place] [address] 7t [place] [address] Care Team Providers Care Television Picture Tube Rebuilder Name Role Phone Xuan Mckeon MD Primary Care Provider [phone] Yariel Schmid PharmD Unavailable [phone] Reason for Visit * Reason Comments Med Refill Encounter Details Date Type Department Care Team (Late Contact Info) Description 04/07/2023 Refill [facility] MEDICINE [address] [place] [address] [phone] Xuan Mckeon MD [address] [place] [address] [phone] Vitamin B12 deficiency Social History Tobacco Use [...] [facility] 230 [place], [place] [phone] Yariel Schmid, PharmD 230 [place], [place] [phone] 06/28/2025 9:00 AM EDT Office Visit [facility]INE [address] [place] [address] Xuan Mckeon MD [address] [place] [address] documented as of this encounter Goals Goal [...] documented as of this encounter Care Teams Television Picture Tube Rebuilder Relationship Specialty Start Date End Date Xuan Mckeon MD 230 [place] [address] PCP - General Family Medicine 09/20/20 Yariel Schmid, PharmD [address] [place] [address] Pharmacist Internal Medicine 11/23/22 documented as of this encounter
--- OUTSIDE RECORDS SUMMARY | 2025-05-26 04:06 | XMS_ITS | Encounter Summary ---
Author Organization [employer] Address [address] [facility] 7t [place] [address] Care Team Providers Care Wallpaper Embosser Helper Name Role Phone Xuan Mckeon MD Primary Care Provider [phone] Yariel Schmid PharmD Unavailable [phone] Reason for Visit * Reason Comments Med Refill Encounter Details Date Type Department Care Team ([facility] st Contact Info) Description 10/18/2024 Refill [facility] MED[facility]INE 230 [place], [place] [phone] Xuan Mckeon MD 230 [place], [place] [phone] Fibromyalgia Social History Tobacco Use Types Packs/Day [...] Upcoming Encounters Date Type Department Care Team ([facility] st Contact Info) Description 05/30/2025 9:00 AM EDT Medication Management [facility] MED[facility]INE [address] [place] [phone] Yariel Schmid, PharmD [address] [place] [address] 06/28/2025 9:00 AM EDT Office Visit [facility]INE [address] [place] [address] 296[address] Xuan Mckeon MD [address] [place] [address] documented as of this encounter Goals Goal [...] documented as of this encounter Care Teams Wallpaper Embosser Helper Relationship Specialty Start Date End Date Xuan Mckeon MD [address] [place] [address] PCP - General Family Medicine 09/20/20 Yariel Schmid, Leelee [address] [place] [address] 298[address] Pharmacist Internal Medicine 11/23/22 documented as of this encounter
--- OUTSIDE RECORDS SUMMARY | 2025-05-26 04:06 | XMS_ITS | Clinical Summary ---
Author Organization [facility] Address [id number] [place] [address] Care Team Providers Care Curator Zo[employer] Name Role Phone Unavailable Primary Care Provider [...]
--- OUTSIDE RECORDS SUMMARY | 2025-05-26 04:06 | XMS_ITS | Encounter Summary ---
Author Organization [employer] Address [address] [facility] [address] 7t [place] [address] Care Team Providers Care Bend Sorter Name Role Phone Xuan Mckeon MD Primary Care Provider [phone] Yariel Schmid PharmD Unavailable [phone] Encounter Details Date Type Department Care Team ([facility] st Contact Info) Description 12/24/2023 Orders Only [facility] 230 [place], [place] [phone] Xuan Mckeon MD 230 [place], [place] [phone] Dermatitis (Primary Dx) Social History Tobacco Use [...] Upcoming Encounters Date Type Department Care Team ([facility] Contact Info) Description 05/30/2025 9:00 AM EDT Medication Management [facility] [address] [place] [address] Yariel Schmid, PharmD [address] [place] [address] 06/28/2025 9:00 AM EDT Office Visit [facility] [address] [place] [address] Xuan Mckeon MD [address] [place] [address] documented as of this encounter Goals Goal Patient Goal Type Associated Problems Recent Progress Patient-Stated? Author Blood Pressure < 140/90 Blood Pressure 120/84( 025 10:48 AM EDT) No aYriel Schmid, PharmD documented as of this encounter Visit Diagnoses Diagnosis Dermatitis- Primary Contact dermatitis and other eczema, due to unspecified cause documented in this encounter Additional Health Concerns Assessment Noted Time PHQ-9 Depression Total Score: 4 12/18/19 23 10:48 AM EDT documented as of this encounter Care Teams Bend Sorter Relationship Specialty Start Date End Date Xuan Mckeon MD [address] [place] [address] PCP - General Family Medicine 09/20/20 Yariel Schmid, PharmD 230 [place] [address] Pharmacist Internal Medicine 11/23/22 documented as of this encounter
--- OUTSIDE RECORDS SUMMARY | 2025-05-26 04:06 | XMS_ITS | Encounter Summary ---
Author Organization [employer] Address [address] [facility] [address] 7t [place] [address] Care Team Providers Care Information Strategist Name Role Phone Xuan Mckeon MD Primary Care Provider [phone] Yariel Schmid PharmD Unavailable [phone] Encounter Details Date Type Department Care Team (Late st Contact Info) Description 05/23/2025 Orders Only [facility] EXTERNAL DATA DEPARTMENT Provider, Generic External Data Social History Tobacco Use Types Packs/Day Years [...] Description 05/30/2025 9:00 AM EDT Medication Management [facility] MEDICINE [address] [place] [address] Yariel Schmid, PharmD [address] [place] [address] 06/28/2025 9:00 AM EDT Office Visit [facility] [address] [place] [address] Xuan Mckeon MD [address] [place] [address]39 documented as of this encounter Goals Goal Patient Goal Type Associated Problems Recent Progress Patient-Stated? Author Blood Pressure < 140/90 Blood Pressure 120/84( 025 10:48 AM EDT) No Yariel Schmid, PharmD documented as of this encounter Procedures Procedure Name Priority Date/Time Associated Diagnosis Comments URINALYSIS, COMPLETE Routine 05/23/2025 8:42 AM EDT BASIC METABOLIC PANEL Routine 05/23/2025 8:42 AM EDT documented in this encounter Results * (ABNORMAL) Basic Metabolic Panel (05/23/2025 8:42 AM EDT) Sodium 134(L) 135 - 145 mmol/L [facility] Potassium 4.2 3.3 - 5.1 mmol/L [facility] Chloride 98 96 - 108 mmol/L [facility] Carbon Dioxide 28 22 - 29 mmol/L [facility] Anion Gap 12 12 - 20 [facility] Urea Nitrogen (BUN) 13 9 - 16 mg/dL [facility] Creatinine, Serum 0.79 0.5 - 1.4 mg/dL [facility] Estimated Glomerular Filt Rate >60 [facility] Comment:Chronic Kidney Disea se: Estimated GFR < 60 mL/min/[id number] Kidney Disease: Estimated GFR < 15 mL/min/1.73m2 Glucose 194(H) 60 - 115 mg/dL [facility] Calcium 9.5 8.4 - 10.2 mg/dL [facility] 05/23/2025 8:42 AM EDT 05/23/2025 11:14 AM EDT us Generic External Data Provider LAB BLOOD ORDERAB LES Final Result [facility] [address] [place] [address] [phone] * (ABNORMAL) Urinalysis Complete (05/23/2025 8:42 AM EDT) Color Urine Yellow [facility] Appearance Urine Cloudy [facility] PH 6.0 5.0 - 9.0 [facility] Glucose Urine UA Negative Negative mg/dL [facility] Urine Blood Negative Negative [facility] Specific [place] - Urine 1.020 1.005 - 1.025 [facility] Urine Protein Negative Neg-Trace mg/dL [facility] Urine Ketones Trace Negative mg/dL [facility] Nitrite Urine Negative Negative [facility] Leukocyte Esterase Urine Small (1+)(A) Negative [facility] RBC Urine 0-2 0 - 2 /HPF [facility] Urine WBC 0-5 0 - 5 /HPF [facility] Urine Squamous Epithelial Cell 3-5 0 - 2 /HPF [facility] Urine Bacteria 2+ None Seen [facility] Hyaline Casts, Urine 0-2 0 - 2 /LPF [facility] 05/23/2025 8:42 AM EDT 05/23/2025 11:14 AM EDT us Generic External Data Provider LAB URINE ORDERAB LES Final Result [facility] [address] [place] [address] [phone] documented in this encounter Visit Diagnoses Not on filedocumented in this encounter Additional Health Concerns Assessment Noted Time PHQ-9 Depression Total Score: 0 05/15/20 25 10:49 AM EDT documented as of this encounter Care Teams Information Strategist Relationship Specialty Start Date End Date Xuan Mckeon MD 230 [place] [address] PCP - General Family Medicine 09/20/20 Yariel Schmid, CristóbalD [address] [place] [address] Pharmacist Internal Medicine 11/23/22 documented as of this encounter
--- OUTSIDE RECORDS SUMMARY | 2025-05-26 04:06 | XMS_ITS | Encounter Summary ---
Author Organization [employer] Address [address] [facility] [address] 7t [place] [address] Care Team Providers Care Loading Dock Hand Name Role Phone Xuan Mckeon MD Primary Care Provider [phone] Yariel Schmid PharmD Unavailable [phone] Reason for Visit * Reason Onset Date Comments Lab Orders 05/22/2025 Encounter Details Date Type Department Care Team (Late st Contact Info) Description 05/22/2025 Telephone [facility] 230 [place], [place] [phone] Xuan Mckeon MD 230 [place] [address] Lab Orders Social History Tobacco Use Types [...] PM EDT Telephone call to pt via [facility] [phone]. Pt needs [facility] for [facility] at [address] [place] [address]. Placed order per protocol. Pt verbalized understanding. * Telephone Encounter - Jagruti Rios - 05/22/2025 12:34 PM EDT Patient walked in requesting lab for TB - need for adult program documented in this encounter Plan of Treatment Upcoming Encounters Date Type Department Care Team ([facility] Contact Info) Description 05/30/2025 9:00 AM EDT Medication Management [facility] [address] [place] [address] [place] [address] Yariel Schmid, [place] [address] 06/28/2025 9:00 AM EDT Office Visit [facility] [address] [place] [address] Xuan Mckeon MD 230 [facility] [place] [address] Scheduled Orders Name Type Priority Associated Diagnoses [...] documented as of this encounter Care Teams Loading Dock Hand Relationship Specialty Start Date End Date Xuan Mckeon MD [place] [address] PCP - General Family Medicine 09/20/20 Yariel Schmid, PharmD [facility] [place] [address] Pharmacist Internal Medicine 11/23/22 documented as of this encounter
--- OUTSIDE RECORDS SUMMARY | 2025-05-26 04:06 | XMS_ITS | Encounter Summary ---
Author Organization [email or web address] Address 75 [facility] 7t [place] [address] Care Team Providers Care Car Seat Maker Name Role Phone Xuan Mckeon MD Primary Care Provider [phone] Yariel Schmid PharmD Unavailable [phone] Reason for Referral * Consultation (Routine) - Authorized Specialty Diagnoses / Procedures Referred By Contac t Referred To Contact Pharmacy Diagnoses Primary hypertension Type 2 diabetes mellitus without complication, without long-term current use of insulin (CMS/HCC) Xuan Mckeon MD 230 [place] [address] Phone: tel: fax: Referral ID Status Reason Start Date Expiration Date Visits Requested Visits Authorized [id number] Authorized Consult and Treat 07/18/2024 07/18/2025 6 6 Encounter Details Date Type Department Care Team (Late st Contact Info) Description 07/18/2024 Orders Only [facility] MED[facility]INE [address] [place] [address] [phone] Xuan Mckeon MD 230 [place], [place] [phone] Primary hypertension (Primary Dx); Type 2 diabetes [...] EDT Medication Management [facility] [address] [place] [address] Yariel Schmid, CristóbalD [address] [place] [address] 06/28/2025 9:00 AM EDT Office Visit [facility] [address] [place] [address] Xuan Mckeon MD 230 [place] [address] Scheduled Referrals Name Type Priority Associated Diagnoses Orde r Schedule Referral to Pharmacy CDTM Outpatient Referral Routine Primary hypertension Type 2 diabetes mellitus without complication, without long-term current use of insulin ([facility]) Ordered: 07/18/2024 documented as of this encounter Goals Goal Patient Goal Type Associated Problems Recent Progress Patient-Stated? Author Blood Pressure < 140/90 Blood Pressure 120/84( 025 10:48 AM EDT) No Yariel Schmid, Leelee documented as of this encounter Visit Diagnoses Diagnosis Primary hypertension- Primary Unspecified essential hypertension Type 2 diabetes mellitus without complication, without long-term current use of insulin ([facility]) documented in this encounter Additional Health Concerns Assessment Noted Time PHQ-9 Depression Total Score: 11 024 10:30 AM EDT documented as of this encounter Care Teams Car Seat Maker Relationship Specialty Start Date End Date Xuan Mckeon MD [address] [place] [address] PCP - General Family Medicine 09/20/20 Yareil Schmid, CristóbalD [address] [place] [address] Pharmacist Internal Medicine 11/23/22 documented as of this encounter
--- OUTSIDE RECORDS SUMMARY | 2025-05-26 04:06 | XMS_ITS | Clinical Summary ---
Author Organization [employer] Address [address] [place] [address] Care Team Providers Care [employer] Name Role Phone Xuan Mckeon MD Primary Care Provider [phone] Yariel Schmid PharmD Unavailable [phone] Allergies Active Allergy Reactions Criticality Noted Date [...] without long-term current use of insulin ([facility]) USE TWICE DAILY 100 each 11 [...] without long-term current use of insulin ([facility]) TEST BLOOD SUGAR TWICE DAILY 100 [...] has already been seen and treated by accounts payable specialist. She states she could not complete [...] has already been seen and treated by accounts payable specialist. She states she could not complete [...] has already been seen and treated by accounts payable specialist. She states she could not complete [...] Plan (12/17/2022 11:27 AM EDT): Seen by [employer] N[employer]er, Dr. Karimi, on 11/26/22. Reported exertional Cheat Pain Stress Test was ordered -will check status Chronic low back pain 10/04/2022 Assessment & Plan (10/04/2022 5:48 AM EST): Continue judicious use of APAP and cyclobenzaprine Strain of trapezius muscle 09/29/2022 Primary hypertension 09/29/2022 Assessment & Plan (05/15/2025 5:55 AM EDT): -Goal BP < 130/80 per ACC/AHA -BP not at goal today -Co-managed with embroidery designer and PharmD. -pt advised to continue checking BP at home -embroidery designer: Dr. Karimi, last visit in 12/06/24; exertional dyspnea. Possible evaluation with CTA or coronary angiography -normal Holter monitor and echo -continue working on lifestyle modifications -continue losartan 100 mg daily -continue metoprolol succinate 100 mg daily - start spironolactone - hctz 25-25 mg daily (history of hypokalemia on KCl supplement) as prescribed by senior care specialist Previous Treatment: -discontinued HCTZ and replaced chlorthalidone. [...] -BP not at goal today -Co-managed with embroidery designer and PharmD. -pt advised to continue checking BP at home -embroidery designer: Dr. Karimi, last visit in 12/06/24; exertional dyspnea. Possible evaluation with CTA or coronary angiography -normal Holter monitor and echo -continue working on lifestyle modifications -continue losartan 100 mg daily -continue metoprolol succinate 100 mg daily - start spironolactone - hctz 25-25 mg daily (history of hypokalemia on KCl supplement) as prescribed by senior care specialist Previous Treatment: -discontinued HCTZ and replaced chlorthalidone. [...] -BP not at goal today -Co-managed with embroidery designer and PharmD. -pt advised to continue checking BP at home -embroidery designer: Dr. Karimi, last visit in 11/26/22; exertional [...] -BP not at goal today -Co-managed with embroidery designer and PharmD. -pt advised to continue checking BP at home -embroidery designer: Dr. Karimi, last visit in 11/26/22; exertional [...] -BP not at goal today -Co-managed with embroidery designer and PharmD. -pt advised to continue checking BP at home -embroidery designer: Dr. Karimi, last visit in 11/26/22; exertional [...] < 130/80 per ACC/AHA - co-managed with embroidery designer and PharmD. -pt advised to continue checking BP at home -embroidery designer: Dr. Karimi, last visit in 11/26/22; exertional [...] < 130/80 per ACC/AHA - co-managed with embroidery designer and PharmD. -pt advised to continue checking BP at home -embroidery designer: Dr. Karimi, last visit in 11/26/22; exertional [...] advised to continue checking BP at home -embroidery designer: Dr. Karimi, last visit in 11/26/22; exertional [...] advised to continue checking BP at home -embroidery designer: Dr. Karimi, last visit in 07/06/22; concerns [...] on 07/03/22 - Started on Plavix by embroidery designer; ASA was discontinued due to GI bleed - Continue statin, clopidogrel, and losartan - Continue working on lifestyle modification / risk factor management Assessment & Plan (01/14/2025 5:04 PM EDT): - seen in ED on 07/03/22 - Started on Plavix by embroidery designer; ASA was discontinued due to GI bleed - Continue statin, clopidogrel, and losartan - Continue working on lifestyle modification / risk factor management Assessment & Plan (05/30/2024 11:03 AM EDT): - seen in ED on 07/03/22 - Started on Plavix by embroidery designer; ASA was discontinued due to GI bleed - Continue statin, clopidogrel, and losartan - Continue working on lifestyle modification / risk factor management Assessment & Plan (11/30/2023 4:38 AM EDT): - seen in ED on 07/03/22 - Started on Plavix by embroidery designer; ASA was discontinued due to GI bleed - Continue statin, clopidogrel, and losartan - Continue working on lifestyle modification / risk factor management Assessment & Plan (12/17/2022 11:23 AM EDT): - seen in ED on 07/03/22 - Started on Plavix by embroidery designer; ASA was discontinued due to GI bleed - Continue statin, clopidogrel, and losartan - Continue working on lifestyle modification / risk factor management Assessment & Plan (10/04/2022 5:51 AM EST): - seen in ED on 07/03/22 - Started on Plavix by embroidery designer; ASA was discontinued due to GI bleed [...] left adrenal cyst - repeating CT by senior care specialist Assessment & Plan (06/14/2023 3:20 PM EDT): [...] last on treated at [facility] on 04/2012 Assessment & Plan [...] Encounters Date Type Department Care Team Description 05/23/2025 Orders Only GENERIC EXTERNAL DATA DEPARTMENT Provider, Generic External Data 05/22/[address] [address] Xuan Mkceon MD Lab Orders 05/15/2025 10:30 AM EDT Office Visit [address] [address] Xuan Mckeon MD Type 2 diabetes mellitus without complication, without long-term current use of insulin ([facility]) (Primary Dx); Primary hypertension; Dyslipidemia; Obstructive sleep apnea syndrome; TIA (transient ischemic attack); Allergic reaction, sequela 05/15/2025 Travel 05/14/2025 Telephone [facility] [address] [place] [address] Xuan Mckeon MD chart prep 05/09/2025 Orders Only [facility] External Provider, [facility] 05/01/2025 Refill [facility] [address] [place] [address] Xuan Mckeon MD 03/21/20[address] [place] [address] Xuan Mckeon MD may03/02/2025 Refill [facility] [address] [place] [address] Xuan Mckeon MD Other specified anxiety disorders 02/23/2025 Refill [facility] [address] [place] [address] Xuan Mckeon MD Other specified anxiety disorders from Last 3 Months Immunizations Immunization Administration [...] Description 05/30/2025 9:00 AM EDT Medication Management [facility] [address] [place] [phone] Yariel Schmid, PharmD [address] [place] [address] 06/28/2025 9:00 AM EDT Office Visit [facility] [address] [place] [address] [place] [address] Xuan Mckeon MD [address] [place] [address] Health Maintenance Due Date Last Done Comments [...] 01/11/2025 01/12/2024, 01/03/2024 Eye Exam 02/23/2025 02/23/2023, 0610/2015, 01/31/2015, Additional history exists COVID-19 Vaccine ( season) 2025 07/23/2021, 12/18/2020 Influenza Vaccine (#1) 2025 , 06/25/2023, 06/01/2022, Additional history exists Diabetes: Foot Exam 05/30/2025 05/30/2024, 05/30/2024, 05/30/2024, Additional history exists Diabetes: Hemoglobin A1C 08/14/2025 025, 01/11/2025, 10/10/2024, Additional history exists Alcohol/Substance Use Screening 09/18/2025 09/18/2024 Diabetes: Urine Protein Screening 11/08/2025 11/08/2024, 06/08/2024, 06/16/2023, Additional history exists Lipid Panel 11/08/2025 11/08/2024, 10/0 11/2023, 06/16/2023, Additional history exists Depression Screening 05/15/2026 05/15/2025, 05/15/20 25 SDOH Screening 05/15/2026 05/15/2025 Tobacco Screening 05/15/2026 [...] 10:48 AM EDT) No Yariel Schmid, Leelee Procedures Procedure Name Priority Date/Time Associated Diagnosis Comments BASIC METABOLIC PANEL Routine 05/23/2025 8:42 AM EDT URINALYSIS, COMPLETE Routine 05/23/2025 8:42 AM EDT POCT GLYCOSYLATED HEMOGLOBIN (HGB A1C) Routine 05/15/2025 10:49 AM EDT Type 2 diabetes mellitus without complication, without long-term current use of insulin ([facility]) POCT GLUCOSE Routine 05/15/2025 10:47 AM EDT Type 2 diabetes mellitus without complication, without long-term current use of insulin (CMS/HCC) COVID-19 ID NOW ([place]) Routine 05/09/2025 3:07 AM EDT INFLUENZA A [...] Relevant to Health Maintenance Results * (ABNORMAL) Urinalysis Complete (05/23/2025 8:42 AM EDT) Color Urine Yellow [facility] Appearance Urine Cloudy [facility] PH 6.0 5.0 - 9.0 [facility] Glucose Urine UA Negative Negative mg/dL [facility] Urine Blood Negative Negative [facility] Specific [place] - Urine 1.020 1.005 - 1.025 [facility] Urine Protein Negative Neg-Trace mg/dL [facility] Urine Ketones Trace Negative mg/dL [facility] Nitrite Urine Negative Negative [facility] Leukocyte Esterase Urine Small (1+)(A) Negative [facility] RBC Urine 0-2 0 - 2 /HPF [facility] Urine WBC 0-5 0 - 5 /HPF [facility] Urine Squamous Epithelial Cell 3-5 0 - 2 /HPF [facility] Urine Bacteria 2+ None Seen [facility] Hyaline Casts, Urine 0-2 0 - 2 /LPF [facility] 05/23/2025 8:42 AM EDT 05/23/2025 11:14 AM EDT us Generic External Data Provider LAB URINE ORDERAB LES Final Result Performing Organization Address City/State/[facility] Co de Phone Number [facility] [address] [place] [phone] * (ABNORMAL) Basic Metabolic Panel (05/23/2025 8:42 AM EDT) Sodium 134(L) 135 - 145 mmol/L [facility] Potassium 4.2 3.3 - 5.1 mmol/L [facility] Chloride 98 96 - 108 mmol/L [facility] Carbon Dioxide 28 22 - 29 mmol/L [facility] Anion Gap 12 12 - 20 [facility] Urea Nitrogen (BUN) 13 9 - 16 mg/dL [facility] Creatinine, Serum 0.79 0.5 - 1.4 mg/dL [facility] Estimated Glomerular Filt Rate >60 [facility] Comment:Chronic Kidney Disea se: Estimated GFR < 60 mL/min/1.79b1Lvseri Kidney Disease: Estimated GFR < 15 mL/min/1.73m2 Glucose 194(H) 60 - 115 mg/dL [facility] Calcium 9.5 8.4 - 10.2 mg/dL [facility] 05/23/2025 8:42 AM EDT 05/23/2025 11:14 AM EDT Generic External Data Provider LAB BLOOD ORDERAB LES Final Result [facility] [address] [place] [phone] * (ABNORMAL) POCT glycosylated hemoglobin (Hgb A1c) (05/15/2025 10:49 AM EDT) Hemoglobin A1C 6.4(A) 4.0 - 5.7 % QC Media Lot # [id number] Lot# Expiration Date [id number] Blood Capillary blood specimen / Unknown 05/15/2025 10:49 AM EDT Xuan Mckeon MD POINT OF CARE TEST ENTER/EDIT OR DERABLES Final Result * POCT glucose manually resulted (05/15/2025 10:47 AM EDT) Pathologist [facility] Glucose Blood, POC 154 60 - 200 mg/dL QC Media Lot # [id number] Lot# Expiration Date ,821,681 Blood Capillary blood specimen / Unknown 05/15/2025 10:47 AM EDT Xuan Mckeon MD POINT OF CARE TEST ENTER/EDIT OR DERABLES Final Result * Influenza A B2 ID NOW ([place]) (05/09/2025 3:07 AM EDT) IDNOW SERIAL# [id number] [facility] Influenza A Negative Negative [facility] Influenza B2 Negative Negative [facility] Influenza A B2 Note See Note [facility] Comment:The Olea ID NOW In fluenza [...] LAB MICROBIOLOGY - GENERAL ORDERABLES Final Result [facility] [address] [place] [phone] * COVID-19 ID NOW ([place]A) (05/09/2025 3:07 AM EDT) IDNOW SERIAL# [id number] [facility] COVID-19 TEST Negative Negative [facility] COVID-19 NOTE See Note [facility] Comment: Results are for the identification of SARS-CoV2 RNA. TheSARS-CoV2 RNA is generally detectable in respiratory samplesduring the acute phase of infection. Positive results areindicative of the presence of SARS-CoV-2 RNA; clinicalcorrelation with patient history and other diagnosticinformation is necessary to determine patient infectionstatus. Positive results do not rule out bacterial infectionor co- infection with other viruses.Testing facilities within the [facility] and itsterritories are required to report all [...] use by authorized laboratories.Testing performed on the Appies ID NOW utilizing NAAT. 05/09/2025 3:07 AM EDT 05/09/2025 3:12 AM EDT us Generic External Data Provider LAB MOLECULAR SHENA GNOSTICS ORDERABLES Final Result Performing Organization Address City/State/[facility] Co de Phone Number [facility] [address] [place] [phone] * XR Chest 1 View (05/09/2025 1:13 AM EDT) Anatomical Region Laterality Modality Chest Radiographic Tracie ging 05/09/2025 1:13 AM EDT Narrative 05/09/2025 1:15 AM EDT [address] [address] XRay Report Signed Patient: Che Person MR #: [id number] : 1950 Acct:[id number] Age/Sex: 74 / F ADM Date: 05/09/25 Loc: HO.ED Attending Dr: Ordering Physician: Generic ED Physician Date of Service: 05/09/25 Procedure(s): XR chest 1V Accession Number(s): [id number] cc: Generic ED Physician; Xuan Mckeon MD [...] in OV> 05/09/25113 DD/ 2 TD/TT: 05/09/25112 Car Shunter: Procedure Note Donotuseinterpreter, Image - 05/09/[address] [address] XRay Report Signed Patient: Greta PersonR #: [id number] : 1950cct:[id number] Age/Sex: 74 / FADM Date: 05/09/25 Loc: HO.ED Attending Dr: Ordering Physician: Generic ED Physician Date of Service: 05/09/25 Procedure(s): XR chest 1V Accession Number(s): [id number] cc: Generic ED Physician; Xuan Mckeon MD [...] in OV> 05/09/25113 DD/ 2 TD/TT: 05/09/25112 Car Shunter: [facility] External Provider IMG XR PROCEDURES Edited Result - Final * CT abdomen w/o Contrast (03/08/2025 12:38 PM EDT) Anatomical Region Laterality Modality Body, Abdomen Computed Tomogra phy 03/08/2025 12:3 8 PM EDT Narrative 03/08/2025 1:57 PM EDT [address] [address] [address] Scan Report Signed Patient: Che Person MR #: [id number] : 1950 Acct:[id number] Age/Sex: 74 / F ADM Date: 03/08/25 Loc: HO.CT Attending Dr: Tate Gracia MD Ordering Physician: Tate Gracia MD Date of Service: 07/03/25 Procedure(s): CT abdomen wo IV con Accession Number(s): [id number] cc: Tate Gracia MD; Xuan Mckeon MD Report Number: [id number]: Total DLP = 293.00 mGy-cm EXAMINATION: CT [...] 03/08/25 1354 DD/ 1238 TD/TT: 03/08/25 1300 Car Shunter: Procedure Note Donotuseinterpreter, Image - 03/08/[address] [place] [address] [address] Scan Report Signed Patient: Alexis Person #: [id number] : 1950cct:[id number] Age/Sex: 74 / FADM Date: 03/08/25 Loc: HO.CT Attending Dr: Tate Gracia MD Ordering Physician: Tate Gracia MD Date of Service: 03/08/25 Procedure(s): CT abdomen wo IV con Accession Number(s): [id number] cc: Tate Gracia MD; Xuan Mckeon MD Report Number: [id number]: Total DLP = 293.00 mGy-cm EXAMINATION: CT [...] 03/08/25 1354 DD/ 1238 TD/TT: 03/08/25 1300 Car Shunter: us [facility] External Provider IMG CT PROCEDURES Edited Result - Final * (ABNORMAL) Lipid Panel with Reflex to Direct LDL (11/08/2024 9:12 AM EST) Triglycerides 229(H) <150 mg/dL [facility] Comment:Desirable Triglyceri de: less than 150 mg/dLBorderline High Triglyceride 150-199 mg/dLHigh Triglyceride: 200-499 mg/dLVery High Triglyceride: greater than or equal to 5OO mg/dL Cholesterol 166 <200 mg/dL [facility] Comment:Desirable Cholestero l: less than 200 mg/dLBorderline High Cholesterol: 200-239 mg/dLHigh Cholesterol: greater than 239 mg/dL LDL Cholesterol Calculated 83 <100 mg/dL [facility] Comment:Desirable LDL: less than 100 mg/dLNear Optimal/Above Optimal LDL: 110- 129 mg/dLBorderline High LDL: 130-159 mg/dLHigh LDL: 160-189 mg/dLVery High LDL: greater than or equal to 190 mg/dL HDL Cholesterol 38(L) >40 mg/dL [facility] Comment:Desirable HDL: great er than 40 mg/dL Note: This HDL assay may give artificially low results in patients with liver disease. Blood 11/08/2024 9:12 AM EST 11/08/2024 11:25 AM EST us Xuan Mckeno MD LAB BLOOD ORDERABLES Final Resul t Performing Organization Address City/[facility] Co de Phone Number [facility] [address] [place] [phone] * Albumin, Random Urine W/Creatinine (11/08/2024 9:12 AM EST) Creatinine, Urine 161.01 mg/dL [facility] Microalbumin Urine 6.0 mg/L [facility] Microalbum Creatinine Ratio Ur 3.7 <30 ug/mg cr [facility] Comment:Albumin/Creatinine R atio Reference Ranges: Normal: < 30 ug/mg creatinine Microalbuminuria: 30 - 300 ug/mg creatinineClinical Albuminuria: > 300 ug/mg creatinine Urine 11/08/2024 9:12 AM EST 11/08/2024 11:25 AM EST us Xuan Mckeon MD LAB URINE ORDERABLES Final Resul t Performing Organization Address City/[facility]/ZIP Co de Phone Number [facility] [address] [place] [phone] * BI Mammogram Screening Tomosynthesis Bilateral (2024 9:15 AM EDT) Anatomical Region Laterality Modality Breast Bilateral Mammography 2024 9:15 AM EDT Narrative 06/15/2024 7:13 PM EDT [facility] [address] [place], [place] [address] Mammography Report Signed Patient: Che Person MR #: [id number] : 1950 Acct:[id number] Age/Sex: 74 / F ADM Date: 06/06/24 Loc: HO.MAMMO Attending Dr: Xuan Mckeon MD Ordering Physician: Xuan Mckeon MD Results: 1Negative Date of Service: 06/06/24 Follow Up: 1 Year From [facility] ina Mammogram Procedure(s): MM tomosynthesis screening BI Accession Number(s): [id number] cc: Xuan Mckeon MD EXAMINATION: MM SCREENING [...] in OV> 06/15/241909 DD/ 4 TD/TT: 06/06/24919 Car Shunter: Procedure Note Donotuseinterpreter, Image - 06/15/2024 [facility] [address] [place], [place] [address] Mammography Report Signed Patient: Alexis Person #: [id number] : 1950cct:[id number] Age/Sex: 74 / FADM Date: 06/06/24 Loc: HO.MAMMO Attending Dr: Xuan Mckeon MD Ordering Physician: Xuan Mckeon MDResults: 1Negative Date of Service: 06/06/24Follow Up: 1 Year From Orig inal Mammogram Procedure(s): MM tomosynthesis screening BI Accession Number(s): [id number] cc: Xuan Mckeon MD EXAMINATION: MM SCREENING [...] in OV> 06/15/241909 DD/ 4 TD/TT: 06/06/24919 Car Shunter: Xuan Mckeon MD IMG BI PROCEDURES Edited Result - Final * FIT DNA/Cologuard Cancer Screening (01/12/2024) Cologuard Cancer Screen Negative Stool Historical Provider HEALTH MAINTENANCE Final Result * Hm Diabetes Eye Exam (02/23/2023) Pathologist [facility] Eye Exam Normal Normal, BIRADS 0 , BIRADS 1 , BIRADS 2, BIRADS 3 , BIRADS 4+ 02/23/2023 Historical Provider HEALTH MAINTENANCE Final Result * HEPATITIS C AB W/REFL TO HCV RNA, QN, PCR (10/23/2020 8:55 AM EST) Pathologist [facility] HEPATITIS C ANTIBODY NON-REACT ADAMA NON-REACT ADAMA [facility] INDEX 0.01 <1.00 [facility] Comment: HCV antibody was non-reactive. There is no laboratory evidence of HCV infection. In most cases, no further action is required. However, if recent HCV exposure is suspected, a test for HCV RNA (test code 03971) is suggested. For additional information please refer to http://education.[employer]/faq/GFG79n6 (This link is being provided for informational/ educational purposes only.) 10/23/2020 8:55 AM EST Xuan Mckeon MD HISTORICAL/NON ORDERABLE LABS Fi nal Result [facility] [address] from Last 3 Months or Most Recently Relevant to Health Maintenance Insurance [facility] CORRECTION OPTIONS (O D-SNP) DENTAL - [facility] Care Teams [employer] English Teacher Relationship Specialty Start Date End Date Xuan Mckeon MD [address] [place], [place] PCP - General Family Medicine 09/20/20 Yariel Schmid, CristóbalD [address] [place], [place] Pharmacist Internal Medicine 11/23/22
--- OUTSIDE RECORDS SUMMARY | 2025-05-26 04:06 | XMS_ITS | Encounter Summary ---
Author Organization [employer] Address [address] [place] [address] Care Team Providers Care Senior Care Specialist Name Role Phone Xuan Mckeon MD Primary Care Provider [phone] Yariel Schmid PharmD Unavailable [phone] Encounter Details Date Type Department Care Team ([facility] st Contact Info) Description 09/20/2024 Orders Only [facility] MED[facility]INE [address] [place], [place] [phone] Xuan Mckeon MD [address] [place], [place] [phone] Left lower quadrant abdominal pain (Primary Dx); [...] 9:00 AM EDT Medication Management [facility] MEDICINE [address] [place] [phone] Yariel Schmid, PharmD [address] [place] [phone] 06/28/2025 9:00 AM EDT Office Visit [facility] MED[facility]INE [address] [place] [phone] Xuan Mckeon MD [address] [place] [phone] documented as of this encounter Goals Goal [...] Sedimentation Rate 25(H) 0 - 20 MM/HR [facility] Comment:Patients with polycy themia and many hemoglobin abnormalitiesmay have depressed sed rates whereas patients with anemiamay have elevated sed rates. Blood Venous blood specimen / Unknown 09/21/2024 9:16 AM EST 09/21/2024 11:12 AM EST Xuan Mckeon MD LAB BLOOD ORDERABLES Final Resul t Performing Organization Address [facility]/ZIP Co de Phone Number [facility] [address] [place] [phone] * (ABNORMAL) C-reactive Protein (09/21/2024 9:16 AM EST) Pathologist [facility] C Reactive Protein 0.96(H) < or = 0.50 mg/dL [facility] Blood Venous blood specimen / Unknown 09/21/2024 9:16 AM EST 09/21/2024 11:12 AM EST Xuan Mckeon MD LAB BLOOD ORDERABLES Final Resul t [facility] [address] [place] [phone] * (ABNORMAL) CBC auto differential (09/21/2024 9:16 AM EST) White Blood Count 6.2 4.8 - 10.8 X10*3/uL [facility] Red Blood Count 3.99(L) 4.20 - 5.50 X10*6/uL [facility] Hemoglobin 12.4 12.0 - 16.0 g/dl [facility] Hematocrit 36.3(L) 37.0 - 47.0 % [facility] Mean Corpuscular Volume 91.0 80.0 - 98.0 fL [facility] Mean Corpuscular Hemoglobin 31.1 27.0 - 33.0 pg [facility] Mean Corpuscular HGB Conc 34.2 31.0 - 35.0 g/dl [facility] Red Cell Distribution Width 12.5 11.0 - 16.0 % [facility] Platelet Count 288 160 - 400 X10*3/uL [facility] Mean Platelet Volume 10.5 9.4 - 12.3 fL [facility] Neutrophils Percent Auto 70.5 45 - 73 % [facility] Imm Gran Pct Auto 0.3 0.0 - 0.4 % [facility] Lymphocytes Percent Auto 20.0 20 - 40 % [facility] Monocytes Percent Auto 7.1 2 - 11 % [facility] Eosinophils Percent Auto 1.6 0 - 4 % [facility] Basophils Percent Auto 0.5 0 - 2 % [facility] NRBC Pct Auto 0.0 0.0 - 0.2 /100WBC [facility] Neutrophils Absolute Auto 4.3 2.0 - 8.3 x10*3/uL [facility] Imm Gran Abs Auto 0.02 0.00 - 0.03 X10*3/uL [facility] Lymphocytes Absolute Auto 1.2 1.2 - 4.9 X10*3/uL [facility] Monocytes Absolute Auto 0.4 0.1 - 1.2 X10*3/uL [facility] Eosinophils Absolute Auto 0.1 0.0 - 0.4 X10*3/uL [facility] Basophils Absolute Auto 0.0 0.0 - 0.2 X10*3/uL [facility] NRBC Abs Auto 0.000 0.0 - 0.012 X10*3/uL [facility] Blood Venous blood specimen / Unknown 09/21/2024 9:16 AM EST 09/21/2024 11:12 AM EST Xuan Mckeon MD LAB BLOOD ORDERABLES Final Resul t [facility] [address] [place] [phone] documented in this encounter Visit Diagnoses Diagnosis Left lower quadrant abdominal pain- Primary Diverticulitis Diverticulitis of colon (without mention of hemorrhage) documented in this encounter Additional Health Concerns Assessment Noted Time PHQ-9 Depression Total Score: 11 024 10:30 AM EDT documented as of this encounter Care Teams Senior Care Specialist Relationship Specialty Start Date End Date Xuan Mckeon MD [address] [place] [address] PCP - General Family Medicine 09/20/20 Yariel Schmid, CristóbalD [address] [place] [phone] Pharmacist Internal Medicine 11/23/22 documented as of this encounter
--- OUTSIDE RECORDS SUMMARY | 2025-05-26 04:06 | XMS_ITS | Encounter Summary ---
Author Organization [employer] Address [address] 7[address] [place] [address] Care Team Providers Care Rivet Sticker Name Role Phone Xuan Mckeon MD Primary Care Provider [phone] Yariel Schmid PharmD Unavailable [phone] Reason for Visit * Reason Onset Date Comments Appointment Request 08/23/2024 Encounter Details Date Type Department Care Team ([facility] st Contact Info) Description 08/23/2024 Telephone [facility] MEDICINE [address] [place] [address] Xuan Mckeon MD [address] [place] [address] Appointment Request Social History Tobacco Use Types [...] today's CDTM visit. Please contact pt at [phone]. (Uzbek Speaker) documented in this encounter Plan of Treatment Upcoming Encounters Date Type Department Care Team ([facility] st Contact Info) Description 05/30/2025 9:00 AM EDT Medication Management [facility] MEDICINE [address] [place] [phone] Yariel Schmid, PharmD [address] [place] [address] 06/28/2025 9:00 AM EDT Office Visit [facility] MED[facility] [address] [place] [address] [phone] Xuan Mckeon MD [address] [place] [address] documented as of this encounter Goals Goal [...] documented as of this encounter Care Teams Rivet Sticker Relationship Specialty Start Date End Date Xuan Mckeon MD [address] [place] [address] PCP - General Family Medicine 09/20/20 Yariel Schmid, PharmD [address] [place] [address] Pharmacist Internal Medicine 11/23/22 documented as of this encounter
--- OUTSIDE RECORDS SUMMARY | 2025-05-26 04:06 | XMS_ITS | Encounter Summary ---
Author Organization [employer] Address [address] [facility] 7t [place] [address] Care Team Providers Care Area Loss Prevention Manager Name Role Phone Xuan Mckeon MD Primary Care Provider [phone] Yariel Schmid PharmD Unavailable [phone] Reason for Visit * Reason Comments Med Refill Encounter Details Date Type Department Care Team ([facility] st Contact Info) Description 09/08/2023 Refill [facility] MEDICINE [address] [place], [place] [phone] Xuan Mckeon MD [address] [place], [place] [phone] Other specified anxiety disorders Social History Tobacco [...] Description 05/30/2025 9:00 AM EDT Medication Management [facility] MED[facility]INE [address] [place] [phone] Yariel Schmid PharmD [address] [place] [phone] 06/28/2025 9:00 AM EDT Office Visit [facility] MED[facility] [address] [place] [phone] Xuan Mckeon MD [address] [place] [phone] documented as of this encounter Goals Goal [...] documented as of this encounter Care Teams Area Loss Prevention Manager Relationship Specialty Start Date End Date Xuan Mckeon MD [address] [place] [address] PCP - General Family Medicine 09/20/20 Yariel Schmid PharmD [address] [place] [phone] Pharmacist Internal Medicine 11/23/22 documented as of this encounter
[2025-05-26 04:12] LABS: Alanine Aminotransferase 38 U/L (0-31); Albumin Level 4.1 g/dL (3.5-5.0); Alkaline Phosphatase 55 U/L (39-117); Anion Gap 11 (12-20); Aspartate Amino Transferase 35 U/L (5-31); Blood Urea Nitrogen 22 mg/dL (9-16); Calcium 8.7 mg/dL (8.4-10.2); Carbon Dioxide 27 mmol/L (22-29); Chloride 100 mmol/L (96-108); Creatinine Clr Calc Pharmacy 53.2; Estimated Glomerular Filt Rate > 60; Magnesium 1.8 mg/dL (1.6-2.6); Potassium 3.8 mmol/L (3.3-5.1); Sodium 134 mmol/L (135-145); Total Protein 6.2 g/dL (6.5-8.0)
[2025-05-26 04:17] LABS: COVID-19 Test Negative (Negative); IDNOW Serial# 08D9AD1C; IDNOW Serial# 6674DD1D; Influenza B2 Negative (Negative)
[2025-05-26 04:19] LABS: NT Pro B Type Natriuretic Pept 150.8 pg/mL (<300); Troponin-I High Sensitivity 4.1 ng/L (<3.5-17.0)
[2025-05-26 05:42] VITALS: BP 111/51; PULSE 76; RESP 20; TEMP 36.9; O2SAT 97
[2025-05-26 06:30] LABS: D Dimer High Sensitivity 407 NG/ML
[2025-05-26 06:37] LABS: Troponin-I High Sensitivity 11.4 ng/L (<3.5-17.0)
[2025-05-26 07:14] VITALS: PULSE 84; RESP 17; O2SAT 97
[2025-05-26 07:16] VITALS: BP 134/56; TEMP 37.6
[2025-05-26 08:13] VITALS: BP 134/56; PULSE 84; RESP 18; TEMP 37.6; O2SAT 97
== END 2025-05-26 08:50 | disposition home or self-care (01) ==
PROVIDERS: Emergency Provider Emergency Medicine
DX: J20.9 Acute bronchitis, unspecified (principal); R06.02 Shortness of breath; R06.00 Dyspnea, unspecified; Z79.899 Other long term (current) drug therapy; Z03.818 Encounter for observation for suspected exposure to other biological agents ruled out
CPT/HCPCS: 36415; 71045; 80053; 82803; 83735; 83880; 84484; 85025; 85379; 87502; 87635; 93005; 94640; 99285

== ENCOUNTER → 2025-05-26 03:35 | Outpatient (BNV) | payer OTHER, SELFPAY | PROVIDERS: Emergency Provider Emergency Medicine; Visit Provider Internal Medicine | DX: I49.3 Ventricular premature depolarization (principal) | CPT/HCPCS: 93010 ==

== ENCOUNTER → 2025-05-26 03:35 | Outpatient (BNV) | payer OTHER, SELFPAY | PROVIDERS: Emergency Provider Emergency Medicine; Visit Provider Radiology Vascular & Interventional Radiology | DX: R06.00 Dyspnea, unspecified (principal) | CPT/HCPCS: 71045 ==

== ENCOUNTER 2025-06-12 01:24 | Emergency (ER) | payer OTHER, SELFPAY ==
--- OUTSIDE RECORDS SUMMARY | 2025-06-11 13:00 | XMS_ITS | Encounter Summary ---
Author Organization [employer] Address [address] [facility] 7t [place] [address] Care Team Providers Care Cable Armorer Operator Name Role Phone Xuan Mckeon MD Primary Care Provider [phone] Yariel Schmid PharmD Unavailable [phone] Reason for Referral * Consultation (Routine) - Pending Review Specialty Diagnoses / Procedures Referred By Contac t Referred To Contact Pulmonary Disease Diagnoses Allergic reaction, sequela Bronchitis Willow Wilson MD [address] [place] [address] Phone: tel: fax: [facility] [address] [place] [address] Phone: tel: fax: Referral ID Status Reason Start Date Expiration Date Visits Requested Visits Authorized [id number] Pending Review Specialty Services Required 06/11/2025 06/11/2026 1 1 Reason for Visit * Reason Comments Shortness of Breath Encounter Details Date Type Department Care Team (Latest Contact Info) Description 06/11/2025 1:00 PM EDT Office Visit [facility] [address] [place] [phone] Willow Wilson MD [address] [place] [address] Allergic reaction, sequela (Primary Dx); Diabetic polyneuropathy associated with type 2 diabetes mellitus (HCC); Bronchitis; Fluid level behind tympanic membrane of right ear Social History Tobacco Use Types Packs/Day Years [...] Sign Reading Time Taken Comments Blood Pressure 145/82 06/11/2025 12:53 PM EDT Pulse 90 06/11/2025 12:53 PM EDT Temperature 36.4 C (97.5 F) 06/11/2025 12:53 PM EDT Respiratory Rate 19 06/11/2025 12:53 PM EDT Oxygen Saturation 98% 06/11/2025 12:53 PM EDT Inhaled Oxygen Concentration - - Weight 75.3 kg (166 lb) 06/11/2025 12:53 PM EDT Height 154.9 cm (5' 1 ) 06/11/2025 12:53 PM EDT Body Mass Index 31.37 06/11/2025 12:53 PM EDT documented in this encounter Progress Notes * Willow Wilson MD - 06/11/2025 1:00 PM EDT SUBJECTIVE: Che Weaver is a 75 y.o. female who presents for acute visit. Denies recent illness, ER visit, or hospitalization. Acute Concerns: Acute Respiratory Symptoms - Onset of symptoms on May 26, 2025, including difficulty breathing and sensation of chest tightness. - Experienced episodes of waking up at night (around 2:00 AM) with shortness of breath and feeling unable to speak due to asphyxiation. - Noted increased anxiety and fear when alone during episodes. - Reported inability to lie flat in bed due to worsened breathing; prefers sleeping in a recliner for relief. - Denies fever and sore throat since onset of symptoms. - Reports minimal sputum production described as ???flecks?? when gargling in the morning. - patient feels congestion in chest and throat. - Received oxygen therapy and medication (prednisone pills, inhaler) after ambulance transport on May 26, 2025. Diagnosed with bronchitis - Reports intermittent chest/rib pain associated with respiratory distress; describes pain as localized to the ribs and muscles around rib cage. - Multiple chest X-rays performed on May 26, 2025; results negative for acute cardiopulmonarydisease Ear/Nasal Symptoms - Noted dryness and irritation in nose and throat, especially after coughing and gargling. - Reports sensation of liquid behind right ear drum; associates with nasal/throat dryness. Emotional Distress - Expressed concern about being alone during episodes due to fear of worsening symptoms or emergency situation. - Reports difficulty sleeping through the night due to respiratory symptoms and anxiety. Patient Active Problem List Diagnosis Date Noted Dyspnea 05/26/2025 Chronic urticaria 05/26/2025 Hypokalemia 09/18/2024 Allergic reaction 09/18/2024 Edentulous maxilla 02/29/2024 Hepatic cyst 06/14/2023 Other hydronephrosis 06/14/2023 Obesity 06/14/2023 Chronic low back pain 10/04/2022 Strain of trapezius muscle 09/29/2022 Primary hypertension 09/29/2022 TIA (transient ischemic attack) 09/29/2022 Type 2 diabetes mellitus (HCC) 03/28/2020 Vitamin B12 deficiency (non anemic) 03/28/2020 Varicose veins of both lower extremities 11/11/2019 Seborrheic psoriasis 09/17/2019 Adrenal incidentaloma (CMS/HCC) 12/28/2018 Glaucoma 11/18/2018 Arthritis of knee 09/01/2018 Obstructive sleep apnea syndrome 06/16/2018 Anxiety 05/06/2018 Dyslipidemia 05/06/2018 Fibromyalgia 05/06/2018 GERD (gastroesophageal reflux disease) 05/06/2018 Diverticulosis of large intestine without hemorrhage 03/17/2016 Varicose vein of leg 01/16/2013 Diabetic neuropathy (HCC) 01/16/2013 Adrenal adenoma 05/12/2012 Rectocele, female 03/02/2012 Hemorrhoid 01/27/2012 Fatty liver disease, nonalcoholic 08/24/2011 History of diverticulitis 06/22/2011 High cholesterol 06/22/2011 Exertional chest pain 12/17/2022 Surgical History[1] Social History Social History Narrative Not on file Review of Systems Constitutional: Negative. HENT: Positive for congestion. Respiratory: Positive for cough. Cardiovascular: Negative. Gastrointestinal: Negative. Genitourinary: Negative. Musculoskeletal: Negative. Skin: Negative. OBJECTIVE: Vitals: 06/11/25 1253 BP: (!) 145/82 BP Location: Left arm Patient Position: Sitting BP Cuff Size: Adult Pulse: 90 Resp: 19 Temp: 97.5 ??F (36.4 ??C) TempSrc: Temporal SpO2: 98% Weight: 166 lb (75.3 kg) Height: 5' 1 (1.549 m) Physical Exam Vitals reviewed. Constitutional: Appearance: Normal appearance. HENT: Head: Normocephalic and atraumatic. Ears: Comments: R TM middle ear effusion Nose: Nose normal. Mouth/Throat: Mouth: Mucous membranes are moist. Pharynx: Oropharynx is clear. Posterior oropharyngeal erythema present. Eyes: Extraocular Movements: Extraocular movements intact. Conjunctiva/sclera: Conjunctivae normal. Pupils: Pupils are equal, round, and reactive to light. Cardiovascular: Rate and Rhythm: Normal rate and regular rhythm. Pulses: Normal pulses. Heart sounds: Normal heart sounds. Pulmonary: Effort: Pulmonary effort is normal. Breath sounds: Normal breath sounds. Musculoskeletal: General: Normal range of motion. Cervical back: Normal range of motion and neck supple. Skin: General: Skin is warm and dry. Capillary Refill: Capillary refill takes less than 2 seconds. Neurological: General: No focal deficit present. Mental Status: She is alert and oriented to person, place, and time. Psychiatric: Mood and Affect: Mood normal. Behavior: Behavior normal. ASSESSMENT/PLAN Assessment & Plan Upper respiratory tract irritation and inflammation: - Upper respiratory tract irritation and inflammation likely due to coughing and dryness affecting the nose and throat. - Ordered oral medication and nasal spray to address irritation, inflammation, and dryness in the nose and throat. Continue Ventolin as needed. Middle ear effusion (right ear): - Fluid accumulation behind the right tympanic membrane. - Ordered medication to help dry up the fluid behind the ear and nose. Emotional distress and sleep difficulties: - Emotional distress related to fear of being alone and sleep difficulties, including preference for sleeping in a recliner due to improved breathing. - Recommended sleeping in a recliner if breathing is improved. Advised staying with others if it helps emotional well-being. Pulmonary evaluation referral: - Need for further evaluation of pulmonary status. - Will refer to pulmonology for comprehensive lung assessment. Patient will be notified of appointment by phone or mail. Appointments - Referral to pelletizer at [facility], appointment details to be mailed via letter Problem List Items Addressed This Visit Allergic reaction - Primary Relevant Medications cetirizine (ZyrTEC) 10 MG tablet Other Relevant Orders Referral to Pulmonology Diabetic neuropathy (HCC) Overview Mild numbness Other Visit Diagnoses Bronchitis Relevant Orders Referral to Pulmonology Fluid level behind tympanic membrane of right ear Relevant Medications fluticasone (Flonase) 50 MCG/ACT nasal spray cetirizine (ZyrTEC) 10 MG tablet Follow Up: 4 months or sooner prn Allergies[2] Current Medications[3] Sami Translation: Provided by [facility] staff member DAVONTE Drew This note was drafted using Ambient (AI) technology. The patient/patient's guardian has been informed and has consented to the use of this technology: Yes [1] History reviewed. No pertinent surgical history. [2] Allergies Allergen Reactions Ioversol Anaphylaxis Bactrim [Sulfamethoxazole-Trimethoprim] Fluconazole Metronidazole Penicillin G [3] Current Outpatient Medications: albuterol 108 (90 Base) MCG/ACT inhaler, Inhale 2 puffs every 4 (four) hours if needed for wheezing., Disp: 18 g, Rfl: 0 Alcohol Swabs (Alcohol Prep) 70 % pads, USE TWICE DAILY, Disp: 100 each, Rfl: 11 amLODIPine (Norvasc) 5 MG tablet, Take 5 mg by mouth Once per day. (Patient not taking: Reported on05/31/2025), Disp: , Rfl: atorvastatin (Lipitor) 40 MG tablet, TAKE 1 TABLET BY MOUTH AT BEDTIME, Disp: 90 tablet, Rfl: 3 Blood Glucose Monitoring Suppl (ONE ProZyme ULTRA 2) w/Device kit, TEST BLOOD SUGAR TWICE DAILY, Disp: , Rfl: cetirizine (ZyrTEC) 10 MG tablet, Take 1 tablet (10 mg) by mouth Once per day., Disp: 30 tablet, Rfl: 11 clopidogrel (Plavix) 75 MG tablet, Take 75 mg by mouth in the morning., Disp: , Rfl: cyanocobalamin (Vitamin B-12) 500 MCG tablet, TAKE 1 TABLET BY MOUTH EVERY MORNING, Disp: 90 tablet, Rfl: 3 cyclobenzaprine (Flexeril) 10 MG tablet, TAKE 1 TABLET BY MOUTH ONE OR TWO TIMES DAILY NEEDED FOR MUSCLE SPASMS, Disp: 30 tablet, Rfl: 1 D3 Super Strength 50 MCG (2000 UT) capsule, TAKE 1 CAPSULE BY MOUTH EVERY MORNING, Disp: 90 capsule, Rfl: 3 dicyclomine (Bentyl) 20 MG tablet, Take 1 tablet by mouth every 6 (six) hours during the day., Disp: , Rfl: EPINEPHrine (Epipen) 0.3 MG/0.3ML injection syringe, Inject 0.3 mL (0.3 mg) as directed 1 (one) time if needed for anaphylaxis for up to 1 dose. Inject into upper leg. Call 911 after use., Disp: 1 each, Rfl: 1 fluticasone (Flonase) 50 MCG/ACT nasal spray, Administer 1-2 sprays into each nostril Once per day.Shake gently. Before first use, prime pump. After use, clean tip and replace cap., Disp: 16 g, Rfl:2 FREESTYLE LITE test strip, TEST BLOOD SUGAR TWICE DAILY, Disp: 100 strip, Rfl: 11 LORazepam (Ativan) 1 MG tablet, Take 1 tablet (1 mg) by mouth if needed in the morning and at bedtime for anxiety. Do not start before March 06, 2025., Disp: 56 tablet, Rfl: 5 losartan (Cozaar) 100 MG tablet, TAKE 1 TABLET BY MOUTH EVERY MORNING, Disp: 90 tablet, Rfl: 3 metFORMIN XR (Glucophage-XR) 500 MG 24 hr tablet, TAKE 1 TABLET BY MOUTH EVERY MORNING, Disp: 90 tablet, Rfl: 3 metoprolol succinate XL (Toprol XL) 100 MG 24 hr tablet, Take 1 tablet by mouth once daily at bedtime, Disp: 90 tablet, Rfl: 3 pantoprazole (ProtoNix) 40 MG EC tablet, TAKE 1 TABLET BY MOUTH EVERY DAY, Disp: 90 tablet, Rfl: 0 spironolactone-hydroCHLOROthiazide (Aldactazide) 25-25 MG tablet, Take 1 tablet by mouth Once per day., Disp: , Rfl: Systane 0.4-0.3 % solution, INSTILL 1 DROP IN EACH EYE NEEDED, Disp: , Rfl: TRUEplus Lancets 33G misc, TEST BLOOD SUGAR TWICE DAILY, Disp: 100 each, Rfl: 11 documented in this encounter Plan of Treatment Upcoming Encounters Date Type Department Care Team (Late st Contact Info) Description 06/13/2025 10:30 AM EDT Telemedicine [facility] [address] [place] [phone] Yariel Schmid, CristóbalD [address] [place] [address] 06/28/2025 9:00 AM EDT Office Visit [facility] [address] [place] [address] [phone] Xuan Mckeon MD [address] [place] [phone] Scheduled Referrals Name Type Priority Associated Diagnoses Order Schedule Referral to Pulmonology Outpatient Referral Routine Allergic reaction, sequela Bronchitis Expected: 06/11/2025 (Approximate), Expires: 06/11/2026 documented as of this encounter Goals Goal Patient Goal Type Associated Problems Recent Progress Patient-Stated? Author Blood Pressure < 140/90 Blood Pressure 145/82( 025 12:53 PM EDT) No Yariel Schmid, Leelee documented as of this encounter Visit Diagnoses Diagnosis Allergic reaction, sequela- Primary Diabetic polyneuropathy associated with type 2 diabetes mellitus (HCC) Bronchitis Bronchitis, not specified as acute or chronic Fluid level behind tympanic membrane of right ear documented in this encounter Additional Health Concerns Assessment Noted Time PHQ-9 Depression Total Score: 0 05/15/20 25 10:49 AM EDT documented as of this encounter Care Teams Cable Armorer Operator Relationship Specialty Start Date End Date Xuan Mckeon MD [address] [place] [address] PCP - General Family Medicine 09/20/20 Yariel Schmid, PharmD [address] [place] [address] Pharmacist Internal Medicine 11/23/22 documented as of this encounter
--- NOTE | 2025-06-12 | ECG_ITS ---
Test Reason : HTN,PALPITATIONS Blood Pressure : */* mmHG Vent. Rate : 103 BPM Atrial Rate : 103 BPM P-R Int : 162 ms QRS Dur : 96 ms QT Int : 382 ms P-R-T Axes : 55 12 50 degrees QTcB Int : 500 ms Sinus tachycardia Otherwise normal ECG When compared with ECG of 26-May-2025 03:54, Premature ventricular complexes are no longer Present Referred By: Generic ED Physician Electronically Signed By: EDDA DENNISON MD
--- NOTE | ~2025-06-12 | XR_ITS ---
CLINICAL HISTORY: pain sob 1 view chest x-ray. Comparison: CR - XR CHEST 1V - 05/26/25 03:41 EDT Findings: No consolidation, pneumothorax, or effusion. Heart size is borderline enlarged. Impression: 1. Borderline cardiomegaly. Otherwise, no acute cardiopulmonary process. No focal pulmonary consolidation. This document has been electronically signed by: Burt Blackmon MD on 06/12/2025 04:17:40
[2025-06-12 01:32] VITALS: BP 132/59; BP 180/92; PULSE 109; PULSE 110; RESP 18; TEMP 36.8; O2SAT 97; BMI 31.9
--- NOTE | 2025-06-12 01:44 | MHC.EDTECH ---
pt changed over upon arrival, ekg obtained and pt placed on monitor technician. vitals done and labs sent.
[2025-06-12 01:49] LABS: Hematocrit 33.7 % (37.0-47.0); Hemoglobin 12.0 g/dl (12.0-16.0); Imm Gran Abs Auto 0.02 X10*3/uL (0.00-0.03); Imm Gran Pct Auto 0.3 % (0.0-0.4); Lymphocytes Absolute Auto 1.5 X10*3/uL (1.2-4.9); MANUAL DIFF FLAG NO; Mean Corpuscular HGB Conc 35.6 g/dl (31.0-35.0); Mean Corpuscular Hemoglobin 32.2 pg (27.0-33.0); Mean Corpuscular Volume 90.3 fL (80.0-98.0); NRBC Abs Auto 0.000 X10*3/uL (0.0-0.012); NRBC Pct Auto 0.0 /100WBC (0.0-0.2); Platelet Count 211 X10*3/uL (160-400); Red Blood Count 3.73 X10*6/uL (4.20-5.50); White Blood Count 6.2 X10*3/uL (4.8-10.8)
[2025-06-12 02:04] LABS: Alanine Aminotransferase 16 U/L (0-31); Albumin Level 4.2 g/dL (3.5-5.0); Alkaline Phosphatase 54 U/L (39-117); Anion Gap 14 (12-20); Aspartate Amino Transferase 18 U/L (5-31); Blood Urea Nitrogen 18 mg/dL (9-16); Calcium 9.0 mg/dL (8.4-10.2); Carbon Dioxide 25 mmol/L (22-29); Chloride 102 mmol/L (96-108); Creatinine Clr Calc Pharmacy 56.4; Estimated Glomerular Filt Rate > 60; Potassium 3.6 mmol/L (3.3-5.1); Sodium 137 mmol/L (135-145); Total Protein 6.4 g/dL (6.5-8.0)
--- OUTSIDE RECORDS SUMMARY | 2025-06-12 02:05 | XMS_ITS | Encounter Summary ---
Author Organization [employer] [facility] Address [address] [facility] 7t [place] [address] Care Team Providers Care Regulatory Product Manager Name Role Phone Xuan Mckeon MD Primary Care Provider [phone] Yariel Schmid PharmD Unavailable [phone] Encounter Details Date Type Department Care Team (Latest Contact Info) Description 01/23/2022 Abstract [facility] CONVERSIONS Dental, Provider, DDS Social History [...] Care Team ( st Contact Info) Description 06/13/2025 10:30 AM EDT Telemedicine [facility] [address] [place] [phone] Yariel Schmid, PharmD [address] [place] [address] 06/28/2025 9:00 AM EDT Office Visit [facility] [address] [place] [address] [phone] Xuan Mckeon MD [address] [place] [address] documented as of this encounter Visit Diagnoses Not on filedocumented in this encounter Care Teams Regulatory Product Manager Relationship Specialty Start Date End Date Xuan Mckeon MD [address] [place], [place] [phone] PCP - General Family Medicine 09/20/20 Yariel Schmid, CristóbalD [address] [place] [address] Pharmacist Internal Medicine 11/23/22 documented as of this encounter
--- OUTSIDE RECORDS SUMMARY | 2025-06-12 02:05 | XMS_ITS | Clinical Summary ---
Author Organization [facility] Address [id number] [place] [phone] Care Team Providers Care Bin Filler Name Role Phone Unavailable Primary Care Provider [...] Last Done Comments Breast Cancer Screening 1950 Zoster Vaccines (1 of 2) 2001 Pneumococcal Vaccine: 50+ Years (3 of 3 - PCV20 or PCV21) 06/23/2021 06/23/2016, 07/03/2010 DTaP,Tdap,and Td Vaccines (3 - Td or Tdap) 09/25/2023 09/25/2013, 11/05/2001 Depression Screening 09/06/2024 COVID-19 Vaccine ( - 2023- season) 2025 Influenza Vaccine (#1) 2025 5, 07/25/2014, 05/19/2013, Additional history exists RSV Immunization Adult Patients (1 - 1-dose 75+ series) 2026 HIB Vaccines Aged Out No longer eligi ble based on patient's age to complete this topic HPV Vaccines Aged Out No longer eligi ble based on patient's age to complete this topic Hepatitis A Vaccines Aged Out No long er eligible based on patient's age to complete this topic Hepatitis B Vaccines Aged Out No long er eligible based on patient's age to complete [...]
--- OUTSIDE RECORDS SUMMARY | 2025-06-12 02:05 | XMS_ITS | Encounter Summary ---
Author Organization [employer] Address 75 [facility] 7t [place] [address] Care Team Providers Care Shipping And Receiving Assistant Name Role Phone Xuan Mkceon MD Primary Care Provider [phone] Yariel Schmid PharmD Unavailable [phone] Reason for Visit * Reason Comments Med Refill Encounter Details Date Type Department Care Team ([facility] st Contact Info) Description 09/08/2023 Refill [facility] MEDICINE 230 [place], [place] [phone] Xuan Mckeon MD 230 [place], [place] [phone] Other specified anxiety disorders Social History Tobacco [...] Info) Description 06/13/2025 10:30 AM EDT Telemedicine [facility] MEDICINE [address] [place] [address] 13571 Yariel Schmid PharmD [address] [place] [address] 7[address] 06/28/2025 9:00 AM EDT Office Visit [facility]INE [address] [place] [address] 28113 Xuan Mckeon MD [address] [place] [address] 48076 documented as of this encounter Goals Goal Patient Goal Type Associated Problems Recent Progress Patient-Stated? Author Blood Pressure < 140/90 Blood Pressure 145/82( 025 12:53 PM EDT) No Yariel Schmid PharmD documented as of this encounter Visit Diagnoses Diagnosis Other specified anxiety disorders documented in this encounter Additional Health Concerns Assessment Noted Time PHQ-9 Depression Total Score: 4 12/18/19 23 10:48 AM EDT documented as of this encounter Care Teams Shipping And Receiving Assistant Relationship Specialty Start Date End Date Xuan Mckeon MD [address] [place] [address] 74991 PCP - General Family Medicine 09/20/20 Yariel Schmid PharmD [address] [place] [address] 63225 Pharmacist Internal Medicine 11/23/22 documented as of this encounter
--- OUTSIDE RECORDS SUMMARY | 2025-06-12 02:05 | XMS_ITS | Encounter Summary ---
Author Organization [employer] Address 75 [facility] [address] 7t [place] [address] Care Team Providers Care Marine Equipment Design Engineer Name Role Phone Xuan Mckeon MD Primary Care Provider [phone] Yariel Schmid PharmD Unavailable [phone] Encounter Details Date Type Department Care Team ([facility] st Contact Info) Description 09/20/2024 Orders Only [facility] MEDICINE 230 [place], [place] [phone] Xuan Mckeon MD 230 [place], [place] [phone] Left lower quadrant abdominal pain (Primary Dx); [...] Info) Description 06/13/2025 10:30 AM EDT Telemedicine [facility] MEDICINE [address] [place] [address] 03837 Yariel Schmid, PharmD [address] [place] [address] 875[address] 06/28/2025 9:00 AM EDT Office Visit [facility] MEDICINE [address] [place] [address] 29363 Xuan Mckeon MD [address] [place] [address] 19294 documented as of this encounter Goals Goal Patient Goal Type Associated Problems Recent Progress Patient-Stated? Author Blood Pressure < 140/90 Blood Pressure 145/82( 025 12:53 PM EDT) No Yariel Schmid, PharmD documented as [...] Results * (ABNORMAL) Sed Rate by Modified Erick (09/21/2024 9:16 AM EST) Erythrocyte Sedimentation Rate 25(H) 0 - 20 MM/HR [facility] Comment:Patients with polycy themia and many hemoglobin abnormalitiesmay have depressed sed rates whereas patients with anemiamay have elevated sed rates. Blood Venous blood specimen / Unknown 09/21/2024 9:16 AM EST 09/21/2024 11:12 AM EST Xuan Mckeon MD LAB BLOOD ORDERABLES Final Resul t Performing Organization Address [facility] Co de Phone Number [facility] [address] [place] [address] [phone] * (ABNORMAL) C-reactive Protein (09/21/2024 9:16 AM EST) Pathologist [facility] C Reactive Protein 0.96(H) < or = 0.50 mg/dL [facility] Blood Venous blood specimen / Unknown 09/21/2024 9:16 AM EST 09/21/2024 11:12 AM EST Xuan Mckeon MD LAB BLOOD ORDERABLES Final Resul t Performing Organization Address [facility]/ZIP Co de Phone Number [facility] [address] [place] [address] [phone] * (ABNORMAL) CBC auto differential (09/21/2024 9:16 AM EST) Pathologist [facility] White Blood Count 6.2 4.8 - 10.8 X10*3/uL [facility] Red Blood Count 3.99(L) 4.20 - 5.50 X10*6/uL [facility] Hemoglobin 12.4 12.0 - 16.0 g/dl [facility] Hematocrit 36.3(L) 37.0 - 47.0 % [facility] Mean Corpuscular Volume 91.0 80.0 - 98.0 fL [facility] Mean Corpuscular Hemoglobin 31.1 27.0 - 33.0 pg [facility] Mean Corpuscular HGB Conc 34.2 31.0 - 35.0 g/dl [facility] Red Cell Distribution Width 12.5 11.0 - 16.0 % [facility] Platelet Count 288 160 - 400 X10*3/uL [facility] Mean Platelet Volume 10.5 9.4 - 12.3 fL [facility] Neutrophils Percent Auto 70.5 45 - 73 % [facility] Imm Gran Pct Auto 0.3 0.0 - 0.4 % [facility] Lymphocytes Percent Auto 20.0 20 - 40 % [facility] Monocytes Percent Auto 7.1 2 - 11 % [facility] Eosinophils Percent Auto 1.6 0 - 4 % [facility] Basophils Percent Auto 0.5 0 - 2 % [facility] NRBC Pct Auto 0.0 0.0 - 0.2 /100WBC [facility] Neutrophils Absolute Auto 4.3 2.0 - 8.3 x10*3/uL [facility] Imm Gran Abs Auto 0.02 0.00 - 0.03 X10*3/uL [facility] Lymphocytes Absolute Auto 1.2 1.2 - 4.9 X10*3/uL [facility] Monocytes Absolute Auto 0.4 0.1 - 1.2 X10*3/uL [facility] Eosinophils Absolute Auto 0.1 0.0 - 0.4 X10*3/uL [facility] Basophils Absolute Auto 0.0 0.0 - 0.2 X10*3/uL [facility] NRBC Abs Auto 0.000 0.0 - 0.012 X10*3/uL [facility] Blood Venous blood specimen / Unknown 09/21/2024 9:16 AM EST 09/21/2024 11:12 AM EST Xuan Mckeon MD LAB BLOOD ORDERABLES Final Resul t [facility] [address] [place] [phone] documented in this encounter Visit Diagnoses Diagnosis Left lower quadrant abdominal pain- Primary Diverticulitis Diverticulitis of colon (without mention of hemorrhage) documented in this encounter Additional Health Concerns Assessment Noted Time PHQ-9 Depression Total Score: 11 024 10:30 AM EDT documented as of this encounter Care Teams Marine Equipment Design Engineer Relationship Specialty Start Date End Date Xuan Mckeon MD 230 [place] [address] PCP - General Family Medicine 09/20/20 Yariel Schmid, Leelee [address] [place] [address] 98821 Pharmacist Internal Medicine 11/23/22 documented as of this encounter
--- OUTSIDE RECORDS SUMMARY | 2025-06-12 02:05 | XMS_ITS | Encounter Summary ---
Author Organization [employer] Address 75 [facility] 7t [place] [address] Care Team Providers Care Hand Deicer Element Winder Name Role Phone Xuan Mckeon MD Primary Care Provider [phone] Yariel Schmid PharmD Unavailable [phone] Encounter Details Date Type Department Care Team (Late st Contact Info) Description 09/23/2022 Orders Only [facility] MED [facility] PEDS [address] [place] [address] Shannon Rich LPN Social History Tobacco Use [...] Info) Description 06/13/2025 10:30 AM EDT Telemedicine [facility] MEDICINE [address] [place] [address] 39943 Yariel Schmid, PharmD 230 [place], [place] [phone] 06/28/2025 9:00 AM EDT Office Visit [facility] MEDICINE [address] [place] [address] [phone] Xuan Mckeon MD 230 [place], [place] [phone] documented as of this encounter Visit Diagnoses Not on filedocumented in this encounter Care Teams Hand Deicer Element Winder Relationship Specialty Start Date End Date Xuan Mckeon MD 230 [place] [address] PCP - General Family Medicine 09/20/20 Yariel Schmid PharmD 230 [place] [address] Pharmacist Internal Medicine 11/23/22 documented as of this encounter
--- OUTSIDE RECORDS SUMMARY | 2025-06-12 02:05 | XMS_ITS | Encounter Summary ---
Author Organization [employer] Address 75 [facility] 7t [place] [address] Care Team Providers Care Therapy Manager Name Role Phone Xuan Mckeon MD Primary Care Provider [phone] Yariel Schmid PharmD Unavailable Reason for Visit * Reason Comments Med Refill Encounter Details Date Type Department Care Team ([facility] st Contact Info) Description 10/05/2023 Refill [facility] MEDICINE 230 [place], [place] [phone] Xuan Mckeon MD 230 [place], [place] [phone] Vitamin B12 deficiency Social History Tobacco Use [...] Info) Description 06/13/2025 10:30 AM EDT Telemedicine [facility]INE [address] [place] [address] 25107 Yariel Schmid, PharmD [address] [place] [address] 45763 06/28/2025 9:00 AM EDT Office Visit [facility]INE [address] [place] [address] 97155 Xuan Mckeon MD [address] [place] [address] 43119 documented as of this encounter Goals Goal [...] documented as of this encounter Care Teams Therapy Manager Relationship Specialty Start Date End Date Xuan Mckeon MD [address] [place] [address] 67080 PCP - General Family Medicine 09/20/20 Yariel Schmid, PharmD 230 [place] [address] Pharmacist Internal Medicine 11/23/22 documented as of this encounter
--- OUTSIDE RECORDS SUMMARY | 2025-06-12 02:05 | XMS_ITS | Encounter Summary ---
Author Organization [email or web address] Address 75 [facility] 7t [place] [address] Care Team Providers Care Substation Mechanic Name Role Phone Xuan Mckeon MD Primary Care Provider [phone] Yariel Schmid PharmD Unavailable [phone] Reason for Visit * Reason Comments Med Refill Encounter Details Date Type Department Care Team ([facility] st Contact Info) Description 10/05/2023 Refill [facility] MEDICINE 230 [place], [place] [phone] Xuan Mckeon MD 230 [place], [place] [phone] Vitamin B12 deficiency Social History Tobacco Use [...] EDT Telemedicine [facility] MEDICINE [address] [place] [address] 11747 Yariel Schmid, PharmD [address] [place] [address] 42763 06/28/2025 9:00 AM EDT Office Visit [facility] MEDICINE [address] [place] [address] 07115 Xuan Mckeon MD [address] [place] [address] 63630 documented as of this encounter Goals Goal [...] documented as of this encounter Care Teams Substation Mechanic Relationship Specialty Start Date End Date Xuan Mckeon MD [address] [place] [address] 27917 PCP - General Family Medicine 09/20/20 Yariel Schmid, PharmD 230 [place] [address] Pharmacist Internal Medicine 11/23/22 documented as of this encounter
--- OUTSIDE RECORDS SUMMARY | 2025-06-12 02:05 | XMS_ITS | Encounter Summary ---
Author Organization [employer] Address 75 [facility] [address] 7t [place] [address] Care Team Providers Care Color Coater Name Role Phone Xuan Mckeon MD Primary Care Provider [phone] Yariel Schmid PharmD Unavailable [phone] Reason for Visit * Reason Comments Med Refill Encounter Details Date Type Department Care Team ([facility] st Contact Info) Description 03/06/2024 Refill [facility] MEDICINE 230 [place], [place] [phone] Ofelia Akhtar, ANP 230 [place], [place] [phone] Other specified anxiety disorders Social History Tobacco [...] Info) Description 06/13/2025 10:30 AM EDT Telemedicine [facility] MEDICINE [address] [place] [address] 77309 Yariel Schmid PharmD [address] [place] [address] 19388 06/28/2025 9:00 AM EDT Office Visit [facility] MEDICINE [address] [place] [address] 38743 Xuan Mckeon MD [address] [place] [address] 24317 documented as of this encounter Goals Goal [...] documented as of this encounter Care Teams Color Coater Relationship Specialty Start Date End Date Xuan Mckeon MD [address] [place] [address] 71681 PCP - General Family Medicine 09/20/20 Yariel Schmid PharmD [address] [place] [address] 26738 Pharmacist Internal Medicine 11/23/22 documented as of this encounter
--- OUTSIDE RECORDS SUMMARY | 2025-06-12 02:05 | XMS_ITS | Encounter Summary ---
Author Organization [employer] Address [address] [facility] [address] 7t [place] [address] Care Team Providers Care Correctional Agency Director Name Role Phone Xuan Mckeon MD Primary Care Provider [phone] Yariel Schmid PharmD Unavailable [phone] Encounter Details Date Type Department Care Team ([facility] st Contact Info) Description 10/22/2023 Orders Only [facility] MEDICINE 230 [place], [place] [phone] Xuan Mckeon MD 230 [place], [place] [phone] Social History Tobacco Use Types Packs/Day Years [...] Info) Description 06/13/2025 10:30 AM EDT Telemedicine [facility] MEDICINE [address] [place] [address] 73712 Yariel Schmid PharmD [address] [place] [address] 60179 06/28/2025 9:00 AM EDT Office Visit [facility] MEDICINE [address] [place] [address] 32282 Xuan Mckeon MD [address] [place] [address] 54114 documented as of this encounter Goals Goal [...] as of this encounter Care Teams Correctional Agency Director Relationship Specialty Start Date End Date Xuan Mckeon MD [address] [place] [address] [phone] PCP - General Family Medicine 09/20/20 Yariel Schmid PharmD [address] [place] [address] [phone] Pharmacist Internal Medicine 11/23/22 documented as of this encounter
--- OUTSIDE RECORDS SUMMARY | 2025-06-12 02:05 | XMS_ITS | Encounter Summary ---
Author Organization [employer] Address 75 [facility] 7t [place] [address] Care Team Providers Care Viscosity Tester Name Role Phone Xuan Mckeon MD Primary Care Provider [phone] Yariel Schmid PharmD Unavailable [phone] Reason for Visit * Reason Comments Med Refill Encounter Details Date Type Department Care Team (Late Contact Info) Description 03/18/2023 Refill [facility] CHC MED & PEDS 505 [place], [place] [phone] Xuan Mckeon MD 230 [place] [address] Other specified anxiety disorders Social History Tobacco [...] Department Care Team (Late Contact Info) Description 06/13/2025 10:30 AM EDT Telemedicine [facility] MEDICINE 230 [place], [place] [phone] Yariel Schmid, PharmD 230 [place] [address] 06/28/2025 9:00 AM EDT Office Visit [facility] MEDICINE 230 [place] [address] Xuan Mckeon MD 230 [place] [address] documented as of this encounter Goals Goal [...] documented as of this encounter Care Teams Viscosity Tester Relationship Specialty Start Date End Date Xuan Mckeon MD 230 [place] [address] PCP - General Family Medicine 09/20/20 Yariel Schmid, PharmD [address] [place] [address] 15763 Pharmacist Internal Medicine 11/23/22 documented as of this encounter
--- OUTSIDE RECORDS SUMMARY | 2025-06-12 02:05 | XMS_ITS | Encounter Summary ---
Author Organization [employer] Address 75 [facility] 7t [place] [address] Care Team Providers Care Process Worker Name Role Phone Xuan Mckeon MD Primary Care Provider [phone] Yariel Schmid PharmD Unavailable [phone] Reason for Visit * Reason Comments Med Refill Encounter Details Date Type Department Care Team ([facility] st Contact Info) Description 10/18/2024 Refill [facility] MEDICINE 230 [place], [place] [phone] Xuan Mckeon MD 230 [place], [place] [phone] Fibromyalgia Social History Tobacco Use Types Packs/Day [...] Info) Description 06/13/2025 10:30 AM EDT Telemedicine [facility] MEDICINE [address] [place] [address] 14546 Yariel Schmid, PharmD [address] [place] [address] 76574 06/28/2025 9:00 AM EDT Office Visit [facility] MEDICINE [address] [place] [address] 62055 Xuan Mckeon MD [address] [place] [address] 09737 documented as of this encounter Goals Goal [...] documented as of this encounter Care Teams Process Worker Relationship Specialty Start Date End Date Xuan Mckeon MD 230 [place] [address] PCP - General Family Medicine 09/20/20 Yariel Schmid, CristóbalD [address] [place] [address] 32553 Pharmacist Internal Medicine 11/23/22 documented as of this encounter
--- OUTSIDE RECORDS SUMMARY | 2025-06-12 02:05 | XMS_ITS | Encounter Summary ---
Author Organization [employer] Address [address] [facility] [address] 7t [place] [address] Care Team Providers Care Breakfast Server Name Role Phone Xuan Mckeon MD Primary Care Provider [phone] Yariel Schmid PharmD Unavailable [phone] Encounter Details Date Type Department Care Team (Late st Contact Info) Description 12/06/2023 Orders Only [facility] MEDICINE 230 [place], [place] [phone] Xuan Mckeon MD 230 [place], [place] [phone] Social History Tobacco Use Types Packs/Day Years [...] [facility] MEDICINE [address] [place] [address] 66262 Yariel Schmid PharmD [address] [place] [address] 35190 06/28/2025 9:00 AM EDT Office Visit [facility] MEDICINE [address] [place] [address] 74680 Xuan Mckeon MD [address] [place] [address] 13727 documented as of this encounter Goals Goal [...] as of this encounter Care Teams Breakfast Server Relationship Specialty Start Date End Date Xuan Mckeon MD [address] [place] [address] [phone] PCP - General Family Medicine 09/20/20 Yariel Schmid PharmD [address] [place] [address] [phone] Pharmacist Internal Medicine 11/23/22 documented as of this encounter
--- OUTSIDE RECORDS SUMMARY | 2025-06-12 02:05 | XMS_ITS | Encounter Summary ---
Author Organization [employer] Address 75 [facility] 7t [place] [address] Care Team Providers Care Environmental Designer Name Role Phone Xuan Mckeon MD Primary Care Provider [phone] Yariel Schmid PharmD Unavailable [phone] Encounter Details Date Type Department Care Team (Latest Contact Info) Description 06/11/2025 Travel Social History Tobacco Use Types Packs/Day [...] Info) Description 06/13/2025 10:30 AM EDT Telemedicine [facility] MEDICINE [address] [place] [address] 74[address] Yariel Schmid, Leelee [address] [place] [address] 39609 06/28/2025 9:00 AM EDT Office Visit [facility] MEDICINE [address] [place] [address] 60125 Xuan Mckeon MD [address] [place] [address] 18992 documented as of this encounter Goals Goal [...] as of this encounter Care Teams Environmental Designer Relationship Specialty Start Date End Date Xuan Mckeon MD [address] [place] [address] 73084 PCP - General Family Medicine 09/20/20 Yariel Schmid, CristóbalD [address] [place] [address] [phone] Pharmacist Internal Medicine 11/23/22 documented as of this encounter
--- OUTSIDE RECORDS SUMMARY | 2025-06-12 02:05 | XMS_ITS | Encounter Summary ---
Author Organization [employer] Address 75 [facility] 7t [place] [address] Care Team Providers Care Mortgage Processing Manager Name Role Phone Xuan Mckeon MD Primary Care Provider [phone] Yariel Schmid PharmD Unavailable [phone] Reason for Visit * Reason Comments Med Refill Encounter Details Date Type Department Care Team ([facility] Contact Info) Description 10/06/2022 Refill [facility] CHC MED & PEDS [address] [place], [place] [phone] Ofelia Akhtar ANP 230 [place], [place] [phone] Other specified anxiety disorders Social History Tobacco [...] Upcoming Encounters Date Type Department Care Team ([facility] Contact Info) Description 06/13/2025 10:30 AM EDT Telemedicine [facility] MEDICINE 230 [place], [place] [phone] Yariel Schmid, PharmD 230 [place] [address] 06/28/2025 9:00 AM EDT Office Visit [facility] MEDICINE [address] [place] [address] [phone] Xuan Mckeon MD [address] [place] [address] [phone] documented as of this encounter Visit Diagnoses Diagnosis Other specified anxiety disorders documented in this encounter Care Teams Mortgage Processing Manager Relationship Specialty Start Date End Date Xuan Mckeon MD [address] [place] [address] [phone] PCP - General Family Medicine 09/20/20 Yariel Schmid, CristóbalD [address] [place] [address] [phone] Pharmacist Internal Medicine 11/23/22 documented as of this encounter
--- OUTSIDE RECORDS SUMMARY | 2025-06-12 02:05 | XMS_ITS | Encounter Summary ---
Author Organization [employer] Address 75 [facility] 7t [place] [address] Care Team Providers Care Stonecutter Name Role Phone Xuan Mckeon MD Primary Care Provider [phone] Yariel Schmid PharmD Unavailable [phone] Reason for Visit * Reason Comments Med Refill Encounter Details Date Type Department Care Team ([facility] st Contact Info) Description 02/23/2025 Refill [facility] 230 [place], [place] [phone] Xuan Mckeon MD 230 [place], [place] [phone] Other specified anxiety disorders Social History Tobacco [...] Info) Description 06/13/2025 10:30 AM EDT Telemedicine [facility] MEDICINE [address] [place] [address] 96411 Yariel Schmid, PharmD [address] [place] [address] 78729 06/28/2025 9:00 AM EDT Office Visit [facility] MED[facility]INE [address] [place] [address] 66889 Xuan Mckeon MD [address] [place] [address] 60566 documented as of this encounter Goals Goal [...] documented as of this encounter Care Teams Stonecutter Relationship Specialty Start Date End Date Xuan Mckeon MD [address] [place] [address] [place] [address] PCP - General Family Medicine 09/20/20 Yariel Schmid, Leelee [address] [place] [address] Pharmacist Internal Medicine 11/23/22 documented as of this encounter
--- OUTSIDE RECORDS SUMMARY | 2025-06-12 02:05 | XMS_ITS | Clinical Summary ---
Author Organization [employer] Address [address] [facility] [address] [place] [address] Care Team Providers Care Dielectric Machine Operator Name Role Phone Xuan Mckeon MD Primary Care Provider Yariel Schmid PharmD Unavailable [phone] Allergies Active Allergy Reactions Criticality Noted Date [...] complication, without long-term current use of insulin (HCC) USE TWICE DAILY 100 each 11 10/18/19 24 Active metoprolol succinate XL (Toprol XL) 100 MG 24 hr tabletIndicatio ns:Primary hypertension Take 1 tablet by mouth once daily at bedtime 90 tablet 3 06/28/20 24 Active FREESTYLE LITE test stripIndication s:Type 2 diabetes mellitus without complication, without long-term current use of insulin (HCC) TEST BLOOD SUGAR TWICE DAILY 100 strip [...] MORNING 90 capsule 3 10/24/19 25 Active losartan (Cozaar) 100 MG tablet [...] needed for wheezing. 18 g 05/15/20 25 2025 Active EPINEPHrine (Epipen) 0.3 MG/0.3ML injection syringe Inject 0.3 mL (0.3 mg) as directed 1 (one) time if needed for anaphylaxis for up to 1 dose. Inject into upper leg. Call 911 after use. 1 each 1 05/15/20 25 Active dicyclomine (Bentyl) 20 MG tablet Take 1 tablet by mouth every 6 (six) hours during the day. 05/09/20 25 Active metFORMIN XR (Glucophage-XR) 500 MG 24 hr tablet TAKE 1 TABLET BY MOUTH EVERY MORNING 90 tablet 3 05/29/20 25 Active amLODIPine (Norvasc) 5 MG tablet Take 5 mg by mouth Once per day. Active fluticasone (Flonase) 50 MCG/ACT nasal sprayIndication s:Fluid level behind tympanic membrane of right ear Administer 1-2 sprays into each nostril Once per day. Shake gently. Before first use, prime pump. After use, clean tip and replace cap. 16 g 2 06/11/20 25 2025 Active cetirizine (ZyrTEC) 10 MG tabletIndicatio ns:Fluid level behind tympanic membrane of right ear Take 1 tablet (10 mg) by mouth Once per day. 30 tablet 11 06/11/20 25 2025 Active metFORMIN XR (Glucophage-XR) 500 MG 24 hr tablet TAKE 1 TABLET BY MOUTH EVERY MORNING 90 tablet 3 06/05/20 24 2024 Discontinued fexofenadine (Tanisha) 180 MG tabletIndicatio ns:Urticaria TAKE 1 TABLET BY MOUTH EVERY DAY NEEDED FOR ALLERGIES 90 tablet 07/06/20 24 2024 Discontinued(M ed list cleanup (will not trigger notification to Pharmacy)) hydrOXYzine pamoate (Vistaril) 25 MG capsuleIndicati ons:Urticaria TAKE 1 CAPSULE BY MOUTH AT BEDTIME NEEDED FOR ITCHING 30 capsule 1 11/03/19 25 2024 Discontinued(T herapy completed) cetirizine (ZyrTEC) 10 MG tablet TAKE 1 TABLET BY MOUTH EVERY DAY NEEDED FOR ITCHING 05/01/20 25 2024 Discontinued(T herapy completed) predniSONE (Deltasone) 50 MG tablet Take 50 mg by mouth Once per day. 05/26/20 25 2024 Active Problems Problem Noted Date Diagnosed Date Dyspnea 05/26/2025 Assessment & Plan (05/26/2025 6:46 AM EDT): - Recently seen in the emergency department and was prescribed albuterol - Will evaluate with PFT since patient has severe allergy, and may have asthma - Previously seeing legal process specialist. Patient may benefit from biologic medication. Will refer her back to specialist Chronic urticaria 05/26/2025 Assessment & Plan (05/26/2025 6:48 AM EDT): - Frequent allergic reaction - Continue cetirizine - Previously tried loratadine and fexofenadine - Continue judicious use of diphenhydramine as needed - Previously seen by legal process specialist, but was unable to complete allergy testing - Will refer her back since she may benefit from a biologic medication Hypokalemia 09/18/2024 Assessment & Plan (01/14/2025 5:15 [...] lab Allergic reaction 09/18/2024 Assessment & Plan (05/26/2025 6:40 AM EDT): -Pt had history of multiple allergies -Pt developed left arm redness, swelling, itchiness, and urticarial rash on her neck and chest on 09/18/24 after her BP was checked with a machine -Pt described itchiness and most likely allergic reaction -Offending agent is unknown -Continue cetirizine -Pt takes diphenhydramine when she has allergic reactions -Patient likely has chronic urticaria. Patient has already been seen and treated by legal process specialist. She states she could not complete [...] has already been seen and treated by legal process specialist. She states she could not complete [...] has already been seen and treated by legal process specialist. She states she could not complete [...] Plan (12/17/2022 11:27 AM EDT): Seen by Account Receivable Clerk, Dr. Karimi, on 11/26/22. Reported exertional Cheat Pain Stress Test was ordered -will check status Chronic low back pain 10/04/2022 Assessment & Plan (10/04/2022 5:48 AM EST): Continue judicious use of APAP and cyclobenzaprine Strain of trapezius muscle 09/29/2022 Primary hypertension 09/29/2022 Assessment & Plan (05/26/2025 6:43 AM EDT): -Goal BP < 130/80 per ACC/AHA -BP at goal today -Co-managed with medicine technologist, health sciences manager, and PharmD. -pt advised to continue checking BP at home -medicine technologist: Dr. Karimi, last visit in 04/23/2025; exertional dyspnea. Possible evaluation with CTA or coronary angiography. -normal Holter monitor and echo -continue working on lifestyle modifications -continue losartan 100 mg daily -continue metoprolol succinate 100 mg daily - Continue spironolactone - hctz 25-25 mg daily (history of hypokalemia on KCl supplement) as prescribed by health sciences manager Previous Treatment: -discontinued HCTZ and replaced chlorthalidone. -discontinued Amlodipine d/t leg swelling (recently prescribed by medicine technologist again, but patient has not started it yet) Assessment & Plan (01/14/2025 5:13 PM EDT): -Goal BP <140/90 per JNC-8, < 130/80 per ACC/AHA -BP not at goal today -Co-managed with medicine technologist and PharmD. -pt advised to continue checking BP at home -medicine technologist: Dr. Karimi, last visit in 12/06/24; exertional dyspnea. Possible evaluation with CTA or coronary angiography -normal Holter monitor and echo -continue working on lifestyle modifications -continue losartan 100 mg daily -continue metoprolol succinate 100 mg daily - start spironolactone - hctz 25-25 mg daily (history of hypokalemia on KCl supplement) as prescribed by health sciences manager Previous Treatment: -discontinued HCTZ and replaced chlorthalidone. [...] -BP not at goal today -Co-managed with medicine technologist and PharmD. -pt advised to continue checking BP at home -medicine technologist: Dr. Karimi, last visit in 11/26/22; exertional [...] -BP not at goal today -Co-managed with medicine technologist and PharmD. -pt advised to continue checking BP at home -medicine technologist: Dr. Karimi, last visit in 11/26/22; exertional [...] -BP not at goal today -Co-managed with medicine technologist and PharmD. -pt advised to continue checking BP at home -medicine technologist: Dr. Karimi, last visit in 11/26/22; exertional [...] < 130/80 per ACC/AHA - co-managed with medicine technologist and PharmD. -pt advised to continue checking BP at home -medicine technologist: Dr. Karimi, last visit in 11/26/22; exertional [...] < 130/80 per ACC/AHA - co-managed with medicine technologist and PharmD. -pt advised to continue checking BP at home -medicine technologist: Dr. Karimi, last visit in 11/26/22; exertional [...] advised to continue checking BP at home -medicine technologist: Dr. Kraimi, last visit in 11/26/22; exertional CP. Stress [...] advised to continue checking BP at home -medicine technologist: Dr. Karimi, last visit in 07/06/22; concerns [...] on 07/03/22 - Started on Plavix by medicine technologist; ASA was discontinued due to GI bleed - Continue statin, clopidogrel, and losartan - Continue working on lifestyle modification / risk factor management Assessment & Plan (01/14/2025 5:04 PM EDT): - seen in ED on 07/03/22 - Started on Plavix by medicine technologist; ASA was discontinued due to GI bleed - Continue statin, clopidogrel, and losartan - Continue working on lifestyle modification / risk factor management Assessment & Plan (05/30/2024 11:03 AM EDT): - seen in ED on 07/03/22 - Started on Plavix by medicine technologist; ASA was discontinued due to GI bleed - Continue statin, clopidogrel, and losartan - Continue working on lifestyle modification / risk factor management Assessment & Plan (11/30/2023 4:38 AM EDT): - seen in ED on 07/03/22 - Started on Plavix by medicine technologist; ASA was discontinued due to GI bleed - Continue statin, clopidogrel, and losartan - Continue working on lifestyle modification / risk factor management Assessment & Plan (12/17/2022 11:23 AM EDT): - seen in ED on 07/03/22 - Started on Plavix by medicine technologist; ASA was discontinued due to GI bleed - Continue statin, clopidogrel, and losartan - Continue working on lifestyle modification / risk factor management Assessment & Plan (10/04/2022 5:51 AM EST): - seen in ED on 07/03/22 - Started on Plavix by medicine technologist; ASA was discontinued due to GI bleed [...] left adrenal cyst - repeating CT by health sciences manager Assessment & Plan (06/14/2023 3:20 PM EDT): [...] 40 mg at bedtime Last lipid profile: 11/08/24 Pt is recommended to be on high-intensity [...] Plavix, and omeprazole has a drug interaction. Diverticulosis of large intestine without hemorr nahun 03/17/2016 Varicose vein of leg 01/16/2013 Diabetic neuropathy 01/16/2013 Overview (06/11/2025): Mild numbness Adrenal adenoma 05/12/2012 Rectocele, female 03/02/2012 Hemorrhoid 01/27/2012 Fatty liver disease, nonalcoholic 08/24/2011 History of diverticulitis 06/22/2011 Overview (10/17/2024): Patient describes 3 episodes, last on treated at [facility] on 04/2012 Assessment & Plan (10/17/2024 10:49 AM EST): - recurrent - most recent episode in Jun 2024. Presented with LLQ pain. CT showed diverticulitis of descending colon. - continue maintaining a good, protective gut microbiome High cholesterol 06/22/2011 Resolved Problems Problem Noted Date Diagnosed Date Resolved Date History of kidney stones 06/14/202305/2023 Pruritus 12/17/2022 11/30/2023 Assessment & Plan (12/17/2022 1:59 PM EDT): Patient attributes change in the Vitamin B12 tablets -will ask Pharmacist if other B12 tablets is available. Palpitations 05/06/2018 11/30/2023 Encounters Date Type Department Care Team Description 06/11/2025 1:00 PM EDT Office Visit [facility] [address] [place] [address] Willow Wilson MD Allergic reaction, sequela (Primary Dx); Diabetic polyneuropathy associated with type 2 diabetes mellitus (HCC); Bronchitis; Fluid level behind tympanic membrane of right ear 06/11/2025 Travel 05/30/2025 Travel 05/28/2025 Telephone [facility] [address] [place] [address] Xuan Mckeon MD ER Follow-up; Medication Question 05/28/2025 Refill [facility] [address] [place] [address] Xuan Mckeon MD 05/23/2025 Orders Only GENERIC EXTERNAL DATA DEPARTMENT Provider, Generic External Data 05/22/[address] [address] Xuan Mckeon MD Lab Orders 05/15/2025 10:30 AM EDT Office Visit [address] [address] Xuan Mckeon MD Type 2 diabetes mellitus without complication, without long-term current use of insulin ([facility]) (Primary Dx); Primary hypertension; Dyslipidemia; Obstructive sleep apnea syndrome; TIA (transient ischemic attack); Allergic reaction, sequela; Shortness of breath; Chronic urticaria 05/15/2025 Travel 05/14/[address] [address] Xuan Mckeon MD chart prep 05/09/2025 Orders Only [facility] External Provider, [facility] 05/01/[address] [address] Xuan Mckeon MD 03/21/[address] [address] Xuan Mckeon MD may recall from Last 3 Months Immunizations Immunization [...] Mass Index 31.37 06/11/2025 12:53 PM EDT Plan of Treatment Upcoming Encounters Date Type Department Care Team (Late st Contact Info) Description 06/13/2025 10:30 AM EDT Telemedicine [facility] [address] [place] [phone] Yariel Schmid, PharmD [address] [place], [place] [phone] 06/28/2025 9:00 AM EDT Office Visit [facility] [address] [place], [place] [phone] Xuan Mckeon MD [address] [place], [place] [phone] Health Maintenance Due Date Last Done Comments [...] 11/08/2025 11/08/2024, 11/2023, 06/16/2023, Additional history exists Depression Screening 05/15/2026 05/15/2025, 05/15/20 SDOH Screening 05/15/2026 05/15/2025 Mammogram 2026 2024, 11/05, 05/19/2019, Additional history exists Tobacco Screening 06/11/2026 06/11/2025 Colorectal Cancer Screening 01/11/2027 FIT DNA/Cologuard 01/11/2027 [...] 12:53 PM EDT) No Yariel Schmid, Leelee Procedures Procedure Name Priority Date/Time Associated Diagnosis Comments BASIC METABOLIC PANEL Routine 05/23/2025 8:42 AM EDT URINALYSIS, COMPLETE Routine 05/23/2025 8:42 AM EDT T-SPOT(R).TB Routine 05/23/2025 8:42 AM EDT Screening for tuberculosis POCT GLYCOSYLATED HEMOGLOBIN (HGB A1C) Routine 05/15/2025 10:49 AM EDT Type 2 diabetes mellitus without complication, without long-term current use of insulin (CMS/HCC) POCT GLUCOSE Routine 05/15/2025 10:47 AM EDT Type 2 diabetes mellitus without complication, without long-term current use of insulin (CMS/HCC) COVID-19 ID NOW (OLEA) Routine 05/09/2025 3:07 AM EDT INFLUENZA A B2 ID NOW (OLEA) Routine 05/09/2025 3:07 AM EDT XR CHEST 1 VIEW Routine 05/09/2025 1:13 AM EDT ALBUMIN, RANDOM URINE W/CREATININE Routine 11/08/2024 [...] Recently Relevant to Health Maintenance Results * T-SPOT??.TB (05/23/2025 8:42 AM EDT) Pathologist [facility] T Spot TB Negative Negative [facility] Comment:A negative test resu lt does not exclude the possibilityof exposure to or infection with Mycobacteriumtuberculosis (M. tuberculosis). Patients with recentexposure to TB infected individuals exhibiting anegative T-SPOT.TB result should be considered forretesting within 6 weeks or if other relevant clinicalsymptoms indicate. Results from T-SPOT.TB testing mustbe used in conjunction with each individual'sepidemiological history, current medical status,and results of other diagnostic evaluations.The T-SPOT.TB test is qualitative and results arereported as positive, borderline, or negative, giventhat the test controls perform as expected. In linewith the Centers for Disease Control and Prevention's2010 recommendation to report quantitative measurementsalongside the qualitative result, the laboratoryprovides spot counts for informational purposes only.The T-SPOT.TB test should not be interpreted as aquantitative test. TS PANEL A 0 [facility] TS PANEL B 0 [facility] Negative Control Passed [facility] Positive Control Passed [facility] Comment:For additional infor matconnie, please refer tohttp://education.ImpactFlo/faq/VSR902(This link is being provided for informational/educational purposes only.)THIS TEST WAS PERFORMED AT:[employer] [id number] [place] [address]BJMHPRCTRUMAN ZAPATA MD,PHD 05/23/2025 8:42 AM EDT 05/23/2025 11:14 AM EDT us Xuan Mckeon MD LAB BLOOD ORDERABLES Final Resul t Performing Organization Address [facility] Co de Phone Number [facility] [address] [place] [phone] * (ABNORMAL) Urinalysis Complete (05/23/2025 8:42 AM EDT) Color Urine Yellow [facility] Appearance Urine Cloudy [facility] PH 6.0 5.0 - 9.0 [facility] Glucose Urine UA Negative Negative mg/dL [facility] Urine Blood Negative Negative [facility] Specific [place] - Urine 1.020 1.005 - 1.025 [facility] Urine Protein Negative Neg-Trace mg/dL [facility] Urine Ketones Trace Negative mg/dL [facility] Nitrite Urine Negative Negative [facility] Leukocyte Esterase Urine Small (1+)(A) Negative [facility] RBC Urine 0-2 0 - 2 /HPF [facility] Urine WBC 0-5 0 - 5 /HPF [facility] Urine Squamous Epithelial Cell 3-5 0 - 2 /HPF [facility] Urine Bacteria 2+ None Seen [facility] Hyaline Casts, Urine 0-2 0 - 2 /LPF [facility] 05/23/2025 8:42 AM EDT 05/23/2025 11:14 AM EDT us Generic External Data Provider LAB URINE ORDERAB LES Final Result Performing Organization Address [facility]/ZIP Co de Phone Number [facility] [address] [place] [phone] * (ABNORMAL) Basic Metabolic Panel (05/23/2025 8:42 AM EDT) Sodium 134(L) 135 - 145 mmol/L [facility] Potassium 4.2 3.3 - 5.1 mmol/L [facility] Chloride 98 96 - 108 mmol/L [facility] Carbon Dioxide 28 22 - 29 mmol/L [facility] Anion Gap 12 12 - 20 [facility] Urea Nitrogen (BUN) 13 9 - 16 mg/dL [facility] Creatinine, Serum 0.79 0.5 - 1.4 mg/dL [facility] Estimated Glomerular Filt Rate >60 [facility] Comment:Chronic Kidney Disea se: Estimated GFR < 60 mL/min/1.94s4Xcynjd Kidney Disease: Estimated GFR < 15 mL/min/1.73m2 Glucose 194(H) 60 - 115 mg/dL [facility] Calcium 9.5 8.4 - 10.2 mg/dL [facility] 05/23/2025 8:42 AM EDT 05/23/2025 11:14 AM EDT us Generic External Data Provider LAB BLOOD ORDERAB LES Final Result [facility] [address] [place] [address] [phone] * (ABNORMAL) POCT glycosylated hemoglobin (Hgb A1c) (05/15/2025 10:49 AM EDT) Hemoglobin A1C 6.4(A) 4.0 - 5.7 % [employer] Lot # [id number] Lot# Expiration Date , Blood Capillary blood specimen / Unknown 05/15/2025 10:49 AM EDT us Xuan Mckeon MD POINT OF CARE TEST ENTER/EDIT OR DERABLES Final Result * POCT glucose manually resulted (05/15/2025 10:47 AM EDT) Glucose Blood, POC 154 60 - 200 mg/dL [employer] Lot # [id number] Lot# Expiration Date 166, Blood Capillary blood specimen / Unknown 05/15/2025 10:47 AM EDT Xuan Mckeon MD POINT OF CARE TEST ENTER/EDIT OR DERABLES Final Result * Influenza A B2 ID NOW ([facility]) (05/09/2025 3:07 AM EDT) IDNOW SERIAL# [id number] [facility] Influenza A Negative Negative [facility] Influenza B2 Negative Negative [facility] Influenza A B2 Note See Note [facility] Comment:The Olea ID NOW In [...] LAB MICROBIOLOGY - GENERAL ORDERABLES Final Result [facility] [address] [place] [phone] * COVID-19 ID NOW ([facility]) (05/09/2025 3:07 AM EDT) IDNOW SERIAL# [id number] [facility] COVID-19 TEST Negative Negative [facility] COVID-19 NOTE See Note [facility] Comment: Results are for the identification of SARS-CoV2 RNA. TheSARS-CoV2 RNA is generally detectable in respiratory samplesduring the acute phase of infection. Positive results areindicative of the presence of SARS-CoV-2 RNA; clinicalcorrelation with patient history and other diagnosticinformation is necessary to determine patient infectionstatus. Positive results do not rule out bacterial infectionor co- infection with other viruses.Testing facilities within the [place] and [facility] are required to report all positive results [...] use by authorized laboratories.Testing performed on the [employer] NOW utilizing NAAT. 05/09/2025 3:07 AM EDT 05/09/2025 3:12 AM EDT us Generic External Data Provider LAB MOLECULAR SHENA GNOSTICS ORDERABLES Final Result [facility] [address] [place] [phone] * XR Chest 1 View (05/09/2025 1:13 AM EDT) Anatomical Region Laterality Modality Chest Radiographic Tracie ging 05/09/2025 1:13 AM EDT Narrative 05/09/2025 1:15 AM EDT [address] [address] XRay Report Signed Patient: Che Person MR #: [id number] : 1950 Acct:[id number] Age/Sex: 74 / F ADM Date: 05/09/25 Loc: .ED Attending Dr: Ordering Physician: Generic ED Physician Date of Service: 05/09/25 Procedure(s): XR chest 1V Accession Number(s): [id number] cc: Generic ED Physician; Xuan Mckeon MD [...] in OV> 05/09/25113 DD/ 2 TD/TT: 05/09/25112 Mattress Renovator: Procedure Note Donotuseinterpreter, Image - 05/09/[address] [address] XRay Report Signed Patient: Alexis Person #: [id number] : 1950cct:[id number] Age/Sex: 74 / FADM Date: 05/09/25 Loc: HO.ED Attending Dr: Ordering Physician: Generic ED Physician Date of Service: 05/09/25 Procedure(s): XR chest 1V Accession Number(s): [id number] cc: Generic ED Physician; Xuan Mckeon MD [...] in OV> 05/09/25113 DD/ 2 TD/TT: 05/09/25112 Mattress Renovator: [facility] External Provider IMG XR PROCEDURES Edited Result - Final * (ABNORMAL) Lipid Panel with Reflex to Direct LDL (11/08/2024 9:12 AM EST) Triglycerides 229(H) <150 mg/dL [facility] Comment:Desirable Triglyceri de: less than 150 mg/dLBorderline High Triglyceride 150-199 mg/dLHigh Triglyceride: 200-499 mg/dLVery High Triglyceride: greater than or equal to 5OO mg/dL Cholesterol 166 <200 mg/dL [facility] Comment:Desirable Cholestero l: less than 200 mg/dLBorderline High Cholesterol: 200-239 mg/dLHigh Cholesterol: greater than 239 mg/dL LDL Cholesterol Calculated 83 <100 mg/dL [facility] Comment:Desirable LDL: less than 100 mg/dLNear Optimal/Above Optimal LDL: 110- 129 mg/dLBorderline High LDL: 130-159 mg/dLHigh LDL: 160-189 mg/dLVery High LDL: greater than or equal to 190 mg/dL HDL Cholesterol 38(L) >40 mg/dL [facility] Comment:Desirable HDL: great er than 40 mg/dL Note: This HDL assay may give artificially low results in patients with liver disease. Blood 11/08/2024 9:1 2 AM EST 11/08/2024 11:25 AM EST us Xuan Mckeon MD LAB BLOOD ORDERABLES Final Resul t Performing Organization Address [facility] Co de Phone Number [facility] [address] [place], [place] [phone] * Albumin, Random Urine W/Creatinine (11/08/2024 9:12 AM EST) Creatinine, Urine 161.01 mg/dL [facility] Microalbumin Urine 6.0 mg/L [facility] Microalbum Creatinine Ratio Ur 3.7 <30 ug/mg cr [facility] Comment:Albumin/Creatinine R atio Reference Ranges: Normal: < 30 ug/mg creatinine Microalbuminuria: 30 - 300 ug/mg creatinineClinical Albuminuria: > 300 ug/mg creatinine Urine 11/08/2024 9:12 AM EST 11/08/2024 11:25 AM EST us Xuan Mckeon MD LAB URINE ORDERABLES Final Resul t [facility] [address] [place] [phone] * BI Mammogram Screening Tomosynthesis Bilateral (2024 9:15 AM EDT) Anatomical Region Laterality Modality Breast Bilateral Mammography 2024 9:15 AM EDT Narrative 06/15/2024 7:13 PM EDT [facility] [address] [place] [address] Mammography Report Signed Patient: Che Person MR #: [id number] : 1950 Acct:[id number] Age/Sex: 74 / F ADM Date: 06/06/24 Loc: [facility]FFANIE Attending Dr: Xuan Mckeon MD Ordering Physician: Xuan Mckeon MD Results: 1Negative Date of Service: 06/06/24 Follow Up: 1 Year From Orig ina Mammogram Procedure(s): MM tomosynthesis screening BI Accession Number(s): [id number] cc: Xuan Mckeon MD EXAMINATION: MM SCREENING [...] in OV> 06/15/241909 DD/ 4 TD/TT: 06/06/24919 Mattress Renovator: Procedure Note Donotuseinterpreter, Image - 06/15/2024 [facility] [address] [place], [place] [address] Mammography Report Signed Patient: Greta PersonR #: [id number] : 1950cct:[id number] Age/Sex: 74 / FADM Date: 06/06/24 Loc: HO.MAMMO Attending Dr: Xuan Mckeon MD Ordering Physician: Xuan Mckeon MDResults: 1Negative Date of Service: 06/06/24Follow Up: 1 Year From Orig inal Mammogram Procedure(s): MM tomosynthesis screening BI Accession Number(s): [id number] cc: Xuan Mckeon MD EXAMINATION: MM SCREENING [...] in OV> 06/15/241909 DD/ 4 TD/TT: 06/06/24919 Mattress Renovator: Xuan Mckeon MD IMG BI PROCEDURES Edited Result - Final * FIT DNA/Cologuard Cancer Screening (01/12/2024) Cologuard Cancer Screen Negative Stool Historical Provider HEALTH MAINTENANCE Final Result * Hm Diabetes Eye Exam (02/23/2023) Pathologist [facility] Exam Normal Normal, BIRADS 0 , BIRADS 1 , BIRADS 2, BIRADS 3 , BIRADS 4+ 02/23/2023 Historical Provider HEALTH MAINTENANCE Final Result * HEPATITIS C AB W/REFL TO HCV RNA, QN, PCR (10/23/2020 8:55 AM EST) HEPATITIS C ANTIBODY NON-REACT ADAMA NON-REACT ADAMA [facility] INDEX 0.01 <1.00 [facility] Comment: HCV antibody was non-reactive. There is no laboratory evidence of HCV infection. In most cases, no further action is required. However, if recent HCV exposure is suspected, a test for HCV RNA (test code 38167) is suggested. For additional information please refer to http://education.ImpactFlo/faq/IEC99i4 (This link is being provided for informational/ educational purposes only.) 10/23/2020 8:55 AM EST Xuan Mckeon MD HISTORICAL/NON ORDERABLE LABS Fi nal Result [facility] [address] from Last 3 Months or Most Recently Relevant to Health Maintenance Insurance FORMERLY [facility] JAIL OPTIONS (HMO D-SNP) DENTAL - [facility] Care Teams Dielectric Machine Operator Relationship Specialty Start Date End Date Xuan Mckeon MD [address] [place] [address] PCP - General Family Medicine 09/20/20 Yariel Schmid, PharmD [address] [place] [phone] Pharmacist Internal Medicine 11/23/22
--- OUTSIDE RECORDS SUMMARY | 2025-06-12 02:05 | XMS_ITS | Encounter Summary ---
Author Organization [employer] [facility] Address [address] [facility] 7t [place] [address] Care Team Providers Care Hemodialysis Rn Name Role Phone Xuan Mckeon MD Primary Care Provider [phone] Yariel Schmid PharmD Unavailable [phone] Reason for Referral * Consultation (Routine) - Authorized Specialty Diagnoses / Procedures Referred By Contac t Referred To Contact Pharmacy Diagnoses Primary hypertension Type 2 diabetes mellitus without complication, without long-term current use of insulin ([facility]) Xuan Mckeon MD [address] [place] [phone] Phone: tel: fax: Referral ID Status Reason Start Date Expiration Date Visits Requested Visits Authorized [id number] Authorized Consult and Treat 07/18/2024 07/18/2025 6 6 Encounter Details Date Type Department Care Team (Late st Contact Info) Description 07/18/2024 Orders Only [facility] [address] [place] [phone] Xuan Mckeon MD [address] [place] [address] [phone] Primary hypertension (Primary Dx); Type 2 diabetes mellitus without complication, without long-term current use of insulin ([facility]/HCC) Social History Tobacco Use Types Packs/Day Years [...] Info) Description 06/13/2025 10:30 AM EDT Telemedicine [facility] [address] [place] [phone] Yariel Schmid, CristóbalD [address] [place] [address] 06/28/2025 9:00 AM EDT Office Visit [facility] [address] [place] [phone] Xuan Mckeon MD [address] [place] [phone] Scheduled Referrals Name Type Priority Associated Diagnoses Orde r Schedule Referral to Pharmacy CDTM Outpatient Referral Routine Primary hypertension Type 2 diabetes mellitus without complication, without long-term current use of insulin ([facility]/HCC) Ordered: 07/18/2024 documented as of this encounter Goals Goal Patient Goal Type Associated Problems Recent Progress Patient-Stated? Author Blood Pressure < 140/90 Blood Pressure 145/82( 025 12:53 PM EDT) No Yariel Schmid, PharmD documented as of this encounter Visit Diagnoses Diagnosis Primary hypertension- Primary Unspecified essential hypertension Type 2 diabetes mellitus without complication, without long-term current use of insulin ([facility]) documented in this encounter Additional Health Concerns Assessment Noted Time PHQ-9 Depression Total Score: 11 024 10:30 AM EDT documented as of this encounter Care Teams Hemodialysis Rn Relationship Specialty Start Date End Date Xuan Mckeon MD [address] [place] [phone] PCP - General Family Medicine 09/20/20 Yariel Schmid, PharmD [address] [place] [phone] Pharmacist Internal Medicine 11/23/22 documented as of this encounter
--- OUTSIDE RECORDS SUMMARY | 2025-06-12 02:05 | XMS_ITS | Encounter Summary ---
Author Organization [employer] Address [address] [facility] [address] 7[address] [place] [address] Care Team Providers Care Charge Entry Name Role Phone Xuan Mckeon MD Primary Care Provider Yariel Schmid PharmD Unavailable Reason for Visit * Reason Onset Date Comments Appointment Request 08/23/2024 Encounter Details Date Type Department Care Team ([facility] st Contact Info) Description 08/23/2024 Telephone [facility] [address] [place] [address] Xuan Mckeon MD [address] [place] [address] Appointment Request Social History Tobacco Use Types [...] Miscellaneous Notes * Telephone Encounter - Orville Sweneey - 08/23/2024 8:48 AM EST Tc from pt requesting to reschedule today's CDTM visit. Please contact pt at [phone]. (Tristanian Speaker) documented in this encounter Plan of Treatment Upcoming Encounters Date Type Department Care Team ([facility] st Contact Info) Description 06/13/2025 10:30 AM EDT Telemedicine [facility] [address] [place] [phone] Yariel Schmid, PharmD [address] [place] [phone] 06/28/2025 9:00 AM EDT Office Visit [facility] [address] [place] [address] [phone] Xuan Mckeon MD [address] [place] [address] documented as of this encounter Goals Goal [...] documented as of this encounter Care Teams Charge Entry Relationship Specialty Start Date End Date Xuan Mckeon MD [address] [place] [address] PCP - General Family Medicine 09/20/20 Yariel Schmid, PharmD [address] [place] [address] Pharmacist Internal Medicine 11/23/22 documented as of this encounter
--- OUTSIDE RECORDS SUMMARY | 2025-06-12 02:05 | XMS_ITS | Encounter Summary ---
Author Organization [employer] Address [address] [facility] [facility] [address] 7[address] [place] [address] Care Team Providers Care Board Of Education Secretary Name Role Phone Xuan Mckeon MD Primary Care Provider [phone] Yariel Schmid PharmD Unavailable [phone] Encounter Details Date Type Department Care Team ([facility] st Contact Info) Description 12/24/2023 Orders Only [facility] [address] [place], [place] [phone] Xuan Mckeon MD [address] [place], [place] [phone] Dermatitis (Primary Dx) Social History Tobacco Use [...] Encounters Date Type Department Care Team ([facility] Contact Info) Description 06/13/2025 10:30 AM EDT Telemedicine [facility] [address] [place] [phone] Yariel Schmid, PharmD [address] [place] [phone] 06/28/2025 9:00 AM EDT Office Visit [facility] [address] [place] [phone] Xuan Mckeon MD [address] [place] [address] documented as of this encounter Goals Goal Patient Goal Type Associated Problems Recent Progress Patient-Stated? Author Blood Pressure < 140/90 Blood Pressure 145/82( 025 12:53 PM EDT) No Yariel Schmid, PharmSydnee documented as of this encounter Visit Diagnoses Diagnosis Dermatitis- Primary Contact dermatitis and other eczema, due to unspecified cause documented in this encounter Additional Health Concerns Assessment Noted Time PHQ-9 Depression Total Score: 4 12/18/19 23 10:48 AM EDT documented as of this encounter Care Teams Board Of Education Secretary Relationship Specialty Start Date End Date Xuan Mckeon MD [address] [place] [phone] PCP - General Family Medicine 09/20/20 Yariel Schmid, CristóbalD [address] [place] [address], [place] [address] Pharmacist Internal Medicine 11/23/22 documented as of this encounter
--- OUTSIDE RECORDS SUMMARY | 2025-06-12 02:06 | XMS_ITS | Encounter Summary ---
Author Organization [employer] Address [address] [place] [address] 7t [place] [address] Care Team Providers Care Mixer Machine Feeder Name Role Phone Xuan Mckeon MD Primary Care Provider [phone] Yariel Schmid PharmD Unavailable [phone] Reason for Visit * Reason Comments Med Refill Encounter Details Date Type Department Care Team (Late Contact Info) Description 04/07/2023 Refill [facility] [address] [place] [address] [phone] Xuan Mckeon MD [address] [place] [address] [phone] Vitamin B12 deficiency Social History Tobacco Use [...] Info) Description 06/13/2025 10:30 AM EDT Telemedicine [facility] [address] [place] [address] [phone] Yariel Schmid, PharmD [address] [place], [place] [phone] 06/28/2025 9:00 AM EDT Office Visit [facility] [address] [place], [place] [phone] Xuan Mckeon MD [address] [place] [address] documented as of this encounter Goals Goal [...] documented as of this encounter Care Teams Mixer Machine Feeder Relationship Specialty Start Date End Date Xuan Mckeon MD [address] [place] [address] PCP - General Family Medicine 09/20/20 Yariel Schmid, PharmD [address] [place] [address] Pharmacist Internal Medicine 11/23/22 documented as of this encounter
[2025-06-12 02:11] LABS: Troponin-I High Sensitivity 6.6 ng/L (<3.5-17.0)
[2025-06-12 02:54] VITALS: BP 131/56; PULSE 87; RESP 18; O2SAT 97
--- NOTE | 2025-06-12 04:01 | PC.NURSE ---
xray taken at t his time.
[2025-06-12 04:27] LABS: Troponin-I High Sensitivity 8.2 ng/L (<3.5-17.0)
--- NOTE | 2025-06-12 04:27 | PC.NURSE ---
pt medicated per mar.
[2025-06-12 04:45] LABS: Resp Syncy Virus RNA Qual PCR NEGATIVE (Negative); SARS COV2 PCR INHOUSE NEGATIVE (Negative)
--- NOTE | 2025-06-12 05:26 | ED.GENADULT ---
HPI - General Adult General Chief complaint: General Medical Stated complaint: HYPERTENSION/SEVERE HEADACHE Time Seen by Provider: 06/12/25 03:56 Source: patient Limitations: language barrier History of Present Illness ED Provider: Viviana Phillips PA-C HPI narrative: 75-year-old female with a history of hypertension, diabetes, asthma, fibromyalgia, depression, anxiety, sleep apnea presents with cough and cold symptoms x2 days. Patient states she felt short of breath, that she has been wheezing over the past few days, she use her inhaler. Patient noted her blood pressure to be elevated and her heart rate to be elevated. Denies chest pain or fever. Related Data Home Medications ?Medication ?Instructions ?Recorded ?Confirmed lorazepam 1 mg tablet 1 mg PO BID PRN anxiety 07/04/20 04/23/25 losartan 100 mg tablet 100 mg PO DAILY 07/04/20 04/23/25 metformin 500 mg tablet,extended 500 mg PO DAILY 07/04/20 04/23/25 release 24 hr atorvastatin 40 mg tablet 40 mg PO DAILY 07/06/22 04/23/25 cyanocobalamin (vitamin B-12) 500 500 mcg PO DAILY 07/06/22 04/23/25 mcg tablet metoprolol succinate 100 mg 100 mg PO DAILY 07/25/24 04/23/25 tablet,extended release 24 hr cetirizine 10 mg tablet 10 mg PO DAILY PRN itch 04/02/25 04/23/25 cholecalciferol (vitamin D3) 50 50 mcg PO DAILY 04/25/25 mcg (2,000 unit) capsule multivitamin 1 tab PO DAILY 04/25/25 Previous Rx's ?Medication ?Instructions ?Recorded tramadol 50 mg tablet 50 mg PO Q6H PRN pain #20 tabs 06/14/24 spironolactone 25 1 tab PO DAILY #90 tabs 04/03/25 mg-hydrochlorothiazide 25 mg tablet left wrist splint #1 ea 04/25/25 clopidogrel 75 mg tablet 75 mg PO DAILY #90 tabs 04/26/25 albuterol sulfate 90 mcg/actuation 2 inh inhalation Q4H PRN shortness 05/09/25 breath activated powder inhaler of breath #1 ea dicyclomine 20 mg tablet 20 mg PO TID #10 tabs 05/09/25 prednisone 50 mg tablet 50 mg PO DAILY #5 tabs 05/26/25 prednisone 50 mg tablet 50 mg PO DAILY 5 days #5 tabs 05/26/25 prednisone 20 mg tablet 40 mg (2 x 20 mg) PO DAILY #8 tabs 06/12/25 Allergies Allergy/AdvReac Type Severity Reaction Status Date / Time hydrocodone (HYDROCODONE) Allergy Unknown UNKNOWN Verified 06/12/25 01:38 levofloxacin (LEVOFLOXACIN) Allergy Unknown Rash Verified 06/12/25 01:38 metronidazole (METRONIDAZOLE) Allergy Unknown UNK Verified 06/12/25 01:38 promethazine (PROMETHAZINE) Allergy Unknown Rash Verified 06/12/25 01:38 Codeine Allergy Unknown swelling/ Uncoded 05/26/25 03:37 itching/ hives dye contrast Allergy Unknown red skin Uncoded 05/26/25 03:37 Hydrocodone-Acetaminophen Allergy Unknown rash Uncoded 05/26/25 03:37 Review of Systems Review of Systems: Yes all other systems are reviewed and are negative Constitutional: Constitutional: Denies fatigue and Denies fever(s) Cardiovascular: Cardiovascular: Denies chest pain and Reports dyspnea Respiratory: Respiratory: Reports cough, Reports dyspnea and Reports wheezing Endocrine: Endocrine: Denies fatigue Allergic/Immunologic: Allergic/Immunologic: Reports wheezing PMFSH Past Medical History Attestation statement: The following information was validated with the patient. Medical History Numbness and tingling in both hands Carpal tunnel syndrome on left Diverticulitis Hypertension Surgical History H/O section Family History Family History Father No problems noted. Mother CVD (cardiovascular disease) Social History Social History Alcohol intake: never Patient Tobacco Use Status: Never used Tobacco Smoked in Last 30 Days: No Use of substances other than those prescribed or required for medical reasons: No Advance Directives: No Advance Directives Information Provided: Yes Do you have a plan to hurt others: No Plan Physical Exam ED Vital Signs: Vital Signs - 24 hr 06/12/25 01:32 06/12/25 02:54 Temperature 98.2 F Pulse Rate 109 H 87 Respiratory Rate 18 18 Blood Pressure 132/59 L 131/56 L Pulse Oximetry 97 97 Oxygen Delivery Method Room Air Room Air BMI result Body Mass Index 31.9 Const Other: Alert well-appearing Orientation/consciousness: patient oriented x3 Resp Other: Nonlabored respirations, lungs clear to auscultation no wheezing, occasional bronchospasm type cough Cardio Other: Normal peripheral perfusion Skin Other: Warm dry no rash Neuro General: patient oriented x3, gait normal, no focal motor deficits and CN's II-XI intact bilaterally Psych Other: Cooperative Medications Administered Discontinued Medications Generic Name Dose Route Start Last Admin Trade Name Natalie PRN Reason Stop Dose Admin Prednisone 40 mg 06/12/25 04:15 06/12/25 04:26 Prednisone 20 Mg Tablet PO 06/12/25 04:16 40 mg ONCE ONE Administration Medical Decision Making Medical Decision Making [facility] Narrative: 75-year-old female with a history of hypertension, diabetes, asthma, fibromyalgia, depression, anxiety, sleep apnea who presents with cough and cold symptoms x2 days. Patient states she felt short of breath, that she has been wheezing over the past few days, she use her inhaler. Patient noted her blood pressure to be elevated and her heart rate to be elevated. Denies chest pain or fever. Problem: Age, asthma, diabetes, hypertension History: Per patient I have considered the following differential diagnoses: ACS, bronchitis, asthma exacerbation, viral syndrome, pneumonia Plan: ACS was considered, the patient does have numerous risk factors for coronary artery disease, screening labs including EKG chest x-ray and troponin obtained. Her symptoms are consistent with a mild asthma exacerbation, potentially induced by viral syndrome. She has no wheezing at this time, she did give herself a treatment prior to arrival. Giving oral steroid, adding on a viral panel, chest x-ray is pending. I have independently reviewed the following tests: Labs: No leukocytosis, not anemic, no electrolyte abnormality, troponin 6.6, delta troponin 8.2, viral panel negative EKG: Sinus tachycardia, rate of 103, no ischemic changes no ectopy Chest x-ray:mpression: 1. Borderline cardiomegaly. Otherwise, no acute cardiopulmonary process. No focal pulmonary consolidation. Differential Diagnosis Differential Diagnoses: The differential diagnosis associated with the presentation includes See medical decision-making Admission/Observation Consideration of admission/observation: Escalation of care including admission/observation considered Not applicable Lab Data MDM Lab Attestation statement: I reviewed the patient's lab results. 06/12/25 01:43 06/12/25 01:43 Labs: Lab Results 06/12/25 06/12/25 06/12/25 Range/Units 01:43 04:03 04:05 WBC 6.2 (4.8-10.8) X10*3/uL RBC 3.73 L (4.20-5.50) X10*6/uL Hgb 12.0 (12.0-16.0) g/dl Hct 33.7 L (37.0-47.0) % MCV 90.3 (80.0-98.0) fL MCH 32.2 (27.0-33.0) pg MCHC 35.6 H (31.0-35.0) g/dl RDW 12.6 (11.0-16.0) % Plt Count 211 (160-400) X10*3/uL MPV 9.9 (9.4-12.3) fL Immature Gran % (Auto) 0.3 (0.0-0.4) % Neut % (Auto) 61.3 (45-73) % Lymph % (Auto) 24.3 (20-40) % [place] % (Auto) 11.3 H (2-11) % Eos % (Auto) 2.3 (0-4) % Baso % (Auto) 0.5 (0-2) % Lymph # (Auto) 1.5 (1.2-4.9) X10*3/uL [place] # (Auto) 0.7 (0.1-1.2) X10*3/uL Eos # (Auto) 0.1 (0.0-0.4) X10*3/uL Baso # (Auto) 0.0 (0.0-0.2) X10*3/uL Abs Immat Gran (auto) 0.02 (0.00-0.03) X10*3/uL Absolute Neuts (auto) 3.8 (2.0-8.3) x10*3/uL Absolute Nucleated RBC 0.000 (0.0-0.012) X10*3/uL Nucleated RBC % (auto) 0.0 (0.0-0.2) /100WBC Sodium 137 (135-145) mmol/L Potassium 3.6 (3.3-5.1) mmol/L Chloride 102 (96-108) mmol/L Carbon Dioxide 25 (22-29) mmol/L Anion Gap 14 (12-20) BUN 18 H (9-16) mg/dL Creatinine 0.82 (0.5-1.4) mg/dL Estim Creat Clear Calc 56.4 Estimated GFR > 60 Random Glucose 188 H (60-115) mg/dL Calcium 9.0 (8.4-10.2) mg/dL Total Bilirubin 0.4 (0.0-1.0) mg/dL AST 18 (5-31) U/L ALT 16 (0-31) U/L Alkaline Phosphatase 54 (39-117) U/L Troponin I High Sens 6.6 8.2 (<3.5-17.0) ng/L Total Protein 6.4 L (6.5-8.0) g/dL Albumin 4.2 (3.5-5.0) g/dL Influenza Type A (PCR) NEGATIVE (Negative) Influenza Type B (PCR) NEGATIVE (Negative) RSV RNA Qual (PCR) NEGATIVE (Negative) SARS-CoV-2 RNA (RT-PCR) NEGATIVE (Negative) Independent Interpretation I performed an independent interpretation of an: EKG Radiology Impression Discussion of test interpretation with radiology: I have reviewed the radiologist's reading. Discharge Plan Discharge Clinical Impression: Asthma attack Patient Disposition: Home, Self-Care Instructions: Asthma (ED) Additional Instructions: You are being treated for a mild asthma exacerbation. See home care instructions. Use your inhaler as needed, take the steroid as directed. You do not require any additional steroid today you had a dose in the emergency room, start the steroid tomorrow. All of your screening labs including a cardiac enzymes were normal, there were no concerning changes on the EKG in the chest x-ray is clear. Follow up with your primary care as needed. Prescriptions: New prednisone 20 mg tablet 40 mg PO DAILY Qty: 8 0RF No Action spironolacton-hydrochlorothiaz 25-25 mg tablet 1 tab PO DAILY Qty: 90 1RF clopidogrel 75 mg tablet 75 mg PO DAILY Qty: 90 3RF tramadol 50 mg tablet 50 mg PO Q6H PRN (Reason: pain) Qty: 20 0RF dicyclomine 20 mg tablet 20 mg PO TID Qty: 10 0RF albuterol sulfate 90 mcg/actuation aerosol powdr breath activated 2 inh inhalation Q4H PRN (Reason: shortness of breath) Qty: 1 0RF prednisone 50 mg tablet 50 mg PO DAILY 5 Days Qty: 5 0RF prednisone 50 mg tablet 50 mg PO DAILY Qty: 5 0RF metformin 500 mg tablet extended release 24 hr 500 mg PO DAILY losartan 100 mg tablet 100 mg PO DAILY lorazepam 1 mg tablet 1 mg PO BID PRN (Reason: anxiety) atorvastatin 40 mg tablet 40 mg PO DAILY cyanocobalamin (vitamin B-12) 500 mcg tablet 500 mcg PO DAILY metoprolol succinate 100 mg tablet extended release 24 hr 100 mg PO DAILY cetirizine 10 mg tablet 10 mg PO DAILY PRN (Reason: itch) multivitamin Tablet 1 tab PO DAILY cholecalciferol (vitamin D3) 50 mcg (2,000 unit) capsule 50 mcg PO DAILY (DME) left wrist splint See Rx Instructions .Route .MEDSUPPLY Qty: 1 0RF Rx Instructions: As directed Print Language: Cuban
--- NOTE | 2025-06-12 05:50 | PC.NURSE ---
reviewed discharge instructions with pt , pt verbalized understanding, no sign of distress.
[2025-06-12 06:01] VITALS: BP 131/56; PULSE 87; RESP 18; TEMP 36.1; O2SAT 97
== END 2025-06-12 06:01 | disposition home or self-care (01) ==
PROVIDERS: Physician Assistant Medical; Emergency Provider Emergency Medicine
DX: J45.901 Unspecified asthma with (acute) exacerbation (principal); I10 Essential (primary) hypertension; E11.9 Type 2 diabetes mellitus without complications; Z88.1 Allergy status to other antibiotic agents; Z88.5 Allergy status to narcotic agent; Z88.8 Allergy status to other drugs, medicaments and biological substances
CPT/HCPCS: 36415; 71045; 80053; 84484; 85025; 87637; 93005; 99283; 99284

== ENCOUNTER → 2025-06-12 01:30 | Outpatient (BNV) | payer OTHER, SELFPAY | PROVIDERS: Emergency Provider Emergency Medicine; Visit Provider Internal Medicine Cardiovascular Disease | DX: R00.0 Tachycardia, unspecified (principal) | CPT/HCPCS: 93010 ==

== ENCOUNTER → 2025-06-12 03:55 | Outpatient (BNV) | payer OTHER, SELFPAY | PROVIDERS: Visit Provider Radiology Diagnostic Radiology | DX: R06.02 Shortness of breath (principal) | CPT/HCPCS: 71045 ==

== ENCOUNTER 2025-06-28 10:04 | Outpatient (REF) | payer OTHER, SELFPAY ==
--- OUTSIDE RECORDS SUMMARY | 2025-06-28 09:00 | XMS_ITS | Encounter Summary ---
Author Organization [employer] Address [address] [facility] [address] 7t [place] [address] Care Team Providers Care Key Attendant Name Role Phone Xuan Mckeon MD Primary Care Provider [phone] Yariel Schmid PharmD Unavailable [phone] Encounter Details Date Type Department Care Team (Latest Contact Info) Description 06/28/2025 9:00 AM EDT Office Visit [facility] [address] [place], [place] [phone] Xuan Mckeon MD [address] [place], [place] [phone] Varicose veins of both lower extremities, unspecified whether complicated (Primary Dx); Primary hypertension; Dyslipidemia; Vitamin B12 deficiency (non anemic); Type 2 diabetes mellitus without complication, without long-term current use of insulin (HCC); Adrenal incidentaloma (CMS/HCC); Metabolic dysfunction-associated steatotic liver disease (MASLD); History of diverticulitis; Gastroesophageal reflux disease, unspecified whether esophagitis present; Arthritis of knee; Chronic bilateral low back pain, unspecified whether sciatica present; TIA (transient ischemic attack); Obstructive sleep apnea syndrome; Chronic urticaria; Shortness of breath; Exertional chest pain; Encounter for screening for respiratory tuberculosis Social History Tobacco Use Types Packs/Day Years [...] Sign Reading Time Taken Comments Blood Pressure 130/60 06/28/2025 9:14 AM EDT Pulse 71 06/28/2025 9:14 AM EDT Temperature 36.1 C (96.9 F) 06/28/2025 9:14 AM EDT Respiratory Rate 15 06/28/2025 9:14 AM EDT Oxygen Saturation 97% 06/28/2025 9:14 AM EDT Inhaled Oxygen Concentration - - Weight 75.3 kg (166 lb) 06/28/2025 9:14 AM EDT Height 154.9 cm (5' 1 ) 06/28/2025 9:14 AM EDT Body Mass Index 31.37 06/28/2025 9:14 AM EDT documented in this encounter Miscellaneous Notes * Assessment & Plan Note - Xuan Mckeon MD - 06/28/2025 4:55 AM EDTAssociated Problem(s): Type 2 diabetes mellitus (HCC) - A1C 6.4% on 05/15/25, the same from 6.4% on 01/11/25 -continue metformin ER 500 mg daily, consider increasing if glycemic control does not improve with lifestyle modifications. -continue working on lifestyle modifications -Last lipid profile: 11/08/24 -Last microalbumin test: 06/08/24, no microalbuminuria -Last foot exam: 05/30/24 -Last comprehensive eye exam: -IZ: due for COVID booster & Influenza for the season * Assessment & Plan Note - Xuan Mckeon MD - 06/28/2025 4:54 AM EDTAssociated Problem(s): Exertional chest pain - following with ip counsel - prescribed amlodipine by ip counsel, but patient does not want to take * Assessment & Plan Note - Xuan Mckeon MD - 06/28/2025 4:54 AM EDTAssociated Problem(s): Dyslipidemia Current medication: Atorvastatin 40 mg [...] Plan Note - Xuan Mckeon MD - 06/28/2025 4:53 AM EDTAssociated Problem(s): Primary hypertension -Goal BP < 130/80 per ACC/AHA -BP at goal today -Co-managed with ip counsel, production line mechanic, and PharmD. -pt advised to continue checking BP at home -ip counsel: Dr. Karimi, last visit in 04/23/2025; exertional dyspnea. Possible evaluation with CTA or coronary angiography. -normal Holter monitor and echo -continue working on lifestyle modifications -continue losartan 100 mg daily -continue metoprolol succinate 100 mg daily - Continue spironolactone - hctz 25-25 mg daily (history of hypokalemia on KCl supplement) as prescribed by production line mechanic Previous Treatment: -discontinued HCTZ and replaced chlorthalidone. -discontinued Amlodipine d/t leg swelling (recently prescribed by ip counsel again, but patient has not started it yet) documented in this encounter Plan of Treatment Upcoming Encounters Date Type Department Care Team (Late st Contact Info) Description 08/09/2025 10:30 AM EST Telemedicine [facility] [address] [place], [place] [phone] Yariel Schmid, PharmD [address] [place], [place] [phone] Scheduled Orders Name Type Priority Associated Diagnoses Orde r Schedule T-SPOT .TB Lab Routine Encounter for screening for respiratory tuberculosis Expected: 06/28/2025 (Approximate), Expires: 06/28/2026 Hemoglobin A1c Lab Routine Type 2 diabetes mellitus without complication, without long-term current use of insulin (HCC) Expected: 06/28/2025 (Approximate), Expires: 06/28/2026 Comprehensive Metabolic Panel Lab Routine Primary hypertension Expected: 06/28/2025 (Approximate), Expires: 06/28/2026 Lipid Panel with Reflex to Direct LDL Lab Routine Dyslipidemia Expected: 06/28/2025 (Approximate), Expires: 06/28/2026 Albumin, Random Urine W/Creatinine Lab Routine Primary hypertension Type 2 diabetes mellitus without complication, without long-term current use of insulin (HCC) Expected: 06/28/2025 (Approximate), Expires: 06/28/2026 documented as of this encounter Goals Goal Patient Goal Type Associated Problems Recent Progress Patient-Stated? Author Blood Pressure < 140/90 Blood Pressure 130/60( 025 9:14 AM EDT) No Yariel Schmid Leelee documented as of this encounter Visit Diagnoses Diagnosis Varicose veins of both lower extremities, unspecified whether complicated- Primary Primary hypertension Unspecified essential hypertension Dyslipidemia Other and unspecified hyperlipidemia Vitamin B12 deficiency (non anemic) Other B-complex deficiencies Type 2 diabetes mellitus without complication, without long-term current use of insulin (HCC) Adrenal incidentaloma (CMS/HCC) Metabolic dysfunction-associated steatotic liver disease (MASLD) History of diverticulitis Gastroesophageal reflux disease, unspecified whether esophagitis present Arthritis of knee Unspecified arthropathy, lower leg Chronic bilateral low back pain, unspecified whether sciatica present TIA (transient ischemic attack) Unspecified transient cerebral ischemia Obstructive sleep apnea syndrome Obstructive sleep apnea (adult) (pediatric) Chronic urticaria Other specified urticaria Shortness of breath Exertional chest pain Unspecified chest pain Encounter for screening for respiratory tuberculosis documented in this encounter Additional Health Concerns Assessment Noted Time PHQ-9 Depression Total Score: 0 05/15/20 25 10:49 AM EDT documented as of this encounter Care Teams Key Attendant Relationship Specialty Start Date End Date Xuan Mckeon MD [address] [place] [address] PCP - General Family Medicine 09/20/20 Yariel Schmid, CristóbalD [address] [place] [address] Pharmacist Internal Medicine 11/23/22 documented as of this encounter
--- OUTSIDE RECORDS SUMMARY | 2025-06-28 11:49 | XMS_ITS | Encounter Summary ---
Author Organization [employer] Address [address] [facility] 7t [place] [address] Care Team Providers Care Clay Hoister Name Role Phone Xuan Mckeon MD Primary Care Provider [phone] Yariel Schmid PharmD Unavailable [phone] Reason for Visit * Reason Comments Med Refill Encounter Details Date Type Department Care Team ([facility] st Contact Info) Description 10/05/2023 Refill [facility] [address] [place], [place] [phone] Xuan Mckeon MD [address] [place], [place] [phone] Vitamin B12 deficiency Social History Tobacco Use [...] Info) Description 08/09/2025 10:30 AM EST Telemedicine [facility] [address] [place] [address] Yariel Schmid PharmD [address] [place] [address] documented as of this encounter Goals Goal Patient Goal Type Associated Problems Recent Progress Patient-Stated? Author Blood Pressure < 140/90 Blood Pressure 130/60( 025 9:14 AM EDT) No Yariel Schmid PharmD documented as of this encounter Visit Diagnoses Diagnosis Vitamin B12 deficiency Other B-complex deficiencies documented in this encounter Additional Health Concerns Assessment Noted Time PHQ-9 Depression Total Score: 4 12/18/19 23 10:48 AM EDT documented as of this encounter Care Teams Clay Hoister Relationship Specialty Start Date End Date Xuan Mckeon MD [address] [place] [address] PCP - General Family Medicine 09/20/20 Yariel Schmid PharmD [address] [place] [address] [phone] Pharmacist Internal Medicine 11/23/22 documented as of this encounter
--- OUTSIDE RECORDS SUMMARY | 2025-06-28 11:50 | XMS_ITS | Encounter Summary ---
Author Organization [facility] Address [address] [place] [address] 7t [place] [address] Care Team Providers Care Pole Peeler Name Role Phone Xuan Mckeon MD Primary Care Provider [phone] Yariel Schmid PharmD Unavailable [phone] Reason for Visit * Reason Comments Med Refill Encounter Details Date Type Department Care Team (Late Contact Info) Description 04/07/[address] [facility] [address] [place] [address] [phone] Xuan Mckeon MD [address] [place] [address] [phone] Vitamin B12 deficiency Social History Tobacco Use [...] Department Care Team (Late Contact Info) Description 08/09/2025 10:30 AM EST Telemedicine [facility] [address] [place], [place] [phone] Yariel Schmid, PharmD [address] [place], [place] [phone] documented as of this encounter Goals Goal Patient Goal Type Associated Problems Recent Progress Patient-Stated? Author Blood Pressure < 140/90 Blood Pressure 130/60( 025 9:14 AM EDT) No Yariel Schmid, PharmD documented as of this encounter Visit Diagnoses Diagnosis Vitamin B12 deficiency Other B-complex deficiencies documented in this encounter Additional Health Concerns Assessment Noted Time PHQ-9 Depression Total Score: 4 12/18/19 23 10:48 AM EDT documented as of this encounter Care Teams Pole Peeler Relationship Specialty Start Date End Date Xuan Mckeon MD [address] [place] [address] PCP - General Family Medicine 09/20/20 Yariel Schmid, PharmD [address] [place] [address] Pharmacist Internal Medicine 11/23/22 documented as of this encounter
--- OUTSIDE RECORDS SUMMARY | 2025-06-28 11:50 | XMS_ITS | Clinical Summary ---
Author Organization [facility] Address [id number] [place] [phone] Care Team Providers Care Senior Front End Engineer Name Role Phone Unavailable Primary Care Provider [...]
--- OUTSIDE RECORDS SUMMARY | 2025-06-28 11:50 | XMS_ITS | Encounter Summary ---
Author Organization [employer] [facility] Address [address] [facility] 7t [place] [address] Care Team Providers Care Electric Power Line Repairer Name Role Phone Xuan Mckeon MD Primary Care Provider [phone] Yariel Schmid PharmD Unavailable [phone] Encounter Details Date Type Department Care Team (Latest Contact Info) Description 01/23/2022 Abstract [facility] Dental, Provider, DDS Social History Tobacco [...] Info) Description 08/09/2025 10:30 AM EST Telemedicine [facility] [address] [place] [address] Yariel Schmid PharmD [address] [place] [address] documented as of this encounter Visit Diagnoses Not on filedocumented in this encounter Care Teams Electric Power Line Repairer Relationship Specialty Start Date End Date Xuan Mckeon MD [address] [place] [address] PCP - General Family Medicine 09/20/20 Yariel Schmid, CristóbalD [address] [place] [address] Pharmacist Internal Medicine 11/23/22 documented as of this encounter
--- OUTSIDE RECORDS SUMMARY | 2025-06-28 11:50 | XMS_ITS | Encounter Summary ---
Author Organization [employer] Address [address] [facility] 7t [place] [address] Care Team Providers Care Steel Division Supervisor Name Role Phone Xuan Mckeon MD Primary Care Provider [phone] Yariel Schmid PharmD Unavailable [phone] Reason for Visit * Reason Comments Med Refill Encounter Details Date Type Department Care Team ([facility] st Contact Info) Description 10/05/2023 Refill [facility] [address] [place], [place] [phone] Xuan Mckeon MD [address] [place], [place] [phone] Vitamin B12 deficiency Social History Tobacco Use [...] Info) Description 08/09/2025 10:30 AM EST Telemedicine [facility] [address] [place] [address] Yariel Schmid PharmD [address] [place] [address] documented as of this encounter Goals Goal [...] as of this encounter Care Teams Steel Division Supervisor Relationship Specialty Start Date End Date Xuan Mckeon MD [address] [place] [address] PCP - General Family Medicine 09/20/20 Yariel Schmid PharmD [address] [place] [phone] Pharmacist Internal Medicine 11/23/22 documented as of this encounter
--- OUTSIDE RECORDS SUMMARY | 2025-06-28 11:50 | XMS_ITS | Encounter Summary ---
Author Organization [employer] Address [address] [facility] 7t [place] [address] Care Team Providers Care Retirement Assistant Name Role Phone Xuan Mckeon MD Primary Care Provider [phone] Yariel Schmid PharmD Unavailable [phone] Reason for Visit * Reason Comments Med Refill Encounter Details Date Type Department Care Team ([facility] st Contact Info) Description 10/18/2024 Refill [facility] [address] [place], [place] [phone] Xuan Mckeon MD [address] [place], [place] [phone] Fibromyalgia Social History Tobacco Use Types Packs/Day [...] Info) Description 08/09/2025 10:30 AM EST Telemedicine [facility] [address] [place] [address] Yariel Schmid PharmD [address] [place] [phone] documented as of this encounter Goals Goal [...] documented as of this encounter Care Teams Retirement Assistant Relationship Specialty Start Date End Date Xuan Mckeon MD [address] [place] [address] PCP - General Family Medicine 09/20/20 Yariel Schmid, CristóbalD [address] [place] [address] [phone] Pharmacist Internal Medicine 11/23/22 documented as of this encounter
--- OUTSIDE RECORDS SUMMARY | 2025-06-28 11:50 | XMS_ITS | Encounter Summary ---
Author Organization [employer] Address [address] [facility] [address] 7t [place] [address] Care Team Providers Care Tour Bus Driver Name Role Phone Xuan Mckeon MD Primary Care Provider [phone] Yariel Schmid PharmD Unavailable [phone] Reason for Visit * Reason Onset Date Comments Appointment Request 08/23/2024 Encounter Details Date Type Department Care Team ([facility] st Contact Info) Description 08/23/2024 Telephone [facility] [address] [place] [address] Xuan Mckeon MD [address] [place] [address] Appointment Request Social History Tobacco Use Types [...] today's CDTM visit. Please contact pt at [phone]. (Indian Speaker) documented in this encounter Plan of Treatment Upcoming Encounters Date Type Department Care Team ([facility] st Contact Info) Description 08/09/2025 10:30 AM EST Telemedicine [facility] [address] [place] [address] Yariel Schmid PharmD [address] [place] [address] documented as of this encounter Goals Goal Patient Goal Type Associated Problems Recent Progress Patient-Stated? Author Blood Pressure < 140/90 Blood Pressure 130/60( 025 9:14 AM EDT) No Yariel Schmid, Leelee documented as of this encounter Visit Diagnoses Not on filedocumented in this encounter Additional Health Concerns Assessment Noted Time PHQ-9 Depression Total Score: 11 024 10:30 AM EDT documented as of this encounter Care Teams Tour Bus Driver Relationship Specialty Start Date End Date Xuan Mckeon MD [address] [place], [place] [phone] PCP - General Family Medicine 09/20/20 Yariel Schmid, CristóbalD [address] [place] [address] Pharmacist Internal Medicine 11/23/22 documented as of this encounter
--- OUTSIDE RECORDS SUMMARY | 2025-06-28 11:50 | XMS_ITS | Encounter Summary ---
Author Organization [employer] Address [address] [facility] [address] 7t [place] [address] Care Team Providers Care Category Manager Name Role Phone Xuan Mckeon MD Primary Care Provider [phone] Yariel Schmid PharmD Unavailable [phone] Encounter Details Date Type Department Care Team ([facility] st Contact Info) Description 09/20/2024 Orders Only [facility] [address] [place], [place] [phone] Xuan Mckeon MD [address] [place], [place] [phone] Left lower quadrant abdominal pain (Primary Dx); [...] 08/09/2025 10:30 AM EST Telemedicine [facility] [address] [place] [address] Yariel Schmid, PharmD [address] [place] [address] documented as of this encounter Goals Goal [...] Sedimentation Rate 25(H) 0 - 20 MM/HR [facility] Comment:Patients with polycy themia and many hemoglobin abnormalitiesmay have depressed sed rates whereas patients with anemiamay have elevated sed rates. Blood Venous blood specimen / Unknown 09/21/2024 9:16 AM EST 09/21/2024 11:12 AM EST Xuan Mckeon MD LAB BLOOD ORDERABLES Final Resul t Performing Organization Address [facility] Co de Phone Number [facility] [address] [place] [address] [phone] * (ABNORMAL) C-reactive Protein (09/21/2024 9:16 AM EST) [facility] C Reactive Protein 0.96(H) < or = 0.50 mg/dL [facility] Blood Venous blood specimen / Unknown 09/21/2024 9:16 AM EST 09/21/2024 11:12 AM EST Xuan Mckeon MD LAB BLOOD ORDERABLES Final Resul t Performing Organization Address [facility] de Phone Number [facility] [address] [place] [phone] * (ABNORMAL) CBC auto differential (09/21/2024 9:16 AM EST) Pathologist [facility] White Blood Count 6.2 4.8 - 10.8 X10*3/uL [facility] Red Blood Count 3.99(L) 4.20 - 5.50 X10*6/uL [facility] Hemoglobin 12.4 12.0 - 16.0 g/dl [facility] Hematocrit 36.3(L) 37.0 - 47.0 % [facility] Mean Corpuscular Volume 91.0 80.0 - 98.0 fL [facility] Mean Corpuscular Hemoglobin 31.1 27.0 - 33.0 pg [facility] Mean Corpuscular HGB Conc 34.2 31.0 - 35.0 g/dl [facility] Red Cell Distribution Width 12.5 11.0 - 16.0 % [facility] Platelet Count 288 160 - 400 X10*3/uL [facility] Mean Platelet Volume 10.5 9.4 - 12.3 fL [facility] Neutrophils Percent Auto 70.5 45 - 73 % [facility] Imm Gran Pct Auto 0.3 0.0 - 0.4 % [facility] Lymphocytes Percent Auto 20.0 20 - 40 % [facility] Monocytes Percent Auto 7.1 2 - 11 % [facility] Eosinophils Percent Auto 1.6 0 - 4 % [facility] Basophils Percent Auto 0.5 0 - 2 % [facility] NRBC Pct Auto 0.0 0.0 - 0.2 /100WBC [facility] Neutrophils Absolute Auto 4.3 2.0 - 8.3 x10*3/uL [facility] Imm Gran Abs Auto 0.02 0.00 - 0.03 X10*3/uL [facility] Lymphocytes Absolute Auto 1.2 1.2 - 4.9 X10*3/uL [facility] Monocytes Absolute Auto 0.4 0.1 - 1.2 X10*3/uL [facility] Eosinophils Absolute Auto 0.1 0.0 - 0.4 X10*3/uL [facility] Basophils Absolute Auto 0.0 0.0 - 0.2 X10*3/uL [facility] NRBC Abs Auto 0.000 0.0 - 0.012 X10*3/uL [facility] Blood Venous blood specimen / Unknown 09/21/2024 9:16 AM EST 09/21/2024 11:12 AM EST us Xuan Mckeon MD LAB BLOOD ORDERABLES Final Resul t [facility] [address] [place] [address] [phone] documented in this encounter Visit Diagnoses Diagnosis Left lower quadrant abdominal pain- Primary Diverticulitis Diverticulitis of colon (without mention of hemorrhage) documented in this encounter Additional Health Concerns Assessment Noted Time PHQ-9 Depression Total Score: 11 024 10:30 AM EDT documented as of this encounter Care Teams Category Manager Relationship Specialty Start Date End Date Xuan Mckeon MD [address] [place] [address] PCP - General Family Medicine 09/20/20 Yariel Schmid, CristóbalD [address] [place] [address] Pharmacist Internal Medicine 11/23/22 documented as of this encounter
--- OUTSIDE RECORDS SUMMARY | 2025-06-28 11:50 | XMS_ITS | Encounter Summary ---
Author Organization [employer] Address [address] [facility] 7t [place] [address] Care Team Providers Care Kaitara Taraka Name Role Phone Xuan Mckeon MD Primary Care Provider [phone] Yariel Schmid PharmD Unavailable [phone] Reason for Referral * Consultation (Routine) - Closed Specialty Diagnoses / Procedures Referred By Contac t Referred To Contact Pharmacy Diagnoses Primary hypertension Type 2 diabetes mellitus without complication, without long-term current use of insulin ([facility]) Xuan Mckeon MD [address] [place] [phone] Phone: tel: fax: Referral ID Status Reason Start Date Expiration Date V isits Requested Visits Authorized [id number] Closed Consult and Treat 07/18/2024 07/18/2025 6 6 Encounter Details Date Type Department Care Team (Late st Contact Info) Description 07/18/2024 Orders Only [facility] [address] [place] [address] [phone] Xuan Mckeon MD [address] [place] [address] [phone] Primary hypertension (Primary Dx); Type 2 diabetes [...] Info) Description 08/09/2025 10:30 AM EST Telemedicine [facility] [address] [place] [address] Yariel Schmid, PharmD [address] [place] [address] Scheduled Referrals Name Type Priority Associated Diagnoses Orde r Schedule Referral to Pharmacy CDTM Outpatient Referral Routine Primary hypertension Type 2 diabetes mellitus without complication, without long-term current use of insulin ([facility]) Ordered: 07/18/2024 documented as of this encounter Goals Goal Patient Goal Type Associated Problems Recent Progress Patient-Stated? Author Blood Pressure < 140/90 Blood Pressure 130/60( 025 9:14 AM EDT) No Yariel Schmid, PharmD documented as of this encounter Visit Diagnoses Diagnosis Primary hypertension- Primary Unspecified essential hypertension Type 2 diabetes mellitus without complication, without long-term current use of insulin ([facility]) documented in this encounter Additional Health Concerns Assessment Noted Time PHQ-9 Depression Total Score: 11 024 10:30 AM EDT documented as of this encounter Care Teams Kaitara Taraka Relationship Specialty Start Date End Date Xuan Mckeon MD [address] [place] [address] PCP - General Family Medicine 09/20/20 Yariel Schmid, PharmD [address] [place] [address] Pharmacist Internal Medicine 11/23/22 documented as of this encounter
--- OUTSIDE RECORDS SUMMARY | 2025-06-28 11:50 | XMS_ITS | Encounter Summary ---
Author Organization [employer] Address [address] [facility] 7t [place] [address] Care Team Providers Care Skid Worker Name Role Phone Xuan Mckeon MD Primary Care Provider [phone] Yariel Schmid PharmD Unavailable [phone] Reason for Visit * Reason Comments Med Refill Encounter Details Date Type Department Care Team ([facility] st Contact Info) Description 09/08/2023 Refill [facility] [address] [place], [place] [phone] Xuan Mckeon MD [address] [place], [place] [phone] Other specified anxiety disorders Social History Tobacco [...] Info) Description 08/09/2025 10:30 AM EST Telemedicine [facility] [address] [place] [address] Yariel Schmid PharmD [address] [place] [address] documented as of this encounter Goals Goal [...] documented as of this encounter Care Teams Skid Worker Relationship Specialty Start Date End Date Xuan Mckeon MD [address] [place] [address] PCP - General Family Medicine 09/20/20 Yariel Schmid PharmD [address] [place] [address] [phone] Pharmacist Internal Medicine 11/23/22 documented as of this encounter
--- OUTSIDE RECORDS SUMMARY | 2025-06-28 11:50 | XMS_ITS | Encounter Summary ---
Author Organization [employer] Address [address] [facility] [address] [place] [address] Care Team Providers Care Stream Control Officer Name Role Phone Xuan Mckeon MD Primary Care Provider [phone] Yariel Schmid PharmD Unavailable [phone] Encounter Details Date Type Department Care Team (Late st Contact Info) Description 09/23/2022 Orders Only [facility] [address] [place] [address] Shannon Rich LPN Social History Tobacco Use [...] Info) Description 08/09/2025 10:30 AM EST Telemedicine [facility] MEDICINE [address] [place] [address] Yariel Schmid, PharmD [address] [place] [address] documented as of this encounter Visit Diagnoses Not on filedocumented in this encounter Care Teams Stream Control Officer Relationship Specialty Start Date End Date Xuan Mckeon MD [address] [place] [address] PCP - General Family Medicine 09/20/20 Yariel Schmid, PharmD [address] [place] [address] Pharmacist Internal Medicine 11/23/22 documented as of this encounter
--- OUTSIDE RECORDS SUMMARY | 2025-06-28 11:50 | XMS_ITS | Encounter Summary ---
Author Organization [facility] [employer] Address [address] [facility] [address] [place] [address] Care Team Providers Care Forest Logistics Manager Name Role Phone Xuan Mckeon MD Primary Care Provider [phone] Yariel Schmid PharmD Unavailable [phone] Reason for Visit * Reason Comments Med Refill Encounter Details Date Type Department Care Team (Late Contact Info) Description 03/18/[address] [facility]S [address] [place], [place] [phone] Xuan Mckeon MD [address] [place], [place] [phone] Other specified anxiety disorders Social History Tobacco [...] 10:30 AM EST Telemedicine [facility] MEDICINE [address] [place], [place] [phone] Yariel Schmid, PharmD [address] [place], [place] [phone] documented as of this encounter Goals Goal [...] documented as of this encounter Care Teams Forest Logistics Manager Relationship Specialty Start Date End Date Xuan Mckeon MD [address] [place] [address] PCP - General Family Medicine 09/20/20 Yariel Schmid, PharmD [address] [place] [address] Pharmacist Internal Medicine 11/23/22 documented as of this encounter
--- OUTSIDE RECORDS SUMMARY | 2025-06-28 11:50 | XMS_ITS | Clinical Summary ---
Author Organization [employer] Address [address] [facility] [address] [place] [address] Care Team Providers Care Call Center Operations Manager Name Role Phone Xuan Mckeon MD Primary Care Provider [phone] Yariel Schmid PharmD Unavailable [phone] Allergies Active Allergy Reactions Criticality Noted Date [...] DAILY 100 each 11 10/18/19 24 Active FREESTYLE LITE test stripIndication s:Type [...] EVERY DAY 90 tablet 05/02/20 25 Active EPINEPHrine (Epipen) 0.3 MG/0.3ML injection syringe [...] 30 tablet 11 06/11/20 25 2025 Active metoprolol succinate XL (Toprol-XL) 100 MG 24 hr tabletIndicatio ns:Primary hypertension TAKE 1 TABLET BY MOUTH AT BEDTIME 90 tablet 3 06/25/20 Active budesonide-form oterol (Symbicort) 80-4.5 MCG/ACT inhaler Take 2 puffs twice daily. May take additional 1-2 puff every 4 hours as needed for wheezing. Maximum 12 puffs per day. Rinse mouth with water after use. Do not swallow. 1 each 11 06/28/20 Active metoprolol succinate XL (Toprol XL) 100 MG 24 hr tabletIndicatio ns:Primary hypertension Take 1 tablet by mouth once daily at bedtime 90 tablet 3 06/28/20 24 2024 Discontinued hydrOXYzine pamoate (Vistaril) 25 MG capsuleIndicati ons:Urticaria TAKE 1 CAPSULE BY MOUTH AT BEDTIME NEEDED FOR ITCHING 30 capsule 1 11/03/19 25 2024 Discontinued(T herapy completed) albuterol 108 (90 Base) MCG/ACT inhaler Inhale 2 puffs every 4 (four) hours if needed for wheezing. 18 g 05/15/20 25 2024 Discontinued(A lternate therapy) cetirizine (ZyrTEC) 10 MG tablet TAKE 1 [...] and may have asthma - Previously seeing e marketing specialist. Patient may benefit from biologic medication. Will refer her back to specialist Chronic urticaria 05/26/2025 Assessment & Plan (05/26/2025 6:48 AM EDT): - Frequent allergic reaction - Continue cetirizine - Previously tried loratadine and fexofenadine - Continue judicious use of diphenhydramine as needed - Previously seen by e marketing specialist, but was unable to complete allergy [...] has already been seen and treated by e marketing specialist. She states she could not complete [...] has already been seen and treated by e marketing specialist. She states she could not complete [...] has already been seen and treated by e marketing specialist. She states she could not complete [...] Exertional chest pain 12/17/2022 Assessment & Plan (06/28/2025 4:54 AM EDT): - following with airbrush artist technical - prescribed amlodipine by airbrush artist technical, but patient does not want to take Assessment & Plan (12/17/2022 11:27 AM EDT): Seen by Contact Lens Cutter, Dr. Karimi, on 11/26/22. Reported exertional Cheat Pain Stress Test was ordered -will check status Chronic low back pain 10/04/2022 Assessment & Plan (10/04/2022 5:48 AM EST): Continue judicious use of APAP and cyclobenzaprine Strain of trapezius muscle 09/29/2022 Primary hypertension 09/29/2022 Assessment & Plan (06/28/2025 4:53 AM EDT): -Goal BP < 130/80 per ACC/AHA -BP at goal today -Co-managed with airbrush artist technical, chucking and boring machine operator, and PharmD. -pt advised to continue checking BP at home -airbrush artist technical: Dr. Karimi, last visit in 04/23/2025; exertional dyspnea. Possible evaluation with CTA or coronary angiography. -normal Holter monitor and echo -continue working on lifestyle modifications -continue losartan 100 mg daily -continue metoprolol succinate 100 mg daily - Continue spironolactone - hctz 25-25 mg daily (history of hypokalemia on KCl supplement) as prescribed by chucking and boring machine operator Previous Treatment: -discontinued HCTZ and replaced chlorthalidone. -discontinued Amlodipine d/t leg swelling (recently prescribed by airbrush artist technical again, but patient has not started it yet) Assessment & Plan (05/26/2025 6:43 AM EDT): -Goal BP < 130/80 per ACC/AHA -BP at goal today -Co-managed with airbrush artist technical, chucking and boring machine operator, and PharmD. -pt advised to continue checking BP at home -airbrush artist technical: Dr. Karimi, last visit in 04/23/2025; exertional dyspnea. Possible evaluation with CTA or coronary angiography. -normal Holter monitor and echo -continue working on lifestyle modifications -continue losartan 100 mg daily -continue metoprolol succinate 100 mg daily - Continue spironolactone - hctz 25-25 mg daily (history of hypokalemia on KCl supplement) as prescribed by chucking and boring machine operator Previous Treatment: -discontinued HCTZ and replaced chlorthalidone. -discontinued Amlodipine d/t leg swelling (recently prescribed by airbrush artist technical again, but patient has not started it yet) Assessment & Plan (01/14/2025 5:13 PM EDT): -Goal BP <140/90 per JNC-8, < 130/80 per ACC/AHA -BP not at goal today -Co-managed with airbrush artist technical and PharmD. -pt advised to continue checking BP at home -airbrush artist technical: Dr. Karimi, last visit in 12/06/24; exertional dyspnea. Possible evaluation with CTA or coronary angiography -normal Holter monitor and echo -continue working on lifestyle modifications -continue losartan 100 mg daily -continue metoprolol succinate 100 mg daily - start spironolactone - hctz 25-25 mg daily (history of hypokalemia on KCl supplement) as prescribed by chucking and boring machine operator Previous Treatment: -discontinued HCTZ and [...] -BP not at goal today -Co-managed with airbrush artist technical and PharmD. -pt advised to continue checking BP at home -airbrush artist technical: Dr. Karimi, last visit in 11/26/22; exertional [...] -BP not at goal today -Co-managed with airbrush artist technical and PharmD. -pt advised to continue checking BP at home -airbrush artist technical: Dr. Karimi, last visit in 11/26/22; exertional [...] -BP not at goal today -Co-managed with airbrush artist technical and PharmD. -pt advised to continue checking BP at home -airbrush artist technical: Dr. Karimi, last visit in 11/26/22; exertional [...] < 130/80 per ACC/AHA - co-managed with airbrush artist technical and PharmD. -pt advised to continue checking BP at home -airbrush artist technical: Dr. Karimi, last visit in 11/26/22; exertional [...] < 130/80 per ACC/AHA - co-managed with airbrush artist technical and PharmD. -pt advised to continue checking BP at home -airbrush artist technical: Dr. Karimi, last visit in 11/26/22; exertional [...] advised to continue checking BP at home -airbrush artist technical: Dr. Karimi, last visit in 11/26/22; exertional [...] advised to continue checking BP at home -airbrush artist technical: Dr. Karimi, last visit in 07/06/22; concerns [...] on 07/03/22 - Started on Plavix by airbrush artist technical; ASA was discontinued due to GI bleed - Continue statin, clopidogrel, and losartan - Continue working on lifestyle modification / risk factor management Assessment & Plan (01/14/2025 5:04 PM EDT): - seen in ED on 07/03/22 - Started on Plavix by airbrush artist technical; ASA was discontinued due to GI bleed - Continue statin, clopidogrel, and losartan - Continue working on lifestyle modification / risk factor management Assessment & Plan (05/30/2024 11:03 AM EDT): - seen in ED on 07/03/22 - Started on Plavix by airbrush artist technical; ASA was discontinued due to GI bleed - Continue statin, clopidogrel, and losartan - Continue working on lifestyle modification / risk factor management Assessment & Plan (11/30/2023 4:38 AM EDT): - seen in ED on 07/03/22 - Started on Plavix by airbrush artist technical; ASA was discontinued due to GI bleed - Continue statin, clopidogrel, and losartan - Continue working on lifestyle modification / risk factor management Assessment & Plan (12/17/2022 11:23 AM EDT): - seen in ED on 07/03/22 - Started on Plavix by airbrush artist technical; ASA was discontinued due to GI bleed - Continue statin, clopidogrel, and losartan - Continue working on lifestyle modification / risk factor management Assessment & Plan (10/04/2022 5:51 AM EST): - seen in ED on 07/03/22 - Started on Plavix by airbrush artist technical; ASA was discontinued due to GI bleed - Continue statin, clopidogrel, and losartan - Continue working on lifestyle modification / risk factor management Type 2 diabetes mellitus 03/28/2020 Assessment & Plan (06/28/2025 4:55 AM EDT): - A1C 6.4% on 05/15/25, the [...] Influenza for the season Assessment & Plan (05/15/2025 12:50 PM EDT): [...] season Vitamin B12 deficiency (non anemic) 03/28/2020 Seborrheic psoriasis 09/17/2019 Adrenal incidentaloma 12/28/2018 Assessment & Plan (01/14/2025 5:14 PM EDT): - most recent imaging in February 2023 - benign-appearing left adrenal cyst - repeating CT by chucking and boring machine operator Assessment & Plan (06/14/2023 3:20 [...] of lorazepam Dyslipidemia 05/06/2018 Assessment & Plan (06/28/2025 4:54 AM EDT): Current medication: Atorvastatin 40 mg at bedtime Last lipid profile: 11/08/24 Pt is recommended to be on high-intensity statin therapy according to guideline. Pt is hesitant to increasing its dose because of its potential side effect. Continue working on lifestyle modifications Check lipid profile and liver function test at least once a year Assessment & Plan (05/15/2025 12:51 PM EDT): [...] large intestine without hemorr nahun 03/17/2016 Varicose veins of both lower extremities 013 Diabetic neuropathy 01/16/2013 Overview (06/11/2025): Mild numbness Adrenal adenoma 05/12/2012 Rectocele, female 03/02/2012 Hemorrhoid 01/27/2012 Metabolic dysfunction-associ ated steatotic liver disease (MASLD) 08/24/2011 History of diverticulitis 06/22/2011 Overview (10/17/2024): Patient describes 3 episodes, last on treated at [facility] on 04/2012 Assessment & Plan [...] B12 tablets is available. Palpitations 05/06/2018 11/30/2023 High cholesterol 06/22/2011 06/27/2025 Encounters Date Type Department Care Team Description 06/28/2025 9:00 AM EDT Office Visit [facility] [address] [place] [phone] Xuan Mckeon MD Varicose veins of both lower extremities, unspecified [...] pain; Encounter for screening for respiratory tuberculosis 06/28/2025 Travel 06/27/[address] [address] Xuan Mckeon MD chart prep 06/24/[address] [address] Yariel Schmid, Leelee Primary hypertension 06/14/2025 Orders Only [address] [address] Xuan Mckeon MD Primary hypertension (Primary Dx); Type 2 diabetes mellitus without complication, without long-term current use of insulin (HCC) 06/13/2025 10:30 AM EDT Telemedicine [address] [address] Yariel Schmid, Leelee Primary hypertension (Primary Dx); Type 2 diabetes mellitus without complication, without long-term current use of insulin ([facility]) 06/11/2025 1:00 PM EDT Office Visit [facility] [address] [place] [phone] Willow Wilson MD Allergic reaction, sequela (Primary Dx); Diabetic polyneuropathy associated with type 2 diabetes mellitus (HCC); Bronchitis; Fluid level behind tympanic membrane of right ear 06/11/2025 Travel 05/30/2025 Travel 05/28/[address] [address] Xuan Mckeon MD ER Follow-up; Medication Question 05/28/2025 Refill [facility] [address] [place], [place] [phone] Xuan Mckeon MD 05/23/2025 Orders Only GENERIC EXTERNAL DATA DEPARTMENT Provider, Generic External Data 05/22/[address] [address] Xuan Mckeon MD Lab Orders 05/15/2025 10:30 AM EDT Office Visit [address] [address] Xuan Mckeon MD Type 2 diabetes mellitus without complication, without long-term current use of insulin ([facility]) (Primary Dx); Primary hypertension; Dyslipidemia; Obstructive sleep apnea syndrome; TIA (transient ischemic attack); Allergic reaction, sequela; Shortness of breath; Chronic urticaria 05/15/2025 Travel 05/14/2025 Telephone [facility] [address] [place] [address] Xuan Mckeon MD chart prep 05/09/2025 Orders Only [facility] External Provider, [facility] 05/01/2025 Refill [facility] [address] [place] [address] Xuan Mckeon MD from Last 3 Months Immunizations Immunization Administration [...] Mass Index 31.37 06/28/2025 9:14 AM EDT Plan of Treatment Upcoming Encounters Date Type Department Care Team (Late st Contact Info) Description 08/09/2025 10:30 AM EST Telemedicine [facility] [address] [place] [address] Yariel Schmid, PharmD [address], [place] [phone] Health Maintenance Due Date Last Done Comments [...] 01/11/2025 01/12/2024, 01/03/2024 Eye Exam 02/23/2025 02/23/2023, 10/2015, 01/31/2015, Additional history exists COVID-19 Vaccine ( [...] 05/15/2025, 05/15/20 25 SDOH Screening 05/15/2026 05/15/2025 Mammogram 2026 2024, 11/05, 05/19/2019, Additional history exists Tobacco Screening 06/28/2026 06/28/2025 Colorectal Cancer Screening 01/11/2027 FIT DNA/Cologuard 01/11/2027 [...] 9:14 AM EDT) No Yariel Schmid, Leelee Procedures Procedure Name Priority Date/Time Associated Diagnosis Comments BASIC METABOLIC PANEL Routine 05/23/2025 8:42 AM EDT URINALYSIS, COMPLETE Routine 05/23/2025 8:42 AM EDT T-SPOT(R).TB Routine 05/23/2025 8:42 AM EDT Screening for tuberculosis POCT GLYCOSYLATED HEMOGLOBIN (HGB A1C) Routine 05/15/2025 10:49 AM EDT Type 2 diabetes mellitus without complication, without long-term current use of insulin ([facility]) POCT GLUCOSE Routine 05/15/2025 10:47 AM [...] Results * T-SPOT??.TB (05/23/2025 8:42 AM EDT) T Spot TB Negative Negative [facility] Comment:A negative test resu lt [...] as aquantitative test. TS PANEL A 0 [facility] TS PANEL B 0 [facility] Negative Control Passed [facility] Positive Control Passed [facility] Comment:For additional infor nina, please refer tohttp://education.Pretty Simple/faq/STW127(This link is being provided for informational/educational purposes only.)THIS TEST WAS PERFORMED AT:[employer] [id number] [place] [phone] ZAPATA MD,PHD 05/23/2025 8:42 AM EDT 05/23/2025 11:14 AM EDT us Xuan Mckeon MD LAB BLOOD ORDERABLES Final Resul t [facility] [address] [place] [phone] * (ABNORMAL) Urinalysis Complete (05/23/2025 8:42 AM EDT) Color Urine Yellow [facility] Appearance Urine Cloudy [facility] PH 6.0 5.0 - 9.0 [facility] Glucose Urine UA Negative Negative mg/dL [facility] Urine Blood Negative Negative [facility] Specific Union - Urine 1.020 1.005 - 1.025 [facility] Urine Protein Negative Neg-Trace mg/dL [facility] Urine Ketones Trace Negative mg/dL [facility] Nitrite Urine Negative Negative [facility] Leukocyte Esterase Urine Small (1+)(A) Negative [facility] RBC Urine 0-2 0 - 2 /HPF [facility] Urine WBC 0-5 0 - 5 /HPF [facility] Urine Squamous Epithelial Cell 3-5 0 - 2 /HPF [facility] Urine Bacteria 2+ None Seen [facility] Hyaline Casts, Urine 0-2 0 - 2 /LPF [facility] 05/23/2025 8:42 AM EDT 05/23/2025 11:14 AM EDT us Generic External Data Provider LAB URINE ORDERAB LES Final Result Performing Organization Address City/State/[facility] Co de Phone Number [facility] [address] [place] [phone] * (ABNORMAL) Basic Metabolic Panel (05/23/2025 8:42 AM EDT) Sodium 134(L) 135 - 145 mmol/L [facility] Potassium 4.2 3.3 - 5.1 mmol/L [facility] Chloride 98 96 - 108 mmol/L [facility] Carbon Dioxide 28 22 - 29 mmol/L [facility] Anion Gap 12 12 - 20 [facility] Urea Nitrogen (BUN) 13 9 - 16 mg/dL [facility] Creatinine, Serum 0.79 0.5 - 1.4 mg/dL [facility] Estimated Glomerular Filt Rate >60 [facility] Comment:Chronic Kidney Disea se: Estimated GFR < 60 mL/min/1.34f1Nruunw Kidney Disease: Estimated GFR < 15 mL/min/1.73m2 Glucose 194(H) 60 - 115 mg/dL [facility] Calcium 9.5 8.4 - 10.2 mg/dL [facility] 05/23/2025 8:42 AM EDT 05/23/2025 11:14 AM EDT Generic External Data Provider LAB BLOOD ORDERAB LES Final Result [facility] [address] [place] [phone] * (ABNORMAL) POCT glycosylated hemoglobin (Hgb A1c) (05/15/2025 10:49 AM EDT) Hemoglobin A1C 6.4(A) 4.0 - 5.7 % [employer] Lot # [id number] Lot# Expiration Date , Blood Capillary blood specimen / Unknown 05/15/2025 10:49 AM EDT Xuna Mckeon MD POINT OF CARE TEST ENTER/EDIT OR DERABLES Final Result * POCT glucose manually resulted (05/15/2025 10:47 AM EDT) Glucose Blood, POC 154 60 - 200 mg/dL [employer] Lot # [id number] Lot# Expiration Date [id number] Blood Capillary blood specimen / Unknown 05/15/2025 10:47 AM EDT Xuan Mckeon MD POINT OF CARE TEST ENTER/EDIT OR DERABLES Final Result * Influenza A B2 ID NOW ([place]lea) (05/09/2025 3:07 AM EDT) IDNOW SERIAL# [id number] [facility] Influenza A Negative Negative [facility] Influenza B2 Negative Negative [facility] Influenza A B2 Note See Note [facility] Comment:The Olea ID NOW In [...] LAB MICROBIOLOGY - GENERAL ORDERABLES Final Result [facility] [address] [place] [phone] * COVID-19 ID NOW ([employer]) (05/09/2025 3:07 AM EDT) IDNOW SERIAL# [id number] [facility] COVID-19 TEST Negative Negative [facility] COVID-19 NOTE See Note [facility] Comment: Results are for the identification of SARS-CoV2 RNA. TheSARS-CoV2 RNA is generally detectable in respiratory samplesduring the acute phase of infection. Positive results areindicative of the presence of SARS-CoV-2 RNA; clinicalcorrelation with patient history and other diagnosticinformation is necessary to determine patient infectionstatus. Positive results do not rule out bacterial infectionor co- infection with other viruses.Testing facilities within the [facility] and [facility] are required to report all positive [...] use by authorized laboratories.Testing performed on the Olea ID NOW utilizing NAAT. 05/09/2025 3:07 AM EDT 05/09/2025 3:12 AM EDT us Generic External Data Provider LAB MOLECULAR SHENA GNOSTICS ORDERABLES Final Result [facility] [address] [place], [place] [phone] * XR Chest 1 View (05/09/2025 1:13 AM EDT) Anatomical Region Laterality Modality Chest Radiographic Tracie ging 05/09/2025 1:13 AM EDT Narrative 05/09/2025 1:15 AM EDT [place] [address] XRay Report Signed Patient: Che Person MR #: [id number] : 1950 Acct:[id number] Age/Sex: 74 / F ADM Date: 05/09/25 Loc: .ED Attending Dr: Ordering Physician: Generic ED Physician Date of Service: 05/09/25 Procedure(s): XR chest 1V Accession Number(s): [id number] cc: Generic ED Physician; Xuan Mckeon MD [...] in OV> 05/09/25113 DD/ 2 TD/TT: 05/09/25112 [employer]ributor [employer] Material: Procedure Note Donotuseinterpreter, Image - 05/09/[address] [address] XRay Report Signed Patient: Greta PersonR #: [id number] : [id number]:[id number] Age/Sex: 74 / FADM Date: 05/09/25 Loc: HO.ED Attending Dr: Ordering Physician: Generic ED Physician Date of Service: 05/09/25 Procedure(s): XR chest 1V Accession Number(s): [id number] cc: Generic ED Physician; Xuan Mckeon MD [...] in OV> 05/09/25113 DD/ 2 TD/TT: 05/09/25112 Distributor Advertising Material: [facility] External Provider IMG XR PROCEDURES Edited Result - Final * (ABNORMAL) Lipid Panel with Reflex to Direct LDL (11/08/2024 9:12 AM EST) Triglycerides 229(H) <150 mg/dL [facility] Comment:Desirable Triglyceri de: less than 150 mg/dLBorderline High Triglyceride 150-199 mg/dLHigh Triglyceride: 200-499 mg/dLVery High Triglyceride: greater than or equal to 5OO mg/dL Cholesterol 166 <200 mg/dL [facility] Comment:Desirable Cholestero l: less than 200 mg/dLBorderline High Cholesterol: 200-239 mg/dLHigh Cholesterol: greater than 239 mg/dL LDL Cholesterol Calculated 83 <100 mg/dL [facility] Comment:Desirable LDL: less than 100 mg/dLNear Optimal/Above Optimal LDL: 110- 129 mg/dLBorderline High LDL: 130-159 mg/dLHigh LDL: 160-189 mg/dLVery High LDL: greater than or equal to 190 mg/dL HDL Cholesterol 38(L) >40 mg/dL [facility] Comment:Desirable HDL: great er than 40 mg/dL Note: This HDL assay may give artificially low results in patients with liver disease. Blood 11/08/2024 9:12 AM EST 11/08/2024 11:25 AM EST us Xuan Mckeon MD LAB BLOOD ORDERABLES Final Resul t Performing Organization Address [facility] de Phone Number [facility] [address] [place] [phone] * Albumin, Random Urine W/Creatinine (11/08/2024 9:12 AM EST) Creatinine, Urine 161.01 mg/dL [facility] Microalbumin Urine 6.0 mg/L [facility] Microalbum Creatinine Ratio Ur 3.7 <30 ug/mg cr [facility] Comment:Albumin/Creatinine R atio Reference Ranges: Normal: < 30 ug/mg creatinine Microalbuminuria: 30 - 300 ug/mg creatinineClinical Albuminuria: > 300 ug/mg creatinine Urine 11/08/2024 9:12 AM EST 11/08/2024 11:25 AM EST us Xuan Mckeon MD LAB URINE ORDERABLES Final Resul t Performing Organization Address [facility] Co de Phone Number [facility] [address] [place] [phone] * BI Mammogram Screening Tomosynthesis Bilateral (2024 9:15 AM EDT) Anatomical Region Laterality Modality Breast Bilateral Mammography 2024 9:15 AM EDT Narrative 06/15/2024 7:13 PM EDT [facility] [address] [place] [address] Mammography Report Signed Patient: Che Person MR #: [id number] : 1950 Acct:[id number] Age/Sex: 74 / F ADM Date: 06/06/24 Loc: [facility] Attending Dr: Xuan Mckeon MD Ordering Physician: Xuan Mckeon MD Results: 1Negative Date of Service: 06/06/24 Follow Up: 1 Year From Orig inal Mammogram Procedure(s): MM tomosynthesis screening BI Accession Number(s): [id number] cc: Xuan Mckeon MD EXAMINATION: MM SCREENING [...] in OV> 06/15/241909 DD/ 4 TD/TT: 06/06/24919 Distributor Advertising Material: Procedure Note Donotuseinterpreter, Image - 06/15/2024 [facility] [address] [place] [address] Dr. [place], [place] [address] Mammography Report Signed Patient: Alexis Person #: [id number] : 1950cct:[id number] Age/Sex: 74 / FADM Date: 06/06/24 Loc: STEFFANIE Attending Dr: Xuan Mckeon MD Ordering Physician: Xuan Mckeon MDResults: 1Negative Date of Service: 06/06/24Follow Up: 1 Year From Orig inal Mammogram Procedure(s): MM tomosynthesis screening BI Accession Number(s): [id number] cc: Xuan Mckeon MD EXAMINATION: MM SCREENING [...] in OV> 06/15/241909 DD/ 4 TD/TT: 06/06/24919 Distributor Advertising Material: Xuan Mckeon MD [facility] BI PROCEDURES Edited Result - Final * [...] a test for HCV RNA (test code 89908) is suggested. For additional information please refer to http://education.Pretty Simple/faq/TRR34l1 (This link is being provided for informational/ educational purposes only.) 10/23/2020 8:55 AM EST us Xuan Mckeon MD HISTORICAL/NON ORDERABLE LABS Fi nal Result [facility] [address] from Last 3 Months or Most Recently Relevant to Health Maintenance Insurance [facility] [employer] OPTIONS (O D-SNP) [place] [id number] [facility] Care Teams Call Center Operations Manager Relationship Specialty Start Date End Date Xuan Mckeon MD [address] [place] [phone] PCP - General Family Medicine 09/20/20 Yariel Schmid, CristóbalD [address] [place] [phone] Pharmacist Internal Medicine 11/23/22
--- OUTSIDE RECORDS SUMMARY | 2025-06-28 11:50 | XMS_ITS | Encounter Summary ---
Author Organization [employer] Address 75 [facility] 7t [place] [address] Care Team Providers Care Shuttle Driver Name Role Phone Xuan Mckeon MD Primary Care Provider [phone] Yariel Schmid PharmD Unavailable [phone] Reason for Visit * Reason Comments Med Refill Encounter Details Date Type Department Care Team ([facility] st Contact Info) Description 02/23/2025 Refill [facility] 230 [place], [place] [phone] Xuan Mckeon MD 230 [place], [place] [phone] Other specified anxiety disorders Social History Tobacco [...] Info) Description 08/09/2025 10:30 AM EST Telemedicine [facility] [address] [place] [address] Yariel Schmid, PharmD [address] [place] [address] documented as of this encounter Goals Goal Patient Goal Type Associated Problems Recent Progress Patient-Stated? Author Blood Pressure < 140/90 Blood Pressure 130/60( 025 9:14 AM EDT) No Yariel Schmid, CristóbalD documented as of this encounter Visit Diagnoses Diagnosis Other specified anxiety disorders documented in this encounter Additional Health Concerns Assessment Noted Time PHQ-9 Depression Total Score: 11 024 10:30 AM EDT documented as of this encounter Care Teams Shuttle Driver Relationship Specialty Start Date End Date Xuan Mckeon MD [address] [place] [address] PCP - General Family Medicine 09/20/20 Yariel Schmid, PharmD [address] [place] [address] Pharmacist Internal Medicine 11/23/22 documented as of this encounter
--- OUTSIDE RECORDS SUMMARY | 2025-06-28 11:50 | XMS_ITS | Encounter Summary ---
Author Organization [employer] Address [address] [facility] [address] 7t [place] [address] Care Team Providers Care Recreational Facilities Motel Manager Name Role Phone Xuan Mckeon MD Primary Care Provider [phone] Yariel Schmid PharmD Unavailable [phone] Encounter Details Date Type Department Care Team ([facility] st Contact Info) Description 10/22/2023 Orders Only [facility] [address] [place], [place] [phone] Xuan Mckeon MD 230 [place], [place] [phone] Social History Tobacco Use Types Packs/Day Years [...] Info) Description 08/09/2025 10:30 AM EST Telemedicine [facility] [address] [place] [address] Yariel Schmid PharmD 230 [place] [address] documented as of this encounter Goals Goal [...] documented as of this encounter Care Teams Recreational Facilities Motel Manager Relationship Specialty Start Date End Date Xuan Mckeon MD [address] [place] [address] PCP - General Family Medicine 09/20/20 Yariel Schmid, CristóbalD [address] [place] [address] Pharmacist Internal Medicine 11/23/22 documented as of this encounter
--- OUTSIDE RECORDS SUMMARY | 2025-06-28 11:50 | XMS_ITS | Encounter Summary ---
Author Organization [employer] Address 75 [facility] 7t [place] [address] Care Team Providers Care Gambling Broker Name Role Phone Xuan Mckeon MD Primary Care Provider [phone] Yariel Schmid PharmD Unavailable [phone] Reason for Visit * Reason Comments Med Refill Encounter Details Date Type Department Care Team ([facility] Contact Info) Description 10/06/2022 Refill [facility] [address] [place], [place] [phone] Ofelia Akhtar ANP 230 [place], [place] [phone] Other specified anxiety disorders Social History Tobacco [...] Upcoming Encounters Date Type Department Care Team ([facility] Contact Info) Description 08/09/2025 10:30 AM EST Telemedicine [facility] 230 [place], [place] [phone] Yariel Schmid, PharmD 230 [place] [address] documented as of this encounter Visit Diagnoses Diagnosis Other specified anxiety disorders documented in this encounter Care Teams Gambling Broker Relationship Specialty Start Date End Date Xuan Mckeon MD [address] [place] [address] PCP - General Family Medicine 09/20/20 Yariel Schmid, Leelee [address] [place] [address] Pharmacist Internal Medicine 11/23/22 documented as of this encounter
--- OUTSIDE RECORDS SUMMARY | 2025-06-28 11:51 | XMS_ITS | Encounter Summary ---
Author Organization [employer] Address [address] [facility] [address] 7t [place] [address] Care Team Providers Care Event Planner Name Role Phone Xuan Mckeon MD Primary Care Provider [phone] Yariel Schmid PharmD Unavailable [phone] Reason for Visit * Reason Comments Med Refill Encounter Details Date Type Department Care Team ([facility] st Contact Info) Description 03/06/2024 Refill [facility] 230 [place], [place] [phone] Ofelia Akhtar, ANP 230 [place], [place] [phone] Other specified anxiety disorders Social History Tobacco [...] EST Telemedicine [facility] [address] [place] [address] Yariel Schmid PharmD 230 [place] [address] documented as of this encounter Goals Goal [...] documented as of this encounter Care Teams Event Planner Relationship Specialty Start Date End Date Xuan Mckeon MD [address] [place] [address] PCP - General Family Medicine 09/20/20 Yariel Schmid PharmD [address] [place] [address] [phone] Pharmacist Internal Medicine 11/23/22 documented as of this encounter
--- OUTSIDE RECORDS SUMMARY | 2025-06-28 11:51 | XMS_ITS | Encounter Summary ---
Author Organization [employer] [facility] Address 75 [facility] 7t [place] [address] Care Team Providers Care Night Supervisor Name Role Phone Xuan Mckeon MD Primary Care Provider [phone] Yariel Schmid PharmD Unavailable [phone] Reason for Referral * Consultation (Routine) - Authorized Specialty Diagnoses / Procedures Referred By Contac t Referred To Contact Pharmacy Diagnoses Primary hypertension Type 2 diabetes mellitus without complication, without long-term current use of insulin (HCC) Xuan Mckeon MD [address] [place] [address] Phone: tel: fax: Referral ID Status Reason Start Date Expiration Date Visits Requested Visits Authorized [id number] Authorized Consult and Treat 06/14/2025 06/14/2026 6 6 Encounter Details Date Type Department Care Team (Late st Contact Info) Description 06/14/2025 Orders Only [facility] [address] [place] [address] Xuan Mckeon MD [address] [place] [address] [phone] Primary hypertension (Primary Dx); Type 2 diabetes mellitus without complication, without long-term current use of insulin (HCC) Social History Tobacco Use Types Packs/Day Years [...] 08/09/2025 10:30 AM EST Telemedicine [facility] 230 [place] [address] Yariel Schmid, PharmD 230 [place] [address] Scheduled Referrals Name Type Priority Associated Diagnoses Orde r Schedule Referral to Pharmacy CDTM Outpatient Referral Routine Primary hypertension Type 2 diabetes mellitus without complication, without long-term current use of insulin (HCC) Ordered: 06/14/2025 documented as of this encounter Goals Goal Patient Goal Type Associated Problems Recent Progress Patient-Stated? Author Blood Pressure < 140/90 Blood Pressure 130/60( 025 9:14 AM EDT) No Yariel Schmid, PharmD documented as of this encounter Visit Diagnoses Diagnosis Primary hypertension- Primary Unspecified essential hypertension Type 2 diabetes mellitus without complication, without long-term current use of insulin (HCC) documented in this encounter Additional Health Concerns Assessment Noted Time PHQ-9 Depression Total Score: 0 05/15/20 25 10:49 AM EDT documented as of this encounter Care Teams Night Supervisor Relationship Specialty Start Date End Date Xuan Mckeon MD 230 [place] [address] PCP - General Family Medicine 09/20/20 Yariel Schmid, PharmD 230 [place] [address] Pharmacist Internal Medicine 11/23/22 documented as of this encounter
--- OUTSIDE RECORDS SUMMARY | 2025-06-28 11:51 | XMS_ITS | Encounter Summary ---
Author Organization [employer] Address [address] 7t [place] [address] Care Team Providers Care Cardiac Cath Tech Name Role Phone Xuan Mckeon MD Primary Care Provider [phone] Yariel Schmid PharmD Unavailable [phone] Encounter Details Date Type Department Care Team ([facility] st Contact Info) Description 12/24/2023 Orders Only [facility] 230 [place], [place] [phone] Xuan Mckeon MD 230 [place], [place] [phone] Dermatitis (Primary Dx) Social History Tobacco Use [...] AM EST Telemedicine [facility] 230 [place] [address] Yariel Schmid, Leelee [address] [place] [address] documented as of this encounter Goals Goal [...] documented as of this encounter Care Teams Cardiac Cath Tech Relationship Specialty Start Date End Date Xuan Mckeon MD [address] [place] [address] PCP - General Family Medicine 09/20/20 Yariel Schmid, Leelee [address] [place] [address] [phone] Pharmacist Internal Medicine 11/23/22 documented as of this encounter
--- OUTSIDE RECORDS SUMMARY | 2025-06-28 11:51 | XMS_ITS | Encounter Summary ---
Author Organization [employer] Address 75 [facility] 7t [place] [address] Care Team Providers Care Truck Driving Name Role Phone Xuan Mckeon MD Primary Care Provider [phone] Yariel Schmid PharmD Unavailable [phone] Reason for Visit * Reason Comments Med Refill Encounter Details Date Type Department Care Team ([facility] st Contact Info) Description 06/24/2025 Refill [facility] 230 [place], [place] [phone] Yariel Schmid, PharmD 230 [place], [place] [phone] Primary hypertension Social History Tobacco Use Types Packs/Day Years [...] encounter Miscellaneous Notes * Telephone Encounter - Yariel Schmid PharmD - 06/25/2025 12:56 PM EDT Pharmacist will renew Toprol XL 100 mg po daily. PCP FU scheduled 06/28/2025, CDTM FU scheduled 08/09/2025. documented in this encounter Plan of Treatment Upcoming Encounters Date Type Department Care Team (Late st Contact Info) Description 08/09/2025 10:30 AM EST Telemedicine [facility] 230 [place] [address] Yariel Schmid PharmD 230 [place] [address] documented as of this encounter Goals Goal Patient Goal Type Associated Problems Recent Progress Patient-Stated? Author Blood Pressure < 140/90 Blood Pressure 130/60( 025 9:14 AM EDT) No Yariel Schmid PharmD documented as of this encounter Visit Diagnoses Diagnosis Primary hypertension Unspecified essential hypertension documented in this encounter Additional Health Concerns Assessment Noted Time PHQ-9 Depression Total Score: 0 05/15/20 25 10:49 AM EDT documented as of this encounter Care Teams Truck Driving Relationship Specialty Start Date End Date Xuan Mckeon MD 230 [place] [address] PCP - General Family Medicine 09/20/20 Yariel Schmid, CristóbalD 230 [place] [address] Pharmacist Internal Medicine 11/23/22 documented as of this encounter
--- OUTSIDE RECORDS SUMMARY | 2025-06-28 11:51 | XMS_ITS | Encounter Summary ---
Author Organization [employer] Address [address] [facility] [address] 7t [place] [address] Care Team Providers Care Assembler Convertible Top Name Role Phone Xuan Mckeon MD Primary Care Provider Yariel Schmid PharmD Unavailable [phone] Encounter Details Date Type Department Care Team ([facility] st Contact Info) Description 12/06/2023 Orders Only [facility] 230 [place], [place] [phone] Xuan Mckeon MD 230 [place], [place] [phone] Social History Tobacco Use Types Packs/Day Years [...] Info) Description 08/09/2025 10:30 AM EST Telemedicine [facility] 230 [place] [address] Yariel Schmid PharmD 230 [place] [address] documented as of this encounter Goals Goal [...] documented as of this encounter Care Teams Assembler Convertible Top Relationship Specialty Start Date End Date Xuan Mckeon MD [address] [place] [address] PCP - General Family Medicine 09/20/20 Yariel Schmid, CristóbalD [address] [place] [address] Pharmacist Internal Medicine 11/23/22 documented as of this encounter
--- OUTSIDE RECORDS SUMMARY | 2025-06-28 11:51 | XMS_ITS | Encounter Summary ---
Author Organization [employer] Address [address] [facility] [address] 7t [place] [address] Care Team Providers Care Turn Sewer Name Role Phone Xuan Mckeon MD Primary Care Provider [phone] Yariel Schmid PharmD Unavailable [phone] Reason for Visit * Reason Onset Date Comments chart prep 06/27/2025 Encounter Details Date Type Department Care Team ([facility] st Contact Info) Description 06/27/2025 Telephone [facility] 230 [place] [address] Xuan Mckeon MD 230 [place] [address] chart prep Social History Tobacco Use Types Packs/Day Years [...] encounter Miscellaneous Notes * Telephone Encounter - Che Cespedes [place] - 06/27/2025 10:14 AM EDT Chart Prep Labs: done Images: done Referrals: appointment pending Pharmacy appointment 08/09/25 @ 10:30 Pulmonary F/T appointment 08/17/25 @ 3:00 Vaccines due: Covid, Flu, Tdap, Hep B, Hep A, RSV, and Zoster Screenings: eye exam and foot exam Overdue care gaps: Not applicable documented in this encounter Plan of Treatment Upcoming Encounters Date Type Department Care Team (Late st Contact Info) Description 08/09/2025 10:30 AM EST Telemedicine [facility] 230 [place] [address] Yariel Schmid PharmD 230 [place] [address] documented as of this encounter Goals Goal [...] documented as of this encounter Care Teams Turn Sewer Relationship Specialty Start Date End Date Xuan Mckeon MD 230 [place] [address] PCP - General Family Medicine 09/20/20 Yariel Schmid, CristóbalD 230 [place] [address] Pharmacist Internal Medicine 11/23/22 documented as of this encounter
--- OUTSIDE RECORDS SUMMARY | 2025-06-28 11:51 | XMS_ITS | Encounter Summary ---
Author Organization [employer] Address 75 [facility] 7t [place] [address] Care Team Providers Care Staff Mine Warfare Officer Name Role Phone Xuan Mckeon MD Primary Care Provider Yariel Schmid PharmD Unavailable [phone] Encounter Details Date Type Department Care Team (Latest Contact Info) Description 06/28/2025 Travel Social History Tobacco Use Types Packs/Day [...] Telemedicine [facility] 230 [place] [address] Yariel Schmid, Leelee 230 [place] [address] documented as of this encounter Goals Goal [...] documented as of this encounter Care Teams Staff Mine Warfare Officer Relationship Specialty Start Date End Date Xuan Mckeon MD [address] [place] [address] PCP - General Family Medicine 09/20/20 Yariel Schmid, PharmD [address] [place] [address] [phone] Pharmacist Internal Medicine 11/23/22 documented as of this encounter
[2025-06-28 12:02] LABS: Alanine Aminotransferase 20 U/L (0-31); Albumin Level 4.7 g/dL (3.5-5.0); Alkaline Phosphatase 53 U/L (39-117); Anion Gap 10 (12-20); Aspartate Amino Transferase 26 U/L (5-31); Blood Urea Nitrogen 17 mg/dL (9-16); Calcium 9.4 mg/dL (8.4-10.2); Carbon Dioxide 28 mmol/L (22-29); Chloride 101 mmol/L (96-108); Cholesterol 202 mg/dL (<200); Estimated Glomerular Filt Rate > 60; HDL Cholesterol 39 mg/dL (>40); Potassium 4.1 mmol/L (3.3-5.1); Sodium 135 mmol/L (135-145); Total Protein 7.1 g/dL (6.5-8.0); Triglycerides 375 mg/dL (<150)
[2025-06-28 13:49] LABS: Reflex LDLD? No
[2025-07-01 04:19] LABS: TS Negative Control Passed; TS Panel A 0; TS Panel B 1; TS Positive Control Passed; TSpotTB Negative (Negative)
== END 2025-06-28 10:05 | disposition home or self-care (01) ==
LOC: HO.HHCL 10:04
PROVIDERS: Family Medicine; PCP Family Medicine; Visit Provider Family Medicine
DX: Z11.1 Encounter for screening for respiratory tuberculosis (principal); I10 Essential (primary) hypertension; E11.9 Type 2 diabetes mellitus without complications; E78.5 Hyperlipidemia, unspecified
CPT/HCPCS: 36415; 80053; 80061; 83036; 86481

== ENCOUNTER 2025-08-17 14:21 | Outpatient (REF) | payer OTHER, SELFPAY ==
--- NOTE | 2025-08-17 | PFT_ITS ---
Spirometry [] Lung Volumes [] Diffusion Capacity [] Methacholine Challenge [] Flow Volume Loops [] MVV [] MIP/MEP(Max inspiratory pressure/Max expiratory pressure) [] 6 Minute Walk Test [] ABG [] Interpretation [] MTDD
[2025-08-17 15:22] VITALS: PULSE 85
--- OUTSIDE RECORDS SUMMARY | 2025-08-17 19:34 | XMS_ITS | Encounter Summary ---
Author Organization [employer] Address 75 [facility] 7t [place] [address] Care Team Providers Care Feed Research Technician Name Role Phone Xuan Mckeon MD Primary Care Provider [phone] Yariel Schmid PharmD Unavailable [phone] Reason for Visit * Reason Comments Med Refill Encounter Details Date Type Department Care Team ([facility] st Contact Info) Description 02/23/2025 Refill [facility] 230 [place], [place] [phone] Xuan Mckeon MD 230 [place], [place] [phone] Other specified anxiety disorders Social History Tobacco [...] Care Team (Late st Contact Info) Description 11/02/2025 10:30 AM EST Telemedicine [facility] [address] [place] [address] Yariel Schmid PharmD [address] [place] [address] documented as of this encounter Goals Goal Patient Goal Type Associated Problems Recent Progress Patient-Stated? Author Blood Pressure < 140/90 Blood Pressure 161/79( 025 11:01 AM EST) No Yariel Schmid, Leelee documented as of this encounter Visit Diagnoses Diagnosis Other specified anxiety disorders documented in this encounter Additional Health Concerns Assessment Noted Time PHQ-9 Depression Total Score: 11 024 10:30 AM EDT documented as of this encounter Care Teams Feed Research Technician Relationship Specialty Start Date End Date Xuan Mckeon MD [address] [place] [address] PCP - General Family Medicine 09/20/20 Yariel Schmid, PharmD [address] [place] [address] Pharmacist Internal Medicine 11/23/22 documented as of this encounter
--- OUTSIDE RECORDS SUMMARY | 2025-08-17 19:34 | XMS_ITS | Encounter Summary ---
Author Organization [employer] Address [address] [facility] [address] 7t [place] [address] Care Team Providers Care Windows Server Specialist Name Role Phone Xuan Mckeon MD Primary Care Provider [phone] Yariel Schmid PharmD Unavailable [phone] Encounter Details Date Type Department Care Team ([facility] st Contact Info) Description 10/22/2023 Orders Only [facility] 230 [place], [place] [phone] Xuan Mckeon MD 230 [place], [place] [phone] Social History Tobacco Use Types Packs/Day Years [...] Info) Description 11/02/2025 10:30 AM EST Telemedicine [facility] 230 [place] [address] Yariel Schmid PharmD 230 [place] [address] documented as of this encounter Goals Goal Patient Goal Type Associated Problems Recent Progress Patient-Stated? Author Blood Pressure < 140/90 Blood Pressure 161/79( 025 11:01 AM EST) No Yariel Schmid PharmD documented as of this encounter Visit Diagnoses Not on filedocumented in this encounter Additional Health Concerns Assessment Noted Time PHQ-9 Depression Total Score: 4 12/18/19 23 10:48 AM EDT documented as of this encounter Care Teams Windows Server Specialist Relationship Specialty Start Date End Date Xuan Mckeon MD [address] [place] [address] PCP - General Family Medicine 09/20/20 Yariel Schmid, CristóbalD [address] [place] [address] Pharmacist Internal Medicine 11/23/22 documented as of this encounter
--- OUTSIDE RECORDS SUMMARY | 2025-08-17 19:34 | XMS_ITS | Encounter Summary ---
Author Organization [employer] Address 75 [facility] 7t [place] [address] Care Team Providers Care Supply Specialist Name Role Phone Xuan Mckeon MD Primary Care Provider [phone] Yariel Schmid PharmD Unavailable [phone] Reason for Visit * Reason Comments Med Refill Encounter Details Date Type Department Care Team ([facility] st Contact Info) Description 09/08/[address] [facility] 230 [place], [place] [phone] Xuan Mckeon MD 230 [place], [place] [phone] Other specified anxiety disorders Social History Tobacco [...] Info) Description 11/02/2025 10:[address] [facility] 230 [place] [address] Yariel Schmid PharmD 230 [place] [address] documented as of this encounter Goals Goal [...] documented as of this encounter Care Teams Supply Specialist Relationship Specialty Start Date End Date Xuan Mckeon MD [address] [place] [address] PCP - General Family Medicine 09/20/20 Yariel Schmid PharmD [address] [place] [address] Pharmacist Internal Medicine 11/23/22 documented as of this encounter
--- OUTSIDE RECORDS SUMMARY | 2025-08-17 19:34 | XMS_ITS | Encounter Summary ---
Author Organization [employer] Address 75 [facility] 7t [place] [address] Care Team Providers Care Crib Clerk Name Role Phone Xuan Mckeon MD Primary Care Provider [phone] Yariel Schmid PharmD Unavailable [phone] Reason for Visit * Reason Comments Med Refill Encounter Details Date Type Department Care Team ([facility] Contact Info) Description 10/06/2022 Refill [facility]S [address] [place], [place] [phone] Ofelia Akhtar ANP 230 [place], [place] [phone] Other specified anxiety disorders Social History Tobacco [...] Upcoming Encounters Date Type Department Care Team ([facility] Contact Info) Description 11/02/2025 10:30 AM EST Telemedicine [facility] 230 [place], [place] [phone] Yariel Schmid, PharmD 230 [place] [address] documented as of this encounter Visit Diagnoses Diagnosis Other specified anxiety disorders documented in this encounter Care Teams Crib Clerk Relationship Specialty Start Date End Date Xuan Mckeon MD [address] [place] [address] PCP - General Family Medicine 09/20/20 Yariel Schmid, Leelee [address] [place] [address] Pharmacist Internal Medicine 11/23/22 documented as of this encounter
--- OUTSIDE RECORDS SUMMARY | 2025-08-17 19:34 | XMS_ITS | Encounter Summary ---
Author Organization [employer] [facility] Address [address] [place] [address] 7t [place] [address] Care Team Providers Care Senior Litigation Paralegal Name Role Phone Xuan Mckeon MD Primary Care Provider [phone] Yariel Schmid PharmD Unavailable [phone] Reason for Visit * Reason Comments Med Refill Encounter Details Date Type Department Care Team (Late Contact Info) Description 04/07/2023 Refill [facility] [address] [place] [address] [phone] Xuan Mckeon MD [address] [place] [address] [phone] Vitamin B12 deficiency Social History Tobacco Use [...] Info) Description 11/02/2025 10:30 AM EST Telemedicine [facility] 230 [place], [place] [phone] Yariel Schmid, PharmD 230 [place], [place] [phone] documented as of this encounter Goals Goal Patient Goal Type Associated Problems Recent Progress Patient-Stated? Author Blood Pressure < 140/90 Blood Pressure 161/79( 025 11:01 AM EST) No Yariel Schmid, PharmD documented as of this encounter Visit Diagnoses Diagnosis Vitamin B12 deficiency Other B-complex deficiencies documented in this encounter Additional Health Concerns Assessment Noted Time PHQ-9 Depression Total Score: 4 12/18/19 23 10:48 AM EDT documented as of this encounter Care Teams Senior Litigation Paralegal Relationship Specialty Start Date End Date Xuan Mckeon MD 230 [place] [address] PCP - General Family Medicine 09/20/20 Yariel Schmid, PharmD [address] [place] [address] Pharmacist Internal Medicine 11/23/22 documented as of this encounter
--- OUTSIDE RECORDS SUMMARY | 2025-08-17 19:34 | XMS_ITS | Clinical Summary ---
Author Organization [facility] Address [address] [place] [id number] Care Team Providers Care Mold Release Worker Name Role Phone Unavailable Primary Care Provider [...] Depression Screening 09/06/2024 COVID-19 Vaccine ( - 2024- season) 2025 Influenza Vaccine (#1) 2025 5, [...]
--- OUTSIDE RECORDS SUMMARY | 2025-08-17 19:34 | XMS_ITS | Encounter Summary ---
Author Organization [employer] Address [address] 7t [place] [address] Care Team Providers Care Electrical Line Splicer Name Role Phone Xuan Mckeon MD Primary Care Provider [phone] Yariel Schmid PharmD Unavailable [phone] Encounter Details Date Type Department Care Team ([facility] st Contact Info) Description 09/20/2024 Orders Only [facility] [address] [place], [place] [phone] Xuan Mckeon MD [address] [place], [place] [phone] Left lower quadrant abdominal pain (Primary Dx); [...] Info) Description 11/02/2025 10:30 AM EST Telemedicine [facility] [address] [place] [address] Yariel Schmid, PharmD [address] [place] [address] documented as of this encounter Goals Goal [...] Sedimentation Rate 25(H) 0 - 20 MM/HR [facility] Comment:Patients with polycy themia and many hemoglobin abnormalitiesmay have depressed sed rates whereas patients with anemiamay have elevated sed rates. Blood Venous blood specimen / Unknown 09/21/2024 9:16 AM EST 09/21/2024 11:12 AM EST Xuan Mckeon MD LAB BLOOD ORDERABLES Final Resul t Performing Organization Address [facility] Co de Phone Number [facility] [address] [place] [address] [phone] * (ABNORMAL) C-reactive Protein (09/21/2024 9:16 AM EST) [facility] C Reactive Protein 0.96(H) < or = 0.50 mg/dL [facility] Blood Venous blood specimen / Unknown 09/21/2024 9:16 AM EST 09/21/2024 11:12 AM EST Xuan Mckeon MD LAB BLOOD ORDERABLES Final Resul t Performing Organization Address [facility] de Phone Number [facility] [address] [place] [phone] * (ABNORMAL) CBC auto differential (09/21/2024 9:16 AM EST) Pathologist [facility] White Blood Count 6.2 4.8 - 10.8 X10*3/uL [facility] Red Blood Count 3.99(L) 4.20 - 5.50 X10*6/uL [facility] Hemoglobin 12.4 12.0 - 16.0 g/dl [facility] Hematocrit 36.3(L) 37.0 - 47.0 % [facility] Mean Corpuscular Volume 91.0 80.0 - 98.0 fL [facility] Mean Corpuscular Hemoglobin 31.1 27.0 - 33.0 pg [facility] Mean Corpuscular HGB Conc 34.2 31.0 - 35.0 g/dl [facility] Red Cell Distribution Width 12.5 11.0 - 16.0 % [facility] Platelet Count 288 160 - 400 X10*3/uL [facility] Mean Platelet Volume 10.5 9.4 - 12.3 fL [facility] Neutrophils Percent Auto 70.5 45 - 73 % [facility] Imm Gran Pct Auto 0.3 0.0 - 0.4 % [facility] Lymphocytes Percent Auto 20.0 20 - 40 % [facility] Monocytes Percent Auto 7.1 2 - 11 % [facility] Eosinophils Percent Auto 1.6 0 - 4 % [facility] Basophils Percent Auto 0.5 0 - 2 % [facility] NRBC Pct Auto 0.0 0.0 - 0.2 /100WBC [facility] Neutrophils Absolute Auto 4.3 2.0 - 8.3 x10*3/uL [facility] Imm Gran Abs Auto 0.02 0.00 - 0.03 X10*3/uL [facility] Lymphocytes Absolute Auto 1.2 1.2 - 4.9 X10*3/uL [facility] Monocytes Absolute Auto 0.4 0.1 - 1.2 X10*3/uL [facility] Eosinophils Absolute Auto 0.1 0.0 - 0.4 X10*3/uL [facility] Basophils Absolute Auto 0.0 0.0 - 0.2 X10*3/uL [facility] NRBC Abs Auto 0.000 0.0 - 0.012 X10*3/uL [facility] Blood Venous blood specimen / Unknown 09/21/2024 9:16 AM EST 09/21/2024 11:12 AM EST us Xuan Mckeon MD LAB BLOOD ORDERABLES Final Resul t [facility] [address] [place] [phone] [phone] documented in this encounter Visit Diagnoses Diagnosis Left lower quadrant abdominal pain- Primary Diverticulitis Diverticulitis of colon (without mention of hemorrhage) documented in this encounter Additional Health Concerns Assessment Noted Time PHQ-9 Depression Total Score: 11 024 10:30 AM EDT documented as of this encounter Care Teams Electrical Line Splicer Relationship Specialty Start Date End Date Xuan Mckeon MD [address] [place] [address] PCP - General Family Medicine 09/20/20 Yariel Schmid, CristóbalD [address] [place] [address] Pharmacist Internal Medicine 11/23/22 documented as of this encounter
--- OUTSIDE RECORDS SUMMARY | 2025-08-17 19:34 | XMS_ITS | Encounter Summary ---
Author Organization [facility] Address [address] [facility] 7t [place] [address] Care Team Providers Care Destination Imagination Coordinator Name Role Phone Xuan Mckeon MD Primary Care Provider [phone] Yariel Schmid PharmD Unavailable [phone] Reason for Visit * Reason Comments Med Refill Encounter Details Date Type Department Care Team (Late Contact Info) Description 03/18/2023 Refill [facility] [address] [place], [place] [phone] Xuan Mckeon MD [address] [place], [place] [phone] Other specified anxiety disorders Social History Tobacco [...] Department Care Team (Late Contact Info) Description 11/02/2025 10:30 AM EST Telemedicine [facility] [address] [place], [place] [phone] Yariel Schmid, PharmD [address] [place], [place] [phone] documented as of this encounter Goals Goal [...] documented as of this encounter Care Teams Destination Imagination Coordinator Relationship Specialty Start Date End Date Xuan Mckeon MD [address] [place] [address] PCP - General Family Medicine 09/20/20 Yariel Schmid, PharmD [address] [place] [address] Pharmacist Internal Medicine 11/23/22 documented as of this encounter
--- OUTSIDE RECORDS SUMMARY | 2025-08-17 19:34 | XMS_ITS | Encounter Summary ---
Author Organization [employer] Address [address] [facility] 7t [place] [address] Care Team Providers Care Display Designer Outside Name Role Phone Xuan Mckeon MD Primary Care Provider [phone] Yariel Schmid PharmD Unavailable [phone] Encounter Details Date Type Department Care Team (Late st Contact Info) Description 09/23/2022 Orders Only [facility] MED [facility] PEDS [address] [place] [address] Shannon Rich LPN Social History Tobacco Use [...] Info) Description 11/02/2025 10:30 AM EST Telemedicine [facility] MEDICINE [address] [place] [address] Yariel Schmid, PharmD [address] [place] [address] documented as of this encounter Visit Diagnoses Not on filedocumented in this encounter Care Teams Display Designer Outside Relationship Specialty Start Date End Date Xuan Mckeon MD [address] [place] [address] PCP - General Family Medicine 09/20/20 Yariel Schmid, PharmD [address] [place] [address] Pharmacist Internal Medicine 11/23/22 documented as of this encounter
--- OUTSIDE RECORDS SUMMARY | 2025-08-17 19:34 | XMS_ITS | Encounter Summary ---
Author Organization [employer] [facility] Address [address] [facility] 7t [place] [address] Care Team Providers Care Refractory Grinder Operator Name Role Phone Xuan Mckeon MD Primary Care Provider [phone] Yariel Schmid PharmD Unavailable [phone] Encounter Details Date Type Department Care Team (Latest Contact Info) Description 01/23/2022 Abstract [facility] CONVERSIONS Dental, Provider, DDS Social History Tobacco [...] Info) Description 11/02/2025 10:30 AM EST Telemedicine [facility] MEDICINE [address] [place] [address] Yariel Schmid PharmD [address] [place] [address] documented as of this encounter Visit Diagnoses Not on filedocumented in this encounter Care Teams Refractory Grinder Operator Relationship Specialty Start Date End Date Xuan Mckeon MD [address] [place] [address] PCP - General Family Medicine 09/20/20 Yariel Schmid, CristóbalD [address] [place] [address] Pharmacist Internal Medicine 11/23/22 documented as of this encounter
--- OUTSIDE RECORDS SUMMARY | 2025-08-17 19:34 | XMS_ITS | Encounter Summary ---
Author Organization [employer] Address [address] [facility] 7t [place] [address] Care Team Providers Care Django Developer Name Role Phone Xuan Mckeon MD Primary Care Provider [phone] Yariel Schmid PharmD Unavailable [phone] Reason for Visit * Reason Comments Med Refill Encounter Details Date Type Department Care Team ([facility] st Contact Info) Description 10/05/2023 Refill [facility] [address] [place], [place] [phone] Xuan Mckeon MD [address] [place], [place] [phone] Vitamin B12 deficiency Social History Tobacco Use [...] Info) Description 11/02/2025 10:30 AM EST Telemedicine [facility] [address] [place] [address] Yariel Schmid, Leelee [address] [place] [address] documented as of this encounter Goals Goal [...] documented as of this encounter Care Teams Django Developer Relationship Specialty Start Date End Date Xuan Mckeon MD [address] [place] [address] PCP - General Family Medicine 09/20/20 Yariel Schmid, CristóbalD [address] [place] [address] Pharmacist Internal Medicine 11/23/22 documented as of this encounter
--- OUTSIDE RECORDS SUMMARY | 2025-08-17 19:34 | XMS_ITS | Encounter Summary ---
Author Organization [employer] Address [address] [facility] 7t [place] [address] Care Team Providers Care Manager Regulatory Name Role Phone Xuan Mckeon MD Primary Care Provider [phone] Yariel Schmid PharmD Unavailable [phone] Reason for Visit * Reason Comments Med Refill Encounter Details Date Type Department Care Team ([facility] st Contact Info) Description 08/17/2025 Refill [facility] MED[facility]INE [address] [place], [place] [phone] Xuan Mckeon MD [address] [place], [place] [phone] Other specified anxiety disorders Social History Tobacco [...] Info) Description 11/02/2025 10:30 AM EST Telemedicine [facility] MEDICINE [address] [place] [address] Yariel Schmid, CristóbalD [address] [place] [address] documented as of this encounter Goals Goal Patient Goal Type Associated Problems Recent Progress Patient-Stated? Author Blood Pressure < 140/90 Blood Pressure 161/79(2024 11:01 AM EST) No Yariel Schmid, PharmSydnee Help patients manage their type 2 diabetes Care Plan Help patients manage their type 2 diabetes No Shannon Gutierrez, PharmSydnee Weekly blood pressure task Care Plan Weekly blood pressure task No Shannon Gutierrez, PharmD Help patients manage their type 2 diabetes Care Plan Help patients manage their type 2 diabetes No Shannon Gutierrez, PharmD Patient has chronic kidney disease Care Plan Patient has chronic kidney disease No Shannon Gutierrez, PharmD Help patients manage their type 2 diabetes Care Plan Help patients manage their type 2 diabetes No Shannon Gutierrez, PharmD Patient has diabetic neuropathy Care Plan Patient has diabetic neuropathy No Shannon Gutierrez, PharmSydnee Weekly blood pressure task Care Plan Weekly blood pressure task No Shannon Gutierrez PharmD Weekly blood pressure task Care Plan Weekly blood pressure task No Shannon Gutierrez PharmD Patient has chronic kidney disease Care Plan Patient has chronic kidney disease No Shannon Gutierrez, PharmD Patient has chronic kidney disease Care Plan Patient has chronic kidney disease No Shannon Gutierrez, PharmD Patient has diabetic neuropathy Care Plan Patient has diabetic neuropathy No Shannon Gutierrez PharmD Patient has diabetic neuropathy Care Plan Patient has diabetic neuropathy No Shannon Gutierrez PharmD Weekly blood pressure task Care Plan Weekly blood pressure task No Yariel Schmid, PharmD Weekly blood pressure task Care Plan Weekly blood pressure task No Yariel Schmid PharmD Weekly blood pressure task Care Plan Weekly blood pressure task No Yariel Schmid, PharmD Patient has chronic kidney disease Care Plan Patient has chronic kidney disease No Yariel Schmid, PharmD Patient has chronic kidney disease Care Plan Patient has chronic kidney disease No Yariel Schmid PharmD Patient has chronic kidney disease Care Plan Patient has chronic kidney disease No Yariel Schmid, PharmD Patient has diabetic neuropathy Care Plan Patient has diabetic neuropathy No Yariel Schmid, PharmD Patient has diabetic neuropathy Care Plan Patient has diabetic neuropathy No Yariel Schmid, PharmD Patient has diabetic neuropathy Care Plan Patient has diabetic neuropathy No Yariel Schmid PharmD Weekly blood pressure task Care Plan Weekly blood pressure task No Molly Cates RN Weekly blood pressure task Care Plan Weekly blood pressure task No Molly Cates RN Weekly blood pressure task Care Plan Weekly blood pressure task No Molly Cates RN Patient has chronic kidney disease Care Plan Patient has chronic kidney disease No Molly Cates RN Patient has chronic kidney disease Care Plan Patient has chronic kidney disease No Molly Cates RN Patient has chronic kidney disease Care Plan Patient has chronic kidney disease No Molly Cates RN Patient has diabetic neuropathy Care Plan Patient has diabetic neuropathy No Molly Cates RN Patient has diabetic neuropathy Care Plan Patient has diabetic neuropathy No Molly Cates RN Patient has diabetic neuropathy Care Plan Patient has diabetic neuropathy No Molly Cates RN documented as of this encounter Visit Diagnoses Diagnosis Other specified anxiety disorders documented in this encounter Additional Health Concerns Active Problems Noted Date Diagnosed Date Help patients manage their type 2 diabetes 07/19 Weekly blood pressure task 07/19/2025 Help patients manage their type 2 diabetes 07/19 Patient has chronic kidney disease 07/19/2025 Help patients manage their type 2 diabetes 07/19 Patient has diabetic neuropathy 07/19/2025 Weekly blood pressure task 07/19/2025 Weekly blood pressure task 07/19/2025 Patient has chronic kidney disease 07/19/2025 Patient has chronic kidney disease 07/19/2025 Patient has diabetic neuropathy 07/19/2025 Patient has diabetic neuropathy 07/19/2025 Weekly blood pressure task 08/08/2025 Weekly blood pressure task 08/08/2025 Weekly blood pressure task 08/08/2025 Patient has chronic kidney disease 08/08/2025 Patient has chronic kidney disease 08/08/2025 Patient has chronic kidney disease 08/08/2025 Patient has diabetic neuropathy 08/08/2025 Patient has diabetic neuropathy 08/08/2025 Patient has diabetic neuropathy 08/08/2025 Weekly blood pressure task 08/17/2025 Weekly blood pressure task 08/17/2025 Weekly blood pressure task 08/17/2025 Patient has chronic kidney disease 08/17/2025 Patient has chronic kidney disease 08/17/2025 Patient has chronic kidney disease 08/17/2025 Patient has diabetic neuropathy 08/17/2025 Patient has diabetic neuropathy 08/17/2025 Patient has diabetic neuropathy 08/17/2025 Assessment Noted Time PHQ-9 Depression Total Score: 0 05/15/20 25 10:49 AM EDT documented as of this encounter Care Teams Manager Regulatory Relationship Specialty Start Date End Date Xuan Mckeon MD [address] [place] [address] PCP - General Family Medicine 09/20/20 Yariel Schmid, CristóbalD [address] [place] [address] Pharmacist Internal Medicine 11/23/22 documented as of this encounter
--- OUTSIDE RECORDS SUMMARY | 2025-08-17 19:34 | XMS_ITS | Encounter Summary ---
Author Organization [employer] Address 75 [facility] 7t [place] [address] Care Team Providers Care Reinforcing Iron And Rebar Workers Name Role Phone Xuan Mckeon MD Primary Care Provider [phone] Yariel Schmid PharmD Unavailable [phone] Reason for Visit * Reason Comments Med Refill Encounter Details Date Type Department Care Team ([facility] st Contact Info) Description 10/05/2023 Refill [facility] MEDICINE [address] [place], [place] [phone] Xuan Mckeon MD [address] [place], [place] [phone] Vitamin B12 deficiency Social History Tobacco Use [...] Info) Description 11/02/2025 10:30 AM EST Telemedicine [facility] MED[facility]INE [address] [place] [address] Yariel Schmid, Leelee [address] [place] [address] documented as of this encounter Goals Goal [...] documented as of this encounter Care Teams Reinforcing Iron And Rebar Workers Relationship Specialty Start Date End Date Xuan Mckeon MD [address] [place] [address] PCP - General Family Medicine 09/20/20 Yariel Schmid, CristóbalD [address] [place] [address] Pharmacist Internal Medicine 11/23/22 documented as of this encounter
--- OUTSIDE RECORDS SUMMARY | 2025-08-17 19:35 | XMS_ITS | Encounter Summary ---
Author Organization [employer] Address [address] [facility] [address] 7t [place] [address] Care Team Providers Care Toll Testboard Worker Name Role Phone Xuan Mckeon MD Primary Care Provider [phone] Yariel Schmid PharmD Unavailable [phone] Reason for Visit * Reason Comments Med Refill Encounter Details Date Type Department Care Team ([facility] st Contact Info) Description 03/06/2024 Refill [facility] MEDICINE [address] [place], [place] [phone] Ofelia Akhtar, ANP [address] [place], [place] [phone] Other specified anxiety disorders Social History Tobacco [...] 10:30 AM EST Telemedicine [facility] MEDICINE [address] [place] [address] Yariel Schmid PharmD [address] [place] [address] documented as of this encounter Goals Goal [...] documented as of this encounter Care Teams Toll Testboard Worker Relationship Specialty Start Date End Date Xuan Mckeon MD [address] [place] [address] PCP - General Family Medicine 09/20/20 Yariel Schmid PharmD [address] [place] [address] Pharmacist Internal Medicine 11/23/22 documented as of this encounter
--- OUTSIDE RECORDS SUMMARY | 2025-08-17 19:35 | XMS_ITS | Encounter Summary ---
Author Organization [employer] Address [address] [facility] [address] 7t [place] [address] Care Team Providers Care Cosmetics And Toiletries Salesperson Name Role Phone Xuan Mckeon MD Primary Care Provider [phone] Yariel Schmid PharmD Unavailable [phone] Reason for Visit * Reason Onset Date Comments Appointment Request 08/23/2024 Encounter Details Date Type Department Care Team ([facility] st Contact Info) Description 08/23/2024 Telephone [facility] MEDICINE [address] [place] [address] Xuan Mckeon MD [address] [place] [address] Appointment Request Social History Tobacco Use Types [...] today's CDTM visit. Please contact pt at [phone]. (Ugandan Speaker) documented in this encounter Plan of Treatment Upcoming Encounters Date Type Department Care Team ([facility] st Contact Info) Description 11/02/2025 10:30 AM EST Telemedicine [facility] MEDICINE [address] [place] [address] Yariel Schmid PharmD [address] [place] [address] documented as of this encounter Goals Goal [...] documented as of this encounter Care Teams Cosmetics And Toiletries Salesperson Relationship Specialty Start Date End Date Xuan Mckeon MD [address] [place] [address] PCP - General Family Medicine 09/20/20 Yariel Schmid, CristóbalD [address] [place] [address] Pharmacist Internal Medicine 11/23/22 documented as of this encounter
--- OUTSIDE RECORDS SUMMARY | 2025-08-17 19:35 | XMS_ITS | Encounter Summary ---
Author Organization [employer] Address [address] [facility] 7t [place] [address] Care Team Providers Care Director Housekeeping Name Role Phone Xuan Mckeon MD Primary Care Provider [phone] Yariel Schmid PharmD Unavailable [phone] Reason for Referral * Consultation (Routine) - Closed Specialty Diagnoses / Procedures Referred By Contac t Referred To Contact Pharmacy Diagnoses Primary hypertension Type 2 diabetes mellitus without complication, without long-term current use of insulin ([facility]) Xuan Mckeon MD [address] [place] [phone] Phone: tel: fax: Referral ID Status Reason Start Date Expiration Date V isits Requested Visits Authorized [id number] Closed Consult and Treat 07/18/2024 07/18/2025 6 6 Encounter Details Date Type Department Care Team (Late st Contact Info) Description 07/18/2024 Orders Only [facility] MEDICINE [address] [place] [address] [phone] Xuan Mckeon MD [address] [place] [phone] Primary hypertension (Primary Dx); Type 2 diabetes [...] Description 11/02/2025 10:30 AM EST Telemedicine [facility] MEDICINE [address] [place] [address] Yariel Schmid, PharmD [address] [place] [address] Scheduled Referrals Name Type Priority Associated Diagnoses Orde r Schedule Referral to Pharmacy CDTM Outpatient Referral Routine Primary hypertension Type 2 diabetes mellitus without complication, without long-term current use of insulin ([facility]) Ordered: 07/18/2024 documented as of this encounter Goals Goal Patient Goal Type Associated Problems Recent Progress Patient-Stated? Author Blood Pressure < 140/90 Blood Pressure 161/79( 025 11:01 AM EST) No Yariel Schmid, PharmD documented as of this encounter Visit Diagnoses Diagnosis Primary hypertension- Primary Unspecified essential hypertension Type 2 diabetes mellitus without complication, without long-term current use of insulin ([facility]) documented in this encounter Additional Health Concerns Assessment Noted Time PHQ-9 Depression Total Score: 11 024 10:30 AM EDT documented as of this encounter Care Teams Director Housekeeping Relationship Specialty Start Date End Date Xuan Mckeon MD [address] [place] [address] PCP - General Family Medicine 09/20/20 Yariel Schmid, PharmD [address] [place] [address] Pharmacist Internal Medicine 11/23/22 documented as of this encounter
--- OUTSIDE RECORDS SUMMARY | 2025-08-17 19:35 | XMS_ITS | Clinical Summary ---
Author Organization [employer] Address [address] [place] [address] Care Team Providers Care Soil Chemist Name Role Phone Xuan Mckeon MD Primary Care Provider Yariel Schmid PharmD Unavailable [phone] Allergies Active Allergy Reactions Criticality Noted Date [...] SPASMS 30 tablet 1 01/15/20 25 Active EPINEPHrine (Epipen) 0.3 MG/0.3ML injection [...] MORNING 90 tablet 3 05/29/20 25 Active fluticasone (Flonase) 50 MCG/ACT nasal sprayIndication [...] mouth Once per day. 30 tablet 11 5 8:46 AM EST 06/11/20 25 2025 Active metoprolol succinate XL (Toprol-XL) 100 MG 24 hr tabletIndicatio ns:Primary hypertension TAKE 1 TABLET BY MOUTH AT BEDTIME 90 tablet 3 06/25/20 25 Active budesonide-form oterol (Symbicort) 80-4.5 MCG/ACT inhaler Take 2 puffs twice daily. May take additional 1-2 puff every 4 hours as needed for wheezing. Maximum 12 puffs per day. Rinse mouth with water after use. Do not swallow. 1 each 11 5 8:46 AM EST 06/28/20 25 Active pantoprazole (ProtoNix) 40 MG EC tablet Take 1 tablet (40 mg) by mouth Once per day. 90 tablet 5 8:46 AM EST 07/19/20 25 Active LORazepam (Ativan) 1 MG tabletIndicatio ns:Other specified anxiety disorders TAKE 1 TABLET BY MOUTH TWICE DAILY IN THE MORNING AND AT BEDTIME NEEDED FOR ANXIETY 56 tablet 08/23/20 25 Active LORazepam (Ativan) 1 MG tabletIndicatio ns:Other specified anxiety disorders Take 1 tablet (1 mg) by mouth if needed in the morning and at bedtime for anxiety. Do not start before March 06, 2025. 56 tablet 5 5 1:46 PM EST 03/06/20 25 2024 Discontinued pantoprazole (ProtoNix) 40 MG EC tablet TAKE 1 TABLET BY MOUTH EVERY DAY 90 tablet 05/02/20 25 2024 Discontinued(R eorder (will not trigger notification to Pharmacy)) Active Problems Problem Noted Date Diagnosed Date Asthma 06/28/2025 Assessment & Plan (06/28/2025 1:28 PM EDT): - multiple ED visits and documented wheezing - will need to confirm with PFT - she dislikes albuterol due to tachycardia - start budesonide / formoterol (Symbicort) as SMART - upcoming appointment with alcohol law enforcement agent and PFT - her symptoms seemed to have been triggered by airborne pesticides / cockroach extermination chemicals. Will write a letter to her landlord to request integrated pest management Dyspnea 05/26/2025 Assessment & Plan (07/09/2025 3:04 PM EST): - Patient perceives that she does not have asthma. Multiple ED and urgent care visits documenting patient's wheezing. Patient had received multiple steroid treatment. - Upcoming appointment for PFT and alcohol law enforcement agent Assessment & Plan (05/26/2025 6:46 AM EDT): - Recently seen in the emergency department and was prescribed albuterol - Will evaluate with PFT since patient has severe allergy, and may have asthma - Previously seeing job service specialist. Patient may benefit from biologic medication. Will refer her back to specialist Chronic urticaria 05/26/2025 Assessment & Plan (06/28/2025 1:28 PM EDT): - Frequent allergic reaction - Continue cetirizine - Previously tried loratadine and fexofenadine - Continue judicious use of diphenhydramine as needed - Previously seen by job service specialist, but was unable to complete allergy testing - Referred back to job service specialist to assess if patient is a candidate for biologics Assessment & Plan (05/26/2025 6:48 AM EDT): - Frequent allergic reaction - Continue cetirizine - Previously tried loratadine and fexofenadine - Continue judicious use of diphenhydramine as needed - Previously seen by job service specialist, but was unable to complete allergy testing - Will refer her back since she may benefit from a biologic medication Allergic reaction 09/18/2024 Assessment & Plan (07/09/2025 2:58 PM EST): -Pt had history of multiple [...] has already been seen and treated by job service specialist. She states she could not complete immunotherapy due to severe allergic reaction. She has an upcoming appointment. Patient seems to be having reaction to chemicals that were used for insect extermination at her apartment. Will write a letter if the landlord can find a safer alternative. Assessment & Plan (05/26/2025 6:40 AM EDT): [...] has already been seen and treated by job service specialist. She states she could not complete [...] has already been seen and treated by job service specialist. She states she could not complete [...] has already been seen and treated by job service specialist. She states she could not complete [...] 02/29/2024 Hepatic cyst 06/14/2023 Assessment & Plan (07/02/2025 9:42 AM EDT): - CT scan in January 2023 showed: No acute intra-abdominal process seen; Moderate constipation with colonic diverticulosis but no diverticulitis; Bilateral extrarenal kidney pelvises and bilateral perinephric stranding but no obstructive radiopaque calculi seen; Benign left adrenal lesion; Left hepatic lobe cyst. - 07/14/23 Abdominal US hepatic steatosis, stable left hepatic cyst 1.2 x. 1.2 x 1.2 cm. - Most recent imaging in March 2025 CT scan showed 1.4 cm cyst Assessment & Plan (11/30/2023 4:41 AM EDT): [...] US to clarify pt's confusion Obesity 06/14/2023 Assessment & Plan (07/09/2025 3:00 PM EST): - Continue working on lifestyle modifications. Dietary Recommendations: Fruits, vegetables, whole grains, protein foods, and fat-free or low-fat dairy products are healthy choices. Eat different types of protein foods in your diet. This can include seafood, lean meats, poultry, beans, peas, lentils, nuts, seeds, soy products, and eggs. Limit foods and beverages higher in added sugars, saturated fat, and sodium. Exercise Recommendations: At least 150 minutes of moderate-intensity physical activity per week, or an equivalent combination of moderate- and vigorous-intensity activity Patient has severe knee OA, and it is difficult for her to exercise vigorously. Patient was advised to stay physically active as tolerated. Exertional chest pain 12/17/2022 Assessment & Plan (06/28/2025 4:54 AM EDT): - following with toll line mechanic - prescribed amlodipine by toll line mechanic, but patient does not want to take Assessment & Plan (12/17/2022 11:27 AM EDT): Seen by Pilot Plant Technician, Dr. Karimi, on 11/26/22. Reported exertional Cheat Pain Stress Test was ordered -will check status Chronic low back pain 10/04/2022 Assessment & Plan (07/09/2025 3:02 PM EST): Continue judicious use of APAP and cyclobenzaprine Assessment & Plan (10/04/2022 5:48 AM EST): Continue judicious use of APAP and cyclobenzaprine Strain of trapezius muscle 09/29/2022 Primary hypertension 09/29/2022 Assessment & Plan (06/28/2025 4:53 AM EDT): -Goal BP < 130/80 per ACC/AHA -BP at goal today -Co-managed with toll line mechanic, emergency crew supervisor, and PharmD. -pt advised to continue checking BP at home -toll line mechanic: Dr. Karimi, last visit in 04/23/2025; exertional dyspnea. Possible evaluation with CTA or coronary angiography. -normal Holter monitor and echo -continue working on lifestyle modifications -continue losartan 100 mg daily -continue metoprolol succinate 100 mg daily - Continue spironolactone - hctz 25-25 mg daily (history of hypokalemia on KCl supplement) as prescribed by emergency crew supervisor Previous Treatment: -discontinued HCTZ and replaced chlorthalidone. -discontinued Amlodipine d/t leg swelling (recently prescribed by toll line mechanic again, but patient has not started it yet) Assessment & Plan (05/26/2025 6:43 AM EDT): -Goal BP < 130/80 per ACC/AHA -BP at goal today -Co-managed with toll line mechanic, emergency crew supervisor, and PharmD. -pt advised to continue checking BP at home -toll line mechanic: Dr. Karimi, last visit in 04/23/2025; exertional dyspnea. Possible evaluation with CTA or coronary angiography. -normal Holter monitor and echo -continue working on lifestyle modifications -continue losartan 100 mg daily -continue metoprolol succinate 100 mg daily - Continue spironolactone - hctz 25-25 mg daily (history of hypokalemia on KCl supplement) as prescribed by emergency crew supervisor Previous Treatment: -discontinued HCTZ and replaced chlorthalidone. -discontinued Amlodipine d/t leg swelling (recently prescribed by toll line mechanic again, but patient has not started it yet) Assessment & Plan (01/14/2025 5:13 PM EDT): -Goal BP <140/90 per JNC-8, < 130/80 per ACC/AHA -BP not at goal today -Co-managed with toll line mechanic and PharmD. -pt advised to continue checking BP at home -toll line mechanic: Dr. Karimi, last visit in 12/06/24; exertional dyspnea. Possible evaluation with CTA or coronary angiography -normal Holter monitor and echo -continue working on lifestyle modifications -continue losartan 100 mg daily -continue metoprolol succinate 100 mg daily - start spironolactone - hctz 25-25 mg daily (history of hypokalemia on KCl supplement) as prescribed by emergency crew supervisor Previous Treatment: -discontinued HCTZ and replaced chlorthalidone. [...] -BP not at goal today -Co-managed with toll line mechanic and PharmD. -pt advised to continue checking BP at home -toll line mechanic: Dr. Karimi, last visit in 11/26/22; exertional [...] -BP not at goal today -Co-managed with toll line mechanic and PharmD. -pt advised to continue checking BP at home -toll line mechanic: Dr. Karimi, last visit in 11/26/22; exertional [...] -BP not at goal today -Co-managed with toll line mechanic and PharmD. -pt advised to continue checking BP at home -toll line mechanic: Dr. Karimi, last visit in 11/26/22; exertional [...] < 130/80 per ACC/AHA - co-managed with toll line mechanic and PharmD. -pt advised to continue checking BP at home -toll line mechanic: Dr. Karimi, last visit in 11/26/22; exertional [...] < 130/80 per ACC/AHA - co-managed with toll line mechanic and PharmD. -pt advised to continue checking BP at home -toll line mechanic: Dr. Kraimi, last visit in 11/26/22; exertional [...] advised to continue checking BP at home -toll line mechanic: Dr. Karimi, last visit in 11/26/22; exertional [...] advised to continue checking BP at home -toll line mechanic: Dr. Karimi, last visit in 07/06/22; concerns [...] (transient ischemic attack) 09/29/2022 Assessment & Plan (07/09/2025 3:02 PM EST): - seen in ED on 07/03/22 - Started on Plavix by toll line mechanic; ASA was discontinued due to GI bleed - Continue statin, clopidogrel, and losartan - Continue working on lifestyle modification / risk factor management Assessment & Plan (05/15/2025 12:44 PM EDT): - seen in ED on 07/03/22 - Started on Plavix by toll line mechanic; ASA was discontinued due to GI bleed - Continue statin, clopidogrel, and losartan - Continue working on lifestyle modification / risk factor management Assessment & Plan (01/14/2025 5:04 PM EDT): - seen in ED on 07/03/22 - Started on Plavix by toll line mechanic; ASA was discontinued due to GI bleed - Continue statin, clopidogrel, and losartan - Continue working on lifestyle modification / risk factor management Assessment & Plan (05/30/2024 11:03 AM EDT): - seen in ED on 07/03/22 - Started on Plavix by toll line mechanic; ASA was discontinued due to GI bleed - Continue statin, clopidogrel, and losartan - Continue working on lifestyle modification / risk factor management Assessment & Plan (11/30/2023 4:38 AM EDT): - seen in ED on 07/03/22 - Started on Plavix by toll line mechanic; ASA was discontinued due to GI bleed - Continue statin, clopidogrel, and losartan - Continue working on lifestyle modification / risk factor management Assessment & Plan (12/17/2022 11:23 AM EDT): - seen in ED on 07/03/22 - Started on Plavix by toll line mechanic; ASA was discontinued due to GI bleed - Continue statin, clopidogrel, and losartan - Continue working on lifestyle modification / risk factor management Assessment & Plan (10/04/2022 5:51 AM EST): - seen in ED on 07/03/22 - Started on Plavix by toll line mechanic; ASA was discontinued due to GI bleed - Continue statin, clopidogrel, and losartan - Continue working on lifestyle modification / risk factor management Type 2 diabetes mellitus 03/28/2020 Assessment & Plan (07/02/2025 9:36 AM EDT): - A1C 6.8% on 06/28/2025, slightly increased, most likely due to multiple steroid treatment for asthma exacerbation. Previously 6.4% for > 6 months. -continue metformin ER 500 mg daily, consider increasing if glycemic control does not improve with lifestyle modifications and/or if she requires multiple systemic steroid use. -continue working on lifestyle modifications -Last lipid profile: 11/08/2024 -Last microalbumin test: 11/08/2024, no microalbuminuria -Last foot exam: 06/28/2025 -Last comprehensive eye exam: ? Upcoming appointment in 2025 Assessment & Plan (05/15/2025 12:50 PM EDT): [...] season Vitamin B12 deficiency (non anemic) 03/28/2020 Assessment & Plan (06/28/2025 1:29 PM EDT): - continue vitamin B12 oral supplementation Seborrheic psoriasis 09/17/2019 Adrenal incidentaloma 12/28/2018 Assessment & Plan (07/02/2025 9:37 AM EDT): - most recent imaging in March 2025 - benign-appearing left adrenal cyst, stable Assessment & Plan (01/14/2025 5:14 PM EDT): - most recent imaging in February 2023 - benign-appearing left adrenal cyst - repeating CT by emergency crew supervisor Assessment & Plan (06/14/2023 3:20 PM EDT): - most recent imaging in February 2023 - benign-appearing left adrenal cyst Glaucoma 11/18/2018 Arthritis of knee 09/01/2018 Assessment & Plan (07/09/2025 3:02 PM EST): - patient received synvisc x3 to each knee - patient was evaluated by orthopedist and was informed that she is not a surgical candidate Assessment & Plan (05/30/2024 11:04 AM EDT): - patient received synvisc x3 to each knee - patient was evaluated by orthopedist and was informed that she is not a surgical candidate Obstructive sleep apnea syndrome 06/16/2018 Generalized anxiety disorder 05/06/2018 Assessment & Plan (07/09/2025 3:08 PM EST): - behavioral health service provider: Therapist: Shadia Garay - TIERA with panic attack - continue judicious use of lorazepam Assessment & Plan (10/17/2024 10:37 AM EST): [...] a year Fibromyalgia 05/06/2018 Assessment & Plan (07/09/2025 3:01 PM EST): continue judicious use of cyclobenzaprine -continue diclofenac gel -encourage trying home exercise program Assessment & Plan (05/30/2024 10:37 AM EDT): [...] (gastroesophageal reflux disease) 8 Assessment & Plan (07/02/2025 9:42 AM EDT): - continue pantoprazole (consider discontinuing if no indication for long-term treatment) - pt is on Plavix, and omeprazole has a drug interaction. Assessment & Plan (10/04/2022 5:55 AM EST): - continue pantoprazole - pt is on Plavix, and omeprazole has a drug interaction. Diverticulosis of large intestine without hemorr nahun 03/17/2016 Varicose veins of both lower extremities 013 Assessment & Plan (06/28/2025 1:28 PM EDT): - continue conservative management Diabetic neuropathy 01/16/2013 Overview (06/11/2025): Mild numbness Adrenal adenoma 05/12/2012 Rectocele, female 03/02/2012 Hemorrhoid 01/27/2012 Metabolic dysfunction-associ ated steatotic liver disease (MASLD) 08/24/2011 Assessment & Plan (07/02/2025 9:41 AM EDT): - Last liver test: 06/28/2025, improved - Last US / elastography: 06/2023. Hepatic steatosis. CT in March 2025 showed a 1.4 cm hypodensity in the left lobe which likely represents a cyst or hemangioma (previously seen and stable). - FIB4 index 1.73 - GI: Dr. Casanova. History of diverticulitis. - continue working on lifestyle modifications - continue surveillance study History of diverticulitis 06/22/2011 Overview (10/17/2024): Patient describes 3 episodes, last on treated at [facility] on 04/2012 Assessment & Plan (07/02/2025 9:41 AM EDT): - recurrent - most recent episode in Jun 2024. Presented with LLQ pain. CT showed diverticulitis of descending colon. - continue maintaining a good, protective gut microbiome Assessment & Plan (10/17/2024 10:49 AM EST): - recurrent - most recent episode in Jun 2024. Presented with LLQ pain. CT showed diverticulitis of descending colon. - continue maintaining a good, protective gut microbiome Resolved Problems Problem Noted Date Diagnosed Date Resolved Date Hypokalemia 09/18/2024 07/09/2025 Assessment & Plan (01/14/2025 5:15 PM EDT): [...] completes Potassium Chloride, we will check lab History of kidney stones 06/14/202305/2023 Pruritus 12/17/2022 11/30/2023 Assessment & Plan (12/17/2022 1:59 PM EDT): Patient attributes change in the Vitamin B12 tablets -will ask Pharmacist if other B12 tablets is available. Palpitations 05/06/2018 11/30/2023 High cholesterol 06/22/2011 06/27/2025 Encounters Date Type Department Care Team Description 08/17/2025 Refill [facility] [address] [place] [address] Xuan Mckeon MD Other specified anxiety disorders 08/09/2025 10:30 AM EST Telemedicine [facility] [address] [place] [address] Yariel Schmid, PharmD Primary hypertension (Primary Dx); Type 2 diabetes mellitus without complication, without long-term current use of insulin ([facility]) 07/19/2025 Refill [facility] [address] [facility] [place] [address] Xuan Mckeon MD 07/10/[address] [address] Carla Judge [place] 07/02/2025 Results Follow-Up [facility] [address] [place] [address] Xuan Mckeon MD T-SPOT .TB, Hemoglobin A1c, Comprehensive Metabolic Panel, Lipid Panel with Reflex to Direct LDL 06/28/2025 9:00 AM EDT Office Visit [facility] [address] [facility] [place] [address] Xuan Mckeon MD Varicose veins of both lower extremities, unspecified whether complicated (Primary Dx); Primary hypertension; Dyslipidemia; Vitamin B12 deficiency (non anemic); Type 2 diabetes mellitus without complication, without long-term current use of insulin (HCC); Adrenal incidentaloma (CMS/HCC); Metabolic dysfunction-associate d steatotic liver disease (MASLD); History of diverticulitis; Gastroesophageal reflux disease, unspecified whether esophagitis present; Arthritis of knee; Chronic bilateral low back pain, unspecified whether sciatica present; TIA (transient ischemic attack); Obstructive sleep apnea syndrome; Chronic urticaria; Shortness of breath; Exertional chest pain; Encounter for screening for respiratory tuberculosis; Allergic reaction, sequela; Moderate persistent asthma without complication; Class 1 obesity due to excess calories with serious comorbidity and body mass index (BMI) of 31.0 to 31.9 in adult; Glaucoma, unspecified glaucoma type, unspecified laterality; Hepatic cyst; Fibromyalgia; Diabetic polyneuropathy associated with type 2 diabetes mellitus (HCC); Generalized anxiety disorder 06/28/2025 Travel 06/27/2025 Telephone [facility] [address] [place] [id number] Xuan Mckeon MD chart prep 06/24/[address] [address] Yariel Schmid PharmD Primary hypertension 06/14/2025 Orders Only [address] [address] Xuan Mckeon MD Primary hypertension (Primary Dx); Type 2 diabetes mellitus without complication, without long-term current use of insulin (HCC) 06/13/2025 10:30 AM EDT Telemedicine [address] [address] Yariel Schmid PharmD Primary hypertension (Primary Dx); Type 2 diabetes mellitus without complication, without long-term current use of insulin (HCC) 06/11/2025 1:00 PM EDT Office Visit [facility] [address] [place] [id number] Willow Wilson MD Allergic reaction, sequela (Primary Dx); Diabetic polyneuropathy associated with type 2 diabetes mellitus (HCC); Bronchitis; Fluid level behind tympanic membrane of right ear 06/11/2025 Travel 05/30/2025 Travel 05/28/[address] [address] Xuan Mckeon MD ER Follow-up; Medication Question 05/28/2025 Refill [facility] [address] [place] [address] Xuan Mckeon MD 05/23/2025 Orders Only GENERIC EXTERNAL DATA DEPARTMENT Provider, Generic External Data 05/22/2025 Telephone [facility] [address] [place] [address] Xuan Mckeon MD Lab Orders from Last 3 Months Immunizations Immunization Administration [...] Sign Reading Time Taken Comments Blood Pressure 161/79 08/09/2025 11:01 AM EST [facility] Monitor (Televisit) Pulse 81 08/09/2025 11:01 AM EST Temperature 36.1 C (96.9 F) 06/28/2025 9:14 AM EDT Respiratory Rate 15 06/28/2025 9:14 AM EDT Oxygen Saturation 97% 06/28/2025 9:1 4 AM EDT Inhaled Oxygen Concentration - - Weight 75.3 kg (166 lb) 06/28/2025 9:14 AM EDT Height 154.9 cm (5' 1 ) 06/28/2025 9:14 AM EDT Body Mass Index 31.37 06/28/2025 9:14 AM EDT Plan of Treatment Upcoming Encounters Date Type Department Care Team (Late st Contact Info) Description 11/02/2025 10:30 AM EST Telemedicine [facility] [address] [place], [place] [phone] Yariel Schmid, PharmD [address] [place] [address] Health Maintenance Due Date Last Done Comments CT Colonography 1950 Colonoscopy 1950 Dental X-Ray: Bitewings 1950 FIT 1950 Sigmoidoscopy 1950 Hepatitis A Vaccines (1 of 2 - Risk 2-dose series) 1970 RSV Patients and Patients Aged 60 years or older (1 - Risk 50-74 years 1-dose series) 2001 Zoster Vaccines (1 of 2) 2001 Hepatitis B Vaccines (1 of 3 - Risk 3-dose series) 2011 Dental Oral Exam 07/18/2022 01/14/2022 Dental Prophylaxis 07/27/2022 01/23/2022 DTaP/Tdap/Td Vaccines (2 - Td or Tdap) 09/25/2023 09/25/2013, 11/05/2001 Dental X-Ray: Full Mouth 01/11/2024 01/09/2021 FOBT 01/11/2025 01/12/2024, 01/03/2024 Eye Exam 02/23/2025 02/23/2023, 0610/2015, 01/31/2015, Additional history exists COVID-19 Vaccine ( season) 2025 07/23/2021, 12/18/2020 Influenza Vaccine (#1) 2025 , 06/25/2023, 06/01/2022, Additional history exists Alcohol/Substance Use Screening 09/18/2025 09/18/2024 Diabetes: Hemoglobin A1C 09/28/2025 025, 05/15/2025, 01/11/2025, Additional history exists Diabetes: Urine Protein Screening 11/08/2025 11/08/2024, 06/08/2024, 06/16/2023, Additional history exists Depression Screening 05/15/2026 05/15/2025, 05/15/20 25 SDOH Screening 05/15/2026 05/15/2025 Mammogram 2026 2024, 11/05, 05/19/2019, Additional history exists Diabetes: Foot Exam 06/28/2026 06/28/2025, 06/28/2025, 06/28/2025, Additional history exists Lipid Panel 06/28/2026 06/28/2025, 03/0 01/2025, 06/08/2024, Additional history exists Tobacco Screening 06/28/2026 06/28/2025 [...] 161/79(2024 11:01 AM EST) No Yariel Schmid, PharmD Help patients manage their type 2 diabetes Care Plan Help patients manage their type 2 diabetes No Shannon Gutierrez, PharmD Weekly blood pressure task Care Plan [...] Patient has diabetic neuropathy No Shannon Gutierrez, PharmD Weekly blood pressure task Care Plan Weekly blood pressure task No Shannon Gutierrez, PharmD Weekly blood pressure task Care Plan Weekly blood pressure task No Shannon Gutierrez, PharmD Patient has chronic kidney disease Care Plan Patient has chronic kidney disease No Shannon Gutierrez PharmD Patient has chronic kidney disease Care Plan Patient has chronic kidney disease No Shannon Gutierrez PharmD Patient has diabetic [...] blood pressure task No Yariel Schmid PharmD Patient has chronic kidney disease Care Plan Patient has chronic kidney disease No Yariel Schmid PharmD Patient has chronic kidney disease Care Plan Patient has chronic kidney disease No Yariel Schmid PharmD Patient has chronic kidney disease Care Plan Patient has chronic kidney disease No Yariel Schmid PharmD Patient has diabetic neuropathy Care Plan Patient has diabetic neuropathy No Yariel Schmid PharmD Patient has diabetic neuropathy Care Plan Patient has diabetic neuropathy No Yariel Schmid PharmD Patient has diabetic neuropathy Care Plan [...] has diabetic neuropathy No Molly Cates RN Procedures Procedure Name Priority Date/Time Associated Diagnosis Comments LIPID PANEL WITH REFLEX TO DIRECT LDL Routine 06/28/2025 10:22 AM EDT Dyslipidemia COMPREHENSIVE METABOLIC PANEL Routine 06/28/2025 10:22 AM EDT Primary hypertension HEMOGLOBIN A1C Routine 06/28/2025 10:22 AM EDT Type 2 diabetes mellitus without complication, without long-term current use of insulin (HCC) T-SPOT(R).TB Routine 06/28/2025 10:22 AM EDT Encounter for screening for respiratory tuberculosis BASIC METABOLIC PANEL Routine 05/23/2025 8:42 AM EDT URINALYSIS, COMPLETE (INCLUDES MACRO AND MICRO) Routine 05/23/2025 8:42 AM EDT T-SPOT(R).TB Routine 05/23/2025 8:42 AM EDT Screening for tuberculosis ALBUMIN, RANDOM URINE W/CREATININE Routine 11/08/2024 9:12 [...] Relevant to Health Maintenance Results * T-SPOT??.TB (06/28/2025 10:22 AM EDT) Only the most recent of2 resultswithin the time period is included. Pathologist [facility] T Spot TB Negative Negative [facility] Comment:A negative test resu lt does [...] as aquantitative test. TS PANEL A 0 [facility] TS PANEL B 1 [facility] Negative Control Passed [facility] Positive Control Passed [facility] Comment:For additional infor nina, please refer tohttp://education.R[employer]Media/faq/UHH119(This link is being provided for informational/educational purposes only.)THIS TEST WAS PERFORMED AT:[employer]/[facility] [id number] [place] [address]RVVNHUF W. MASON,MD,PHD 06/28/2025 10:2 2 AM EDT 06/28/2025 11:21 AM EDT us Xuan Mckeon MD LAB BLOOD ORDERABLES Final Resul t [facility] [address] [place] [address] [phone] * (ABNORMAL) Lipid Panel with Reflex to Direct LDL (06/28/2025 10:22 AM EDT) Triglycerides 375(H) <150 mg/dL [facility] Comment:Desirable Triglyceri de: less than 150 mg/dLBorderline High Triglyceride 150-199 mg/dLHigh Triglyceride: 200-499 mg/dLVery High Triglyceride: greater than or equal to 5OO mg/dL Cholesterol 202(H) <200 mg/dL [facility] Comment:Desirable Cholestero l: less than 200 mg/dLBorderline High Cholesterol: 200-239 mg/dLHigh Cholesterol: greater than 239 mg/dL LDL Cholesterol Calculated 88 <100 mg/dL [facility] Comment:Desirable LDL: less than 100 mg/dLNear Optimal/Above Optimal LDL: 110- 129 mg/dLBorderline High LDL: 130-159 mg/dLHigh LDL: 160-189 mg/dLVery High LDL: greater than or equal to 190 mg/dL HDL Cholesterol 39(L) >40 mg/dL [facility] Comment:Desirable HDL: great er than 40 mg/dL Note: This HDL assay may give artificially low results in patients with liver disease. Blood 06/28/2025 10:2 2 AM EDT 06/28/2025 11:21 AM EDT us Xuan Mckeon MD LAB BLOOD ORDERABLES Final Resul t [facility] [address] [place] [phone] * (ABNORMAL) Hemoglobin A1c (06/28/2025 10:22 AM EDT) Hemoglobin A1c 6.9(H) <6.0 % [facility] Comment:Hemoglobin A1C Refer ence Range Adults: 4.8 - 6.0 % Non diabetic: < 6.0 % Goal: < 7.0 %Additional Action Suggested: > 8.0 %Note: Hemoglobin A1c results are invalid for patients with abnormal amounts of HbF. Blood transfusions may impact the HbA1c concentration in the patient sample. Estimated Average Glucose 151 mg/dL [facility] Comment:eAG = Estimated ave rage glucose which is %A1C expressed asaverage glucose, using the formula of the Y3I-LipetytDdzresv Glucose study (ADAG), Diabetes Care, Vol.31,#8,Apr. 2007 Blood Venous blood specimen / Unknown 06/28/2025 10:22 AM EDT 06/28/2025 11:21 AM EDT us Xuan Mckeon MD LAB BLOOD ORDERABLES Final Resul t [facility] [address] [place] [address] [phone] * (ABNORMAL) Comprehensive Metabolic Panel (06/28/2025 10:22 AM EDT) Sodium 135 135 - 145 mmol/L [facility] Potassium 4.1 3.3 - 5.1 mmol/L [facility] Chloride 101 96 - 108 mmol/L [facility] Carbon Dioxide 28 22 - 29 mmol/L [facility] Anion Gap 10(L) 12 - 20 [facility] Urea Nitrogen (BUN) 17(H) 9 - 16 mg/dL [facility] Creatinine, Serum 0.91 0.5 - 1.4 mg/dL [facility] Estimated Glomerular Filt Rate >60 [facility] Comment:Chronic Kidney Disea se: Estimated GFR < 60 mL/min/1.21k5Pkgcqy Kidney Disease: Estimated GFR < 15 mL/min/1.73m2 Glucose 118(H) 60 - 115 mg/dL [facility] Calcium 9.4 8.4 - 10.2 mg/dL [facility] Bilirubin, Total 0.7 0.0 - 1.0 mg/dL [facility] Aspartate Amino Transferase 26 5 - 31 U/L [facility] Alanine Aminotransferase 20 0 - 31 U/L [facility] Total Protein 7.1 6.5 - 8.0 g/dL [facility] Albumin Level 4.7 3.5 - 5.0 g/dL [facility] Alkaline Phosphatase 53 39 - 117 U/L [facility] Blood Venous blood specimen / Unknown 06/28/2025 10:22 AM EDT 06/28/2025 11:21 AM EDT Xuan Mckeon MD LAB BLOOD ORDERABLES Final Resul t Performing Organization Address City/State/[facility] Co de Phone Number [facility] [address] [place] [address] [phone] * (ABNORMAL) Urinalysis Complete (05/23/2025 8:42 AM EDT) Color Urine Yellow [facility] Appearance Urine Cloudy [facility] PH 6.0 5.0 - 9.0 [facility] Glucose Urine UA Negative Negative mg/dL [facility] Urine Blood Negative Negative [facility] Specific [place] - Urine 1.020 1.005 - 1.025 [facility] Urine Protein Negative Neg-Trace mg/dL [facility] Urine Ketones Trace Negative mg/dL [facility] Nitrite Urine Negative Negative [facility] Leukocyte Esterase Urine Small (1+)(A) Negative [facility] RBC Urine 0-2 0 - 2 /HPF [facility] Urine WBC 0-5 0 - 5 /HPF [facility] Urine Squamous Epithelial Cell 3-5 0 - 2 /HPF [facility] Urine Bacteria 2+ None Seen [facility] Hyaline Casts, Urine 0-2 0 - 2 /LPF [facility] 05/23/2025 8:42 AM EDT 05/23/2025 11:14 AM EDT us Generic External Data Provider LAB URINE ORDERAB LES Final Result Performing Organization Address [facility] Co de Phone Number [facility] [address] [place] [address] [phone] * (ABNORMAL) Basic Metabolic Panel (05/23/2025 8:42 AM EDT) Sodium 134(L) 135 - 145 mmol/L [facility] Potassium 4.2 3.3 - 5.1 mmol/L [facility] Chloride 98 96 - 108 mmol/L [facility] Carbon Dioxide 28 22 - 29 mmol/L [facility] Anion Gap 12 12 - 20 [facility] Urea Nitrogen (BUN) 13 9 - 16 mg/dL [facility] Creatinine, Serum 0.79 0.5 - 1.4 mg/dL [facility] Estimated Glomerular Filt Rate >60 [facility] Comment:Chronic Kidney Disea se: Estimated GFR < 60 mL/min/1.44g0Uygdlu Kidney Disease: Estimated GFR < 15 mL/min/1.73m2 Glucose 194(H) 60 - 115 mg/dL [facility] Calcium 9.5 8.4 - 10.2 mg/dL [facility] 05/23/2025 8:42 AM EDT 05/23/2025 11:14 AM EDT us Generic External Data Provider LAB BLOOD ORDERAB LES Final Result Performing Organization Address [facility] Co de Phone Number [facility] [address] [place] [phone] * Albumin, Random Urine W/Creatinine (11/08/2024 9:12 AM EST) Creatinine, Urine 161.01 mg/dL [facility] Microalbumin Urine 6.0 mg/L [facility] Microalbum Creatinine Ratio Ur 3.7 <30 ug/mg cr [facility] Comment:Albumin/Creatinine R atio Reference Ranges: Normal: < 30 ug/mg creatinine Microalbuminuria: 30 - 300 ug/mg creatinineClinical Albuminuria: > 300 ug/mg creatinine Urine 11/08/2024 9:12 AM EST 11/08/2024 11:25 AM EST us Xuan Mckeon MD LAB URINE ORDERABLES Final Resul t Performing Organization Address [facility] Co de Phone Number [facility] [address] [place] [phone] * BI Mammogram Screening Tomosynthesis Bilateral (2024 9:15 AM EDT) Anatomical Region Laterality Modality Breast Bilateral Mammography 2024 9:15 AM EDT Narrative 06/15/2024 7:13 PM EDT [address] [place] [address] Mammography Report Signed Patient: Che Person MR #: [id number] : 1950 Acct:[id number] Age/Sex: 74 / F ADM Date: 06/06/24 Loc: HO.MAMMO Attending Dr: Xuan Mckeon MD Ordering Physician: Xuan Mckeon MD Results: 1Negative Date of Service: 06/06/24 Follow Up: 1 Year From Orig ina Mammogram Procedure(s): MM tomosynthesis screening BI Accession Number(s): [id number] cc: Xuan Mckeon MD EXAMINATION: MM SCREENING [...] in OV> 06/15/241909 DD/ 4 TD/TT: 06/06/24919 Tow Driver: Procedure Note Donotuseinterpreter, Image - 06/15/[address] [place] [address] Mammography Report Signed Patient: Alexis Person #: [id number] : 1950cct:[id number] Age/Sex: 74 / FADM Date: 06/06/24 Loc: HO.MAMMO Attending Dr: Xuan Mckeon MD Ordering Physician: Xuan Mckeon MDResults: 1Negative Date of Service: 06/06/24Follow Up: 1 Year From [facility] Mammogram Procedure(s): MM tomosynthesis screening BI Accession Number(s): [id number] cc: Xuan Mckeon MD EXAMINATION: MM SCREENING [...] Blanton DO in OV> 06/15/24 1910 DD/ TD/TT: 06/06/24919 Tow Driver: Xuan Mckeon MD IM BI PROCEDURES Edited Result - Final * FIT DNA/Cologuard Cancer Screening (01/12/2024) Cologuard Cancer Screen Negative Stool Historical Provider HEALTH MAINTENANCE Final Result * Diabetes Eye Exam (02/23/2023) Eye Exam Normal Normal, BIRADS 0 , BIRADS 1 , BIRADS 2, BIRADS 3 , BIRADS 4+ 02/23/2023 Historical Provider HEALTH MAINTENANCE Final Result * HEPATITIS C AB W/REFL TO HCV RNA, QN, PCR (10/23/2020 8:55 AM EST) HEPATITIS C ANTIBODY NON-REACT [facility] NON-REACT [facility] INDEX 0.01 <1.00 [facility] Comment: HCV antibody was non-reactive. There is no laboratory evidence of HCV infection. In most cases, no further action is required. However, if recent HCV exposure is suspected, a test for HCV RNA (test code 30644) is suggested. For additional information please refer to http://education.Rhythm NewMedia/faq/UUA32h7 (This link is being provided for informational/ educational purposes only.) 10/23/2020 8:55 AM EST Xuan Mckeon MD HISTORICAL/NON ORDERABLE LABS Fi nal Result [facility] [address] from Last 3 Months or Most Recently Relevant to Health Maintenance Additional Health Concerns Active Problems Noted Date [...] neuropathy 08/17/2025 Patient has diabetic neuropathy 08/17/2025 Insurance [facility] LONG TERM OPTIONS (O D-SNP) [place] [id number] [facility] Care Teams Soil Chemist Relationship Specialty Start Date End Date Xuan Mckeon MD [address] [place] [address] PCP - General Family Medicine 09/20/20 Yariel Schmid, CristóbalD [address] [place] [phone] Pharmacist Internal Medicine 11/23/22
--- OUTSIDE RECORDS SUMMARY | 2025-08-17 19:35 | XMS_ITS | Encounter Summary ---
Author Organization [employer] Address [address] [facility] 7t [place] [address] Care Team Providers Care Knitting Machine Operator Name Role Phone Xuan Mckeon MD Primary Care Provider [phone] Yariel Schmid PharmD Unavailable [phone] Encounter Details Date Type Department Care Team (Latest Contact Info) Description 07/02/2025 Results Follow-Up [facility] [address] [place], [place] [phone] Xuan Mckeon MD [address] [place], [place] [phone] T-SPOT .TB, Hemoglobin A1c, Comprehensive Metabolic Panel, Lipid Panel with Reflex to Direct LDL Social History Tobacco Use Types Packs/Day Years [...] Info) Description 11/02/2025 10:30 AM EST Telemedicine [facility] [address] [place] [address] Yariel Schmdi PharmD [address] [place] [address] documented as of this encounter Goals Goal Patient Goal Type Associated Problems Recent Progress Patient-Stated? Author Blood Pressure < 140/90 Blood Pressure 161/79( 025 11:01 AM EST) No Yariel Schmid, PharmSydnee documented as of this encounter Visit Diagnoses Not on filedocumented in this encounter Additional Health Concerns Assessment Noted Time PHQ-9 Depression Total Score: 0 05/15/20 25 10:49 AM EDT documented as of this encounter Care Teams Knitting Machine Operator Relationship Specialty Start Date End Date Xuan Mckeon MD [address] [place] [address] PCP - General Family Medicine 09/20/20 Yariel Schmid PharmD [address] [place] [address] Pharmacist Internal Medicine 11/23/22 documented as of this encounter
--- OUTSIDE RECORDS SUMMARY | 2025-08-17 19:35 | XMS_ITS | Encounter Summary ---
Author Organization [employer] Address [address] [facility] [address] 7[address] [place] [address] Care Team Providers Care Cake Decorator Name Role Phone Xuan Mckeon MD Primary Care Provider [phone] Yariel Schmid PharmD Unavailable [phone] Encounter Details Date Type Department Care Team ([facility] st Contact Info) Description 12/06/2023 Orders Only [facility] [address] [place], [place] [phone] Xuan Mckeon MD [address] [place], [place] [phone] Social History Tobacco Use Types Packs/Day Years [...] Info) Description 11/02/2025 10:30 AM EST Telemedicine [facility] [address] [place] [address] Yariel Schmid PharmD [address] [place] [address] documented as of this encounter Goals Goal [...] documented as of this encounter Care Teams Cake Decorator Relationship Specialty Start Date End Date Xuan Mckeon MD [address] [place] [address] PCP - General Family Medicine 09/20/20 Yariel Schmid, CristóbalD [address] [place] [address] Pharmacist Internal Medicine 11/23/22 documented as of this encounter
--- OUTSIDE RECORDS SUMMARY | 2025-08-17 19:35 | XMS_ITS | Encounter Summary ---
Author Organization [facility] Address 75 [facility] 7t [place] [address] Care Team Providers Care All Source Intelligence Technician Name Role Phone Xuan Mckeon MD Primary Care Provider [phone] Yariel Schmid PharmD Unavailable Reason for Referral * Consultation (Routine) - Authorized Specialty Diagnoses / Procedures Referred By Contac t Referred To Contact Pharmacy Diagnoses Primary hypertension Type 2 diabetes mellitus without complication, without long-term current use of insulin (HCC) Xuan Mckeon MD [address] [place] [phone] Phone: tel: fax: Referral ID Status Reason Start Date Expiration Date Visits Requested Visits Authorized [id number] Authorized Consult and Treat 06/14/2025 06/14/2026 6 6 Encounter Details Date Type Department Care Team (Late st Contact Info) Description 06/14/2025 Orders Only [facility] [address] [place] [phone] Xuan Mckeon MD [address] [place] [address] [phone] Primary hypertension (Primary Dx); Type 2 diabetes [...] Info) Description 11/02/2025 10:30 AM EST Telemedicine [facility] [address] [place] [address] Yariel Schmid, PharmD [address] [place] [address] Scheduled Referrals Name Type Priority Associated Diagnoses [...] documented as of this encounter Care Teams All Source Intelligence Technician Relationship Specialty Start Date End Date Xuan Mckeon MD [address] [place] [address] PCP - General Family Medicine 09/20/20 Yariel Schmid, PharmD [address] [place] [address] Pharmacist Internal Medicine 11/23/22 documented as of this encounter
--- OUTSIDE RECORDS SUMMARY | 2025-08-17 19:35 | XMS_ITS | Encounter Summary ---
Author Organization [employer] Address 75 [facility] 7t [place] [address] Care Team Providers Care Oracle Endeca Consultant Name Role Phone Xuan Mckeon MD Primary Care Provider [phone] Yariel Schmid PharmD Unavailable [phone] Reason for Visit * Reason Comments Med Refill Encounter Details Date Type Department Care Team ([facility] st Contact Info) Description 10/18/2024 Refill [facility] [address] [place], [place] [phone] Xuan Mckeon MD [address] [place], [place] [phone] Fibromyalgia Social History Tobacco Use Types Packs/Day [...] Info) Description 11/02/2025 10:30 AM EST Telemedicine [facility] [address] [place] [address] Yariel Schmid, CristóbalD [address] [place] [address] documented as of this encounter Goals Goal [...] documented as of this encounter Care Teams Oracle Endeca Consultant Relationship Specialty Start Date End Date Xuan Mckeon MD [address] [place] [phone] PCP - General Family Medicine 09/20/20 Yariel Schmid, PharmD [address] [place] [address] Pharmacist Internal Medicine 11/23/22 documented as of this encounter
--- OUTSIDE RECORDS SUMMARY | 2025-08-17 19:35 | XMS_ITS | Encounter Summary ---
Author Organization [employer] Address [address] [facility] [address] [place] [address] Care Team Providers Care Bear Keeper Name Role Phone Xuan Mckeon MD Primary Care Provider [phone] Yariel Schmid PharmD Unavailable [phone] Encounter Details Date Type Department Care Team ([facility] st Contact Info) Description 12/24/2023 Orders Only [facility] [address] [place], [place] [phone] Xuan Mckeon MD [address] [place], [place] [phone] Dermatitis (Primary Dx) Social History Tobacco Use [...] 11/02/2025 10:30 AM EST Telemedicine [facility] [address] [place] [address] Yariel Schmid, Leelee [address] [place] [address] documented as of this encounter Goals Goal [...] documented as of this encounter Care Teams Bear Keeper Relationship Specialty Start Date End Date Xuan Mckeon MD [address] [place] [address] PCP - General Family Medicine 09/20/20 Yariel Schmid, Leelee [address] [place] [address] [phone] Pharmacist Internal Medicine 11/23/22 documented as of this encounter
== END 2025-08-17 14:22 | disposition home or self-care (01) ==
LOC: HO.RESP 14:21
PROVIDERS: PCP Family Medicine; Visit Provider Family Medicine
DX: R06.02 Shortness of breath (principal); R06.00 Dyspnea, unspecified; T78.40XS Allergy, unspecified, sequela
CPT/HCPCS: 94060; 94640; 94727; 94729

== ENCOUNTER → 2025-08-17 14:49 | Outpatient (BNV) | payer OTHER, SELFPAY | PROVIDERS: PCP Family Medicine; Visit Provider Internal Medicine Pulmonary Disease | DX: R06.00 Dyspnea, unspecified (principal) | CPT/HCPCS: 94060; 94727; 94729 ==

== ENCOUNTER 2025-08-22 11:16 | Outpatient (REF) | payer OTHER, SELFPAY ==
--- NOTE | 2025-08-22 11:21 | EMG_ITS ---
Chief complaint: Bilateral hand numbness Reason for referral: Evaluate for Carpal Tunnel Syndrome Referred by: Dr. Gracia Procedure done: Bilateral upper extremities NCS/EMG Precautions and/or limitations: None The limb temperature was monitored continuously and remained between 32-36 degrees C during the performance of the NCS. Nerve Conduction Studies Anti Sensory Summary Table ?Stim Site NR Onset (ms) Norm Onset (ms) Peak (ms) Norm Peak (ms) O-P Amp (?V) Norm O-P Amp Site1 Site2 Delta-0 (ms) Dist (cm) Dk (m/s) Norm Dk (m/s) Left Median Anti Sensory (2nd Digit) Wrist ? 3.8 5.0 <3.6 12.0 >10 Wrist 2nd Digit 3.8 14.0 37 Right Median Anti Sensory (2nd Digit) Wrist ? 3.3 4.4 <3.6 29.3 >10 Wrist 2nd Digit 3.3 14.0 42 Left Radial Anti Sensory (Thumb) Forearm ? 1.5 2.2 <3.1 37.1 Forearm Thumb 1.5 0.0 Left Ulnar Anti Sensory (5th Digit) Wrist ? 2.4 3.1 <3.7 26.3 >15.0 Wrist 5th Digit 2.4 14.0 58 Right Ulnar Anti Sensory (5th Digit) Wrist ? 2.3 3.0 <3.7 34.6 >15.0 Wrist 5th Digit 2.3 14.0 61 Motor Summary Table ?Stim Site NR Onset (ms) Norm Onset (ms) O-P Amp (mV) Norm O-P Amp iAmp (mV) Amp (1st) (%) Site1 Site2 Delta-0 (ms) Dist (cm) Dk (m/s) Norm Dk (m/s) Left Median Motor (Abd Poll Brev) Wrist ? 5.6 <3.9 8.0 >4.5 9.7 100.0 Elbow Wrist 3.8 19.5 51 >45 Elbow ? 9.4 7.4 8.9 92.5 Right Median Motor (Abd Poll Brev) Wrist ? 5.1 <3.9 7.8 >4.5 9.7 100.0 Elbow Wrist 3.4 20.5 60 >45 Elbow ? 8.5 7.6 9.5 97.4 Left Ulnar Motor (Abd Dig Minimi) Wrist ? 2.7 <3.0 5.1 >5 6.1 100.0 B Elbow Wrist 2.7 17.0 63 >45 B Elbow ? 5.4 5.7 6.9 111.8 A Elbow B Elbow 1.3 10.0 77 >45 A Elbow ? 6.7 5.5 6.8 107.8 Right Ulnar Motor (Abd Dig Minimi) Wrist ? 2.9 <3.0 7.3 >5 8.7 100.0 B Elbow Wrist 2.8 17.0 61 >45 B Elbow ? 5.7 6.6 8.3 90.4 A Elbow B Elbow 1.3 10.0 77 >45 A Elbow ? 7.0 6.4 8.0 87.7 EMG ?Side Muscle Nerve Root Ins Act Fibs Psw Amp Dur Poly Recrt Int Pat Comment Right 1stDorInt Ulnar C8-T1 Nml Nml Nml Nml Nml 0 Nml Complete Right FlexCarRad Median C6-7 Nml Nml Nml Nml Nml 0 Nml Complete Right Biceps Musculocut C5-6 Nml Nml Nml Nml Nml 0 Nml Complete Right Triceps Radial C6-7-8 Nml Nml Nml Nml Nml 0 Nml Complete Right Deltoid Axillary C5-6 Nml Nml Nml Nml Nml 0 Nml Complete Left 1stDorInt Ulnar C8-T1 Nml Nml Nml Nml Nml 0 Nml Complete Left FlexCarRad Median C6-7 Nml Nml Nml Nml Nml 0 Nml Complete Left Biceps Musculocut C5-6 Nml Nml Nml Nml Nml 0 Nml Complete Left Triceps Radial C6-7-8 Nml Nml Nml Nml Nml 0 Nml Complete Left Deltoid Axillary C5-6 Nml Nml Nml Nml Nml 0 Nml Complete FINDINGS: Bilateral median motor nerves showed prolonged distal latency, normal amplitude and normal conduction velocity. Bilateral median sensory nerves showed prolonged peak latency. All other nerves tested were within normal. Concentric needle EMG was performed in selected muscles of the upper extremity. Study did not reveal signs of electric abnormalities as shown in the table above. IMPRESSION: 1. This is an abnormal study. 2. There is electrodiagnostic evidence for bilateral moderate-severe median neuropathy at the wrist, consistent with carpal tunnel syndrome. 3. There is no electrodiagnostic evidence for ulnar neuropathy, brachial plexopathy, or cervical radiculopathy. Thank you for your kind referral. Lilliana Nash MD, ELEONORA Board Certified, [place] [employer] and [employer] (ABPMR) Board Certified, [place] Board [employer] Electrodiagnostic Medicine (ABEM) CODIN [phone] x 2 extremities MTDD
--- OUTSIDE RECORDS SUMMARY | 2025-08-22 14:57 | XMS_ITS | Encounter Summary ---
Author Organization [employer] Address 75 [facility] 7t [place] [address] Care Team Providers Care Paper Steamer Name Role Phone Xuan Mckeon MD Primary Care Provider [phone] Yariel Schmid PharmD Unavailable [phone] Reason for Visit * Reason Comments Med Refill Encounter Details Date Type Department Care Team ([facility] st Contact Info) Description 10/05/2023 Refill [facility] [address] [place], [place] [phone] Xuan Mckeon MD [address] [place], [place] [phone] Vitamin B12 deficiency Social History Tobacco Use [...] Info) Description 11/02/2025 10:30 AM EST Telemedicine [facility] [address] [place] [address] Yariel Schmid, Leelee [address] [place] [address] documented as of this encounter Goals Goal [...] documented as of this encounter Care Teams Paper Steamer Relationship Specialty Start Date End Date Xuan Mckeon MD [address] [place] [address] PCP - General Family Medicine 09/20/20 Yariel Schmdi, CristóbalD [address] [place] [address] Pharmacist Internal Medicine 11/23/22 documented as of this encounter
--- OUTSIDE RECORDS SUMMARY | 2025-08-22 14:57 | XMS_ITS | Clinical Summary ---
Author Organization [facility] Address [address] [place] [phone] Care Team Providers Care Assembler Motor Vehicle Name Role Phone Unavailable Primary Care Provider [...]
--- OUTSIDE RECORDS SUMMARY | 2025-08-22 14:57 | XMS_ITS | Encounter Summary ---
Author Organization [employer] Address 75 [facility] 7t [place] [address] Care Team Providers Care Classroom Instructional Aide Name Role Phone Xuan Mckeon MD Primary Care Provider [phone] Yariel Schmid PharmD Unavailable [phone] Reason for Visit * Reason Comments Med Refill Encounter Details Date Type Department Care Team ([facility] st Contact Info) Description 02/23/2025 Refill [facility] 230 [place], [place] [phone] Xuan Mckeon MD 230 [place], [place] [phone] Other specified anxiety disorders Social History Tobacco [...] Info) Description 11/02/2025 10:30 AM EST Telemedicine [facility] [address] [place] [phone] Yariel Schmid PharmD [address] [place] [address] documented as of this encounter Goals Goal [...] documented as of this encounter Care Teams Classroom Instructional Aide Relationship Specialty Start Date End Date Xuan Mckeon MD [address] [place] [address] PCP - General Family Medicine 09/20/20 Yariel Schmid, PharmD [address] [place] [address] Pharmacist Internal Medicine 11/23/22 documented as of this encounter
--- OUTSIDE RECORDS SUMMARY | 2025-08-22 14:57 | XMS_ITS | Encounter Summary ---
Author Organization [employer] Address 75 [facility] 7t [place] [address] Care Team Providers Care Tube Man Name Role Phone Xuan Mckeon MD Primary Care Provider [phone] Yariel Schmid PharmD Unavailable [phone] Reason for Visit * Reason Comments Med Refill Encounter Details Date Type Department Care Team ([facility] st Contact Info) Description 09/08/2023 Refill [facility]INE 230 [place], [place] [phone] Xuan Mckeon MD 230 [place], [place] [phone] Other specified anxiety disorders Social History Tobacco [...] Info) Description 11/02/2025 10:30 AM EST Telemedicine [facility] MED[facility]INE [address] [place] [address] Yariel Schmid PharmD 230 [place] [address] documented as of this encounter Goals Goal [...] documented as of this encounter Care Teams Tube Man Relationship Specialty Start Date End Date Xuan Mckeon MD [address] [place] [address] PCP - General Family Medicine 09/20/20 Yariel Schmid PharmD [address] [place] [address] Pharmacist Internal Medicine 11/23/22 documented as of this encounter
--- OUTSIDE RECORDS SUMMARY | 2025-08-22 14:57 | XMS_ITS | Encounter Summary ---
Author Organization [employer] Address 75 [facility] 7t [place] [address] Care Team Providers Care Leadlighter Name Role Phone Xuan Mckeon MD Primary Care Provider [phone] Yariel Schmid PharmD Unavailable [phone] Reason for Visit * Reason Comments Med Refill Encounter Details Date Type Department Care Team ([facility] st Contact Info) Description 10/05/2023 Refill [facility] 230 [place], [place] [phone] Xuan Mckeon MD 230 [place], [place] [phone] Vitamin B12 deficiency Social History Tobacco Use [...] Info) Description 11/02/2025 10:30 AM EST Telemedicine [facility] [address] [place] [address] Yariel Schmid, Leelee [address] [place] [address] documented as of this encounter Goals Goal [...] documented as of this encounter Care Teams Leadlighter Relationship Specialty Start Date End Date Xuan Mckeon MD [address] [place] [address] PCP - General Family Medicine 09/20/20 Yariel Schmid, CristóbalD [address] [place] [address] Pharmacist Internal Medicine 11/23/22 documented as of this encounter
--- OUTSIDE RECORDS SUMMARY | 2025-08-22 14:57 | XMS_ITS | Encounter Summary ---
Author Organization [employer] Address [address] [facility] [address] 7[address] [place] [address] Care Team Providers Care Fine Sander Name Role Phone Xuan Mckeon MD Primary Care Provider [phone] Yariel Schmid PharmD Unavailable [phone] Encounter Details Date Type Department Care Team ([facility] st Contact Info) Description 10/22/2023 Orders Only [facility] 230 [place], [place] [phone] Xuan Mckeon MD 230 [place], [place] [phone] Social History Tobacco Use Types Packs/Day Years [...] Info) Description 11/02/2025 10:30 AM EST Telemedicine [facility] 230 [place] [address] Yariel Schmid PharmD 230 [place] [address] documented as of this encounter Goals Goal [...] documented as of this encounter Care Teams Fine Sander Relationship Specialty Start Date End Date Xuan Mckeon MD [address] [place] [address] PCP - General Family Medicine 09/20/20 Yariel Schmid, CristóbalD [address] [place] [address] Pharmacist Internal Medicine 11/23/22 documented as of this encounter
--- OUTSIDE RECORDS SUMMARY | 2025-08-22 14:57 | XMS_ITS | Encounter Summary ---
Author Organization [employer] Address 75 [facility] 7t [place] [address] Care Team Providers Care Hot Mill Operator Name Role Phone Xuan Mckeon MD Primary Care Provider [phone] Yariel Schmid PharmD Unavailable [phone] Reason for Visit * Reason Comments Med Refill Encounter Details Date Type Department Care Team ([facility] st Contact Info) Description 08/17/2025 Refill [facility] 230 [place], [place] [phone] Xuan Mckeon MD 230 [place], [place] [phone] Other specified anxiety disorders Social History Tobacco [...] Info) Description 11/02/2025 10:30 AM EST Telemedicine [facility] [address] [place] [address] Yariel Schmid, CristóbalD 230 [place] [address] documented as of this encounter Goals Goal [...] documented as of this encounter Care Teams Hot Mill Operator Relationship Specialty Start Date End Date Xuan Mckeon MD 230 [place] [address] PCP - General Family Medicine 09/20/20 Yariel Schmid, CristóbalD 230 [place] [address] Pharmacist Internal Medicine 11/23/22 documented as of this encounter
--- OUTSIDE RECORDS SUMMARY | 2025-08-22 14:58 | XMS_ITS | Encounter Summary ---
Author Organization [employer] [facility] Address [address] [place] [address] 7t [place] [address] Care Team Providers Care Senior Windows Systems Administrator Name Role Phone Xuan Mckeon MD Primary Care Provider [phone] Yariel Schmid PharmD Unavailable [phone] Reason for Visit * Reason Comments Med Refill Encounter Details Date Type Department Care Team (Late Contact Info) Description 04/07/2023 Refill [facility] MED[facility]INE [address] [place] [address] [phone] Xuan Mckeon MD [address] [place] [address] [phone] Vitamin B12 deficiency Social History Tobacco Use [...] AM EST Telemedicine [facility]INE 230 [place], [place] [phone] Yariel Schmid, PharmD 230 [place], [place] [phone] documented as of this encounter Goals Goal [...] as of this encounter Care Teams Senior Windows Systems Administrator Relationship Specialty Start Date End Date Xuan Mckeon MD 230 [place] [address] PCP - General Family Medicine 09/20/20 Yariel Schmid, PharmD 230 [place] [address] Pharmacist Internal Medicine 11/23/22 documented as of this encounter
--- OUTSIDE RECORDS SUMMARY | 2025-08-22 14:58 | XMS_ITS | Encounter Summary ---
Author Organization [employer] [facility] Address 75 [facility] 7t [place] [address] Care Team Providers Care Hearing And Speech Assistant Name Role Phone Xuan Mckeon MD Primary Care Provider [phone] Yariel Schmid PharmD Unavailable [phone] Encounter Details Date Type Department Care Team (Latest Contact Info) Description 01/23/2022 Abstract [facility] CONVERSIONS Dental, Provider, DDS Social History [...] EST Telemedicine [facility] 230 [place] [address] Yariel Schmid PharmD 230 [place] [address] documented as of this encounter Visit Diagnoses Not on filedocumented in this encounter Care Teams Hearing And Speech Assistant Relationship Specialty Start Date End Date Xuan Mckeon MD 230 [place] [address] PCP - General Family Medicine 09/20/20 Yariel Schmid, CristóbalD 230 [place] [address] Pharmacist Internal Medicine 11/23/22 documented as of this encounter
--- OUTSIDE RECORDS SUMMARY | 2025-08-22 14:58 | XMS_ITS | Encounter Summary ---
Author Organization [employer] Address 75 [facility] 7t [place] [address] Care Team Providers Care Insulation Worker Name Role Phone Xuan Mckeon MD Primary Care Provider [phone] Yariel Schmid PharmD Unavailable [phone] Encounter Details Date Type Department Care Team (Late st Contact Info) Description 09/23/2022 Orders Only [facility] [address] [place] [address] Shannon Rich LPN Social History Tobacco Use [...] 11/02/2025 10:30 AM EST Telemedicine [facility] MEDICINE [address] [place] [address] Yariel Schmid, PharmD [address] [place] [address] documented as of this encounter Visit Diagnoses Not on filedocumented in this encounter Care Teams Insulation Worker Relationship Specialty Start Date End Date Xuan Mckeon MD [address] [place] [address] PCP - General Family Medicine 09/20/20 Yariel Schmid, PharmD [address] [place] [address] Pharmacist Internal Medicine 11/23/22 documented as of this encounter
--- OUTSIDE RECORDS SUMMARY | 2025-08-22 14:58 | XMS_ITS | Encounter Summary ---
Author Organization [employer] Address 75 [facility] 7t [place] [address] Care Team Providers Care Airplane Designer Name Role Phone Xuan Mckeon MD Primary Care Provider [phone] Yariel Schmid PharmD Unavailable [phone] Reason for Visit * Reason Comments Med Refill Encounter Details Date Type Department Care Team ([facility] Contact Info) Description 10/06/2022 Refill [facility]S [address] [place], [place] [phone] Ofelia Akhtar ANP 230 [place], [place] [phone] Other specified anxiety disorders Social History Tobacco [...] Upcoming Encounters Date Type Department Care Team ([facility] Contact Info) Description 11/02/2025 10:30 AM EST Telemedicine [facility] MEDICINE 230 [place], [place] [phone] Yariel Schmid, PharmD 230 [place] [address] documented as of this encounter Visit Diagnoses Diagnosis Other specified anxiety disorders documented in this encounter Care Teams Airplane Designer Relationship Specialty Start Date End Date Xuan Mckeon MD [address] [place] [address] PCP - General Family Medicine 09/20/20 Yariel Schmid, Leelee [address] [place] [address] Pharmacist Internal Medicine 11/23/22 documented as of this encounter
--- OUTSIDE RECORDS SUMMARY | 2025-08-22 14:58 | XMS_ITS | Clinical Summary ---
Author Organization [employer] Address [address] [facility] [address] [place] [address] Care Team Providers Care Garment Parts Cutter Hand Name Role Phone Xuan Mckeon MD Primary Care Provider [phone] Yariel Schmid PharmD Unavailable [phone] Allergies Active Allergy Reactions Criticality Noted Date [...] replace cap. 16 g 2 06/11/20 25 026 Active cetirizine (ZyrTEC) 10 MG tabletIndicatio ns:Fluid level behind tympanic membrane of right ear Take 1 tablet (10 mg) by mouth Once per day. 30 tablet 11 5 8:46 AM EST 06/11/20 25 026 Active metoprolol succinate XL (Toprol-XL) 100 MG [...] 5 5 1:46 PM EST 03/06/20 25 025 Discontinued Active Problems Problem Noted Date Diagnosed Date Asthma 06/28/2025 Assessment & Plan (06/28/2025 1:28 PM EDT): - multiple ED visits and documented wheezing - will need to confirm with PFT - she dislikes albuterol due to tachycardia - start budesonide / formoterol (Symbicort) as SMART - upcoming appointment with lead software architect and PFT - her symptoms seemed to [...] treatment. - Upcoming appointment for PFT and lead software architect Assessment & Plan (05/26/2025 6:46 AM EDT): - Recently seen in the emergency department and was prescribed albuterol - Will evaluate with PFT since patient has severe allergy, and may have asthma - Previously seeing child life specialist. Patient may benefit from biologic medication. Will refer her back to specialist Chronic urticaria 05/26/2025 Assessment & Plan (06/28/2025 1:28 PM EDT): - Frequent allergic reaction - Continue cetirizine - Previously tried loratadine and fexofenadine - Continue judicious use of diphenhydramine as needed - Previously seen by child life specialist, but was unable to complete allergy testing - Referred back to child life specialist to assess if patient is a candidate for biologics Assessment & Plan (05/26/2025 6:48 AM EDT): - Frequent allergic reaction - Continue cetirizine - Previously tried loratadine and fexofenadine - Continue judicious use of diphenhydramine as needed - Previously seen by child life specialist, but was unable to complete allergy [...] has already been seen and treated by child life specialist. She states she could not complete [...] has already been seen and treated by child life specialist. She states she could not complete [...] has already been seen and treated by child life specialist. She states she could not complete [...] has already been seen and treated by child life specialist. She states she could not complete [...] (06/28/2025 4:54 AM EDT): - following with casualty claim adjuster - prescribed amlodipine by casualty claim adjuster, but patient does not want to take Assessment & Plan (12/17/2022 11:27 AM EDT): Seen by Solution Design Engineer, Dr. Karimi, on 11/26/22. Reported exertional Cheat [...] ACC/AHA -BP at goal today -Co-managed with casualty claim adjuster, hatchery helper, and PharmD. -pt advised to continue checking BP at home -casualty claim adjuster: Dr. Karimi, last visit in 04/23/2025; exertional dyspnea. Possible evaluation with CTA or coronary angiography. -normal Holter monitor and echo -continue working on lifestyle modifications -continue losartan 100 mg daily -continue metoprolol succinate 100 mg daily - Continue spironolactone - hctz 25-25 mg daily (history of hypokalemia on KCl supplement) as prescribed by hatchery helper Previous Treatment: -discontinued HCTZ and replaced chlorthalidone. -discontinued Amlodipine d/t leg swelling (recently prescribed by casualty claim adjuster again, but patient has not started it yet) Assessment & Plan (05/26/2025 6:43 AM EDT): -Goal BP < 130/80 per ACC/AHA -BP at goal today -Co-managed with casualty claim adjuster, hatchery helper, and PharmD. -pt advised to continue checking BP at home -casualty claim adjuster: Dr. Karimi, last visit in 04/23/2025; exertional dyspnea. Possible evaluation with CTA or coronary angiography. -normal Holter monitor and echo -continue working on lifestyle modifications -continue losartan 100 mg daily -continue metoprolol succinate 100 mg daily - Continue spironolactone - hctz 25-25 mg daily (history of hypokalemia on KCl supplement) as prescribed by hatchery helper Previous Treatment: -discontinued HCTZ and replaced chlorthalidone. -discontinued Amlodipine d/t leg swelling (recently prescribed by casualty claim adjuster again, but patient has not started it yet) Assessment & Plan (01/14/2025 5:13 PM EDT): -Goal BP <140/90 per JNC-8, < 130/80 per ACC/AHA -BP not at goal today -Co-managed with casualty claim adjuster and PharmD. -pt advised to continue checking BP at home -casualty claim adjuster: Dr. Karimi, last visit in 12/06/24; exertional dyspnea. Possible evaluation with CTA or coronary angiography -normal Holter monitor and echo -continue working on lifestyle modifications -continue losartan 100 mg daily -continue metoprolol succinate 100 mg daily - start spironolactone - hctz 25-25 mg daily (history of hypokalemia on KCl supplement) as prescribed by hatchery helper Previous Treatment: -discontinued HCTZ and replaced chlorthalidone. [...] -BP not at goal today -Co-managed with casualty claim adjuster and PharmD. -pt advised to continue checking BP at home -casualty claim adjuster: Dr. Karimi, last visit in 11/26/22; exertional [...] -BP not at goal today -Co-managed with casualty claim adjuster and PharmD. -pt advised to continue checking BP at home -casualty claim adjuster: Dr. Karimi, last visit in 11/26/22; exertional [...] -BP not at goal today -Co-managed with casualty claim adjuster and PharmD. -pt advised to continue checking BP at home -casualty claim adjuster: Dr. Karimi, last visit in 11/26/22; exertional [...] < 130/80 per ACC/AHA - co-managed with casualty claim adjuster and PharmD. -pt advised to continue checking BP at home -casualty claim adjuster: Dr. Karimi, last visit in 11/26/22; exertional [...] < 130/80 per ACC/AHA - co-managed with casualty claim adjuster and PharmD. -pt advised to continue checking BP at home -casualty claim adjuster: Dr. Karimi, last visit in 11/26/22; exertional [...] advised to continue checking BP at home -casualty claim adjuster: Dr. Karimi, last visit in 11/26/22; exertional [...] advised to continue checking BP at home -casualty claim adjuster: Dr. Karimi, last visit in 07/06/22; concerns [...] on 07/03/22 - Started on Plavix by casualty claim adjuster; ASA was discontinued due to GI bleed - Continue statin, clopidogrel, and losartan - Continue working on lifestyle modification / risk factor management Assessment & Plan (05/15/2025 12:44 PM EDT): - seen in ED on 07/03/22 - Started on Plavix by casualty claim adjuster; ASA was discontinued due to GI bleed - Continue statin, clopidogrel, and losartan - Continue working on lifestyle modification / risk factor management Assessment & Plan (01/14/2025 5:04 PM EDT): - seen in ED on 07/03/22 - Started on Plavix by casualty claim adjuster; ASA was discontinued due to GI bleed - Continue statin, clopidogrel, and losartan - Continue working on lifestyle modification / risk factor management Assessment & Plan (05/30/2024 11:03 AM EDT): - seen in ED on 07/03/22 - Started on Plavix by casualty claim adjuster; ASA was discontinued due to GI bleed - Continue statin, clopidogrel, and losartan - Continue working on lifestyle modification / risk factor management Assessment & Plan (11/30/2023 4:38 AM EDT): - seen in ED on 07/03/22 - Started on Plavix by casualty claim adjuster; ASA was discontinued due to GI bleed - Continue statin, clopidogrel, and losartan - Continue working on lifestyle modification / risk factor management Assessment & Plan (12/17/2022 11:23 AM EDT): - seen in ED on 07/03/22 - Started on Plavix by casualty claim adjuster; ASA was discontinued due to GI bleed - Continue statin, clopidogrel, and losartan - Continue working on lifestyle modification / risk factor management Assessment & Plan (10/04/2022 5:51 AM EST): - seen in ED on 07/03/22 - Started on Plavix by casualty claim adjuster; ASA was discontinued due to GI bleed [...] left adrenal cyst - repeating CT by hatchery helper Assessment & Plan (06/14/2023 3:20 PM EDT): [...] describes 3 episodes, last on treated at [facility] on 04/2012 Assessment & Plan (07/02/2025 9:41 [...] Type Department Care Team Description 08/17/2025 Refill [facility] [address] [facility] [place] [address] Xuan Mckeon MD Other specified anxiety disorders 08/09/2025 10:30 AM EST Telemedicine [facility] [address] [facility] [place] [address] Yariel Schmid, CristóbalD Primary hypertension (Primary Dx); Type 2 diabetes mellitus without complication, without long-term current use of insulin (HCC) 07/19/2025 Refill [facility] [address] [facility] [place] [address] Xuan Mckeon MD 07/10/2025 Telephone [facility] [address] [place] [address] Carla Judge MA 07/02/2025 Results Follow-Up [facility] [address] [place] [address] Xuan Mckeon MD T-SPOT .TB, Hemoglobin A1c, Comprehensive Metabolic Panel, Lipid Panel with Reflex to Direct LDL 06/28/2025 9:00 AM EDT Office Visit [facility] [address] [facility] [place] [address] Xuan Mckeon MD Varicose veins of both [...] Generalized anxiety disorder 06/28/2025 Travel 06/27/[address] [address] Xuan Mckeon MD chart prep 06/24/[address] [address] Yariel Schmid PharmD Primary hypertension 06/14/2025 Orders Only [address] [address] Xuan Mckeon MD Primary hypertension (Primary Dx); Type 2 diabetes mellitus without complication, without long-term current use of insulin ([facility]) 06/13/2025 10:30 AM EDT Telemedicine [address] [address] Yariel Schmid PharmD Primary hypertension (Primary Dx); Type 2 diabetes mellitus without complication, without long-term current use of insulin ([facility]) 06/11/2025 1:00 PM EDT Office Visit [facility] [address] [place] [phone] Willow Wilson MD Allergic reaction, sequela (Primary Dx); Diabetic polyneuropathy associated with type 2 diabetes mellitus (HCC); Bronchitis; Fluid level behind tympanic membrane of right ear 06/11/2025 Travel 05/30/2025 Travel 05/28/[address] [address] Xuan Mckeon MD ER Follow-up; Medication Question 05/28/2025 Refill [facility] [address] [place], [place] [phone] Xuan Mckeon MD 05/23/2025 Orders Only GENERIC [...] Info) Description 11/02/2025 10:30 AM EST Telemedicine [facility] [address] [place] [address] Yariel Schmid, PharmD [address] [place] [address] Health Maintenance Due Date Last Done Comments [...] SDOH Screening 05/15/2026 05/15/2025 Mammogram 2026 2024, 032 12/2021, 05/19/2019, Additional history exists Diabetes: Foot Exam 06/28/2026 06/28/2025, 06/28/2025, 06/28/2025, Additional history exists Lipid Panel 06/28/2026 06/28/2025, 030 01/2025, 06/08/2024, Additional history exists Tobacco Screening [...] manage their type 2 diabetes No Shannon Guteirrez, PharmD Patient has chronic kidney disease Care Plan Patient has chronic kidney disease No Shannon Gutierrez, PharmD Help patients manage their type 2 diabetes Care Plan Help patients manage their type 2 diabetes No Shannon Gutierrez, PharmD Patient has diabetic neuropathy Care Plan Patient has diabetic neuropathy No Shannon Gutierrez, PharmD Weekly blood pressure task Care Plan Weekly blood pressure task No GutierrezShannon salas, PharmD Weekly blood pressure task Care Plan Weekly blood pressure task No GutierrezNess salasfer, PharmD Patient has chronic kidney disease Care Plan Patient has chronic kidney disease No GutierrezNess salasfer, PharmD Patient has chronic kidney disease Care Plan Patient has chronic kidney disease No GutierrezNess salasfer, PharmD Patient has diabetic neuropathy Care Plan Patient has diabetic neuropathy No GutierrezNess salasfer, PharmD Patient has diabetic neuropathy Care Plan [...] has chronic kidney disease No Yariel Schmid PharmSydnee Patient has chronic kidney disease Care Plan [...] of2 resultswithin the time period is included. [facility] T Spot TB Negative Negative [facility] Comment:A negative test resu lt [...] as aquantitative test. TS PANEL A 0 [facility] TS PANEL B 1 [facility] Negative Control Passed [facility] Positive Control Passed [facility] Comment:For additional infor mation, please refer tohttp://education.Abakus/faq/DYQ685(This link is being provided for informational/educational purposes only.)THIS TEST WAS PERFORMED AT:[employer] [id number] [place] [phone] ZAPATA MD,PHD 06/28/2025 10:2 2 AM EDT 06/28/2025 11:21 AM EDT us Xuan Mckeon MD LAB BLOOD ORDERABLES Final Resul t [facility] [address] [place] [phone] * (ABNORMAL) Lipid Panel with Reflex to Direct LDL (06/28/2025 10:22 AM EDT) Triglycerides 375(H) <150 mg/dL [facility] Comment:Desirable Triglyceri de: less than 150 mg/dLBorderline High Triglyceride 150-199 mg/dLHigh Triglyceride: 200-499 mg/dLVery High Triglyceride: greater than or equal to 5OO mg/dL Cholesterol 202(H) <200 mg/dL [facility] Comment:Desirable Cholestero l: less than 200 mg/dLBorderline High Cholesterol: 200-239 mg/dLHigh Cholesterol: greater than 239 mg/dL LDL Cholesterol Calculated 88 <100 mg/dL [facility] Comment:Desirable LDL: less than 100 mg/dLNear Optimal/Above Optimal LDL: 110- 129 mg/dLBorderline High LDL: 130-159 mg/dLHigh LDL: 160-189 mg/dLVery High LDL: greater than or equal to 190 mg/dL HDL Cholesterol 39(L) >40 mg/dL [facility] Comment:Desirable HDL: great er than 40 mg/dL Note: This HDL assay may give artificially low results in patients with liver disease. Blood 06/28/2025 10:2 2 AM EDT 06/28/2025 11:21 AM EDT us Xuan Mckeon MD LAB BLOOD ORDERABLES Final Resul t Performing Organization Address City/[facility]/ZIP Co de Phone Number [facility] [address] [place] [phone] * (ABNORMAL) Hemoglobin A1c (06/28/2025 10:22 AM EDT) Hemoglobin A1c 6.9(H) <6.0 % [facility] Comment:Hemoglobin A1C Refer ence Range Adults: 4.8 - 6.0 % Non diabetic: < 6.0 % Goal: < 7.0 %Additional Action Suggested: > 8.0 %Note: Hemoglobin A1c results are invalid for patients with abnormal amounts of HbF. Blood transfusions may impact the HbA1c concentration in the patient sample. Estimated Average Glucose 151 mg/dL [facility] Comment:eAG = Estimated ave rage glucose which is %A1C expressed asaverage glucose, using the formula of the [id number] Glucose study (ADAG), Diabetes Care, Vol.31,#8,Apr. 2007 Blood Venous blood specimen / Unknown 06/28/2025 10:22 AM EDT 06/28/2025 11:21 AM EDT us Xuan Mckeon MD LAB BLOOD ORDERABLES Final Resul t Performing Organization Address [facility] [place]/[facility]/ZIP Co de Phone Number [facility] [address] [place] [phone] * (ABNORMAL) Comprehensive Metabolic Panel (06/28/2025 10:22 AM EDT) Sodium 135 135 - 145 mmol/L [facility] Potassium 4.1 3.3 - 5.1 mmol/L [facility] Chloride 101 96 - 108 mmol/L [facility] Carbon Dioxide 28 22 - 29 mmol/L [facility] Anion Gap 10(L) 12 - 20 [facility] Urea Nitrogen (BUN) 17(H) 9 - 16 mg/dL [facility] Creatinine, Serum 0.91 0.5 - 1.4 mg/dL [facility] Estimated Glomerular Filt Rate >60 [facility] Comment:Chronic Kidney Disea se: Estimated GFR < 60 mL/min/1.28h5Nwsjgj Kidney Disease: Estimated GFR < 15 mL/min/1.73m2 Glucose 118(H) 60 - 115 mg/dL [facility] Calcium 9.4 8.4 - 10.2 mg/dL [facility] Bilirubin, Total 0.7 0.0 - 1.0 mg/dL [facility] Aspartate Amino Transferase 26 5 - 31 U/L [facility] Alanine Aminotransferase 20 0 - 31 U/L [facility] Total Protein 7.1 6.5 - 8.0 g/dL [facility] Albumin Level 4.7 3.5 - 5.0 g/dL [facility] Alkaline Phosphatase 53 39 - 117 U/L [facility] Blood Venous blood specimen / Unknown 06/28/2025 10:22 AM EDT 06/28/2025 11:21 AM EDT us Xuan Mckeon MD LAB BLOOD ORDERABLES Final Resul t [facility] [address] [place] [phone] * (ABNORMAL) Urinalysis Complete (05/23/2025 8:42 AM EDT) Color Urine Yellow [facility] Appearance Urine Cloudy [facility] PH 6.0 5.0 - 9.0 [facility] Glucose Urine UA Negative Negative mg/dL [facility] Urine Blood Negative Negative [facility] Specific Walls - Urine 1.020 1.005 - 1.025 [facility] Urine Protein Negative Neg-Trace mg/dL [facility] Urine Ketones Trace Negative mg/dL [facility] Nitrite Urine Negative Negative [facility] Leukocyte Esterase Urine Small (1+)(A) Negative [facility] RBC Urine 0-2 0 - 2 /HPF [facility] Urine WBC 0-5 0 - 5 /HPF [facility] Urine Squamous Epithelial Cell 3-5 0 - 2 /HPF [facility] Urine Bacteria 2+ None Seen [facility] Hyaline Casts, Urine 0-2 0 - 2 /LPF [facility] 05/23/2025 8:42 AM EDT 05/23/2025 11:14 AM EDT us Generic External Data Provider LAB URINE ORDERAB LES Final Result [facility] [address] [place] [phone] * (ABNORMAL) Basic Metabolic Panel (05/23/2025 8:42 AM EDT) Sodium 134(L) 135 - 145 mmol/L [facility] Potassium 4.2 3.3 - 5.1 mmol/L [facility] Chloride 98 96 - 108 mmol/L [facility] Carbon Dioxide 28 22 - 29 mmol/L [facility] Anion Gap 12 12 - 20 [facility] Urea Nitrogen (BUN) 13 9 - 16 mg/dL [facility] Creatinine, Serum 0.79 0.5 - 1.4 mg/dL [facility] Estimated Glomerular Filt Rate >60 [facility] Comment:Chronic Kidney Disea se: Estimated GFR < 60 mL/min/1.13m3Ihyfsx Kidney Disease: Estimated GFR < 15 mL/min/1.73m2 Glucose 194(H) 60 - 115 mg/dL [facility] Calcium 9.5 8.4 - 10.2 mg/dL [facility] 05/23/2025 8:42 AM EDT 05/23/2025 11:14 AM EDT us Generic External Data Provider LAB BLOOD ORDERAB LES Final Result Performing Organization Address [facility] [place]/[facility] Co de Phone Number [facility] [address] [place] [phone] * Albumin, Random Urine W/Creatinine (11/08/2024 9:12 AM EST) Creatinine, Urine 161.01 mg/dL [facility] Microalbumin Urine 6.0 mg/L [facility] Microalbum Creatinine Ratio Ur 3.7 <30 ug/mg cr [facility] Comment:Albumin/Creatinine R atio Reference Ranges: Normal: < 30 ug/mg creatinine Microalbuminuria: 30 - 300 ug/mg creatinineClinical Albuminuria: > 300 ug/mg creatinine Urine 11/08/2024 9:12 AM EST 11/08/2024 11:25 AM EST us Xuan Mckeon MD LAB URINE ORDERABLES Final Resul t Performing Organization Address [facility] [place]/[facility] Co de Phone Number [facility] [address] [place] [phone] * BI Mammogram Screening Tomosynthesis Bilateral (2024 9:15 AM EDT) Anatomical Region Laterality Modality Breast Bilateral Mammography 2024 9:15 AM EDT Narrative 06/15/2024 7:13 PM EDT [facility] [address] [place] [address] Mammography Report Signed Patient: Che Person MR #: [id number] : 1950 Acct:[id number] Age/Sex: 74 / F ADM Date: 06/06/24 Loc: MAMMO Attending Dr: Xuan Mckeon MD Ordering Physician: Xuan Mckeon MD Results: 1Negative Date of Service: 06/06/24 Follow Up: 1 Year From Orig ina Mammogram Procedure(s): MM tomosynthesis screening BI Accession Number(s): [id number] cc: Xuan Mckeon MD EXAMINATION: MM SCREENING [...] in OV> 06/15/241909 DD/ 4 TD/TT: 06/06/24919 Lumber Trimmer: Procedure Note Donotuseinterpreter, Image - 06/15/2024 [place] [facility] [address] [place], [place] [address] Mammography Report Signed Patient: Jamal PersonPanteraR #: [id number] : 1950cct:[id number] Age/Sex: 74 / FADM Date: 06/06/24 Loc: [facility] Attending Dr: Xuan Mckeon MD Ordering Physician: Xuan Mckeon MDResults: 1Negative Date of Service: 06/06/24Follow Up: 1 Year From [facility] ina Mammogram Procedure(s): MM tomosynthesis screening BI Accession Number(s): [id number] cc: Xuan Mckeon MD EXAMINATION: MM SCREENING [...] in OV> 06/15/241909 DD/ 4 TD/TT: 06/06/24919 Lumber Trimmer: Xuan Mckeon MD [facility] PROCEDURES Edited Result - Final * FIT [...] HEPATITIS C ANTIBODY NON-REACT ADAMA NON-REACT ADAMA [facility] INDEX 0.01 <1.00 [facility] Comment: HCV antibody was non-reactive. There is no laboratory evidence of HCV infection. In most cases, no further action is required. However, if recent HCV exposure is suspected, a test for HCV RNA (test code 73029) is suggested. For additional information please refer to http://education.Abakus/faq/KLS80r9 (This link is being provided for informational/ educational purposes only.) 10/23/2020 8:55 AM EST Xuan Mckeon MD HISTORICAL/NON ORDERABLE LABS Fi nal Result Performing Organization Address City/State/[facility] Co de Phone Number [facility] [address] from Last 3 Months or Most [...] 08/17/2025 Patient has diabetic neuropathy 08/17/2025 Insurance [facility] USP OPTIONS (O D-SNP) [facility] Care Teams Garment [employer] Cutter Hand Relationship Specialty Start Date End Date Xuan Mckeon MD [address] [place] [address] PCP - General Family Medicine 09/20/20 Yariel Schmid, PharmD [address] [place] [phone] Pharmacist Internal Medicine 11/23/22
--- OUTSIDE RECORDS SUMMARY | 2025-08-22 14:58 | XMS_ITS | Encounter Summary ---
Author Organization [employer] Address 75 [facility] 7t [place] [address] Care Team Providers Care Strategic Accounts Manager Name Role Phone Xuan Mckeon MD Primary Care Provider [phone] Yariel Schmid PharmD Unavailable [phone] Reason for Visit * Reason Comments Med Refill Encounter Details Date Type Department Care Team (Late Contact Info) Description 03/18/2023 Refill [facility] [place] [address] [place], [place] [phone] Xuan Mckeon MD [address] [place], [place] [phone] Other specified anxiety disorders Social History Tobacco [...] Description 11/02/2025 10:30 AM EST Telemedicine [facility] MED[facility] [address] [place], [place] [phone] Yariel Schmid, PharmD [address] [place], [place] [phone] documented as of this encounter Goals Goal [...] documented as of this encounter Care Teams Strategic Accounts Manager Relationship Specialty Start Date End Date Xuan Mckeon MD [address] [place] [address] PCP - General Family Medicine 09/20/20 Yariel Schmid, PharmD [address] [place] [address] Pharmacist Internal Medicine 11/23/22 documented as of this encounter
--- OUTSIDE RECORDS SUMMARY | 2025-08-22 14:58 | XMS_ITS | Encounter Summary ---
Author Organization [employer] Address [address] [facility] [address] 7t [place] [address] Care Team Providers Care Open Claims Representative Name Role Phone Xuan Mckeon MD Primary Care Provider [phone] Yariel Schmid PharmD Unavailable [phone] Encounter Details Date Type Department Care Team ([facility] st Contact Info) Description 09/20/2024 Orders Only [facility] MED[facility]INE [address] [place], [place] [phone] Xuan Mckeon MD [address] [place], [place] [phone] Left lower quadrant abdominal pain (Primary Dx); [...] Info) Description 11/02/2025 10:30 AM EST Telemedicine [facility] MED[facility]INE [address] [place] [address] Yariel Schmid, PharmD [address] [place] [address] documented as of this encounter Goals Goal [...] Sedimentation Rate 25(H) 0 - 20 MM/HR [facility] Comment:Patients with polycy themia and many hemoglobin abnormalitiesmay have depressed sed rates whereas patients with anemiamay have elevated sed rates. Blood Venous blood specimen / Unknown 09/21/2024 9:16 AM EST 09/21/2024 11:12 AM EST Xuan Mckeon MD LAB BLOOD ORDERABLES Final Resul t Performing Organization Address [facility] Co de Phone Number [facility] [address] [place] [address] [phone] * (ABNORMAL) C-reactive Protein (09/21/2024 9:16 AM EST) [facility] C Reactive Protein 0.96(H) < or = 0.50 mg/dL [facility] Blood Venous blood specimen / Unknown 09/21/2024 9:16 AM EST 09/21/2024 11:12 AM EST Xuan Mckeon MD LAB BLOOD ORDERABLES Final Resul t Performing Organization Address [facility] de Phone Number [facility] [address] [place] [phone] * (ABNORMAL) CBC auto differential (09/21/2024 9:16 AM EST) Pathologist [facility] White Blood Count 6.2 4.8 - 10.8 X10*3/uL [facility] Red Blood Count 3.99(L) 4.20 - 5.50 X10*6/uL [facility] Hemoglobin 12.4 12.0 - 16.0 g/dl [facility] Hematocrit 36.3(L) 37.0 - 47.0 % [facility] Mean Corpuscular Volume 91.0 80.0 - 98.0 fL [facility] Mean Corpuscular Hemoglobin 31.1 27.0 - 33.0 pg [facility] Mean Corpuscular HGB Conc 34.2 31.0 - 35.0 g/dl [facility] Red Cell Distribution Width 12.5 11.0 - 16.0 % [facility] Platelet Count 288 160 - 400 X10*3/uL [facility] Mean Platelet Volume 10.5 9.4 - 12.3 fL [facility] Neutrophils Percent Auto 70.5 45 - 73 % [facility] Imm Gran Pct Auto 0.3 0.0 - 0.4 % [facility] Lymphocytes Percent Auto 20.0 20 - 40 % [facility] Monocytes Percent Auto 7.1 2 - 11 % [facility] Eosinophils Percent Auto 1.6 0 - 4 % [facility] Basophils Percent Auto 0.5 0 - 2 % [facility] NRBC Pct Auto 0.0 0.0 - 0.2 /100WBC [facility] Neutrophils Absolute Auto 4.3 2.0 - 8.3 x10*3/uL [facility] Imm Gran Abs Auto 0.02 0.00 - 0.03 X10*3/uL [facility] Lymphocytes Absolute Auto 1.2 1.2 - 4.9 X10*3/uL [facility] Monocytes Absolute Auto 0.4 0.1 - 1.2 X10*3/uL [facility] Eosinophils Absolute Auto 0.1 0.0 - 0.4 X10*3/uL [facility] Basophils Absolute Auto 0.0 0.0 - 0.2 X10*3/uL [facility] NRBC Abs Auto 0.000 0.0 - 0.012 X10*3/uL [facility] Blood Venous blood specimen / Unknown 09/21/2024 9:16 AM EST 09/21/2024 11:12 AM EST us Xuan Mckeon MD LAB BLOOD ORDERABLES Final Resul t [facility] [address] [place] [phone] [phone] documented in this encounter Visit Diagnoses Diagnosis Left lower quadrant abdominal pain- Primary Diverticulitis Diverticulitis of colon (without mention of hemorrhage) documented in this encounter Additional Health Concerns Assessment Noted Time PHQ-9 Depression Total Score: 11 024 10:30 AM EDT documented as of this encounter Care Teams Open Claims Representative Relationship Specialty Start Date End Date Xuan Mckeon MD [address] [place] [address] PCP - General Family Medicine 09/20/20 Yariel Schmid, CristóbalD [address] [place] [address] Pharmacist Internal Medicine 11/23/22 documented as of this encounter
--- OUTSIDE RECORDS SUMMARY | 2025-08-22 14:58 | XMS_ITS | Encounter Summary ---
Author Organization [employer] Address 75 [facility] 7t [place] [address] Care Team Providers Care Hole Filler Name Role Phone Xuan Mckeon MD Primary Care Provider [phone] Yariel Schmid PharmD Unavailable [phone] Reason for Referral * Consultation (Routine) - Closed Specialty Diagnoses / Procedures Referred By Contac t Referred To Contact Pharmacy Diagnoses Primary hypertension Type 2 diabetes mellitus without complication, without long-term current use of insulin ([facility]) Xuan Mckeon MD [address] [place] [phone] Phone: tel: fax: Referral ID Status Reason Start Date Expiration Date V isits Requested Visits Authorized [id number] Closed Consult and Treat 07/18/2024 07/18/2025 6 6 Encounter Details Date Type Department Care Team (Late st Contact Info) Description 07/18/2024 Orders Only [facility] MEDICINE [address] [place] [address] [phone] Xuan Mckeon MD [address] [place] [address] [phone] Primary hypertension (Primary Dx); Type 2 diabetes [...] Info) Description 11/02/2025 10:30 AM EST Telemedicine [facility] MED[facility]INE [address] [place] [address] Yariel Schmid, PharmD [address] [place] [address] Scheduled Referrals Name Type Priority Associated Diagnoses Orde r Schedule Referral to Pharmacy CDTM Outpatient Referral Routine Primary hypertension Type 2 diabetes mellitus without complication, without long-term current use of insulin ([facility]) Ordered: 07/18/2024 documented as of this encounter Goals Goal Patient Goal Type Associated Problems Recent Progress Patient-Stated? Author Blood Pressure < 140/90 Blood Pressure 161/79( 025 11:01 AM EST) No Yariel Schmid, PharmD documented as of this encounter Visit Diagnoses Diagnosis Primary hypertension- Primary Unspecified essential hypertension Type 2 diabetes mellitus without complication, without long-term current use of insulin ([facility]) documented in this encounter Additional Health Concerns Assessment Noted Time PHQ-9 Depression Total Score: 11 024 10:30 AM EDT documented as of this encounter Care Teams Hole Filler Relationship Specialty Start Date End Date Xuan Mckeon MD [address] [place] [address] PCP - General Family Medicine 09/20/20 Yariel Schmid, PharmD 230 [place] [address] Pharmacist Internal Medicine 11/23/22 documented as of this encounter
--- OUTSIDE RECORDS SUMMARY | 2025-08-22 14:59 | XMS_ITS | Encounter Summary ---
Author Organization [employer] Address 75 [facility] 7t [place] [address] Care Team Providers Care Hay Chopper Name Role Phone Xuan Mckeon MD Primary Care Provider [phone] Yariel Schmid PharmD Unavailable [phone] Encounter Details Date Type Department Care Team (Latest Contact Info) Description 07/02/2025 Results Follow-Up [facility] MEDICINE 230 [place], [place] [phone] Xuan Mckeon MD [address] [place], [place] [phone] T-SPOT .TB, Hemoglobin A1c, Comprehensive Metabolic Panel, [...] 11/02/2025 10:30 AM EST Telemedicine [facility] MEDICINE [address] [place] [phone] Yariel Schmid PharmD [address] [place] [address] documented as of this encounter Goals Goal [...] documented as of this encounter Care Teams Hay Chopper Relationship Specialty Start Date End Date Xuan Mckeon MD [address] [place] [address] PCP - General Family Medicine 09/20/20 Yariel Schmid PharmD [address] [place] [address] Pharmacist Internal Medicine 11/23/22 documented as of this encounter
--- OUTSIDE RECORDS SUMMARY | 2025-08-22 14:59 | XMS_ITS | Encounter Summary ---
Author Organization [facility] Address 75 [facility] 7t [place] [address] Care Team Providers Care Roller Coaster Operator Name Role Phone Xuan Mckeon MD Primary Care Provider [phone] Yariel Schmid PharmD Unavailable Reason for Referral * Consultation (Routine) - Authorized Specialty Diagnoses / Procedures Referred By Contac t Referred To Contact Pharmacy Diagnoses Primary hypertension Type 2 diabetes mellitus without complication, without long-term current use of insulin (HCC) Xuan Mckeon MD [address] [place] [address] Phone: tel: fax: Referral ID Status Reason Start Date Expiration Date Visits Requested Visits Authorized [id number] Authorized Consult and Treat 06/14/2025 06/14/2026 6 6 Encounter Details Date Type Department Care Team (Late st Contact Info) Description 06/14/2025 Orders Only [facility] [address] [place] [address] Xuan Mckeon MD [address] [place] [address] [phone] Primary hypertension (Primary Dx); Type 2 diabetes [...] Info) Description 11/02/2025 10:30 AM EST Telemedicine [facility] [address] [place] [address] Yariel Schmid, PharmD [address] [place] [address] Scheduled Referrals Name Type Priority Associated Diagnoses [...] documented as of this encounter Care Teams Roller Coaster Operator Relationship Specialty Start Date End Date Xuan Mckeon MD [address] [place] [address] PCP - General Family Medicine 09/20/20 Yariel Schmid, PharmD [address] [place] [address] Pharmacist Internal Medicine 11/23/22 documented as of this encounter
--- OUTSIDE RECORDS SUMMARY | 2025-08-22 14:59 | XMS_ITS | Encounter Summary ---
Author Organization [employer] Address [address] [facility] [address] 7t [place] [address] Care Team Providers Care Siphoner Name Role Phone Xuan Mckeon MD Primary Care Provider [phone] Yariel Schmid PharmD Unavailable [phone] Reason for Visit * Reason Comments Med Refill Encounter Details Date Type Department Care Team ([facility] st Contact Info) Description 03/06/2024 Refill [facility] MEDICINE 230 [place], [place] [phone] Ofelia Akhtar, ANP [address] [place], [place] [phone] Other specified anxiety disorders Social History Tobacco [...] EST Telemedicine [facility] MEDICINE [address] [place] [phone] Yariel Schmid PharmD [address] [place] [address] documented as of this encounter Goals Goal [...] documented as of this encounter Care Teams Siphoner Relationship Specialty Start Date End Date Xuan Mckeon MD [address] [place] [address] PCP - General Family Medicine 09/20/20 Yariel Schmid PharmD [address] [place] [address] Pharmacist Internal Medicine 11/23/22 documented as of this encounter
--- OUTSIDE RECORDS SUMMARY | 2025-08-22 14:59 | XMS_ITS | Encounter Summary ---
Author Organization [employer] Address 75 [facility] [address]t [place] [address] Care Team Providers Care Claim Trainee Name Role Phone Xuan Mckeon MD Primary Care Provider [phone] Yariel Schmid PharmD Unavailable [phone] Encounter Details Date Type Department Care Team ([facility] st Contact Info) Description 12/06/2023 Orders Only [facility] MEDICINE [address] [place], [place] [phone] Xuan Mckeon MD [address] [place], [place] [phone] Social History Tobacco Use Types Packs/Day Years [...] Info) Description 11/02/2025 10:30 AM EST Telemedicine [facility] MEDICINE [address] [place] [address] Yariel Schmid PharmD [address] [place] [address] documented as of this encounter Goals Goal [...] documented as of this encounter Care Teams Claim Trainee Relationship Specialty Start Date End Date Xuan Mckeon MD [address] [place] [address] PCP - General Family Medicine 09/20/20 Yariel Schmid, CristóbalD [address] [place] [address] Pharmacist Internal Medicine 11/23/22 documented as of this encounter
--- OUTSIDE RECORDS SUMMARY | 2025-08-22 14:59 | XMS_ITS | Encounter Summary ---
Author Organization [employer] Address [address] [facility] [address] [place] [address] Care Team Providers Care Aerodynamics Teacher Name Role Phone Xuan Mckeon MD Primary Care Provider [phone] Yariel Schmid PharmD Unavailable [phone] Reason for Visit * Reason Onset Date Comments Appointment Request 08/23/2024 Encounter Details Date Type Department Care Team ([facility] st Contact Info) Description 08/23/2024 Telephone [facility] MEDICINE [address] [place] [address] Xuan Mckeon MD [address] [place] [address] Appointment Request Social History Tobacco Use Types [...] today's CDTM visit. Please contact pt at [phone]. ([place] Speaker) documented in this encounter Plan of Treatment Upcoming Encounters Date Type Department Care Team ([facility] st Contact Info) Description 11/02/2025 10:30 AM EST Telemedicine [facility] MEDICINE [address] [place] [address] Yariel Schmid PharmD [address] [place] [address] documented as of this encounter Goals Goal [...] documented as of this encounter Care Teams Aerodynamics Teacher Relationship Specialty Start Date End Date Xuan Mckeon MD [address] [place] [address] PCP - General Family Medicine 09/20/20 Yariel Schmid, CristóbalD [address] [place] [address] Pharmacist Internal Medicine 11/23/22 documented as of this encounter
--- OUTSIDE RECORDS SUMMARY | 2025-08-22 14:59 | XMS_ITS | Encounter Summary ---
Author Organization [employer] Address 75 [facility] 7t [place] [address] Care Team Providers Care Executive Relations Specialist Name Role Phone Xuan Mckeon MD Primary Care Provider [phone] Yariel Schmid PharmD Unavailable [phone] Reason for Visit * Reason Comments Med Refill Encounter Details Date Type Department Care Team ([facility] st Contact Info) Description 10/18/2024 Refill [facility] MEDICINE [address] [place], [place] [phone] Xuan Mckeon MD [address] [place], [place] [phone] Fibromyalgia Social History Tobacco Use Types Packs/Day [...] [facility] MEDICINE [address] [place] [address] Yariel Schmid, CristóbalD [address] [place] [address] documented as of this encounter Goals Goal [...] documented as of this encounter Care Teams Executive Relations Specialist Relationship Specialty Start Date End Date Xuan Mckeon MD [address] [place] [address] PCP - General Family Medicine 09/20/20 Yariel Schmid, PharmD [address] [place] [address] Pharmacist Internal Medicine 11/23/22 documented as of this encounter
--- OUTSIDE RECORDS SUMMARY | 2025-08-22 14:59 | XMS_ITS | Encounter Summary ---
Author Organization [employer] Address [address] [facility] [address] 7[address] [place] [address] Care Team Providers Care Safety Advisor Name Role Phone Xuan Mckeon MD Primary Care Provider [phone] Yariel Schmid PharmD Unavailable [phone] Encounter Details Date Type Department Care Team ([facility] st Contact Info) Description 12/24/2023 Orders Only [facility] MEDICINE [address] [place], [place] [phone] Xuan Mckeon MD [address] [place], [place] [phone] Dermatitis (Primary Dx) Social History Tobacco Use [...] Info) Description 11/02/2025 10:30 AM EST Telemedicine [facility] MEDICINE 230 [place] [address] Yariel Schmid, Leelee [address] [place] [address] documented as of this encounter Goals Goal [...] documented as of this encounter Care Teams Safety Advisor Relationship Specialty Start Date End Date Xuan Mckeon MD [address] [place] [address] PCP - General Family Medicine 09/20/20 Yariel Schmid, Leelee [address] [place] [address] [phone] Pharmacist Internal Medicine 11/23/22 documented as of this encounter
== END 2025-08-22 11:17 | disposition home or self-care (01) ==
LOC: HO.NEURO 11:16
PROVIDERS: PCP Family Medicine; Visit Provider Psychiatry & Neurology Neurology
DX: R20.0 Anesthesia of skin (principal); R20.2 Paresthesia of skin
CPT/HCPCS: 95886; 95911

== ENCOUNTER → 2025-08-22 11:21 | Outpatient (BNV) | payer OTHER, SELFPAY | PROVIDERS: PCP Family Medicine; Visit Provider Physical Medicine & Rehabilitation | DX: G56.03 Carpal tunnel syndrome, bilateral upper limbs (principal); R20.0 Anesthesia of skin | CPT/HCPCS: 95886; 95911 ==